=== PATIENT | male | born 1940 | race Caucasian/White ===

== ENCOUNTER → 2020-01-18 13:30 | Outpatient (BNVA) | payer MEDICARE, SELFPAY | PROVIDERS: Family Provider Family Medicine; PCP Family Medicine; Visit Provider Nurse Practitioner Family | DX: R39.9 Unspecified symptoms and signs involving the genitourinary system (principal); N40.1 Benign prostatic hyperplasia with lower urinary tract symptoms; N13.8 Other obstructive and reflux uropathy; N35.919 Unspecified urethral stricture, male, unspecified site | CPT/HCPCS: 81001 ==

== ENCOUNTER → 2020-02-22 09:33 | Outpatient (BNVA) | payer MEDICARE, SELFPAY | PROVIDERS: Family Provider Family Medicine; PCP Family Medicine; Visit Provider Urology | DX: N35.919 Unspecified urethral stricture, male, unspecified site (principal) | CPT/HCPCS: 81001 ==

== ENCOUNTER → 2020-06-12 09:46 | Outpatient (BNVA) | payer MEDICARE, SELFPAY | PROVIDERS: Family Provider Family Medicine; PCP Family Medicine; Visit Provider Urology | DX: R39.9 Unspecified symptoms and signs involving the genitourinary system (principal); N35.919 Unspecified urethral stricture, male, unspecified site | CPT/HCPCS: 81001 ==

== ENCOUNTER → 2020-12-12 09:13 | Outpatient (BNVA) | payer MEDICARE, SELFPAY | PROVIDERS: PCP Family Medicine; Visit Provider Urology | DX: R39.9 Unspecified symptoms and signs involving the genitourinary system (principal); N99.112 Postprocedural membranous urethral stricture, male | CPT/HCPCS: 81003 ==

== ENCOUNTER 2020-12-19 16:23 | Outpatient (CLI) | payer MEDICARE, SELFPAY ==
--- NOTE | 2020-12-19 | MR_ITS ---
WS: [id number] MRI LEFT KNEE NONCONTRAST TECHNIQUE: Axial PD, coronal PD fat sat, coronal PD, sagittal PD, and sagittal PD fat-sat images obta ined. CLINICAL INFORMATION: MEDIAL TEAR LEFT COMPARISON: None. FINDINGS: Distal quadriceps and patella tendons are intact. Small suprapatellar effusion. Chronic thinning of t he ACL. No acute appearing ACL tears. Normal PCL. Normal lateral meniscus. Blunting of the posterior horn medial meniscus with chronic meniscal tear. Edema with acute appearing radial tear involving the posterior horn medial meniscus. Moderate to advanced chondromalacia involving the medial and lateral joint compartments with joint sp anisha narrowing. Normal lateral collateral ligament. Soft tissue edema and fluid deep to the MCL consis tent with ligamentous injury. MCL is intact. 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 Subchondral edema. MR/MR knee LT wo con* [id number] IMPRESSION: 1. Small suprapatellar effusion. 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 2. Chronic appearing thinning of the ACL which appears intact. Normal PCL. 3. Chronic thinning of the medial meniscus with acute and chronic tears involv ing the posterior horn medial meniscus extending to the articular surface. Acut e appearing radial tear. 4. Edema along the MCL consistent with ligamentous injury which appears intact . Normal LCL. 5. Advanced chondromalacia patella with multiple prominent chondral defects wo rse involving the medial patella facet. Small amount of subchondral edema.
== END 2020-12-19 16:24 | disposition home or self-care (01) ==
PROVIDERS: PCP Family Medicine; Visit Provider Orthopaedic Surgery
DX: S83.242A Other tear of medial meniscus, current injury, left knee, initial encounter (principal); M25.462 Effusion, left knee; M22.42 Chondromalacia patellae, left knee; R60.0 Localized edema; X58.XXXA Exposure to other specified factors, initial encounter
CPT/HCPCS: 73721

== ENCOUNTER → 2021-07-30 07:57 | Outpatient (BNVA) | payer MEDICARE, SELFPAY | PROVIDERS: PCP Family Medicine; Visit Provider Nurse Practitioner Family | DX: N99.112 Postprocedural membranous urethral stricture, male (principal); R39.9 Unspecified symptoms and signs involving the genitourinary system; B37.49 Other urogenital candidiasis | CPT/HCPCS: 81003 ==

== ENCOUNTER 2021-08-03 13:42 | Emergency (ER) | payer MEDICARE, SELFPAY ==
[2021-08-03 13:49] VITALS: BP 181/83; PULSE 90; RESP 16; TEMP 36.7; O2SAT 97
--- NOTE | 2021-08-03 14:25 | ED_ITS ---
HPI - Male Genitourinary General: Chief complaint: Urogenital-Male Stated complaint: UTI, Private area swelling Time Seen by Provider: 08/03/21 14:06 PFSH ED PFSH: Medical History Lower urinary tract symptoms (LUTS) Urethral stricture Surgical History H/O arthroscopy of knee left H/O rotator cuff surgery left History of carpal tunnel release left Hx of tonsillectomy Family History Father , at age 63 Cancer tongue Mother , at age 64 Lung disease Social History Alcohol intake: current Alcohol intake frequency: 0-2 Drinks per Day Marital status: Current occupational status: retired History of recent travel: No Course Vital Signs: Vital signs: Vital Signs Temperature 98.1 F 08/03/21 13:49 Pulse Rate 90 08/03/21 13:49 Respiratory Rate 16 08/03/21 13:49 Blood Pressure 181/83 08/03/21 13:49 Pulse Oximetry 97 08/03/21 13:49 MDM - Male Imaging Data: Other Imaging: Radiologist's impression: [address] [id number] ReportSigned Patient: Tanvir Avilez #: [id number]: 2Acct#:[id number]/Sex: 81 / MADM Date: 08/03/21Loc: ERRoom/Bed:Attending Dr: Ordering Provider/Ordering MD: Negro Boswell MD Date of Service: 08/03/21 Procedure(s): US scrotum [id number] Accession Number(s): [id number] Report Number: [id number] PROCEDURE INFORMATION: Exam: US Scrotum Exam date and time: 08/03/2021 2:25 PM Age: 81 years old Clinical indication: Swelling, testicles or scrotum; Additional info: Eval for L testicular pathology TECHNIQUE: Imaging protocol: Real-time ultrasound of the scrotum and contents with color Doppler and image documentation. [place] [facility] [place] [place]/06/[place] 10:01 AM FINDINGS: Right testicle: Right testis measures 4.1 x 2.6 x 3.3 cm. 4 mm right testicular cyst. Intratesticular blood flow demonstrated. Left testicle: Left testis measures 4.5 x 3.0 x 3.2 cm. No intratesticular mass. Asymmetric left intratesticular hyperemia on color flow imaging, raising the possibility of orchitis. Clinical correlation is recommended. Epididymides: Bilateral epididymal cysts. Scrotum: Asymmetric hydroceles, left greater than right, with internal echoes in the left hydrocele. US/US scrotum [id number] IMPRESSION: 1. Asymmetric left intratesticular hyperemia on color flow imaging, raising the possibility of orchitis. Clinical correlation is recommended. 2. Asymmetric hydroceles, left greater than right, with internal echoes in the left hydrocele. 3. Subcentimeter right testicular and bilateral epididymal cysts. Radiation Dose CTDIVOL = (mGy): DLP = (mGy-cm) Dictated By:Kralo Butt MDSigned By:Karlo Butt MDSigned Date/Time:08/03/21 1538DD/ 1425 Discharge Plan Discharge Patient Disposition: Home Clinical Impression: Swelling of testicle, Erythema of skin Condition: Stable Prescriptions: New Antifungal (clotrimazole) 1 % cream 1 applic topical Q12H 14 Days RF: 0 Zyrtec 10 mg tablet 5 mg PO DAILY PRN (Reason: pruritis) 10 Days Qty: 10 RF: 0 No Action phenytoin sodium extended [Dilantin Extended] 100 mg capsule 100 mg PO BID RF: 0 vitamin B complex [B Complex-Vitamin B12] Tablet 1 tab PO DAILY RF: 0 ascorbate calcium (vitamin C) 500 mg tablet 500 mg PO DAILY RF: 0 flaxseed oil 1,000 mg capsule 1,000 mg PO DAILY RF: 0 omega-3 fatty acids [Fish Oil Concentrate] 1,000 mg capsule 1,000 mg PO DAILY RF: 0 melatonin 10 mg capsule 10 mg PO DAILY RF: 0 selenium 100 mcg tablet 100 mcg PO DAILY RF: 0 cholecalciferol (vitamin D3) 10 mcg (400 unit) capsule 10 mcg PO DAILY RF: 0 Referrals: Darell Jackson MD [Primary Care Provider] - Discharge Diet: Advance as tolerated Discharge Activity: Resume usual activity Patient Instructions: Testicular Self-Exam Activity Restrictions/Additional Instructions: Follow-up with Dr. Witt in the next few days for further evaluation of your symptoms., To the emergency room you have any pain, fever/chills, worsening redness, worsening testicular swelling, or new concerning complaints. 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
--- NOTE | 2021-08-03 15:57 | ED_ITS ---
HPI - General Adult General: Chief complaint: Urogenital-Male Stated complaint: UTI, Private area swelling Time Seen by Provider: 08/03/21 14:06 History of Present Illness: HPI narrative: Patient is a 81-year-old male with a history of self cath followed by Dr. Witt presenting to emergency room for evaluation of left testicular swelling erythema and pruritus. Patient was seen by nurse practitioner earlier this week and was told that he may have a fungal infection. Since then, patient has noticed increased swelling and mild pain. Patient denies any urinary discharge. Is not currently sexually active. Patient denies any fever/chills, dysuria/hematuria/polyuria. Patient denies any trauma to the groin. Patient was evaluated on 07/30/2021 and was diagnosed with candidasis infection Onset: 1 week ago Duration:1 week Location:home Severity:moderate Review of Systems Narrative: Constitutional: No fever, no chills. HEENT: No vision changes CV: No chest pain, no palpitations PULM: no cough, no dyspnea. GI: No abdominal pain, no N/V/D. : No dysuria MSKEL: No muscle pain SKIN: +L testicular erythema and swelling, +L testicular pruritis NEURO: No headache, no focal weakness. HEME: No visible bruises PSYCH: Normal mood PFSH ED PFSH: Medical History Lower urinary tract symptoms (LUTS) Urethral stricture Surgical History H/O arthroscopy of knee left H/O rotator cuff surgery left History of carpal tunnel release left Hx of tonsillectomy Family History Father , at age 63 Cancer tongue Mother , at age 64 Lung disease Social History Alcohol intake: current Alcohol intake frequency: 0-2 Drinks per Day Marital status: Current occupational status: retired History of recent travel: No Physical Exam Narrative: EXAM NARRATIVE: Head: Atraumatic Eyes: PERRL, conjunctiva without injection ENT: Mucous membrane moist NECK: Supple, ROM intact LUNGS: LCTAB, no crackles/rhonchi CV: RRR ABDOMEN: Soft, nontender in all quadrants EXTREMITY: Normal ROM SKIN: No rash or erythema NEURO: Awake and alert, no focal motor deficits PSYCH: Normal mood and affect : +mild L testicular swelling and erythema, no tenderness to palpation, normal testicular lie, cremesteric reflex intact L side Course Vital Signs: Vital signs: Vital Signs Temperature 98.1 F 08/03/21 13:49 Pulse Rate 82 08/03/21 16:01 Respiratory Rate 15 08/03/21 16:01 Blood Pressure 181/83 08/03/21 13:49 Pulse Oximetry 97 08/03/21 16:01 MDM - General Adult MDM Narrative: Medical decision making narrative: 81-year-old male presenting to the emergency room for evaluation of left testicular swelling, erythema, and pruritus with occasional pain. On exam, patient has mild swelling and erythema of the left testicle. No suspicion for ovarian torsion given findings on physical exam. He is not currently sexually active. Ultrasound showed possible orchitis given hyperemia of the testes. In the setting of self cath, likely this can be an infection. Will treat with levofloxacin 500 mg daily x10 days. I discussed with patient the risk of using levofloxacin including aortic dissection and tendinopathy. Patient is aware of these risk factors and elects to take the medicine. In addition, I will give patient clotrimazole for possible fungal infection of the skin and Zyrtec for pruritis. Disposition: Discharge. Patient counseled regarding diagnostic impression, treatment plan. Patient given ED strict return precautions to return for continuation, worsening, or development of new symptoms. Instructed to f/u w/ Urology regarding symptoms today. Patient verbalized understanding. Imaging Data^: Other Imaging: Radiologist's impression: [id number] [place], [place] [address]Czfwncgbky ReportSigned Patient: Tanvir Avilez #: [id number]: 2Acct#:[id number]/Sex: 81 / MADM Date: 08/03/21Loc: ERRoom/Bed:Attending Dr: Ordering Provider/Ordering MD: Negro Boswell MD Date of Service: 08/03/21 Procedure(s): US scrotum [id number] Accession Number(s): [id number] Report Number: [id number] PROCEDURE INFORMATION: Exam: US Scrotum Exam date and time: 08/03/2021 2:25 PM Age: 81 years old Clinical indication: Swelling, testicles or scrotum; Additional info: Eval for L testicular pathology TECHNIQUE: Imaging protocol: Real-time ultrasound of the scrotum and contents with color Doppler and image documentation. [place]: [facility] [place] Testicular 07/06/2015 10:01 AM FINDINGS: Right testicle: Right testis measures 4.1 x 2.6 x 3.3 cm. 4 mm right testicular cyst. Intratesticular blood flow demonstrated. Left testicle: Left testis measures 4.5 x 3.0 x 3.2 cm. No intratesticular mass. Asymmetric left intratesticular hyperemia on color flow imaging, raising the possibility of orchitis. Clinical correlation is recommended. Epididymides: Bilateral epididymal cysts. Scrotum: Asymmetric hydroceles, left greater than right, with internal echoes in the left hydrocele. US/US scrotum [id number] IMPRESSION: 1. Asymmetric left intratesticular hyperemia on color flow imaging, raising the possibility of orchitis. Clinical correlation is recommended. 2. Asymmetric hydroceles, left greater than right, with internal echoes in the left hydrocele. 3. Subcentimeter right testicular and bilateral epididymal cysts. Radiation Dose CTDIVOL = (mGy): DLP = (mGy-cm) Dictated By:Karlo Butt MDSigned By:Karlo Butt MDSigned Date/Time:08/03/21 1538DD/ 1425 Discharge Plan Discharge Patient Disposition: Home Clinical Impression: Swelling of testicle, Erythema of skin, Orchitis Condition: Stable Prescriptions: New Antifungal (clotrimazole) 1 % cream 1 applic topical Q12H 14 Days RF: 0 Zyrtec 10 mg tablet 5 mg PO DAILY PRN (Reason: pruritis) 10 Days Qty: 10 RF: 0 levofloxacin 500 mg tablet 500 mg PO DAILY 10 Days RF: 0 No Action phenytoin sodium extended [Dilantin Extended] 100 mg capsule 100 mg PO BID RF: 0 vitamin B complex [B Complex-Vitamin B12] Tablet 1 tab PO DAILY RF: 0 ascorbate calcium (vitamin C) 500 mg tablet 500 mg PO DAILY RF: 0 flaxseed oil 1,000 mg capsule 1,000 mg PO DAILY RF: 0 omega-3 fatty acids [Fish Oil Concentrate] 1,000 mg capsule 1,000 mg PO DAILY RF: 0 melatonin 10 mg capsule 10 mg PO DAILY RF: 0 selenium 100 mcg tablet 100 mcg PO DAILY RF: 0 cholecalciferol (vitamin D3) 10 mcg (400 unit) capsule 10 mcg PO DAILY RF: 0 Discharge Orders: Discharge ED (Routine); Ordered 08/03/21 Ordered By: Negro Boswell Referrals: Darell Jackson MD [Primary Care Provider] - Discharge Diet: Advance as tolerated Discharge Activity: Resume usual activity Patient Instructions: Testicular Self-Exam Activity Restrictions/Additional Instructions: Follow-up with Dr. Witt in the next few days for further evaluation of your symptoms., To the emergency room you have any pain, fever/chills, worsening redness, worsening testicular swelling, or new concerning complaints. Please take your antibiotics as instructed. Come back if you have any issues. 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
[2021-08-03 16:01] VITALS: PULSE 82; RESP 15; O2SAT 97
== END 2021-08-03 16:02 | disposition home or self-care (01) ==
PROVIDERS: Emergency Provider Emergency Medicine; PCP Family Medicine
DX: N50.89 Other specified disorders of the male genital organs (principal); L53.8 Other specified erythematous conditions; N45.2 Orchitis
CPT/HCPCS: 76870; 99283

== ENCOUNTER → 2021-09-11 12:55 | Outpatient (BNVA) | payer MEDICARE, SELFPAY | PROVIDERS: PCP Family Medicine; Visit Provider Urology | DX: R39.9 Unspecified symptoms and signs involving the genitourinary system (principal); N99.112 Postprocedural membranous urethral stricture, male; N31.2 Flaccid neuropathic bladder, not elsewhere classified; L53.9 Erythematous condition, unspecified | CPT/HCPCS: 81003 ==

== ENCOUNTER 2021-11-16 12:16 | Emergency (ER) | payer MEDICARE, SELFPAY ==
[2021-11-16 12:21] VITALS: BP 164/89; PULSE 82; RESP 18; TEMP 36.8; O2SAT 97; BMI 25.0
--- NOTE | 2021-11-16 12:44 | CTR_ITS ---
PROCEDURE INFORMATION: Exam: CT Abdomen And Pelvis With Contrast Exam date and time: 11/16/2021 3:06 PM Age: 81 years old Clinical indication: Constipation; Additional info: Change in bowel and constipation TECHNIQUE: Imaging protocol: Computed tomography of the abdomen and pelvis with contrast. Radiation optimization: All CT scans at this facility use at least one of these dose optimization techniques: automated exposure control; mA and/or kV adjustment per patient size (includes targeted exams where dose is matched to clinical indication); or iterative reconstruction. Contrast material: OMNIPAQUE 300; Contrast volume: 95 ml; Contrast route: INTRAVENOUS (IV); COMPARISON: CT abdomen pelvis w con* [id number] 10/02/2016 9:52 AM RADIATION DOSE METRICS: Total DLP (mGy-cm): 1354.86 FINDINGS: Liver: Normal. No mass. Gallbladder and bile ducts: Normal. No calcified stones. No ductal dilation. Pancreas: Normal. No ductal dilation. Spleen: Normal. No splenomegaly. Adrenal glands: 1.4 cm left adrenal gland nodule, incompletely characterized on single contrast phase study, but statistically likely to represent an adenoma Kidneys and ureters: Normal. No hydronephrosis. Stomach and bowel: Colonic diverticulosis without findings of acute diverticulitis. No obstruction. No mucosal thickening. Appendix: No evidence of appendicitis. Intraperitoneal space: No free air. No significant fluid collection. Vasculature: No abdominal aortic aneurysm. Lymph nodes: No enlarged lymph nodes. Urinary bladder: Unremarkable as visualized. Reproductive: Unremarkable as visualized. Bones/joints: No acute fracture. Right hip arthroplasty noted. Soft tissues: Unremarkable. CT/CT abdomen pelvis w con* [id number] IMPRESSION: No acute findings.
--- NOTE | 2021-11-16 12:45 | W.ED.ABDPA2 ---
HPI - Abdominal Pain General: Chief Complaint: Abdominal Pain Stated Complaint: PT states theyre bowels are blocked Time Seen by Provider: 11/16/21 12:33 Source: patient Mode of arrival: ambulatory Limitations: no limitations History of Present Illness: This patient comes to the emergency department by private vehicle. He states over the past approximately 5 to 6 weeks he has had a change in his bowel habits. He states he normally would have bowel movements approximately 3 times daily and over the period of time of concern his bowel habits have diminished to perhaps 1 bowel movement daily and some days no bowel movement and over the last 48 hours he has felt as if he could not have a bowel movement without taking a laxative which he did yesterday. No bowel movement today. He denies any known blood in his bowel movements he states that they seem darker than a bit have been previously. He has had no abdominal surgeries. He has no history of having a colonoscopy but he states he was told he had irritable bowel syndrome in the past seem to have changing bowel habits related to stress but he is subsequently is retired and denies any emotional stress or feeling that his irritable bowel has flared up. He denies any coronary artery disease or diabetes or pulmonary disease. He has not had a change in his usual medications, diet etc. No travel or antibiotic use. He does not use tobacco but drinks occasional beer perhaps 1 beer a day. He denies any fevers or chills nausea vomiting or diarrhea. He does have some dysuria due to a urethral stricture that developed post hospitalization and catheterization. And states that he developed a urethral stricture and does self-catheterization on a daily basis. He normally can void but has been told by urologist to self cath to prevent stricture from reforming. Pertinent past history: constipation Associated Symptoms: Reports change in bowel habits and constipation; Denies chills, diarrhea, dysuria, fever(s), hematochezia, poor appetite and syncope Review of Systems Const: Denies: fever(s), chills, body aches or change in appetite Eyes: Denies: change in vision ENMT: Denies: throat pain, odynophagia, tinnitus or nasal congestion Card: Denies: chest pain, palpitations, irregular heart rhythm, edema or syncope Resp: Denies: dyspnea, productive cough or non-productive cough GI: Reports: constipation and change in bowel habits; Denies: diarrhea or hematochezia : Denies: flank pain, difficulty urinating, dysuria, urinary frequency, urinary urgency or urinary hesitancy Musc: Denies: neck pain, back pain, extremity pain or extremity swelling Skin/Breast: Denies: rash or sores Neuro: Denies: headache(s), numbness in extremities, weakness in extremities or vertigo Psych: Denies: anxiety, depression or mood swings Endo: Denies: polyuria Zeeshan/Lymph: Denies: easy bruising or easy bleeding All/Imm: Denies: urticaria PFSH ED PFSH: Medical History Lower urinary tract symptoms (LUTS) Urethral stricture Surgical History H/O arthroscopy of knee left H/O rotator cuff surgery left History of carpal tunnel release left Hx of tonsillectomy Family History Father , at age 63 Cancer tongue Mother , at age 64 Lung disease Social History Alcohol intake: current Alcohol intake frequency: 0-2 Drinks per Day Marital status: Current occupational status: retired History of recent travel: No Physical Exam Narrative: EXAM NARRATIVE: Patient is alert makes good eye contact. Speech is goal-directed. Const: COMMON NORMALS: no acute distress, average body habitus, patient oriented x3 and healthy appearing HENMT: COMMON NORMALS: normocephalic, atraumatic, external ears normal, Normal external nose present, moist oral mucous membranes and oropharynx normal HEAD & SCALP: normocephalic and atraumatic NOSE: Normal external nose present EXTERNAL EAR: Yes external ears normal Eye: COMMON NORMALS: Equal, round and reactive pupils present, EOMs intact bilaterally, conjunctivae normal and no scleral icterus CONJUNCTIVA: Yes conjunctivae normal PUPIL: Yes Equal, round and reactive pupils present Neck/C-Spine: COMMON NORMALS: full ROM, no lymphadenopathy, no JVD and Thyroid normal THYROID: Thyroid normal Lymph: LYMPHATIC: no lymphadenopathy noted Chest: COMMONS NORMALS: normal inspection of the chest Resp: COMMON NORMALS: normal respiratory effort, No retractions and clear to auscultation bilaterally AUSCULTATION: clear to auscultation bilaterally Cardio: COMMON NORMALS: no JVD, regular rate, regular rhythm and No murmurs present (Cardio) RATE: regular rate RHYTHM: regular rhythm GI: COMMON NORMALS: Normal to inspection, nondistended, normoactive bowel sounds present, Soft to palpation, non-tender, No hepatosplenomegaly present and no masses PALPATION: Yes Soft to palpation and Yes No hepatosplenomegaly present RECTAL EXAM: Yes visual inspection normal, Yes normal sphincter tone (No masses or stool within the length of the examining finger.), Yes prostate normal, No hemorrhoids, No Lesions present (GI), No Fistula present (GI) and No tenderness : COMMON NORMALS: Yes no CVA tenderness BLADDER/KIDNEY EXAM: Yes no CVA tenderness Back/Pelvis: COMMON NORMALS: no CVA tenderness, thoracic and lumbar spine normal to inspection, no thoracic nor lumbar tenderness, thoraco-lumbar ROM normal and straight leg raise negative bilaterally Extremity: COMMON NORMALS: normal to inspection, capillary refill normal, no joint enlargement, no calf tenderness and no pedal edema Neuro: COMMON NORMALS: patient oriented x3, no focal motor deficits and no sensory deficits noted CRANIAL NERVES: Yes CN normal except as noted Psych: COMMON NORMALS: mental status grossly normal and Normal thought process present THOUGHT PROCESS: Normal thought process present Skin: COMMON NORMALS: no rashes or lesions noted and no wounds GENERAL SKIN EXAM: no rashes or lesions noted Course Reevaluation(s): Reevaluation #1: Patient remained stable. No new findings on reexamination. Time: 15:54 Vital Signs: Vital signs: Vital Signs Temperature 98.2 F 11/16/21 12:21 Pulse Rate 82 11/16/21 12:21 Respiratory Rate 18 11/16/21 12:21 Blood Pressure 164/89 11/16/21 12:21 Pulse Oximetry 97 11/16/21 12:21 MDM - Abdominal Pain Medical Decision Making Patient's history of changing in's stool pattern over the last several weeks without any other worrisome findings on clinical exam. His laboratories as well as a CT scan are reassuring at this time without any evidence of a surgical abdomen, or other obvious pathology on CT scan. His urinalysis does have a bit of pyuria but is not having any symptoms he is afebrile not tachycardic etc. so we will going to culture his urine. He does do intermittent self cathing and this may be a contributing factor for this finding. I discussed all findings with the patient and their implications. I think he has somewhat high stress obsessed just individual as evidenced by his admitted history of irritable bowel syndrome. I advised him to: 1 start on a Metamucil bowel regimen, to contact his primary critical care nurse specialist to arrange referral for colonoscopy as he has never had 1. He voiced understanding of our discussion. Currently clinically stable without any evidence of ongoing emergency medical condition. We discussed return precautions. Differential Diagnosis Unlikely small bowel obstruction Medical Records I reviewed the patient's medical records. Lab Data I reviewed the patient's lab results. : 11/16/21 14:02 11/16/21 14:02 Labs/Radiology: Radiology Impressions Abdomen/Pelvis CT 11/16/21 12:44 IMPRESSION: No acute findings. Laboratory Results WBC 7.0 10^3/uL (4.0-10.0) 11/16/21 14:02 Corrected WBC Cancelled 11/16/21 13:06 RBC 4.42 10^6/uL (4.1-5.3) 11/16/21 14:02 Hgb 14.7 g/dL (11.7-16.6) 11/16/21 14:02 Hct 44.4 % (42.0-52.0) 11/16/21 14:02 MCV 100.5 fl (80-94) H 11/16/21 14:02 MCH 33.3 pg (28.0-34.0) 11/16/21 14:02 MCHC 33.1 g/dL (30.0-36.0) 11/16/21 14:02 RDW 12.4 % (12.1-15.1) 11/16/21 14:02 Plt Count 195 10^3/cmm (130-400) 11/16/21 14:02 MPV 8.7 fL (7.4-10.4) 11/16/21 14:02 Gran % Cancelled 11/16/21 13:06 Neut % (Auto) 55.1 % 11/16/21 14:02 Lymph % (Auto) 33.8 % 11/16/21 14:02 Glenn % (Auto) 9.7 % 11/16/21 14:02 Eos % (Auto) 0.4 % 11/16/21 14:02 Baso % (Auto) 0.9 % 11/16/21 14:02 Neut # (Auto) 3.84 10^3/uL (1.8-7.7) 11/16/21 14:02 Lymph # (Auto) 2.4 10^3/uL (0.8-4.8) 11/16/21 14:02 Glenn # (Auto) 0.7 10^3/uL (0.2-0.9) 11/16/21 14:02 Eos # (Auto) 0.0 10^3/uL (0.0-0.8) 11/16/21 14:02 Baso # (Auto) 0.1 10^3/uL (0.0-0.1) 11/16/21 14:02 Absolute Gran (auto) Cancelled 11/16/21 13:06 Nucleated RBC % (auto) 0 % 11/16/21 14:02 Nucleated RBCs # 0.0 /100WBC 11/16/21 14:02 Sodium 134 mmol/L (136-145) L 11/16/21 14:02 Potassium 4.3 mmol/L (3.5-5.1) 11/16/21 14:02 Chloride 101 mmol/L (98-107) 11/16/21 14:02 Carbon Dioxide 24 mmol/L (22-29) 11/16/21 14:02 Anion Gap 13.3 (5-19) 11/16/21 14:02 BUN 18 mg/dL (8-23) 11/16/21 14:02 Creatinine 0.7 mg/dL (0.7-1.2) 11/16/21 14:02 GFR Calculation Not Reportable 11/16/21 14:02 Glucose 97 mg/dL (65-115) 11/16/21 14:02 Calculated Osmolality 280 mOsm/kg (285-295) L 11/16/21 14:02 Calcium 9.5 mg/dL (8.5-10.5) 11/16/21 14:02 Total Bilirubin 0.3 mg/dL (0.15-1.2) 11/16/21 14:02 AST 22 U/L (0-40) 11/16/21 14:02 ALT 15 U/L (0-41) 11/16/21 14:02 Alkaline Phosphatase 117 IU/L (40-130) 11/16/21 14:02 Total Protein 6.8 g/dL (6.6-8.7) 11/16/21 14:02 Albumin 4.2 g/dL (3.5-5.2) 11/16/21 14:02 Globulin 2.6 g/dL (1.3-4.6) 11/16/21 14:02 Lipase 36 U/L (13-60) 11/16/21 14:02 Urine Color Yellow (Yellow) 11/16/21 Unknown Urine Appearance Sl hazy (CLEAR) 11/16/21 Unknown Urine pH 6.5 (5-7) 11/16/21 Unknown Ur Specific Eden 1.015 (1.005-1.030) 11/16/21 Unknown Urine Protein Neg (Negative) 11/16/21 Unknown Urine Glucose (UA) Norm (Normal) 11/16/21 Unknown Urine Ketones Negative (Negative) 11/16/21 Unknown Urine Blood Neg (Negative) 11/16/21 Unknown Urine Nitrate Negative (Negative) 11/16/21 Unknown Urine Bilirubin Neg (Negative) 11/16/21 Unknown Urine Urobilinogen Norm mg/dL (Negative) 11/16/21 Unknown Ur Leukocyte Esterase 1+ (Negative) H 11/16/21 Unknown Urine RBC None /hpf (0-2) 11/16/21 Unknown Urine WBC 15-25 /hpf (0-5) H 11/16/21 Unknown Ur Squamous Epith Cells None /hpf (0-5) 11/16/21 Unknown Amorphous Sediment Not Reportable 11/16/21 Unknown Urine Bacteria 2+ /hpf (NONE) H 11/16/21 Unknown Other Data Reviewed radiology report no evidence of acute pathology. Discharge Plan Discharge Patient Disposition: Home Clinical Impression: History of change in bowel patterns Condition: Stable Prescriptions: No Action phenytoin sodium extended [Dilantin Extended] 100 mg capsule 100 mg PO BID 0RF vitamin B complex [B Complex-Vitamin B12] Tablet 1 tab PO DAILY 0RF ascorbate calcium (vitamin C) 500 mg tablet 500 mg PO DAILY 0RF flaxseed oil 1,000 mg capsule 1,000 mg PO DAILY 0RF Rx Instructions: administer with a meal omega-3 fatty acids [Fish Oil Concentrate] 1,000 mg capsule 1,000 mg PO DAILY 0RF melatonin 10 mg capsule 10 mg PO DAILY 0RF selenium 100 mcg tablet 100 mcg PO DAILY 0RF cholecalciferol (vitamin D3) 10 mcg (400 unit) capsule 10 mcg PO DAILY 0RF Discharge Orders: Discharge ED (Routine); Ordered 11/16/21 Ordered By: Santos Ruiz Referrals: Darell Jackson MD [Primary Care Provider] - (schedule for colonoscopy) Discharge Diet: Usual diet Discharge Activity: Resume usual activity Patient Instructions: Opioid Safety Activity Restrictions/Additional Instructions: Purchase [id number] MiraLAX and begin a regimen of 1 tablespoon in water daily. Continue usual activity and diet and medications. Contact your primary critical care nurse specialist to discuss referral for a colonoscopy. Should you develop any new, persistent, worsening symptoms such as abdominal pain, blood in your stools, high fevers return to this or the nearest emergency department. We have cultured your urine to ensure that there is no significant infection and you will be contacted by the staff should this culture require further intervention. Coding Level of Care Code ED Crimping Machine Operator for [place] Fwd Exam Comprehensive
[2021-11-16 14:13] LABS: Basophils # 0.1 10^3/uL (0.0-0.1); Basophils % 0.9 %; Eosinophils % 0.4 %; Hematocrit 44.4 % (42.0-52.0); Hemoglobin 14.7 g/dL (11.7-16.6); Lymphocytes # 2.4 10^3/uL (0.8-4.8); Lymphocytes % 33.8 %; Mean Corpuscular HGB Conc 33.1 g/dL (30.0-36.0); Mean Corpuscular Hemoglobin 33.3 pg (28.0-34.0); Mean Corpuscular Volume 100.5 fl (80-94); Mean Platelet Volume 8.7 fL (7.4-10.4); Monocytes # 0.7 10^3/uL (0.2-0.9); Monocytes % 9.7 %; Neutrophils # 3.84 10^3/uL (1.8-7.7); Neutrophils % 55.1 %; Nucleated Red Blood Cells % 0 %; Platelet Count 195 10^3/cmm (130-400); Red Blood Count 4.42 10^6/uL (4.1-5.3); Red Cell Distribution Width 12.4 % (12.1-15.1)
[2021-11-16 14:54] LABS: Alanine Aminotransferase 15 U/L (0-41); Albumin Level 4.2 g/dL (3.5-5.2); Alkaline Phosphatase 117 IU/L (40-130); Anion Gap 13.3 (5-19); Aspartate Amino Transferase 22 U/L (0-40); Blood Urea Nitrogen 18 mg/dL (8-23); Calcium 9.5 mg/dL (8.5-10.5); Carbon Dioxide 24 mmol/L (22-29); Chloride 101 mmol/L (98-107); Globulin 2.6 g/dL (1.3-4.6); Glucose 97 mg/dL (65-115); Lipase 36 U/L (13-60); Osmolality Calculated 280 mOsm/kg (285-295); Potassium 4.3 mmol/L (3.5-5.1); Sodium 134 mmol/L (136-145); Total Bilirubin 0.3 mg/dL (0.15-1.2); Total Protein 6.8 g/dL (6.6-8.7)
[2021-11-16] MEDS: iohexol 300 mg/mL 100 mL Btl IV (15:03)
[2021-11-16 15:12] LABS: Protein Urine Neg (Negative); Specific Gravity, Urine 1.015 (1.005-1.030); Urine Appearance SL Hazy (CLEAR); Urine Color Yellow (Yellow); pH Urine 6.5 (5-7)
[2021-11-16 15:13] LABS: Add Urine Culture? Yes; Add Urine Microscopic? YES; Bacteria Urine 2+ /hpf; Bilirubin Urine Neg (Negative); Blood Urine Neg (Negative); Glucose Urine UA Norm (Normal); Ketones Urine Negative (Negative); Leukocyte Esterase Urine 1+ (Negative); Nitrate Urine Negative (Negative); Urobilinogen Urine Norm (Negative); WBC Urine 15-25 /hpf (0-5)
[2021-11-16 16:41] VITALS: BP 167/97; PULSE 78; RESP 17; O2SAT 95
== END 2021-11-16 16:43 | disposition home or self-care (01) ==
PROVIDERS: Emergency Provider Emergency Medicine; PCP Family Medicine
DX: K59.00 Constipation, unspecified (principal)
CPT/HCPCS: 74177; 80053; 81001; 83690; 85025; 87077; 87086; 87186; 99283; Q9967

== ENCOUNTER → 2021-12-05 13:15 | Outpatient (BNVA) | payer MEDICARE, SELFPAY | PROVIDERS: PCP Family Medicine; Visit Provider Urology | DX: N31.2 Flaccid neuropathic bladder, not elsewhere classified (principal); Z79.899 Other long term (current) drug therapy | CPT/HCPCS: 81003; 87077; 87086; 87184 ==

== ENCOUNTER → 2022-02-24 11:04 | Outpatient (BNVA) | payer MEDICARE, SELFPAY | PROVIDERS: PCP Family Medicine; Visit Provider Nurse Practitioner Family | DX: N99.112 Postprocedural membranous urethral stricture, male (principal); R39.9 Unspecified symptoms and signs involving the genitourinary system | CPT/HCPCS: 81003; 87086; 99213 ==

== ENCOUNTER → 2022-04-21 15:39 | Outpatient (BNVA) | payer MEDICARE, SELFPAY | PROVIDERS: PCP Family Medicine; Visit Provider Urology | DX: N99.112 Postprocedural membranous urethral stricture, male (principal); F41.9 Anxiety disorder, unspecified; N50.89 Other specified disorders of the male genital organs; R39.9 Unspecified symptoms and signs involving the genitourinary system | CPT/HCPCS: 51741; 51798; 81003; 99213 ==

== ENCOUNTER 2023-06-02 12:26 | Inpatient (IN) | payer MEDICARE, SELFPAY ==
[2023-06-02] VITALS (57 sets, daily range): BP systolic 117–159; BP diastolic 64–99; PULSE 69–154; RESP 7–24; TEMP 36.7–36.8; O2SAT 93–99; BMI 24.3
--- NOTE | 2023-06-02 12:32 | ECG_ITS ---
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 Measurements Intervals [place] Rate: 154 P: 0 CT: 0 QRS: -19 QRSD: 83 T: 97 QT: 242 QTc: 388 Interpretive Statements ATRIAL FLUTTER WITH RAPID VENTRICULAR RESPONSE NONSPECIFIC ST & T-WAVE ABNORMALITY CRITICAL TEST RESULT No previous ECG available for comparison Electronically Signed On 06-02-2023 16:46:26 CDT by Madina Phelps M.D. [id number]
--- NOTE | 2023-06-02 12:35 | ECG_ITS ---
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 Measurements Intervals [place] Rate: 74 P: 65 ID: [id number] QRS: -15 QRSD: 90 T: 51 QT: 351 QTc: 391 Interpretive Statements SINUS RHYTHM LOW QRS VOLTAGE IN PRECORDIAL LEADS [QRS DEFLECTION < 1.0 mV IN CHEST LEADS] MODERATE VOLTAGE CRITERIA FOR LVH, CONSIDER NORMAL VARIANT [MEETS CRITERIA IN ONE OF: R(aVL), S(V1), R(V5), R(V5/V6)+S(V1)] No previous ECG available for comparison Electronically Signed On 06-02-2023 16:45:45 CDT by Madina Phelps M.D. [id number]
--- NOTE | 2023-06-02 12:35 | XR_ITS ---
WS: [id number] EXAMINATION: XR chest 1V portable [id number] REASON FOR EXAM: dyspnea/cough COMPARISON: Previous study ORDER DATE: 06/02/2023 12:37 PM FINDINGS: There are scattered parenchymal and perihilar granulomatous calcifications. The cardiac and mediastin al outlines are unremarkable. There are no pleural effusions. There is calcific aortic change. Degene rative spine changes are present. IMPRESSION: NO ACUTE PULMONARY CHANGE.
[2023-06-02] MEDS: dilTIAZem 5 mg/mL SDV 5 mL 20 MG IVP (12:43)
[2023-06-02] MEDS: dilTIAZem 100 MG in sodium chloride 0.9% (add-van) 100 ML IV (12:44)
[2023-06-02] MEDS: dilTIAZem 30 mg Tablet PO ×2 (12:52→17:56)
[2023-06-02 12:57] LABS: Basophils # 0.1 10^3/uL (0.0-0.1); Basophils % 0.7 %; Eosinophils # 0.1 10^3/uL (0.0-0.8); Eosinophils % 0.8 %; Hematocrit 48.3 % (37-53); Lymphocytes # 2.7 10^3/uL (0.8-4.8); Lymphocytes % 37.4 %; Mean Corpuscular HGB Conc 33.7 g/dL (30-55); Mean Corpuscular Hemoglobin 33.2 pg (27-33); Mean Corpuscular Volume 98.4 fl (82-101); Mean Platelet Volume 8.5 fL (7.4-10.4); Monocytes # 0.8 10^3/uL (0.2-0.9); Monocytes % 10.7 %; Neutrophils % 50.1 %; Nucleated Red Blood Cells % 0 %; Platelet Count 223 10^3/cmm (157-399); Red Blood Count 4.91 10^6/uL (3.85-5.65); Red Cell Distribution Width 12.7 % (12.1-15.1); White Blood Count 7.19 10^3/uL (3.29-11.43)
--- NOTE | 2023-06-02 13:04 | W.ED.ARRPALP ---
HPI - Arrhythmia/Palpitations General: Chief Complaint: Nausea/Vomiting/Diarrhea Stated Complaint: elevated hr, sent by Jackson Time Seen by Provider: 06/02/23 12:34 Source: patient Mode of arrival: ambulatory History of Present Illness: 83-year-old male presents emergency room directed here by his primary care from the office. He showed up there was some nausea he was found to be in A-fib with RVR. He has likely had this for several days. He has not had previously had any known history of A-fib he is not having any chest pain no orthopnea no shortness of breath no leg swelling some nausea and mild stomach upset no vomiting or diarrhea. He states this has been intermittently happening for a couple of weeks. No known history of atrial fibrillation he is not on any anticoagulation and no rate control medications. MD complaint: rapid heart beat Onset (ago): week(s) Duration: intermittent Severity: mild Associated symptoms: Reports nausea; Deny anxiety, cough, diaphoresis, muscle cramps, paresthesias, pre-syncope, sense of impending doom, short of breath, syncope or vomiting Review of Systems Const: Reports: fatigue and malaise; Denies: fever(s), chills or diaphoresis ENMT: Denies: throat pain, ear or mastoid pain, nasal discharge or nasal congestion Card: Reports: palpitations and irregular heart rhythm; Denies: chest pain, edema, swelling of feet/ankles, syncope or pre-syncope Resp: Denies: dyspnea, productive cough or non-productive cough GI: Reports: nausea; Denies: abdominal pain or vomiting : Denies: flank pain, dysuria, urinary frequency or urinary urgency Musc: Denies: muscle cramps Skin/Breast: Denies: rash or pruritus Psych: Denies: anxiety PFSH ED PFSH: Medical History Lower urinary tract symptoms (LUTS) Urethral stricture Surgical History H/O arthroscopy of knee left H/O rotator cuff surgery left History of carpal tunnel release left Hx of tonsillectomy Family History Father , at age 63 Cancer tongue Mother , at age 64 Lung disease Social History Smoking and tobacco status: never smoked Alcohol intake: current Alcohol intake frequency: 0-2 Drinks per Day Marital status: Current occupational status: retired Physical Exam Const: GENERAL APPEARANCE: cooperative and comfortable ORIENTATION/CONSCIOUSNESS: Yes awake, Yes oriented to person, Yes oriented to place and Yes oriented to time HENMT: COMMON NORMALS: normocephalic, atraumatic and hearing grossly normal bilaterally HEAD & SCALP: normocephalic and atraumatic Resp: COMMON NORMALS: normal respiratory effort, No retractions, No use of accessory muscles and clear to auscultation bilaterally AUSCULTATION: clear to auscultation bilaterally Cardio: COMMON NORMALS: No murmurs present (Cardio) RATE: tachycardic RHYTHM: abnormal rhythm irregularly irregular GI: COMMON NORMALS: Soft to palpation and No hepatosplenomegaly present AUSCULTATION: Yes normoactive bowel sounds PALPATION: Yes Soft to palpation, No Tenderness to palpation present (GI), No Guarding due to palpation present (GI) and Yes No hepatosplenomegaly present Extremity: COMMON NORMALS: normal to inspection, capillary refill normal, no clubbing, cyanosis or edema, no calf tenderness and no pedal edema Neuro: SENSORIUM/ORIENTATION: Yes oriented to person, Yes oriented to place and Yes oriented to time Skin: COMMON NORMALS: no rashes or lesions noted GENERAL SKIN EXAM: no rashes or lesions noted Course Vital Signs: Vital signs: Vital Signs Temperature 98.1 F 06/02/23 12:36 Pulse Rate 75 06/02/23 13:36 Respiratory Rate 16 06/02/23 13:36 Blood Pressure 120/66 06/02/23 13:36 Pulse Oximetry 97 06/02/23 13:36 Oxygen Delivery Me thod Room Air 06/02/23 12:55 MDM - Arrhythmia/Palpitations Medical Decision Making A-fib with RVR. Patient initially given Cardizem bolus which controlled his rate to the 70s rebounded to 100 very quickly. He was started on a drip and given oral Cardizem. At the time of this dictation he appears to have converted to a normal sinus rhythm we are repeating his EKG. Discussed with the hospitalist will admit for further work-up medication adjustments and consideration of anticoagulation. Medical Records I reviewed the patient's medical records. Lab Data I reviewed the patient's lab results. 06/02/23 12:42 06/02/23 12:42 Laboratory Results WBC 7.19 10^3/uL (3.29-11.43) 06/02/23 12:42 RBC 4.91 10^6/uL (3.85-5.65) 06/02/23 12:42 Hgb 16.30 g/dL (11.27-16.99) 06/02/23 12:42 Hct 48.3 % (37-53) 06/02/23 12:42 MCV 98.4 fl (82-101) 06/02/23 12:42 MCH 33.2 pg (27-33) H 06/02/23 12:42 MCHC 33.7 g/dL (30-55) 06/02/23 12:42 RDW 12.7 % (12.1-15.1) 06/02/23 12:42 Plt Count 223 10^3/cmm (157-399) 06/02/23 12:42 MPV 8.5 fL (7.4-10.4) 06/02/23 12:42 Neut % (Auto) 50.1 % 06/02/23 12:42 Lymph % (Auto) 37.4 % 06/02/23 12:42 [place] % (Auto) 10.7 % 06/02/23 12:42 Eos % (Auto) 0.8 % 06/02/23 12:42 Baso % (Auto) 0.7 % 06/02/23 12:42 Neut # (Auto) 3.60 10^3/uL (1.8-7.7) 06/02/23 12:42 Lymph # (Auto) 2.7 10^3/uL (0.8-4.8) 06/02/23 12:42 [place] # (Auto) 0.8 10^3/uL (0.2-0.9) 06/02/23 12:42 Eos # (Auto) 0.1 10^3/uL (0.0-0.8) 06/02/23 12:42 Baso # (Auto) 0.1 10^3/uL (0.0-0.1) 06/02/23 12:42 Nucleated RBC % (auto) 0 % 06/02/23 12:42 Nucleated RBCs # 0.0 /100WBC 06/02/23 12:42 Sodium 136 mmol/L (136-145) 06/02/23 12:42 Potassium 4.4 mmol/L (3.5-5.1) 06/02/23 12:42 Chloride 98 mmol/L (98-107) 06/02/23 12:42 Carbon Dioxide 28 mmol/L (22-29) 06/02/23 12:42 Anion Gap 14.4 (5-19) 06/02/23 12:42 BUN 20 mg/dL (8-23) 06/02/23 12:42 Creatinine 0.8 mg/dL (0.7-1.2) 06/02/23 12:42 GFR Calculation Not Reportable 06/02/23 12:42 Glucose 100 mg/dL (65-115) 06/02/23 12:42 Calculated Osmolality 285 mOsm/kg (285-295) 06/02/23 12:42 Calcium 9.4 mg/dL (8.5-10.5) 06/02/23 12:42 Total Bilirubin 0.2 mg/dL (0.15-1.2) 06/02/23 12:42 AST 24 U/L (0-40) 06/02/23 12:42 ALT 19 U/L (0-41) 06/02/23 12:42 Alkaline Phosphatase 132 U/L (40-130) H 06/02/23 12:42 NT-Pro-B Natriuret Pep 740 pg/mL (0-450) H 06/02/23 12:42 Total Protein 7.2 g/dL (6.6-8.7) 06/02/23 12:42 Albumin 4.6 g/dL (3.5-5.2) 06/02/23 12:42 Globulin 2.6 g/dL (1.3-4.6) 06/02/23 12:42 TSH 1.62 uIU/mL (0.27-4.20) 06/02/23 12:42 All radiology interpretation(s) finalized by discharge Discharge Plan Discharge Patient Disposition: Admitted As Inpatient Admit Provider: Nataliia Miles Clinical Impression: Atrial fibrillation, new onset, Atrial fibrillation with rapid ventricular response Condition: Stable Coding Level of Care Code ED Erecting Engineer for More Mallory
[2023-06-02 13:28] LABS: Alanine Aminotransferase 19 U/L (0-41); Albumin Level 4.6 g/dL (3.5-5.2); Alkaline Phosphatase 132 U/L (40-130); Anion Gap 14.4 (5-19); Aspartate Amino Transferase 24 U/L (0-40); Blood Urea Nitrogen 20 mg/dL (8-23); Calcium 9.4 mg/dL (8.5-10.5); Carbon Dioxide 28 mmol/L (22-29); Chloride 98 mmol/L (98-107); Creatinine Clr Calc Pharmacy 71.7731; Globulin 2.6 g/dL (1.3-4.6); Glucose 100 mg/dL (65-115); NT Pro B Type Natriuretic Pept 740 pg/mL (0-450); Osmolality Calculated 285 mOsm/kg (285-295); Potassium 4.4 mmol/L (3.5-5.1); Sodium 136 mmol/L (136-145); Total Bilirubin 0.2 mg/dL (0.15-1.2); Total Protein 7.2 g/dL (6.6-8.7)
[2023-06-02 13:40] LABS: Thyroid Stimulating Hormone 1.62 uIU/mL (0.27-4.20)
--- NOTE | 2023-06-02 14:19 | PM.HP ---
Providers/Chief Complaint Admitting Physician: Nataliia Miles MD Primary Care Provider: Darell Jackson MD Chief Complaint: elevated hr, sent by Manuel History of Present Illness Jesus Avilez is a 83 year old male without significant past medical history presented to the hospital with chief complaint of palpitations, A-fib RVR. He was at PCP clinic where his heart rate was high he denies to me any chest pain shortness of breath confusion patient has not noticed that his heart rate was high in the past. No history of hypertension diabetes CHF. His heart rate was in 80s at the time of my evaluation his rhythm was sinus, Requested echo, TSH, troponin and serial EKGs Review of Systems Const: Denies: fever(s) Eyes: Denies: change in vision ENMT: Denies: throat pain Card: Reports: palpitations; Denies: chest pain Resp: Denies: dyspnea GI: Denies: abdominal pain : Denies: flank pain Medications/Allergies Home Medications Medication Instructions Recorded Confirmed Last Taken Type phenytoin sodium extended 100 mg 100 mg PO BID 01/18/20 06/02/23 06/02/23 History capsule (Dilantin Extended) ascorbate calcium (vitamin C) 500 500 mg PO QAM 12/12/20 06/02/23 06/02/23 History mg tablet cholecalciferol (vitamin D3) 10 10 mcg PO QAM 12/12/20 06/02/23 06/02/23 History mcg (400 unit) capsule flaxseed oil 1,000 mg capsule 1,000 mg PO QAM 12/12/20 06/02/23 06/02/23 History selenium 100 mcg tablet 100 mcg PO QAM 12/12/20 06/02/23 06/02/23 History vitamin B complex (B 1 tab PO DAILY 12/12/20 06/02/23 06/02/23 History Complex-Vitamin B12 tablet) melatonin 5 mg tablet 5 mg PO QPM 06/02/23 06/02/23 06/01/23 History omega-3 fatty acids 1,000 mg 1,000 mg PO QAM 06/02/23 06/02/23 06/02/23 History capsule Allergies Allergy/AdvReac Type Severity Reaction Status Date / Time No Known Allergies Allergy Verified 04/21/22 15:54 PFSH Acute PFSH: Medical History Lower urinary tract symptoms (LUTS) Urethral stricture Surgical History H/O arthroscopy of knee left H/O rotator cuff surgery left History of carpal tunnel release left Hx of tonsillectomy Family History Father , at age 63 Cancer tongue Mother , at age 64 Lung disease Social History Smoking and tobacco status: never smoked Alcohol intake: current Alcohol intake frequency: 0-2 Drinks per Day Marital status: Current occupational status: retired Vitals/I&O/Wt Last Vital Signs Temp 98.1 F 06/02/23 12:36 Pulse 75 06/02/23 13:36 Resp 16 06/02/23 13:36 BP 120/66 06/02/23 13:36 Pulse Ox 97 06/02/23 13:36 O2 Del Method Room Air 06/02/23 12:55 Weight last 48 hrs Weight 72.575 kg Physical Exam Narrative: Pleasant and cooperative Sinus rhythm Heart rate in 80s Hemodynamic stable GCS 15 Facial ulcer Awake and alert In good spirits Sinus rhythm Data 06/03/23 04:46 06/03/23 04:46 A&P Assessment and plan (1) Atrial fibrillation, new onset: (2) Atrial fibrillation with rapid ventricular response: Plan New onset A-fib Heart rate well controlled Currently in sinus rhythm at the time of evaluation IV Cardizem turned off switch to p.o. Cardizem [id number] score2 for age, low moderate risk of CVA, will put him on aspirin high-dose once daily Check echo Check magnesium level Check D-dimer Cardiac diet Attestations Medical Necessity Statement*: Plan is to discharge him within 48 hours Diagnoses Atrial fibrillation, new onset I48.91 Atrial fibrillation with rapid ventricular response I48.91
--- NOTE | 2023-06-02 14:46 | USCV_ITS ---
Jesus Avilez Age: 83 Gender: M : 1940 Exam Date: 06/02/2023 16:18 Ordering Phys: Nataliia Miles MD Technologist: CT Exam [place] [facility] [place] Indication: afib BP: 141 / 74 HR: 86 Rhythm: Sinus Technical Quality: Adequate MEASUREMENTS (Male / Female) Normal Values 2D ECHO LV Chamber Size 3.5 cm RV Chamber Size 3.7 cm LVOT Diameter 2.2 cm LV Ejection Fraction MOD 2C 56.1 % LV Ejection Fraction 2C AL 59.0 % LA Diameter 3.6 cm LA Width 3.3 cm LA Height 4.3 cm RA Width 3.8 cm RA Height 4.3 cm Aorta at Sinotubular Diameter 2.7 cm M-MODE Aortic Annulus Diameter 3.1 cm LA Ao Ratio MM 1.3 MV E Point Septal Separation 0.8 cm DOPPLER AV Peak Velocity 123.0 cm/s LVOT Peak Velocity 115.0 cm/s AV Area Cont Eq vti 4.4 cm squared AV Area Cont Eq pk 3.5 cm squared MV Area PHT 3.5 cm squared Mitral E to A Ratio 0.7 MV E' Velocity 36.5 cm/s Mitral E to MV E' Ratio 7.0 Mitral E to LV E' Lateral Ratio 6.0 Mitral E to LV E' Septal Ratio 8.6 TR Peak Velocity 63.0 cm/s TR Peak Gradient 1.6 mmHg TV Peak E Velocity 62.0 cm/s Right Atrial Pressure 3.0 mmHg Pulmonary Artery Systolic Pressu 4.6 mmHg PV Peak Velocity 110.0 cm/s FINDINGS Left Ventricle Left ventricle is normal in size. LV systolic function is normal with EF of 55 to 60%. No regional wall motion abnormalities are seen. Grade 1 diastolic dysfunction Right Ventricle Normal in size and function Right Atrium Normal in size Left Atrium Normal in size Mitral Valve Structurally normal mitral valve. Trace mitral regurgitation Aortic Valve Structurally noraml aortic valve. No significant stenosis or regurgitation. Tricuspid Valve Trace tricuspid regurgitation. Insufficient TR jet to calculate RVSP Pulmonic Valve Not well visualized Pericardium Normal Aorta Normal in size IVC Appears to be normal CONCLUSIONS LV systolic function is normal with EF of 55-60% Grade 1 diastolic dysfunction Trace mitral regurgitation Trace tricuspid regurgitation Compared to prior echocardiogram from 09/13/2014, no significant changes are noted. Naga Celis MD (Electronically Signed) Final Date: 03 June 2023 11:01 S
--- NOTE | 2023-06-02 14:46 | PC.NURSE ---
Patient came from ED to CSU at 1445.
[2023-06-02 15:23] LABS: Estmated Average Glucose 105; Hemoglobin A1C 5.3 % (4.0-6.0)
[2023-06-02 15:25] LABS: D Dimer 0.53 ug/mLFEU (0-0.59)
[2023-06-02] MEDS: enoxaparin 80 mg/0.8 mL Syringe 70 MG SUBCUT (15:33)
[2023-06-02 15:37] LABS: Vitamin B12 776 pg/mL (232-1245)
--- NOTE | 2023-06-02 18:30 | PC.NURSE ---
Cardizem drip is stopped per Dr. Miles.
[2023-06-03] VITALS (54 sets, daily range): BP systolic 119–127; BP diastolic 68–70; PULSE 67–90; RESP 5–21; TEMP 36.7; O2SAT 91–98
[2023-06-03] MEDS: dilTIAZem 30 mg Tablet PO ×2 (01:09→06:01)
[2023-06-03] MEDS: enoxaparin 80 mg/0.8 mL Syringe 70 MG SUBCUT (04:09)
[2023-06-03 05:14] LABS: Basophils # 0.1 10^3/uL (0.0-0.1); Basophils % 0.9 %; Eosinophils # 0.2 10^3/uL (0.0-0.8); Eosinophils % 2.4 %; Hematocrit 43.8 % (37-53); Lymphocytes # 2.6 10^3/uL (0.8-4.8); Lymphocytes % 39.7 %; Mean Corpuscular HGB Conc 33.8 g/dL (30-55); Mean Corpuscular Hemoglobin 33.2 pg (27-33); Mean Corpuscular Volume 98.2 fl (82-101); Mean Platelet Volume 8.3 fL (7.4-10.4); Monocytes # 0.8 10^3/uL (0.2-0.9); Monocytes % 11.3 %; Neutrophils # 3.02 10^3/uL (1.8-7.7); Neutrophils % 45.5 %; Nucleated Red Blood Cells % 0 %; Platelet Count 198 10^3/cmm (157-399); Red Blood Count 4.46 10^6/uL (3.85-5.65); Red Cell Distribution Width 12.8 % (12.1-15.1); White Blood Count 6.63 10^3/uL (3.29-11.43)
[2023-06-03 05:33] LABS: Blood Urea Nitrogen 14 mg/dL (8-23); Calcium 8.7 mg/dL (8.5-10.5); Carbon Dioxide 25 mmol/L (22-29); Chloride 103 mmol/L (98-107); Creatinine Clr Calc Pharmacy 71.7731; Glucose 93 mg/dL (65-115); Magnesium 2.3 mg/dL (1.7-2.3); Osmolality Calculated 282 mOsm/kg (285-295); Phosphorus 2.9 mg/dL (2.5-4.5); Sodium 136 mmol/L (136-145)
--- NOTE | 2023-06-03 08:36 | PM.DCS ---
Discharge Providers Date of Admission: 06/02/23 13:22 Date of Discharge: June 03, 2023 Attending Provider at Admission: Nataliia Miles MD Attending Provider at Discharge: Nataliia Miles MD Primary Care Provider: Darell Jackson MD Diagnoses at Discharge Discharge Diagnosis (1) Atrial fibrillation, new onset: Status: Acute (2) Atrial fibrillation with rapid ventricular response: Status: Acute Reason for Visit Reason for Visit: elevated hr, sent by [facility] Course Hospital Course 83-year-old male without significant past medical history was admitted for management of A-fib RVR his heart rate responded very well to IV Cardizem he was switched to p.o. Cardizem within few hours, his [id number] is 2 he was put on high-dose aspirin, he does not have any history of hypertension diabetes CVA, he is active for his age, normal electrolytes, D-dimer unremarkable, hemoglobin A1c 5.3, magnesium 2.3, potassium 4.0 TSH 1.6 Patient is in sinus rhythm heart rate is in 80s At the time of discharge she will receive metoprolol 12.5 mg twice daily for rate control and high-dose aspirin Physical Exam Narrative: Sinus rhythm S1, S2 Awake and alert GCS 15 Pleasant and cooperative Doing well on room air Discharge Data Studies Completed and Pending Completed Studies During Hospitalization Category Date Time Status XR chest 1V portable [id number] Stat Exams 06/02/23 12:35 Completed Pending at discharge Category Date Time Status CV. echo complete* [id number] Routine Ultrasound 06/02/23 14:46 Taken Laboratory Results WBC 6.63 10^3/uL (3.29-11.43) 06/03/23 04:46 RBC 4.46 10^6/uL (3.85-5.65) 06/03/23 04:46 Hgb 14.80 g/dL (11.27-16.99) 06/03/23 04:46 Hct 43.8 % (37-53) 06/03/23 04:46 MCV 98.2 fl (82-101) 06/03/23 04:46 MCH 33.2 pg (27-33) H 06/03/23 04:46 MCHC 33.8 g/dL (30-55) 06/03/23 04:46 RDW 12.8 % (12.1-15.1) 06/03/23 04:46 Plt Count 198 10^3/cmm (157-399) 06/03/23 04:46 MPV 8.3 fL (7.4-10.4) 06/03/23 04:46 Neut % (Auto) 45.5 % 06/03/23 04:46 Lymph % (Auto) 39.7 % 06/03/23 04:46 [place] % (Auto) 11.3 % 06/03/23 04:46 Eos % (Auto) 2.4 % 06/03/23 04:46 Baso % (Auto) 0.9 % 06/03/23 04:46 Neut # (Auto) 3.02 10^3/uL (1.8-7.7) 06/03/23 04:46 Lymph # (Auto) 2.6 10^3/uL (0.8-4.8) 06/03/23 04:46 [place] # (Auto) 0.8 10^3/uL (0.2-0.9) 06/03/23 04:46 Eos # (Auto) 0.2 10^3/uL (0.0-0.8) 06/03/23 04:46 Baso # (Auto) 0.1 10^3/uL (0.0-0.1) 06/03/23 04:46 Nucleated RBC % (auto) 0 % 06/03/23 04:46 Nucleated RBCs # 0.0 /100WBC 06/03/23 04:46 D-Dimer 0.53 ug/mLFEU (0-0.59) 06/02/23 12:42 Sodium 136 mmol/L (136-145) 06/03/23 04:46 Potassium 4.0 mmol/L (3.5-5.1) 06/03/23 04:46 Chloride 103 mmol/L (98-107) 06/03/23 04:46 Carbon Dioxide 25 mmol/L (22-29) 06/03/23 04:46 Anion Gap 12.0 (5-19) 06/03/23 04:46 BUN 14 mg/dL (8-23) 06/03/23 04:46 Creatinine 0.7 mg/dL (0.7-1.2) 06/03/23 04:46 GFR Calculation Not Reportable 06/03/23 04:46 Glucose 93 mg/dL (65-115) 06/03/23 04:46 Estimat Average Glucose 105 06/02/23 12:42 Hemoglobin A1c 5.3 % (4.0-6.0) 06/02/23 12:42 Calculated Osmolality 282 mOsm/kg (285-295) L 06/03/23 04:46 Calcium 8.7 mg/dL (8.5-10.5) 06/03/23 04:46 Phosphorus 2.9 mg/dL (2.5-4.5) 06/03/23 04:46 Magnesium 2.3 mg/dL (1.7-2.3) 06/03/23 04:46 Total Bilirubin 0.2 mg/dL (0.15-1.2) 06/02/23 12:42 AST 24 U/L (0-40) 06/02/23 12:42 ALT 19 U/L (0-41) 06/02/23 12:42 Alkaline Phosphatase 132 U/L (40-130) H 06/02/23 12:42 C-Reactive Protein 3.0 mg/L (0.0-4.9) 06/03/23 04:46 NT-Pro-B Natriuret Pep 740 pg/mL (0-450) H 06/02/23 12:42 Total Protein 7.2 g/dL (6.6-8.7) 06/02/23 12:42 Albumin 4.6 g/dL (3.5-5.2) 06/02/23 12:42 Globulin 2.6 g/dL (1.3-4.6) 06/02/23 12:42 Vitamin B12 776 pg/mL (232-1245) 06/02/23 12:42 TSH 1.62 uIU/mL (0.27-4.20) 06/02/23 12:42 Vitals Last Vital Signs Temp 98.0 F 06/03/23 07:43 Pulse 86 06/03/23 07:43 Resp 21 H 06/03/23 07:43 BP 119/68 06/03/23 07:43 Pulse Ox 97 06/03/23 07:43 O2 Del Method Nasal Cannula 06/03/23 07:43 Discharge Plan Discharge Patient Disposition: Home Condition: Stable Prescriptions: New aspirin 325 mg tablet 325 mg PO DAILY Qty: 90 2RF metoprolol tartrate 25 mg tablet 12.5 mg PO BID Qty: 60 3RF Continued phenytoin sodium extended [Dilantin Extended] 100 mg capsule 100 mg PO BID vitamin B complex [B Complex-Vitamin B12] Tablet 1 tab PO DAILY ascorbate calcium (vitamin C) 500 mg tablet 500 mg PO QAM flaxseed oil 1,000 mg capsule 1,000 mg PO QAM Rx Instructions: administer with a meal selenium 100 mcg tablet 100 mcg PO QAM cholecalciferol (vitamin D3) 10 mcg (400 unit) capsule 10 mcg PO QAM melatonin 5 mg Tablet 5 mg PO QPM omega-3 fatty acids 1,000 mg Capsule 1,000 mg PO QAM Discharge Orders: Discharge Order (Routine); Ordered 06/03/23 Ordered By: Nataliia Miles Referrals: Darell Jackson MD [Primary Care Provider] - 06/10/23 8:30 am Discharge Diet: Cardiac Discharge Activity: Increase activity as tolerated Patient Instructions: Metoprolol (By mouth) (Lopressor, Toprol XL), A-fib (Atrial Fibrillation) (DC), Opioid Safety Discharge Attestations Time Spent in Discharge Care*: greater than 30 min Quality Metrics Clinical Quality Measures [ No reported AMI, CVA or VTE this stay] Coding Level of Care Code Acute Code for Chg Fwd Diagnoses Atrial fibrillation, new onset I48.91 Atrial fibrillation with rapid ventricular response I48.91
[2023-06-03] MEDS: sennosides-docusate Tablet 1 TAB PO (08:38)
--- NOTE | 2023-06-03 09:45 | PC.CHAP ---
Pastoral Care Encounter/Spiritual Assessment Type of Contact [] Declined set illustrator visit [] Patient/Family/Request visit [] Outpatient visit [] Follow-up visit [] Physician referral [] Code/Alert [x] Routine visit [] Staff referral [] Actively dying [] Patient sleeping [] Family support [] [] Out of room [] Palliative care [] [] Receiving care in room [] Pre-surgical visit [] Trauma [] Long length of stay [] ICU visit [] Other: Relational/Emotional Strength [] Patient feels connected with others/family/visitors/staff [] Distress [] Loneliness/isolation [] Abandonment Spirituality of Patient [] Person of Marycarmen [] Attends Mormonism of their Marycarmen [] Believes in Prayer [] Reads Bible or Episcopal materials [x] There are Spiritual issues to be addressed Business Support Specialist Interventions [] Prayer [] Active listening [] Non-anxious presence [] Spiritual/emotional support [] Crisis/trauma care [] Spiritual counseling [] Bereavement support [] Provided bereavement packet [] Provided Bible/devotional materials [] Provided toy/stuffed animal, coloring book to patient or family member [] Provided Communion [] Anointing/Enola [] Salvation [] Completed spiritual assessment [] Other: Impact on Illness or Injury [] Angry [] Fearful [] Anxious [] Often cries [] Exhaustion [] Unable to work [] Unable to attend religion [] Unable to walk/stand [] Unable to read [] Unable to drive [] Unable to eat/drink [] Unable to sleep [] Unable to be with family [] Patient intubated [] Other: Summary patient refused prayer, told him would pray for him. Time spent with patient 10 min
== END 2023-06-03 09:48 | disposition home or self-care (01) | DRG 310 ==
LOC: ER 13:07 → CSU 13:22
PROVIDERS: Admitting Provider Internal Medicine; Emergency Provider Family Medicine; PCP Family Medicine; Visit Provider Internal Medicine
DX: I48.91 Unspecified atrial fibrillation (principal)
CPT/HCPCS: 36415; 71045; 80048; 80053; 82607; 83036; 83735; 83880; 84100; 84443; 85025; 85378; 86140; 93005; 93306; 96372; 96374; 99285; J1650; J3490

== ENCOUNTER 2023-07-02 00:45 | Emergency (ER) | payer MEDICARE, SELFPAY ==
--- NOTE | 2023-07-02 00:49 | XRR_ITS ---
PROCEDURE INFORMATION: Exam: XR Chest Exam date and time: 07/02/2023 1:31 AM Age: 83 years old Clinical indication: Tachypnea; Additional info: Afib TECHNIQUE: Imaging protocol: Radiologic exam of the chest. Views: 1 view. COMPARISON: CR XR chest 1V portable [id number] 06/02/2023 12:38 PM FINDINGS: Lungs: Unremarkable. No consolidation. Pleural spaces: Unremarkable. No pleural effusion. No pneumothorax. Heart/Mediastinum: Unremarkable. No cardiomegaly. Bones/joints: Unremarkable. XR/XR chest 1V portable [id number] IMPRESSION: No acute findings.
--- NOTE | 2023-07-02 00:50 | ECG_ITS ---
[facility] Test Date: 2023-07-02 Pat Name: Jesus Avilez Department: Room: Gender: Male Running Instructor: : 1940 Requested By: Jorge Cao Order Number: [id number] Crawford MD: Naga Celis M.D. Measurements Intervals [place] Rate: 100 P: 0 [place]: 0 QRS: 16 QRSD: 88 T: 83 QT: 304 QTc: 392 Interpretive Statements ATRIAL FIBRILLATION WITH RAPID VENTRICULAR RESPONSE LOW QRS VOLTAGE IN PRECORDIAL LEADS [QRS DEFLECTION < 1.0 mV IN CHEST LEADS] NONSPECIFIC T-WAVE ABNORMALITY Compared to ECG 06/02/2023 13:31:26 T-wave abnormality now present Sinus rhythm no longer present Electronically Signed On 07-02-2023 6:23:12 CDT by Naga Celis M.D. [id number]
[2023-07-02 00:52] VITALS: BP 157/90; PULSE 122; RESP 16; TEMP 36.6; O2SAT 97; BMI 24.7
[2023-07-02] MEDS: dilTIAZem 5 mg/mL SDV 5 mL 10 MG IVP (01:09)
--- NOTE | 2023-07-02 01:09 | ED_ITS ---
HPI - Arrhythmia/Palpitations General: Chief Complaint: Arrhythmia/Palpitations Stated Complaint: Heart Beat Fast Time Seen by Provider: 07/02/23 01:02 Source: patient Mode of arrival: ambulatory Limitations: no limitations History of Present Illness: 83-year-old male states that he was recently diagnosed with A-fib couple weeks ago. He states he is on metoprolol 12.5 twice daily states over the last 2 nights he had some palpitations at night states that he fell like his heart was racing his heart rate here is 105. He denies any chest pain denies any shortness of breath denies any worsening improving factors. Associated symptoms: Deny nausea or vomiting Review of Systems Const: Denies: fever(s), chills, body aches or change in appetite Eyes: Denies: blurry vision or eye discomfort ENMT: Denies: throat pain or dental pain Card: Reports: palpitations and irregular heart rhythm; Denies: chest pain Resp: Denies: dyspnea GI: Denies: abdominal pain, nausea, vomiting or diarrhea : Denies: dysuria Musc: Denies: neck pain or back pain Skin/Breast: Denies: rash Neuro: Denies: headache(s) PFSH ED PFSH: Medical History Atrial fibrillation with rapid ventricular response Atrial fibrillation, new onset Lower urinary tract symptoms (LUTS) Urethral stricture Surgical History H/O arthroscopy of knee left H/O rotator cuff surgery left History of carpal tunnel release left Hx of tonsillectomy Family History Father , at age 63 Cancer tongue Mother , at age 64 Lung disease Social History Smoking and tobacco/nicotine status: never used tobacco/nicotine Alcohol intake: current Alcohol intake frequency: 0-2 Drinks per Day Marital status: Current occupational status: retired Physical Exam Const: COMMON NORMALS: no acute distress, patient oriented x3 and healthy appearing HENMT: COMMON NORMALS: normocephalic and atraumatic HEAD & SCALP: normocephalic and atraumatic Neck/C-Spine: COMMON NORMALS: full ROM and supple Chest: COMMONS NORMALS: normal inspection of the chest and normal palpation of entire chest wall Resp: COMMON NORMALS: normal respiratory effort, No retractions, No use of accessory muscles and clear to auscultation bilaterally AUSCULTATION: clear to auscultation bilaterally Cardio: COMMON NORMALS: No murmurs present (Cardio) RATE: tachycardic RHYTHM: abnormal rhythm irregularly irregular GI: INSPECTION: Yes normal to inspection Extremity: COMMON NORMALS: normal to inspection and full ROM Neuro: COMMON NORMALS: patient oriented x3, moves all extremities and no focal motor deficits Psych: COMMON NORMALS: mental status grossly normal, Normal thought process present and cooperative THOUGHT PROCESS: Normal thought process present Skin: COMMON NORMALS: no rashes or lesions noted and no wounds GENERAL SKIN EXAM: no rashes or lesions noted Course Vital Signs: Vital signs: Vital Signs Temperature 97.9 F 07/02/23 00:52 Pulse Rate 122 H 07/02/23 00:52 Respiratory Rate 16 07/02/23 00:52 Blood Pressure 157/90 07/02/23 00:52 Pulse Oximetry 97 07/02/23 00:52 Oxygen Delivery Me thod Room Air 07/02/23 00:52 MDM - Arrhythmia/Palpitations Medical Decision Making Patient presents with A-fib with RVR his heart rates improved with Cardizem he feels much improved blood work here is normal we will increase his metoprolol dose to 25 twice daily he is to follow-up with his PCP and clerical support return if worsening he understands agrees to plan Medical Records I reviewed the patient's medical records. Lab Data I reviewed the patient's lab results. 07/02/23 01:05 07/02/23 01:05 Laboratory Results WBC 10.08 10^3/uL (3.29-11.43) 07/02/23 01:05 RBC 4.73 10^6/uL (3.85-5.65) 07/02/23 01:05 Hgb 15.60 g/dL (11.27-16.99) 07/02/23 01:05 Hct 45.9 % (37-53) 07/02/23 01:05 MCV 97.0 fl (82-101) 07/02/23 01:05 MCH 33.0 pg (27-33) 07/02/23 01:05 MCHC 34.0 g/dL (30-55) 07/02/23 01:05 RDW 12.6 % (12.1-15.1) 07/02/23 01:05 Plt Count 223 10^3/cmm (157-399) 07/02/23 01:05 MPV 8.6 fL (7.4-10.4) 07/02/23 01:05 Neut % (Auto) 50.3 % 07/02/23 01:05 Lymph % (Auto) 36.5 % 07/02/23 01:05 [place] % (Auto) 9.4 % 07/02/23 01:05 Eos % (Auto) 2.6 % 07/02/23 01:05 Baso % (Auto) 0.9 % 07/02/23 01:05 Neut # (Auto) 5.07 10^3/uL (1.8-7.7) 07/02/23 01:05 Lymph # (Auto) 3.7 10^3/uL (0.8-4.8) 07/02/23 01:05 [place] # (Auto) 1.0 10^3/uL (0.2-0.9) H 07/02/23 01:05 Eos # (Auto) 0.3 10^3/uL (0.0-0.8) 07/02/23 01:05 Baso # (Auto) 0.1 10^3/uL (0.0-0.1) 07/02/23 01:05 Nucleated RBC % (auto) 0 % 07/02/23 01:05 Nucleated RBCs # 0.0 /100WBC 07/02/23 01:05 PT 13.30 SECONDS (12.1-14.9) 07/02/23 01:05 INR 0.98 (0.8-1.2) 07/02/23 01:05 Sodium 137 mmol/L (136-145) 07/02/23 01:05 Potassium 3.9 mmol/L (3.5-5.1) 07/02/23 01:05 Chloride 101 mmol/L (98-107) 07/02/23 01:05 Carbon Dioxide 26 mmol/L (22-29) 07/02/23 01:05 Anion Gap 13.9 (5-19) 07/02/23 01:05 BUN 22 mg/dL (8-23) 07/02/23 01:05 Creatinine 0.8 mg/dL (0.7-1.2) 07/02/23 01:05 GFR Calculation Not Reportable 07/02/23 01:05 Glucose 105 mg/dL (65-115) 07/02/23 01:05 Calculated Osmolality 288 mOsm/kg (285-295) 07/02/23 01:05 Calcium 9.7 mg/dL (8.5-10.5) 07/02/23 01:05 Total Bilirubin 0.2 mg/dL (0.15-1.2) 07/02/23 01:05 AST 26 U/L (0-40) 07/02/23 01:05 ALT 24 U/L (0-41) 07/02/23 01:05 Alkaline Phosphatase 132 U/L (40-130) H 07/02/23 01:05 Total Protein 7.3 g/dL (6.6-8.7) 07/02/23 01:05 Albumin 4.5 g/dL (3.5-5.2) 07/02/23 01:05 Globulin 2.8 g/dL (1.3-4.6) 07/02/23 01:05 XR interpretation done by ED provider, pending radiology final review ED provider radiology interpretation(s): cxr: no acute abnormality EKG Data EKG 1: I personally reviewed and interpreted this EKG as follows: EKG interpretation date: 07/02/23 EKG interpretation time: 00:49 Interpretation: afib with rvr hr [address] or t wave abnormalities qrs 88 qtc 361 Discharge Plan Discharge Patient Disposition: Home Clinical Impression: Atrial fibrillation Condition: Stable Prescriptions: Changed metoprolol tartrate 25 mg tablet 25 mg PO BID Qty: 60 3RF No Action phenytoin sodium extended [Dilantin Extended] 100 mg capsule 100 mg PO BID vitamin B complex [B Complex-Vitamin B12] Tablet 1 tab PO DAILY ascorbate calcium (vitamin C) 500 mg tablet 500 mg PO QAM flaxseed oil 1,000 mg capsule 1,000 mg PO QAM Rx Instructions: administer with a meal selenium 100 mcg tablet 100 mcg PO QAM cholecalciferol (vitamin D3) 10 mcg (400 unit) capsule 10 mcg PO QAM melatonin 5 mg Tablet 5 mg PO QPM omega-3 fatty acids 1,000 mg Capsule 1,000 mg PO QAM aspirin 325 mg tablet 325 mg PO DAILY Qty: 90 2RF Discharge Orders: Discharge ED (Routine); Ordered 07/02/23 Ordered By: Jorge Cao Referrals: Darell Jackson MD [Primary Care Provider] - 1-3 days Discharge Diet: Advance as tolerated Discharge Activity: Resume usual activity Patient Instructions: A-fib (Atrial Fibrillation) (ED) Coding Level of Care Code ED Press Hand for More Mallory
[2023-07-02 01:12] LABS: Basophils # 0.1 10^3/uL (0.0-0.1); Basophils % 0.9 %; Eosinophils # 0.3 10^3/uL (0.0-0.8); Eosinophils % 2.6 %; Hematocrit 45.9 % (37-53); Lymphocytes # 3.7 10^3/uL (0.8-4.8); Lymphocytes % 36.5 %; Mean Platelet Volume 8.6 fL (7.4-10.4); Monocytes % 9.4 %; Neutrophils # 5.07 10^3/uL (1.8-7.7); Neutrophils % 50.3 %; Nucleated Red Blood Cells % 0 %; Platelet Count 223 10^3/cmm (157-399); Red Blood Count 4.73 10^6/uL (3.85-5.65); Red Cell Distribution Width 12.6 % (12.1-15.1); White Blood Count 10.08 10^3/uL (3.29-11.43)
[2023-07-02 01:25] LABS: INR 0.98 (0.8-1.2)
[2023-07-02 01:31] LABS: Alanine Aminotransferase 24 U/L (0-41); Albumin Level 4.5 g/dL (3.5-5.2); Alkaline Phosphatase 132 U/L (40-130); Anion Gap 13.9 (5-19); Aspartate Amino Transferase 26 U/L (0-40); Blood Urea Nitrogen 22 mg/dL (8-23); Calcium 9.7 mg/dL (8.5-10.5); Carbon Dioxide 26 mmol/L (22-29); Chloride 101 mmol/L (98-107); Globulin 2.8 g/dL (1.3-4.6); Glucose 105 mg/dL (65-115); Osmolality Calculated 288 mOsm/kg (285-295); Potassium 3.9 mmol/L (3.5-5.1); Sodium 137 mmol/L (136-145); Total Bilirubin 0.2 mg/dL (0.15-1.2); Total Protein 7.3 g/dL (6.6-8.7)
[2023-07-02 01:38] VITALS: BP 106/67; PULSE 79; RESP 16; O2SAT 94
[2023-07-02 01:48] VITALS: BP 106/67; PULSE 79; RESP 16; TEMP 36.6; O2SAT 94
== END 2023-07-02 01:49 | disposition home or self-care (01) ==
PROVIDERS: Emergency Provider Emergency Medicine; PCP Family Medicine
DX: I48.91 Unspecified atrial fibrillation (principal); Z79.82 Long term (current) use of aspirin
CPT/HCPCS: 71045; 80053; 85025; 85610; 93005; 96374; 99285; J3490

== ENCOUNTER 2023-08-01 07:58 | Emergency (ER) | payer MEDICARE, SELFPAY ==
--- NOTE | 2023-08-01 08:07 | ECG_ITS ---
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 Measurements Intervals [place] Rate: 121 P: 0 NE: 0 QRS: -5 QRSD: 96 T: 76 QT: 285 QTc: 405 Interpretive Statements ATRIAL FIBRILLATION WITH RAPID VENTRICULAR RESPONSE LOW QRS VOLTAGE IN PRECORDIAL LEADS [QRS DEFLECTION < 1.0 mV IN CHEST LEADS] NONSPECIFIC T-WAVE ABNORMALITY ABNORMAL RHYTHM ECG Compared to ECG 07/02/2023 00:49:39 No significant changes Electronically Signed On 08-02-2023 21:31:22 NEEDLE LOOM SETTER by Madina Phelps M.D. [id number]
[2023-08-01 08:09] VITALS: BP 121/73; PULSE 94; RESP 18; TEMP 36.8; O2SAT 95; BMI 24.3
[2023-08-01 08:14] VITALS: BP 121/73; PULSE 86; RESP 18; O2SAT 95
[2023-08-01 08:28] LABS: Basophils # 0.1 10^3/uL (0.0-0.1); Basophils % 0.9 %; Eosinophils # 0.2 10^3/uL (0.0-0.8); Eosinophils % 2.1 %; Hematocrit 43.8 % (37-53); Lymphocytes # 2.1 10^3/uL (0.8-4.8); Lymphocytes % 26.5 %; Mean Corpuscular HGB Conc 33.8 g/dL (30-55); Mean Corpuscular Hemoglobin 33.1 pg (27-33); Mean Platelet Volume 8.8 fL (7.4-10.4); Monocytes # 0.7 10^3/uL (0.2-0.9); Monocytes % 9.5 %; Neutrophils # 4.74 10^3/uL (1.8-7.7); Neutrophils % 60.9 %; Nucleated Red Blood Cells % 0 %; Platelet Count 207 10^3/cmm (157-399); Red Blood Count 4.47 10^6/uL (3.85-5.65); Red Cell Distribution Width 12.5 % (12.1-15.1); White Blood Count 7.78 10^3/uL (3.29-11.43)
[2023-08-01 08:40] LABS: Alanine Aminotransferase 14 U/L (0-41); Alkaline Phosphatase 118 U/L (40-130); Anion Gap 15.4 (5-19); Aspartate Amino Transferase 20 U/L (0-40); Blood Urea Nitrogen 20 mg/dL (8-23); Carbon Dioxide 24 mmol/L (22-29); Chloride 104 mmol/L (98-107); Creatinine Clr Calc Pharmacy 71.7731; Globulin 2.4 g/dL (1.3-4.6); Glucose 129 mg/dL (65-115); Osmolality Calculated 292 mOsm/kg (285-295); Potassium 4.4 mmol/L (3.5-5.1); Sodium 139 mmol/L (136-145); Total Bilirubin 0.2 mg/dL (0.15-1.2); Total Protein 6.4 g/dL (6.6-8.7)
[2023-08-01 09:45] VITALS: BP 91/61; PULSE 84; RESP 18; O2SAT 100
--- NOTE | 2023-08-01 09:45 | ED_ITS ---
HPI - Arrhythmia/Palpitations 2 General: Chief Complaint: Arrhythmia/Palpitations Stated Complaint: A-fib Time Seen by Provider: 08/01/23 08:06 Source: patient Mode of arrival: ambulatory History of Present Illness: 83-year-old male presents emergency room complaining of rapid heart rate. He has a known history of atrial fibrillation he says this morning is that his heart rate up in the 150s and 60s at times. On arrival here he is little over 100 he is asymptomatic at this time he has no chest pain. He normally takes metoprolol 25 twice daily he did take his morning dose of metoprolol today. MD complaint: rapid heart beat and heart racing Onset (ago): minute(s) Severity: mild Arrhythmia history: atrial fibrillation Associated symptoms: Deny anxiety, cough, diaphoresis, muscle cramps, nausea, paresthesias, pre-syncope, sense of impending doom, short of breath, syncope or vomiting Review of Systems 2 Const: Denies: diaphoresis Card: Reports: palpitations and irregular heart rhythm; Denies: chest pain, edema, syncope or pre-syncope Resp: Denies: dyspnea GI: Denies: nausea or vomiting : Denies: dysuria, urinary frequency or urinary urgency Musc: Denies: muscle cramps Skin/Breast: Denies: rash Psych: Denies: anxiety PFSH ED 2 PFSH: Medical History Atrial fibrillation with rapid ventricular response Atrial fibrillation, new onset Urethral stricture Lower urinary tract symptoms (LUTS) Surgical History Hx of tonsillectomy H/O arthroscopy of knee left History of carpal tunnel release left H/O rotator cuff surgery left Family History Father , at age 63 Cancer tongue Mother , at age 64 Lung disease Social History Smoking and tobacco/nicotine status: never used tobacco/nicotine Alcohol intake: current Alcohol intake frequency: 0-2 Drinks per Day Marital status: Current occupational status: retired Physical Exam 2 Const: COMMON NORMALS: no acute distress GENERAL APPEARANCE: cooperative and comfortable ORIENTATION/CONSCIOUSNESS: Yes awake, Yes oriented to person, Yes oriented to place and Yes oriented to time HENMT: COMMON NORMALS: normocephalic, atraumatic and hearing grossly normal bilaterally HEAD & SCALP: normocephalic and atraumatic Resp: COMMON NORMALS: normal respiratory effort, No retractions, No use of accessory muscles and clear to auscultation bilaterally AUSCULTATION: clear to auscultation bilaterally Cardio: COMMON NORMALS: regular rate, regular rhythm and No murmurs present (Cardio) RATE: regular rate RHYTHM: regular rhythm GI: COMMON NORMALS: Soft to palpation and No hepatosplenomegaly present A USCULTATION: Yes normoactive bowel sounds PALPATION: Yes Soft to palpation, No Tenderness to palpation present (GI), No Guarding due to palpation present (GI) and Yes No hepatosplenomegaly present Extremity: COMMON NORMALS: normal to inspection, capillary refill normal, no clubbing, cyanosis or edema, no calf tenderness and no pedal edema Neuro: SENSORIUM/ORIENTATION: Yes oriented to person, Yes oriented to place and Yes oriented to time Skin: COMMON NORMALS: no rashes or lesions noted GENERAL SKIN EXAM: no rashes or lesions noted Course 2 Vital Signs: Vital signs: Vital Signs Temperature 98.2 F 08/01/23 08:09 Pulse Rate 77 08/01/23 12:18 Respiratory Rate 16 08/01/23 12:18 Blood Pressure 117/68 08/01/23 12:18 Pulse Oximetry 95 08/01/23 12:18 Oxygen Delivery Me thod Room Air 08/01/23 08:14 MDM - Arrhythmia/Palpitations Medical Decision Making Patient monitored for period of time has not had any further tachyarrhythmias. We will increase his metoprolol to 50 twice daily and recheck his heart rate with his primary care next week return if has further problems Medical Records I reviewed the patient's medical records. Lab Data I reviewed the patient's lab results. 08/01/23 08:13 08/01/23 08:13 Laboratory Results WBC 7.78 10^3/uL (3.29-11.43) 08/01/23 08:13 RBC 4.47 10^6/uL (3.85-5.65) 08/01/23 08:13 Hgb 14.80 g/dL (11.27-16.99) 08/01/23 08:13 Hct 43.8 % (37-53) 08/01/23 08:13 MCV 98.0 fl (82-101) 08/01/23 08:13 MCH 33.1 pg (27-33) H 08/01/23 08:13 MCHC 33.8 g/dL (30-55) 08/01/23 08:13 RDW 12.5 % (12.1-15.1) 08/01/23 08:13 Plt Count 207 10^3/cmm (157-399) 08/01/23 08:13 MPV 8.8 fL (7.4-10.4) 08/01/23 08:13 Neut % (Auto) 60.9 % 08/01/23 08:13 Lymph % (Auto) 26.5 % 08/01/23 08:13 [place] % (Auto) 9.5 % 08/01/23 08:13 Eos % (Auto) 2.1 % 08/01/23 08:13 Baso % (Auto) 0.9 % 08/01/23 08:13 Neut # (Auto) 4.74 10^3/uL (1.8-7.7) 08/01/23 08:13 Lymph # (Auto) 2.1 10^3/uL (0.8-4.8) 08/01/23 08:13 [place] # (Auto) 0.7 10^3/uL (0.2-0.9) 08/01/23 08:13 Eos # (Auto) 0.2 10^3/uL (0.0-0.8) 08/01/23 08:13 Baso # (Auto) 0.1 10^3/uL (0.0-0.1) 08/01/23 08:13 Nucleated RBC % (auto) 0 % 08/01/23 08:13 Nucleated RBCs # 0.0 /100WBC 08/01/23 08:13 Sodium 139 mmol/L (136-145) 08/01/23 08:13 Potassium 4.4 mmol/L (3.5-5.1) 08/01/23 08:13 Chloride 104 mmol/L (98-107) 08/01/23 08:13 Carbon Dioxide 24 mmol/L (22-29) 08/01/23 08:13 Anion Gap 15.4 (5-19) 08/01/23 08:13 BUN 20 mg/dL (8-23) 08/01/23 08:13 Creatinine 0.8 mg/dL (0.7-1.2) 08/01/23 08:13 GFR Calculation Not Reportable 08/01/23 08:13 Glucose 129 mg/dL (65-115) H 08/01/23 08:13 Calculated Osmolality 292 mOsm/kg (285-295) 08/01/23 08:13 Calcium 9.0 mg/dL (8.5-10.5) 08/01/23 08:13 Total Bilirubin 0.2 mg/dL (0.15-1.2) 08/01/23 08:13 AST 20 U/L (0-40) 08/01/23 08:13 ALT 14 U/L (0-41) 08/01/23 08:13 Alkaline Phosphatase 118 U/L (40-130) 08/01/23 08:13 Total Protein 6.4 g/dL (6.6-8.7) L 08/01/23 08:13 Albumin 4.0 g/dL (3.5-5.2) 08/01/23 08:13 Globulin 2.4 g/dL (1.3-4.6) 08/01/23 08:13 No radiology studies performed this visit Discharge Plan Discharge Patient Disposition: Home Clinical Impression: Atrial fibrillation Condition: Stable Prescriptions: Changed metoprolol tartrate 25 mg tablet 50 mg PO BID Qty: 120 3RF No Action phenytoin sodium extended [Dilantin Extended] 100 mg capsule 100 mg PO BID vitamin B complex [B Complex-Vitamin B12] Tablet 1 tab PO DAILY ascorbate calcium (vitamin C) 500 mg tablet 500 mg PO QAM flaxseed oil 1,000 mg capsule 1,000 mg PO QAM Rx Instructions: administer with a meal selenium 100 mcg tablet 100 mcg PO QAM cholecalciferol (vitamin D3) 10 mcg (400 unit) capsule 10 mcg PO QAM melatonin 5 mg Tablet 5 mg PO QPM omega-3 fatty acids 1,000 mg Capsule 1,000 mg PO QAM aspirin 325 mg tablet 325 mg PO DAILY Qty: 90 2RF Discharge Orders: Discharge ED (Routine); Ordered 08/01/23 Ordered By: Brett Engel Referrals: Darell Jackson MD [Primary Care Provider] - Discharge Diet: As Directed Discharge Activity: Limit activity as instructed Patient Instructions: Opioid Safety, Pain Management Activity Restrictions/Additional Instructions: Thank you for choosing [facility] for your healthcare needs today. Please realize this is an emergency room and that we are providing you with a medical screening exam and this may not be complete and all inclusive of all the testing and or work up that you may need to determine your ailment or severity of your illness. It is very important that you follow up as instructed or that you return to the Emergency Department should you have concerns or if your condition changes or worsens in any way. You are seen today for intermittent rapid heart rate your rate was well controlled while you are here recommend you increase your metoprolol to 50 mg twice daily and follow-up with Dr. Jackson next week return if you have further problems. 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
[2023-08-01 12:18] VITALS: BP 117/68; PULSE 77; RESP 16; O2SAT 95
== END 2023-08-01 12:19 | disposition home or self-care (01) ==
PROVIDERS: Emergency Provider Family Medicine; PCP Family Medicine
DX: I48.91 Unspecified atrial fibrillation (principal); Z79.82 Long term (current) use of aspirin
CPT/HCPCS: 36415; 80053; 85025; 93005; 99284

== ENCOUNTER 2023-08-22 22:09 | Emergency (ER) | payer MEDICARE, SELFPAY ==
[2023-08-22 22:12] VITALS: BP 117/82; PULSE 133; RESP 18; TEMP 36.3; O2SAT 95
--- NOTE | 2023-08-22 22:14 | ECG_ITS ---
[facility] Test Date: 2023-08-22 Pat Name: Jesus Avilez Department: Room: Gender: Male Vp Production: : 1940 Requested By: Santos Ruiz Order Number: [id number] Crawford MD: Naga Celis M.D. Measurements Intervals [place] Rate: 124 P: 0 [place]: 0 QRS: -2 QRSD: 87 T: 79 QT: 273 QTc: 392 Interpretive Statements ATRIAL FIBRILLATION WITH RAPID VENTRICULAR RESPONSE LOW QRS VOLTAGE IN PRECORDIAL LEADS [QRS DEFLECTION < 1.0 mV IN CHEST LEADS] NONSPECIFIC ST & T-WAVE ABNORMALITY ABNORMAL RHYTHM ECG Compared to ECG 08/01/2023 08:06:01 No significant changes Electronically Signed On 08-23-2023 10:00:57 RADIO BOARD OPERATOR ANNOUNCER by Naga Celis M.D. [email or web address]
--- NOTE | 2023-08-22 22:43 | XRR_ITS ---
PROCEDURE INFORMATION: Exam: XR Chest Exam date and time: 08/22/2023 11:17 PM Age: 83 years old Clinical indication: Patient HX: C/O palpitations TECHNIQUE: Imaging protocol: Radiologic exam of the chest. Views: 1 view. COMPARISON: CR XR chest 1V portable [id number] 07/02/2023 1:31 AM FINDINGS: Lungs: No consolidation. Pleural spaces: No large pleural effusion. No pneumothorax. Heart/Mediastinum: Unremarkable cardiomediastinal silhouette. Bones/joints: No acute abnormality. XR/XR chest 1V portable [id number] IMPRESSION: No acute findings.
[2023-08-22] MEDS: dilTIAZem 5 mg/mL SDV 5 mL 15 MG IVP (22:53)
[2023-08-22 22:54] LABS: Basophils % 0.4 %; Eosinophils % 0.1 %; Hematocrit 42.6 % (37-53); Lymphocytes # 1.6 10^3/uL (0.8-4.8); Lymphocytes % 20.9 %; Mean Corpuscular Hemoglobin 33.4 pg (27-33); Mean Corpuscular Volume 95.5 fl (82-101); Mean Platelet Volume 8.8 fL (7.4-10.4); Monocytes # 0.8 10^3/uL (0.2-0.9); Neutrophils # 5.14 10^3/uL (1.8-7.7); Neutrophils % 68.5 %; Nucleated Red Blood Cells % 0 %; Platelet Count 165 10^3/cmm (157-399); Red Blood Count 4.46 10^6/uL (3.85-5.65); Red Cell Distribution Width 12.5 % (12.1-15.1); White Blood Count 7.51 10^3/uL (3.29-11.43)
[2023-08-22] MEDS: sodium chloride 0.9% 1,000 ML 999 ML IV (22:54)
--- NOTE | 2023-08-22 22:58 | ED_ITS ---
HPI - Arrhythmia/Palpitations 2 General: Chief Complaint: Arrhythmia/Palpitations Stated Complaint: Iregular Heart Beat Time Seen by Provider: 08/22/23 22:20 History of Present Illness: 83-year-old male with a history of atria l fibrillation. He presents with an increased heart rate, and some palpitations. He checks his heart rate daily, sometimes multiple times a day. He noticed his heart rate in the 150s. This is despite his normal use of metoprolol. He came in with an increased rate. He has no chest pain. No significant shortness of breath. He was placed on steroids for an upper respiratory illness, and had his first dose today which she believes is the culprit. Associated symptoms: Deny nausea or vomiting Review of Systems 2 Const: Denies: fever(s), chills or body aches Eyes: Denies: change in vision Card: Reports: palpitations; Denies: chest pain Resp: Denies: dyspnea, productive cough, non-productive cough or wheezing GI: Denies: abdominal pain, nausea, vomiting, diarrhea or hematochezia Skin/Breast: Denies: rash Neuro: Denies: headache(s), weakness in extremities, dizziness or confusion PFSH ED 2 PFSH: Medical History Atrial fibrillation with rapid ventricular response Atrial fibrillation, new onset Urethral stricture Lower urinary tract symptoms (LUTS) Surgical History Hx of tonsillectomy H/O arthroscopy of knee left History of carpal tunnel release left H/O rotator cuff surgery left Family History Father , at age 63 Cancer tongue Mother , at age 64 Lung disease Social History Smoking and tobacco/nicotine status: never used tobacco/nicotine Alcohol intake: current Alcohol intake frequency: 0-2 Drinks per Day Marital status: Current occupational status: retired Physical Exam 2 Const: COMMON NORMALS: no acute distress GENERAL APPEARANCE: cooperative; not ill appearing and not frail appearing HENMT: COMMON NORMALS: normocephalic, atraumatic and Normal external nose present HEAD & SCALP: normocephalic and atraumatic FACE & SINUS: normal facial exam and face symmetric NOSE: Normal external nose present Eye: COMMON NORMALS: Equal, round and reactive pupils present and EOMs intact bilaterally PUPIL: Yes Equal, round and reactive pupils present Neck/C-Spine: GENERAL: Yes trachea midline Chest: CHEST: Yes Symmetrical chest wall rise Resp: COMMON NORMALS: normal respiratory effort, No retractions, No use of accessory muscles and clear to auscultation bilaterally AUSCULTATION: clear to auscultation bilaterally Cardio: RATE: tachycardic RHYTHM: abnormal rhythm irregularly irregular GI: COMMON NORMALS: Normal to inspection, nondistended, normoactive bowel sounds present Extremity: COMMON NORMALS: no pedal edema Neuro: [place] COMA SCALE: document GCS findings [place] coma scale eye opening: Spontaneous [place] coma scale verbal response: Orientated [place] coma scale motor response: [place] commands [place] coma scale total score: 15 S ENSORY EXAM: Yes extremities (intact) Psych: COMMON NORMALS: speech normal SPEECH: Yes normal speech Skin: COMMON NORMALS: no rashes or lesions noted GENERAL SKIN EXAM: no rashes or lesions noted Course 2 Vital Signs: Vital signs: Vital Signs Temperature 97.4 F L 08/22/23 22:12 Pulse Rate 82 08/22/23 23:47 Respiratory Rate 14 08/22/23 23:47 Blood Pressure 121/72 08/22/23 23:47 Pulse Oximetry 95 08/22/23 23:47 Oxygen Delivery Me thod Room Air 08/22/23 22:12 MDM - Arrhythmia/Palpitations Medical Decision Making 83-year-old gentleman with atrial fibrillation. He presents in mild rapid ventricular response. Heart rate on EKG is in the 120s. Normal axis. No ST wave changes. He is given a fluid bolus, as well as 15 mg of diltiazem bolus. Rate decreased to 70. Saturations 94% on room air. Blood pressure 100/50 respirations 18. CBC is normal. Sodium is 132. Sugar is 142. Troponin and BNP are normal. Chest x-ray is nonacute. Rate is remained stable. He will be allowed discharge. To return for return of or worsening symptoms. Lab Data 08/22/23 22:26 08/22/23 22:26 Laboratory Results WBC 7.51 10^3/uL (3.29-11.43) 08/22/23 22: RBC 4.46 10^6/uL (3.85-5.65) 08/22/23 22: Hgb 14.90 g/dL (11.27-16.99) 08/22/23 22: Hct 42.6 % (37-53) 08/22/23 22: MCV 95.5 fl (82-101) 08/22/23 22: MCH 33.4 pg (27-33) H 08/22/23 22: MCHC 35.0 g/dL (30-55) 08/22/23: RDW 12.5 % (12.1-15.1) 08/22/23: Plt Count 165 10^3/cmm (157-399) 08/22/23: MPV 8.8 fL (7.4-10.4) 08/22/23 22: Neut % (Auto) 68.5 % 08/22/23 22: Lymph % (Auto) 20.9 % 08/22/23 22: [place] % (Auto) 10.0 % 08/22/23 22: Eos % (Auto) 0.1 % 08/22/23 22: Baso % (Auto) 0.4 % 08/22/23: Neut # (Auto) 5.14 10^3/uL (1.8-7.7) 08/22/23: Lymph # (Auto) 1.6 10^3/uL (0.8-4.8) 08/22/23: [place] # (Auto) 0.8 10^3/uL (0.2-0.9) 08/22/23 22: Eos # (Auto) 0.0 10^3/uL (0.0-0.8) 08/22/23: Baso # (Auto) 0.0 10^3/uL (0.0-0.1) 08/22/23: Nucleated RBC % (auto) 0 % 08/22/23: Nucleated RBCs # 0.0 /100WBC 08/22/23 22: Sodium 132 mmol/L (136-145) L 08/22/23 22:26 Potassium 3.8 mmol/L (3.5-5.1) 08/22/23 22:26 Chloride 97 mmol/L (98-107) L 08/22/23 22:26 Carbon Dioxide 23 mmol/L (22-29) 08/22/23 22:26 Anion Gap 15.8 (5-19) 08/22/23 22:26 BUN 17 mg/dL (8-23) 08/22/23 22:26 Creatinine 0.7 mg/dL (0.7-1.2) 08/22/23 22:26 GFR Calculation Not Reportable 08/22/23 22:26 Glucose 142 mg/dL (65-115) H 08/22/23 22:26 Calculated Osmolality 278 mOsm/kg (285-295) L 08/22/23 22:26 Calcium 9.0 mg/dL (8.5-10.5) 08/22/23 22: Magnesium 2.1 mg/dL (1.7-2.3) 08/22/23 22:26 Total Bilirubin 0.2 mg/dL (0.15-1.2) 08/22/23 22:26 AST 27 U/L (0-40) 08/22/23 22:26 ALT 21 U/L (0-41) 08/22/23 22:26 Alkaline Phosphatase 120 U/L (40-130) 08/22/23 22:26 Troponin T Baseline 11 ng/L (0-15) 08/22/23 22:26 NT-Pro-B Natriuret Pep 113 pg/mL (0-450) 08/22/23 22:26 Total Protein 6.6 g/dL (6.6-8.7) 08/22/23 22: Albumin 4.2 g/dL (3.5-5.2) 08/22/23 22: Globulin 2.4 g/dL (1.3-4.6) 08/22/23 22: TSH 1.28 uIU/mL (0.27-4.20) 08/22/23 22:26 Urine Color Yellow (Yellow) 08/22/23 23:44 Urine Appearance Clear (CLEAR) 08/22/23 23:44 Urine pH 7 (5-7) 08/22/23 23:44 Ur Specific [place] 1.005 (1.005-1.030) 08/22/23 23:44 Urine Protein Neg (Negative) 08/22/23 23:44 Urine Glucose (UA) Norm (Normal) 08/22/23 23:44 Urine Ketones Negative (Negative) 08/22/23 23:44 Urine Blood Neg (Negative) 08/22/23 23:44 Urine Nitrate Negative (Negative) 08/22/23 23:44 Urine Bilirubin Neg (Negative) 08/22/23 23:44 Urine Urobilinogen Norm mg/dL (Negative) 08/22/23 23:44 Ur Leukocyte Esterase Negative (Negative) 08/22/23 23:44 XR interpretation done by ED provider, pending radiology final review Discharge Plan Discharge Patient Disposition: Home Clinical Impression: Palpitations, Atrial fibrillation Condition: Stable Prescriptions: No Action phenytoin sodium extended [Dilantin Extended] 100 mg capsule 100 mg PO BID vitamin B complex [B Complex-Vitamin B12] Tablet 1 tab PO DAILY ascorbate calcium (vitamin C) 500 mg tablet 500 mg PO QAM flaxseed oil 1,000 mg capsule 1,000 mg PO QAM Rx Instructions: administer with a meal selenium 100 mcg tablet 100 mcg PO QAM cholecalciferol (vitamin D3) 10 mcg (400 unit) capsule 10 mcg PO QAM melatonin 5 mg Tablet 5 mg PO QPM omega-3 fatty acids 1,000 mg Capsule 1,000 mg PO QAM aspirin 325 mg tablet 325 mg PO DAILY Qty: 90 2RF metoprolol tartrate 25 mg tablet 50 mg PO BID Qty: 120 3RF Discharge Orders: Discharge ED (Routine); Ordered 08/23/23 Ordered By: Robbie Somers Referrals: Darell Jackson MD [Primary Care Provider] - 4-7 days Patient Instructions: A-fib (Atrial Fibrillation) (ED) Activity Restrictions/Additional Instructions: Return for any return of worrisome symptoms. Especially shortness of breath, chest discomfort, etc. Call your doctor next week. Let them know you were seen here, and may need a follow-up appointment. 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
[2023-08-22 23:27] LABS: Troponin(5th) Baseline 11 ng/L (0-15)
[2023-08-22 23:37] LABS: Alanine Aminotransferase 21 U/L (0-41); Albumin Level 4.2 g/dL (3.5-5.2); Alkaline Phosphatase 120 U/L (40-130); Anion Gap 15.8 (5-19); Aspartate Amino Transferase 27 U/L (0-40); Blood Urea Nitrogen 17 mg/dL (8-23); Carbon Dioxide 23 mmol/L (22-29); Chloride 97 mmol/L (98-107); Creatinine Clr Calc Pharmacy 71.7731; Globulin 2.4 g/dL (1.3-4.6); Glucose 142 mg/dL (65-115); Magnesium 2.1 mg/dL (1.7-2.3); NT Pro B Type Natriuretic Pept 113 pg/mL (0-450); Osmolality Calculated 278 mOsm/kg (285-295); Potassium 3.8 mmol/L (3.5-5.1); Sodium 132 mmol/L (136-145); Thyroid Stimulating Hormone 1.28 uIU/mL (0.27-4.20); Total Bilirubin 0.2 mg/dL (0.15-1.2); Total Protein 6.6 g/dL (6.6-8.7)
[2023-08-22 23:47] VITALS: BP 121/72; PULSE 82; RESP 14; O2SAT 95
[2023-08-22 23:47] LABS: Add Urine Microscopic? NO; Charge for UA Resulting for Rev
[2023-08-22 23:53] LABS: Bilirubin Urine Neg (Negative); Blood Urine Neg (Negative); Glucose Urine UA Norm (Normal); Ketones Urine Negative (Negative); Leukocyte Esterase Urine Negative (Negative); Nitrate Urine Negative (Negative); Protein Urine Neg (Negative); Specific Gravity, Urine 1.005 (1.005-1.030); Urine Appearance Clear (CLEAR); Urine Color Yellow (Yellow); Urobilinogen Urine Norm (Negative); pH Urine 7 (5-7)
[2023-08-23 00:31] VITALS: BP 121/66; PULSE 81; RESP 19; O2SAT 96
== END 2023-08-23 00:35 | disposition home or self-care (01) ==
PROVIDERS: Emergency Provider Emergency Medicine; PCP Family Medicine
DX: R00.2 Palpitations (principal); I48.91 Unspecified atrial fibrillation; Z79.82 Long term (current) use of aspirin
CPT/HCPCS: 71045; 80053; 81003; 83735; 83880; 84443; 84484; 85025; 93005; 96361; 96374; 99285; J3490; J7030

== ENCOUNTER 2023-09-06 06:56 | Emergency (ER) | payer MEDICARE, SELFPAY ==
--- NOTE | 2023-09-06 06:57 | ED_ITS ---
HPI - Arrhythmia/Palpitations 2 General: Chief Complaint: Arrhythmia/Palpitations Stated Complaint: heart fluttering Time Seen by Provider: 09/06/23 06:57 History of Present Illness: 83-year-old male presents emerged depart ment with complaints of feeling like his heart is fluttering. He states he has a history of atrial fibrillation and was seen in the emergency department on 08/22/2023. Patient states that he accidentally took a higher dose of his medication as he is a recent medication change and states that he felt like his heart rate may have been having extra beats. He denies pressure, nausea, vomiting dizziness or lightheaded feeling. Review of Systems 2 General: Reports: 10 or more systems reviewed and unremarkable except in HPI and below Card: Reports: palpitations and irregular heart rhythm PFSH ED 2 PFSH: Medical History Atrial fibrillation with rapid ventricular response Atrial fibrillation, new onset Urethral stricture Lower urinary tract symptoms (LUTS) Surgical History Hx of tonsillectomy H/O arthroscopy of knee left History of carpal tunnel release left H/O rotator cuff surgery left Family History Father , at age 63 Cancer tongue Mother , at age 64 Lung disease Social History Smoking and tobacco/nicotine status: never used tobacco/nicotine Alcohol intake: current Alcohol intake frequency: 0-2 Drinks per Day Marital status: Current occupational status: retired Physical Exam 2 Narrative: EXAM NARRATIVE: Constitutional: the patient appears well nourished and with normal development. Vital signs reviewed as documented. HENMT: Normocephalic, atraumatic. Extermal ears with normal appearance without drainage. Nose without drainage, normal appearance. Mucus membranes moist. Neck is supple, No jugular venous distension, trachea is midline, no appreciable carotid bruits. No lymphadenopathy. No meningeal signs. Flexion, extension and lateral rotation is without pain. Eyes: Pupils are equal, round, reactive to light and accommodation. No scleral icterus. Extra-ocular movement are intact. Thorax is symmetrical and with equal rise and fall with respirations. Resp: Lungs are clear to auscultation. No wheezes, rales, crackles or ronchi at present. Cardio: Irregularly irregular consistent with atrial fibrillation. Positive S1, S2. No appreciable murmurs, rubs or gallops. GI: Abdominal exam reveals normal bowel sounds to all quadrants. No organomegaly. No obvious palpable masses noted. No hepatomegally appreciated. Soft, nontender to palpation. Extremity: Extremities are non-edematous and both femoral and pedal pulses are 2+ and equal bilaterally. Moves all extremities well, sensation in all extremities. Neuro: Alert and oriented x4, person, place, time and situation. Cranial nerves II through XII are grossly intact, there is no focal neurological deficits that I can appreciate at present. Motor strength in the upper and lower extremities are equal and bilateral 5/5. Psych: Cooperative, calm, normal thought process, appropriate judgment. Skin: No lesions, rashes. No gross abnormalities noted. Back: Symmetrical, no obvious deformity, No CVA tenderness Course 2 Reevaluation(s): Reevaluation #1: Discussed laboratory findings well as EKG findings and chest x-ray findings with the patient educated patient regarding the importance of ensuring correct medication and dosages. No additional difficulties according to the patient will discharge home with follow-up with the PCP as needed. Time: 08:49 Vital Signs: Vital signs: Vital Signs Temperature 98.3 F 09/06/23 07:05 Pulse Rate 69 09/06/23 08:07 Respiratory Rate 16 09/06/23 08:07 Blood Pressure 109/72 09/06/23 08:07 Pulse Oximetry 96 09/06/23 08:07 Oxygen Delivery Me thod Room Air 09/06/23 08:07 MDM - Arrhythmia/Palpitations Medical Decision Making Physical exam completed and documented, I will obtain serial cardiac enzymes, serial twelve-lead EKGs, chest x-ray, CBC, CMP, urinalysis, B-type natriuretic peptide, PT/PTT/INR, and a chest x-ray. I will review any pervious and pertinent medical records for assist in obtaining beneficial medical information to improved the care and treatment of the patient. Will monitor for adverse medication reaction Medical Records I reviewed the patient's medical records. Lab Data I reviewed the patient's lab results. 09/06/23 07:12 09/06/23 07:12 Radiology Impressions Chest X-Ray 09/06/23 06:58 IMPRESSION: No acute findings. Laboratory Results WBC 7.14 10^3/uL (3.29-11.43) 09/06/23 07:12 RBC 4.39 10^6/uL (3.85-5.65) 09/06/23 07:12 Hgb 14.50 g/dL (11.27-16.99) 09/06/23 07:12 Hct 43.2 % (37-53) 09/06/23 07:12 MCV 98.4 fl (82-101) 09/06/23 07:12 MCH 33.0 pg (27-33) 09/06/23 07:12 MCHC 33.6 g/dL (30-55) 09/06/23 07:12 RDW 12.3 % (12.1-15.1) 09/06/23 07:12 Plt Count 262 10^3/cmm (157-399) 09/06/23 07:12 MPV 8.8 fL (7.4-10.4) 09/06/23 07:12 Neut % (Auto) 50.0 % 09/06/23 07:12 Lymph % (Auto) 37.3 % 09/06/23 07:12 [place] % (Auto) 9.1 % 09/06/23 07:12 Eos % (Auto) 2.8 % 09/06/23 07:12 Baso % (Auto) 0.7 % 09/06/23 07:12 Neut # (Auto) 3.57 10^3/uL (1.8-7.7) 09/06/23 07:12 Lymph # (Auto) 2.7 10^3/uL (0.8-4.8) 09/06/23 07:12 [place] # (Auto) 0.7 10^3/uL (0.2-0.9) 09/06/23 07:12 Eos # (Auto) 0.2 10^3/uL (0.0-0.8) 09/06/23 07:12 Baso # (Auto) 0.1 10^3/uL (0.0-0.1) 09/06/23 07:12 Nucleated RBC % (auto) 0 % 09/06/23 07:12 Nucleated RBCs # 0.0 /100WBC 09/06/23 07:12 PT 13.70 SECONDS (12.1-14.9) 09/06/23 07:12 INR 1.02 (0.8-1.2) 09/06/23 07:12 APTT 26.6 SECONDS (23.9-36.7) 09/06/23 07:12 Sodium 135 mmol/L (136-145) L 09/06/23 07:12 Potassium 4.2 mmol/L (3.5-5.1) 09/06/23 07:12 Chloride 102 mmol/L (98-107) 09/06/23 07:12 Carbon Dioxide 23 mmol/L (22-29) 09/06/23 07:12 Anion Gap 14.2 (5-19) 09/06/23 07:12 BUN 22 mg/dL (8-23) 09/06/23 07:12 Creatinine 0.8 mg/dL (0.7-1.2) 09/06/23 07:12 GFR Calculation Not Reportable 09/06/23 07:12 Glucose 101 mg/dL (65-115) 09/06/23 07:12 Calculated Osmolality 283 mOsm/kg (285-295) L 09/06/23 07:12 Calcium 9.0 mg/dL (8.5-10.5) 09/06/23 07:12 Total Bilirubin 0.3 mg/dL (0.15-1.2) 09/06/23 07:12 AST 19 U/L (0-40) 09/06/23 07:12 ALT 16 U/L (0-41) 09/06/23 07:12 Alkaline Phosphatase 130 U/L (40-130) 09/06/23 07:12 Troponin T Baseline 12 ng/L (0-15) 09/06/23 07:12 NT-Pro-B Natriuret Pep 336 pg/mL (0-450) 09/06/23 07:12 Total Protein 6.3 g/dL (6.6-8.7) L 09/06/23 07:12 Albumin 4.0 g/dL (3.5-5.2) 09/06/23 07:12 Globulin 2.3 g/dL (1.3-4.6) 09/06/23 07:12 All radiology interpretation(s) finalized by discharge EKG Data EKG 1: Interpretation: Twelve-lead EKG obtained at 704 and reviewed at 706 demonstrates atrial fibrillation with a ventricular rate of 86 bpm QRS duration 84 QT 331 QTc [address] elevation or depression to demonstrate acute ischemia at present. Other EKG comments: Chest X-Ray 09/06/23 06:58 IMPRESSION: No acute findings. EKG 2: Computer generated interpretation: Twelve-lead EKG obtained at 834 reviewed at 835 demonstrates rate controlled atrial fibrillation with a ventricular rate of 65 bpm QRS duration 86 QT [address] elevation or depression to demonstrate acute ischemia or infarction at present. Other EKG comments: Chest X-Ray 09/06/23 06:58 IMPRESSION: No acute findings. Discharge Plan Discharge Patient Disposition: Home Clinical Impression: Palpitations, Atrial fibrillation, Accidental medication error Condition: Stable Prescriptions: No Action vitamin B complex [B Complex-Vitamin B12] Tablet 1 tab PO QAM ascorbate calcium (vitamin C) 500 mg tablet 500 mg PO QAM flaxseed oil 1,000 mg capsule 1,000 mg PO QAM Rx Instructions: administer with a meal selenium 100 mcg tablet 100 mcg PO QAM melatonin 5 mg Tablet 5 mg PO BEDTIME omega-3 fatty acids 1,000 mg Capsule 1,000 mg PO QAM phenytoin sodium extended [Dilantin Extended] 100 mg capsule 100 mg PO BID metoprolol tartrate 50 mg tablet 50 mg PO BID levetiracetam 750 mg tablet extended release 24 hr 750 mg PO DAILY Rx Instructions: NOT STARTED TAKING OF 09/06/23 Mike Mag Zinc Plus D3 333 mg-133 unit -133 mg-5 mg Tablet 1 tab PO BID PreserVision AREDS-2 250-90-40-1 mg Capsule 1 tab PO BID aspirin 325 mg tablet 325 mg PO QAM Discharge Orders: Discharge ED (Routine); Ordered 09/06/23 Ordered By: Franck Orozco Referrals: Darell Jackson MD [Primary Care Provider] - Discharge Diet: Advance as tolerated Discharge Activity: Resume usual activity Patient Instructions: Opioid Safety, Pain Management Activity Restrictions/Additional Instructions: Activity Restrictions/Additional Instructions: Thank you for choosing [facility] for your healthcare needs today. Please realize that you were seen in the Emergency Department and that we are providing you with an emergency medical screening exam and this may not be a complete and all inclusive of all the testing and or medical work-up that you may need to determine your ailment or severity of your illness. It is very important that you follow-up as instructed with your Primary care provider or Specialist for additional evaluation and to discuss your medical treatment plan. You may return to the Emergency Department should you have concerns or if your condition changes or worsens in any way. Coding Level of Care Code ED Social Media Sr Strategy Manager for [employer]
--- NOTE | 2023-09-06 06:58 | XRR_ITS ---
PROCEDURE INFORMATION: Exam: XR Chest Exam date and time: 09/06/2023 7:06 AM Age: 83 years old Clinical indication: Other: Palpitations TECHNIQUE: Imaging protocol: Radiologic exam of the chest. Views: 1 view. COMPARISON: CR (CHEST, ) 08/22/2023 11:17 PM FINDINGS: Lungs: Unremarkable. No consolidation. Pleural spaces: Unremarkable. No pleural effusion. No pneumothorax. Heart/Mediastinum: Unremarkable. No cardiomegaly. Bones/joints: Unremarkable. XR/XR chest 1V portable [id number] IMPRESSION: No acute findings.
--- NOTE | 2023-09-06 07:04 | ECG_ITS ---
[facility] Test Date: 2023-09-06 Pat Name: Jesus Avilez Department: Room: Gender: Male Incinerator Attendant: : 1940 Requested By: Franck Orozco Order Number: [id number] Crawford MD: Naga Celis M.D. Measurements Intervals [place] Rate: 86 P: 0 MO: 0 QRS: 3 QRSD: 84 T: 60 QT: 331 QTc: 397 Interpretive Statements ATRIAL FIBRILLATION LOW QRS VOLTAGE IN PRECORDIAL LEADS [QRS DEFLECTION < 1.0 mV IN CHEST LEADS] Compared to ECG 08/22/2023 22:15:08 T-wave abnormality no longer present Electronically Signed On 09-06-2023 16:23:14 ADVERTISING COLUMNIST by Naga Celis M.D. [id number] f
[2023-09-06 07:05] VITALS: BP 135/90; PULSE 60; RESP 18; TEMP 36.8; O2SAT 96; BMI 27.3
[2023-09-06 07:27] LABS: Basophils # 0.1 10^3/uL (0.0-0.1); Basophils % 0.7 %; Eosinophils # 0.2 10^3/uL (0.0-0.8); Eosinophils % 2.8 %; Hematocrit 43.2 % (37-53); Lymphocytes # 2.7 10^3/uL (0.8-4.8); Lymphocytes % 37.3 %; Mean Corpuscular HGB Conc 33.6 g/dL (30-55); Mean Corpuscular Volume 98.4 fl (82-101); Mean Platelet Volume 8.8 fL (7.4-10.4); Monocytes # 0.7 10^3/uL (0.2-0.9); Monocytes % 9.1 %; Neutrophils # 3.57 10^3/uL (1.8-7.7); Nucleated Red Blood Cells % 0 %; Platelet Count 262 10^3/cmm (157-399); Red Blood Count 4.39 10^6/uL (3.85-5.65); Red Cell Distribution Width 12.3 % (12.1-15.1); White Blood Count 7.14 10^3/uL (3.29-11.43)
[2023-09-06 07:38] LABS: INR 1.02 (0.8-1.2)
[2023-09-06 07:40] LABS: Partial Thromboplastin Time 26.6 SECONDS (23.9-36.7)
[2023-09-06 07:50] LABS: Troponin(5th) Baseline 12 ng/L (0-15)
[2023-09-06 08:00] LABS: Alanine Aminotransferase 16 U/L (0-41); Alkaline Phosphatase 130 U/L (40-130); Anion Gap 14.2 (5-19); Aspartate Amino Transferase 19 U/L (0-40); Blood Urea Nitrogen 22 mg/dL (8-23); Carbon Dioxide 23 mmol/L (22-29); Chloride 102 mmol/L (98-107); Globulin 2.3 g/dL (1.3-4.6); Glucose 101 mg/dL (65-115); NT Pro B Type Natriuretic Pept 336 pg/mL (0-450); Osmolality Calculated 283 mOsm/kg (285-295); Potassium 4.2 mmol/L (3.5-5.1); Sodium 135 mmol/L (136-145); Total Bilirubin 0.3 mg/dL (0.15-1.2); Total Protein 6.3 g/dL (6.6-8.7)
[2023-09-06 08:07] VITALS: BP 109/72; PULSE 69; RESP 16; O2SAT 96
--- NOTE | 2023-09-06 08:21 | PC.PHAR ---
PT STATES HE TAKES CARE OF HIS OWN MEDICATIONS-PT STATES HE WAS TAKING METOPROLOL TARTRATE 25MG TAKING 37.5MG BID STATES HE PICKED UP NEW RX YESTERDAY 09/05/23 STATES HE DIDNT KNOW IT WAS CHANGED TO A 50MG TAB AND TOOK 75MG BUT STATES TOOK 100MG TODAY 09/06/23-NOTES ARE MADE IN THE PHARMACY COMMENTS-PT STATES HE HASNT STARTED TAKING LEVETIRACETAM ER 750MG DAILY OF 09/06/23 RX FILLED 08/13/23 90D/S-
--- NOTE | 2023-09-06 08:34 | ECG_ITS ---
[facility] Test Date: 2023-09-06 Pat Name: Jesus Avilez Department: Room: Gender: Male Chemistry Intern: : 1940 Requested By: Franck Orozco Order Number: [id number] Yvette MD: Naga Celis M.D. Measurements Intervals [place] Rate: 65 P: 0 [place]: 0 QRS: -5 QRSD: 86 T: 66 QT: 371 QTc: 386 Interpretive Statements ATRIAL FIBRILLATION LOW QRS VOLTAGE IN PRECORDIAL LEADS [QRS DEFLECTION < 1.0 mV IN CHEST LEADS] MINIMAL VOLTAGE CRITERIA FOR LVH, CONSIDER NORMAL VARIANT [MEETS CRITERIA IN ONE OF: R(aVL), S(V1), R(V5), R(V5/V6)+S(V1)] ABNORMAL RHYTHM ECG Compared to ECG 08/22/2023 22:15:08 T-wave abnormality no longer present Electronically Signed On 09-07-2023 10:53:52 GEOCHEMISTRY TEACHER by Naga Celis M.D. [id number]
== END 2023-09-06 09:34 | disposition home or self-care (01) ==
PROVIDERS: Emergency Provider Internal Medicine; PCP Family Medicine
DX: I48.91 Unspecified atrial fibrillation (principal); R00.2 Palpitations; T50.901A Poisoning by unspecified drugs, medicaments and biological substances, accidental (unintentional), initial encounter; Z79.82 Long term (current) use of aspirin
CPT/HCPCS: 36415; 71045; 80053; 83880; 84484; 85025; 85610; 85730; 93005; 99285

== ENCOUNTER 2023-10-23 08:43 | Emergency (ER) | payer MEDICARE, SELFPAY ==
[2023-10-23 08:45] VITALS: BP 152/83; PULSE 153; RESP 16; TEMP 36.3; O2SAT 94; BMI 25.0
--- NOTE | 2023-10-23 08:45 | XR_ITS ---
WS: [id number] Examination: XR chest 1V portable [id number] Reason for Exam: cp Date: October 23, 2023 Comparison: September 06, 2023 Findings: The cardiomediastinal silhouette is within normal limits. There is no pulmonary edema or pleural effusion. No dense consolidation is identified. Chronic changes at the shoulders are noted bilaterally. Postsurgical changes are noted involving the distal left clavicle. Impression: No acute lung process is seen.
--- NOTE | 2023-10-23 08:45 | ECG_ITS ---
[facility] Test Date: 2023-10-23 Pat Name: Jesus Avilez Department: Room: Gender: Male Range Rider: : 1940 Requested By: Jorge Cao Order Number: [id number] Yvette MD: Naga Celis M.D. Measurements Intervals [place] Rate: 120 P: 0 NV: 0 QRS: -7 QRSD: 88 T: 73 QT: 284 QTc: 401 Interpretive Statements ATRIAL FIBRILLATION WITH RAPID VENTRICULAR RESPONSE LOW QRS VOLTAGE IN PRECORDIAL LEADS [QRS DEFLECTION < 1.0 mV IN CHEST LEADS] NONSPECIFIC T-WAVE ABNORMALITY Compared to ECG 09/06/2023 08:34:06 T-wave abnormality now present Electronically Signed On 10-23-2023 10:47:01 SCIENTIFIC TECHNICAL WRITER by Naga Celis M.D. [id number] f
--- NOTE | 2023-10-23 08:50 | ED_ITS ---
HPI - Arrhythmia/Palpitations 2 General: Chief Complaint: Chest Pain Stated Complaint: chest pain Time Seen by Provider: 10/23/23 08:45 Source: patient Mode of arrival: ambulatory Limitations: no limitations History of Present Illness: 83-year-old male with a history of A-fib he states he takes metoprolol for his A-fib. States this morning he started having some palpitations he took his metoprolol as he continued to have tachycardia in the 120s at home. He denies any pain to states he feels like his heart is fluttering. He is in A-fib with RVR here. He denies any cough fever or shortness of breath. Associated symptoms: Deny nausea or vomiting Review of Systems 2 Const: Denies: fever(s), chills, body aches or change in appetite ENMT: Denies: throat pain or dental pain Card: Reports: palpitations; Denies: chest pain Resp: Denies: dyspnea GI: Denies: abdominal pain, nausea, vomiting or diarrhea Musc: Denies: neck pain or back pain Skin/Breast: Denies: rash Neuro: Denies: headache(s) PFSH ED 2 PFSH: Medical History Atrial fibrillation with rapid ventricular response Atrial fibrillation, new onset Urethral stricture Lower urinary tract symptoms (LUTS) Surgical History Hx of tonsillectomy H/O arthroscopy of knee left History of carpal tunnel release left H/O rotator cuff surgery left Family History Father , at age 63 Cancer tongue Mother , at age 64 Lung disease Social History Smoking and tobacco/nicotine status: never used tobacco/nicotine Alcohol intake: current Alcohol intake frequency: 0-2 Drinks per Day Marital status: Current occupational status: retired Physical Exam 2 Const: COMMON NORMALS: patient oriented x3 HENMT: COMMON NORMALS: normocephalic and atraumatic HEAD & SCALP: n ormocephalic and atraumatic Eye: COMMON NORMALS: conjunctivae normal CONJUNCTIVA: Yes conjunctivae normal Neck/C-Spine: COMMON NORMALS: full ROM and supple Chest: COMMONS NORMALS: normal inspection of the chest and normal palpation of entire chest wall Resp: COMMON NORMALS: normal respiratory effort, No retractions, No use of accessory muscles and clear to auscultation bilaterally AUSCULTATION: clear to auscultation bilaterally Cardio: RATE: tachycardic RHYTHM: abnormal rhythm irregularly irregular Extremity: COMMON NORMALS: normal to inspection and full ROM Neuro: COMMON NORMALS: patient oriented x3, moves all extremities and no focal motor deficits Psych: COMMON NORMALS: mental status grossly normal, Normal thought process present and cooperative THOUGHT PROCESS: Normal thought process present Skin: COMMON NORMALS: no rashes or lesions noted and no wounds GENERAL SKIN EXAM: no rashes or lesions noted Course 2 Vital Signs: Vital signs: Vital Signs Temperature 97.3 F L 10/23/23 08:45 Pulse Rate 72 10/23/23 10:29 Respiratory Rate 16 10/23/23 10:29 Blood Pressure 109/67 10/23/23 10:29 Pulse Oximetry 96 10/23/23 10:29 Oxygen Delivery Me thod Room Air 10/23/23 10:08 MDM - Arrhythmia/Palpitations Medical Decision Making Patient presents here with palpitations he does have a history of A-fib he is in A-fib with RVR after 1 dose of Cardizem he has been in the 70s and his symptoms are resolved his blood work here is all normal he is stable for discharge follow-up with painting machine operator in 4 to 7 days and return if worsening. Medical Records I reviewed the patient's medical records. Lab Data I reviewed the patient's lab results. 10/23/23 08:54 10/23/23 09:15 Laboratory Results WBC 7.61 10^3/uL (3.29-11.43) 10/23/23 08:54 RBC 4.85 10^6/uL (3.85-5.65) 10/23/23 08:54 Hgb 15.90 g/dL (11.27-16.99) 10/23/23 08:54 Hct 46.3 % (37-53) 10/23/23 08:54 MCV 95.5 fl (82-101) 10/23/23 08:54 MCH 32.8 pg (27-33) 10/23/23 08:54 MCHC 34.3 g/dL (30-55) 10/23/23 08:54 RDW 13.3 % (12.1-15.1) 10/23/23 08:54 Plt Count 208 10^3/cmm (157-399) 10/23/23 08:54 MPV 8.6 fL (7.4-10.4) 10/23/23 08:54 Neut % (Auto) 50.5 % 10/23/23 08:54 Lymph % (Auto) 36.0 % 10/23/23 08:54 [place] % (Auto) 10.6 % 10/23/23 08:54 Eos % (Auto) 2.0 % 10/23/23 08:54 Baso % (Auto) 0.8 % 10/23/23 08:54 Neut # (Auto) 3.84 10^3/uL (1.8-7.7) 10/23/23 08:54 Lymph # (Auto) 2.7 10^3/uL (0.8-4.8) 10/23/23 08:54 [place] # (Auto) 0.8 10^3/uL (0.2-0.9) 10/23/23 08:54 Eos # (Auto) 0.2 10^3/uL (0.0-0.8) 10/23/23 08:54 Baso # (Auto) 0.1 10^3/uL (0.0-0.1) 10/23/23 08:54 Nucleated RBC % (auto) 0 % 10/23/23 08:54 Nucleated RBCs # 0.0 /100WBC 10/23/23 08:54 PT 13.70 SECONDS (12.1-14.9) 10/23/23 09:15 INR 1.01 (0.8-1.2) 10/23/23 09:15 Sodium 134 mmol/L (136-145) L 10/23/23 09:15 Potassium 4.4 mmol/L (3.5-5.1) 10/23/23 09:15 Chloride 100 mmol/L (98-107) 10/23/23 09:15 Carbon Dioxide 22 mmol/L (22-29) 10/23/23 09:15 Anion Gap 16.4 (5-19) 10/23/23 09:15 BUN 17 mg/dL (8-23) 10/23/23 09:15 Creatinine 0.7 mg/dL (0.7-1.2) 10/23/23 09:15 GFR Calculation Not Reportable 10/23/23 09:15 Glucose 141 mg/dL (65-115) H 10/23/23 09:15 Calculated Osmolality 282 mOsm/kg (285-295) L 10/23/23 09:15 Calcium 8.6 mg/dL (8.5-10.5) 10/23/23 09:15 Total Bilirubin 0.2 mg/dL (0.15-1.2) 10/23/23 09:15 AST 23 U/L (0-40) 10/23/23 09:15 ALT 17 U/L (0-41) 10/23/23 09:15 Alkaline Phosphatase 125 U/L (40-130) 10/23/23 09:15 Troponin T Baseline 10 ng/L (0-15) 10/23/23 09:15 Total Protein 6.4 g/dL (6.6-8.7) L 10/23/23 09:15 Albumin 3.9 g/dL (3.5-5.2) 10/23/23 09:15 Globulin 2.5 g/dL (1.3-4.6) 10/23/23 09:15 Lipase 50 U/L (13-60) 10/23/23 09:15 All radiology interpretation(s) finalized by discharge EKG Data EKG 1: I personally reviewed and interpreted this EKG as follows: EKG interpretation date: 10/23/23 EKG interpretation time: 08:49 Interpretation: afib with rvr hr [address] or t wave abnormalities qrs 88 qtc 355 Discharge Plan Discharge Patient Disposition: Home Clinical Impression: Atrial fibrillation Condition: Stable Prescriptions: No Action vitamin B complex [B Complex-Vitamin B12] Tablet 1 tab PO QAM ascorbate calcium (vitamin C) 500 mg tablet 500 mg PO QAM flaxseed oil 1,000 mg capsule 1,000 mg PO QAM Rx Instructions: administer with a meal selenium 100 mcg tablet 100 mcg PO QAM melatonin 5 mg Tablet 5 mg PO BEDTIME omega-3 fatty acids 1,000 mg Capsule 1,000 mg PO QAM phenytoin sodium extended [Dilantin Extended] 100 mg capsule 100 mg PO BID metoprolol tartrate 50 mg tablet 50 mg PO BID Mike Mag Zinc Plus D3 333 mg-133 unit -133 mg-5 mg Tablet 1 tab PO BID PreserVision AREDS-2 250-90-40-1 mg Capsule 1 tab PO BID aspirin 325 mg tablet 325 mg PO QAM Discharge Orders: Discharge ED (Routine); Ordered 10/23/23 Ordered By: Jorge Cao Referrals: Darell Jackson MD [Primary Care Provider] - Discharge Diet: Advance as tolerated Discharge Activity: Resume usual activity Patient Instructions: A-fib (Atrial Fibrillation) (ED) Coding Level of Care Code ED Customer Service Attendant for [employer]
[2023-10-23 08:52] VITALS: BP 152/83; PULSE 103; RESP 19; O2SAT 95
[2023-10-23] MEDS: dilTIAZem 5 mg/mL SDV 5 mL 10 MG IVP (08:57)
[2023-10-23 09:00] VITALS: BP 101/77
[2023-10-23 09:01] LABS: Basophils # 0.1 10^3/uL (0.0-0.1); Basophils % 0.8 %; Eosinophils # 0.2 10^3/uL (0.0-0.8); Hematocrit 46.3 % (37-53); Lymphocytes # 2.7 10^3/uL (0.8-4.8); Mean Corpuscular HGB Conc 34.3 g/dL (30-55); Mean Corpuscular Hemoglobin 32.8 pg (27-33); Mean Corpuscular Volume 95.5 fl (82-101); Mean Platelet Volume 8.6 fL (7.4-10.4); Monocytes # 0.8 10^3/uL (0.2-0.9); Monocytes % 10.6 %; Neutrophils # 3.84 10^3/uL (1.8-7.7); Neutrophils % 50.5 %; Nucleated Red Blood Cells % 0 %; Platelet Count 208 10^3/cmm (157-399); Red Blood Count 4.85 10^6/uL (3.85-5.65); Red Cell Distribution Width 13.3 % (12.1-15.1); White Blood Count 7.61 10^3/uL (3.29-11.43)
[2023-10-23] MEDS: sodium chloride 0.9% 1,000 ML 999 ML IV (09:13)
--- NOTE | 2023-10-23 09:15 | PC.PHAR ---
pt states he takes care of his own medications-pt states he took levetiracetam er 750mg daily for 2 weeks rx filled 08/13/23 90d/s pt states dr alejandra a week and a half ago and is now only taking dilantin er 100mg bid -notes are made in the pharmacy comments
[2023-10-23 09:54] LABS: INR 1.01 (0.8-1.2)
[2023-10-23 09:58] LABS: Alanine Aminotransferase 17 U/L (0-41); Albumin Level 3.9 g/dL (3.5-5.2); Alkaline Phosphatase 125 U/L (40-130); Anion Gap 16.4 (5-19); Aspartate Amino Transferase 23 U/L (0-40); Blood Urea Nitrogen 17 mg/dL (8-23); Calcium 8.6 mg/dL (8.5-10.5); Carbon Dioxide 22 mmol/L (22-29); Chloride 100 mmol/L (98-107); Creatinine Clr Calc Pharmacy 70.3595; Globulin 2.5 g/dL (1.3-4.6); Glucose 141 mg/dL (65-115); Lipase 50 U/L (13-60); Osmolality Calculated 282 mOsm/kg (285-295); Potassium 4.4 mmol/L (3.5-5.1); Sodium 134 mmol/L (136-145); Total Bilirubin 0.2 mg/dL (0.15-1.2); Total Protein 6.4 g/dL (6.6-8.7)
[2023-10-23 09:59] LABS: Troponin(5th) Baseline 10 ng/L (0-15)
[2023-10-23 10:08] VITALS: BP 115/66; PULSE 73; RESP 16; O2SAT 96
[2023-10-23 10:29] VITALS: BP 109/67; PULSE 72; RESP 16; O2SAT 96
== END 2023-10-23 10:37 | disposition home or self-care (01) ==
PROVIDERS: Emergency Provider Emergency Medicine; PCP Family Medicine
DX: I48.91 Unspecified atrial fibrillation (principal); Z79.82 Long term (current) use of aspirin
CPT/HCPCS: 36415; 71045; 80053; 83690; 84484; 85025; 85610; 93005; 96361; 96374; 99285; J3490; J7030

== ENCOUNTER 2023-10-23 13:53 | Observation (INO) | payer MEDICARE, SELFPAY ==
[2023-10-23] VITALS (8 sets, daily range): BP systolic 103–157; BP diastolic 63–92; PULSE 59–145; RESP 13–17; TEMP 36.6–36.8; O2SAT 94–98; BMI 24.3
--- NOTE | 2023-10-23 13:59 | ECG_ITS ---
[facility] Test Date: 2023-10-23 Pat Name: Jesus Avilez Department: Room: Gender: Male Verification Rep: : 1940 Requested By: Jorge Cao Order Number: [id number] Yvette MD: Naga Celis M.D. Measurements Intervals [place] Rate: 99 P: 0 [place]: 0 QRS: 7 QRSD: 88 T: 78 QT: 307 QTc: 396 Interpretive Statements ATRIAL FIBRILLATION NONSPECIFIC T-WAVE ABNORMALITY Compared to ECG 10/23/2023 08:49:38 No significant changes Electronically Signed On 10-23-2023 18:58:34 ANALYST BUSINESS ANALYSIS by Naga Celis M.D. [id number]
--- NOTE | 2023-10-23 14:09 | ED_ITS ---
HPI - Arrhythmia/Palpitations General: Chief Complaint: Arrhythmia/Palpitations Stated Complaint: heart issues Time Seen by Provider: 10/23/23 13:56 Source: patient Mode of arrival: ambulatory Limitations: no limitations History of Present Illness: 83-year-old male seen here earlier today with A-fib with RVR. Patient given 1 dose of Cardizem his heart rate was in the 70s and felt improved he states that he felt good and after lunch she started to become tachycardic in the 120s and 130s he denies any fevers. He is on metoprolol at home for rate control. Associated symptoms: Deny nausea or vomiting Review of Systems Const: Denies: fever(s), chills, body aches or change in appetite ENMT: Denies: throat pain or dental pain Card: Reports: palpitations; Denies: chest pain Resp: Denies: dyspnea GI: Denies: abdominal pain, nausea, vomiting or diarrhea Musc: Denies: neck pain or back pain Skin/Breast: Denies: rash Neuro: Denies: headache(s) PFSH ED PFSH: Medical History Atrial fibrillation with rapid ventricular response Atrial fibrillation, new onset Urethral stricture Lower urinary tract symptoms (LUTS) Surgical History Hx of tonsillectomy H/O arthroscopy of knee left History of carpal tunnel release left H/O rotator cuff surgery left Family History Father , at age 63 Cancer tongue Mother , at age 64 Lung disease Social History Smoking and tobacco/nicotine status: never used tobacco/nicotine Alcohol intake: current Alcohol intake frequency: 0-2 Drinks per Day Marital status: Current occupational status: retired Physical Exam Const: COMMON NORMALS: patient oriented x3 HENMT: COMMON NORMALS: normocephalic and atraumatic HEAD & SCALP: normocephalic and atraumatic Neck/C-Spine: COMMON NORMALS: full ROM and supple Chest: COMMONS NORMALS: normal inspection of the chest Resp: COMMON NORMALS: normal respiratory effort, No retractions, No use of acc essory muscles and clear to auscultation bilaterally AUSCULTATION: clear to auscultation bilaterally Cardio: COMMON NORMALS: No murmurs present (Cardio) RATE: tachycardic RHYTHM: abnormal rhythm irregularly irregular Extremity: COMMON NORMALS: normal to inspection and full ROM Neuro: COMMON NORMALS: patient oriented x3, moves all extremities and no focal motor deficits Psych: COMMON NORMALS: mental status grossly normal, Normal thought process present and cooperative THOUGHT PROCESS: Normal thought process present Skin: COMMON NORMALS: no rashes or lesions noted and no wounds GENERAL SKIN EXAM: no rashes or lesions noted Course Vital Signs: Vital signs: Vital Signs Temperature 98.3 F 10/23/23 13:57 Pulse Rate 93 10/23/23 13:57 Respiratory Rate 17 10/23/23 13:57 Blood Pressure 157/92 10/23/23 13:57 Pulse Oximetry 98 10/23/23 13:57 Oxygen Delivery Me thod Room Air 10/23/23 13:57 MDM - Arrhythmia/Palpitations Medical Decision Making Patient presents with a with RVR when he went up and went to the bathroom his heart rate jumped to the 140s currently is 120 I spoke to him and informed him since he keeps getting tachycardic we will have to start him on a drip at this time and admit I did speak to the hospitalist will admit at this time. Medical Records I reviewed the patient's medical records. Lab Data I reviewed the patient's lab results. Laboratory Results Troponin T Baseline 11 ng/L (0-15) 10/23/23 14:08 All radiology interpretation(s) finalized by discharge EKG Data EKG 1: I personally reviewed and interpreted this EKG as follows: EKG interpretation date: 10/23/23 EKG interpretation time: 13:59 Interpretation: afib hr [address] or t wave abnormalities qrs 88 qtc 364 Discharge Plan Discharge Patient Disposition: Admitted As Inpatient Clinical Impression: Atrial fibrillation with RVR Condition: Stable Prescriptions: No Action vitamin B complex [B Complex-Vitamin B12] Tablet 1 tab PO QAM ascorbate calcium (vitamin C) 500 mg tablet 500 mg PO QAM flaxseed oil 1,000 mg capsule 1,000 mg PO QAM Rx Instructions: administer with a meal selenium 100 mcg tablet 100 mcg PO QAM melatonin 5 mg Tablet 5 mg PO BEDTIME omega-3 fatty acids 1,000 mg Capsule 1,000 mg PO QAM phenytoin sodium extended [Dilantin Extended] 100 mg capsule 100 mg PO BID metoprolol tartrate 50 mg tablet 50 mg PO BID Mike Mag Zinc Plus D3 333 mg-133 unit -133 mg-5 mg Tablet 1 tab PO BID PreserVision AREDS-2 250-90-40-1 mg Capsule 1 tab PO BID aspirin 325 mg tablet 325 mg PO QAM Referrals: Darell Jackson MD [Primary Care Provider] - Coding Level of Care Code ED Threshing Machine Operator for Chg Mohamud
--- NOTE | 2023-10-23 14:10 | PC.NURSE ---
Medication Delay: Diltiazem delayed d/t not being verified by pharmacy
[2023-10-23] MEDS: sodium chloride 0.9% 1,000 ML 999 ML IV (14:21)
[2023-10-23] MEDS: dilTIAZem 60 mg Tablet PO (14:27)
[2023-10-23 14:53] LABS: Troponin(5th) Baseline 11 ng/L (0-15)
[2023-10-23] MEDS: dilTIAZem 100 MG in sodium chloride 0.9% (add-van) 100 ML IV (15:38)
--- NOTE | 2023-10-23 15:39 | PC.NURSE ---
@1535: pt HR currently 81, Dr. Cao aware and verbally okayed starting Diltiazem drip @5mg/hr
--- NOTE | 2023-10-23 16:01 | ECG_ITS ---
[facility] Test Date: 2023-10-23 Pat Name: Jesus Avilez Department: Room: 101 Gender: Male Claims Agent Right Of Way: : 1940 Requested By: Jorge Cao Order Number: [id number] Yvette MD: Naga Celis M.D. Measurements Intervals Metter Rate: 80 P: 74 IN: 208 QRS: -2 QRSD: 87 T: 57 QT: 348 QTc: 401 Interpretive Statements SINUS RHYTHM LOW QRS VOLTAGE IN PRECORDIAL LEADS [QRS DEFLECTION < 1.0 mV IN CHEST LEADS] Compared to ECG 10/23/2023 13:59:55 Low QRS voltage now present Atrial fibrillation no longer present T-wave abnormality no longer present Electronically Signed On 10-23-2023 18:58:51 WAFFLE MACHINE OPERATOR by Naga Celis M.D. [id number]
--- NOTE | 2023-10-23 16:54 | PM.HP ---
Providers/Chief Complaint Admitting Physician: Nataliia Miles MD Primary Care Provider: Darell Jacksno MD Chief Complaint: heart issues History of Present Illness Jesus Avilez is a 83 year old male with history of paroxysmal A-fib, does not want to take Eliquis because of drug interaction with Dilantin, has history of epilepsy, last seizure was 20 years ago presented with palpitations. Patient was seen in the morning in the ER he was discharged home when his heart rate was controlled, he came back because of similar complaints. He was diagnosed with A-fib RVR this time he was put on Cardizem drip at the time of my evaluation he has converted to sinus rhythm already and heart rate is around 70s no active chest pain shortness of breath or confusion. Patient stating that he does not want to take any blood thinners other than aspirin he is scheduled to get Watchman device placed on November 16 in [place]. At the time of evaluation I will request magnesium and TSH, D-dimer, I will put him on therapeutic Lovenox I will increase the dose of metoprolol and titrate off Cardizem because he is already converted to sinus rhythm Review of Systems Const: Denies: malaise Eyes: Denies: change in vision ENMT: Denies: throat pain Card: Denies: chest pain Resp: Denies: dyspnea GI: Denies: abdominal pain : Denies: flank pain Medications/Allergies Home Medications Medication Instructions Recorded Confirmed Last Taken Type ascorbate calcium (vitamin C) 500 500 mg PO QAM 12/12/20 10/23/23 10/23/23 History mg tablet flaxseed oil 1,000 mg capsule 1,000 mg PO QAM 12/12/20 10/23/23 10/23/23 History selenium 100 mcg tablet 100 mcg PO QAM 12/12/20 10/23/23 10/23/23 History vitamin B complex (B 1 tab PO QAM 12/12/20 10/23/23 10/23/23 History Complex-Vitamin B12 tablet) melatonin 5 mg tablet 5 mg PO BEDTIME 06/02/23 10/23/23 10/22/23 History omega-3 fatty acids 1,000 mg 1,000 mg PO QAM 06/02/23 10/23/23 10/23/23 History capsule aspirin 325 mg tablet 325 mg PO QAM 09/06/23 10/23/23 10/23/23 History calcium carb 333 mg-vit D3 133 1 tab PO BID 09/06/23 10/23/23 10/23/23 History unit-mag ox 133 mg-zinc oxide 5 mg tab (Mike Mag Zinc Plus D3) metoprolol tartrate 50 mg tablet 50 mg PO BID 09/06/23 10/23/23 10/23/23 07:25 History phenytoin sodium extended 100 mg 100 mg PO BID 09/06/23 10/23/23 10/23/23 History capsule (Dilantin Extended) vit C 250 mg-vit E 90 mg-zinc 40 1 tab PO BID 09/06/23 10/23/23 10/23/23 History mg-copper 1 [id number] capsule (PreserVision AREDS-2) Allergies Allergy/AdvReac Type Severity Reaction Status Date / Time levetiracetam [From [facility]] Allergy ADR-Halluci Verified 10/23/23 09:12 nating PFSH Acute PFSH: Medical History Atrial fibrillation with rapid ventricular response Atrial fibrillation, new onset Urethral stricture Lower urinary tract symptoms (LUTS) Surgical History Hx of tonsillectomy H/O arthroscopy of knee left History of carpal tunnel release left H/O rotator cuff surgery left Family History Father , at age 63 Cancer tongue Mother , at age 64 Lung disease Social History Smoking and tobacco/nicotine status: never used tobacco/nicotine Alcohol intake: current Alcohol intake frequency: 0-2 Drinks per Day Marital status: Current occupational status: retired Vitals/I&O/Wt Last Vital Signs Temp 98.3 F 10/23/23 13:57 Pulse 83 10/23/23 15:42 Resp 16 10/23/23 15:42 BP 133/77 10/23/23 15:42 Pulse Ox 94 10/23/23 15:42 O2 Del Method Room Air 10/23/23 15:55 10/23/23 10/23/23 10/23/23 06:59 14:59 22:59 Intake Total 1000 / 1000 Balance 1000 / 1000 Weight last 48 hrs Weight 72.575 kg Weight 72.575 kg Physical Exam Narrative: Patient is awake and alert Incident rhythm heart rate in 70s Pleasant cooperative nonfocal neuroexam Currently on room air Pleasant cooperative GCS 15 Abdomen soft A&P Assessment and plan (1) Atrial fibrillation with RVR: (2) Anxiety: Plan Paroxysmal A-fib Currently sinus rhythm on Cardizem If he goes back into paroxysmal A-fib rhythm he might need cardiology for antiarrhythmic medication patient is scheduled for Watchman device on November 16 in [place] Does not want to use Eliquis I will keep him on therapeutic Lovenox for now He is concerned about drug interaction with Dilantin History of epilepsy last seizure was 20 years ago No active chest pain shortness of breath or confusion Asymptomatic I would increase the dose of metoprolol to 100 mg twice daily and discontinue Cardizem drip in next few hours Check magnesium and D-dimer Continue cardiac diet Plan to discharge by tomorrow EKG showing A-fib Chest x-ray unremarkable Review of records from the ER revealed patient was seen in the ER in the morning for similar complaints CHADVASC 4 Attestations Medical Necessity Statement*: Anticipating discharge within 48 hours Diagnoses Atrial fibrillation with RVR I48.91 Anxiety F41.9
[2023-10-23 16:57] LABS: Troponin 5 2HR 10.13 ng/L (0-15)
[2023-10-23 17:02] LABS: Troponin 5 2HR Delta -0.87 ABS# (0-10)
[2023-10-23 17:22] LABS: D Dimer 0.49 ug/mLFEU (0-0.59)
[2023-10-23 17:23] LABS: Estmated Average Glucose 108; Hemoglobin A1C 5.4 % (4.0-6.0)
[2023-10-23 17:35] LABS: Thyroid Stimulating Hormone 1.27 uIU/mL (0.27-4.20)
[2023-10-23] MEDS: metoprolol tartrate 50 mg Tablet 100 MG PO (18:05)
[2023-10-23] MEDS: enoxaparin 80 mg/0.8 mL Syringe 70 MG SUBCUT (18:05)
[2023-10-23] MEDS: phenytoin ER 100 mg Capsule PO (18:05)
[2023-10-23 20:22] LABS: Troponin 5 6HR 11.25 ng/L (0-15); Troponin 5 6HR Delta 0.25 ng/L (0-12)
[2023-10-24] VITALS: BP 107/61; PULSE 62; RESP 18; TEMP 36.6; O2SAT 92
[2023-10-24 04:00] VITALS: BP 113/62; PULSE 67; RESP 14; TEMP 36.5; O2SAT 96
[2023-10-24 04:14] LABS: Basophils # 0.1 10^3/uL (0.0-0.1); Basophils % 0.9 %; Eosinophils # 0.2 10^3/uL (0.0-0.8); Eosinophils % 2.6 %; Hematocrit 39.3 % (37-53); Lymphocytes % 38.7 %; Mean Corpuscular HGB Conc 33.1 g/dL (30-55); Mean Corpuscular Hemoglobin 32.6 pg (27-33); Mean Corpuscular Volume 98.5 fl (82-101); Mean Platelet Volume 9.1 fL (7.4-10.4); Monocytes # 0.8 10^3/uL (0.2-0.9); Monocytes % 10.7 %; Neutrophils # 3.66 10^3/uL (1.8-7.7); Nucleated Red Blood Cells % 0 %; Platelet Count 175 10^3/cmm (157-399); Red Blood Count 3.99 10^6/uL (3.85-5.65); Red Cell Distribution Width 13.2 % (12.1-15.1); White Blood Count 7.78 10^3/uL (3.29-11.43)
[2023-10-24 04:41] LABS: Anion Gap 11.5 (5-19); Blood Urea Nitrogen 16 mg/dL (8-23); Calcium 8.3 mg/dL (8.5-10.5); Carbon Dioxide 24 mmol/L (22-29); Chloride 108 mmol/L (98-107); Creatinine Clr Calc Pharmacy 71.7731; Glucose 93 mg/dL (65-115); Magnesium 2.2 mg/dL (1.7-2.3); Osmolality Calculated 289 mOsm/kg (285-295); Phosphorus 3.1 mg/dL (2.5-4.5); Potassium 4.5 mmol/L (3.5-5.1); Sodium 139 mmol/L (136-145)
[2023-10-24] MEDS: enoxaparin 80 mg/0.8 mL Syringe 70 MG SUBCUT (04:54)
[2023-10-24 05:48] VITALS: PULSE 71
--- NOTE | 2023-10-24 06:00 | USCV_ITS ---
Jesus Avilez Age: 83 Gender: M : 1940 Exam Date: 10/24/2023 08:17 Ordering Phys: Nataliia Miles MD Technologist: Heriberto Toth Exam Location: [facility] [place] Indication: afib BP: 123 / 70 HR: Rhythm: Sinus Technical Quality: Adequate MEASUREMENTS (Male / Female) Normal Values 2D ECHO LVOT Diameter 2.6 cm LV Ejection Fraction MOD 2C 63.3 % LV Ejection Fraction 2C AL 0.0 % Aorta at Sinotubular Diameter 2.9 cm IVC Diameter 1.3 cm M-MODE LA Ao Ratio MM 1.0 AV Cusp Separation MM 2.0 cm DOPPLER AV Peak Velocity 118.0 cm/s LVOT Peak Velocity 102.0 cm/s AV Area Cont Eq vti 4.7 cm squared AV Area Cont Eq pk 4.6 cm squared MV Peak Velocity 124.0 cm/s MV Area PHT 3.8 cm squared Mitral E to A Ratio 0.8 TR Peak Velocity 116.0 cm/s TR Peak Gradient 5.4 mmHg TR Mean Velocity 86.0 cm/s TR Mean Gradient 3.3 mmHg TR Velocity Time Integral 25.9 cm RV Ejection Time 0.3 s FINDINGS Left Ventricle Normal left ventricular size and systolic function, EF 63% .no regional wall motion abnormalities. Right Ventricle Normal right ventricular size and systolic function,. Right Atrium The right atrium is normal in size. Left Atrium The left atrium is normal in size. Mitral Valve Trace mitral valve regurgitation. Aortic Valve No gross abnormalities no Tricuspid Valve No gross abnormalities noted Pulmonic Valve No gross abnormalities noted Pericardium Normal pericardium without effusion. Aorta Normal ascending aorta dimension. IVC Normal inferior vena cava. CONCLUSIONS Normal left ventricular size and systolic function, EF 63%. No regional wall motion abnormalities. Trace mitral valve regurgitation. Normal cardiac chamber sizes. There is no pericardial effusion. There are no intracardiac masses. Compared to the study from 05/23/2023, there may not be a significant change Dr Jens Turner MD FAC (Electronically Signed) Final Date: 24 October 2023 11:12 S
[2023-10-24 07:04] VITALS: BP 123/70; PULSE 70; RESP 19; TEMP 36.6; O2SAT 96
[2023-10-24] MEDS: sennosides-docusate Tablet 1 TAB PO (08:36)
[2023-10-24] MEDS: phenytoin ER 100 mg Capsule PO (08:36)
[2023-10-24] MEDS: metoprolol tartrate 50 mg Tablet 100 MG PO (08:36)
[2023-10-24 11:06] VITALS: BP 108/68; PULSE 63; RESP 17; TEMP 36.9; O2SAT 97
--- NOTE | 2023-10-24 12:41 | P.DS_ITS ---
Discharge Providers Date of Admission: 10/23/23 17:08 Date of Discharge: October 24, 2023 Attending Provider at Admission: Nataliia Miles MD Attending Provider at Discharge: Jesus Francisco MD Primary Care Provider: Darell Jackson MD Diagnoses at Discharge Discharge Diagnosis (1) Atrial fibrillation with RVR: Status: Acute (2) Anxiety: Status: Acute Reason for Visit Reason for Visit: heart issues Hospital Course Hospital Course Jesus Avilez is a 83-year-old male with past medical history significant for paroxysmal atrial fibrillation, seizure disorder, and urethral stricture who p resented with palpitations, found to have paroxysmal atrial fibrillation with rapid ventricular rate. He was treated with Cardizem and initially rotated to increased dose of beta-joanna. He converted to normal sinus rhythm. Patient discharged on metoprolol tartrate 100 mg twice daily (prior dose 50 mg twice daily). Anticoagulation was discussed with patient declined. He has follow-up for evaluation for Watchman procedure next month as refilled. Patient TO follow-up with his primary care provider within 1 week for further care. Physical Exam Narrative: General: Patient is awake and alert. Head: Normocephalic. Atraumatic. EOM intact. Neck: No JVD. Cardiovascular: RRR. No gallops. No murmurs. No peripheral edema. Lungs: Clear to auscultation, no use of accessory muscles, no crackles or wheezes. Skin: No jaundice. No rashes. Abdomen: Normal bowel sounds, abdomen soft and nontender. Genito Urinary: Genital exam not performed since complaints not related. Rectal: Rectal exam not performed since no symptoms indicated blood loss. Extremities: No cyanosis or clubbing. Musculoskeletal: 5/5 strength, normal range of motion, no swollen or erythematous joints. Neurological: Moves all 4 extremities. No myoclonus. Discharge Data Studies Completed and Pending Completed Studies During Hospitalization Category Date Time Status CV. echo complete* [id number] Routine Ultrasound 10/24/23 06:00 Completed Laboratory Results WBC 7.78 10^3/uL (3.29-11.43) 10/24/23 03:25 RBC 3.99 10^6/uL (3.85-5.65) 10/24/23 03:25 Hgb 13.00 g/dL (11.27-16.99) 10/24/23 03:25 Hct 39.3 % (37-53) 10/24/23 03:25 MCV 98.5 fl (82-101) 10/24/23 03:25 MCH 32.6 pg (27-33) 10/24/23 03:25 MCHC 33.1 g/dL (30-55) 10/24/23 03:25 RDW 13.2 % (12.1-15.1) 10/24/23 03:25 Plt Count 175 10^3/cmm (157-399) 10/24/23 03:25 MPV 9.1 fL (7.4-10.4) 10/24/23 03:25 Neut % (Auto) 47.0 % 10/24/23 03:25 Lymph % (Auto) 38.7 % 10/24/23 03:25 Nolan % (Auto) 10.7 % 10/24/23 03:25 Eos % (Auto) 2.6 % 10/24/23 03:25 Baso % (Auto) 0.9 % 10/24/23 03:25 Neut # (Auto) 3.66 10^3/uL (1.8-7.7) 10/24/23 03:25 Lymph # (Auto) 3.0 10^3/uL (0.8-4.8) 10/24/23 03:25 Nolan # (Auto) 0.8 10^3/uL (0.2-0.9) 10/24/23 03:25 Eos # (Auto) 0.2 10^3/uL (0.0-0.8) 10/24/23 03:25 Baso # (Auto) 0.1 10^3/uL (0.0-0.1) 10/24/23 03:25 Nucleated RBC % (auto) 0 % 10/24/23 03:25 Nucleated RBCs # 0.0 /100WBC 10/24/23 03:25 D-Dimer 0.49 ug/mLFEU (0-0.59) 10/23/23 14:10 Sodium 139 mmol/L (136-145) 10/24/23 03:25 Potassium 4.5 mmol/L (3.5-5.1) 10/24/23 03:25 Chloride 108 mmol/L (98-107) H 02/24/24 03:25 Carbon Dioxide 24 mmol/L (22-29) 10/24/23 03:25 Anion Gap 11.5 (5-19) 10/24/23 03:25 BUN 16 mg/dL (8-23) 10/24/23 03:25 Creatinine 0.7 mg/dL (0.7-1.2) 10/24/23 03:25 GFR Calculation Not Reportable 10/24/23 03:25 Glucose 93 mg/dL (65-115) 10/24/23 03:25 Estimat Average Glucose 108 10/23/23 08:54 Hemoglobin A1c 5.4 % (4.0-6.0) 10/23/23 08:54 Calculated Osmolality 289 mOsm/kg (285-295) 10/24/23 03:25 Calcium 8.3 mg/dL (8.5-10.5) L 10/24/23 03:25 Phosphorus 3.1 mg/dL (2.5-4.5) 10/24/23 03:25 Magnesium 2.2 mg/dL (1.7-2.3) 10/24/23 03:25 Troponin T Baseline 11 ng/L (0-15) 10/23/23 14:08 Troponin T 120 Minute 10.13 ng/L (0-15) 10/23/23 16:31 Delta Troponin T -0.87 ABS# (0-10) L 10/23/23 16:31 Troponin T Hi Sens 6Hr 11.25 ng/L (0-15) 10/23/23 19:54 Troponin T Hi Sens 6Hr Delta 0.25 ng/L (0-12) 10/23/23 19:54 C-Reactive Protein 3.0 mg/L (0.0-4.9) 10/24/23 03:25 TSH 1.27 uIU/mL (0.27-4.20) 10/23/23 16:31 Vitals Last Vital Signs Temp 98.4 F 10/24/23 11:06 Pulse 63 10/24/23 11:06 Resp 17 10/24/23 11:06 BP 108/68 10/24/23 11:06 Pulse Ox 97 10/24/23 11:06 O2 Del Method Room Air 10/24/23 11:06 Discharge Plan Discharge Patient Disposition: Home Condition: Stable Prescriptions: New metoprolol tartrate 100 mg tablet 100 mg PO BID Qty: 60 1RF Continued vitamin B complex [B Complex-Vitamin B12] Tablet 1 tab PO QAM ascorbate calcium (vitamin C) 500 mg tablet 500 mg PO QAM flaxseed oil 1,000 mg capsule 1,000 mg PO QAM Rx Instructions: administer with a meal selenium 100 mcg tablet 100 mcg PO QAM melatonin 5 mg Tablet 5 mg PO BEDTIME omega-3 fatty acids 1,000 mg Capsule 1,000 mg PO QAM phenytoin sodium extended [Dilantin Extended] 100 mg capsule 100 mg PO BID Mike Mag Zinc Plus D3 333 mg-133 unit -133 mg-5 mg Tablet 1 tab PO BID PreserVision AREDS-2 250-90-40-1 mg Capsule 1 tab PO BID aspirin 325 mg tablet 325 mg PO QAM Discontinued metoprolol tartrate 50 mg tablet 50 mg PO BID Discharge Orders: Discharge Order (Routine); Ordered 10/24/23 Ordered By: Jesus Francisco Referrals: Darell Jackson MD [Primary Care Provider] - 4-7 days Discharge Diet: Advance as tolerated and Usual diet Discharge Activity: Resume usual activity and Increase activity as tolerated Patient Instructions: A-fib (Atrial Fibrillation) (DC), Opioid Safety Activity Restrictions/Additional Instructions: 1. Take medications as prescribed. 2. Follow-up with PCP within 1 week. 3. Keep cardiology appointment in [place] next month for watchman procedure evaluation. Discharge Attestations Time Spent in Discharge Care*: greater than 30 min Quality Metrics Clinical Quality Measures [ No reported AMI, CVA or VTE this stay] Coding Level of Care Code Acute Code for [facility] Diagnoses Atrial fibrillation with RVR I48.91 Anxiety F41.9
--- NOTE | 2023-10-24 14:13 | PC.NURSE ---
Discharge Note Patient discharged to home via POV accompanied by spouse. Discharge instructions reviewed with patient and/or equal opportunity representative. Mobile pharmacy medications and/or prescriptions provided. Belongings/home medications returned.
[2023-10-24 14:14] VITALS: BP 108/68; PULSE 63; RESP 17; TEMP 36.9; O2SAT 97
== END 2023-10-24 12:00 | disposition home or self-care (01) ==
LOC: ER 15:22 → CSU 15:42
PROVIDERS: Admitting Provider Internal Medicine; Emergency Provider Emergency Medicine; PCP Family Medicine; Visit Provider Internal Medicine
DX: I48.0 Paroxysmal atrial fibrillation (principal); F41.9 Anxiety disorder, unspecified; Z79.82 Long term (current) use of aspirin
CPT/HCPCS: 36415; 71045; 80048; 80053; 83036; 83690; 83735; 84100; 84443; 84484; 85025; 85378; 85610; 86140; 93005; 93306; 96361; 96365; 96366; 96372; 96374; 99285; G0378; J1650; J3490; J7030

== ENCOUNTER → 2023-12-03 10:00 | Outpatient (BNVA) | payer MEDICARE, SELFPAY | PROVIDERS: PCP Family Medicine; Visit Provider Psychiatry & Neurology Neurology | DX: R56.9 Unspecified convulsions (principal) | CPT/HCPCS: 99203 ==

== ENCOUNTER 2024-01-01 07:37 | Emergency (ER) | payer MEDICARE, SELFPAY ==
[2024-01-01 07:43] VITALS: BP 117/61; PULSE 64; RESP 14; TEMP 36.8; O2SAT 95
--- NOTE | 2024-01-01 07:45 | XR_ITS ---
WS: [id number] XR foot RT min 3V* [id number] REASON FOR EXAM: foor pain FINDINGS: No fracture or focal bone lesion. Joint spaces of the right forefoot, midfoot, and hindfoot are intact and relatively well preserved. No soft tissue abnormality. XR/XR foot RT min 3V* [id number] IMPRESSION: No acute abnormality.
[2024-01-01 07:55] VITALS: BP 117/61; PULSE 63; O2SAT 96
--- NOTE | 2024-01-01 08:05 | XR_ITS ---
WS: [id number] XR ankle LT min 3V* [id number] REASON FOR EXAM: pain FINDINGS: No fracture or focal bone lesion. Joint spaces of the left ankle are intact and well preserved. There may be some mild soft tissue swelling around the ankle joint. No focal soft tissue abnormality. XR/XR ankle LT min 3V* [id number] IMPRESSION: Mild soft tissue swelling about the ankle joint without underlying bone or join t abnormality.
--- NOTE | 2024-01-01 08:07 | ED_ITS ---
HPI - Extremity Problem General: Chief complaint: Extremity Problem,Nontraumatic Stated complaint: Right foot pain Time Seen by Provider: 01/01/24 07:43 Source: patient Mode of arrival: ambulatory History of Present Illness: 83-year-old male presents emergency room states he did some yard work yesterday and now has some pain in the lateral aspect of his right foot and ankle no injury. No direct blow or crushing below. He did not twisted. He is on Plavix. No history of gout no significant swelling. He has been able to ambulate on it. MD Complaint: extremity pain Onset (ago): hour(s) Pain Consistency: constant Location: right (Foot and ankle) Radiation: distal Relieving factors: nothing Exacerbating factors: nothing Associated symptoms: Deny arthralgias, chest pain, fever(s), myalgias, rash or short of breath Review of Systems Const: Denies: fever(s) or chills Card: Denies: chest pain Musc: Reports: extremity pain and joint pain Skin/Breast: Denies: rash PFSH ED PFSH: Medical History Atrial fibrillation with RVR Anxiety Atrial fibrillation with rapid ventricular response Atrial fibrillation, new onset Urethral stricture Lower urinary tract symptoms (LUTS) Surgical History Hx of tonsillectomy H/O arthroscopy of knee left History of carpal tunnel release left H/O rotator cuff surgery left Family History Father , at age 63 Cancer tongue Mother , at age 64 Lung disease Social History Smoking and tobacco/nicotine status: never used tobacco/nicotine Alcohol intake: current Alcohol intake frequency: 0-2 Drinks per Day Marital status: Current occupational status: retired Physical Exam Narrative: EXAM NARRATIVE: Examination of right ankle dorsalis pedis pulse and posterior tibialis pulse strong and bounding. Sensation normal good capillary refill no signs of cyanosis no significant swelling manipulation of the toes metatarsals and the metatarsal tarsal joints did not elicit any pain. He has some mild discomfort with dorsiflexion and he refers to the proximal portions of the fourth and fifth metatarsals but cannot reproduce with palpation or passive range of motion in that area. Course Vital Signs: Vital signs: Vital Signs Temperature 98.3 F 01/01/24 07:43 Pulse Rate 63 01/01/24 07:55 Respiratory Rate 14 01/01/24 07:43 Blood Pressure 117/61 01/01/24 07:55 Pulse Oximetry 96 01/01/24 07:55 Oxygen Delivery Me thod Room Air 01/01/24 07:55 MDM - Extremity (Nontraumatic) Medical Decision Making X-ray of the foot and ankle unremarkable no acute fractures. Discharge home likely tendon soft tissue will start on anti-inflammatories follow-up with primary care or podiatry if not improving Medical Records I reviewed the patient's medical records. Lab Data I reviewed the patient's lab results. Radiology Impressions Foot X-Ray 01/01/24 07:45 IMPRESSION: No acute abnormality. XR interpretation done by ED provider, pending radiology final review Discharge Plan Discharge Patient Disposition: Home Clinical Impression: Foot pain, right Condition: Stable Prescriptions: New diclofenac sodium 75 mg tablet,delayed release (DR/EC) 75 mg PO Q12H PRN (Reason: pain) Qty: 20 0RF No Action vitamin B complex [B Complex-Vitamin B12] Tablet 1 tab PO QAM ascorbate calcium (vitamin C) 500 mg tablet 500 mg PO QAM flaxseed oil 1,000 mg capsule 1,000 mg PO QAM Rx Instructions: administer with a meal selenium 100 mcg tablet 100 mcg PO QAM clopidogrel 75 mg tablet PO doxycycline hyclate 100 mg tablet PO melatonin 5 mg Tablet 5 mg PO BEDTIME omega-3 fatty acids 1,000 mg Capsule 1,000 mg PO QAM phenytoin sodium extended [Dilantin Extended] 100 mg capsule 100 mg PO BID Mike Mag Zinc Plus D3 333 mg-133 unit -133 mg-5 mg Tablet 1 tab PO BID PreserVision AREDS-2 250-90-40-1 mg Capsule 1 tab PO BID aspirin 325 mg tablet 325 mg PO QAM metoprolol tartrate 100 mg tablet 100 mg PO BID Qty: 60 1RF Discharge Orders: Discharge ED (Routine); Ordered 01/01/24 Ordered By: Brett Engel Referrals: Darell Jackson MD [Primary Care Provider] - Discharge Diet: Usual diet Discharge Activity: Increase activity as tolerated Patient Instructions: Opioid Safety, Pain Management Activity Restrictions/Additional Instructions: Thank you for choosing [facility] for your healthcare needs today. Please realize this is an emergency room and that we are providing you with a medical screening exam and this may not be complete and all inclusive of all the testing and or work up that you may need to determine your ailment or severity of your illness. It is very important that you follow up as instructed or that you return to the Emergency Department should you have concerns or if your condition changes or worsens in any way. You were seen today for right foot pain. 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
[2024-01-01 08:29] VITALS: BP 117/61; PULSE 63; RESP 14; TEMP 36.8; O2SAT 96
== END 2024-01-01 08:29 | disposition home or self-care (01) ==
PROVIDERS: Emergency Provider Family Medicine; PCP Family Medicine
DX: M79.671 Pain in right foot (principal); Z79.02 Long term (current) use of antithrombotics/antiplatelets; Z79.82 Long term (current) use of aspirin
CPT/HCPCS: 73610; 73630; 99283

== ENCOUNTER 2024-02-02 00:26 | Emergency (ER) | payer MEDICARE, SELFPAY ==
[2024-02-02 00:27] VITALS: BP 132/76; PULSE 92; RESP 16; TEMP 36.5; O2SAT 97
--- NOTE | 2024-02-02 00:32 | ECG_ITS ---
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 Measurements Intervals [place] Rate: 90 P: 0 [place]: 0 QRS: 8 QRSD: 91 T: 44 QT: 363 QTc: 445 Interpretive Statements ATRIAL FIBRILLATION NONSPECIFIC T-WAVE ABNORMALITY ABNORMAL RHYTHM ECG Compared to ECG 10/23/2023 15:56:35 T-wave abnormality now present Sinus rhythm no longer present Electronically Signed On 02-02-2024 7:28:05 CDT by Naga Celis M.D. [id number]
[2024-02-02 01:42] VITALS: BP 117/61; PULSE 75; RESP 15; O2SAT 96
[2024-02-02 01:59] LABS: Basophils # 0.1 10^3/uL (0.0-0.1); Eosinophils # 0.2 10^3/uL (0.0-0.8); Eosinophils % 3.2 %; Hematocrit 41.1 % (37-53); Lymphocytes # 2.1 10^3/uL (0.8-4.8); Lymphocytes % 30.8 %; Mean Corpuscular HGB Conc 33.6 g/dL (30-55); Mean Corpuscular Hemoglobin 32.7 pg (27-33); Mean Corpuscular Volume 97.4 fl (82-101); Mean Platelet Volume 8.8 fL (7.4-10.4); Monocytes # 0.8 10^3/uL (0.2-0.9); Monocytes % 11.2 %; Neutrophils # 3.73 10^3/uL (1.8-7.7); Neutrophils % 53.7 %; Nucleated Red Blood Cells % 0 %; Platelet Count 198 10^3/cmm (157-399); Red Blood Count 4.22 10^6/uL (3.85-5.65); Red Cell Distribution Width 12.9 % (12.1-15.1); White Blood Count 6.95 10^3/uL (3.29-11.43)
--- NOTE | 2024-02-02 02:13 | ED_ITS ---
HPI - Arrhythmia/Palpitations 2 General: Chief Complaint: Arrhythmia/Palpitations Stated Complaint: Possible A Fib Time Seen by Provider: 02/02/24 01:30 History of Present Illness: 83-year-old man with a history of atrial fibrillation who is currently on Plavix and had a watchman placed as he could not tolerate Eliquis. Interacted with his Dilantin. He presents to the emergency room tonight with palpitations. Said he was feeling little anxious and was feeling his heartbeat and his heart rate got up to 101 when it normally runs around 70. No other symptoms. No chest pain. No cough. No abdominal pain. No nausea or vomiting. No altered mental status. No focal motor deficits. No lower extremity swelling. No fever. Review of Systems 2 Narrative: Constitutional symptoms: Negative except as documented in HPI. Skin symptoms: Negative except as documented in HPI. Eye symptoms: Negative except as documented in HPI. ENMT symptoms: Negative except as documented in HPI. Respiratory symptoms: Negative except as documented in HPI. Cardiovascular symptoms: Negative except as documented in HPI. Gastrointestinal symptoms: Negative except as documented in HPI. Genitourinary symptoms: Negative except as documented in HPI. Musculoskeletal symptoms: Negative except as documented in HPI. Neurologic symptoms: Negative except as documented in HPI. Psychiatric symptoms: Negative except as documented in HPI. Endocrine symptoms: Negative except as documented in HPI. PFSH ED 2 PFSH: Medical History Atrial fibrillation with RVR Anxiety Atrial fibrillation with rapid ventricular response Atrial fibrillation, new onset Urethral stricture Lower urinary tract symptoms (LUTS) Surgical History Hx of tonsillectomy H/O arthroscopy of knee left History of carpal tunnel release left H/O rotator cuff surgery left Family History Father , at age 63 Cancer tongue Mother , at age 64 Lung disease Social History Smoking and tobacco/nicotine status: never used tobacco/nicotine Alcohol intake: current Alcohol intake frequency: 0-2 Drinks per Day Marital status: Current occupational status: retired Physical Exam 2 Narrative: EXAM NARRATIVE: General: Alert, no acute distress. Skin: Warm, dry. Head: Normocephalic, atraumatic. Neck: Supple, trachea midline. Eye: Extraocular movements are intact. Ears, nose, mouth and throat: mucosa moist. Cardiovascular: Irregularly irregular, Normal peripheral perfusion. Respiratory: Lungs are clear to auscultation, respirations are non-labored, breath sounds are equal, Symmetrical chest wall expansion. Gastrointestinal: Soft, Nontender, Non distended, Normal bowel sounds. Musculoskeletal: Normal ROM, no deformity. Neurological: Alert and oriented, No focal neurological deficit observed. Psychiatric: Cooperative, appropriate mood & affect. Course 2 Vital Signs: Vital signs: Vital Signs Temperature 97.7 F 02/02/24 00:27 Pulse Rate 75 02/02/24 01:42 Respiratory Rate 15 02/02/24 01:42 Blood Pressure 117/61 02/02/24 01:42 Pulse Oximetry 96 02/02/24 01:42 Oxygen Delivery Me thod Room Air 02/02/24 01:42 MDM - Arrhythmia/Palpitations Medical Decision Making Medical decision making: Differential diagnosis including but not limited to and based on the above HPI, review of systems and physical exam: for patient with palpitations: atrial fibrillation with rapid ventricular response. ventricular tachycardia. sinus tachycardia. PVCs. also concern for underlying issues causing tachycardia. Infection, electrolyte abnormalities and thyroid issues Orders placed to evaluate differential diagnosis based on the above differential, HPI and physical exam EKG: Time 0032 rate 90. Atrial fibrillation with controlled rate, No ST-T changes, no ectopy, This was reviewed and interpreted by myself the ER physician at 0037 Lab Review: Laboratory results were reviewed and interpreted by myself the emergency room physician. Lab work is unremarkable. No electrolyte abnormalities. No leukocytosis. I reviewed the patient's medical record. Reexamination: Rate has remained controlled here. Recommend he follow-up with his primary care provider and return to the emergency room if his heart rate becomes uncontrolled. Assessment and plan: Atrial fibrillation -Patient has known atrial fibrillation his rate has been controlled here. - Discharged home - Discussed plan with patient. Answered any questions. - Evaluation and treatment of this problem were appropriate in the emergency setting. Lab Data 02/02/24 01:53 02/02/24 01:53 Laboratory Results WBC 6.95 10^3/uL (3.29-11.43) 02/02/24 01:53 RBC 4.22 10^6/uL (3.85-5.65) 02/02/24 01:53 Hgb 13.80 g/dL (11.27-16.99) 02/02/24 01:53 Hct 41.1 % (37-53) 02/02/24 01:53 MCV 97.4 fl (82-101) 02/02/24 01:53 MCH 32.7 pg (27-33) 02/02/24 01:53 MCHC 33.6 g/dL (30-55) 02/02/24 01:53 RDW 12.9 % (12.1-15.1) 02/02/24 01:53 Plt Count 198 10^3/cmm (157-399) 02/02/24 01:53 MPV 8.8 fL (7.4-10.4) 02/02/24 01:53 Neut % (Auto) 53.7 % 02/02/24 01:53 Lymph % (Auto) 30.8 % 02/02/24 01:53 [place] % (Auto) 11.2 % 02/02/24 01:53 Eos % (Auto) 3.2 % 02/02/24 01:53 Baso % (Auto) 1.0 % 02/02/24 01:53 Neut # (Auto) 3.73 10^3/uL (1.8-7.7) 02/02/24 01:53 Lymph # (Auto) 2.1 10^3/uL (0.8-4.8) 02/02/24 01:53 [place] # (Auto) 0.8 10^3/uL (0.2-0.9) 02/02/24 01:53 Eos # (Auto) 0.2 10^3/uL (0.0-0.8) 02/02/24 01:53 Baso # (Auto) 0.1 10^3/uL (0.0-0.1) 02/02/24 01:53 Nucleated RBC % (auto) 0 % 02/02/24 01:53 Nucleated RBCs # 0.0 /100WBC 02/02/24 01:53 Sodium 137 mmol/L (136-145) 02/02/24 01:53 Potassium 4.3 mmol/L (3.5-5.1) 02/02/24 01:53 Chloride 104 mmol/L (98-107) 02/02/24 01:53 Carbon Dioxide 23 mmol/L (22-29) 02/02/24 01:53 Anion Gap 14.3 (5-19) 02/02/24 01:53 BUN 20 mg/dL (8-23) 02/02/24 01:53 Creatinine 0.7 mg/dL (0.7-1.2) 02/02/24 01:53 GFR Calculation Not Reportable 02/02/24 01:53 Glucose 114 mg/dL (65-115) 02/02/24 01:53 Calculated Osmolality 287 mOsm/kg (285-295) 02/02/24 01:53 Calcium 8.8 mg/dL (8.5-10.5) 02/02/24 01:53 Total Bilirubin 0.2 mg/dL (0.15-1.2) 02/02/24 01:53 AST 24 U/L (0-40) 02/02/24 01:53 ALT 17 U/L (0-41) 02/02/24 01:53 Alkaline Phosphatase 128 U/L (40-130) 02/02/24 01:53 Troponin T Baseline 13 ng/L (0-15) 02/02/24 01:53 Total Protein 6.4 g/dL (6.6-8.7) L 02/02/24 01:53 Albumin 4.1 g/dL (3.5-5.2) 02/02/24 01:53 Globulin 2.3 g/dL (1.3-4.6) 02/02/24 01:53 No radiology studies performed this visit Discharge Plan Discharge Patient Disposition: Home Clinical Impression: Atrial fibrillation, Dehydration, mild Condition: Stable Prescriptions: No Action ascorbate calcium (vitamin C) 500 mg tablet 500 mg PO QAM flaxseed oil 1,000 mg capsule 1,000 mg PO QAM Rx Instructions: administer with a meal selenium 100 mcg tablet 100 mcg PO QAM clopidogrel 75 mg tablet 75 mg PO DAILY doxycycline hyclate 100 mg tablet 100 mg PO DAILY PRN (Reason: eye infection) melatonin 5 mg Tablet 5 mg PO BEDTIME omega-3 fatty acids 1,000 mg Capsule 1,000 mg PO QAM phenytoin sodium extended [Dilantin Extended] 100 mg capsule 100 mg PO BID Mike Mag Zinc Plus D3 333 mg-133 unit -133 mg-5 mg Tablet 1 tab PO BID PreserVision AREDS-2 250-90-40-1 mg Capsule 1 tab PO BID metoprolol tartrate 100 mg tablet 100 mg PO BID Qty: 60 1RF diclofenac sodium 75 mg tablet,delayed release (DR/EC) 75 mg PO Q12H PRN (Reason: pain) Qty: 20 0RF Aspir-81 81 mg Tablet,Delayed Release (Dr/Ec) 81 mg PO DAILY vitamin B complex Tablet 1 tab PO DAILY Discharge Orders: Discharge ED (Routine); Ordered 02/02/24 Ordered By: Kaela Denny Referrals: Darell Jackson MD [Primary Care Provider] - 1-3 days Discharge Diet: Usual diet Discharge Activity: Resume usual activity Patient Instructions: A-fib (Atrial Fibrillation) (ED) Activity Restrictions/Additional Instructions: Thank you for choosing [facility] for your healthcare needs today. Please realize this is an emergency room and that we are providing you with a medical screening exam and this may not be complete and all inclusive of all the testing and or work up that you may need to determine your ailment or severity of your illness. You have been screened and evaluated and felt safe for discharge. Health conditions do change or evolve sometimes and as such it is important that you follow up with your Primary Doctor to be re checked, 3-5 days is a general good time frame for follow up. 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
[2024-02-02 02:17] LABS: Troponin(5th) Baseline 13 ng/L (0-15)
[2024-02-02 02:18] LABS: Alanine Aminotransferase 17 U/L (0-41); Albumin Level 4.1 g/dL (3.5-5.2); Alkaline Phosphatase 128 U/L (40-130); Aspartate Amino Transferase 24 U/L (0-40); Blood Urea Nitrogen 20 mg/dL (8-23); Calcium 8.8 mg/dL (8.5-10.5); Carbon Dioxide 23 mmol/L (22-29); Chloride 104 mmol/L (98-107); Creatinine Clr Calc Pharmacy 71.7731; Globulin 2.3 g/dL (1.3-4.6); Glucose 114 mg/dL (65-115); Osmolality Calculated 287 mOsm/kg (285-295); Sodium 137 mmol/L (136-145); Total Bilirubin 0.2 mg/dL (0.15-1.2); Total Protein 6.4 g/dL (6.6-8.7)
[2024-02-02 02:20] LABS: Anion Gap 14.3 (5-19); Potassium 4.3 mmol/L (3.5-5.1)
[2024-02-02 02:51] VITALS: BP 96/59; PULSE 72; RESP 18; O2SAT 98
[2024-02-02] MEDS: sodium chloride 0.9% 500 ML 999 ML IV (02:52)
[2024-02-02 03:00] VITALS: BP 97/68; PULSE 75; RESP 25; O2SAT 97
[2024-02-02 03:50] VITALS: BP 125/69; PULSE 73; RESP 20; O2SAT 96
== END 2024-02-02 03:51 | disposition home or self-care (01) ==
PROVIDERS: Emergency Provider Emergency Medicine; PCP Family Medicine
DX: I48.91 Unspecified atrial fibrillation (principal); E86.0 Dehydration; Z79.02 Long term (current) use of antithrombotics/antiplatelets; Z79.82 Long term (current) use of aspirin
CPT/HCPCS: 80053; 84484; 85025; 93005; 99284; J7040

== ENCOUNTER 2024-03-26 03:04 | Emergency (ER) | payer MEDICARE, SELFPAY ==
[2024-03-26 03:10] VITALS: BP 130/84; PULSE 87; RESP 20; TEMP 36.6; O2SAT 99; BMI 24.3
[2024-03-26 03:13] VITALS: BP 110/61; PULSE 83; RESP 15; TEMP 36.6; O2SAT 97
--- NOTE | 2024-03-26 03:13 | ECG_ITS ---
[facility] Test Date: 2024-03-26 Pat Name: Jesus Avilez Department: Room: Gender: Male Scientific Associate: : 1940 Requested By: Robbie Lee Order Number: [id number] Yvette MD: Norberto Lozoya M.D. Measurements Intervals [place] Rate: 88 P: 0 [place]: 0 QRS: 0 QRSD: 89 T: 70 QT: 334 QTc: 406 Interpretive Statements Atrial fibrillation with controlled ventricular rate NONSPECIFIC T-WAVE ABNORMALITY ABNORMAL RHYTHM ECG Compared to ECG 02/02/2024 00:32:27 No significant change Electronically Signed On 03-26-2024 16:46:35 CDT by Norberto Lozoya M.D. [id number]
--- NOTE | 2024-03-26 03:16 | XRR_ITS ---
PROCEDURE INFORMATION: Exam: XR Chest Exam date and time: 03/26/2024 3:24 AM Age: 83 years old Clinical indication: Prior surgery; Surgery date: 6+ months; Surgery type: Watchman; Patient HX: C/O palpitations. History of afib. TECHNIQUE: Imaging protocol: Radiologic exam of the chest. Views: 1 view. COMPARISON: CR XR chest 1V portable [id number] 10/23/2023 9:03 AM FINDINGS: Tubes, catheters and devices: Postprocedural change of the cardiomediastinal silhouette (Watchman device). Lungs: Unremarkable. No consolidation. Pleural spaces: Unremarkable. No pleural effusion. No pneumothorax. Heart/Mediastinum: Unremarkable. No cardiomegaly. Vasculature: Atherosclerotic disease of the aortic arch. Bones/joints: Diffuse degenerative change of the visualized osseous structures. XR/XR chest 1V portable [id number] IMPRESSION: No acute cardiopulmonary findings.
[2024-03-26 03:28] LABS: Basophils # 0.1 10^3/uL (0.0-0.1); Basophils % 0.8 %; Eosinophils # 0.2 10^3/uL (0.0-0.8); Eosinophils % 2.5 %; Hematocrit 42.1 % (37-53); Lymphocytes # 2.3 10^3/uL (0.8-4.8); Lymphocytes % 30.6 %; Mean Corpuscular HGB Conc 33.7 g/dL (30-55); Mean Corpuscular Hemoglobin 32.9 pg (27-33); Mean Corpuscular Volume 97.5 fl (82-101); Mean Platelet Volume 8.6 fL (7.4-10.4); Monocytes # 0.9 10^3/uL (0.2-0.9); Monocytes % 11.2 %; Neutrophils # 4.14 10^3/uL (1.8-7.7); Neutrophils % 54.6 %; Nucleated Red Blood Cells % 0 %; Platelet Count 207 10^3/cmm (157-399); Red Blood Count 4.32 10^6/uL (3.85-5.65); Red Cell Distribution Width 13.1 % (12.1-15.1); White Blood Count 7.58 10^3/uL (3.29-11.43)
[2024-03-26 03:30] VITALS: BP 125/69
--- NOTE | 2024-03-26 03:41 | W.ED.ARRPALP ---
HPI - Arrhythmia/Palpitations General: Chief Complaint: Arrhythmia/Palpitations Stated Complaint: Afib acting up Time Seen by Provider: 03/26/24 03:11 History of Present Illness: 83-year-old gentleman with a history of atrial fibrillation. He presents with palpitations this morning. He notes that his heart rate was up and down. He is not having chest pain. He is not overly short of breath. He was concerned about his heart rate. He notes that his heart rate usually below 70. His heart rate was up to 100 at rest at home. He denies recent illness. Denies fever. No vomiting or diarrhea. No cough or leg swelling. PFSH ED PFSH: Medical History Atrial fibrillation with RVR Anxiety Atrial fibrillation with rapid ventricular response Atrial fibrillation, new onset Urethral stricture Lower urinary tract symptoms (LUTS) Surgical History Hx of tonsillectomy H/O arthroscopy of knee left History of carpal tunnel release left H/O rotator cuff surgery left Family History Father , at age 63 Cancer tongue Mother , at age 64 Lung disease Social History Smoking and tobacco/nicotine status: never used tobacco/nicotine Alcohol intake: current Alcohol intake frequency: 0-2 Drinks per Day Marital status: Current occupational status: retired Physical Exam Const: COMMON NORMALS: no acute distress GENERAL APPEARANCE: cooperative; not ill appearing and not frail appearing HENMT: COMMON NORMALS: normocephalic, atraumatic and Normal external nose present HEAD & SCALP: normocephalic and atraumatic FACE & SINUS: normal facial exam and face symmetric NOSE: Normal external nose present Eye: COMMON NORMALS: Equal, round and reactive pupils present and EOMs intact bilaterally PUPIL: Yes Equal, round and reactive pupils present Neck/C-Spine: GENERAL: Yes trachea midline Chest: CHEST: Yes Symmetrical chest wall rise Resp: COMMON NORMALS: normal respiratory effort, No retractions, No use of accessory muscles and clear to auscultation bilaterally AUSCULTATION: clear to auscultation bilaterally Cardio: COMMON NORMALS: regular rate RATE: regular rate RHYTHM: abnormal rhythm irregularly irregular GI: COMMON NORMALS: Normal to inspection, nondistended, normoactive bowel sounds present Extremity: COMMON NORMALS: no pedal edema Neuro: BEVERLEY COMA SCALE: document GCS findings Beverley coma scale eye opening: Spontaneous [place] coma scale verbal response: Orientated [place] coma scale motor response: Obey commands Beverley coma scale total score: 15 SENSORY EXAM: Yes extremities (intact) Psych: COMMON NORMALS: speech normal SPEECH: Yes normal speech Skin: COMMON NORMALS: no rashes or lesions noted GENERAL SKIN EXAM: no rashes or lesions noted Course Vital Signs: Vital signs: Vital Signs Temperature 97.8 F 03/26/24 04:54 Pulse Rate 71 03/26/24 04:54 Respiratory Rate 16 03/26/24 04:54 Blood Pressure 105/66 03/26/24 04:54 Pulse Oximetry 97 03/26/24 04:54 Oxygen Delivery Me thod Room Air 03/26/24 03:13 MDM - Arrhythmia/Palpitations Medical Decision Making Patient presents with a relatively well-controlled heart rate from 70-100. He is given 5 mg of IV diltiazem, with improvement in his rate, although he still irregular. EKG shows atrial flutter. No acute ST wave changes. Rate is 90. His heart rate is significantly improved after administrations of 5 milligrams of intravenous diltiazem. he is asymptomatic at this point. His laboratory including CBC BMP liver enzymes, TSH, troponin, and BNP are not remarkable. As chest X-ray is non acute. With control of his rate, asymptomatic status at this point, he'll be allowed discharge period to return for any return of symptoms. Lab Data 03/26/24 03:22 03/26/24 03:22 Radiology Impressions Chest X-Ray 03/26/24 03:16 IMPRESSION: No acute cardiopulmonary findings. Laboratory Results WBC 7.58 10^3/uL (3.29-11.43) 03/26/24 03:22 RBC 4.32 10^6/uL (3.85-5.65) 03/26/24 03:22 Hgb 14.20 g/dL (11.27-16.99) 03/26/24 03:22 Hct 42.1 % (37-53) 03/26/24 03:22 MCV 97.5 fl (82-101) 03/26/24 03:22 MCH 32.9 pg (27-33) 03/26/24 03:22 MCHC 33.7 g/dL (30-55) 03/26/24 03:22 RDW 13.1 % (12.1-15.1) 03/26/24 03:22 Plt Count 207 10^3/cmm (157-399) 03/26/24 03:22 MPV 8.6 fL (7.4-10.4) 03/26/24 03:22 Neut % (Auto) 54.6 % 03/26/24 03:22 Lymph % (Auto) 30.6 % 03/26/24 03:22 [place] % (Auto) 11.2 % 03/26/24 03:22 Eos % (Auto) 2.5 % 03/26/24 03:22 Baso % (Auto) 0.8 % 03/26/24 03:22 Neut # (Auto) 4.14 10^3/uL (1.8-7.7) 03/26/24 03:22 Lymph # (Auto) 2.3 10^3/uL (0.8-4.8) 03/26/24 03:22 [place] # (Auto) 0.9 10^3/uL (0.2-0.9) 03/26/24 03:22 Eos # (Auto) 0.2 10^3/uL (0.0-0.8) 03/26/24 03:22 Baso # (Auto) 0.1 10^3/uL (0.0-0.1) 03/26/24 03:22 Nucleated RBC % (auto) 0 % 03/26/24 03:22 Nucleated RBCs # 0.0 /100WBC 03/26/24 03:22 Sodium 139 mmol/L (136-145) 03/26/24 03:22 Potassium 4.2 mmol/L (3.5-5.1) 03/26/24 03:22 Chloride 105 mmol/L (98-107) 03/26/24 03:22 Carbon Dioxide 25 mmol/L (22-29) 03/26/24 03:22 Anion Gap 13.2 (5-19) 03/26/24 03:22 BUN 18 mg/dL (8-23) 03/26/24 03:22 Creatinine 0.7 mg/dL (0.7-1.2) 03/26/24 03:22 GFR Calculation Not Reportable 03/26/24 03:22 Glucose 106 mg/dL (65-115) 03/26/24 03:22 Calculated Osmolality 290 mOsm/kg (285-295) 03/26/24 03:22 Calcium 8.9 mg/dL (8.5-10.5) 03/26/24 03:22 Magnesium 2.3 mg/dL (1.7-2.3) 03/26/24 03:22 Troponin T Baseline 14 ng/L (0-15) 03/26/24 03:22 NT-Pro-B Natriuret Pep 497 pg/mL (0-450) H 03/26/24 03:22 TSH 2.00 uIU/mL (0.27-4.20) 03/26/24 03:22 All radiology interpretation(s) finalized by discharge Discharge Plan Discharge Patient Disposition: Home Clinical Impression: Atrial fibrillation Condition: Stable Prescriptions: No Action ascorbate calcium (vitamin C) 500 mg tablet 500 mg PO QAM flaxseed oil 1,000 mg capsule 1,000 mg PO QAM Rx Instructions: administer with a meal selenium 100 mcg tablet 100 mcg PO QAM clopidogrel 75 mg tablet 75 mg PO DAILY doxycycline hyclate 100 mg tablet 100 mg PO DAILY PRN (Reason: eye infection) melatonin 5 mg Tablet 5 mg PO BEDTIME omega-3 fatty acids 1,000 mg Capsule 1,000 mg PO QAM phenytoin sodium extended [Dilantin Extended] 100 mg capsule 100 mg PO BID Mike Mag Zinc Plus D3 333 mg-133 unit -133 mg-5 mg Tablet 1 tab PO BID PreserVision AREDS-2 250-90-40-1 mg Capsule 1 tab PO BID metoprolol tartrate 100 mg tablet 100 mg PO BID Qty: 60 1RF diclofenac sodium 75 mg tablet,delayed release (DR/EC) 75 mg PO Q12H PRN (Reason: pain) Qty: 20 0RF Aspir-81 81 mg Tablet,Delayed Release (Dr/Ec) 81 mg PO DAILY vitamin B complex Tablet 1 tab PO DAILY cefdinir 300 mg capsule 300 mg PO BID Qty: 14 0RF Discharge Orders: Discharge ED (Routine); Ordered 03/26/24 Ordered By: Robbie Somers Referrals: Darell Jackson MD [Primary Care Provider] - 1-3 days Patient Instructions: A-fib (Atrial Fibrillation) (ED), Opioid Safety, Pain Management Activity Restrictions/Additional Instructions: Take your metoprolol when you get home, a bit early. Return for worsening palpitations, development of chest discomfort, shortness of breath, other concerning symptoms. See your doctor next week. Drink plenty of liquids for the next 24 hours. Coding Level of Care Code ED Virtual Assistant For [employer]vertis[employer] for [employer]
[2024-03-26 03:52] LABS: Troponin(5th) Baseline 14 ng/L (0-15)
[2024-03-26] MEDS: dilTIAZem 5 mg/mL SDV 5 mL IVP (03:59)
[2024-03-26 04:01] VITALS: BP 100/49; PULSE 88; RESP 16; O2SAT 98
[2024-03-26 04:03] LABS: Anion Gap 13.2 (5-19); Blood Urea Nitrogen 18 mg/dL (8-23); Calcium 8.9 mg/dL (8.5-10.5); Carbon Dioxide 25 mmol/L (22-29); Chloride 105 mmol/L (98-107); Creatinine Clr Calc Pharmacy 71.7731; Glucose 106 mg/dL (65-115); Magnesium 2.3 mg/dL (1.7-2.3); NT Pro B Type Natriuretic Pept 497 pg/mL (0-450); Osmolality Calculated 290 mOsm/kg (285-295); Potassium 4.2 mmol/L (3.5-5.1); Sodium 139 mmol/L (136-145)
[2024-03-26 04:53] VITALS: BP 105/66; PULSE 71; RESP 16; O2SAT 97
[2024-03-26 04:54] VITALS: BP 105/66; PULSE 71; RESP 16; TEMP 36.6; O2SAT 97
== END 2024-03-26 04:55 | disposition home or self-care (01) ==
PROVIDERS: Emergency Provider Emergency Medicine; PCP Family Medicine
DX: I48.91 Unspecified atrial fibrillation (principal); Z79.02 Long term (current) use of antithrombotics/antiplatelets; Z79.82 Long term (current) use of aspirin
CPT/HCPCS: 71045; 80048; 83735; 83880; 84443; 84484; 85025; 93005; 96374; 99285; J3490

== ENCOUNTER 2024-03-26 09:35 | Emergency (ER) | payer MEDICARE, SELFPAY ==
[2024-03-26 09:42] VITALS: BP 110/65; PULSE 80; RESP 19; TEMP 36.4; O2SAT 97; BMI 24.3
--- NOTE | 2024-03-26 09:52 | ECG_ITS ---
[facility] Test Date: 2024-03-26 Pat Name: Jesus Avilez Department: Room: Gender: Male Route Sales Representative: : 1940 Requested By: Brett Arita Order Number: [id number] Yvette MD: Norberto Lozoya M.D. Measurements Intervals [place] Rate: 93 P: 0 [place]: 0 QRS: 13 QRSD: 83 T: 65 QT: 323 QTc: 402 Interpretive Statements ATRIAL FIBRILLATION NONSPECIFIC T-WAVE ABNORMALITY ABNORMAL RHYTHM ECG Compared to ECG 03/26/2024 03:13:27 No significant change Electronically Signed On 03-26-2024 16:22:18 CDT by Norberto Lozoya M.D. [id number]
--- NOTE | 2024-03-26 09:52 | XRR_ITS ---
PROCEDURE INFORMATION: Exam: XR Chest Exam date and time: 03/26/2024 9:55 AM Age: 83 years old Clinical indication: Cough and dyspnea; Additional info: Dyspnea/cough TECHNIQUE: Imaging protocol: Radiologic exam of the chest. Views: 1 view. COMPARISON: CR (CHEST, ) 03/26/2024 3:24 AM FINDINGS: Lungs: Unremarkable. No consolidation. Pleural spaces: Unremarkable. No pleural effusion. No pneumothorax. Heart/Mediastinum: The heart size is within normal limits. 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 Bones/joints: Unremarkable. XR/XR chest 1V portable [id number] IMPRESSION: Stable appearance of the chest without acute abnormality
[2024-03-26 10:21] LABS: Basophils # 0.1 10^3/uL (0.0-0.1); Basophils % 0.9 %; Eosinophils # 0.1 10^3/uL (0.0-0.8); Eosinophils % 1.5 %; Lymphocytes # 1.6 10^3/uL (0.8-4.8); Lymphocytes % 27.7 %; Mean Corpuscular HGB Conc 33.9 g/dL (30-55); Mean Corpuscular Hemoglobin 33.2 pg (27-33); Mean Corpuscular Volume 97.9 fl (82-101); Mean Platelet Volume 8.5 fL (7.4-10.4); Monocytes # 0.6 10^3/uL (0.2-0.9); Monocytes % 9.4 %; Neutrophils # 3.52 10^3/uL (1.8-7.7); Neutrophils % 60.3 %; Nucleated Red Blood Cells % 0 %; Platelet Count 199 10^3/cmm (157-399); Red Blood Count 4.19 10^6/uL (3.85-5.65); Red Cell Distribution Width 13.1 % (12.1-15.1); White Blood Count 5.84 10^3/uL (3.29-11.43)
--- NOTE | 2024-03-26 10:30 | ED_ITS ---
HPI - Arrhythmia/Palpitations 2 General: Chief Complaint: Arrhythmia/Palpitations Stated Complaint: afib, irregular heatrate, slight chest pain Time Seen by Provider: 03/26/24 09:44 History of Present Illness: 83-year-old male presents to the emergen cy room complaining of irregular heart rate. Patient has a history of atrial fibrillation and he was in the last note his A-fib improved and he was discharged home he is on metoprolol to tartrate 100 mg twice daily he took his morning dose. He is also on clopidogrel he has a watchman placed because he was not able to take anticoagulation because of his Dilantin for seizures. This morning he had an episode his heart rate went up to 113 he presented back to the emergency room because of this by the time he arrived here his heart rate is back down well-controlled he is having no symptoms. Heart rate time I seen him was in the mid and upper 60s. Patient was here overnight he was given 5 mg of IV diltiazem which controlled his rate till he went home and took his metoprolol. Review of Systems 2 Const: Denies: fever(s) or chills Card: Denies: chest pain Resp: Denies: dyspnea GI: Denies: abdominal pain : Denies: dysuria, urinary frequency or urinary urgency Musc: Denies: neck pain or back pain Skin/Breast: Denies: rash PFSH ED 2 PFSH: Medical History Atrial fibrillation with RVR Anxiety Atrial fibrillation with rapid ventricular response Atrial fibrillation, new onset Urethral stricture Lower urinary tract symptoms (LUTS) Surgical History Hx of tonsillectomy H/O arthroscopy of knee left History of carpal tunnel release left H/O rotator cuff surgery left Family History Father , at age 63 Cancer tongue Mother , at age 64 Lung disease Social History Smoking and tobacco/nicotine status: never used tobacco/nicotine Alcohol intake: current Alcohol intake frequency: 0-2 Drinks per Day Marital status: Current occupational status: retired Physical Exam 2 Const: COMMON NORMALS: no acute distress GENERAL APPEARANCE: cooperative and comfortable ORIENTATION/CONSCIOUSNESS: Yes awake, Yes oriented to person, Yes oriented to place and Yes oriented to time HENMT: COMMON NORMALS: normocephalic, atraumatic and hearing grossly normal bilaterally HEAD & SCALP: normocephalic and atraumatic Resp: COMMON NORMALS: normal respiratory effort, No retractions, No use of accessory muscles and clear to auscultation bilaterally AUSCULTATION: clear to auscultation bilaterally Cardio: COMMON NORMALS: No murmurs present (Cardio) RATE: bradycardic R HYTHM: abnormal rhythm irregularly irregular GI: COMMON NORMALS: Soft to palpation and No hepatosplenomegaly present A USCULTATION: Yes normoactive bowel sounds PALPATION: Yes Soft to palpation, No Tenderness to palpation present (GI), No Guarding due to palpation present (GI) and Yes No hepatosplenomegaly present Extremity: COMMON NORMALS: normal to inspection, capillary refill normal, no clubbing, cyanosis or edema, no calf tenderness and no pedal edema Neuro: SENSORIUM/ORIENTATION: Yes oriented to person, Yes oriented to place and Yes oriented to time Skin: COMMON NORMALS: no rashes or lesions noted GENERAL SKIN EXAM: no rashes or lesions noted Course 2 Vital Signs: Vital signs: Vital Signs Temperature 97.6 F 03/26/24 09:42 Pulse Rate 58 L 03/26/24 12:34 Respiratory Rate 19 H 03/26/24 09:42 Blood Pressure 111/59 03/26/24 12:34 Pulse Oximetry 100 03/26/24 12:34 Oxygen Delivery Me thod Room Air 03/26/24 12:34 MDM - Arrhythmia/Palpitations Medical Decision Making Serial enzymes normal EKG shows A-fib with a controlled rate. Cardiac enzymes negative. Incidental finding of cystitis patient does self cath is probably the cause of it. Will start him on cefdinir until culture returns. 72-hour Holter monitor to monitor for breakthrough A-fib with RVR and follow-up with his primary care doctor Medical Records I reviewed the patient's medical records. Lab Data I reviewed the patient's lab results. 03/26/24 10:14 03/26/24 10:14 Radiology Impressions Chest X-Ray 03/26/24 09:52 IMPRESSION: Stable appearance of the chest without acute abnormality Laboratory Results WBC 5.84 10^3/uL (3.29-11.43) 03/26/24 10:14 RBC 4.19 10^6/uL (3.85-5.65) 03/26/24 10:14 Hgb 13.90 g/dL (11.27-16.99) 03/26/24 10:14 Hct 41.0 % (37-53) 03/26/24 10:14 MCV 97.9 fl (82-101) 03/26/24 10:14 MCH 33.2 pg (27-33) H 03/26/24 10:14 MCHC 33.9 g/dL (30-55) 03/26/24 10:14 RDW 13.1 % (12.1-15.1) 03/26/24 10:14 Plt Count 199 10^3/cmm (157-399) 03/26/24 10:14 MPV 8.5 fL (7.4-10.4) 03/26/24 10:14 Neut % (Auto) 60.3 % 03/26/24 10:14 Lymph % (Auto) 27.7 % 03/26/24 10:14 [place] % (Auto) 9.4 % 03/26/24 10:14 Eos % (Auto) 1.5 % 03/26/24 10:14 Baso % (Auto) 0.9 % 03/26/24 10:14 Neut # (Auto) 3.52 10^3/uL (1.8-7.7) 03/26/24 10:14 Lymph # (Auto) 1.6 10^3/uL (0.8-4.8) 03/26/24 10:14 [place] # (Auto) 0.6 10^3/uL (0.2-0.9) 03/26/24 10:14 Eos # (Auto) 0.1 10^3/uL (0.0-0.8) 03/26/24 10:14 Baso # (Auto) 0.1 10^3/uL (0.0-0.1) 03/26/24 10:14 Nucleated RBC % (auto) 0 % 03/26/24 10:14 Nucleated RBCs # 0.0 /100WBC 03/26/24 10:14 Sodium 138 mmol/L (136-145) 03/26/24 10:14 Potassium 4.5 mmol/L (3.5-5.1) 03/26/24 10:14 Chloride 106 mmol/L (98-107) 03/26/24 10:14 Carbon Dioxide 22 mmol/L (22-29) 03/26/24 10:14 Anion Gap 14.5 (5-19) 03/26/24 10:14 BUN 16 mg/dL (8-23) 03/26/24 10:14 Creatinine 0.7 mg/dL (0.7-1.2) 03/26/24 10:14 GFR Calculation Not Reportable 03/26/24 10:14 Glucose 151 mg/dL (65-115) H 03/26/24 10:14 Calculated Osmolality 290 mOsm/kg (285-295) 03/26/24 10:14 Calcium 8.5 mg/dL (8.5-10.5) 03/26/24 10:14 Total Bilirubin 0.3 mg/dL (0.15-1.2) 03/26/24 10:14 AST 19 U/L (0-40) 03/26/24 10:14 ALT 17 U/L (0-41) 03/26/24 10:14 Alkaline Phosphatase 121 U/L (40-130) 03/26/24 10:14 Troponin T Baseline 13 ng/L (0-15) 03/26/24 10:14 Troponin T 120 Minute 11.31 ng/L (0-15) 03/26/24 12:21 Delta Troponin T -1.69 ABS# (0-10) L 03/26/24 12:21 Total Protein 6.1 g/dL (6.6-8.7) L 03/26/24 10:14 Albumin 3.8 g/dL (3.5-5.2) 03/26/24 10:14 Globulin 2.3 g/dL (1.3-4.6) 03/26/24 10:14 Urine Color Yellow (Yellow) 03/26/24 11:29 Urine Appearance Slightly cloudy (CLEAR) 03/26/24 11:29 Urine pH 7 (5-7) 03/26/24 11:29 Ur Specific [place] 1.010 (1.005-1.030) 03/26/24 11:29 Urine Protein Neg (Negative) 03/26/24 11:29 Urine Glucose (UA) Norm (Normal) 03/26/24 11:29 Urine Ketones Negative (Negative) 03/26/24 11:29 Urine Blood Neg (Negative) 03/26/24 11:29 Urine Nitrate Negative (Negative) 03/26/24 11:29 Urine Bilirubin Neg (Negative) 03/26/24 11:29 Urine Urobilinogen Norm mg/dL (Negative) 03/26/24 11:29 Ur Leukocyte Esterase 2+ (Negative) H 03/26/24 11:29 Urine RBC None /hpf (0-2) 03/26/24 11:29 Urine WBC 40-55 /hpf (0-5) H 03/26/24 11:29 Ur Squamous Epith Cells None /hpf (0-5) 03/26/24 11:29 Amorphous Sediment Not Reportable 03/26/24 11:29 Urine Bacteria 1+ /hpf (NONE) H 03/26/24 11:29 Urine Mucus 1+ /hpf 03/26/24 11:29 All radiology interpretation(s) finalized by discharge Discharge Plan Discharge Patient Disposition: Home Clinical Impression: Atrial fibrillation, Neurogenic bladder, flaccid, Cystitis Condition: Stable Prescriptions: New cefdinir 300 mg capsule 300 mg PO BID Qty: 14 0RF No Action ascorbate calcium (vitamin C) 500 mg tablet 500 mg PO QAM flaxseed oil 1,000 mg capsule 1,000 mg PO QAM Rx Instructions: administer with a meal selenium 100 mcg tablet 100 mcg PO QAM clopidogrel 75 mg tablet 75 mg PO DAILY doxycycline hyclate 100 mg tablet 100 mg PO DAILY PRN (Reason: eye infection) melatonin 5 mg Tablet 5 mg PO BEDTIME omega-3 fatty acids 1,000 mg Capsule 1,000 mg PO QAM phenytoin sodium extended [Dilantin Extended] 100 mg capsule 100 mg PO BID Mike Mag Zinc Plus D3 333 mg-133 unit -133 mg-5 mg Tablet 1 tab PO BID PreserVision AREDS-2 250-90-40-1 mg Capsule 1 tab PO BID metoprolol tartrate 100 mg tablet 100 mg PO BID Qty: 60 1RF diclofenac sodium 75 mg tablet,delayed release (DR/EC) 75 mg PO Q12H PRN (Reason: pain) Qty: 20 0RF Aspir-81 81 mg Tablet,Delayed Release (Dr/Ec) 81 mg PO DAILY vitamin B complex Tablet 1 tab PO DAILY Discharge Orders: Discharge ED (Routine); Ordered 03/26/24 Ordered By: Brett Engel Referrals: Darell Jackson MD [Primary Care Provider] - Discharge Diet: Usual diet Discharge Activity: Increase activity as tolerated Patient Instructions: Opioid Safety, Pain Management Activity Restrictions/Additional Instructions: Thank you for choosing [facility] for your healthcare needs today. It is very important that you follow up as instructed or that you return to the Emergency Department should you have concerns or if your condition changes or worsens in any way. You are seen today for complaints of rapid heart rate. While on the monitor here your heart rate alin well-controlled. Will set you up for 72-hour Holter monitor to evaluate for episodes of breakthrough atrial fibrillation with rapid response. We also noticed an incidental finding of a bladder infection. You are given dose of antibiotics here in the emergency room and recommend starting oral antibiotic tomorrow 1 pill twice a day for 7 days. 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
[2024-03-26 10:38] LABS: Alanine Aminotransferase 17 U/L (0-41); Albumin Level 3.8 g/dL (3.5-5.2); Alkaline Phosphatase 121 U/L (40-130); Anion Gap 14.5 (5-19); Aspartate Amino Transferase 19 U/L (0-40); Blood Urea Nitrogen 16 mg/dL (8-23); Calcium 8.5 mg/dL (8.5-10.5); Carbon Dioxide 22 mmol/L (22-29); Chloride 106 mmol/L (98-107); Creatinine Clr Calc Pharmacy 71.7731; Globulin 2.3 g/dL (1.3-4.6); Glucose 151 mg/dL (65-115); Osmolality Calculated 290 mOsm/kg (285-295); Potassium 4.5 mmol/L (3.5-5.1); Sodium 138 mmol/L (136-145); Total Bilirubin 0.3 mg/dL (0.15-1.2); Total Protein 6.1 g/dL (6.6-8.7)
[2024-03-26 10:40] LABS: Troponin(5th) Baseline 13 ng/L (0-15)
[2024-03-26 11:52] LABS: Bilirubin Urine Neg (Negative); Blood Urine Neg (Negative); Glucose Urine UA Norm (Normal); Ketones Urine Negative (Negative); Leukocyte Esterase Urine 2+ (Negative); Nitrate Urine Negative (Negative); Protein Urine Neg (Negative); Urine Appearance Slightly Cloudy (CLEAR); Urine Color Yellow (Yellow); Urobilinogen Urine Norm (Negative); pH Urine 7 (5-7)
--- NOTE | 2024-03-26 11:52 | ECG_ITS ---
[facility] Test Date: 2024-03-26 Pat Name: Jesus Avilez Department: Room: Gender: Male Milieu Technician: : 1940 Requested By: Brett Arita Order Number: [id number] Yvette MD: Norberto Lozoya M.D. Measurements Intervals [place] Rate: 57 P: 69 PA: 218 QRS: 6 QRSD: 81 T: 57 QT: 389 QTc: 381 Interpretive Statements SINUS BRADYCARDIA WITH FIRST DEGREE AV BLOCK LOW QRS VOLTAGE IN PRECORDIAL LEADS [QRS DEFLECTION < 1.0 mV IN CHEST LEADS] Compared to ECG 03/26/2024 09:44:54 First degree AV block now present Low QRS voltage now present Atrial fibrillation no longer present T-wave abnormality no longer present Electronically Signed On 03-26-2024 17:03:34 CDT by Norberto Lozoya M.D. [id number]
[2024-03-26 11:53] LABS: Add Urine Culture? Yes; Add Urine Microscopic? YES; Bacteria Urine 1+ /hpf; Mucus Urine 1+ /hpf; WBC Urine 40-55 /hpf (0-5)
[2024-03-26] MEDS: cefTRIAXone 1,000 mg SDV 1000 MG IVP (12:27)
[2024-03-26 12:34] VITALS: BP 111/59; PULSE 58; O2SAT 100
[2024-03-26 12:47] LABS: Troponin 5 2HR 11.31 ng/L (0-15)
[2024-03-26 13:18] LABS: Troponin 5 2HR Delta -1.69 ABS# (0-10)
--- NOTE | 2024-03-28 07:40 | DCPLANNER ---
messaged heart/lung for er f/u
== END 2024-03-26 14:07 | disposition home or self-care (01) ==
PROVIDERS: Emergency Provider Family Medicine; PCP Family Medicine
DX: I48.91 Unspecified atrial fibrillation (principal); N30.90 Cystitis, unspecified without hematuria; N31.2 Flaccid neuropathic bladder, not elsewhere classified; Z79.02 Long term (current) use of antithrombotics/antiplatelets; Z79.82 Long term (current) use of aspirin
CPT/HCPCS: 36415; 71045; 80053; 81001; 84484; 85025; 87086; 93005; 96374; 99285; J0696

== ENCOUNTER → 2024-03-31 08:30 | Outpatient (BNVA) | payer MEDICARE, SELFPAY | PROVIDERS: PCP Family Medicine; Visit Provider Internal Medicine | DX: I48.91 Unspecified atrial fibrillation (principal); I49.1 Atrial premature depolarization; I49.3 Ventricular premature depolarization; I47.10 Supraventricular tachycardia, unspecified | CPT/HCPCS: 93242 ==

== ENCOUNTER → 2024-04-05 09:44 | Outpatient (BNVA) | payer MEDICARE, SELFPAY | PROVIDERS: PCP Family Medicine; Visit Provider Podiatrist Foot & Ankle Surgery | DX: M25.571 Pain in right ankle and joints of right foot (principal) | CPT/HCPCS: 73610; 99203 ==

== ENCOUNTER 2024-04-07 06:44 | Emergency (ER) | payer MEDICARE, SELFPAY ==
[2024-04-07 07:01] VITALS: BP 115/68; PULSE 94; RESP 19; TEMP 36.8; O2SAT 95; BMI 25.0
--- NOTE | 2024-04-07 07:11 | ECG_ITS ---
[facility] Test Date: 2024-04-07 Pat Name: Jesus Avilez Department: Room: Gender: Male Working Second Hand: : 1940 Requested By: Brett Arita Order Number: [id number] Yvette MD: Naga Celis M.D. Measurements Intervals [place] Rate: 87 P: 0 CO: 0 QRS: 9 QRSD: 85 T: 63 QT: 334 QTc: 402 Interpretive Statements ATRIAL FIBRILLATION Compared to ECG 03/26/2024 12:30:02 Sinus bradycardia no longer present First degree AV block no longer present Electronically Signed On 04-07-2024 9:57:03 CDT by Naga Celis M.D. [id number]
[2024-04-07 07:20] LABS: Basophils # 0.1 10^3/uL (0.0-0.1); Basophils % 0.7 %; Eosinophils # 0.2 10^3/uL (0.0-0.8); Eosinophils % 2.1 %; Hematocrit 42.3 % (37-53); Lymphocytes # 2.2 10^3/uL (0.8-4.8); Lymphocytes % 30.4 %; Mean Corpuscular HGB Conc 33.8 g/dL (30-55); Mean Corpuscular Hemoglobin 32.8 pg (27-33); Mean Platelet Volume 8.3 fL (7.4-10.4); Monocytes # 0.7 10^3/uL (0.2-0.9); Monocytes % 10.3 %; Neutrophils # 4.05 10^3/uL (1.8-7.7); Neutrophils % 56.4 %; Nucleated Red Blood Cells % 0 %; Platelet Count 231 10^3/cmm (157-399); Red Blood Count 4.36 10^6/uL (3.85-5.65); Red Cell Distribution Width 12.8 % (12.1-15.1); White Blood Count 7.18 10^3/uL (3.29-11.43)
--- NOTE | 2024-04-07 07:23 | ED_ITS ---
HPI - Arrhythmia/Palpitations 2 General: Chief Complaint: Arrhythmia/Palpitations Stated Complaint: heart racing, chest pain Time Seen by Provider: 04/07/24 06:53 History of Present Illness: 83-year-old male presents emergency room with rapid heart rate and chest discomfort. Patient is a known history of A-fib with RVR he was seen about 2 weeks ago with a similar episode of rapid heart rate overnight. He has a Holter monitor pending. He states he has not missed any doses of medication and took all of his medication regularly. He took 25 mg of metoprolol last night initially around 1:00 and then another 100 mg at around 2 AM. He reports he had a heart rate of 130 on his fingertip oximeter. His heart rate is in the 60s at this time. When he is seen on the was a question of UTI he was treated with antibiotics culture grew out contamination. He did have 40-50 white blood cells per high-power field he still has some mild dysuria frequency also reports nocturia. His known history of BPH. Review of Systems 2 Const: Denies: fever(s) or chills Card: Reports: chest pain and palpitations Resp: Denies: dyspnea GI: Denies: abdominal pain : Denies: dysuria, urinary frequency or urinary urgency Musc: Denies: neck pain or back pain Skin/Breast: Denies: rash PFSH ED 2 PFSH: Medical History Atrial fibrillation with RVR Anxiety Atrial fibrillation with rapid ventricular response Atrial fibrillation, new onset Urethral stricture Lower urinary tract symptoms (LUTS) Surgical History Hx of tonsillectomy H/O arthroscopy of knee left History of carpal tunnel release left H/O rotator cuff surgery left Family History Father , at age 63 Cancer tongue Mother , at age 64 Lung disease Social History Smoking and tobacco/nicotine status: never used tobacco/nicotine Alcohol intake: current Alcohol intake frequency: 0-2 Drinks per Day Marital status: Current occupational status: retired Physical Exam 2 Const: COMMON NORMALS: no acute distress GENERAL APPEARANCE: cooperative and comfortable ORIENTATION/CONSCIOUSNESS: Yes awake, Yes oriented to person, Yes oriented to place and Yes oriented to time HENMT: COMMON NORMALS: normocephalic, atraumatic and hearing grossly normal bilaterally HEAD & SCALP: normocephalic and atraumatic Resp: COMMON NORMALS: normal respiratory effort, No retractions, No use of accessory muscles and clear to auscultation bilaterally AUSCULTATION: clear to auscultation bilaterally Cardio: COMMON NORMALS: No murmurs present (Cardio) RATE: bradycardic R HYTHM: abnormal rhythm irregularly irregular GI: COMMON NORMALS: Soft to palpation and No hepatosplenomegaly present A USCULTATION: Yes normoactive bowel sounds PALPATION: Yes Soft to palpation, No Tenderness to palpation present (GI), No Guarding due to palpation present (GI) and Yes No hepatosplenomegaly present Extremity: COMMON NORMALS: normal to inspection, capillary refill normal, no clubbing, cyanosis or edema, no calf tenderness and no pedal edema Neuro: SENSORIUM/ORIENTATION: Yes oriented to person, Yes oriented to place and Yes oriented to time Skin: COMMON NORMALS: no rashes or lesions noted GENERAL SKIN EXAM: no rashes or lesions noted Course 2 Vital Signs: Vital signs: Vital Signs Temperature 98.2 F 04/07/24 07:01 Pulse Rate 65 04/07/24 10:37 Respiratory Rate 15 04/07/24 10:37 Blood Pressure 127/69 04/07/24 10:37 Pulse Oximetry 98 04/07/24 10:37 Oxygen Delivery Me thod Room Air 04/07/24 07:01 MDM - Arrhythmia/Palpitations Medical Decision Making Patient's rhythm well-controlled bradycardic most of the time he is actually here labs and imaging reviewed. He recently had 72-hour Holter monitor after he had presented here with a similar type complaint at this point I do not think we can increase his medications. He did do a Dilantin level which is low but has not had any recent seizure-like activity. Encouraged him to follow-up with cardiology for review of the Holter monitor and medication adjustments as indicated if has further symptoms return to the emergency room Medical Records I reviewed the patient's medical records. Lab Data I reviewed the patient's lab results. 04/07/24 07:04 04/07/24 07:04 Laboratory Results WBC 7.18 10^3/uL (3.29-11.43) 04/07/24 07:04 RBC 4.36 10^6/uL (3.85-5.65) 04/07/24 07:04 Hgb 14.30 g/dL (11.27-16.99) 04/07/24 07:04 Hct 42.3 % (37-53) 04/07/24 07:04 MCV 97.0 fl (82-101) 04/07/24 07:04 MCH 32.8 pg (27-33) 04/07/24 07:04 MCHC 33.8 g/dL (30-55) 04/07/24 07:04 RDW 12.8 % (12.1-15.1) 04/07/24 07:04 Plt Count 231 10^3/cmm (157-399) 04/07/24 07:04 MPV 8.3 fL (7.4-10.4) 04/07/24 07:04 Neut % (Auto) 56.4 % 04/07/24 07:04 Lymph % (Auto) 30.4 % 04/07/24 07:04 [place] % (Auto) 10.3 % 04/07/24 07:04 Eos % (Auto) 2.1 % 04/07/24 07:04 Baso % (Auto) 0.7 % 04/07/24 07:04 Neut # (Auto) 4.05 10^3/uL (1.8-7.7) 04/07/24 07:04 Lymph # (Auto) 2.2 10^3/uL (0.8-4.8) 04/07/24 07:04 [place] # (Auto) 0.7 10^3/uL (0.2-0.9) 04/07/24 07:04 Eos # (Auto) 0.2 10^3/uL (0.0-0.8) 04/07/24 07:04 Baso # (Auto) 0.1 10^3/uL (0.0-0.1) 04/07/24 07:04 Nucleated RBC % (auto) 0 % 04/07/24 07:04 Nucleated RBCs # 0.0 /100WBC 04/07/24 07:04 Sodium 134 mmol/L (136-145) L 04/07/24 07:04 Potassium 4.5 mmol/L (3.5-5.1) 04/07/24 07:04 Chloride 104 mmol/L (98-107) 04/07/24 07:04 Carbon Dioxide 22 mmol/L (22-29) 04/07/24 07:04 Anion Gap 12.5 (5-19) 04/07/24 07:04 BUN 18 mg/dL (8-23) 04/07/24 07:04 Creatinine 0.7 mg/dL (0.7-1.2) 04/07/24 07:04 GFR Calculation Not Reportable 04/07/24 07:04 Glucose 111 mg/dL (65-115) 04/07/24 07:04 Calculated Osmolality 281 mOsm/kg (285-295) L 04/07/24 07:04 Calcium 8.9 mg/dL (8.5-10.5) 04/07/24 07:04 Total Bilirubin 0.2 mg/dL (0.15-1.2) 04/07/24 07:04 AST 21 U/L (0-40) 04/07/24 07:04 ALT 16 U/L (0-41) 04/07/24 07:04 Alkaline Phosphatase 122 U/L (40-130) 04/07/24 07:04 Troponin T Baseline 12 ng/L (0-15) 04/07/24 07:04 Troponin T 120 Minute 11.86 ng/L (0-15) 04/07/24 08:58 Delta Troponin T -0.14 ABS# (0-10) L 04/07/24 08:58 Total Protein 6.5 g/dL (6.6-8.7) L 04/07/24 07:04 Albumin 4.1 g/dL (3.5-5.2) 04/07/24 07:04 Globulin 2.4 g/dL (1.3-4.6) 04/07/24 07:04 Urine Color Yellow (Yellow) 04/07/24 07:51 Urine Appearance Clear (CLEAR) 04/07/24 07:51 Urine pH 7.5 (5-7) 04/07/24 07:51 Ur Specific [place] 1.008 (1.005-1.030) 04/07/24 07:51 Urine Protein Negative (Negative) 04/07/24 07:51 Urine Glucose (UA) Negative (Normal) 04/07/24 07:51 Urine Ketones Negative (Negative) 04/07/24 07:51 Urine Blood Negative (Negative) 04/07/24 07:51 Urine Nitrate Negative (Negative) 04/07/24 07:51 Urine Bilirubin Negative (Negative) 04/07/24 07:51 Urine Urobilinogen 0.2 mg/dL (Negative) 04/07/24 07:51 Ur Leukocyte Esterase Negative (Negative) 04/07/24 07:51 Urine RBC 0-2 /hpf (0-2) 04/07/24 07:51 Urine WBC 0-5 /hpf (0-5) 04/07/24 07:51 Ur Squamous Epith Cells 0-5 /hpf (0-5) 04/07/24 07:51 Amorphous Sediment Not Reportable 04/07/24 07:51 Urine Bacteria None seen /hpf (NONE) 04/07/24 07:51 Hyaline Casts 0-4 /lpf H 04/07/24 07:51 Phenytoin 7.7 ug/mL (10-20) L 04/07/24 07:04 All radiology interpretation(s) finalized by discharge Discharge Plan Discharge Patient Disposition: Home Clinical Impression: Atrial fibrillation, Neurogenic bladder, flaccid Condition: Stable Prescriptions: No Action ascorbate calcium (vitamin C) 500 mg tablet 500 mg PO QAM flaxseed oil 1,000 mg capsule 1,000 mg PO QAM Rx Instructions: administer with a meal selenium 100 mcg tablet 100 mcg PO QAM clopidogrel 75 mg tablet 75 mg PO DAILY doxycycline hyclate 100 mg tablet 100 mg PO DAILY PRN (Reason: eye infection) melatonin 5 mg Tablet 5 mg PO BEDTIME omega-3 fatty acids 1,000 mg Capsule 1,000 mg PO QAM phenytoin sodium extended [Dilantin Extended] 100 mg capsule 100 mg PO BID Mike Mag Zinc Plus D3 333 mg-133 unit -133 mg-5 mg Tablet 1 tab PO BID PreserVision AREDS-2 250-90-40-1 mg Capsule 1 tab PO BID metoprolol tartrate 100 mg tablet 100 mg PO BID Qty: 60 1RF diclofenac sodium 75 mg tablet,delayed release (DR/EC) 75 mg PO Q12H PRN (Reason: pain) Qty: 20 0RF Aspir-81 81 mg Tablet,Delayed Release (Dr/Ec) 81 mg PO DAILY vitamin B complex Tablet 1 tab PO DAILY cefdinir 300 mg capsule 300 mg PO BID Qty: 14 0RF Discharge Orders: Discharge ED (Routine); Ordered 04/07/24 Ordered By: Brett Engel Referrals: Darell Jackson MD [Primary Care Provider] - Discharge Diet: Usual diet Discharge Activity: Resume usual activity Patient Instructions: Opioid Safety, Pain Management Activity Restrictions/Additional Instructions: Thank you for choosing [facility] for your healthcare needs today. It is very important that you follow up as instructed or that you return to the Emergency Department should you have concerns or if your condition changes or worsens in any way. You were seen in the emergency room today with complaint of an episode of rapid heart rate. Your rate in the emergency room has been normal. 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 Urine was rechecked based on your description of persistent urinary tract symptoms the urine did not show any signs of infection at your previous visit a culture was done this showed contamination. 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
[2024-04-07 07:35] LABS: Alanine Aminotransferase 16 U/L (0-41); Albumin Level 4.1 g/dL (3.5-5.2); Alkaline Phosphatase 122 U/L (40-130); Anion Gap 12.5 (5-19); Aspartate Amino Transferase 21 U/L (0-40); Blood Urea Nitrogen 18 mg/dL (8-23); Calcium 8.9 mg/dL (8.5-10.5); Carbon Dioxide 22 mmol/L (22-29); Chloride 104 mmol/L (98-107); Creatinine Clr Calc Pharmacy 70.3595; Globulin 2.4 g/dL (1.3-4.6); Glucose 111 mg/dL (65-115); Osmolality Calculated 281 mOsm/kg (285-295); Potassium 4.5 mmol/L (3.5-5.1); Sodium 134 mmol/L (136-145); Total Bilirubin 0.2 mg/dL (0.15-1.2); Total Protein 6.5 g/dL (6.6-8.7)
[2024-04-07 07:50] LABS: Troponin(5th) Baseline 12 ng/L (0-15)
[2024-04-07 07:52] LABS: Phenytoin Dilantin 7.7 ug/mL (10-20)
[2024-04-07 08:06] LABS: Charge for UA Resulting for Rev
[2024-04-07 08:08] LABS: Bilirubin Urine Negative (Negative); Blood Urine Negative (Negative); Glucose Urine UA Negative (Normal); Ketones Urine Negative (Negative); Leukocyte Esterase Urine Negative (Negative); Nitrate Urine Negative (Negative); Protein Urine Negative (Negative); Specific Gravity, Urine 1.008 (1.005-1.030); Urine Appearance Clear (CLEAR); Urine Color Yellow (Yellow); Urobilinogen Urine 0.2 mg/dL (Negative); pH Urine 7.5 (5-7)
[2024-04-07 08:14] LABS: Bacteria Urine None Seen /hpf; Hyaline Casts Urine 0-4 /lpf; RBC Urine 0-2 /hpf (0-2); Squamous Epithelial Cell Urine 0-5 /hpf (0-5); WBC Urine 0-5 /hpf (0-5)
[2024-04-07 09:18] VITALS: BP 131/66; PULSE 63
[2024-04-07 09:22] LABS: Troponin 5 2HR 11.86 ng/L (0-15)
--- NOTE | 2024-04-07 09:23 | ECG_ITS ---
[facility] Test Date: 2024-04-07 Pat Name: Jesus Avilez Department: Room: Gender: Male Specialty Trimmer: : 1940 Requested By: Brett Arita Order Number: [id number] Yvette MD: Naga Celis M.D. Measurements Intervals [place] Rate: 62 P: 77 [place]: 226 QRS: 20 QRSD: 89 T: 72 QT: 389 QTc: 397 Interpretive Statements SINUS RHYTHM WITH FIRST DEGREE AV BLOCK Compared to ECG 04/07/2024 06:47:07 First degree AV block now present Atrial fibrillation no longer present Electronically Signed On 04-07-2024 9:57:34 CDT by Naga Celis M.D. [id number]
[2024-04-07 09:32] LABS: Troponin 5 2HR Delta -0.14 ABS# (0-10)
[2024-04-07 10:00] VITALS: BP 129/68; PULSE 63; RESP 15; O2SAT 98
[2024-04-07 10:37] VITALS: BP 127/69; PULSE 65; RESP 15; O2SAT 98
== END 2024-04-07 10:38 | disposition home or self-care (01) ==
PROVIDERS: Emergency Provider Family Medicine; PCP Family Medicine
DX: I48.91 Unspecified atrial fibrillation (principal); N31.2 Flaccid neuropathic bladder, not elsewhere classified; Z79.02 Long term (current) use of antithrombotics/antiplatelets; Z79.82 Long term (current) use of aspirin
CPT/HCPCS: 36415; 51798; 80053; 80185; 81003; 81015; 84484; 85025; 93005; 99285

== ENCOUNTER 2024-06-07 18:05 | Emergency (ER) | payer MEDICARE, SELFPAY ==
--- NOTE | 2024-06-07 18:07 | ECG_ITS ---
[facility] Test Date: 2024-06-07 Pat Name: Jesus Avilez Department: Room: Gender: Male Camera Mechanic: : 1940 Requested By: Candido Wyman Order Number: [id number] Yvette MD: GLEN PAZ Measurements Intervals [place] Rate: 95 P: 0 DE: 0 QRS: -6 QRSD: 86 T: 67 QT: 317 QTc: 399 Interpretive Statements ATRIAL FIBRILLATION NONSPECIFIC T-WAVE ABNORMALITY ABNORMAL RHYTHM ECG Compared to ECG 04/07/2024 09:35:33 T-wave abnormality now present Sinus rhythm no longer present First degree AV block no longer present Electronically Signed On 06-08-2024 20:12:34 CDT by GLEN PAZ [id number]
[2024-06-07 18:15] VITALS: BP 149/88; PULSE 76; RESP 18; TEMP 36.4; O2SAT 98; BMI 23.8
== END 2024-06-07 19:10 | disposition left against medical advice (07) ==
LOC: ER 18:10
PROVIDERS: Emergency Provider Family Medicine; PCP Family Medicine
DX: Z53.21 Procedure and treatment not carried out due to patient leaving prior to being seen by health care provider (principal)
CPT/HCPCS: 93005

== ENCOUNTER 2024-06-07 20:59 | Emergency (ER) | payer MEDICARE, SELFPAY ==
[2024-06-07] VITALS (11 sets, daily range): BP systolic 102–115; BP diastolic 52–65; PULSE 64–90; RESP 12–28; TEMP 37; O2SAT 95–98; BMI 23.8
--- NOTE | 2024-06-07 20:59 | ECG_ITS ---
[facility] Test Date: 2024-06-07 Pat Name: Jesus Avilez Department: Room: Gender: Male R[employer]her [employer]: : 1940 Requested By: Kaela Arita Order Number: [id number] Yvette MD: GLEN PAZ Measurements Intervals [place] Rate: 83 P: 0 NC: 0 QRS: -6 QRSD: 84 T: 59 QT: 331 QTc: 391 Interpretive Statements ATRIAL FIBRILLATION ABNORMAL RHYTHM ECG Compared to ECG 04/07/2024 09:35:33 Sinus rhythm no longer present First degree AV block no longer present Electronically Signed On 06-08-2024 20:07:19 CDT by GLEN PAZ [id number]
--- NOTE | 2024-06-07 22:57 | ED_ITS ---
HPI - Arrhythmia/Palpitations General: Chief Complaint: Arrhythmia/Palpitations Stated Complaint: irregular heartbeat Time Seen by Provider: 06/07/24 22:39 History of Present Illness: Patient presents to the ER because he said he cannot get his A-fib controlled. Patient did take a dose of his metoprolol 100 mg today when his heart rate was up in 120s. Upon arrival patient's heart rate is been anywhere between 68 and 90 bpm. Patient denies chest pain or shortness of breath patient does take an 81 mg aspirin daily. EKG upon arrival showed A-fib at 95 beats minute. Related Data Home Medications Medication Instructions Recorded Confirmed ascorbate calcium (vitamin C) 500 500 mg PO QAM 12/12/20 04/05/24 mg tablet flaxseed oil 1,000 mg capsule 1,000 mg PO QAM 12/12/20 04/05/24 selenium 100 mcg tablet 100 mcg PO QAM 12/12/20 04/05/24 melatonin 5 mg tablet 5 mg PO BEDTIME 06/02/23 04/05/24 omega-3 fatty acids 1,000 mg 1,000 mg PO QAM 06/02/23 04/05/24 capsule calcium carb 333 mg-vit D3 133 1 tab PO BID 09/06/23 04/05/24 unit-mag ox 133 mg-zinc oxide 5 mg tab (Mike Mag Zinc Plus D3) phenytoin sodium extended 100 mg 100 mg PO BID 09/06/23 04/05/24 capsule (Dilantin Extended) vit C 250 mg-vit E 90 mg-zinc 40 1 tab PO BID 09/06/23 04/05/24 mg-copper 1 xf-[id number]-aecmml capsule (PreserVision AREDS-2) clopidogrel 75 mg tablet 75 mg PO DAILY 12/03/23 04/05/24 doxycycline hyclate 100 mg tablet 100 mg PO DAILY PRN eye infection 12/03/23 04/05/24 aspirin 81 mg tablet,delayed 81 mg PO DAILY 01/01/24 04/05/24 release vitamin B complex 1 tab PO DAILY 01/01/24 04/05/24 Previous Rx's Medication Instructions Recorded metoprolol tartrate 100 mg tablet 100 mg PO BID #60 tabs 10/24/23 diclofenac sodium 75 mg 75 mg PO Q12H PRN pain #20 tabs 01/01/24 tablet,delayed release cefdinir 300 mg capsule 300 mg PO BID #14 caps 03/26/24 Allergies Allergy/AdvReac Type Severity Reaction Status Date / Time [facility] Allergy ADR-Halluci Verified 06/07/24 18:20 venancio Review of Systems General: Reports: 10 or more systems reviewed and unremarkable except in HPI and below PFSH ED PFSH: Medical History Atrial fibrillation with RVR Anxiety Atrial fibrillation with rapid ventricular response Atrial fibrillation, new onset Urethral stricture Lower urinary tract symptoms (LUTS) Surgical History Hx of tonsillectomy H/O arthroscopy of knee left History of carpal tunnel release left H/O rotator cuff surgery left Family History Father , at age 63 Cancer tongue Mother , at age 64 Lung disease Social History Smoking and tobacco/nicotine status: never used tobacco/nicotine Alcohol intake: current Alcohol intake frequency: 0-2 Drinks per Day Marital status: Current occupational status: retired Physical Exam Const: COMMON NORMALS: no acute distress, average body habitus, patient oriented x3, no limitations, healthy appearing, alert and well nourished HENMT: COMMON NORMALS: normocephalic, atraumatic, hearing grossly normal bilaterally, external ears normal, Normal external nose present and moist oral mucous membranes HEAD & SCALP: normocephalic and atraumatic NOSE: Normal external nose present EXTERNAL EAR: Yes external ears normal Neck/C-Spine: COMMON NORMALS: no JVD Chest: COMMONS NORMALS: normal inspection of the chest and normal palpation of entire chest wall Resp: COMMON NORMALS: normal respiratory effort, No retractions, No use of accessory muscles and clear to auscultation bilaterally AUSCULTATION: clear to auscultation bilaterally Cardio: COMMON NORMALS: no JVD, regular rhythm, S1 normal heart sound present, S2 normal heart sound present, No gallops present (Cardio), No clicks present (Cardio), No murmurs present (Cardio) and No rub (Cardio); negative for regular rate (Irregularly irregular rhythm) RATE: abnormal rate (Irregularly irregular rhythm) RHYTHM: regular rhythm HEART SOUNDS: S1 normal heart sound present and S2 normal heart sound present GI: COMMON NORMALS: Normal to inspection, nondistended, normoactive bowel sounds present, Soft to palpation, non-tender, No hepatosplenomegaly present and no masses PALPATION: Yes Soft to palpation and Yes No hepatosplenomegaly present Neuro: COMMON NORMALS: patient oriented x3 SENSORIUM/ORIENTATION: Yes alert Course Vital Signs: Vital signs: Vital Signs Temperature 98.6 F 06/07/24 21:01 Pulse Rate 75 06/07/24 23:21 Respiratory Rate 18 06/07/24 23:21 Blood Pressure 102/65 06/07/24 23:21 Pulse Oximetry 96 06/07/24 23:21 Oxygen Delivery Me thod Room Air 06/07/24 22:42 MDM - Arrhythmia/Palpitations Medical Decision Making Patient presented in A-fib after already taking additional dose of his home metoprolol which had his rate controlled between 75 and 90 beats a minute the entire stay in the ER. Patient's EKG was benign A-fib with no ST changes, patient denied any chest pain shortness of breath diaphoresis nausea vomiting. Patient will be discharged home. Differential Diagnosis Likely artial fibrillation Medical Records I reviewed the patient's medical records. Lab Data I reviewed the patient's lab results. No radiology studies performed this visit Discharge Plan Discharge Patient Disposition: Home Clinical Impression: Atrial fibrillation Qualifiers: Atrial fibrillation type: unspecified Qualified Code(s): I48.91 - Unspecified atrial fibrillation Condition: Stable Prescriptions: No Action ascorbate calcium (vitamin C) 500 mg tablet 500 mg PO QAM flaxseed oil 1,000 mg capsule 1,000 mg PO QAM Rx Instructions: administer with a meal selenium 100 mcg tablet 100 mcg PO QAM clopidogrel 75 mg tablet 75 mg PO DAILY doxycycline hyclate 100 mg tablet 100 mg PO DAILY PRN (Reason: eye infection) melatonin 5 mg Tablet 5 mg PO BEDTIME omega-3 fatty acids 1,000 mg Capsule 1,000 mg PO QAM phenytoin sodium extended [Dilantin Extended] 100 mg capsule 100 mg PO BID Mike Mag Zinc Plus D3 333 mg-133 unit -133 mg-5 mg Tablet 1 tab PO BID PreserVision AREDS-2 250-90-40-1 mg Capsule 1 tab PO BID metoprolol tartrate 100 mg tablet 100 mg PO BID Qty: 60 1RF diclofenac sodium 75 mg tablet,delayed release (DR/EC) 75 mg PO Q12H PRN (Reason: pain) Qty: 20 0RF Aspir-81 81 mg Tablet,Delayed Release (Dr/Ec) 81 mg PO DAILY vitamin B complex Tablet 1 tab PO DAILY cefdinir 300 mg capsule 300 mg PO BID Qty: 14 0RF Discharge Orders: Discharge ED (Routine); Ordered 06/07/24 Ordered By: Candido Wyman Referrals: Darell Jackson MD [Primary Care Provider] - 1 week Patient Instructions: A-fib (Atrial Fibrillation) (ED) Activity Restrictions/Additional Instructions: Your evaluation in ER showed you have a rate controlled atrial fibrillation, your rate was between 75 and 90 bpm during her stay in the ER. This may be due to your additional dose of metoprolol you have taken at home. 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 Coding Level of Care Code ED Team Physician for More Mallory
== END 2024-06-07 23:48 | disposition home or self-care (01) ==
PROVIDERS: Emergency Provider Emergency Medicine; PCP Family Medicine
DX: I48.91 Unspecified atrial fibrillation (principal); Z79.02 Long term (current) use of antithrombotics/antiplatelets; Z79.82 Long term (current) use of aspirin
CPT/HCPCS: 93005; 99283

== ENCOUNTER 2024-06-25 23:34 | Emergency (ER) | payer MEDICARE, SELFPAY ==
[2024-06-25 23:41] VITALS: BP 127/90; PULSE 109; RESP 15; O2SAT 96; BMI 24.3
--- NOTE | 2024-06-26 00:29 | XRR_ITS ---
PROCEDURE INFORMATION: Exam: XR Chest Exam date and time: 06/26/2024 12:47 AM Age: 84 years old Clinical indication: Chest pressure; Prior surgery; Surgery date: 6+ months; Surgery type: Watchman; Patient HX: C/O chest pain; Additional info: Palpitations TECHNIQUE: Imaging protocol: Radiologic exam of the chest. Views: 1 view. COMPARISON: CR XR chest 1V portable [id number] 03/26/2024 9:55 AM FINDINGS: Lungs: Emphysematous changes. Pleural spaces: Unremarkable. No pleural effusion. No pneumothorax. Heart/Mediastinum: Aortic atherosclerotic calcifications. Bones/joints: Unremarkable. XR/XR chest 1V portable [id number] IMPRESSION: 1. Negative for infiltrate. 2. Emphysematous changes. 3. Aortic atherosclerotic calcifications.
[2024-06-26 01:05] LABS: Basophils # 0.1 10^3/uL (0.0-0.1); Basophils % 0.7 %; Eosinophils # 0.2 10^3/uL (0.0-0.8); Hematocrit 42.2 % (37-53); Lymphocytes # 2.5 10^3/uL (0.8-4.8); Lymphocytes % 33.4 %; Mean Corpuscular HGB Conc 32.7 g/dL (30-55); Mean Corpuscular Hemoglobin 32.2 pg (27-33); Mean Corpuscular Volume 98.6 fl (82-101); Mean Platelet Volume 8.5 fL (7.4-10.4); Monocytes # 0.7 10^3/uL (0.2-0.9); Monocytes % 10.1 %; Neutrophils # 3.86 10^3/uL (1.8-7.7); Neutrophils % 52.5 %; Nucleated Red Blood Cells % 0 %; Platelet Count 187 10^3/cmm (157-399); Red Blood Count 4.28 10^6/uL (3.85-5.65); Red Cell Distribution Width 12.8 % (12.1-15.1); White Blood Count 7.34 10^3/uL (3.29-11.43)
[2024-06-26 01:29] LABS: Troponin(5th) Baseline 15 ng/L (0-15)
[2024-06-26 01:38] LABS: Alanine Aminotransferase 20 U/L (0-41); Albumin Level 4.2 g/dL (3.5-5.2); Anion Gap 10.8 (5-19); Aspartate Amino Transferase 24 U/L (0-40); Blood Urea Nitrogen 15 mg/dL (8-23); Calcium 8.4 mg/dL (8.5-10.5); Carbon Dioxide 26 mmol/L (22-29); Chloride 100 mmol/L (98-107); Creatine Phosphokinase 102 U/L (39-308); Creatinine Clr Calc Pharmacy 68.2535; Glucose 137 mg/dL (65-115); NT Pro B Type Natriuretic Pept 483 pg/mL (0-450); Osmolality Calculated 279 mOsm/kg (285-295); Potassium 3.8 mmol/L (3.5-5.1); Sodium 133 mmol/L (136-145); Total Bilirubin 0.2 mg/dL (0.15-1.2); Total Protein 6.3 g/dL (6.6-8.7)
[2024-06-26 01:39] LABS: Alkaline Phosphatase 121 U/L (40-130); Globulin 2.1 g/dL (1.3-4.6)
[2024-06-26 01:48] LABS: INR 0.99 (0.8-1.2); Partial Thromboplastin Time 27.1 SECONDS (23.9-36.7)
[2024-06-26 02:00] VITALS: BP 105/71; PULSE 83; RESP 12; O2SAT 96
[2024-06-26 02:15] VITALS: BP 137/86; PULSE 82; RESP 16; O2SAT 98
--- NOTE | 2024-06-26 02:29 | ECG_ITS ---
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 Measurements Intervals [place] Rate: 109 P: 0 GA: 0 QRS: -4 QRSD: 84 T: 73 QT: 302 QTc: 408 Interpretive Statements ATRIAL FIBRILLATION WITH RAPID VENTRICULAR RESPONSE LOW QRS VOLTAGE IN PRECORDIAL LEADS [QRS DEFLECTION < 1.0 mV IN CHEST LEADS] NONSPECIFIC ST & T-WAVE ABNORMALITY ABNORMAL RHYTHM ECG Compared to ECG 06/07/2024 20:59:20 Low QRS voltage now present T-wave abnormality now present Electronically Signed On 06-28-2024 01:01:58 CDT by Jens Turner M.D. [id number]
[2024-06-26 03:00] VITALS: BP 140/85; PULSE 67; RESP 22; O2SAT 100
[2024-06-26 03:15] LABS: Troponin 5 2HR 20.35 ng/L (0-15); Troponin 5 2HR Delta 5.35 ABS# (0-10)
[2024-06-26 03:33] VITALS: BP 120/77; PULSE 65; RESP 18; O2SAT 96
--- NOTE | 2024-06-26 03:41 | W.ED.ARRPALP ---
HPI - Arrhythmia/Palpitations General: Chief Complaint: Arrhythmia/Palpitations Stated Complaint: CP Time Seen by Provider: 06/26/24 02:44 History of Present Illness: 84-year-old male patient with a history of atrial fibrillation. He has been seen a few times recently regarding rapid A-fib, which is symptomatic to the patient in terms of palpitations. He notes that earlier in the evening, he was getting undressed to go to bed, when he began to shake uncontrollably, his teeth were chattering, and his heart rate began to increase. He notes that it was in the high 130s at the highest according to his monitor at home. He denies fever. He denies significant shortness of breath. He denies significant chest pain although he had some mild pressure and discomfort when his heart rate was high. Related Data Home Medications Medication Instructions Recorded Confirmed ascorbate calcium (vitamin C) 500 500 mg PO QAM 12/12/20 04/05/24 mg tablet flaxseed oil 1,000 mg capsule 1,000 mg PO QAM 12/12/20 04/05/24 selenium 100 mcg tablet 100 mcg PO QAM 12/12/20 04/05/24 melatonin 5 mg tablet 5 mg PO BEDTIME 06/02/23 04/05/24 omega-3 fatty acids 1,000 mg 1,000 mg PO QAM 06/02/23 04/05/24 capsule calcium 333 mg-vit D3 133 1 tab PO BID 09/06/23 04/05/24 unit-magnesium 133 mg-zinc 5 mg tablet (Mike Mag Zinc Plus D3) phenytoin sodium extended 100 mg 100 mg PO BID 09/06/23 04/05/24 capsule (Dilantin Extended) vit C 250 mg-vit E 90 mg-zinc 40 1 tab PO BID 09/06/23 04/05/24 mg-copper 1 sk-dbrvus-mjighl capsule (PreserVision AREDS-2) clopidogrel 75 mg tablet 75 mg PO DAILY 12/03/23 04/05/24 doxycycline hyclate 100 mg tablet 100 mg PO DAILY PRN eye infection 12/03/23 04/05/24 aspirin 81 mg tablet,delayed 81 mg PO DAILY 01/01/24 04/05/24 release vitamin B complex 1 tab PO DAILY 01/01/24 04/05/24 Previous Rx's Medication Instructions Recorded metoprolol tartrate 100 mg tablet 100 mg PO BID #60 tabs 10/24/23 diclofenac sodium 75 mg 75 mg PO Q12H PRN pain #20 tabs 01/01/24 tablet,delayed release cefdinir 300 mg capsule 300 mg PO BID #14 caps 03/26/24 diltiazem HCl 30 mg tablet 30 mg PO Q6H PRN fast heart rate 06/26/24 #60 tabs Allergies Allergy/AdvReac Type Severity Reaction Status Date / Time levetiracetam [From [facility]] Allergy ADR-Halluci Verified 06/07/24 18:20 nating [facility] ED PFS: Medical History Atrial fibrillation with RVR Anxiety Atrial fibrillation with rapid ventricular response Atrial fibrillation, new onset Urethral stricture Lower urinary tract symptoms (LUTS) Surgical History Hx of tonsillectomy H/O arthroscopy of knee left History of carpal tunnel release left H/O rotator cuff surgery left Family History Father , at age 63 Cancer tongue Mother , at age 64 Lung disease Social History Smoking and tobacco/nicotine status: never used tobacco/nicotine Alcohol intake: current Alcohol intake frequency: 0-2 Drinks per Day Marital status: Current occupational status: retired Physical Exam Const: COMMON NORMALS: no acute distress GENERAL APPEARANCE: cooperative; not ill appearing and not frail appearing HENMT: COMMON NORMALS: normocephalic, atraumatic and Normal external nose present HEAD & SCALP: normocephalic and atraumatic FACE & SINUS: normal facial exam and face symmetric NOSE: Normal external nose present Eye: COMMON NORMALS: Equal, round and reactive pupils present and EOMs intact bilaterally PUPIL: Yes Equal, round and reactive pupils present Neck/C-Spine: GENERAL: Yes trachea midline Chest: CHEST: Yes Symmetrical chest wall rise Resp: COMMON NORMALS: normal respiratory effort, No retractions, No use of accessory muscles and clear to auscultation bilaterally AUSCULTATION: clear to auscultation bilaterally Cardio: COMMON NORMALS: regular rate and regular rhythm RATE: regular rate RHYTHM: regular rhythm GI: COMMON NORMALS: Normal to inspection, nondistended, normoactive bowel sounds present Extremity: COMMON NORMALS: no pedal edema Neuro: BEVERLEY COMA SCALE: document GCS findings Beverley coma scale eye opening: Spontaneous Beverley coma scale verbal response: Orientated Beverley coma scale motor response: Obey commands Beverley coma scale total score: 15 SENSORY EXAM: Yes extremities (intact) Psych: COMMON NORMALS: speech normal SPEECH: Yes normal speech Skin: COMMON NORMALS: no rashes or lesions noted GENERAL SKIN EXAM: no rashes or lesions noted Course Vital Signs: Vital signs: Vital Signs Pulse Rate 65 06/26/24 03:33 Respiratory Rate 18 06/26/24 03:33 Blood Pressure 120/77 06/26/24 03:33 Pulse Oximetry 96 06/26/24 03:33 Oxygen Delivery Me thod Room Air 06/26/24 03:00 MDM - Arrhythmia/Palpitations Medical Decision Making On examination, the patient is now in sinus rhythm, with a controlled rate in the 70s. He is asymptomatic at this point. He has no chest pain. Chest x-ray is nonacute. Other laboratory is not significant. His baseline troponin was 15 with a delta of 5, likely rate demand. With conversion, asymptomatic status, he will be discharged home with outpatient follow-up. He is given a prescription for diltiazem 30 mg immediate release, as he may take 1 dose at home with future episodes of this to see if he can decrease his heart rate and symptoms, as he has been to the ER several times for similar problems and complaints. He knows that if he takes the medication, and it does not help he should come to the emergency department, or that he may choose to simply come to the emergency department for evaluation anyway. Outpatient follow-up. Return for new or concerning symptoms Lab Data 06/26/24 00:55 06/26/24 00:55 Radiology Impressions Chest X-Ray 06/26/24 00:29 IMPRESSION: 1. Negative for infiltrate. 2. Emphysematous changes. 3. Aortic atherosclerotic calcifications. Laboratory Results WBC 7.34 10^3/uL (3.29-11.43) 06/26/24 00:55 RBC 4.28 10^6/uL (3.85-5.65) 06/26/24 00:55 Hgb 13.80 g/dL (11.27-16.99) 06/26/24 00:55 Hct 42.2 % (37-53) 06/26/24 00:55 MCV 98.6 fl (82-101) 06/26/24 00:55 MCH 32.2 pg (27-33) 06/26/24 00:55 MCHC 32.7 g/dL (30-55) 06/26/24 00:55 RDW 12.8 % (12.1-15.1) 06/26/24 00:55 Plt Count 187 10^3/cmm (157-399) 06/26/24 00:55 MPV 8.5 fL (7.4-10.4) 06/26/24 00:55 Neut % (Auto) 52.5 % 06/26/24 00:55 Lymph % (Auto) 33.4 % 06/26/24 00:55 [place] % (Auto) 10.1 % 06/26/24 00:55 Eos % (Auto) 3.0 % 06/26/24 00:55 Baso % (Auto) 0.7 % 06/26/24 00:55 Neut # (Auto) 3.86 10^3/uL (1.8-7.7) 06/26/24 00:55 Lymph # (Auto) 2.5 10^3/uL (0.8-4.8) 06/26/24 00:55 [place] # (Auto) 0.7 10^3/uL (0.2-0.9) 06/26/24 00:55 Eos # (Auto) 0.2 10^3/uL (0.0-0.8) 06/26/24 00:55 Baso # (Auto) 0.1 10^3/uL (0.0-0.1) 06/26/24 00:55 Nucleated RBC % (auto) 0 % 06/26/24 00:55 Nucleated RBCs # 0.0 /100WBC 06/26/24 00:55 PT 13.40 SECONDS (12.1-14.9) 06/26/24 00:55 INR 0.99 (0.8-1.2) 06/26/24 00:55 APTT 27.1 SECONDS (23.9-36.7) 06/26/24 00:55 Sodium 133 mmol/L (136-145) L 06/26/24 00:55 Potassium 3.8 mmol/L (3.5-5.1) 06/26/24 00:55 Chloride 100 mmol/L (98-107) 06/26/24 00:55 Carbon Dioxide 26 mmol/L (22-29) 06/26/24 00:55 Anion Gap 10.8 (5-19) 06/26/24 00:55 BUN 15 mg/dL (8-23) 06/26/24 00:55 Creatinine 0.8 mg/dL (0.7-1.2) 06/26/24 00:55 GFR Calculation Not Reportable 06/26/24 00:55 Glucose 137 mg/dL (65-115) H 06/26/24 00:55 Calculated Osmolality 279 mOsm/kg (285-295) L 06/26/24 00:55 Calcium 8.4 mg/dL (8.5-10.5) L 06/26/24 00:55 Total Bilirubin 0.2 mg/dL (0.15-1.2) 06/26/24 00:55 AST 24 U/L (0-40) 06/26/24 00:55 ALT 20 U/L (0-41) 06/26/24 00:55 Alkaline Phosphatase 121 U/L (40-130) 06/26/24 00:55 Creatine Kinase 102 U/L (39-308) 06/26/24 00:55 Troponin T Baseline 15 ng/L (0-15) 06/26/24 00:55 Troponin T 120 Minute 20.35 ng/L (0-15) H 06/26/24 02:39 Delta Troponin T 5.35 ABS# (0-10) 06/26/24 02:39 NT-Pro-B Natriuret Pep 483 pg/mL (0-450) H 06/26/24 00:55 Total Protein 6.3 g/dL (6.6-8.7) L 06/26/24 00:55 Albumin 4.2 g/dL (3.5-5.2) 06/26/24 00:55 Globulin 2.1 g/dL (1.3-4.6) 06/26/24 00:55 All radiology interpretation(s) finalized by discharge Discharge Plan Discharge Patient Disposition: Home Clinical Impression: Atrial fibrillation Qualifiers: Atrial fibrillation type: unspecified Qualified Code(s): I48.91 - Unspecified atrial fibrillation Condition: Stable Prescriptions: New diltiazem HCl 30 mg tablet 30 mg PO Q6H PRN (Reason: fast heart rate) Qty: 60 0RF No Action ascorbate calcium (vitamin C) 500 mg tablet 500 mg PO QAM flaxseed oil 1,000 mg capsule 1,000 mg PO QAM Rx Instructions: administer with a meal selenium 100 mcg tablet 100 mcg PO QAM clopidogrel 75 mg tablet 75 mg PO DAILY doxycycline hyclate 100 mg tablet 100 mg PO DAILY PRN (Reason: eye infection) melatonin 5 mg Tablet 5 mg PO BEDTIME omega-3 fatty acids 1,000 mg Capsule 1,000 mg PO QAM phenytoin sodium extended [Dilantin Extended] 100 mg capsule 100 mg PO BID Mike Mag Zinc Plus D3 333 mg-133 unit -133 mg-5 mg Tablet 1 tab PO BID PreserVision AREDS-2 250-90-40-1 mg Capsule 1 tab PO BID metoprolol tartrate 100 mg tablet 100 mg PO BID Qty: 60 1RF diclofenac sodium 75 mg tablet,delayed release (DR/EC) 75 mg PO Q12H PRN (Reason: pain) Qty: 20 0RF Aspir-81 81 mg Tablet,Delayed Release (Dr/Ec) 81 mg PO DAILY vitamin B complex Tablet 1 tab PO DAILY cefdinir 300 mg capsule 300 mg PO BID Qty: 14 0RF Discharge Orders: Discharge ED (Routine); Ordered 06/26/24 Ordered By: Robbie Somers Referrals: Darell Jackson MD [Primary Care Provider] - 1-3 days Patient Instructions: A-fib (Atrial Fibrillation) (ED), Opioid Safety, Pain Management Activity Restrictions/Additional Instructions: Monitor your heart rate. If you are symptomatic, having palpitations, and your heart rate is above 100, you may try the medication prescribed to you this morning. If there is no significant chest pain, or shortness of breath, you may give the medication 1 to 1-1/2 hours to begin to work before coming to the emergency department. Return for any concerning symptoms otherwise see your doctor this week. 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
== END 2024-06-26 03:40 | disposition home or self-care (01) ==
PROVIDERS: Emergency Provider Emergency Medicine; PCP Family Medicine
DX: I48.91 Unspecified atrial fibrillation (principal); Z79.82 Long term (current) use of aspirin
CPT/HCPCS: 36415; 71045; 80053; 82550; 83880; 84484; 85025; 85610; 85730; 93005; 99285

== ENCOUNTER 2024-06-28 01:11 | Emergency (ER) | payer MEDICARE, SELFPAY ==
[2024-06-28] VITALS (7 sets, daily range): BP systolic 102–118; BP diastolic 62–67; PULSE 66–99; RESP 13–18; TEMP 36.4; O2SAT 92–99; BMI 24.3
--- NOTE | 2024-06-28 01:22 | CTR_ITS ---
PROCEDURE INFORMATION: Exam: CT Head Without Contrast Exam date and time: 06/28/2024 1:30 AM Age: 84 years old Clinical indication: Other: Afib; Additional info: Possible stroke TECHNIQUE: Imaging protocol: Computed tomography of the head without contrast. Radiation optimization: All CT scans at this facility use at least one of these dose optimization techniques: automated exposure control; mA and/or kV adjustment per patient size (includes targeted exams where dose is matched to clinical indication); or iterative reconstruction. COMPARISON: No relevant prior studies available. RADIATION DOSE METRICS: Total DLP (mGy-cm): 1205.38 FINDINGS: Brain: No acute intracranial hemorrhage, mass effect or midline shift. White matter hypodensities most likely from chronic microangiopathy. Cerebral ventricles: Ex vacuo expansion of the ventricles due to volume loss. Paranasal sinuses: Visualized sinuses are unremarkable. No fluid levels. Mastoid air cells: Diffuse bilateral mastoid effusion. Bones: No acute bony findings. Soft tissues: Unremarkable. CT/CT head wo con* [id number] IMPRESSION: 1. No acute intracranial findings. 2. 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 3. Diffuse bilateral mastoid effusion. Correlate for mastoiditis.
--- NOTE | 2024-06-28 01:23 | ECG_ITS ---
ERROR Please disregard all previous reports and links for this order result. ERROR [email or web address]
[2024-06-28 01:39] LABS: Basophils # 0.1 10^3/uL (0.0-0.1); Basophils % 0.8 %; Eosinophils # 0.2 10^3/uL (0.0-0.8); Eosinophils % 2.2 %; Hematocrit 41.6 % (37-53); Lymphocytes # 2.8 10^3/uL (0.8-4.8); Lymphocytes % 33.7 %; Mean Corpuscular HGB Conc 33.9 g/dL (30-55); Mean Corpuscular Hemoglobin 32.7 pg (27-33); Mean Corpuscular Volume 96.5 fl (82-101); Mean Platelet Volume 8.4 fL (7.4-10.4); Monocytes # 0.9 10^3/uL (0.2-0.9); Monocytes % 10.3 %; Neutrophils # 4.37 10^3/uL (1.8-7.7); Neutrophils % 52.8 %; Nucleated Red Blood Cells % 0 %; Platelet Count 210 10^3/cmm (157-399); Red Blood Count 4.31 10^6/uL (3.85-5.65); Red Cell Distribution Width 12.4 % (12.1-15.1); White Blood Count 8.28 10^3/uL (3.29-11.43)
--- NOTE | 2024-06-28 01:48 | XRR_ITS ---
PROCEDURE INFORMATION: Exam: XR Chest Exam date and time: 06/28/2024 1:58 AM Age: 84 years old Clinical indication: Other: Palpitations TECHNIQUE: Imaging protocol: Radiologic exam of the chest. Views: 1 view. COMPARISON: CR (CHEST, ) 06/26/2024 12:47 AM FINDINGS: Lungs: No consolidation. Pleural spaces: No pleural effusion. No pneumothorax. Heart/Mediastinum: No cardiomegaly. Bones/joints: No acute findings. XR/XR chest 1V portable [id number] IMPRESSION: No acute chest findings.
[2024-06-28 01:53] LABS: Troponin(5th) Baseline 16 ng/L (0-15)
[2024-06-28 01:56] LABS: Alanine Aminotransferase 18 U/L (0-41); Albumin Level 4.2 g/dL (3.5-5.2); Alkaline Phosphatase 118 U/L (40-130); Anion Gap 15.3 (5-19); Aspartate Amino Transferase 23 U/L (0-40); Blood Urea Nitrogen 14 mg/dL (8-23); Calcium 8.5 mg/dL (8.5-10.5); Carbon Dioxide 24 mmol/L (22-29); Chloride 102 mmol/L (98-107); Creatinine Clr Calc Pharmacy 68.2535; Glucose 129 mg/dL (65-115); Osmolality Calculated 286 mOsm/kg (285-295); Potassium 4.3 mmol/L (3.5-5.1); Sodium 137 mmol/L (136-145); Total Bilirubin 0.2 mg/dL (0.15-1.2); Total Protein 6.2 g/dL (6.6-8.7)
[2024-06-28 02:04] LABS: Bilirubin Urine Negative (Negative); Blood Urine Negative (Negative); Glucose Urine UA Negative (Normal); Ketones Urine Negative (Negative); Leukocyte Esterase Urine Negative (Negative); Nitrate Urine Negative (Negative); Protein Urine Negative (Negative); Specific Gravity, Urine 1.005 (1.005-1.030); Urine Appearance Clear (CLEAR); Urine Color Yellow (Yellow); Urobilinogen Urine 0.2 mg/dL (Negative)
--- NOTE | 2024-06-28 02:10 | W.ED.GENADLT ---
HPI - General Adult General: Chief complaint: General Medical Stated complaint: A Fib Time Seen by Provider: 06/28/24 01:20 History of Present Illness: 84-year-old man who presents emergency room with atrial fibrillation. He says his rate has been going up and down. He is seen in the emergency room the other day for it and he took a diltiazem and whenever I examined him he converted back to sinus. He took his prescribed as needed diltiazem at home. He has known A-fib. He is not on any blood thinner. No chest pain. No shortness of breath. No lower extremity swelling. Related Data Home Medications Medication Instructions Recorded Confirmed ascorbate calcium (vitamin C) 500 500 mg PO QAM 12/12/20 04/05/24 mg tablet flaxseed oil 1,000 mg capsule 1,000 mg PO QAM 12/12/20 04/05/24 selenium 100 mcg tablet 100 mcg PO QAM 12/12/20 04/05/24 melatonin 5 mg tablet 5 mg PO BEDTIME 06/02/23 04/05/24 omega-3 fatty acids 1,000 mg 1,000 mg PO QAM 06/02/23 04/05/24 capsule calcium 333 mg-vit D3 133 1 tab PO BID 09/06/23 04/05/24 unit-magnesium 133 mg-zinc 5 mg tablet (Mike Mag Zinc Plus D3) phenytoin sodium extended 100 mg 100 mg PO BID 09/06/23 04/05/24 capsule (Dilantin Extended) vit C 250 mg-vit E 90 mg-zinc 40 1 tab PO BID 09/06/23 04/05/24 mg-copper 1 [id number] capsule (PreserVision AREDS-2) clopidogrel 75 mg tablet 75 mg PO DAILY 12/03/23 04/05/24 doxycycline hyclate 100 mg tablet 100 mg PO DAILY PRN eye infection 12/03/23 04/05/24 aspirin 81 mg tablet,delayed 81 mg PO DAILY 01/01/24 04/05/24 release vitamin B complex 1 tab PO DAILY 01/01/24 04/05/24 Previous Rx's Medication Instructions Recorded metoprolol tartrate 100 mg tablet 100 mg PO BID #60 tabs 10/24/23 diclofenac sodium 75 mg 75 mg PO Q12H PRN pain #20 tabs 05/03/24 tablet,delayed release cefdinir 300 mg capsule 300 mg PO BID #14 caps 03/26/24 diltiazem HCl 30 mg tablet 30 mg PO Q6H PRN fast heart rate 06/26/24 #60 tabs Allergies Allergy/AdvReac Type Severity Reaction Status Date / Time levetiracetam [From [facility]] Allergy ADR-Halluci Verified 06/28/24 01:22 nating Review of Systems Narrative: Constitutional symptoms: Negative except as documented in HPI. Skin symptoms: Negative except as documented in HPI. Eye symptoms: Negative except as documented in HPI. ENMT symptoms: Negative except as documented in HPI. Respiratory symptoms: Negative except as documented in HPI. Cardiovascular symptoms: Negative except as documented in HPI. Gastrointestinal symptoms: Negative except as documented in HPI. Genitourinary symptoms: Negative except as documented in HPI. Musculoskeletal symptoms: Negative except as documented in HPI. Neurologic symptoms: Negative except as documented in HPI. Psychiatric symptoms: Negative except as documented in HPI. Endocrine symptoms: Negative except as documented in HPI. PFSH ED PFSH: Medical History Atrial fibrillation with RVR Anxiety Atrial fibrillation with rapid ventricular response Atrial fibrillation, new onset Urethral stricture Lower urinary tract symptoms (LUTS) Surgical History Hx of tonsillectomy H/O arthroscopy of knee left History of carpal tunnel release left H/O rotator cuff surgery left Family History Father , at age 63 Cancer tongue Mother , at age 64 Lung disease Social History Smoking and tobacco/nicotine status: never used tobacco/nicotine Alcohol intake: current Alcohol intake frequency: 0-2 Drinks per Day Marital status: Current occupational status: retired Physical Exam Narrative: EXAM NARRATIVE: General: Alert, no acute distress. Skin: Warm, dry. Head: Normocephalic, atraumatic. Neck: Supple, trachea midline. Eye: Extraocular movements are intact. Ears, nose, mouth and throat: mucosa moist. Cardiovascular: Irregularly irregular, tachycardic, Normal peripheral perfusion. Respiratory: Lungs are clear to auscultation, respirations are non-labored, breath sounds are equal, Symmetrical chest wall expansion. Gastrointestinal: Soft, Nontender, Non distended Musculoskeletal: Normal ROM, no deformity. Neurological: Alert and oriented, No focal neurological deficit observed. Psychiatric: Cooperative, appropriate mood & affect. Course Vital Signs: Vital signs: Vital Signs Temperature 97.5 F L 06/28/24 01:18 Pulse Rate 99 06/28/24 02:00 Respiratory Rate 15 06/28/24 02:00 Blood Pressure 118/67 06/28/24 02:00 Pulse Oximetry 99 06/28/24 02:00 Oxygen Delivery Me thod Room Air 06/28/24 02:00 MDM - General Adult Medical Decision Making Medical decision making: Differential diagnosis including but not limited to and based on the above HPI, review of systems and physical exam: for patient with palpitations: atrial fibrillation with rapid ventricular response. ventricular tachycardia. sinus tachycardia. PVCs. also concern for underlying issues causing tachycardia. Infection, electrolyte abnormalities and thyroid issues Orders placed to evaluate differential diagnosis based on the above differential, HPI and physical exam EKG: Time 1:15 AM. Rate 104. Atrial fibrillation with rapid ventricular response, No ST-T changes, no ectopy, This was reviewed and interpreted by myself the ER physician at 1:20 AM. EKG: Time 2:32 AM. Rate 99. First half of EKG he is in A-fib with RVR. Second half he converts to sinus rhythm. Normal sinus rhythm, No ST-T changes, no ectopy, normal MS & QRS intervals, This was reviewed and interpreted by myself the ER physician at 2:35 AM. Different from EKG done previously today and that he has converted during this EKG to sinus rhythm. Chest x-ray: No acute process. No infiltrate. No pneumothorax. This was reviewed and interpreted by myself the ER physician. Lab Review: Laboratory results were reviewed and interpreted by myself the emergency room physician. Lab work is unremarkable. White count is 8. Hemoglobin is 14. BUN and creatinine are normal at 14 and 0.8. Initial troponin is 16. Urinalysis is negative for infection I reviewed the patient's medical record. Reexamination: Patient has now remained in sinus rhythm. He had no chest pain. Basically symptom-free. No shortness of breath. No leg swelling. Discussed findings and that he needs to follow with his community service aide and he understands. Assessment and plan Atrial fibrillation with rapid ventricular response - Discharged home - Discussed plan with patient. Answered any questions. - Evaluation and treatment of this problem were appropriate in the emergency setting. Lab Data 06/28/24 01:28 06/28/24 01:[address] 06/28/24 01:22 IMPRESSION: 1. No acute intracranial findings. 2. 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 3. Diffuse bilateral mastoid effusion. Correlate for mastoiditis. Chest X-Ray 06/28/24 01:48 IMPRESSION: No acute chest findings. Laboratory Results WBC 8.28 10^3/uL (3.29-11.43) 06/28/24 01:28 RBC 4.31 10^6/uL (3.85-5.65) 06/28/24 01:28 Hgb 14.10 g/dL (11.27-16.99) 06/28/24 01: Hct 41.6 % (37-53) 06/28/24 01: MCV 96.5 fl (82-101) 06/28/24 01:28 MCH 32.7 pg (27-33) 06/28/24 01: MCHC 33.9 g/dL (30-55) 06/28/24: RDW 12.4 % (12.1-15.1) 06/28/24 01:28 Plt Count 210 10^3/cmm (157-399) 06/28/24 01:28 MPV 8.4 fL (7.4-10.4) 06/28/24 01: Neut % (Auto) 52.8 % 06/28/24 01: Lymph % (Auto) 33.7 % 06/28/24 01: [place] % (Auto) 10.3 % 06/28/24: Eos % (Auto) 2.2 % 06/28/24: Baso % (Auto) 0.8 % 06/28/24 01:28 Neut # (Auto) 4.37 10^3/uL (1.8-7.7) 06/28/24 01: Lymph # (Auto) 2.8 10^3/uL (0.8-4.8) 06/28/24 01:28 [place] # (Auto) 0.9 10^3/uL (0.2-0.9) 06/28/24 01:28 Eos # (Auto) 0.2 10^3/uL (0.0-0.8) 06/28/24 01:28 Baso # (Auto) 0.1 10^3/uL (0.0-0.1) 06/28/24 01:28 Nucleated RBC % (auto) 0 % 06/28/24 01:28 Nucleated RBCs # 0.0 /100WBC 06/28/24 01:28 Sodium 137 mmol/L (136-145) 06/28/24 01:28 Potassium 4.3 mmol/L (3.5-5.1) 06/28/24 01:28 Chloride 102 mmol/L (98-107) 06/28/24 01:28 Carbon Dioxide 24 mmol/L (22-29) 06/28/24 01:28 Anion Gap 15.3 (5-19) 06/28/24 01:28 BUN 14 mg/dL (8-23) 06/28/24 01:28 Creatinine 0.8 mg/dL (0.7-1.2) 06/28/24 01:28 GFR Calculation Not Reportable 06/28/24 01:28 Glucose 129 mg/dL (65-115) H 06/28/24 01:28 Calculated Osmolality 286 mOsm/kg (285-295) 06/28/24 01:28 Calcium 8.5 mg/dL (8.5-10.5) 06/28/24 01:28 Total Bilirubin 0.2 mg/dL (0.15-1.2) 06/28/24 01:28 AST 23 U/L (0-40) 06/28/24 01:28 ALT 18 U/L (0-41) 06/28/24 01:28 Alkaline Phosphatase 118 U/L (40-130) 06/28/24 01:28 Troponin T Baseline 16 ng/L (0-15) H 06/28/24 01:28 Troponin T 120 Minute 18.37 ng/L (0-15) H 06/28/24 03:22 Delta Troponin T 2.37 ABS# (0-10) 06/28/24 03:22 Total Protein 6.2 g/dL (6.6-8.7) L 06/28/24 01:28 Albumin 4.2 g/dL (3.5-5.2) 06/28/24 01:28 Globulin 2.0 g/dL (1.3-4.6) 06/28/24 01:28 Urine Color Yellow (Yellow) 06/28/24 01:43 Urine Appearance Clear (CLEAR) 06/28/24 01:43 Urine pH 7.0 (5-7) 06/28/24 01:43 Ur Specific [place] 1.005 (1.005-1.030) 06/28/24 01:43 Urine Protein Negative (Negative) 06/28/24 01:43 Urine Glucose (UA) Negative (Normal) 06/28/24 01:43 Urine Ketones Negative (Negative) 06/28/24 01:43 Urine Blood Negative (Negative) 06/28/24 01:43 Urine Nitrate Negative (Negative) 06/28/24 01:43 Urine Bilirubin Negative (Negative) 06/28/24 01:43 Urine Urobilinogen 0.2 mg/dL (Negative) 06/28/24 01:43 Ur Leukocyte Esterase Negative (Negative) 06/28/24 01:43 Urine RBC None /hpf (0-2) 06/28/24 01:43 Urine WBC 0-4 /hpf (0-5) H 06/28/24 01:43 Ur Squamous Epith Cells None /hpf (0-5) 06/28/24 01:43 Amorphous Sediment Not Reportable 06/28/24 01:43 Urine Bacteria None /hpf (NONE) 06/28/24 01:43 All radiology interpretation(s) finalized by discharge Discharge Plan Discharge Patient Disposition: Home Clinical Impression: Atrial fibrillation with rapid ventricular response Condition: Stable Prescriptions: No Action ascorbate calcium (vitamin C) 500 mg tablet 500 mg PO QAM flaxseed oil 1,000 mg capsule 1,000 mg PO QAM Rx Instructions: administer with a meal selenium 100 mcg tablet 100 mcg PO QAM clopidogrel 75 mg tablet 75 mg PO DAILY doxycycline hyclate 100 mg tablet 100 mg PO DAILY PRN (Reason: eye infection) melatonin 5 mg Tablet 5 mg PO BEDTIME omega-3 fatty acids 1,000 mg Capsule 1,000 mg PO QAM phenytoin sodium extended [Dilantin Extended] 100 mg capsule 100 mg PO BID Mike Mag Zinc Plus D3 333 mg-133 unit -133 mg-5 mg Tablet 1 tab PO BID PreserVision AREDS-2 250-90-40-1 mg Capsule 1 tab PO BID metoprolol tartrate 100 mg tablet 100 mg PO BID Qty: 60 1RF diclofenac sodium 75 mg tablet,delayed release (DR/EC) 75 mg PO Q12H PRN (Reason: pain) Qty: 20 0RF Aspir-81 81 mg Tablet,Delayed Release (Dr/Ec) 81 mg PO DAILY vitamin B complex Tablet 1 tab PO DAILY cefdinir 300 mg capsule 300 mg PO BID Qty: 14 0RF diltiazem HCl 30 mg tablet 30 mg PO Q6H PRN (Reason: fast heart rate) Qty: 60 0RF Discharge Orders: Discharge ED (Routine); Ordered 06/28/24 Ordered By: Kaela Denny Referrals: Darell Jackson MD [Primary Care Provider] - Discharge Diet: Usual diet Discharge Activity: Increase activity as tolerated Patient Instructions: A-fib (Atrial Fibrillation) (ED) Activity Restrictions/Additional Instructions: You need to have follow-up with your primary care provider and/or your community service aide to discuss better control of your rate and also to consider anticoagulation. Thank you for choosing [facility] for your healthcare needs today. Please realize this is an emergency room and that we are providing you with a medical screening exam and this may not be complete and all inclusive of all the testing and or work up that you may need to determine your ailment or severity of your illness. You have been screened and evaluated and felt safe for discharge. Health conditions do change or evolve sometimes and as such it is important that you follow up with your Primary Doctor to be re checked, 3-5 days is a general good time frame for follow up. You are always welcome to return to the ED for re assessment if your symptoms are worsening or you have new concerns Coding Level of Care Code ED [employer]
[2024-06-28 02:15] LABS: WBC Urine 0-4 /hpf (0-5)
--- NOTE | 2024-06-28 02:25 | PC.NURSE ---
Monitor noted to be afib with RVR. Pt denies symptoms. Pt is in NAD. EKG obtained and while EKG being obtained, pt converted to sinus rhythm. aware.
--- NOTE | 2024-06-28 03:23 | ECG_ITS ---
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 Measurements Intervals [place] Rate: 104 P: 0 WA: 0 QRS: 20 QRSD: 85 T: 73 QT: 318 QTc: 419 Interpretive Statements ATRIAL FIBRILLATION WITH RAPID VENTRICULAR RESPONSE Compared to ECG 06/25/2024 23:34:07, NO SIGNIFICANT CHANGE Electronically Signed On 06-28-2024 11:13:40 CDT by Norberto Lozoya M.D. [email or web address]
[2024-06-28 03:44] LABS: Troponin 5 2HR 18.37 ng/L (0-15); Troponin 5 2HR Delta 2.37 ABS# (0-10)
--- NOTE | 2024-06-28 07:23 | ECG_ITS ---
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 Measurements Intervals [place] Rate: 140 P: 0 IA: 0 QRS: 9 QRSD: 89 T: 82 QT: 263 QTc: 402 Interpretive Statements ATRIAL FIBRILLATION WITH RAPID VENTRICULAR RESPONSE NONSPECIFIC ST & T-WAVE ABNORMALITY ABNORMAL RHYTHM ECG Compared to ECG 06/25/2024 23:34:07 A Fib rate is increased Electronically Signed On 06-28-2024 11:11:58 CDT by Norberto Lozoya M.D. [email or web address]
== END 2024-06-28 04:23 | disposition home or self-care (01) ==
PROVIDERS: Emergency Provider Emergency Medicine; PCP Family Medicine
DX: I48.20 Chronic atrial fibrillation, unspecified (principal); Z79.02 Long term (current) use of antithrombotics/antiplatelets
CPT/HCPCS: 70450; 71045; 80053; 81001; 84484; 85025; 93005; 99285

== ENCOUNTER 2024-07-01 16:18 | Emergency (ER) | payer MEDICARE, SELFPAY ==
--- NOTE | 2024-07-01 16:21 | XRR_ITS ---
PROCEDURE INFORMATION: Exam: XR Chest Exam date and time: 07/01/2024 4:36 PM Age: 84 years old Clinical indication: Pain; Chest pressure; Additional info: Chest pain TECHNIQUE: Imaging protocol: Radiologic exam of the chest. Views: 1 view. COMPARISON: CR (CHEST, ) 06/28/2024 1:58 AM FINDINGS: Tubes, catheters and devices: Watchman device at the level of the left atrial appendage, as noted with prior exam. Lungs: No infiltrate or consolidation. Pulmonary vascularity is within normal limits. Small benign calcified granuloma left lung apex. Pleural spaces: No pleural effusion or pneumothorax. Heart/Mediastinum: Unremarkable. No cardiomegaly. Vasculature: Mild arteriosclerosis of the thoracic aorta. Bones/joints: Visualized osseous structures show no acute abnormality. Previous resection distal left clavicle. Chronic calcifications right shoulder with prior exam. 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 XR/XR chest 1V portable [id number] IMPRESSION: No acute cardiopulmonary abnormality.
[2024-07-01 16:25] VITALS: BP 115/64; PULSE 63; RESP 18; TEMP 36.7; O2SAT 97
--- NOTE | 2024-07-01 16:27 | ECG_ITS ---
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 Measurements Intervals [place] Rate: 61 P: 68 IA: 210 QRS: 1 QRSD: 83 T: 38 QT: 370 QTc: 374 Interpretive Statements SINUS RHYTHM WITH FIRST DEGREE AV BLOCK LOW QRS VOLTAGE IN PRECORDIAL LEADS Compared to ECG 06/28/2024 02:32:12 First degree AV block now present Low QRS voltage now present Atrial fibrillation no longer present Electronically Signed On 07-02-2024 13:43:01 CDT by Norberto Lozoya M.D. [email or web address]
[2024-07-01 16:58] VITALS: BP 106/52; PULSE 63; RESP 18; O2SAT 96
--- NOTE | 2024-07-01 16:58 | W.ED.CHESTPA ---
Documented by User: Brett Engel DO 07/02/24 07:04 HPI - Chest Pain General: Chief Complaint: Chest Pain Stated Complaint: CP, feels tired, hx chest pain Time Seen by Provider: 07/01/24 16:54 History of Present Illness: 84-year-old male patient presents with chest pain and a long history of AFib. The pain occurs primarily when sitting and sometimes when walking. It started yesterday, possibly a little the day before, and is associated with fatigue. The patient denies any previous heart attacks, stents, or recent changes in medication. The patient takes 100 mg of metoprolol twice a day and has not missed any doses recently. The patient reports lightheadedness during episodes, with the worst episode occurring a week and a half ago, characterized by shaking and teeth chattering. The patient denies shortness of breath or sweating during episodes but notes a slight shortness of breath when lying down, which started a couple of nights ago. The patient has not had any stress tests or angiograms. Associated symptoms: Deny abdominal pain, dyspnea or fever(s) Related Data Home Medications Medication Instructions Recorded Confirmed ascorbate calcium (vitamin C) 500 500 mg PO QAM 12/12/20 04/05/24 mg tablet flaxseed oil 1,000 mg capsule 1,000 mg PO QAM 12/12/20 04/05/24 selenium 100 mcg tablet 100 mcg PO QAM 12/12/20 04/05/24 melatonin 5 mg tablet 5 mg PO BEDTIME 06/02/23 04/05/24 omega-3 fatty acids 1,000 mg 1,000 mg PO QAM 06/02/23 04/05/24 capsule calcium 333 mg-vit D3 133 1 tab PO BID 09/06/23 04/05/24 unit-magnesium 133 mg-zinc 5 mg tablet (Mike Mag Zinc Plus D3) phenytoin sodium extended 100 mg 100 mg PO BID 09/06/23 04/05/24 capsule (Dilantin Extended) vit C 250 mg-vit E 90 mg-zinc 40 1 tab PO BID 09/06/23 04/05/24 mg-copper 1 pt-[id number]-[id number] capsule (PreserVision AREDS-2) clopidogrel 75 mg tablet 75 mg PO DAILY 12/03/23 04/05/24 doxycycline hyclate 100 mg tablet 100 mg PO DAILY PRN eye infection 12/03/23 04/05/24 aspirin 81 mg tablet,delayed 81 mg PO DAILY 01/01/24 04/05/24 release vitamin B complex 1 tab PO DAILY 01/01/24 04/05/24 Previous Rx's Medication Instructions Recorded metoprolol tartrate 100 mg tablet 100 mg PO BID #60 tabs 10/24/23 diclofenac sodium 75 mg 75 mg PO Q12H PRN pain #20 tabs 01/01/24 tablet,delayed release cefdinir 300 mg capsule 300 mg PO BID #14 caps 03/26/24 diltiazem HCl 30 mg tablet 30 mg PO Q6H PRN fast heart rate 06/26/24 #60 tabs Allergies Allergy/AdvReac Type Severity Reaction Status Date / Time levetiracetam [From [facility]] Allergy ADR-Halluci Verified 06/28/24 01:22 nating Review of Systems Const: Denies: fever(s) or chills Card: Reports: chest pain Resp: Denies: dyspnea GI: Denies: abdominal pain : Denies: dysuria, urinary frequency or urinary urgency Musc: Denies: neck pain or back pain Skin/Breast: Denies: rash PFSH ED PFSH: Medical History Atrial fibrillation with RVR Anxiety Atrial fibrillation with rapid ventricular response Atrial fibrillation, new onset Urethral stricture Lower urinary tract symptoms (LUTS) Surgical History Hx of tonsillectomy H/O arthroscopy of knee left History of carpal tunnel release left H/O rotator cuff surgery left Family History Father , at age 63 Cancer tongue Mother , at age 64 Lung disease Social History Smoking and tobacco/nicotine status: never used tobacco/nicotine Alcohol intake: current Alcohol intake frequency: 0-2 Drinks per Day Marital status: Current occupational status: retired Physical Exam Const: GENERAL APPEARANCE: cooperative ORIENTATION/CONSCIOUSNESS: Yes awake, Yes oriented to person, Yes oriented to place and Yes oriented to time HENMT: COMMON NORMALS: normocephalic, atraumatic and hearing grossly normal bilaterally HEAD & SCALP: normocephalic and atraumatic Resp: COMMON NORMALS: normal respiratory effort, No retractions, No use of accessory muscles and clear to auscultation bilaterally AUSCULTATION: clear to auscultation bilaterally Cardio: COMMON NORMALS: regular rate, regular rhythm and No murmurs present (Cardio) RATE: regular rate RHYTHM: regular rhythm GI: COMMON NORMALS: Soft to palpation and No hepatosplenomegaly present AUSCULTATION: Yes normoactive bowel sounds PALPATION: Yes Soft to palpation, No Tenderness to palpation present (GI), No Guarding due to palpation present (GI) and Yes No hepatosplenomegaly present Extremity: COMMON NORMALS: normal to inspection, capillary refill normal, no clubbing, cyanosis or edema, no calf tenderness and no pedal edema Neuro: SENSORIUM/ORIENTATION: Yes oriented to person, Yes oriented to place and Yes oriented to time Skin: COMMON NORMALS: no rashes or lesions noted GENERAL SKIN EXAM: no rashes or lesions noted Course Vital Signs: Vital signs: Vital Signs Temperature 98.1 F 07/01/24 16:25 Pulse Rate 64 07/01/24 20:20 Respiratory Rate 14 07/01/24 20:20 Blood Pressure 134/78 07/01/24 20:20 Pulse Oximetry 96 07/01/24 20:20 Oxygen Delivery Me thod Room Air 07/01/24 19:32 MDM - Chest Pain Medical Decision Making Care signed out to Dr. Somers at change of shift. See final notes for diagnosis and disposition. Lab Data 07/01/24 17:07 07/01/24 17:07 Radiology Impressions Chest X-Ray 07/01/24 16:21 IMPRESSION: No acute cardiopulmonary abnormality. Laboratory Results WBC 6.35 10^3/uL (3.29-11.43) 07/01/24 17:07 RBC 4.16 10^6/uL (3.85-5.65) 07/01/24 17:07 Hgb 13.60 g/dL (11.27-16.99) 07/01/24 17:07 Hct 40.2 % (37-53) 07/01/24 17:07 MCV 96.6 fl (82-101) 07/01/24 17:07 MCH 32.7 pg (27-33) 07/01/24 17:07 MCHC 33.8 g/dL (30-55) 07/01/24 17:07 RDW 12.5 % (12.1-15.1) 07/01/24 17:07 Plt Count 187 10^3/cmm (157-399) 07/01/24 17:07 MPV 8.5 fL (7.4-10.4) 07/01/24 17:07 Neut % (Auto) 50.2 % 07/01/24 17:07 Lymph % (Auto) 35.4 % 07/01/24 17:07 [place] % (Auto) 11.3 % 07/01/24 17:07 Eos % (Auto) 2.0 % 07/01/24 17:07 Baso % (Auto) 0.9 % 07/01/24 17:07 Neut # (Auto) 3.18 10^3/uL (1.8-7.7) 07/01/24 17:07 Lymph # (Auto) 2.3 10^3/uL (0.8-4.8) 07/01/24 17:07 [place] # (Auto) 0.7 10^3/uL (0.2-0.9) 07/01/24 17:07 Eos # (Auto) 0.1 10^3/uL (0.0-0.8) 07/01/24 17:07 Baso # (Auto) 0.1 10^3/uL (0.0-0.1) 07/01/24 17:07 Nucleated RBC % (auto) 0 % 07/01/24 17:07 Nucleated RBCs # 0.0 /100WBC 07/01/24 17:07 Sodium 136 mmol/L (136-145) 07/01/24 17:07 Potassium 4.7 mmol/L (3.5-5.1) 07/01/24 17:07 Chloride 104 mmol/L (98-107) 07/01/24 17:07 Carbon Dioxide 24 mmol/L (22-29) 07/01/24 17:07 Anion Gap 12.7 (5-19) 07/01/24 17:07 BUN 18 mg/dL (8-23) 07/01/24 17:07 Creatinine 0.7 mg/dL (0.7-1.2) 07/01/24 17:07 GFR Calculation Not Reportable 07/01/24 17:07 Glucose 108 mg/dL (65-115) 07/01/24 17:07 Calculated Osmolality 284 mOsm/kg (285-295) L 07/01/24 17:07 Calcium 8.6 mg/dL (8.5-10.5) 07/01/24 17:07 Total Bilirubin 0.2 mg/dL (0.15-1.2) 07/01/24 17:07 AST 18 U/L (0-40) 07/01/24 17:07 ALT 16 U/L (0-41) 07/01/24 17:07 Alkaline Phosphatase 111 U/L (40-130) 07/01/24 17:07 Troponin T Baseline 12 ng/L (0-15) 07/01/24 17:07 Troponin T 120 Minute 9.37 ng/L (0-15) 07/01/24 18:57 Delta Troponin T -2.63 ABS# (0-10) L 07/01/24 18:57 Total Protein 5.5 g/dL (6.6-8.7) L 07/01/24 17:07 Albumin 4.3 g/dL (3.5-5.2) 07/01/24 17:07 Globulin 1.2 g/dL (1.3-4.6) L 07/01/24 17:07 Discharge Plan Discharge Patient Disposition: Home Clinical Impression: Chest pain Atrial fibrillation Qualifiers: Atrial fibrillation type: unspecified Qualified Code(s): I48.91 - Unspecified atrial fibrillation Condition: Stable Prescriptions: No Action ascorbate calcium (vitamin C) 500 mg tablet 500 mg PO QAM flaxseed oil 1,000 mg capsule 1,000 mg PO QAM Rx Instructions: administer with a meal selenium 100 mcg tablet 100 mcg PO QAM clopidogrel 75 mg tablet 75 mg PO DAILY doxycycline hyclate 100 mg tablet 100 mg PO DAILY PRN (Reason: eye infection) melatonin 5 mg Tablet 5 mg PO BEDTIME omega-3 fatty acids 1,000 mg Capsule 1,000 mg PO QAM phenytoin sodium extended [Dilantin Extended] 100 mg capsule 100 mg PO BID Mike Mag Zinc Plus D3 333 mg-133 unit -133 mg-5 mg Tablet 1 tab PO BID PreserVision AREDS-2 250-90-40-1 mg Capsule 1 tab PO BID metoprolol tartrate 100 mg tablet 100 mg PO BID Qty: 60 1RF diclofenac sodium 75 mg tablet,delayed release (DR/EC) 75 mg PO Q12H PRN (Reason: pain) Qty: 20 0RF Aspir-81 81 mg Tablet,Delayed Release (Dr/Ec) 81 mg PO DAILY vitamin B complex Tablet 1 tab PO DAILY cefdinir 300 mg capsule 300 mg PO BID Qty: 14 0RF diltiazem HCl 30 mg tablet 30 mg PO Q6H PRN (Reason: fast heart rate) Qty: 60 0RF Discharge Orders: Discharge ED (Routine); Ordered 07/01/24 Ordered By: Robbie Somers Referrals: Darell Jackson MD [Primary Care Provider] - Patient Instructions: A-fib (Atrial Fibrillation) (ED), Chest Pain (ED), Opioid Safety, Pain Management Activity Restrictions/Additional Instructions: Be sure to follow-up with your heart doctor next week, at least by phone, regarding repeated episodes of fast irregular heart rates, and any chest discomfort or other symptoms associated with this. If your rate is out of control, you may continue to take diltiazem as needed to improve your rate at home. Return for any problems. Coding Level of Care Code ED Human Anatomy Teacher for Chg Fwd Documented by User: Robbie Somers, 07/01/24 21:38 HPI - Chest Pain General: Chief Complaint: Chest Pain Stated Complaint: CP, feels tired, hx chest pain Time Seen by Provider: 07/01/24 16:54 Related Data Home Medications Medication Instructions Recorded Confirmed ascorbate calcium (vitamin C) 500 500 mg PO QAM 12/12/20 04/05/24 mg tablet flaxseed oil 1,000 mg capsule 1,000 mg PO QAM 12/12/20 04/05/24 selenium 100 mcg tablet 100 mcg PO QAM 12/12/20 04/05/24 melatonin 5 mg tablet 5 mg PO BEDTIME 06/02/23 04/05/24 omega-3 fatty acids 1,000 mg 1,000 mg PO QAM 06/02/23 04/05/24 capsule calcium 333 mg-vit D3 133 1 tab PO BID 09/06/23 04/05/24 unit-magnesium 133 mg-zinc 5 mg tablet (Mike Mag Zinc Plus D3) phenytoin sodium extended 100 mg 100 mg PO BID 09/06/23 04/05/24 capsule (Dilantin Extended) vit C 250 mg-vit E 90 mg-zinc 40 1 tab PO BID 09/06/23 04/05/24 mg-copper 1 [id number] capsule (PreserVision AREDS-2) clopidogrel 75 mg tablet 75 mg PO DAILY 12/03/23 04/05/24 doxycycline hyclate 100 mg tablet 100 mg PO DAILY PRN eye infection 12/03/23 04/05/24 aspirin 81 mg tablet,delayed 81 mg PO DAILY 01/01/24 04/05/24 release vitamin B complex 1 tab PO DAILY 01/01/24 04/05/24 Previous Rx's Medication Instructions Recorded metoprolol tartrate 100 mg tablet 100 mg PO BID #60 tabs 10/24/23 diclofenac sodium 75 mg 75 mg PO Q12H PRN pain #20 tabs 01/01/24 tablet,delayed release cefdinir 300 mg capsule 300 mg PO BID #14 caps 03/26/24 diltiazem HCl 30 mg tablet 30 mg PO Q6H PRN fast heart rate 06/26/24 #60 tabs Allergies Allergy/AdvReac Type Severity Reaction Status Date / Time levetiracetam [From [facility]] Allergy ADR-Halluci Verified 06/28/24 01:22 [facility] ED [facility]: Medical History Atrial fibrillation with RVR Anxiety Atrial fibrillation with rapid ventricular response Atrial fibrillation, new onset Urethral stricture Lower urinary tract symptoms (LUTS) Surgical History Hx of tonsillectomy H/O arthroscopy of knee left History of carpal tunnel release left H/O rotator cuff surgery left Family History Father , at age 63 Cancer tongue Mother , at age 64 Lung disease Social History Smoking and tobacco/nicotine status: never used tobacco/nicotine Alcohol intake: current Alcohol intake frequency: 0-2 Drinks per Day Marital status: Current occupational status: retired Course Vital Signs: Vital signs: Vital Signs Temperature 98.1 F 07/01/24 16:25 Pulse Rate 64 07/01/24 20:20 Respiratory Rate 14 07/01/24 20:20 Blood Pressure 134/78 07/01/24 20:20 Pulse Oximetry 96 07/01/24 20:20 Oxygen Delivery Me thod Room Air 07/01/24 19:32 MDM - Chest Pain Medical Decision Making Care signed out to Dr. Somers at change of shift. See final notes for diagnosis and disposition. 84-year-old male patient checked out at shift change. This gentleman has been in several times with atrial fibrillation with various rates, some of which uncontrolled. Currently he has converted to sinus rhythm. His symptoms are gone, as with previous ER visits when he is in sinus. His chest x-ray is negative. His troponin did not change significantly, in fact felt by 2 points at 2 hours. His other laboratory is normal. He is encouraged to follow-up with his general science teacher. He does have as needed diltiazem he can take as needed for uncontrolled rates at home Lab Data 07/01/24 17:07 07/01/24 17:07 Radiology Impressions Chest X-Ray 07/01/24 16:21 IMPRESSION: No acute cardiopulmonary abnormality. Laboratory Results WBC 6.35 10^3/uL (3.29-11.43) 07/01/24 17:07 RBC 4.16 10^6/uL (3.85-5.65) 07/01/24 17:07 Hgb 13.60 g/dL (11.27-16.99) 07/01/24 17:07 Hct 40.2 % (37-53) 07/01/24 17:07 MCV 96.6 fl (82-101) 07/01/24 17:07 MCH 32.7 pg (27-33) 07/01/24 17:07 MCHC 33.8 g/dL (30-55) 07/01/24 17:07 RDW 12.5 % (12.1-15.1) 07/01/24 17:07 Plt Count 187 10^3/cmm (157-399) 07/01/24 17:07 MPV 8.5 fL (7.4-10.4) 07/01/24 17:07 Neut % (Auto) 50.2 % 07/01/24 17:07 Lymph % (Auto) 35.4 % 07/01/24 17:07 [place] % (Auto) 11.3 % 07/01/24 17:07 Eos % (Auto) 2.0 % 07/01/24 17:07 Baso % (Auto) 0.9 % 07/01/24 17:07 Neut # (Auto) 3.18 10^3/uL (1.8-7.7) 07/01/24 17:07 Lymph # (Auto) 2.3 10^3/uL (0.8-4.8) 07/01/24 17:07 [place] # (Auto) 0.7 10^3/uL (0.2-0.9) 07/01/24 17:07 Eos # (Auto) 0.1 10^3/uL (0.0-0.8) 07/01/24 17:07 Baso # (Auto) 0.1 10^3/uL (0.0-0.1) 07/01/24 17:07 Nucleated RBC % (auto) 0 % 07/01/24 17:07 Nucleated RBCs # 0.0 /100WBC 07/01/24 17:07 Sodium 136 mmol/L (136-145) 07/01/24 17:07 Potassium 4.7 mmol/L (3.5-5.1) 07/01/24 17:07 Chloride 104 mmol/L (98-107) 07/01/24 17:07 Carbon Dioxide 24 mmol/L (22-29) 07/01/24 17:07 Anion Gap 12.7 (5-19) 07/01/24 17:07 BUN 18 mg/dL (8-23) 07/01/24 17:07 Creatinine 0.7 mg/dL (0.7-1.2) 07/01/24 17:07 GFR Calculation Not Reportable 07/01/24 17:07 Glucose 108 mg/dL (65-115) 07/01/24 17:07 Calculated Osmolality 284 mOsm/kg (285-295) L 07/01/24 17:07 Calcium 8.6 mg/dL (8.5-10.5) 07/01/24 17:07 Total Bilirubin 0.2 mg/dL (0.15-1.2) 07/01/24 17:07 AST 18 U/L (0-40) 07/01/24 17:07 ALT 16 U/L (0-41) 07/01/24 17:07 Alkaline Phosphatase 111 U/L (40-130) 07/01/24 17:07 Troponin T Baseline 12 ng/L (0-15) 07/01/24 17:07 Troponin T 120 Minute 9.37 ng/L (0-15) 07/01/24 18:57 Delta Troponin T -2.63 ABS# (0-10) L 07/01/24 18:57 Total Protein 5.5 g/dL (6.6-8.7) L 07/01/24 17:07 Albumin 4.3 g/dL (3.5-5.2) 07/01/24 17:07 Globulin 1.2 g/dL (1.3-4.6) L 07/01/24 17:07 All radiology interpretation(s) finalized by discharge Discharge Plan Discharge Patient Disposition: Home Clinical Impression: Chest pain Atrial fibrillation Qualifiers: Atrial fibrillation type: unspecified Qualified Code(s): I48.91 - Unspecified atrial fibrillation Condition: Stable Prescriptions: No Action ascorbate calcium (vitamin C) 500 mg tablet 500 mg PO QAM flaxseed oil 1,000 mg capsule 1,000 mg PO QAM Rx Instructions: administer with a meal selenium 100 mcg tablet 100 mcg PO QAM clopidogrel 75 mg tablet 75 mg PO DAILY doxycycline hyclate 100 mg tablet 100 mg PO DAILY PRN (Reason: eye infection) melatonin 5 mg Tablet 5 mg PO BEDTIME omega-3 fatty acids 1,000 mg Capsule 1,000 mg PO QAM phenytoin sodium extended [Dilantin Extended] 100 mg capsule 100 mg PO BID Mike Mag Zinc Plus D3 333 mg-133 unit -133 mg-5 mg Tablet 1 tab PO BID PreserVision AREDS-2 250-90-40-1 mg Capsule 1 tab PO BID metoprolol tartrate 100 mg tablet 100 mg PO BID Qty: 60 1RF diclofenac sodium 75 mg tablet,delayed release (DR/EC) 75 mg PO Q12H PRN (Reason: pain) Qty: 20 0RF Aspir-81 81 mg Tablet,Delayed Release (Dr/Ec) 81 mg PO DAILY vitamin B complex Tablet 1 tab PO DAILY cefdinir 300 mg capsule 300 mg PO BID Qty: 14 0RF diltiazem HCl 30 mg tablet 30 mg PO Q6H PRN (Reason: fast heart rate) Qty: 60 0RF Discharge Orders: Discharge ED (Routine); Ordered 07/01/24 Ordered By: Robbie Somers Referrals: Darell Jackson MD [Primary Care Provider] - Patient Instructions: A-fib (Atrial Fibrillation) (ED), Chest Pain (ED), Opioid Safety, Pain Management Activity Restrictions/Additional Instructions: Be sure to follow-up with your heart doctor next week, at least by phone, regarding repeated episodes of fast irregular heart rates, and any chest discomfort or other symptoms associated with this. If your rate is out of control, you may continue to take diltiazem as needed to improve your rate at home. Return for any problems. Coding Level of Care Code ED Human Anatomy Teacher for More [employer]
[2024-07-01 17:15] LABS: Basophils # 0.1 10^3/uL (0.0-0.1); Basophils % 0.9 %; Eosinophils # 0.1 10^3/uL (0.0-0.8); Hematocrit 40.2 % (37-53); Lymphocytes # 2.3 10^3/uL (0.8-4.8); Lymphocytes % 35.4 %; Mean Corpuscular HGB Conc 33.8 g/dL (30-55); Mean Corpuscular Hemoglobin 32.7 pg (27-33); Mean Corpuscular Volume 96.6 fl (82-101); Mean Platelet Volume 8.5 fL (7.4-10.4); Monocytes # 0.7 10^3/uL (0.2-0.9); Monocytes % 11.3 %; Neutrophils # 3.18 10^3/uL (1.8-7.7); Neutrophils % 50.2 %; Nucleated Red Blood Cells % 0 %; Platelet Count 187 10^3/cmm (157-399); Red Blood Count 4.16 10^6/uL (3.85-5.65); Red Cell Distribution Width 12.5 % (12.1-15.1); White Blood Count 6.35 10^3/uL (3.29-11.43)
[2024-07-01 17:34] LABS: Alanine Aminotransferase 16 U/L (0-41); Albumin Level 4.3 g/dL (3.5-5.2); Alkaline Phosphatase 111 U/L (40-130); Anion Gap 12.7 (5-19); Aspartate Amino Transferase 18 U/L (0-40); Blood Urea Nitrogen 18 mg/dL (8-23); Calcium 8.6 mg/dL (8.5-10.5); Carbon Dioxide 24 mmol/L (22-29); Chloride 104 mmol/L (98-107); Globulin 1.2 g/dL (1.3-4.6); Glucose 108 mg/dL (65-115); Osmolality Calculated 284 mOsm/kg (285-295); Potassium 4.7 mmol/L (3.5-5.1); Sodium 136 mmol/L (136-145); Total Bilirubin 0.2 mg/dL (0.15-1.2); Total Protein 5.5 g/dL (6.6-8.7)
[2024-07-01 17:37] LABS: Troponin(5th) Baseline 12 ng/L (0-15)
[2024-07-01 17:58] VITALS: BP 110/52; PULSE 60; RESP 18; O2SAT 97
--- NOTE | 2024-07-01 18:20 | ECG_ITS ---
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 Measurements Intervals [place] Rate: 56 P: 60 DE: 158 QRS: 3 QRSD: 87 T: 47 QT: 380 QTc: 369 Interpretive Statements SINUS BRADYCARDIA LOW QRS VOLTAGE IN PRECORDIAL LEADS Compared to ECG 07/01/2024 16:27:12 Sinus rhythm no longer present First degree AV block no longer present Electronically Signed On 07-02-2024 13:49:19 CDT by Norberto Lozoya M.D. [email or web address]
[2024-07-01 18:30] VITALS: BP 118/62; PULSE 60; RESP 18; O2SAT 97
[2024-07-01 19:25] LABS: Troponin 5 2HR 9.37 ng/L (0-15)
[2024-07-01 19:28] LABS: Troponin 5 2HR Delta -2.63 ABS# (0-10)
[2024-07-01 19:32] VITALS: BP 148/80; PULSE 73; RESP 18; O2SAT 99
[2024-07-01 20:20] VITALS: BP 134/78; PULSE 64; RESP 14; O2SAT 96
== END 2024-07-01 20:02 | disposition home or self-care (01) ==
PROVIDERS: Physician Assistant; Emergency Provider Emergency Medicine; PCP Family Medicine
DX: I48.91 Unspecified atrial fibrillation (principal); R07.9 Chest pain, unspecified; Z79.02 Long term (current) use of antithrombotics/antiplatelets
CPT/HCPCS: 36415; 71045; 80053; 84484; 85025; 93005; 99285

== ENCOUNTER 2024-07-21 15:55 | Emergency (ER) | payer MEDICARE, SELFPAY ==
--- NOTE | 2024-07-21 15:57 | XRR_ITS ---
PROCEDURE INFORMATION: Exam: XR Chest Exam date and time: 07/21/2024 4:11 PM Age: 84 years old Clinical indication: Cardiovascular condition or disease; Atrial fibrillation; Patient HX: Afib and heart racing too fast. Started earlier today. PT has a HX of cardiac events. TECHNIQUE: Imaging protocol: Radiologic exam of the chest. Views: 1 view. COMPARISON: CR (CHEST, ) 07/01/2024 4:36 PM FINDINGS: Lungs: Unremarkable. No consolidation. Pleural spaces: Unremarkable. No pleural effusion. No pneumothorax. Heart/Mediastinum: Left atrial appendage occluder device. No cardiomegaly. 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 XR/XR chest 1V portable [id number] IMPRESSION: No acute findings.
--- NOTE | 2024-07-21 15:58 | ECG_ITS ---
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 Measurements Intervals [place] Rate: 127 P: 0 [place]: 0 QRS: -1 QRSD: 90 T: 93 QT: 289 QTc: 421 Interpretive Statements ATRIAL FIBRILLATION WITH RAPID VENTRICULAR RESPONSE NONSPECIFIC ST & T-WAVE ABNORMALITY Compared to ECG 07/01/2024 18:20:22 T-wave abnormality now present Sinus bradycardia no longer present Electronically Signed On 07-23-2024 10:28:25 OFFAL SEPARATOR by Naga Celis M.D. [email or web address]
[2024-07-21 16:00] VITALS: BP 147/81; PULSE 99; TEMP 36.5; O2SAT 98; BMI 24.1
--- NOTE | 2024-07-21 16:16 | ED_ITS ---
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 Patient states that roughly an hour ago he started feeling palpitations like he was in A-fib with RVR again. He denies any pain denies any shortness of breath denies any fevers vomiting or diarrhea Associated symptoms: Deny nausea or vomiting Related Data Home Medications Medication Instructions Recorded Confirmed ascorbate calcium (vitamin C) 500 500 mg PO QAM 12/12/20 04/05/24 mg tablet flaxseed oil 1,000 mg capsule 1,000 mg PO QAM 12/12/20 04/05/24 selenium 100 mcg tablet 100 mcg PO QAM 12/12/20 04/05/24 melatonin 5 mg tablet 5 mg PO BEDTIME 06/02/23 04/05/24 omega-3 fatty acids 1,000 mg 1,000 mg PO QAM 06/02/23 04/05/24 capsule calcium 333 mg-vit D3 133 1 tab PO BID 09/06/23 04/05/24 unit-magnesium 133 mg-zinc 5 mg tablet (Mike Mag Zinc Plus D3) phenytoin sodium extended 100 mg 100 mg PO BID 09/06/23 04/05/24 capsule (Dilantin Extended) vit C 250 mg-vit E 90 mg-zinc 40 1 tab PO BID 09/06/23 04/05/24 mg-copper 1 [id number] capsule (PreserVision AREDS-2) clopidogrel 75 mg tablet 75 mg PO DAILY 12/03/23 04/05/24 doxycycline hyclate 100 mg tablet 100 mg PO DAILY PRN eye infection 12/03/23 04/05/24 aspirin 81 mg tablet,delayed 81 mg PO DAILY 01/01/24 04/05/24 release vitamin B complex 1 tab PO DAILY 01/01/24 04/05/24 Previous Rx's Medication Instructions Recorded metoprolol tartrate 100 mg tablet 100 mg PO BID #60 tabs 10/24/23 diclofenac sodium 75 mg 75 mg PO Q12H PRN pain #20 tabs 01/01/24 tablet,delayed release cefdinir 300 mg capsule 300 mg PO BID #14 caps 03/26/24 diltiazem HCl 30 mg tablet 30 mg PO Q6H PRN fast heart rate 06/26/24 #60 tabs Allergies Allergy/AdvReac Type Severity Reaction Status Date / Time levetiracetam [From [facility]] Allergy ADR-Halluci Verified 07/21/24 16:09 nating Review of Systems 2 Const: Denies: fever(s), chills, body aches or change in appetite ENMT: Denies: throat pain or dental pain Card: Reports: palpitations; Denies: chest pain Resp: Denies: dyspnea GI: Denies: abdominal pain, nausea, vomiting or diarrhea Musc: Denies: neck pain or back pain Skin/Breast: Denies: rash Neuro: Denies: headache(s) PFSH ED 2 PFSH: Medical History Atrial fibrillation with RVR Anxiety Atrial fibrillation with rapid ventricular response Atrial fibrillation, new onset Urethral stricture Lower urinary tract symptoms (LUTS) Surgical History Hx of tonsillectomy H/O arthroscopy of knee left History of carpal tunnel release left H/O rotator cuff surgery left Family History Father , at age 63 Cancer tongue Mother , at age 64 Lung disease Social History Smoking and tobacco/nicotine status: never used tobacco/nicotine Alcohol intake: current Alcohol intake frequency: 0-2 Drinks per Day Marital status: Current occupational status: retired Physical Exam 2 Const: COMMON NORMALS: patient oriented x3 HENMT: COMMON NORMALS: normocephalic and atraumatic HEAD & SCALP: n ormocephalic and atraumatic Eye: COMMON NORMALS: conjunctivae normal CONJUNCTIVA: Yes conjunctivae normal Neck/C-Spine: COMMON NORMALS: full ROM and supple Chest: COMMONS NORMALS: normal inspection of the chest Resp: COMMON NORMALS: normal respiratory effort, No retractions, No use of accessory muscles and clear to auscultation bilaterally AUSCULTATION: clear to auscultation bilaterally Cardio: COMMON NORMALS: No murmurs present (Cardio) RATE: tachycardic R HYTHM: abnormal rhythm irregularly irregular Extremity: COMMON NORMALS: normal to inspection and full ROM Neuro: COMMON NORMALS: patient oriented x3, moves all extremities and no focal motor deficits Psych: COMMON NORMALS: mental status grossly normal, Normal thought process present and cooperative THOUGHT PROCESS: Normal thought process present Skin: COMMON NORMALS: no rashes or lesions noted and no wounds GENERAL SKIN EXAM: no rashes or lesions noted Course 2 Vital Signs: Vital signs: Vital Signs Temperature 97.7 F 07/21/24 16:00 Pulse Rate 62 07/21/24 17:00 Blood Pressure 97/68 07/21/24 17:00 Pulse Oximetry 94 07/21/24 17:00 Oxygen Delivery Me thod Room Air 07/21/24 17:00 MDM - Arrhythmia/Palpitations Medical Decision Making ptpresents here with afib with rvr heart rates much improved after dose of Cardizem it is in the 70s currently feels much improved he is well-appearing here blood works normal he stable for discharge follow-up with PCP return if worsening Medical Records I reviewed the patient's medical records. Lab Data I reviewed the patient's lab results. 07/21/24 16:13 07/21/24 16:13 Radiology Impressions Chest X-Ray 07/21/24 15:57 IMPRESSION: No acute findings. Laboratory Results WBC 7.87 10^3/uL (3.29-11.43) 07/21/24 16:13 RBC 4.53 10^6/uL (3.85-5.65) 07/21/24 16:13 Hgb 14.90 g/dL (11.27-16.99) 07/21/24 16:13 Hct 44.6 % (37-53) 07/21/24 16:13 MCV 98.5 fl (82-101) 07/21/24 16:13 MCH 32.9 pg (27-33) 07/21/24 16:13 MCHC 33.4 g/dL (30-55) 07/21/24 16:13 RDW 12.6 % (12.1-15.1) 07/21/24 16:13 Plt Count 231 10^3/cmm (157-399) 07/21/24 16:13 MPV 8.3 fL (7.4-10.4) 07/21/24 16:13 Neut % (Auto) 55.4 % 07/21/24 16:13 Lymph % (Auto) 32.8 % 07/21/24 16:13 [place] % (Auto) 9.5 % 07/21/24 16:13 Eos % (Auto) 1.7 % 07/21/24 16:13 Baso % (Auto) 0.5 % 07/21/24 16:13 Neut # (Auto) 4.36 10^3/uL (1.8-7.7) 07/21/24 16:13 Lymph # (Auto) 2.6 10^3/uL (0.8-4.8) 07/21/24 16:13 [place] # (Auto) 0.8 10^3/uL (0.2-0.9) 07/21/24 16:13 Eos # (Auto) 0.1 10^3/uL (0.0-0.8) 07/21/24 16:13 Baso # (Auto) 0.0 10^3/uL (0.0-0.1) 07/21/24 16:13 Nucleated RBC % (auto) 0 % 07/21/24 16:13 Nucleated RBCs # 0.0 /100WBC 07/21/24 16:13 Sodium 137 mmol/L (136-145) 07/21/24 16:13 Potassium 4.4 mmol/L (3.5-5.1) 07/21/24 16:13 Chloride 100 mmol/L (98-107) 07/21/24 16:13 Carbon Dioxide 28 mmol/L (22-29) 07/21/24 16:13 Anion Gap 13.4 (5-19) 07/21/24 16:13 BUN 13 mg/dL (8-23) 07/21/24 16:13 Creatinine 0.9 mg/dL (0.7-1.2) 07/21/24 16:13 GFR Calculation Not Reportable 07/21/24 16:13 Glucose 104 mg/dL (65-115) 07/21/24 16:13 Calculated Osmolality 284 mOsm/kg (285-295) L 07/21/24 16:13 Calcium 9.3 mg/dL (8.5-10.5) 07/21/24 16:13 Total Bilirubin 0.2 mg/dL (0.15-1.2) 07/21/24 16:13 AST 23 U/L (0-40) 07/21/24 16:13 ALT 18 U/L (0-41) 07/21/24 16:13 Alkaline Phosphatase 127 U/L (40-130) 07/21/24 16:13 Total Protein 7.1 g/dL (6.6-8.7) 07/21/24 16:13 Albumin 4.4 g/dL (3.5-5.2) 07/21/24 16:13 Globulin 2.7 g/dL (1.3-4.6) 07/21/24 16:13 All radiology interpretation(s) finalized by discharge EKG Data EKG 1: I personally reviewed and interpreted this EKG as follows: EKG interpretation date: 07/21/24 EKG interpretation time: 16:03 Interpretation: afib with rvr hr [address] elevation qrs 90 qtc 364 Other EKG comments: Chest X-Ray 07/21/24 15:57 IMPRESSION: No acute findings. Discharge Plan Discharge Patient Disposition: Home Clinical Impression: Atrial fibrillation with RVR Condition: Stable Prescriptions: No Action ascorbate calcium (vitamin C) 500 mg tablet 500 mg PO QAM flaxseed oil 1,000 mg capsule 1,000 mg PO QAM Rx Instructions: administer with a meal selenium 100 mcg tablet 100 mcg PO QAM clopidogrel 75 mg tablet 75 mg PO DAILY doxycycline hyclate 100 mg tablet 100 mg PO DAILY PRN (Reason: eye infection) melatonin 5 mg Tablet 5 mg PO BEDTIME omega-3 fatty acids 1,000 mg Capsule 1,000 mg PO QAM phenytoin sodium extended [Dilantin Extended] 100 mg capsule 100 mg PO BID Mike Mag Zinc Plus D3 333 mg-133 unit -133 mg-5 mg Tablet 1 tab PO BID PreserVision AREDS-2 250-90-40-1 mg Capsule 1 tab PO BID metoprolol tartrate 100 mg tablet 100 mg PO BID Qty: 60 1RF diclofenac sodium 75 mg tablet,delayed release (DR/EC) 75 mg PO Q12H PRN (Reason: pain) Qty: 20 0RF Aspir-81 81 mg Tablet,Delayed Release (Dr/Ec) 81 mg PO DAILY vitamin B complex Tablet 1 tab PO DAILY cefdinir 300 mg capsule 300 mg PO BID Qty: 14 0RF diltiazem HCl 30 mg tablet 30 mg PO Q6H PRN (Reason: fast heart rate) Qty: 60 0RF Discharge Orders: Discharge ED (Routine); Ordered 07/21/24 Ordered By: Jorge Cao Referrals: Darell Jackson MD [Primary Care Provider] - 4-7 days Discharge Diet: Advance as tolerated Discharge Activity: Resume usual activity Patient Instructions: A-fib (Atrial Fibrillation) (ED) Coding Level of Care Code ED High Raw Sugar Boiler for More Mallory
[2024-07-21 16:18] VITALS: PULSE 123; O2SAT 98
[2024-07-21 16:19] LABS: Basophils % 0.5 %; Eosinophils # 0.1 10^3/uL (0.0-0.8); Eosinophils % 1.7 %; Hematocrit 44.6 % (37-53); Lymphocytes # 2.6 10^3/uL (0.8-4.8); Lymphocytes % 32.8 %; Mean Corpuscular HGB Conc 33.4 g/dL (30-55); Mean Corpuscular Hemoglobin 32.9 pg (27-33); Mean Corpuscular Volume 98.5 fl (82-101); Mean Platelet Volume 8.3 fL (7.4-10.4); Monocytes # 0.8 10^3/uL (0.2-0.9); Monocytes % 9.5 %; Neutrophils # 4.36 10^3/uL (1.8-7.7); Neutrophils % 55.4 %; Nucleated Red Blood Cells % 0 %; Platelet Count 231 10^3/cmm (157-399); Red Blood Count 4.53 10^6/uL (3.85-5.65); Red Cell Distribution Width 12.6 % (12.1-15.1); White Blood Count 7.87 10^3/uL (3.29-11.43)
[2024-07-21] MEDS: dilTIAZem 5 mg/mL SDV 5 mL 10 MG IVP (16:33)
[2024-07-21] MEDS: sodium chloride 0.9% 1,000 ML 999 ML IV (16:35)
[2024-07-21 16:36] LABS: Alanine Aminotransferase 18 U/L (0-41); Albumin Level 4.4 g/dL (3.5-5.2); Alkaline Phosphatase 127 U/L (40-130); Anion Gap 13.4 (5-19); Aspartate Amino Transferase 23 U/L (0-40); Blood Urea Nitrogen 13 mg/dL (8-23); Calcium 9.3 mg/dL (8.5-10.5); Carbon Dioxide 28 mmol/L (22-29); Chloride 100 mmol/L (98-107); Creatinine Clr Calc Pharmacy 60.5072; Globulin 2.7 g/dL (1.3-4.6); Glucose 104 mg/dL (65-115); Osmolality Calculated 284 mOsm/kg (285-295); Potassium 4.4 mmol/L (3.5-5.1); Sodium 137 mmol/L (136-145); Total Bilirubin 0.2 mg/dL (0.15-1.2); Total Protein 7.1 g/dL (6.6-8.7)
[2024-07-21 16:41] VITALS: BP 88/50
[2024-07-21 17:00] VITALS: BP 97/68; PULSE 62; O2SAT 94
[2024-07-21 17:37] VITALS: BP 100/71; PULSE 73; O2SAT 98
== END 2024-07-21 17:38 | disposition home or self-care (01) ==
PROVIDERS: Emergency Provider Emergency Medicine; PCP Family Medicine
DX: I48.20 Chronic atrial fibrillation, unspecified (principal)
CPT/HCPCS: 71045; 80053; 85025; 93005; 96361; 96374; 99285; J3490; J7030

== ENCOUNTER 2024-09-08 23:16 | Emergency (ER) | payer MEDICARE, SELFPAY ==
--- NOTE | 2024-09-08 23:18 | XRR_ITS ---
PROCEDURE INFORMATION: Exam: XR Chest Exam date and time: 09/08/2024 11:30 PM Age: 84 years old Clinical indication: Pain; Chest pressure; Prior surgery; Surgery date: 6+ months; Surgery type: Had watchman placed in 10/2023; Additional info: Chest pain TECHNIQUE: Imaging protocol: Radiologic exam of the chest. Views: 1 view. COMPARISON: CR XR chest 1V portable [id number] 07/21/2024 4:11 PM FINDINGS: Lungs: Unremarkable. No consolidation. Pleural spaces: Unremarkable. No pleural effusion. No pneumothorax. Heart/Mediastinum: Unremarkable. No cardiomegaly. Bones/joints: Unremarkable. XR/XR chest 1V portable [id number] IMPRESSION: No acute findings.
[2024-09-08 23:23] VITALS: BP 127/77; PULSE 92; RESP 20; TEMP 36.6; O2SAT 96; BMI 21.9
[2024-09-08 23:30] VITALS: PULSE 92; RESP 15; O2SAT 98
[2024-09-08 23:40] LABS: Basophils # 0.1 10^3/uL (0.0-0.1); Basophils % 0.9 %; Eosinophils # 0.3 10^3/uL (0.0-0.8); Eosinophils % 3.1 %; Hematocrit 42.9 % (37-53); Lymphocytes # 3.3 10^3/uL (0.8-4.8); Lymphocytes % 30.8 %; Mean Corpuscular HGB Conc 33.6 g/dL (30-55); Mean Corpuscular Hemoglobin 32.6 pg (27-33); Mean Corpuscular Volume 97.1 fl (82-101); Mean Platelet Volume 8.8 fL (7.4-10.4); Monocytes # 1.1 10^3/uL (0.2-0.9); Monocytes % 10.4 %; Neutrophils # 5.76 10^3/uL (1.8-7.7); Neutrophils % 54.5 %; Nucleated Red Blood Cells % 0 %; Platelet Count 218 10^3/cmm (157-399); Red Blood Count 4.42 10^6/uL (3.85-5.65); Red Cell Distribution Width 12.4 % (12.1-15.1); White Blood Count 10.56 10^3/uL (3.29-11.43)
[2024-09-08 23:59] LABS: Troponin(5th) Baseline 10 ng/L (0-15)
[2024-09-09 00:07] LABS: Alanine Aminotransferase 18 U/L (0-41); Albumin Level 4.3 g/dL (3.5-5.2); Alkaline Phosphatase 136 U/L (40-130); Anion Gap 14.6 (5-19); Aspartate Amino Transferase 27 U/L (0-40); Blood Urea Nitrogen 19 mg/dL (8-23); Calcium 9.1 mg/dL (8.5-10.5); Carbon Dioxide 29 mmol/L (22-29); Chloride 97 mmol/L (98-107); Creatinine Clr Calc Pharmacy 58.2338; Globulin 2.4 g/dL (1.3-4.6); Glucose 119 mg/dL (65-115); Magnesium 2.3 mg/dL (1.7-2.3); Osmolality Calculated 285 mOsm/kg (285-295); Potassium 4.6 mmol/L (3.5-5.1); Sodium 136 mmol/L (136-145); Total Bilirubin 0.2 mg/dL (0.15-1.2); Total Protein 6.7 g/dL (6.6-8.7)
[2024-09-09 00:08] LABS: Thyroid Stimulating Hormone 2.39 uIU/mL (0.27-4.20)
--- NOTE | 2024-09-09 00:10 | W.ED.ARRPALP ---
HPI - Arrhythmia/Palpitations General: Chief Complaint: Arrhythmia/Palpitations Stated Complaint: afib issues Time Seen by Provider: 09/08/24 23:24 History of Present Illness: 84-year-old man with a history of atrial fibrillation who is no longer on anticoagulation and has a Watchman who presents emergency room with atrial fibrillation and some tachycardia at home. He had taken an extra 50 of his metoprolol and his rate seems to have improved on presentation here. He had no chest pain. No abdominal pain. No nausea or vomiting. No altered mental status. He said his rate got up to about 115 Related Data Home Medications Medication Instructions Recorded Confirmed ascorbate calcium (vitamin C) 500 500 mg PO QAM 12/12/20 04/05/24 mg tablet flaxseed oil 1,000 mg capsule 1,000 mg PO QAM 12/12/20 04/05/24 selenium 100 mcg tablet 100 mcg PO QAM 12/12/20 04/05/24 melatonin 5 mg tablet 5 mg PO BEDTIME 06/02/23 04/05/24 omega-3 fatty acids 1,000 mg 1,000 mg PO QAM 06/02/23 04/05/24 capsule calcium 333 mg-vit D3 133 1 tab PO BID 09/06/23 04/05/24 unit-magnesium 133 mg-zinc 5 mg tablet (Mike Mag Zinc Plus D3) phenytoin sodium extended 100 mg 100 mg PO BID 09/06/23 04/05/24 capsule (Dilantin Extended) vit C 250 mg-vit E 90 mg-zinc 40 1 tab PO BID 09/06/23 04/05/24 mg-copper 1 [id number] capsule (PreserVision AREDS-2) clopidogrel 75 mg tablet 75 mg PO DAILY 12/03/23 04/05/24 doxycycline hyclate 100 mg tablet 100 mg PO DAILY PRN eye infection 12/03/23 04/05/24 aspirin 81 mg tablet,delayed 81 mg PO DAILY 01/01/24 04/05/24 release vitamin B complex 1 tab PO DAILY 01/01/24 04/05/24 Previous Rx's Medication Instructions Recorded metoprolol tartrate 100 mg tablet 100 mg PO BID #60 tabs 10/24/23 diclofenac sodium 75 mg 75 mg PO Q12H PRN pain #20 tabs 01/01/24 tablet,delayed release cefdinir 300 mg capsule 300 mg PO BID #14 caps 03/26/24 diltiazem HCl 30 mg tablet 30 mg PO Q6H PRN fast heart rate 06/26/24 #60 tabs Allergies Allergy/AdvReac Type Severity Reaction Status Date / Time levetiracetam [From [facility]] Allergy ADR-Halluci Verified 07/21/24 16:09 venancio Review of Systems Narrative: Constitutional symptoms: Negative except as documented in HPI. Skin symptoms: Negative except as documented in HPI. Eye symptoms: Negative except as documented in HPI. ENMT symptoms: Negative except as documented in HPI. Respiratory symptoms: Negative except as documented in HPI. Cardiovascular symptoms: Negative except as documented in HPI. Gastrointestinal symptoms: Negative except as documented in HPI. Genitourinary symptoms: Negative except as documented in HPI. Musculoskeletal symptoms: Negative except as documented in HPI. Neurologic symptoms: Negative except as documented in HPI. Psychiatric symptoms: Negative except as documented in HPI. Endocrine symptoms: Negative except as documented in HPI. PFS ED PFSH: Medical History Atrial fibrillation with RVR Anxiety Atrial fibrillation with rapid ventricular response Atrial fibrillation, new onset Urethral stricture Lower urinary tract symptoms (LUTS) Surgical History Hx of tonsillectomy H/O arthroscopy of knee left History of carpal tunnel release left H/O rotator cuff surgery left Family History Father , at age 63 Cancer tongue Mother , at age 64 Lung disease Social History Smoking and tobacco/nicotine status: never used tobacco/nicotine Alcohol intake: current Alcohol intake frequency: 0-2 Drinks per Day Marital status: Current occupational status: retired Physical Exam Narrative: EXAM NARRATIVE: General: Alert, no acute distress. Skin: Warm, dry. Head: Normocephalic, atraumatic. Neck: Supple, trachea midline. Eye: Extraocular movements are intact. Ears, nose, mouth and throat: mucosa moist. Cardiovascular: Irregularly irregular, Normal peripheral perfusion. Respiratory: Lungs are clear to auscultation, respirations are non-labored, breath sounds are equal, Symmetrical chest wall expansion. Gastrointestinal: Soft, Nontender, Non distended Musculoskeletal: Normal ROM, no deformity. Neurological: Alert and oriented, No focal neurological deficit observed. Psychiatric: Cooperative, appropriate mood & affect. Course Vital Signs: Vital signs: Vital Signs Temperature 98 F 09/08/24 23:23 Pulse Rate 92 09/08/24 23:23 Respiratory Rate 20 H 09/08/24 23:23 Blood Pressure 127/77 09/08/24 23:23 Pulse Oximetry 96 09/08/24 23:23 MDM - Arrhythmia/Palpitations Medical Decision Making Medical decision making: Differential diagnosis including but not limited to and based on the above HPI, review of systems and physical exam: for patient with palpitations: atrial fibrillation with rapid ventricular response. ventricular tachycardia. sinus tachycardia. PVCs. also concern for underlying issues causing tachycardia. Infection, electrolyte abnormalities and thyroid issues Orders placed to evaluate differential diagnosis based on the above differential, HPI and physical exam EKG: Time 2325. Rate 96. Atrial fibrillation with controlled rate, No ST-T changes, no ectopy, This was reviewed and interpreted by myself the ER physician at 2330 Chest x-ray: No acute process. No infiltrate. No pneumothorax. This was reviewed and interpreted by myself the emergency room physician. I also reviewed the radiology report. Lab Review: Laboratory results were reviewed and interpreted by myself the emergency room physician. No leukocytosis. No anemia. No renal failure. No electrolyte abnormalities. I reviewed the patient's medical record. Reexamination: Patient's rate has remained controlled since has been here. No chest pain. No altered mental status. He took an extra 50 mg of his metoprolol at home and apparently has fixed the problem himself Assessment and plan: Atrial fibrillation with rapid ventricular response ?Improvement with home medications. - Discharged home - Discussed plan with patient. Answered any questions. - Evaluation and treatment of this problem were appropriate in the emergency setting. Lab Data 09/08/24 23:29 09/08/24 23: Laboratory Results WBC 10.56 10^3/uL (3.29-11.43) 09/08/24 23: RBC 4.42 10^6/uL (3.85-5.65) 09/08/24 23: Hgb 14.40 g/dL (11.27-16.99) 09/08/24 23: Hct 42.9 % (37-53) 09/08/24: MCV 97.1 fl (82-101) 09/08/24 23: MCH 32.6 pg (27-33) 09/08/24: MCHC 33.6 g/dL (30-55) 09/08/24: RDW 12.4 % (12.1-15.1) 09/08/24: Plt Count 218 10^3/cmm (157-399) 09/08/24 23: MPV 8.8 fL (7.4-10.4) 09/08/24: Neut % (Auto) 54.5 % 09/08/24: Lymph % (Auto) 30.8 % 09/08/24: Dickens % (Auto) 10.4 % 09/08/24: Eos % (Auto) 3.1 % 09/08/24: Baso % (Auto) 0.9 % 09/08/24: Neut # (Auto) 5.76 10^3/uL (1.8-7.7) 09/08/24: Lymph # (Auto) 3.3 10^3/uL (0.8-4.8) 09/08/24: Dickens # (Auto) 1.1 10^3/uL (0.2-0.9) H 09/08/24: Eos # (Auto) 0.3 10^3/uL (0.0-0.8) 09/08/24 Baso # (Auto) 0.1 10^3/uL (0.0-0.1) 09/08/24: Nucleated RBC % (auto) 0 % 09/08/24 Nucleated RBCs # 0.0 /100WBC 09/08/24: Sodium 136 mmol/L (136-145) 09/08/24: Potassium 4.6 mmol/L (3.5-5.1) 09/08/24: Chloride 97 mmol/L (98-107) L 09/08/24: Carbon Dioxide 29 mmol/L (22-29) 09/08/24 23:29 Anion Gap 14.6 (5-19) 09/08/24 23: BUN 19 mg/dL (8-23) 09/08/24 23: Creatinine 0.9 mg/dL (0.7-1.2) 09/08/24 23:29 GFR Calculation Not Reportable 09/08/24 23: Glucose 119 mg/dL (65-115) H 09/08/24 23: Calculated Osmolality 285 mOsm/kg (285-295) 09/08/24 23: Calcium 9.1 mg/dL (8.5-10.5) 09/08/24: Magnesium 2.3 mg/dL (1.7-2.3) 09/08/24: Total Bilirubin 0.2 mg/dL (0.15-1.2) 09/08/24 23: AST 27 U/L (0-40) 09/08/24: ALT 18 U/L (0-41) 09/08/24: Alkaline Phosphatase 136 U/L (40-130) H 09/08/24 23: Troponin T Baseline 10 ng/L (0-15) 09/08/24 23: Total Protein 6.7 g/dL (6.6-8.7) 09/08/24 23: Albumin 4.3 g/dL (3.5-5.2) 09/08/24 23: Globulin 2.4 g/dL (1.3-4.6) 09/08/24 23: TSH 2.39 uIU/mL (0.27-4.20) 09/08/24 23:29 All radiology interpretation(s) finalized by discharge Discharge Plan Discharge Patient Disposition: Home Clinical Impression: Atrial fibrillation with rapid ventricular response Condition: Stable Prescriptions: No Action ascorbate calcium (vitamin C) 500 mg tablet 500 mg PO QAM flaxseed oil 1,000 mg capsule 1,000 mg PO QAM Rx Instructions: administer with a meal selenium 100 mcg tablet 100 mcg PO QAM clopidogrel 75 mg tablet 75 mg PO DAILY doxycycline hyclate 100 mg tablet 100 mg PO DAILY PRN (Reason: eye infection) melatonin 5 mg Tablet 5 mg PO BEDTIME omega-3 fatty acids 1,000 mg Capsule 1,000 mg PO QAM phenytoin sodium extended [Dilantin Extended] 100 mg capsule 100 mg PO BID Mike Mag Zinc Plus D3 333 mg-133 unit -133 mg-5 mg Tablet 1 tab PO BID PreserVision AREDS-2 250-90-40-1 mg Capsule 1 tab PO BID metoprolol tartrate 100 mg tablet 100 mg PO BID Qty: 60 1RF diclofenac sodium 75 mg tablet,delayed release (DR/EC) 75 mg PO Q12H PRN (Reason: pain) Qty: 20 0RF Aspir-81 81 mg Tablet,Delayed Release (Dr/Ec) 81 mg PO DAILY vitamin B complex Tablet 1 tab PO DAILY cefdinir 300 mg capsule 300 mg PO BID Qty: 14 0RF diltiazem HCl 30 mg tablet 30 mg PO Q6H PRN (Reason: fast heart rate) Qty: 60 0RF Discharge Orders: Discharge ED (Routine); Ordered 09/09/24 Ordered By: Kaela Denny Referrals: Darell Jackson MD [Primary Care Provider] - Discharge Diet: Usual diet Discharge Activity: Increase activity as tolerated Patient Instructions: Opioid Safety, Pain Management Activity Restrictions/Additional Instructions: Thank you for choosing [facility] for your healthcare needs today. Please realize this is an emergency room and that we are providing you with a medical screening exam and this may not be complete and all inclusive of all the testing and or work up that you may need to determine your ailment or severity of your illness. You have been screened and evaluated and felt safe for discharge. Health conditions do change or evolve sometimes and as such it is important that you follow up with your Primary Doctor to be re checked, 3-5 days is a general good time frame for follow up. You are always welcome to return to the ED for re assessment if your symptoms are worsening or you have new concerns Coding Level of Care Code ED Critical Care Clinical Nurse Specialist for More Mallory
[2024-09-09 00:15] VITALS: PULSE 71; O2SAT 93
[2024-09-09 00:39] VITALS: BP 127/77; PULSE 76; O2SAT 94
[2024-09-09 00:43] VITALS: BP 127/77; PULSE 76; O2SAT 94
== END 2024-09-09 00:44 | disposition home or self-care (01) ==
PROVIDERS: Physician Assistant; Emergency Provider Emergency Medicine; PCP Family Medicine
DX: I48.20 Chronic atrial fibrillation, unspecified (principal)
CPT/HCPCS: 71045; 80053; 83735; 84443; 84484; 85025; 99285

== ENCOUNTER 2024-09-15 05:16 | Emergency (ER) | payer MEDICARE, SELFPAY ==
[2024-09-15] VITALS (8 sets, daily range): BP systolic 98–142; BP diastolic 54–89; PULSE 69–113; RESP 14–24; TEMP 37.1; O2SAT 91–98; BMI 23.6
--- NOTE | 2024-09-15 05:26 | ECG_ITS ---
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
--- NOTE | 2024-09-15 05:26 | ED_ITS ---
Documented by User: Candido Wyman DO 09/15/24 18:40 HPI - Arrhythmia/Palpitations 2 General: Chief Complaint: Arrhythmia/Palpitations Stated Complaint: AFib Time Seen by Provider: 09/15/24 05:26 History of Present Illness: Presents to the ER with complaints of A-fib with fast heart rate. Patient states his heart rate was 150 beats a minute prior to arrival. Patient is normally on metoprolol 100 mg twice daily he did take additional dose prior to arrival. He has done this several times in the past and is converted him before he arrived. However this time patient's heart rate still upwards over the 120s. Related Data Home Medications Medication Instructions Recorded Confirmed ascorbate calcium (vitamin C) 500 500 mg PO QAM 12/12/20 09/17/24 mg tablet flaxseed oil 1,000 mg capsule 1,000 mg PO QAM 12/12/20 09/17/24 selenium 100 mcg tablet 100 mcg PO QAM 12/12/20 09/17/24 melatonin 5 mg tablet 5 mg PO BEDTIME 06/02/23 09/17/24 omega-3 fatty acids 1,000 mg 1,000 mg PO QAM 06/02/23 09/17/24 capsule calcium 333 mg-vit D3 133 1 tab PO BID 09/06/23 09/17/24 unit-magnesium 133 mg-zinc 5 mg tablet (Mike Mag Zinc Plus D3) phenytoin sodium extended 100 mg 100 mg PO BID 09/06/23 09/17/24 capsule (Dilantin Extended) vit C 250 mg-vit E 90 mg-zinc 40 1 tab PO BID 09/06/23 09/17/24 mg-copper 1 [id number] capsule (PreserVision AREDS-2) aspirin 81 mg tablet,delayed 81 mg PO DAILY 01/01/24 09/17/24 release vitamin B complex 1 tab PO DAILY 01/01/24 09/17/24 amoxicillin 875 mg-potassium 1 tab PO BID 09/17/24 09/17/24 clavulanate 125 mg tablet Previous Rx's Medication Instructions Recorded metoprolol tartrate 100 mg tablet 100 mg PO BID #60 tabs 10/24/23 azelastine 137 mcg (0.1 %) nasal 2 spray intranasal BID 14 days #30 09/15/24 spray mL metoprolol tartrate 100 mg tablet 100 mg PO BID #60 tabs 09/17/24 Allergies Allergy/AdvReac Type Severity Reaction Status Date / Time levetiracetam [From [facility]] Allergy ADR-Halluci Verified 07/21/24 16:09 venancio Review of Systems 2 General: Reports: 10 or more systems reviewed and unremarkable except in HPI and below PFSH ED 2 PFSH: Medical History Atrial fibrillation with RVR Anxiety Atrial fibrillation with rapid ventricular response Atrial fibrillation, new onset Urethral stricture Lower urinary tract symptoms (LUTS) Surgical History Hx of tonsillectomy H/O arthroscopy of knee left History of carpal tunnel release left H/O rotator cuff surgery left Family History Father , at age 63 Cancer tongue Mother , at age 64 Lung disease Social History Smoking and tobacco/nicotine status: never used tobacco/nicotine Alcohol intake: current Alcohol intake frequency: 0-2 Drinks per Day Marital status: Current occupational status: retired Physical Exam 2 Const: COMMON NORMALS: no acute distress, average body habitus, patient oriented x3, no limitations, healthy appearing, alert and well nourished HENMT: COMMON NORMALS: normocephalic, atraumatic, hearing grossly normal bilaterally, external ears normal, Normal external nose present and moist oral mucous membranes HEAD & SCALP: normocephalic and atraumatic NOSE: Normal external nose present EXTERNAL EAR: Yes external ears normal Neck/C-Spine: COMMON NORMALS: no JVD Chest: COMMONS NORMALS: normal inspection of the chest and normal palpation of entire chest wall Resp: COMMON NORMALS: normal respiratory effort, No retractions, No use of accessory muscles and clear to auscultation bilaterally AUSCULTATION: clear to auscultation bilaterally Cardio: COMMON NORMALS: no JVD, S1 normal heart sound present, S2 normal heart sound present, No gallops present (Cardio), No clicks present (Cardio), No murmurs present (Cardio) and No rub (Cardio); negative for regular rate (Irregularly irregular tachycardic rhythm) and negative for regular rhythm RATE: abnormal rate (Irregularly irregular tachycardic rhythm) RHYTHM: abnormal rhythm HEART SOUNDS: S1 normal heart sound present and S2 normal heart sound present GI: COMMON NORMALS: Normal to inspection, nondistended, normoactive bowel sounds present, Soft to palpation, non-tender, No hepatosplenomegaly present and no masses PALPATION: Yes Soft to palpation and Yes No hepatosplenomegaly present Neuro: COMMON NORMALS: patient oriented x3 SENSORIUM/ORIENTATION: Yes alert Course 2 Vital Signs: Vital signs: Vital Signs Temperature 98.7 F 09/15/24 05:23 Pulse Rate 81 09/15/24 08:59 Respiratory Rate 18 09/15/24 07:26 Blood Pressure 122/72 09/15/24 08:59 Pulse Oximetry 98 09/15/24 08:59 Oxygen Delivery Me thod Room Air 09/15/24 07:26 MDM - Arrhythmia/Palpitations Medical Decision Making Care transferred over shift change, Medical Records I reviewed the patient's medical records. Lab Data I reviewed the patient's lab results. 09/15/24 05:32 09/15/24 05:32 Radiology Impressions Chest X-Ray 09/15/24 06:29 IMPRESSION: No acute findings. Laboratory Results WBC 11.78 10^3/uL (3.29-11.43) H 09/15/24 05:32 RBC 4.47 10^6/uL (3.85-5.65) 09/15/24 05:32 Hgb 14.50 g/dL (11.27-16.99) 09/15/24 05:32 Hct 42.3 % (37-53) 09/15/24 05:32 MCV 94.6 fl (82-101) 09/15/24 05:32 MCH 32.4 pg (27-33) 09/15/24 05:32 MCHC 34.3 g/dL (30-55) 09/15/24 05:32 RDW 12.4 % (12.1-15.1) 09/15/24 05:32 Plt Count 223 10^3/cmm (157-399) 09/15/24 05:32 MPV 8.2 fL (7.4-10.4) 09/15/24 05:32 Neut % (Auto) 66.0 % 09/15/24 05:32 Lymph % (Auto) 18.9 % 09/15/24 05:32 Freestone % (Auto) 13.2 % 09/15/24 05:32 Eos % (Auto) 0.8 % 09/15/24 05:32 Baso % (Auto) 0.7 % 09/15/24 05:32 Neut # (Auto) 7.78 10^3/uL (1.8-7.7) H 09/15/24 05:32 Lymph # (Auto) 2.2 10^3/uL (0.8-4.8) 09/15/24 05:32 [place] # (Auto) 1.6 10^3/uL (0.2-0.9) H 09/15/24 05:32 Eos # (Auto) 0.1 10^3/uL (0.0-0.8) 09/15/24 05:32 Baso # (Auto) 0.1 10^3/uL (0.0-0.1) 09/15/24 05:32 Nucleated RBC % (auto) 0 % 09/15/24 05:32 Nucleated RBCs # 0.0 /100WBC 09/15/24 05:32 Sodium 130 mmol/L (136-145) L 09/15/24 05:32 Potassium 4.1 mmol/L (3.5-5.1) 09/15/24 05:32 Chloride 95 mmol/L (98-107) L 09/15/24 05:32 Carbon Dioxide 21 mmol/L (22-29) L 09/15/24 05:32 Anion Gap 18.1 (5-19) 09/15/24 05:32 BUN 14 mg/dL (8-23) 09/15/24 05:32 Creatinine 0.7 mg/dL (0.7-1.2) 09/15/24 05:32 GFR Calculation Not Reportable 09/15/24 05:32 Glucose 110 mg/dL (65-115) 09/15/24 05:32 Calculated Osmolality 271 mOsm/kg (285-295) L 09/15/24 05:32 Calcium 9.0 mg/dL (8.5-10.5) 09/15/24 05:32 Magnesium 2.1 mg/dL (1.7-2.3) 09/15/24 05:32 Total Bilirubin 0.3 mg/dL (0.15-1.2) 09/15/24 05:32 AST 23 U/L (0-40) 09/15/24 05:32 ALT 18 U/L (0-41) 09/15/24 05:32 Alkaline Phosphatase 149 U/L (40-130) H 09/15/24 05:32 Troponin T Baseline 13 ng/L (0-15) 09/15/24 05:32 Troponin T 120 Minute 12.82 ng/L (0-15) 09/15/24 07:27 Delta Troponin T -0.18 ABS# (0-10) L 09/15/24 07:27 Total Protein 6.9 g/dL (6.6-8.7) 09/15/24 05:32 Albumin 3.9 g/dL (3.5-5.2) 09/15/24 05:32 Globulin 3.0 g/dL (1.3-4.6) 09/15/24 05:32 All radiology interpretation(s) finalized by discharge Discharge Plan Discharge Patient Disposition: Home Clinical Impression: Sinusitis Atrial fibrillation Qualifiers: Atrial fibrillation type: unspecified Qualified Code(s): I48.91 - Unspecified atrial fibrillation Condition: Stable Prescriptions: New azelastine 137 mcg (0.1 %) spray,non-aerosol 2 spray intranasal BID 14 Days Qty: 30 0RF Rx Instructions: administer into each nostril No Action ascorbate calcium (vitamin C) 500 mg tablet 500 mg PO QAM flaxseed oil 1,000 mg capsule 1,000 mg PO QAM Rx Instructions: administer with a meal selenium 100 mcg tablet 100 mcg PO QAM melatonin 5 mg Tablet 5 mg PO BEDTIME omega-3 fatty acids 1,000 mg Capsule 1,000 mg PO QAM phenytoin sodium extended [Dilantin Extended] 100 mg capsule 100 mg PO BID calcium carb-D3-mag ox-zinc ox [Imke Mag Zinc Plus D3] 333 mg-133 unit -133 mg- 5 mg Tablet 1 tab PO BID PreserVision AREDS-2 250-90-40-1 mg Capsule 1 tab PO BID metoprolol tartrate 100 mg tablet 100 mg PO BID Qty: 60 1RF aspirin [Aspir-81] 81 mg Tablet,Delayed Release (Dr/Ec) 81 mg PO DAILY vitamin B complex Tablet 1 tab PO DAILY amoxicillin-pot clavulanate 875-125 mg tablet 1 tab PO BID metoprolol tartrate 100 mg tablet 100 mg PO BID Qty: 60 0RF Discharge Orders: Discharge ED (Routine); Ordered 09/15/24 Ordered By: Brett Engel Referrals: Darell Jackson MD [Primary Care Provider] - Discharge Diet: Usual diet Discharge Activity: Increase activity as tolerated Activity Restrictions/Additional Instructions: Thank you for choosing [facility] for your healthcare needs today. It is very important that you follow up as instructed or that you return to the Emergency Department should you have concerns or if your condition changes or worsens in any way. You were seen in the emergency room with a rapid heart rate and sinus congestion. Your atrial fibrillation rate is now controlled. Continue your current medications. Continue the Augmentin antibiotic you were given yesterday. In addition to this you were given a prescription for Astelin nasal spray this helps with sinus congestion without exacerbating your heart rate. Follow-up with your primary care doctor if you have further problems. Coding Level of Care Code ED Environmental Scientist for [employer] Documented by User: Brett Engel DO 09/19/24 06:15 HPI - Arrhythmia/Palpitations 2 General: Chief Complaint: Arrhythmia/Palpitations Stated Complaint: AFib Time Seen by Provider: 09/15/24 05:26 Related Data Home Medications Medication Instructions Recorded Confirmed ascorbate calcium (vitamin C) 500 500 mg PO QAM 12/12/20 09/17/24 mg tablet flaxseed oil 1,000 mg capsule 1,000 mg PO QAM 12/12/20 09/17/24 selenium 100 mcg tablet 100 mcg PO QAM 12/12/20 09/17/24 melatonin 5 mg tablet 5 mg PO BEDTIME 06/02/23 09/17/24 omega-3 fatty acids 1,000 mg 1,000 mg PO QAM 06/02/23 09/17/24 capsule calcium 333 mg-vit D3 133 1 tab PO BID 09/06/23 09/17/24 unit-magnesium 133 mg-zinc 5 mg tablet (Mike Mag Zinc Plus D3) phenytoin sodium extended 100 mg 100 mg PO BID 09/06/23 09/17/24 capsule (Dilantin Extended) vit C 250 mg-vit E 90 mg-zinc 40 1 tab PO BID 09/06/23 09/17/24 mg-copper 1 [id number] capsule (PreserVision AREDS-2) aspirin 81 mg tablet,delayed 81 mg PO DAILY 01/01/24 09/17/24 release vitamin B complex 1 tab PO DAILY 01/01/24 09/17/24 amoxicillin 875 mg-potassium 1 tab PO BID 09/17/24 09/17/24 clavulanate 125 mg tablet Previous Rx's Medication Instructions Recorded metoprolol tartrate 100 mg tablet 100 mg PO BID #60 tabs 10/24/23 azelastine 137 mcg (0.1 %) nasal 2 spray intranasal BID 14 days #30 09/15/24 spray mL metoprolol tartrate 100 mg tablet 100 mg PO BID #60 tabs 09/17/24 Allergies Allergy/AdvReac Type Severity Reaction Status Date / Time levetiracetam [From [facility]] Allergy ADR-Halluci Verified 07/21/24 16:09 [facility] ED 2 [facility]: Medical History Atrial fibrillation with RVR Anxiety Atrial fibrillation with rapid ventricular response Atrial fibrillation, new onset Urethral stricture Lower urinary tract symptoms (LUTS) Surgical History Hx of tonsillectomy H/O arthroscopy of knee left History of carpal tunnel release left H/O rotator cuff surgery left Family History Father , at age 63 Cancer tongue Mother , at age 64 Lung disease Social History Smoking and tobacco/nicotine status: never used tobacco/nicotine Alcohol intake: current Alcohol intake frequency: 0-2 Drinks per Day Marital status: Current occupational status: retired Course 2 Vital Signs: Vital signs: Vital Signs Temperature 98.7 F 09/15/24 05:23 Pulse Rate 81 09/15/24 08:59 Respiratory Rate 18 09/15/24 07:26 Blood Pressure 122/72 09/15/24 08:59 Pulse Oximetry 98 09/15/24 08:59 Oxygen Delivery Me thod Room Air 09/15/24 07:26 MDM - Arrhythmia/Palpitations Medical Decision Making Care transferred over shift change, Care assumed at change of shift patient monitored his heart rate has been controlled. He does have a lot of sinus congestion. Is currently on Augmentin for sinusitis. Recommend he continue the Augmentin and add Astelin nasal spray to help with congestion. Follow-up with his primary care doctor. Also encouraged him to contact his plumber's helper. May need to reevaluate his rate control since he is having these episodes of breakthrough. Lab Data 09/15/24 05:32 09/15/24 05:32 Radiology Impressions Chest X-Ray 09/15/24 06:29 IMPRESSION: No acute findings. Laboratory Results WBC 11.78 10^3/uL (3.29-11.43) H 09/15/24 05:32 RBC 4.47 10^6/uL (3.85-5.65) 09/15/24 05:32 Hgb 14.50 g/dL (11.27-16.99) 09/15/24 05:32 Hct 42.3 % (37-53) 09/15/24 05:32 MCV 94.6 fl (82-101) 09/15/24 05:32 MCH 32.4 pg (27-33) 09/15/24 05:32 MCHC 34.3 g/dL (30-55) 09/15/24 05:32 RDW 12.4 % (12.1-15.1) 09/15/24 05:32 Plt Count 223 10^3/cmm (157-399) 09/15/24 05:32 MPV 8.2 fL (7.4-10.4) 09/15/24 05:32 Neut % (Auto) 66.0 % 09/15/24 05:32 Lymph % (Auto) 18.9 % 09/15/24 05:32 Freestone % (Auto) 13.2 % 09/15/24 05:32 Eos % (Auto) 0.8 % 09/15/24 05:32 Baso % (Auto) 0.7 % 09/15/24 05:32 Neut # (Auto) 7.78 10^3/uL (1.8-7.7) H 09/15/24 05:32 Lymph # (Auto) 2.2 10^3/uL (0.8-4.8) 09/15/24 05:32 [place] # (Auto) 1.6 10^3/uL (0.2-0.9) H 09/15/24 05:32 Eos # (Auto) 0.1 10^3/uL (0.0-0.8) 09/15/24 05:32 Baso # (Auto) 0.1 10^3/uL (0.0-0.1) 09/15/24 05:32 Nucleated RBC % (auto) 0 % 09/15/24 05:32 Nucleated RBCs # 0.0 /100WBC 09/15/24 05:32 Sodium 130 mmol/L (136-145) L 09/15/24 05:32 Potassium 4.1 mmol/L (3.5-5.1) 09/15/24 05:32 Chloride 95 mmol/L (98-107) L 09/15/24 05:32 Carbon Dioxide 21 mmol/L (22-29) L 09/15/24 05:32 Anion Gap 18.1 (5-19) 09/15/24 05:32 BUN 14 mg/dL (8-23) 09/15/24 05:32 Creatinine 0.7 mg/dL (0.7-1.2) 09/15/24 05:32 GFR Calculation Not Reportable 09/15/24 05:32 Glucose 110 mg/dL (65-115) 09/15/24 05:32 Calculated Osmolality 271 mOsm/kg (285-295) L 09/15/24 05:32 Calcium 9.0 mg/dL (8.5-10.5) 09/15/24 05:32 Magnesium 2.1 mg/dL (1.7-2.3) 09/15/24 05:32 Total Bilirubin 0.3 mg/dL (0.15-1.2) 09/15/24 05:32 AST 23 U/L (0-40) 09/15/24 05:32 ALT 18 U/L (0-41) 09/15/24 05:32 Alkaline Phosphatase 149 U/L (40-130) H 09/15/24 05:32 Troponin T Baseline 13 ng/L (0-15) 09/15/24 05:32 Troponin T 120 Minute 12.82 ng/L (0-15) 09/15/24 07:27 Delta Troponin T -0.18 ABS# (0-10) L 09/15/24 07:27 Total Protein 6.9 g/dL (6.6-8.7) 09/15/24 05:32 Albumin 3.9 g/dL (3.5-5.2) 09/15/24 05:32 Globulin 3.0 g/dL (1.3-4.6) 09/15/24 05:32 Discharge Plan Discharge Patient Disposition: Home Clinical Impression: Sinusitis Atrial fibrillation Qualifiers: Atrial fibrillation type: unspecified Qualified Code(s): I48.91 - Unspecified atrial fibrillation Condition: Stable Prescriptions: New azelastine 137 mcg (0.1 %) spray,non-aerosol 2 spray intranasal BID 14 Days Qty: 30 0RF Rx Instructions: administer into each nostril No Action ascorbate calcium (vitamin C) 500 mg tablet 500 mg PO QAM flaxseed oil 1,000 mg capsule 1,000 mg PO QAM Rx Instructions: administer with a meal selenium 100 mcg tablet 100 mcg PO QAM melatonin 5 mg Tablet 5 mg PO BEDTIME omega-3 fatty acids 1,000 mg Capsule 1,000 mg PO QAM phenytoin sodium extended [Dilantin Extended] 100 mg capsule 100 mg PO BID calcium carb-D3-mag ox-zinc ox [Mike Mag Zinc Plus D3] 333 mg-133 unit -133 mg- 5 mg Tablet 1 tab PO BID PreserVision AREDS-2 250-90-40-1 mg Capsule 1 tab PO BID metoprolol tartrate 100 mg tablet 100 mg PO BID Qty: 60 1RF aspirin [Aspir-81] 81 mg Tablet,Delayed Release (Dr/Ec) 81 mg PO DAILY vitamin B complex Tablet 1 tab PO DAILY amoxicillin-pot clavulanate 875-125 mg tablet 1 tab PO BID metoprolol tartrate 100 mg tablet 100 mg PO BID Qty: 60 0RF Discharge Orders: Discharge ED (Routine); Ordered 09/15/24 Ordered By: Brett Engel Referrals: Darell Jackson MD [Primary Care Provider] - Discharge Diet: Usual diet Discharge Activity: Increase activity as tolerated Activity Restrictions/Additional Instructions: Thank you for choosing [facility] for your healthcare needs today. It is very important that you follow up as instructed or that you return to the Emergency Department should you have concerns or if your condition changes or worsens in any way. You were seen in the emergency room with a rapid heart rate and sinus congestion. Your atrial fibrillation rate is now controlled. Continue your current medications. Continue the Augmentin antibiotic you were given yesterday. In addition to this you were given a prescription for Astelin nasal spray this helps with sinus congestion without exacerbating your heart rate. Follow-up with your primary care doctor if you have further problems. Coding Level of Care Code ED Environmental Scientist for [employer]
[2024-09-15 05:36] LABS: Basophils # 0.1 10^3/uL (0.0-0.1); Basophils % 0.7 %; Eosinophils # 0.1 10^3/uL (0.0-0.8); Eosinophils % 0.8 %; Hematocrit 42.3 % (37-53); Lymphocytes # 2.2 10^3/uL (0.8-4.8); Lymphocytes % 18.9 %; Mean Corpuscular HGB Conc 34.3 g/dL (30-55); Mean Corpuscular Hemoglobin 32.4 pg (27-33); Mean Corpuscular Volume 94.6 fl (82-101); Mean Platelet Volume 8.2 fL (7.4-10.4); Monocytes # 1.6 10^3/uL (0.2-0.9); Monocytes % 13.2 %; Neutrophils # 7.78 10^3/uL (1.8-7.7); Nucleated Red Blood Cells % 0 %; Platelet Count 223 10^3/cmm (157-399); Red Blood Count 4.47 10^6/uL (3.85-5.65); Red Cell Distribution Width 12.4 % (12.1-15.1); White Blood Count 11.78 10^3/uL (3.29-11.43)
[2024-09-15] MEDS: dilTIAZem 5 mg/mL SDV 5 mL 10 MG IVP (05:38)
[2024-09-15 05:56] LABS: Troponin(5th) Baseline 13 ng/L (0-15)
[2024-09-15 05:58] LABS: Alanine Aminotransferase 18 U/L (0-41); Albumin Level 3.9 g/dL (3.5-5.2); Alkaline Phosphatase 149 U/L (40-130); Anion Gap 18.1 (5-19); Aspartate Amino Transferase 23 U/L (0-40); Blood Urea Nitrogen 14 mg/dL (8-23); Carbon Dioxide 21 mmol/L (22-29); Chloride 95 mmol/L (98-107); Creatinine Clr Calc Pharmacy 69.6431; Glucose 110 mg/dL (65-115); Magnesium 2.1 mg/dL (1.7-2.3); Osmolality Calculated 271 mOsm/kg (285-295); Potassium 4.1 mmol/L (3.5-5.1); Sodium 130 mmol/L (136-145); Total Bilirubin 0.3 mg/dL (0.15-1.2); Total Protein 6.9 g/dL (6.6-8.7)
--- NOTE | 2024-09-15 06:29 | XRR_ITS ---
PROCEDURE INFORMATION: Exam: XR Chest Exam date and time: 09/15/2024 6:39 AM Age: 84 years old Clinical indication: Prior surgery; Surgery date: 6+ months; Surgery type: Watchmans device; Patient HX: Palpations, afib, cough; Additional info: Tachycardia TECHNIQUE: Imaging protocol: Radiologic exam of the chest. Views: 1 view. COMPARISON: CR (CHEST, ) 09/08/2024 11:30 PM FINDINGS: Lungs: Unremarkable. No consolidation. Pleural spaces: Unremarkable. No pleural effusion. No pneumothorax. Heart/Mediastinum: Unremarkable. No cardiomegaly. Bones/joints: Unremarkable. XR/XR chest 1V portable [id number] IMPRESSION: No acute findings.
--- NOTE | 2024-09-15 07:26 | PC.NURSE ---
THIS NURSE ASSUMED CARE AT 0650.
[2024-09-15 07:49] LABS: Troponin 5 2HR 12.82 ng/L (0-15)
[2024-09-15 07:54] LABS: Troponin 5 2HR Delta -0.18 ABS# (0-10)
--- NOTE | 2024-09-15 08:14 | ECG_ITS ---
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
== END 2024-09-15 09:01 | disposition home or self-care (01) ==
PROVIDERS: Emergency Medicine; Emergency Provider Family Medicine; PCP Family Medicine
DX: J32.9 Chronic sinusitis, unspecified (principal); I48.91 Unspecified atrial fibrillation; Z79.82 Long term (current) use of aspirin
CPT/HCPCS: 36415; 71045; 80053; 83735; 84484; 85025; 93005; 96374; 99285; J3490

== ENCOUNTER 2024-09-17 08:52 | Emergency (ER) | payer MEDICARE, SELFPAY ==
--- NOTE | 2024-09-17 08:55 | ECG_ITS ---
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
[2024-09-17 09:01] VITALS: PULSE 150; RESP 16; TEMP 36.5; O2SAT 98
[2024-09-17 09:03] VITALS: BP 128/80
--- NOTE | 2024-09-17 09:09 | ECG_ITS ---
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
--- NOTE | 2024-09-17 09:09 | XRR_ITS ---
PROCEDURE INFORMATION: Exam: XR Chest Exam date and time: 09/17/2024 9:24 AM Age: 84 years old Clinical indication: Cough and dyspnea; Additional info: Dyspnea/cough TECHNIQUE: Imaging protocol: Radiologic exam of the chest. Views: 1 view. COMPARISON: CR XR chest 1V portable [id number] 09/15/2024 6:39 AM FINDINGS: Lungs: No large focal consolidation. Pleural spaces: No large pleural effusion. No distinct pneumothorax. Heart/Mediastinum: Cardiomediastinal silhouette is midline and normal in size. Bones/joints: Osseous structures are unchanged. XR/XR chest 1V portable [id number] IMPRESSION: No acute cardiopulmonary findings.
--- NOTE | 2024-09-17 09:12 | W.ED.ARRPALP ---
HPI - Arrhythmia/Palpitations General: Chief Complaint: Arrhythmia/Palpitations Stated Complaint: chest pain Time Seen by Provider: 09/17/24 09:07 History of Present Illness: 84-year-old male presents to the emergency room with complaint of chest discomfort and rapid heart rate. Patient has a known history of A-fib with RVR. He is reporting heart rates into the 150s at home. He has taken all of his medications no recent medicine changes or missed dosages. Interestingly when he first arrived his heart rate was in the 150s for the time he was triaged and placed in the exam room and had spontaneously dropped to the upper 60s. He is resting comfortably now. We did see him recently here in the emergency room with similar complaints he also had an upper respiratory infection with sinusitis we started him on antibiotics he says that he is still very congested but it has been improving Related Data Home Medications Medication Instructions Recorded Confirmed ascorbate calcium (vitamin C) 500 500 mg PO QAM 12/12/20 09/17/24 mg tablet flaxseed oil 1,000 mg capsule 1,000 mg PO QAM 12/12/20 09/17/24 selenium 100 mcg tablet 100 mcg PO QAM 12/12/20 09/17/24 melatonin 5 mg tablet 5 mg PO BEDTIME 06/02/23 09/17/24 omega-3 fatty acids 1,000 mg 1,000 mg PO QAM 06/02/23 09/17/24 capsule calcium 333 mg-vit D3 133 1 tab PO BID 09/06/23 09/17/24 unit-magnesium 133 mg-zinc 5 mg tablet (Mike Mag Zinc Plus D3) phenytoin sodium extended 100 mg 100 mg PO BID 09/06/23 09/17/24 capsule (Dilantin Extended) vit C 250 mg-vit E 90 mg-zinc 40 1 tab PO BID 09/06/23 09/17/24 mg-copper 1 [id number]-aeoake-tfuokd capsule (PreserVision AREDS-2) aspirin 81 mg tablet,delayed 81 mg PO DAILY 01/01/24 09/17/24 release vitamin B complex 1 tab PO DAILY 01/01/24 09/17/24 amoxicillin 875 mg-potassium 1 tab PO BID 09/17/24 09/17/24 clavulanate 125 mg tablet Previous Rx's Medication Instructions Recorded metoprolol tartrate 100 mg tablet 100 mg PO BID #60 tabs 02/24/24 azelastine 137 mcg (0.1 %) nasal 2 spray intranasal BID 14 days #30 09/15/24 spray mL metoprolol tartrate 100 mg tablet 100 mg PO BID #60 tabs 09/17/24 Allergies Allergy/AdvReac Type Severity Reaction Status Date / Time levetiracetam [From [facility]] Allergy ADR-Halluci Verified 07/21/24 16:09 nating Review of Systems Const: Denies: fever(s) or chills Card: Reports: chest pain, palpitations and irregular heart rhythm Resp: Denies: dyspnea GI: Denies: abdominal pain : Denies: dysuria, urinary frequency or urinary urgency Musc: Denies: neck pain or back pain Skin/Breast: Denies: rash PFSH ED PFSH: Medical History Atrial fibrillation with RVR Anxiety Atrial fibrillation with rapid ventricular response Atrial fibrillation, new onset Urethral stricture Lower urinary tract symptoms (LUTS) Surgical History Hx of tonsillectomy H/O arthroscopy of knee left History of carpal tunnel release left H/O rotator cuff surgery left Family History Father , at age 63 Cancer tongue Mother , at age 64 Lung disease Social History Smoking and tobacco/nicotine status: never used tobacco/nicotine Alcohol intake: current Alcohol intake frequency: 0-2 Drinks per Day Marital status: Current occupational status: retired Physical Exam Const: GENERAL APPEARANCE: cooperative ORIENTATION/CONSCIOUSNESS: Yes awake, Yes oriented to person, Yes oriented to place and Yes oriented to time HENMT: COMMON NORMALS: normocephalic, atraumatic and hearing grossly normal bilaterally HEAD & SCALP: normocephalic and atraumatic Resp: COMMON NORMALS: normal respiratory effort, No retractions, No use of accessory muscles and clear to auscultation bilaterally AUSCULTATION: clear to auscultation bilaterally Cardio: COMMON NORMALS: No murmurs present (Cardio) RATE: bradycardic RHYTHM: abnormal rhythm irregularly irregular GI: COMMON NORMALS: Soft to palpation and No hepatosplenomegaly present AUSCULTATION: Yes normoactive bowel sounds PALPATION: Yes Soft to palpation, No Tenderness to palpation present (GI), No Guarding due to palpation present (GI) and Yes No hepatosplenomegaly present Extremity: COMMON NORMALS: normal to inspection, capillary refill normal, no clubbing, cyanosis or edema, no calf tenderness and no pedal edema Neuro: SENSORIUM/ORIENTATION: Yes oriented to person, Yes oriented to place and Yes oriented to time Skin: COMMON NORMALS: no rashes or lesions noted GENERAL SKIN EXAM: no rashes or lesions noted Course Vital Signs: Vital signs: Vital Signs Temperature 97.7 F 09/17/24 09:01 Pulse Rate 65 09/17/24 11:41 Respiratory Rate 17 09/17/24 11:41 Blood Pressure 99/65 09/17/24 11:41 Pulse Oximetry 96 09/17/24 11:41 Oxygen Delivery Me thod Room Air 09/17/24 10:04 MDM - Arrhythmia/Palpitations Medical Decision Making Patient presented in A-fib with RVR he had taken his metoprolol at home but the time he got to the exam room and metoprolol kicked in and his rate was in the upper 60s remainder of the entire time he. He still is little sinus congestion we treated him for sinusitis earlier he is finishing those antibiotics. He said no further symptoms. Will discharge him home on his same medication does seem to be working well have him follow-up with his primary care doctor he had a 72-hour Holter monitor he thinks within the last months we did not order another. 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 He tells me they are trying to make appointment to and evaluate for an ablation. Medical Records I reviewed the patient's medical records. Lab Data I reviewed the patient's lab results. 09/17/24 09:16 09/17/24 09:16 Radiology Impressions Chest X-Ray 09/17/24 09:09 IMPRESSION: No acute cardiopulmonary findings. Laboratory Results WBC 9.91 10^3/uL (3.29-11.43) 09/17/24 09:16 RBC 4.76 10^6/uL (3.85-5.65) 09/17/24 09:16 Hgb 15.40 g/dL (11.27-16.99) 09/17/24 09:16 Hct 46.3 % (37-53) 09/17/24 09:16 MCV 97.3 fl (82-101) 09/17/24 09:16 MCH 32.4 pg (27-33) 09/17/24 09:16 MCHC 33.3 g/dL (30-55) 09/17/24 09:16 RDW 12.3 % (12.1-15.1) 09/17/24 09:16 Plt Count 246 10^3/cmm (157-399) 09/17/24 09:16 MPV 8.3 fL (7.4-10.4) 09/17/24 09:16 Neut % (Auto) 59.0 % 09/17/24 09:16 Lymph % (Auto) 29.1 % 09/17/24 09:16 Wharton % (Auto) 9.4 % 09/17/24 09:16 Eos % (Auto) 1.8 % 09/17/24 09:16 Baso % (Auto) 0.4 % 09/17/24 09:16 Neut # (Auto) 5.85 10^3/uL (1.8-7.7) 09/17/24 09:16 Lymph # (Auto) 2.9 10^3/uL (0.8-4.8) 09/17/24 09:16 Wharton # (Auto) 0.9 10^3/uL (0.2-0.9) 09/17/24 09:16 Eos # (Auto) 0.2 10^3/uL (0.0-0.8) 09/17/24 09:16 Baso # (Auto) 0.0 10^3/uL (0.0-0.1) 09/17/24 09:16 Nucleated RBC % (auto) 0 % 09/17/24 09:16 Nucleated RBCs # 0.0 /100WBC 09/17/24 09:16 Sodium 134 mmol/L (136-145) L 09/17/24 09:16 Potassium 4.5 mmol/L (3.5-5.1) 09/17/24 09:16 Chloride 98 mmol/L (98-107) 09/17/24 09:16 Carbon Dioxide 26 mmol/L (22-29) 09/17/24 09:16 Anion Gap 14.5 (5-19) 09/17/24 09:16 BUN 15 mg/dL (8-23) 09/17/24 09:16 Creatinine 0.8 mg/dL (0.7-1.2) 09/17/24 09:16 GFR Calculation Not Reportable 09/17/24 09:16 Glucose 110 mg/dL (65-115) 09/17/24 09:16 Calculated Osmolality 279 mOsm/kg (285-295) L 09/17/24 09:16 Calcium 9.1 mg/dL (8.5-10.5) 09/17/24 09:16 Total Bilirubin 0.3 mg/dL (0.15-1.2) 09/17/24 09:16 AST 24 U/L (0-40) 09/17/24 09:16 ALT 18 U/L (0-41) 09/17/24 09:16 Alkaline Phosphatase 155 U/L (40-130) H 09/17/24 09:16 Total Protein 7.0 g/dL (6.6-8.7) 09/17/24 09:16 Albumin 4.0 g/dL (3.5-5.2) 09/17/24 09:16 Globulin 3.0 g/dL (1.3-4.6) 09/17/24 09:16 All radiology interpretation(s) finalized by discharge Discharge Plan Discharge Patient Disposition: Home Clinical Impression: Sinusitis Atrial fibrillation Qualifiers: Atrial fibrillation type: unspecified Qualified Code(s): I48.91 - Unspecified atrial fibrillation Condition: Stable Prescriptions: New metoprolol tartrate 100 mg tablet 100 mg PO BID Qty: 60 0RF No Action ascorbate calcium (vitamin C) 500 mg tablet 500 mg PO QAM flaxseed oil 1,000 mg capsule 1,000 mg PO QAM Rx Instructions: administer with a meal selenium 100 mcg tablet 100 mcg PO QAM melatonin 5 mg Tablet 5 mg PO BEDTIME omega-3 fatty acids 1,000 mg Capsule 1,000 mg PO QAM phenytoin sodium extended [Dilantin Extended] 100 mg capsule 100 mg PO BID calcium carb-D3-mag ox-zinc ox [Mike Mag Zinc Plus D3] 333 mg-133 unit -133 mg-5 mg Tablet 1 tab PO BID PreserVision AREDS-2 250-90-40-1 mg Capsule 1 tab PO BID metoprolol tartrate 100 mg tablet 100 mg PO BID Qty: 60 1RF aspirin [Aspir-81] 81 mg Tablet,Delayed Release (Dr/Ec) 81 mg PO DAILY vitamin B complex Tablet 1 tab PO DAILY azelastine 137 mcg (0.1 %) spray,non-aerosol 2 spray intranasal BID 14 Days Qty: 30 0RF Rx Instructions: administer into each nostril amoxicillin-pot clavulanate 875-125 mg tablet 1 tab PO BID Discharge Orders: Discharge ED (Routine); Ordered 09/17/24 Ordered By: Brett Engel Referrals: Darell Jackson MD [Primary Care Provider] - Discharge Diet: Usual diet Discharge Activity: Resume usual activity Patient Instructions: Opioid Safety, Pain Management Activity Restrictions/Additional Instructions: Thank you for choosing [facility] for your healthcare needs today. It is very important that you follow up as instructed or that you return to the Emergency Department should you have concerns or if your condition changes or worsens in any way. You were seen in the emergency room after an episode of atrial fibrillation your symptoms responded well to the metoprolol you took at home prior to arriving in the emergency room. The rest of your evaluation did not show anything clinically significant. Complete the antibiotics you are previously given for the sinus infection continue your current medications as prescribed. Follow-up with your hydraulic strainer operator when you are able to see if they wish to adjust any of your medications to control your heart rate. 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
[2024-09-17 09:24] LABS: Basophils % 0.4 %; Eosinophils # 0.2 10^3/uL (0.0-0.8); Eosinophils % 1.8 %; Hematocrit 46.3 % (37-53); Lymphocytes # 2.9 10^3/uL (0.8-4.8); Lymphocytes % 29.1 %; Mean Corpuscular HGB Conc 33.3 g/dL (30-55); Mean Corpuscular Hemoglobin 32.4 pg (27-33); Mean Corpuscular Volume 97.3 fl (82-101); Mean Platelet Volume 8.3 fL (7.4-10.4); Monocytes # 0.9 10^3/uL (0.2-0.9); Monocytes % 9.4 %; Neutrophils # 5.85 10^3/uL (1.8-7.7); Nucleated Red Blood Cells % 0 %; Platelet Count 246 10^3/cmm (157-399); Red Blood Count 4.76 10^6/uL (3.85-5.65); Red Cell Distribution Width 12.3 % (12.1-15.1); White Blood Count 9.91 10^3/uL (3.29-11.43)
[2024-09-17 09:39] LABS: Alanine Aminotransferase 18 U/L (0-41); Alkaline Phosphatase 155 U/L (40-130); Anion Gap 14.5 (5-19); Aspartate Amino Transferase 24 U/L (0-40); Blood Urea Nitrogen 15 mg/dL (8-23); Calcium 9.1 mg/dL (8.5-10.5); Carbon Dioxide 26 mmol/L (22-29); Chloride 98 mmol/L (98-107); Creatinine Clr Calc Pharmacy 69.6431; Glucose 110 mg/dL (65-115); Osmolality Calculated 279 mOsm/kg (285-295); Potassium 4.5 mmol/L (3.5-5.1); Sodium 134 mmol/L (136-145); Total Bilirubin 0.3 mg/dL (0.15-1.2)
[2024-09-17 10:04] VITALS: BP 93/58; PULSE 61; O2SAT 93
[2024-09-17 11:41] VITALS: BP 99/65; PULSE 65; RESP 17; O2SAT 96
== END 2024-09-17 11:42 | disposition home or self-care (01) ==
PROVIDERS: Emergency Provider Family Medicine; PCP Family Medicine
DX: J32.9 Chronic sinusitis, unspecified (principal); I48.91 Unspecified atrial fibrillation; Z79.82 Long term (current) use of aspirin
CPT/HCPCS: 71045; 80053; 85025; 93005; 99285

== ENCOUNTER 2024-11-13 17:02 | Emergency (ER) | payer MEDICARE, SELFPAY ==
[2024-11-13 17:04] VITALS: PULSE 74; RESP 16; TEMP 36.5; O2SAT 99; BMI 23.6
--- NOTE | 2024-11-13 17:06 | XRR_ITS ---
PROCEDURE INFORMATION: Exam: XR Chest Exam date and time: 11/13/2024 5:28 PM Age: 84 years old Clinical indication: Other: Palpitations TECHNIQUE: Imaging protocol: Radiologic exam of the chest. Views: 1 view. COMPARISON: CR XR chest 2V* [id number] 09/27/2024 10:33 AM FINDINGS: Tubes, catheters and devices: Left atrial appendage occlusion device. Lungs: Calcified left apical granuloma. No focal consolidation. Mild bibasilar atelectasis. Pleural spaces: Unremarkable. No pleural effusion. No pneumothorax. Heart/Mediastinum: Unremarkable. No cardiomegaly. Vasculature: Atherosclerotic aortic calcifications. Bones/joints: Unremarkable. XR/XR chest 1V portable [id number] IMPRESSION: No acute findings.
--- NOTE | 2024-11-13 17:13 | W.ED.ARRPALP ---
HPI - Arrhythmia/Palpitations General: Chief Complaint: Arrhythmia/Palpitations Stated Complaint: heart fluttering Time Seen by Provider: 11/13/24 17:06 History of Present Illness: 84-year-old man with a history of atrial fibrillation/flutter with plans for ablation in the near future but not on any anticoagulation,, anxiety and a history of urethral stricture who presents emergency room with palpitations. On presentation he is having fairly frequent PVCs. No chest pain. No fevers. No abdominal pain. No vomiting. No altered mental status. No focal motor deficits. No lower extremity swelling Related Data Home Medications ?Medication ?Instructions ?Recorded ?Confirmed ascorbate calcium (vitamin C) 500 500 mg PO QAM 12/12/20 09/17/24 mg tablet flaxseed oil 1,000 mg capsule 1,000 mg PO QAM 12/12/20 09/17/24 selenium 100 mcg tablet 100 mcg PO QAM 12/12/20 09/17/24 melatonin 5 mg tablet 5 mg PO BEDTIME 06/02/23 09/17/24 omega-3 fatty acids 1,000 mg 1,000 mg PO QAM 06/02/23 09/17/24 capsule calcium 333 mg-vit D3 133 1 tab PO BID 09/06/23 09/17/24 unit-magnesium 133 mg-zinc 5 mg tablet (Mike Mag Zinc Plus D3) phenytoin sodium extended 100 mg 100 mg PO BID 09/06/23 09/17/24 capsule (Dilantin Extended) vit C 250 mg-vit E 90 mg-zinc 40 1 tab PO BID 09/06/23 09/17/24 mg-copper 1 [id number] capsule (PreserVision AREDS-2) aspirin 81 mg tablet,delayed 81 mg PO DAILY 01/01/24 09/17/24 release vitamin B complex 1 tab PO DAILY 01/01/24 09/17/24 amoxicillin 875 mg-potassium 1 tab PO BID 09/17/24 09/17/24 clavulanate 125 mg tablet Previous Rx's ?Medication ?Instructions ?Recorded metoprolol tartrate 100 mg tablet 100 mg PO BID #60 tabs 10/24/23 metoprolol tartrate 100 mg tablet 100 mg PO BID #60 tabs 09/17/24 Allergies Allergy/AdvReac Type Severity Reaction Status Date / Time levetiracetam (From [facility]) Allergy ADR-Halluci Verified 07/21/24 16:09 nating Review of Systems Narrative: Constitutional symptoms: Negative except as documented in HPI. Skin symptoms: Negative except as documented in HPI. Eye symptoms: Negative except as documented in HPI. ENMT symptoms: Negative except as documented in HPI. Respiratory symptoms: Negative except as documented in HPI. Cardiovascular symptoms: Negative except as documented in HPI. Gastrointestinal symptoms: Negative except as documented in HPI. Genitourinary symptoms: Negative except as documented in HPI. Musculoskeletal symptoms: Negative except as documented in HPI. Neurologic symptoms: Negative except as documented in HPI. Psychiatric symptoms: Negative except as documented in HPI. Endocrine symptoms: Negative except as documented in HPI. PFSH ED PFSH: Medical History Atrial fibrillation with RVR Anxiety Atrial fibrillation with rapid ventricular response Atrial fibrillation, new onset Urethral stricture Lower urinary tract symptoms (LUTS) Surgical History Hx of tonsillectomy H/O arthroscopy of knee left History of carpal tunnel release left H/O rotator cuff surgery left Family History Father , at age 63 Cancer tongue Mother , at age 64 Lung disease Social History Smoking and tobacco/nicotine status: never used tobacco/nicotine Alcohol intake: current Alcohol intake frequency: 0-2 Drinks per Day Marital status: Current occupational status: retired Physical Exam Narrative: EXAM NARRATIVE: General: Alert, no acute distress. Skin: Warm, dry. Head: Normocephalic, atraumatic. Neck: Supple, trachea midline. Eye: Extraocular movements are intact. Ears, nose, mouth and throat: mucosa moist. Cardiovascular: Regular, Normal peripheral perfusion. Occasional PVCs Respiratory: Lungs are clear to auscultation, respirations are non-labored, breath sounds are equal, Symmetrical chest wall expansion. Gastrointestinal: Soft, Nontender, Non distended Musculoskeletal: Normal ROM, no deformity. Neurological: Alert and oriented, No focal neurological deficit observed. Psychiatric: Cooperative, appropriate mood & affect. Course Vital Signs: Vital signs: Vital Signs Temperature 97.7 F 11/13/24 17:04 Pulse Rate 64 11/13/24 18:43 Respiratory Rate 16 11/13/24 17:04 Blood Pressure 122/63 11/13/24 18:43 Pulse Oximetry 97 11/13/24 18:43 Oxygen Delivery Me thod Room Air 11/13/24 18:43 MDM - Arrhythmia/Palpitations Medical Decision Making Medical decision making: Differential diagnosis including but not limited to and based on the above HPI, review of systems and physical exam: for patient with palpitations: atrial fibrillation with rapid ventricular response. ventricular tachycardia. sinus tachycardia. PVCs. also concern for underlying issues causing tachycardia. Infection, electrolyte abnormalities and thyroid issues Orders placed to evaluate differential diagnosis based on the above differential, HPI and physical exam EKG: Normal sinus rhythm, No ST-T changes, no ectopy, normal ND & QRS intervals, This was reviewed and interpreted by myself the ER physician at 1721. Time 1718. Rate 68. Cardiac monitoring: This was ordered, reviewed and interpreted by myself. Patient does have fairly frequent PVCs at times. Chest x-ray: No acute process. No infiltrate. No pneumothorax. This was reviewed and interpreted by myself the emergency room physician. I also reviewed the radiology report. Lab Review: Laboratory results were reviewed and interpreted by myself the emergency room physician. No leukocytosis. No anemia. No renal failure. Potassium is normal. TSH is normal. Troponin negative I reviewed the patient's medical record. 84-year-old man with a history of atrial fibrillation/flutter with plans for ablation in the near future but not on any anticoagulation,, anxiety and a history of urethral stricture Reexamination: Patient remained stable. No increased work of breathing. No altered mental status. No focal motor deficits. Assessment and plan: PVCs Palpitations - Discharged home - Discussed plan with patient. Answered any questions. - Evaluation and treatment of this problem were appropriate in the emergency setting. Lab Data 11/13/24 17:21 11/13/24 17:21 Laboratory Results WBC 5.53 10^3/uL (3.29-11.43) 11/13/24 17:21 RBC 4.25 10^6/uL (3.85-5.65) 11/13/24 17:21 Hgb 13.70 g/dL (11.27-16.99) 11/13/24 17:21 Hct 41.9 % (37-53) 11/13/24 17:21 MCV 98.6 fl (82-101) 11/13/24 17:21 MCH 32.2 pg (27-33) 11/13/24 17:21 MCHC 32.7 g/dL (30-55) 11/13/24 17:21 RDW 13.1 % (12.1-15.1) 11/13/24 17:21 Plt Count 224 10^3/cmm (157-399) 11/13/24 17:21 MPV 8.9 fL (7.4-10.4) 11/13/24 17:21 Neut % (Auto) 47.2 % 11/13/24 17:21 Lymph % (Auto) 36.9 % 11/13/24 17:21 [place] % (Auto) 11.9 % 11/13/24 17:21 Eos % (Auto) 2.9 % 11/13/24 17:21 Baso % (Auto) 0.9 % 11/13/24 17:21 Neut # (Auto) 2.61 10^3/uL (1.8-7.7) 11/13/24 17:21 Lymph # (Auto) 2.0 10^3/uL (0.8-4.8) 11/13/24 17:21 [place] # (Auto) 0.7 10^3/uL (0.2-0.9) 11/13/24 17:21 Eos # (Auto) 0.2 10^3/uL (0.0-0.8) 11/13/24 17:21 Baso # (Auto) 0.1 10^3/uL (0.0-0.1) 11/13/24 17:21 Nucleated RBC % (auto) 0 % 11/13/24 17:21 Nucleated RBCs # 0.0 /100WBC 11/13/24 17:21 Sodium 135 mmol/L (136-145) L 11/13/24 17:21 Potassium 4.4 mmol/L (3.5-5.1) 11/13/24 17:21 Chloride 101 mmol/L (98-107) 11/13/24 17:21 Carbon Dioxide 26 mmol/L (22-29) 11/13/24 17:21 Anion Gap 12.4 (5-19) 11/13/24 17:21 BUN 17 mg/dL (8-23) 11/13/24 17:21 Creatinine 0.7 mg/dL (0.7-1.2) 11/13/24 17:21 GFR Calculation Not Reportable 11/13/24 17:21 Glucose 85 mg/dL (65-115) 11/13/24 17:21 Calculated Osmolality 281 mOsm/kg (285-295) L 11/13/24 17:21 Lactic Acid 1.1 mmol/L (0.5-2.2) 11/13/24 17:21 Calcium 9.1 mg/dL (8.5-10.5) 11/13/24 17:21 Magnesium 2.4 mg/dL (1.7-2.3) H 11/13/24 17:21 Total Bilirubin 0.2 mg/dL (0.15-1.2) 11/13/24 17:21 AST 22 U/L (0-40) 11/13/24 17:21 ALT 15 U/L (0-41) 11/13/24 17:21 Alkaline Phosphatase 144 U/L (40-130) H 11/13/24 17:21 Troponin T Baseline 12 ng/L (0-15) 11/13/24 17:21 Total Protein 6.5 g/dL (6.6-8.7) L 11/13/24 17:21 Albumin 4.3 g/dL (3.5-5.2) 11/13/24 17:21 Globulin 2.2 g/dL (1.3-4.6) 11/13/24 17:21 TSH 1.71 uIU/mL (0.27-4.20) 11/13/24 17:21 Urine Color Yellow (Yellow) 11/13/24 18:19 Urine Appearance Clear (CLEAR) 11/13/24 18:19 Urine pH 7.5 (5-7) 11/13/24 18:19 Ur Specific [place] 1.010 (1.005-1.030) 11/13/24 18:19 Urine Protein Negative (Negative) 11/13/24 18:19 Urine Glucose (UA) Negative (Normal) 11/13/24 18:19 Urine Ketones Negative (Negative) 11/13/24 18:19 Urine Blood Negative (Negative) 11/13/24 18:19 Urine Nitrate Negative (Negative) 11/13/24 18:19 Urine Bilirubin Negative (Negative) 11/13/24 18:19 Urine Urobilinogen 0.2 mg/dL (Negative) 11/13/24 18:19 Ur Leukocyte Esterase Negative (Negative) 11/13/24 18:19 Urine RBC 0-2 /hpf (0-2) 11/13/24 18:19 Urine WBC 0-5 /hpf (0-5) 11/13/24 18:19 Ur Squamous Epith Cells 0-5 /hpf (0-5) 11/13/24 18:19 Amorphous Sediment Not Reportable 11/13/24 18:19 Urine Bacteria None seen /hpf (NONE) 11/13/24 18:19 Hyaline Casts 0-4 /lpf H 11/13/24 18:19 Influenza A (PCR) Negative (Negative) 11/13/24 17:15 Influenza Type B (PCR) Negative (Negative) 11/13/24 17:15 RSV (PCR) Negative (Negative) 11/13/24 17:15 SARS-CoV-2 (PCR) Negative (Negative) 11/13/24 17:15 All radiology interpretation(s) finalized by discharge Discharge Plan Discharge Patient Disposition: Home Clinical Impression: PVC's (premature ventricular contractions), Palpitations Condition: Stable Prescriptions: No Action ascorbate calcium (vitamin C) 500 mg tablet 500 mg PO QAM flaxseed oil 1,000 mg capsule 1,000 mg PO QAM Rx Instructions: administer with a meal selenium 100 mcg tablet 100 mcg PO QAM melatonin 5 mg Tablet 5 mg PO BEDTIME omega-3 fatty acids 1,000 mg Capsule 1,000 mg PO QAM phenytoin sodium extended [Dilantin Extended] 100 mg capsule 100 mg PO BID calcium carb-D3-mag ox-zinc ox [Mike Mag Zinc Plus D3] 333 mg-133 unit -133 mg-5 mg Tablet 1 tab PO BID PreserVision AREDS-2 250-90-40-1 mg Capsule 1 tab PO BID metoprolol tartrate 100 mg tablet 100 mg PO BID Qty: 60 1RF aspirin [Aspir-81] 81 mg Tablet,Delayed Release (Dr/Ec) 81 mg PO DAILY vitamin B complex Tablet 1 tab PO DAILY amoxicillin-pot clavulanate 875-125 mg tablet 1 tab PO BID metoprolol tartrate 100 mg tablet 100 mg PO BID Qty: 60 0RF Discharge Orders: Discharge ED (Routine); Ordered 11/13/24 Ordered By: Kaela Denny Referrals: Darell Jackson MD [Primary Care Provider] - Discharge Diet: Usual diet Discharge Activity: Increase activity as tolerated Patient Instructions: Heart Palpitations (ED), Opioid Safety, Pain Management Activity Restrictions/Additional Instructions: Thank you for choosing [facility] for your healthcare needs today. Please realize this is an emergency room and that we are providing you with a medical screening exam and this may not be complete and all inclusive of all the testing and or work up that you may need to determine your ailment or severity of your illness. You have been screened and evaluated and felt safe for discharge. Health conditions do change or evolve sometimes and as such it is important that you follow up with your Primary Doctor to be re checked, 3-5 days is a general good time frame for follow up. 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
--- NOTE | 2024-11-13 17:18 | ECG_ITS ---
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
[2024-11-13 17:40] LABS: Basophils # 0.1 10^3/uL (0.0-0.1); Basophils % 0.9 %; Eosinophils # 0.2 10^3/uL (0.0-0.8); Eosinophils % 2.9 %; Hematocrit 41.9 % (37-53); Lymphocytes % 36.9 %; Mean Corpuscular HGB Conc 32.7 g/dL (30-55); Mean Corpuscular Hemoglobin 32.2 pg (27-33); Mean Corpuscular Volume 98.6 fl (82-101); Mean Platelet Volume 8.9 fL (7.4-10.4); Monocytes # 0.7 10^3/uL (0.2-0.9); Monocytes % 11.9 %; Neutrophils # 2.61 10^3/uL (1.8-7.7); Neutrophils % 47.2 %; Nucleated Red Blood Cells % 0 %; Platelet Count 224 10^3/cmm (157-399); Red Blood Count 4.25 10^6/uL (3.85-5.65); Red Cell Distribution Width 13.1 % (12.1-15.1); White Blood Count 5.53 10^3/uL (3.29-11.43)
[2024-11-13 18:03] LABS: Troponin(5th) Baseline 12 ng/L (0-15)
[2024-11-13 18:05] LABS: Lactic Sepsis W/Reflex 1.1 mmol/L (0.5-2.2)
[2024-11-13 18:08] LABS: Alanine Aminotransferase 15 U/L (0-41); Albumin Level 4.3 g/dL (3.5-5.2); Alkaline Phosphatase 144 U/L (40-130); Anion Gap 12.4 (5-19); Aspartate Amino Transferase 22 U/L (0-40); Blood Urea Nitrogen 17 mg/dL (8-23); Calcium 9.1 mg/dL (8.5-10.5); Carbon Dioxide 26 mmol/L (22-29); Chloride 101 mmol/L (98-107); Creatinine Clr Calc Pharmacy 69.6431; Globulin 2.2 g/dL (1.3-4.6); Glucose 85 mg/dL (65-115); Magnesium 2.4 mg/dL (1.7-2.3); Osmolality Calculated 281 mOsm/kg (285-295); Potassium 4.4 mmol/L (3.5-5.1); Sodium 135 mmol/L (136-145); Thyroid Stimulating Hormone 1.71 uIU/mL (0.27-4.20); Total Bilirubin 0.2 mg/dL (0.15-1.2); Total Protein 6.5 g/dL (6.6-8.7)
[2024-11-13 18:43] VITALS: BP 122/63; PULSE 64; O2SAT 97
[2024-11-13 18:50] LABS: Bilirubin Urine Negative (Negative); Blood Urine Negative (Negative); Glucose Urine UA Negative (Normal); Ketones Urine Negative (Negative); Leukocyte Esterase Urine Negative (Negative); Nitrate Urine Negative (Negative); Protein Urine Negative (Negative); Urine Appearance Clear (CLEAR); Urine Color Yellow (Yellow); Urobilinogen Urine 0.2 mg/dL (Negative); pH Urine 7.5 (5-7)
[2024-11-13 18:55] LABS: Bacteria Urine None Seen /hpf; Hyaline Casts Urine 0-4 /lpf; RBC Urine 0-2 /hpf (0-2); Squamous Epithelial Cell Urine 0-5 /hpf (0-5); WBC Urine 0-5 /hpf (0-5)
[2024-11-13 18:56] LABS: Influenza A NEGATIVE (Negative); Influenza B NEGATIVE (Negative); Respiratory Syncytial Virus Ce NEGATIVE (Negative); SARS-CoV-2 PCR NEGATIVE (Negative)
[2024-11-13 19:34] VITALS: BP 132/71; PULSE 66; O2SAT 99
[2024-11-13 19:53] LABS: Troponin 5 2HR 10.39 ng/L (0-15); Troponin 5 2HR Delta -1.61 ABS# (0-10)
== END 2024-11-13 19:35 | disposition home or self-care (01) ==
PROVIDERS: Emergency Provider Emergency Medicine; PCP Family Medicine
DX: I49.3 Ventricular premature depolarization (principal); R00.2 Palpitations; Z11.52 Encounter for screening for COVID-19; Z79.82 Long term (current) use of aspirin
CPT/HCPCS: 36415; 71045; 80053; 81001; 83605; 83735; 84443; 84484; 85025; 87637; 93005; 99285

== ENCOUNTER 2024-11-21 17:41 | Emergency (ER) | payer MEDICARE, SELFPAY ==
[2024-11-21 17:44] VITALS: BP 118/67; PULSE 103; TEMP 36.7; O2SAT 98; BMI 24.3
--- NOTE | 2024-11-21 17:49 | ECG_ITS ---
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 Measurements Intervals [place] Rate: 93 P: 0 [place]: 0 QRS: 2 QRSD: 89 T: 67 QT: 308 QTc: 385 Interpretive Statements ATRIAL FLUTTER/TACHYCARDIA NONSPECIFIC T-WAVE ABNORMALITY ABNORMAL RHYTHM ECG Compared to ECG 11/13/2024 17:18:31 T-wave abnormality now present Sinus rhythm no longer present Electronically Signed On 11-21-2024 20:56:22 CDT by Jens Turner M.D. [id number]
[2024-11-21 18:17] LABS: Basophils # 0.1 10^3/uL (0.0-0.1); Eosinophils # 0.2 10^3/uL (0.0-0.8); Eosinophils % 2.3 %; Lymphocytes # 2.5 10^3/uL (0.8-4.8); Lymphocytes % 33.8 %; Mean Corpuscular HGB Conc 33.4 g/dL (30-55); Mean Corpuscular Hemoglobin 32.9 pg (27-33); Mean Corpuscular Volume 98.3 fl (82-101); Mean Platelet Volume 8.4 fL (7.4-10.4); Monocytes # 0.8 10^3/uL (0.2-0.9); Monocytes % 11.1 %; Neutrophils # 3.78 10^3/uL (1.8-7.7); Neutrophils % 51.7 %; Nucleated Red Blood Cells % 0 %; Platelet Count 203 10^3/cmm (157-399); Red Blood Count 4.17 10^6/uL (3.85-5.65); Red Cell Distribution Width 13.2 % (12.1-15.1); White Blood Count 7.31 10^3/uL (3.29-11.43)
[2024-11-21 18:27] LABS: INR 0.97 (0.8-1.2)
[2024-11-21 18:46] LABS: Alanine Aminotransferase 16 U/L (0-41); Albumin Level 4.1 g/dL (3.5-5.2); Alkaline Phosphatase 130 U/L (40-130); Anion Gap 13.5 (5-19); Aspartate Amino Transferase 22 U/L (0-40); Blood Urea Nitrogen 18 mg/dL (8-23); Calcium 8.7 mg/dL (8.5-10.5); Carbon Dioxide 25 mmol/L (22-29); Chloride 104 mmol/L (98-107); Creatinine Clr Calc Pharmacy 68.2535; Globulin 2.5 g/dL (1.3-4.6); Glucose 104 mg/dL (65-115); Osmolality Calculated 288 mOsm/kg (285-295); Potassium 4.5 mmol/L (3.5-5.1); Sodium 138 mmol/L (136-145); Thyroid Stimulating Hormone 1.65 uIU/mL (0.27-4.20); Total Bilirubin 0.2 mg/dL (0.15-1.2); Total Protein 6.6 g/dL (6.6-8.7)
--- NOTE | 2024-11-21 19:54 | W.ED.ARRPALP ---
HPI - Arrhythmia/Palpitations General: Chief Complaint: Arrhythmia/Palpitations Stated Complaint: high hr Time Seen by Provider: 11/21/24 19:27 History of Present Illness: 84-year-old man with a history of atrial fibrillation/flutter with plans for ablation in the near future but not on any anticoagulation,, anxiety and a history of urethral stricture who presents emergency room with palpitations/tachycardia. He is taken extra metoprolol as he usually does them by the time he is back in room his heart rate is back under control. He has been here several times recently for this. He still about 2 and half weeks out from his ablation. No chest pain. No altered mental status. Currently no increased work of breathing. Related Data Home Medications ?Medication ?Instructions ?Recorded ?Confirmed ascorbate calcium (vitamin C) 500 500 mg PO QAM 12/12/20 09/17/24 mg tablet flaxseed oil 1,000 mg capsule 1,000 mg PO QAM 12/12/20 09/17/24 selenium 100 mcg tablet 100 mcg PO QAM 12/12/20 09/17/24 melatonin 5 mg tablet 5 mg PO BEDTIME 06/02/23 09/17/24 omega-3 fatty acids 1,000 mg 1,000 mg PO QAM 06/02/23 09/17/24 capsule calcium 333 mg-vit D3 133 1 tab PO BID 09/06/23 09/17/24 unit-magnesium 133 mg-zinc 5 mg tablet (Mike Mag Zinc Plus D3) phenytoin sodium extended 100 mg 100 mg PO BID 09/06/23 09/17/24 capsule (Dilantin Extended) vit C 250 mg-vit E 90 mg-zinc 40 1 tab PO BID 09/06/23 09/17/24 mg-copper 1 dl-[id number]-vwejhn capsule (PreserVision AREDS-2) aspirin 81 mg tablet,delayed 81 mg PO DAILY 01/01/24 09/17/24 release vitamin B complex 1 tab PO DAILY 01/01/24 09/17/24 amoxicillin 875 mg-potassium 1 tab PO BID 09/17/24 09/17/24 clavulanate 125 mg tablet Previous Rx's ?Medication ?Instructions ?Recorded metoprolol tartrate 100 mg tablet 100 mg PO BID #60 tabs 10/24/23 metoprolol tartrate 100 mg tablet 100 mg PO BID #60 tabs 09/17/24 Allergies Allergy/AdvReac Type Severity Reaction Status Date / Time levetiracetam (From [facility]) Allergy ADR-Halluci Verified 11/21/24 17:55 nating Review of Systems Narrative: Constitutional symptoms: Negative except as documented in HPI. Skin symptoms: Negative except as documented in HPI. Eye symptoms: Negative except as documented in HPI. ENMT symptoms: Negative except as documented in HPI. Respiratory symptoms: Negative except as documented in HPI. Cardiovascular symptoms: Negative except as documented in HPI. Gastrointestinal symptoms: Negative except as documented in HPI. Genitourinary symptoms: Negative except as documented in HPI. Musculoskeletal symptoms: Negative except as documented in HPI. Neurologic symptoms: Negative except as documented in HPI. Psychiatric symptoms: Negative except as documented in HPI. Endocrine symptoms: Negative except as documented in HPI. PFSH ED PFSH: Medical History Atrial fibrillation with RVR Anxiety Atrial fibrillation with rapid ventricular response Atrial fibrillation, new onset Urethral stricture Lower urinary tract symptoms (LUTS) Surgical History Hx of tonsillectomy H/O arthroscopy of knee left History of carpal tunnel release left H/O rotator cuff surgery left Family History Father , at age 63 Cancer tongue Mother , at age 64 Lung disease Social History Smoking and tobacco/nicotine status: never used tobacco/nicotine Alcohol intake: current Alcohol intake frequency: 0-2 Drinks per Day Marital status: Current occupational status: retired Physical Exam Narrative: EXAM NARRATIVE: General: Alert, no acute distress. Skin: Warm, dry. Head: Normocephalic, atraumatic. Neck: Supple, trachea midline. Eye: Extraocular movements are intact. Ears, nose, mouth and throat: mucosa moist. Cardiovascular: Irregularly irregular, Normal peripheral perfusion. Respiratory: Lungs are clear to auscultation, respirations are non-labored, breath sounds are equal, Symmetrical chest wall expansion. Gastrointestinal: Soft, Nontender, Non distended Musculoskeletal: Normal ROM, no deformity. Neurological: Alert and oriented, No focal neurological deficit observed. Psychiatric: Cooperative, appropriate mood & affect. Course Vital Signs: Vital signs: Vital Signs Temperature 98.0 F 11/21/24 17:44 Pulse Rate 62 11/21/24 20:31 Blood Pressure 118/67 11/21/24 17:44 Pulse Oximetry 92 11/21/24 20:31 Oxygen Delivery Me thod Room Air 11/21/24 20:00 MDM - Arrhythmia/Palpitations Medical Decision Making Medical decision making: Differential diagnosis including but not limited to and based on the above HPI, review of systems and physical exam: for patient with palpitations: atrial fibrillation with rapid ventricular response. ventricular tachycardia. sinus tachycardia. PVCs. also concern for underlying issues causing tachycardia. Infection, electrolyte abnormalities and thyroid issues Orders placed to evaluate differential diagnosis based on the above differential, HPI and physical exam EKG: Time 1749. Rate 93. Atrial fibrillation with controlled rate, No ST-T changes, no ectopy, This was reviewed and interpreted by myself the ER physician at 1755 Lab Review: Laboratory results were reviewed and interpreted by myself the emergency room physician. Lab work is unremarkable. I reviewed the patient's medical record. Reexamination: Patient heart rate has decreased into the 60s now. He says he feels he is ready to go home. Assessment and plan: Atrial flutter with rapid ventricular response ?Patient recovered using his own home medications again. - Discharged home - Discussed plan with patient. Answered any questions. - Evaluation and treatment of this problem were appropriate in the emergency setting. Lab Data 11/21/24 18:07 11/21/24 18:07 Laboratory Results WBC 7.31 10^3/uL (3.29-11.43) 11/21/24 18:07 RBC 4.17 10^6/uL (3.85-5.65) 11/21/24 18:07 Hgb 13.70 g/dL (11.27-16.99) 11/21/24 18:07 Hct 41.0 % (37-53) 11/21/24 18:07 MCV 98.3 fl (82-101) 11/21/24 18:07 MCH 32.9 pg (27-33) 11/21/24 18:07 MCHC 33.4 g/dL (30-55) 11/21/24 18:07 RDW 13.2 % (12.1-15.1) 11/21/24 18:07 Plt Count 203 10^3/cmm (157-399) 11/21/24 18:07 MPV 8.4 fL (7.4-10.4) 11/21/24 18:07 Neut % (Auto) 51.7 % 11/21/24 18:07 Lymph % (Auto) 33.8 % 11/21/24 18:07 [place] % (Auto) 11.1 % 11/21/24 18:07 Eos % (Auto) 2.3 % 11/21/24 18:07 Baso % (Auto) 1.0 % 11/21/24 18:07 Neut # (Auto) 3.78 10^3/uL (1.8-7.7) 11/21/24 18:07 Lymph # (Auto) 2.5 10^3/uL (0.8-4.8) 11/21/24 18:07 [place] # (Auto) 0.8 10^3/uL (0.2-0.9) 11/21/24 18:07 Eos # (Auto) 0.2 10^3/uL (0.0-0.8) 11/21/24 18:07 Baso # (Auto) 0.1 10^3/uL (0.0-0.1) 11/21/24 18:07 Nucleated RBC % (auto) 0 % 11/21/24 18:07 Nucleated RBCs # 0.0 /100WBC 11/21/24 18:07 PT 13.50 SECONDS (12.1-14.9) 11/21/24 18:07 INR 0.97 (0.8-1.2) 11/21/24 18:07 Sodium 138 mmol/L (136-145) 11/21/24 18:07 Potassium 4.5 mmol/L (3.5-5.1) 11/21/24 18:07 Chloride 104 mmol/L (98-107) 11/21/24 18:07 Carbon Dioxide 25 mmol/L (22-29) 11/21/24 18:07 Anion Gap 13.5 (5-19) 11/21/24 18:07 BUN 18 mg/dL (8-23) 11/21/24 18:07 Creatinine 0.7 mg/dL (0.7-1.2) 11/21/24 18:07 GFR Calculation Not Reportable 11/21/24 18:07 Glucose 104 mg/dL (65-115) 11/21/24 18:07 Calculated Osmolality 288 mOsm/kg (285-295) 11/21/24 18:07 Calcium 8.7 mg/dL (8.5-10.5) 11/21/24 18:07 Total Bilirubin 0.2 mg/dL (0.15-1.2) 11/21/24 18:07 AST 22 U/L (0-40) 11/21/24 18:07 ALT 16 U/L (0-41) 11/21/24 18:07 Alkaline Phosphatase 130 U/L (40-130) 11/21/24 18:07 Total Protein 6.6 g/dL (6.6-8.7) 11/21/24 18:07 Albumin 4.1 g/dL (3.5-5.2) 11/21/24 18:07 Globulin 2.5 g/dL (1.3-4.6) 11/21/24 18:07 TSH 1.65 uIU/mL (0.27-4.20) 11/21/24 18:07 No radiology studies performed this visit Discharge Plan Discharge Patient Disposition: Home Clinical Impression: Atrial flutter Condition: Stable Prescriptions: No Action ascorbate calcium (vitamin C) 500 mg tablet 500 mg PO QAM flaxseed oil 1,000 mg capsule 1,000 mg PO QAM Rx Instructions: administer with a meal selenium 100 mcg tablet 100 mcg PO QAM melatonin 5 mg Tablet 5 mg PO BEDTIME omega-3 fatty acids 1,000 mg Capsule 1,000 mg PO QAM phenytoin sodium extended [Dilantin Extended] 100 mg capsule 100 mg PO BID calcium carb-D3-mag ox-zinc ox [Mike Mag Zinc Plus D3] 333 mg-133 unit -133 mg-5 mg Tablet 1 tab PO BID PreserVision AREDS-2 250-90-40-1 mg Capsule 1 tab PO BID metoprolol tartrate 100 mg tablet 100 mg PO BID Qty: 60 1RF aspirin [Aspir-81] 81 mg Tablet,Delayed Release (Dr/Ec) 81 mg PO DAILY vitamin B complex Tablet 1 tab PO DAILY amoxicillin-pot clavulanate 875-125 mg tablet 1 tab PO BID metoprolol tartrate 100 mg tablet 100 mg PO BID Qty: 60 0RF Discharge Orders: Discharge ED (Routine); Ordered 11/21/24 Ordered By: Kaela Denny Referrals: Darell Jackson MD [Primary Care Provider] - Discharge Diet: Usual diet Discharge Activity: Increase activity as tolerated Patient Instructions: Opioid Safety, Pain Management Activity Restrictions/Additional Instructions: Thank you for choosing [facility] for your healthcare needs today. Please realize this is an emergency room and that we are providing you with a medical screening exam and this may not be complete and all inclusive of all the testing and or work up that you may need to determine your ailment or severity of your illness. You have been screened and evaluated and felt safe for discharge. Health conditions do change or evolve sometimes and as such it is important that you follow up with your Primary Doctor to be re checked, 3-5 days is a general good time frame for follow up. 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
[2024-11-21 20:00] VITALS: PULSE 65; O2SAT 96
[2024-11-21 20:31] VITALS: PULSE 62; O2SAT 92
== END 2024-11-21 20:31 | disposition home or self-care (01) ==
PROVIDERS: Emergency Medicine; Emergency Provider Emergency Medicine; PCP Family Medicine
DX: I48.92 Unspecified atrial flutter (principal); Z79.82 Long term (current) use of aspirin
CPT/HCPCS: 36415; 80053; 84443; 85025; 85610; 93005; 99284

== ENCOUNTER 2024-12-05 15:56 | Inpatient (IN) | payer MEDICARE, SELFPAY ==
[2024-12-05] VITALS (7 sets, daily range): BP systolic 87–141; BP diastolic 57–86; PULSE 55–148; RESP 16–24; TEMP 37.6; O2SAT 96–98; BMI 24.3
--- NOTE | 2024-12-05 16:00 | XRR_ITS ---
PROCEDURE INFORMATION: Exam: XR Chest Exam date and time: 12/05/2024 4:11 PM Age: 84 years old Clinical indication: Pain; Angina pectoris; Additional info: Cp TECHNIQUE: Imaging protocol: Radiologic exam of the chest. Views: 1 view. COMPARISON: CR (CHEST, ) 11/13/2024 5:28 PM FINDINGS: Lungs: Unremarkable. No consolidation. Pleural spaces: Unremarkable. No pleural effusion. No pneumothorax. Heart/Mediastinum: Unremarkable. No cardiomegaly. Bones/joints: Unremarkable. XR/XR chest 1V portable [id number] IMPRESSION: No acute findings.
--- NOTE | 2024-12-05 16:02 | ECG_ITS ---
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 Measurements Intervals [place] Rate: 144 P: 0 RI: 0 QRS: 0 QRSD: 86 T: 95 QT: 261 QTc: 404 Interpretive Statements ATRIAL FLUTTER WITH RAPID VENTRICULAR RESPONSE NONSPECIFIC ST & T-WAVE ABNORMALITY Compared to ECG 11/21/2024 17:49:44 No significant changes Electronically Signed On 12-05-2024 22:23:53 CDT by Naga Celis M.D. [email or web address] [id number]
--- NOTE | 2024-12-05 16:07 | ED_ITS ---
HPI - Arrhythmia/Palpitations 2 General: Chief Complaint: Arrhythmia/Palpitations Stated Complaint: chest pain, a fib Time Seen by Provider: 12/05/24 16:07 History of Present Illness: 84-year-old male presents emergency room complaining of chest discomfort and rapid heart rate. Patient has a history of A-fib flutter. He usually takes 100 mg of metoprolol twice a day he took 100 mg this morning then took another 50 when his heart rate began to go fast. This persisted at a rapid rate throughout the day. He has a little chest discomfort with that as well he is scheduled to see electrophysiology for consideration of an ablation. At the time I seen the patient is not having any chest pain interestingly he first came in the room to see him his heart rate was normal at 140-150 in A-fib while we are taking his history and doing his exam he briefly converted to a normal sinus rhythm around 90 bpm before we could repeat EKG he had gone back into atrial fibrillation with a rate in the mid 140s. Related Data Home Medications ?Medication ?Instructions ?Recorded ?Confirmed melatonin 5 mg tablet 5 mg PO BEDTIME 06/02/2303/24 omega-3 fatty acids 1,000 mg 1,000 mg PO QAM 06/02/23 12/05/24 capsule phenytoin sodium extended 100 mg 100 mg PO BID 12/05/24 capsule (Dilantin Extended) vit C 250 mg-vit E 90 mg-zinc 40 1 tab PO BID 09/06/23 12/05/24 mg-copper 1 [id number] capsule (PreserVision AREDS-2) aspirin 81 mg tablet,delayed 81 mg PO DAILY 01/01/24 0 12/05/24 release Previous Rx's ?Medication ?Instructions ?Recorded metoprolol tartrate 100 mg tablet 100 mg PO BID #60 ta bs 09/17/24 Allergies Allergy/AdvReac Type Severity Reaction Status Date / Time levetiracetam (From [facility]) Allergy ADR-Halluci Verified 12/05/24 16:06 venancio Review of Systems 2 Const: Denies: fever(s) or chills Card: Reports: chest pain, palpitations and irregular heart rhythm; Denies: edema or swelling of feet/ankles Resp: Denies: dyspnea GI: Denies: abdominal pain : Denies: dysuria, urinary frequency or urinary urgency Musc: Denies: neck pain or back pain Skin/Breast: Denies: rash PFSH ED 2 PFSH: Medical History (Updated 12/05/24 @ 17:32 by Brett Engel DO) Anxiety Atrial fibrillation with rapid ventricular response Atrial fibrillation, new onset Urethral stricture Lower urinary tract symptoms (LUTS) Surgical History Hx of tonsillectomy H/O arthroscopy of knee left History of carpal tunnel release left H/O rotator cuff surgery left Family History Father , at age 63 Cancer tongue Mother , at age 64 Lung disease Social History Smoking and tobacco/nicotine status: never used tobacco/nicotine Alcohol intake: current Alcohol intake frequency: 0-2 Drinks per Day Marital status: Current occupational status: retired Physical Exam 2 Const: GENERAL APPEARANCE: cooperative and comfortable O RIENTATION/CONSCIOUSNESS: Yes awake, Yes oriented to person, Yes oriented to place and Yes oriented to time HENMT: COMMON NORMALS: normocephalic, atraumatic and hearing grossly normal bilaterally HEAD & SCALP: normocephalic and atraumatic Resp: COMMON NORMALS: normal respiratory effort, No retractions, No use of accessory muscles and clear to auscultation bilaterally AUSCULTATION: clear to auscultation bilaterally Cardio: COMMON NORMALS: regular rate, regular rhythm and No murmurs present (Cardio) RATE: regular rate RHYTHM: regular rhythm GI: COMMON NORMALS: Soft to palpation and No hepatosplenomegaly present A USCULTATION: Yes normoactive bowel sounds PALPATION: Yes Soft to palpation, No Tenderness to palpation present (GI), No Guarding due to palpation present (GI) and Yes No hepatosplenomegaly present Extremity: COMMON NORMALS: normal to inspection, capillary refill normal, no clubbing, cyanosis or edema, no calf tenderness and no pedal edema Neuro: SENSORIUM/ORIENTATION: Yes oriented to person, Yes oriented to place and Yes oriented to time Skin: COMMON NORMALS: no rashes or lesions noted GENERAL SKIN EXAM: no rashes or lesions noted Course 2 Vital Signs: Vital signs: Vital Signs Temperature 99.6 F 12/05/24 16:04 Pulse Rate 55 L 12/05/24 16:40 Respiratory Rate 16 12/05/24 16:04 Blood Pressure 87/57 12/05/24 16:40 Pulse Oximetry 96 12/05/24 16:40 Oxygen Delivery Me thod Room Air 12/05/24 16:04 MDM - Arrhythmia/Palpitations Medical Decision Making Patient presented to the emergency room in [facility] with RVR while we are talking to him he converted that he went back [facility]. He we gave him a push dose of Cardizem after which patient had fairly significant sinus pauses and bradycardia over time this began to resolve and his heart rate is improved to a consistent 70s. Shortly after the Cardizem however he had a heart rate in the 30s and 40s at times blood pressure did take a slight decrease he was given a liter of fluids and improved. Will place him on observation consult cardiology. Discussed with hospitalist. Medical Records I reviewed the patient's medical records. Lab Data I reviewed the patient's lab results. 12/05/24 16:19 12/05/24 16:19 Radiology Impressions Chest X-Ray 12/05/24 16:00 IMPRESSION: No acute findings. Laboratory Results WBC 6.79 10^3/uL (3.29-11.43) 12/05/24 16:19 RBC 4.64 10^6/uL (3.85-5.65) 12/05/24 16:19 Hgb 15.30 g/dL (11.27-16.99) 12/05/24 16:19 Hct 45.6 % (37-53) 12/05/24 16:19 MCV 98.3 fl (82-101) 12/05/24 16:19 MCH 33.0 pg (27-33) 12/05/24 16:19 MCHC 33.6 g/dL (30-55) 12/05/24 16:19 RDW 13.2 % (12.1-15.1) 12/05/24 16:19 Plt Count 223 10^3/cmm (157-399) 12/05/24 16:19 MPV 8.9 fL (7.4-10.4) 12/05/24 16:19 Neut % (Auto) 47.1 % 12/05/24 16:19 Lymph % (Auto) 39.9 % 12/05/24 16:19 [place] % (Auto) 9.9 % 12/05/24 16:19 Eos % (Auto) 1.8 % 12/05/24 16:19 Baso % (Auto) 1.0 % 12/05/24 16:19 Neut # (Auto) 3.20 10^3/uL (1.8-7.7) 12/05/24 16:19 Lymph # (Auto) 2.7 10^3/uL (0.8-4.8) 12/05/24 16:19 [place] # (Auto) 0.7 10^3/uL (0.2-0.9) 12/05/24 16:19 Eos # (Auto) 0.1 10^3/uL (0.0-0.8) 12/05/24 16:19 Baso # (Auto) 0.1 10^3/uL (0.0-0.1) 12/05/24 16:19 Nucleated RBC % (auto) 0 % 12/05/24 16:19 Nucleated RBCs # 0.0 /100WBC 12/05/24 16:19 PT 13.60 SECONDS (12.1-14.9) 12/05/24 16:19 INR 0.97 (0.8-1.2) 12/05/24 16:19 Sodium 138 mmol/L (136-145) 12/05/24 16:19 Potassium 4.8 mmol/L (3.5-5.1) 12/05/24 16:19 Chloride 105 mmol/L (98-107) 12/05/24 16:19 Carbon Dioxide 23 mmol/L (22-29) 12/05/24 16:19 Anion Gap 14.8 (5-19) 12/05/24 16:19 BUN 16 mg/dL (8-23) 12/05/24 16:19 Creatinine 0.6 mg/dL (0.7-1.2) L 12/05/24 16:19 GFR Calculation Not Reportable 12/05/24 16:19 Glucose 130 mg/dL (65-115) H 12/05/24 16:19 Calculated Osmolality 289 mOsm/kg (285-295) 12/05/24 16:19 Calcium 9.2 mg/dL (8.5-10.5) 12/05/24 16:19 Total Bilirubin 0.2 mg/dL (0.15-1.2) 12/05/24 16:19 AST 25 U/L (0-40) 12/05/24 16:19 ALT 17 U/L (0-41) 12/05/24 16:19 Alkaline Phosphatase 135 U/L (40-130) H 12/05/24 16:19 Troponin T Baseline 11 ng/L (0-15) 12/05/24 16:19 Total Protein 6.8 g/dL (6.6-8.7) 12/05/24 16:19 Albumin 4.3 g/dL (3.5-5.2) 12/05/24 16:19 Globulin 2.5 g/dL (1.3-4.6) 12/05/24 16:19 Lipase 46 U/L (13-60) 12/05/24 16:19 All radiology interpretation(s) finalized by discharge Discharge Plan Discharge Patient Disposition: Placed in Observation Clinical Impression: Atrial fibrillation with RVR, Medication side effect, Bradycardia Condition: Stable Prescriptions: No Action melatonin 5 mg Tablet 5 mg PO BEDTIME omega-3 fatty acids 1,000 mg Capsule 1,000 mg PO QAM phenytoin sodium extended [Dilantin Extended] 100 mg capsule 100 mg PO BID PreserVision AREDS-2 250-90-40-1 mg Capsule 1 tab PO BID aspirin [Aspir-81] 81 mg Tablet,Delayed Release (Dr/Ec) 81 mg PO DAILY metoprolol tartrate 100 mg tablet 100 mg PO BID Qty: 60 0RF Referrals: Darell Jackson MD [Primary Care Provider] - Print Language: Belarusian Coding Level of Care Code ED Narrow Fabric Calenderer for Chg Fwd
[2024-12-05] MEDS: dilTIAZem 5 mg/mL SDV 5 mL 20 MG IVP (16:23)
--- NOTE | 2024-12-05 16:31 | PC.NURSE ---
PT CONVERTED TO NORMAL SINUS RHYTHM AT 1625
[2024-12-05 16:47] LABS: Basophils # 0.1 10^3/uL (0.0-0.1); Eosinophils # 0.1 10^3/uL (0.0-0.8); Eosinophils % 1.8 %; Hematocrit 45.6 % (37-53); Lymphocytes # 2.7 10^3/uL (0.8-4.8); Lymphocytes % 39.9 %; Mean Corpuscular HGB Conc 33.6 g/dL (30-55); Mean Corpuscular Volume 98.3 fl (82-101); Mean Platelet Volume 8.9 fL (7.4-10.4); Monocytes # 0.7 10^3/uL (0.2-0.9); Monocytes % 9.9 %; Neutrophils % 47.1 %; Nucleated Red Blood Cells % 0 %; Platelet Count 223 10^3/cmm (157-399); Red Blood Count 4.64 10^6/uL (3.85-5.65); Red Cell Distribution Width 13.2 % (12.1-15.1); White Blood Count 6.79 10^3/uL (3.29-11.43)
[2024-12-05 17:08] LABS: Troponin(5th) Baseline 11 ng/L (0-15)
[2024-12-05 17:09] LABS: INR 0.97 (0.8-1.2)
[2024-12-05 17:10] LABS: Alanine Aminotransferase 17 U/L (0-41); Albumin Level 4.3 g/dL (3.5-5.2); Alkaline Phosphatase 135 U/L (40-130); Blood Urea Nitrogen 16 mg/dL (8-23); Calcium 9.2 mg/dL (8.5-10.5); Carbon Dioxide 23 mmol/L (22-29); Chloride 105 mmol/L (98-107); Creatinine Clr Calc Pharmacy 68.2535; Globulin 2.5 g/dL (1.3-4.6); Glucose 130 mg/dL (65-115); Lipase 46 U/L (13-60); Osmolality Calculated 289 mOsm/kg (285-295); Sodium 138 mmol/L (136-145); Total Bilirubin 0.2 mg/dL (0.15-1.2); Total Protein 6.8 g/dL (6.6-8.7)
[2024-12-05 17:12] LABS: Anion Gap 14.8 (5-19); Aspartate Amino Transferase 25 U/L (0-40); Potassium 4.8 mmol/L (3.5-5.1)
--- NOTE | 2024-12-05 17:21 | PM.HP ---
Providers/Chief Complaint Primary Care Provider: Darell Jackson MD Chief Complaint: chest pain, a fib History of Present Illness Jesus Avilez is a 84 year old male with a past medical history of atrial fibrillation, status post Watchman procedure, with plans on ablation at [facility] by EP in the next few weeks, who presents to [facility] due to chest palpitations. Patient reports chest palpitations this morning, he took an extra 50 of his metoprolol, total of 150 mg this morning but continued to have palpitations so he presented to emergency room for evaluation. Currently alert oriented x 3, following all commands, MAP is greater than 65 heart rates in the 60s, normal sinus rhythm, he is alert awake, following all commands, has no pain complaints, no chest pain, shortness of breath, abdominal pain, no fevers, no chills Review of Systems Const: Denies: fever(s), fatigue or malaise Card: Denies: chest pain Resp: Denies: dyspnea Neuro: Denies: headache(s), weakness in extremities, dizziness or confusion Medications/Allergies Home Medications ?Medication ?Instructions ?Recorded ?Confirmed ?Last Taken ?Type melatonin 5 mg tablet 5 mg PO BEDTIME 06/02/23 12/05/24 09/16/24 History omega-3 fatty acids 1,000 mg 1,000 mg PO QAM 06/02/23 12/05/24 09/14/24 History capsule phenytoin sodium extended 100 mg 100 mg PO BID 09/06/23 12/05/24 09/14/24 History capsule (Dilantin Extended) vit C 250 mg-vit E 90 mg-zinc 40 1 tab PO BID 09/06/23 12/05/24 09/17/24 History mg-copper 1 [id number] capsule (PreserVision AREDS-2) aspirin 81 mg tablet,delayed 81 mg PO DAILY 01/01/24 12/05/24 09/17/24 History release metoprolol tartrate 100 mg tablet 100 mg PO BID #60 tabs 09/17/24 12/05/24 Unknown Rx Allergies Allergy/AdvReac Type Severity Reaction Status Date / Time levetiracetam (From [facility]) Allergy ADR-Halluci Verified 12/05/24 16:06 venancio [facility] Acute PFSH: Medical History (Updated 04/07/25 @ 17:24 by Rodrigo Strauss MD) Atrial fibrillation with RVR Anxiety Atrial fibrillation with rapid ventricular response Atrial fibrillation, new onset Urethral stricture Lower urinary tract symptoms (LUTS) Surgical History Hx of tonsillectomy H/O arthroscopy of knee left History of carpal tunnel release left H/O rotator cuff surgery left Family History Father , at age 63 Cancer tongue Mother , at age 64 Lung disease Social History Smoking and tobacco/nicotine status: never used tobacco/nicotine Alcohol intake: current Alcohol intake frequency: 0-2 Drinks per Day Marital status: Current occupational status: retired Vitals/I&O/Wt Last Vital Signs Temp 99.6 F 12/05/24 16:04 Pulse 55 L 12/05/24 16:40 Resp 16 12/05/24 16:04 BP 87/57 12/05/24 16:40 Pulse Ox 96 12/05/24 16:40 O2 Del Method Room Air 12/05/24 16:04 Weight last 48 hrs Weight 70.307 kg Physical Exam Const: COMMON NORMALS: no acute distress and patient oriented x3 HENMT: COMMON NORMALS: normocephalic HEAD & SCALP: normocephalic Eye: COMMON NORMALS: Equal, round and reactive pupils present Neck/C-Spine: COMMON NORMALS: no JVD Resp: COMMON NORMALS: normal respiratory effort, No retractions, No use of accessory muscles and clear to auscultation bilaterally AUSCULTATION: clear to auscultation bilaterally Cardio: COMMON NORMALS: no JVD, regular rate, regular rhythm, S1 normal heart sound present and S2 normal heart sound present RATE: regular rate RHYTHM: regular rhythm HEART SOUNDS: S1 normal heart sound present and S2 normal heart sound present GI: COMMON NORMALS: Normal to inspection, nondistended, normoactive bowel sounds present, Soft to palpation and non-tender Extremity: COMMON NORMALS: no calf tenderness and no pedal edema Neuro: COMMON NORMALS: patient oriented x3 and CN's II-XII intact bilaterally Psych: COMMON NORMALS: mental status grossly normal Data 12/05/24 16:19 12/05/24 16:19 A&P Assessment and plan (1) Atrial fibrillation with RVR: Plan Atrial fibrillation with rapid ventricular response -History of Watchman device -Plans on EP ablation in the next few weeks - Currently in normal sinus rhythm, with MAP at 65 -Telemetry monitoring - Patient developed bradycardia, hypotension with Cardizem - He took a total of 150 mg of metoprolol today - Will give him 50 mg of p.o. metoprolol this evening, resume home dose 100 twice daily tomorrow morning - Cardiology consulted - Full code - Lovenox for DVT prophylaxis PDMP PDMP Reviewed: Not Reviewed Attestations Medical Necessity Statement*: Patient requires hospitalization for atrial fibrillation, as outpatient with observation Diagnoses Atrial fibrillation with RVR I48.91
--- NOTE | 2024-12-05 17:32 | ED_ITS ---
HPI - Arrhythmia/Palpitations 2 General: Chief Complaint: Arrhythmia/Palpitations Stated Complaint: chest pain, a fib Time Seen by Provider: 12/05/24 16:07 Related Data Home Medications ?Medication ?Instructions ?Recorded ?Confirmed melatonin 5 mg tablet 5 mg PO BEDTIME 06/02/2303/24 omega-3 fatty acids 1,000 mg 1,000 mg PO QAM 06/02/23 12/05/24 capsule phenytoin sodium extended 100 mg 100 mg PO BID 4 12/05/24 capsule (Dilantin Extended) vit C 250 mg-vit E 90 mg-zinc 40 1 tab PO BID 09/06/23 12/05/24 mg-copper 1 [id number] capsule (PreserVision AREDS-2) aspirin 81 mg tablet,delayed 81 mg PO DAILY 01/01/24 0 12/05/24 release Previous Rx's ?Medication ?Instructions ?Recorded metoprolol tartrate 100 mg tablet 100 mg PO BID #60 ta bs 09/17/24 Allergies Allergy/AdvReac Type Severity Reaction Status Date / Time levetiracetam (From [facility]) Allergy ADR-Halluci Verified 12/05/24 16:06 [facility] ED 2 [facility]: Medical History (Updated 12/05/24 @ 17:32 by Brett Engel DO) Anxiety Atrial fibrillation with rapid ventricular response Atrial fibrillation, new onset Urethral stricture Lower urinary tract symptoms (LUTS) Surgical History Hx of tonsillectomy H/O arthroscopy of knee left History of carpal tunnel release left H/O rotator cuff surgery left Family History Father , at age 63 Cancer tongue Mother , at age 64 Lung disease Social History Smoking and tobacco/nicotine status: never used tobacco/nicotine Alcohol intake: current Alcohol intake frequency: 0-2 Drinks per Day Marital status: Current occupational status: retired Course 2 Vital Signs: Vital signs: Vital Signs Temperature 99.6 F 12/05/24 16:04 Pulse Rate 55 L 12/05/24 16:40 Respiratory Rate 16 12/05/24 16:04 Blood Pressure 87/57 12/05/24 16:40 Pulse Oximetry 96 12/05/24 16:40 Oxygen Delivery Me thod Room Air 12/05/24 16:04 MDM - Arrhythmia/Palpitations Lab Data 12/05/24 16:19 12/05/24 16:19 Radiology Impressions Chest X-Ray 12/05/24 16:00 IMPRESSION: No acute findings. Laboratory Results WBC 6.79 10^3/uL (3.29-11.43) 12/05/24 16:19 RBC 4.64 10^6/uL (3.85-5.65) 12/05/24 16:19 Hgb 15.30 g/dL (11.27-16.99) 12/05/24 16:19 Hct 45.6 % (37-53) 12/05/24 16:19 MCV 98.3 fl (82-101) 12/05/24 16:19 MCH 33.0 pg (27-33) 12/05/24 16:19 MCHC 33.6 g/dL (30-55) 12/05/24 16:19 RDW 13.2 % (12.1-15.1) 12/05/24 16:19 Plt Count 223 10^3/cmm (157-399) 12/05/24 16:19 MPV 8.9 fL (7.4-10.4) 12/05/24 16:19 Neut % (Auto) 47.1 % 12/05/24 16:19 Lymph % (Auto) 39.9 % 12/05/24 16:19 [place] % (Auto) 9.9 % 12/05/24 16:19 Eos % (Auto) 1.8 % 12/05/24 16:19 Baso % (Auto) 1.0 % 12/05/24 16:19 Neut # (Auto) 3.20 10^3/uL (1.8-7.7) 12/05/24 16:19 Lymph # (Auto) 2.7 10^3/uL (0.8-4.8) 12/05/24 16:19 [place] # (Auto) 0.7 10^3/uL (0.2-0.9) 12/05/24 16:19 Eos # (Auto) 0.1 10^3/uL (0.0-0.8) 12/05/24 16:19 Baso # (Auto) 0.1 10^3/uL (0.0-0.1) 12/05/24 16:19 Nucleated RBC % (auto) 0 % 12/05/24 16:19 Nucleated RBCs # 0.0 /100WBC 12/05/24 16:19 PT 13.60 SECONDS (12.1-14.9) 12/05/24 16:19 INR 0.97 (0.8-1.2) 12/05/24 16:19 Sodium 138 mmol/L (136-145) 12/05/24 16:19 Potassium 4.8 mmol/L (3.5-5.1) 12/05/24 16:19 Chloride 105 mmol/L (98-107) 12/05/24 16:19 Carbon Dioxide 23 mmol/L (22-29) 12/05/24 16:19 Anion Gap 14.8 (5-19) 12/05/24 16:19 BUN 16 mg/dL (8-23) 12/05/24 16:19 Creatinine 0.6 mg/dL (0.7-1.2) L 12/05/24 16:19 GFR Calculation Not Reportable 12/05/24 16:19 Glucose 130 mg/dL (65-115) H 12/05/24 16:19 Calculated Osmolality 289 mOsm/kg (285-295) 12/05/24 16:19 Calcium 9.2 mg/dL (8.5-10.5) 12/05/24 16:19 Total Bilirubin 0.2 mg/dL (0.15-1.2) 12/05/24 16:19 AST 25 U/L (0-40) 12/05/24 16:19 ALT 17 U/L (0-41) 12/05/24 16:19 Alkaline Phosphatase 135 U/L (40-130) H 12/05/24 16:19 Troponin T Baseline 11 ng/L (0-15) 12/05/24 16:19 Total Protein 6.8 g/dL (6.6-8.7) 12/05/24 16:19 Albumin 4.3 g/dL (3.5-5.2) 12/05/24 16:19 Globulin 2.5 g/dL (1.3-4.6) 12/05/24 16:19 Lipase 46 U/L (13-60) 12/05/24 16:19 Discharge Plan Discharge Patient Disposition: Placed in Observation Clinical Impression: Atrial fibrillation with RVR, Medication side effect, Bradycardia Coding Level of Care Code ED Chicken Vaccinator for More Mallory
[2024-12-05 17:51] LABS: Magnesium 2.4 mg/dL (1.7-2.3); Phosphorus 2.7 mg/dL (2.5-4.5)
--- NOTE | 2024-12-05 18:00 | ECG_ITS ---
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 Measurements Intervals [place] Rate: 71 P: 0 SC: 0 QRS: -2 QRSD: 86 T: 35 QT: 363 QTc: 397 Interpretive Statements ATRIAL FLUTTER LOW QRS VOLTAGE IN PRECORDIAL LEADS [QRS DEFLECTION < 1.0 mV IN CHEST LEADS] Compared to ECG 12/05/2024 16:02:39 Low QRS voltage now present T-wave abnormality no longer present Electronically Signed On 12-05-2024 22:26:37 CDT by Naga Celis M.D. [email or web address]
[2024-12-05 18:33] LABS: Troponin 5 2HR 10.17 ng/L (0-15)
[2024-12-05 18:35] LABS: Troponin 5 2HR Delta -0.83 ABS# (0-10)
[2024-12-05 19:13] LABS: Phenytoin Dilantin 8.7 ug/mL (10-20)
[2024-12-05 20:16] LABS: Thyroid Stimulating Hormone 1.44 uIU/mL (0.27-4.20)
[2024-12-05] MEDS: phenytoin ER 100 mg Capsule PO (20:43)
[2024-12-05] MEDS: pantoprazole 40 mg SDV IVP (20:43)
[2024-12-05] MEDS: enoxaparin 40 mg/0.4 mL Syringe SUBCUT (20:44)
[2024-12-05] MEDS: metoprolol tartrate 50 mg Tablet PO (20:44)
--- NOTE | 2024-12-05 20:53 | PM.CONSULT ---
Providers/Reason For Consult Consulting Physician/Specialty*: LUZ Turner MD/cardiology Reason for Consult*: Patient with atrial fibrillation with rapid ventricular rate/bradycardia and hypotension with IV metoprolol Requesting Physician: Dr. Strauss Attending Physician: Rodrigo Strauss MD Primary Care Provider: Darell Jackson MD History of Present Illness History of Present Illness Jesus Avilez is a 84 year old male with a history of atrial flutter/fibrillation?, he is presenting with the complaints of palpitation and weakness. This patient is diagnosed with atrial flutter?/Fibrillation approximately a year and a half ago. He has been taking metoprolol 100 mg p.o. twice daily for some time. He is scheduled to see an records management assistant next Thursday to consider ablation. According the patient, he may have had at least a dozen episodes of palpitations since the onset a year and a half ago. He had a minimal 3 hospital admissions for these so far. Usually these episodes last for 2 to 3 hours and then subsided spontaneously back to regular rhythm. Occasionally takes an extra dose of metoprolol 50 mg. This morning he started having the palpitations and he took an extra dose of metoprolol 50 mg. Apparently he continued to be in flutter/fibrillation with rapid ventricular rate. In the emergency room the heart rate was in the 140s. He was given a push of IV Cardizem. He developed episodes of sinus pauses followed by sinus bradycardia. For this reason, he is admitted to the hospital for further monitoring and management. Patient has no history for any coronary disease, myocardial infarction or congestive heart failure. Based on the history, he had a stress test done at the [facility] in [place] recently and was told to be okay. He also had echocardiogram which were told to be unremarkable. Details are not available. He has no history for hypertension, diabetes or dyslipidemia. He has a history of seizure disorder since childhood. However he has not had any seizure episode for the last 25 years or so. No history for any CVA or peripheral artery disease. No history for kidney disease, liver disease or bleeding disorders. He used to drink moderately. He quit a year and a half ago. No smoking abuse or any other substance abuse. No relative family history for cardiac arrhythmia or coronary artery disease. Review of Systems Narrative: CONSTITUTIONAL: No fever or chills. EYES: No blurring of vision or other visual disturbances lately. ENT: No hoarseness of voice, auditory disturbances or sore throat. CARDIOVASCULAR: As mentioned above. RESPIRATORY: No significant cough. GASTROINTESTINAL: No hematemesis or melena. GENITOURINARY: No dysuria or hematuria. INTEGUMENTARY: No skin rashes or history of skin cancer. NEURO: No transient ischemic attacks or amaurosis. PSYCHIATRIC: No history of psychosis or major depression. HEMATOLOGIC: No bleeding disorders or significant anemia. ENDOCRINE: No history of polyuria or polydipsia. MUSCULOSKELETAL: No recent joint pain or swelling. ALLERGY/IMMUNOLOGY: As mentioned above. Medications/Allergies Home Medications ?Medication ?Instructions ?Recorded ?Confirmed ?Last Taken ?Type melatonin 5 mg tablet 5 mg PO BEDTIME 06/02/23 12/05/24 09/16/24 History omega-3 fatty acids 1,000 mg 1,000 mg PO QAM 06/02/23 12/05/24 09/14/24 History capsule phenytoin sodium extended 100 mg 100 mg PO BID 09/06/23 12/05/24 09/14/24 History capsule (Dilantin Extended) vit C 250 mg-vit E 90 mg-zinc 40 1 tab PO BID 09/06/23 12/05/24 09/17/24 History mg-copper 1 [id number] capsule (PreserVision AREDS-2) aspirin 81 mg tablet,delayed 81 mg PO DAILY 01/01/24 12/05/24 09/17/24 History release metoprolol tartrate 100 mg tablet 100 mg PO BID #60 tabs 09/17/24 12/05/24 Unknown Rx Allergies Allergy/AdvReac Type Severity Reaction Status Date / Time levetiracetam (From [facility]) Allergy ADR-Halluci Verified 12/05/24 16:06 nating Current Medications Generic Name Dose Route Start Last Admin Trade Name Freq PRN Reason Stop Dose Admin Enoxaparin Sodium 40 mg 12/05/24 20:00 12/05/24 20:44 Enoxaparin 40 Mg/0.4 Ml Syringe SUBCUT 40 mg Q24H [place] Administration Metoprolol Tartrate 50 mg 12/05/24 21:00 12/05/24 20:44 Metoprolol Tartrate 50 Mg Tablet PO 12/05/24 21:01 50 mg ONCE ONE Administration Pantoprazole Sodium 40 mg 12/05/24 19:26 12/05/24 20:43 Pantoprazole 40 Mg Sdv IVP 40 mg Q24H [place] Administration Phenytoin 100 mg 12/05/24 19:26 12/05/24 20:43 Phenytoin Er 100 Mg Capsule PO 100 mg BID [place] Administration PFSH Acute PFSH: Medical History Anxiety Atrial fibrillation with rapid ventricular response Atrial fibrillation, new onset Urethral stricture Lower urinary tract symptoms (LUTS) Surgical History Hx of tonsillectomy H/O arthroscopy of knee left History of carpal tunnel release left H/O rotator cuff surgery left Family History Father , at age 63 Cancer tongue Mother , at age 64 Lung disease Social History Smoking and tobacco/nicotine status: never used tobacco/nicotine Alcohol intake: current Alcohol intake frequency: 0-2 Drinks per Day Marital status: Current occupational status: retired Vitals/I&O/Wt Last Vital Signs Temp 99.6 F 12/05/24 16:04 Pulse 75 12/05/24 20:00 Resp 24 H 12/05/24 20:00 BP 126/73 12/05/24 20:00 Pulse Ox 97 12/05/24 20:00 O2 Del Method Room Air 12/05/24 20:00 Weight last 48 hrs Weight 155 lb Weight 155 lb Physical Exam Narrative: GENERAL: The patient is alert and oriented times three. Not in any acute distress. HEENT: No significant pallor, icterus or lymphadenopathy.Oral cavity: There are no mucous membrane lesions. NECK: Trachea appears to be central. No masses noted. No JVD or thyromegaly appreciated. RESPIRATORY: Chest is symmetrical. No intercostals muscle retraction or any accessory muscle activation. There is no chest wall tenderness. Breath sounds are heard bilaterally. No rales or rhonchi heard. No evidence of any consolidation. BREASTS: Deferred. HEART: The heart sounds are normal. No S3 or S4. No significant murmurs. No pericardial rub ABDOMEN: No vessel pulsations or distention. No tenderness. No organomegaly appreciated. Bowel sounds are normally heard. : Deferred. RECTAL: Deferred. LYMPHATIC: No lymphadenopathy noted in the neck. EXTREMITIES: No edema or cyanosis. No clubbing. MUSCULOSKELETAL: No acute joint deformities or swelling SKIN: There are no significant rashes or ecchymosis NEUROPSYCHIATRIC: The patient is alert and oriented x3. Appears to be in a good mood. No tremors or rigidity noted. Data 12/05/24 16:19 12/05/24 16:19 Other Labs: Laboratory Last Values WBC 6.79 10^3/uL (3.29-11.43) 12/05/24 16:19 RBC 4.64 10^6/uL (3.85-5.65) 12/05/24 16:19 Hgb 15.30 g/dL (11.27-16.99) 12/05/24 16:19 Hct 45.6 % (37-53) 12/05/24 16:19 MCV 98.3 fl (82-101) 12/05/24 16:19 MCH 33.0 pg (27-33) 12/05/24 16:19 MCHC 33.6 g/dL (30-55) 12/05/24 16:19 RDW 13.2 % (12.1-15.1) 12/05/24 16:19 Plt Count 223 10^3/cmm (157-399) 12/05/24 16:19 MPV 8.9 fL (7.4-10.4) 12/05/24 16:19 Neut % (Auto) 47.1 % 12/05/24 16:19 Lymph % (Auto) 39.9 % 12/05/24 16:19 [place] % (Auto) 9.9 % 12/05/24 16:19 Eos % (Auto) 1.8 % 12/05/24 16:19 Baso % (Auto) 1.0 % 12/05/24 16:19 Neut # (Auto) 3.20 10^3/uL (1.8-7.7) 12/05/24 16:19 Lymph # (Auto) 2.7 10^3/uL (0.8-4.8) 12/05/24 16:19 [place] # (Auto) 0.7 10^3/uL (0.2-0.9) 12/05/24 16:19 Eos # (Auto) 0.1 10^3/uL (0.0-0.8) 12/05/24 16:19 Baso # (Auto) 0.1 10^3/uL (0.0-0.1) 12/05/24 16:19 Nucleated RBC % (auto) 0 % 12/05/24 16:19 Nucleated RBCs # 0.0 /100WBC 12/05/24 16:19 PT 13.60 SECONDS (12.1-14.9) 12/05/24 16:19 INR 0.97 (0.8-1.2) 12/05/24 16:19 Sodium 138 mmol/L (136-145) 12/05/24 16:19 Potassium 4.8 mmol/L (3.5-5.1) 12/05/24 16:19 Chloride 105 mmol/L (98-107) 12/05/24 16:19 Carbon Dioxide 23 mmol/L (22-29) 12/05/24 16:19 Anion Gap 14.8 (5-19) 12/05/24 16:19 BUN 16 mg/dL (8-23) 12/05/24 16:19 Creatinine 0.6 mg/dL (0.7-1.2) L 12/05/24 16:19 GFR Calculation Not Reportable 12/05/24 16:19 Glucose 130 mg/dL (65-115) H 12/05/24 16:19 Calculated Osmolality 289 mOsm/kg (285-295) 12/05/24 16:19 Calcium 9.2 mg/dL (8.5-10.5) 12/05/24 16:19 Phosphorus 2.7 mg/dL (2.5-4.5) 12/05/24 16:19 Magnesium 2.4 mg/dL (1.7-2.3) H 12/05/24 16:19 Total Bilirubin 0.2 mg/dL (0.15-1.2) 12/05/24 16:19 AST 25 U/L (0-40) 12/05/24 16:19 ALT 17 U/L (0-41) 12/05/24 16:19 Alkaline Phosphatase 135 U/L (40-130) H 12/05/24 16:19 Troponin T Baseline 11 ng/L (0-15) 12/05/24 16:19 Troponin T 120 Minute 10.17 ng/L (0-15) 12/05/24 18:06 Delta Troponin T -0.83 ABS# (0-10) L 12/05/24 18:06 Total Protein 6.8 g/dL (6.6-8.7) 12/05/24 16:19 Albumin 4.3 g/dL (3.5-5.2) 12/05/24 16:19 Globulin 2.5 g/dL (1.3-4.6) 12/05/24 16:19 Lipase 46 U/L (13-60) 12/05/24 16:19 TSH 1.44 uIU/mL (0.27-4.20) 12/05/24 18:06 Phenytoin 8.7 ug/mL (10-20) L 12/05/24 16:19 Other data: EKG shows atrial flutter with rapid ventricular rate of 144 bpm some nonspecific changes A&P Assessment and plan (1) Atrial flutter with rapid ventricular response: Patient is converted back into sinus rhythm at this time. Patient apparently has been having these episodes off and on for the last year and a half. Since he is scheduled for the EP studies on Thursday, I may hold off on any antiarrhythmic drugs at this time. I may contact the records management assistant in [place] regarding this. (2) Bradycardia: The heart rate is back in the normal range at this time. Most likely related to the IV Cardizem. (3) Chest discomfort: According the patient, he had a stress test done in [place] and was unremarkable. Since he has no evidence of myocardial injury or any ischemic EKG changes, I may hold off on any further evaluation at this time. (4) Nocturnal seizure: Patient is on a phenytoin sodium. This may be continued. Plan Patient will be closely monitored today. He may be kept on the current medication. I may contact the records management assistant in the morning to discuss about further management. Since he is remaining in sinus rhythm at this time and also for possible ablation next Thursday?, I may hold off on any antiarrhythmic drugs at this point Thank you for the opportunity to evaluate this patient and make these recommendations PDMP PDMP Reviewed: Not Reviewed Coding Level of Care Code 21402 Diagnoses Atrial flutter with rapid ventricular response I48.92 Bradycardia R00.1 Chest discomfort R07.89 Nocturnal seizure R56.9
[2024-12-05] MEDS: dilTIAZem 5 mg/mL SDV 5 mL IVP (21:20)
--- NOTE | 2024-12-05 21:27 | PC.NURSE ---
Got report from ER that patient was in sinus rhythm. Upon hooking patient up to telemetry, after arriving to unit, patient was back in afib rvr with rates in 120s. Patient was very anxious appearing and was having palpitations. Contacted Dr. Miles via [employer] with no response. Patient had concerns that we were not doing anything for his heart rate. He then pulled off all telemetry and VS monitoring, got dressed, and attempted to leave unit. Called Dr. Miles to explain situation. Given orders for a one time dose of Cardizem 5mg IVP, and additionally for Cardizem IV if the IVP didn't convert patient back into Sinus rhythm. Patient hooked back up to telemetry and VS monitoring. Cardizem IVP given and patient converted to Sinus rhythm with rates in the 60s. Patient resting comfortably in bed, bedside table and call light with in reach. No other needs were voiced by the patient at this time.
--- NOTE | 2024-12-05 22:10 | ECG_ITS ---
[facility] Date: 2024-12[facility]05 Pat Name: Jesus Avilez Department: Room: 112 Gender: Male Emr Trainer: : 1940 Requested By: Jorge Cao Order Number: [id number] Crawford MD: Naga Celis M.D. Measurements Intervals [place] Rate: 64 P: 60 DC: 226 QRS: -1 QRSD: 87 T: 54 QT: 375 QTc: 389 Interpretive Statements SINUS RHYTHM WITH FIRST DEGREE AV BLOCK LOW QRS VOLTAGE IN PRECORDIAL LEADS [QRS DEFLECTION < 1.0 mV IN CHEST LEADS] Compared to ECG 12/05/2024 17:58:08 First degree AV block now present Atrial flutter no longer present Electronically Signed On 12-05-2024 22:25:57 CDT by Naga Celis M.D. [email or web address]
[2024-12-05 22:29] LABS: Troponin 5 6HR 10.67 ng/L (0-15)
[2024-12-05 22:34] LABS: Troponin 5 6HR Delta -0.33 ng/L (0-12)
[2024-12-06] VITALS (9 sets, daily range): BP systolic 112–158; BP diastolic 62–87; PULSE 56–66; RESP 12–18; TEMP 36.3–36.9; O2SAT 95–99
[2024-12-06 01:16] LABS: Bacteria Urine None Seen /hpf; RBC Urine 0-2 /hpf (0-2); Squamous Epithelial Cell Urine 0-5 /hpf (0-5); WBC Urine 0-5 /hpf (0-5)
[2024-12-06 01:23] LABS: Add Urine Microscopic? YES; Bilirubin Urine Neg (Negative); Blood Urine Neg (Negative); Glucose Urine UA Norm (Normal); Ketones Urine Negative (Negative); Leukocyte Esterase Urine Negative (Negative); Nitrate Urine Negative (Negative); Protein Urine Neg (Negative); Urine Appearance Clear (CLEAR); Urine Color Yellow (Yellow); Urobilinogen Urine Neg (Negative); pH Urine 6.5 (5-7)
[2024-12-06 03:12] LABS: Basophils # 0.1 10^3/uL (0.0-0.1); Basophils % 0.6 %; Eosinophils # 0.2 10^3/uL (0.0-0.8); Eosinophils % 2.3 %; Hematocrit 41.7 % (37-53); Lymphocytes # 3.6 10^3/uL (0.8-4.8); Mean Corpuscular HGB Conc 33.1 g/dL (30-55); Mean Corpuscular Hemoglobin 32.9 pg (27-33); Mean Corpuscular Volume 99.3 fl (82-101); Mean Platelet Volume 8.9 fL (7.4-10.4); Monocytes # 0.8 10^3/uL (0.2-0.9); Monocytes % 9.4 %; Neutrophils # 3.39 10^3/uL (1.8-7.7); Neutrophils % 42.6 %; Nucleated Red Blood Cells % 0 %; Platelet Count 210 10^3/cmm (157-399); Red Cell Distribution Width 13.2 % (12.1-15.1); White Blood Count 7.96 10^3/uL (3.29-11.43)
[2024-12-06 03:30] LABS: Anion Gap 11.2 (5-19); Blood Urea Nitrogen 15 mg/dL (8-23); Calcium 8.3 mg/dL (8.5-10.5); Carbon Dioxide 25 mmol/L (22-29); Chloride 106 mmol/L (98-107); Creatinine Clr Calc Pharmacy 68.2535; Potassium 4.2 mmol/L (3.5-5.1); Sodium 138 mmol/L (136-145); Total Bilirubin 0.2 mg/dL (0.15-1.2); Total Protein 6.3 g/dL (6.6-8.7)
[2024-12-06 03:51] LABS: Alanine Aminotransferase 16 U/L (0-41); Albumin Level 3.8 g/dL (3.5-5.2); Alkaline Phosphatase 122 U/L (40-130); Aspartate Amino Transferase 20 U/L (0-40); Globulin 2.5 g/dL (1.3-4.6); Glucose 86 mg/dL (65-115); Osmolality Calculated 286 mOsm/kg (285-295)
--- NOTE | 2024-12-06 08:16 | PM.PN ---
Subjective Subjective: This patient had an episode of atrial flutter with rapid ventricular rate last night. He was given IV Cardizem and currently is converted to sinus rhythm. I also found out that this patient had a Watchman procedure last year since he could not take the oral anticoagulant along with phenytoin. I also had a discussion with the at the [facility] in [place], who is planning to do the ablation on next Thursday. Dr. Thapa is okay with starting this patient on some antiarrhythmic drug namely flecainide. Medications: Medication Review Details: Current Medications Acetaminophen (Acetaminophen 325 Mg Tablet) 650 mg PO Q6H PRN PRN Reason: Mild/Mod Pain Or Temp >/= 101 Aspirin (Aspirin 81 Mg Ec Tablet) 81 mg PO DAILY [place] Enoxaparin Sodium (Enoxaparin 40 Mg/0.4 Ml Syringe) 40 mg SUBCUT Q24H [facility] Last Admin: 12/05/24 20:44 Dose: 40 mg Diltiazem HCl 100 mg/ Sodium (Chloride) 100 mls @ 0 mls/hr IV .Q0M [facility]; Protocol Metoprolol Tartrate (Metoprolol Tartrate 50 Mg Tablet) 100 mg PO BID [place] Morphine Sulfate (Morphine 4 Mg/Ml Sdv 1 Ml) 2 mg IVP Q4H PRN PRN Reason: SEVERE PAIN Naloxone HCl (Naloxone 0.4 Mg/Ml Sdv) 0.1 mg IVP Q2M PRN PRN Reason: OPIATERV Ondansetron HCl (Ondansetron 2 Mg/Ml Sdv 2 Ml) 4 mg IVP Q8H PRN PRN Reason: vomiting, or N/V if npo Pantoprazole Sodium (Pantoprazole 40 Mg Sdv) 40 mg IVP Q24H [facility] Last Admin: 12/05/24 20:43 Dose: 40 mg Phenytoin (Phenytoin Er 100 Mg Capsule) 100 mg PO BID [place] Last Admin: 12/05/24 20:43 Dose: 100 mg Vitals/I&O/Wt Last Vital Signs Temp 97.4 F L 12/06/24 04:00 Pulse 64 12/06/24 06:00 Resp 12 12/06/24 04:00 BP 120/62 12/06/24 04:00 Pulse Ox 98 12/06/24 04:00 O2 Del Method Room Air 12/06/24 04:00 12/05/24 12/06/24 12/06/24 22:59 06:59 14:59 Intake Total 400 / 400 0 / 400 Output Total 0 / 0 0 / 0 Balance 400 / 400 0 / 400 Weight last 48 hrs Weight 161 lb 6.4 oz Weight 155 lb Weight 155 lb Physical Exam Narrative: GENERAL: The patient is alert and oriented times three. Not in any acute distress. HEENT: No significant pallor, icterus or lymphadenopathy.Oral cavity: There are no mucous membrane lesions. NECK: Trachea appears to be central. No masses noted. No JVD or thyromegaly appreciated. RESPIRATORY: Chest is symmetrical. No intercostals muscle retraction or any accessory muscle activation. There is no chest wall tenderness. Breath sounds are heard bilaterally. No rales or rhonchi heard. No evidence of any consolidation. BREASTS: Deferred. HEART: The heart sounds are normal. No S3 or S4. No significant murmurs. No pericardial rub ABDOMEN: No vessel pulsations or distention. No tenderness. No organomegaly appreciated. Bowel sounds are normally heard. : Deferred. RECTAL: Deferred. LYMPHATIC: No lymphadenopathy noted in the neck. EXTREMITIES: No edema or cyanosis. No clubbing. MUSCULOSKELETAL: No acute joint deformities or swelling SKIN: There are no significant rashes or ecchymosis NEUROPSYCHIATRIC: The patient is alert and oriented x3. Appears to be in a good mood. No tremors or rigidity noted. Data 12/06/24 02:30 12/06/24 02:30 Other Labs: Laboratory Last Values WBC 7.96 10^3/uL (3.29-11.43) 12/06/24 02:30 RBC 4.20 10^6/uL (3.85-5.65) 12/06/24 02:30 Hgb 13.80 g/dL (11.27-16.99) 12/06/24 02:30 Hct 41.7 % (37-53) 12/06/24 02:30 MCV 99.3 fl (82-101) 12/06/24 02:30 MCH 32.9 pg (27-33) 12/06/24 02:30 MCHC 33.1 g/dL (30-55) 12/06/24 02:30 RDW 13.2 % (12.1-15.1) 12/06/24 02:30 Plt Count 210 10^3/cmm (157-399) 12/06/24 02:30 MPV 8.9 fL (7.4-10.4) 12/06/24 02:30 Neut % (Auto) 42.6 % 12/06/24 02:30 Lymph % (Auto) 45.0 % 12/06/24 02:30 [place] % (Auto) 9.4 % 12/06/24 02:30 Eos % (Auto) 2.3 % 12/06/24 02:30 Baso % (Auto) 0.6 % 12/06/24 02:30 Neut # (Auto) 3.39 10^3/uL (1.8-7.7) 12/06/24 02:30 Lymph # (Auto) 3.6 10^3/uL (0.8-4.8) 12/06/24 02:30 [place] # (Auto) 0.8 10^3/uL (0.2-0.9) 12/06/24 02:30 Eos # (Auto) 0.2 10^3/uL (0.0-0.8) 12/06/24 02:30 Baso # (Auto) 0.1 10^3/uL (0.0-0.1) 12/06/24 02:30 Nucleated RBC % (auto) 0 % 12/06/24 02:30 Nucleated RBCs # 0.0 /100WBC 12/06/24 02:30 PT 13.60 SECONDS (12.1-14.9) 12/05/24 16:19 INR 0.97 (0.8-1.2) 12/05/24 16:19 Sodium 138 mmol/L (136-145) 12/06/24 02:30 Potassium 4.2 mmol/L (3.5-5.1) 12/06/24 02:30 Chloride 106 mmol/L (98-107) 12/06/24 02:30 Carbon Dioxide 25 mmol/L (22-29) 12/06/24 02:30 Anion Gap 11.2 (5-19) 12/06/24 02:30 BUN 15 mg/dL (8-23) 12/06/24 02:30 Creatinine 0.7 mg/dL (0.7-1.2) 12/06/24 02:30 GFR Calculation Not Reportable 12/06/24 02:30 Glucose 86 mg/dL (65-115) 12/06/24 02:30 Calculated Osmolality 286 mOsm/kg (285-295) 12/06/24 02:30 Calcium 8.3 mg/dL (8.5-10.5) L 12/06/24 02:30 Phosphorus 2.7 mg/dL (2.5-4.5) 12/05/24 16:19 Magnesium 2.4 mg/dL (1.7-2.3) H 12/05/24 16:19 Total Bilirubin 0.2 mg/dL (0.15-1.2) 12/06/24 02:30 AST 20 U/L (0-40) 12/06/24 02:30 ALT 16 U/L (0-41) 12/06/24 02:30 Alkaline Phosphatase 122 U/L (40-130) 12/06/24 02:30 Troponin T Baseline 11 ng/L (0-15) 12/05/24 16:19 Troponin T 120 Minute 10.17 ng/L (0-15) 12/05/24 18:06 Delta Troponin T -0.83 ABS# (0-10) L 12/05/24 18:06 Troponin T Hi Sens 6Hr 10.67 ng/L (0-15) 12/05/24 22:07 Troponin T Hi Sens 6Hr Delta -0.33 ng/L (0-12) L 12/05/24 22:07 Total Protein 6.3 g/dL (6.6-8.7) L 12/06/24 02:30 Albumin 3.8 g/dL (3.5-5.2) 12/06/24 02:30 Globulin 2.5 g/dL (1.3-4.6) 12/06/24 02:30 Lipase 46 U/L (13-60) 12/05/24 16:19 TSH 1.44 uIU/mL (0.27-4.20) 12/05/24 18:06 Urine Color Yellow (Yellow) 12/06/24 00:42 Urine Appearance Clear (CLEAR) 12/06/24 00:42 Urine pH 6.5 (5-7) 12/06/24 00:42 Ur Specific [place] 1.010 (1.005-1.030) 12/06/24 00:42 Urine Protein Neg (Negative) 12/06/24 00:42 Urine Glucose (UA) Norm (Normal) 12/06/24 00:42 Urine Ketones Negative (Negative) 12/06/24 00:42 Urine Blood Neg (Negative) 12/06/24 00:42 Urine Nitrate Negative (Negative) 12/06/24 00:42 Urine Bilirubin Neg (Negative) 12/06/24 00:42 Urine Urobilinogen Neg mg/dL (Negative) 12/06/24 00:42 Ur Leukocyte Esterase Negative (Negative) 12/06/24 00:42 Urine RBC 0-2 /hpf (0-2) 12/06/24 00:42 Urine WBC 0-5 /hpf (0-5) 12/06/24 00:42 Ur Squamous Epith Cells 0-5 /hpf (0-5) 12/06/24 00:42 Amorphous Sediment Not Reportable 12/06/24 00:42 Urine Bacteria None seen /hpf (NONE) 12/06/24 00:42 [place] Casts 0.40 /lpf 12/06/24 00:42 Phenytoin 8.7 ug/mL (10-20) L 12/05/24 16:19 A&P Assessment and plan (1) Atrial flutter with rapid ventricular response: Patient is converted back into sinus rhythm at this time. Patient apparently has been having these episodes off and on for the last year and a half. Since he is scheduled for the EP studies on Thursday, I may hold off on any antiarrhythmic drugs at this time. I may contact the pearl maker in [place] regarding this. I may go ahead start this patient on flecainide 50 mg p.o. twice daily. Possible side effects were discussed with the patient. (2) Bradycardia: The heart rate is back in the normal range at this time. Will continue on the other current medications at this time. (3) Chest discomfort: According the patient, he had a stress test done in [place] and was unremarkable. Since he has no evidence of myocardial injury or any ischemic EKG changes, I may hold off on any further evaluation at this time. (4) Nocturnal seizure: Patient is on a phenytoin sodium. This may be continued. Plan Patient will be watched closely today. If he continues to remain stable, may be discharged home this evening PDMP PDMP Reviewed: Not Reviewed Attestations Medical Necessity Statement*: Possible discharge home this evening Coding Level of Care Code Acute Code for Chg Fwd Diagnoses Atrial flutter with rapid ventricular response I48.92 Bradycardia R00.1 Chest discomfort R07.89 Nocturnal seizure R56.9
--- NOTE | 2024-12-06 09:15 | PC.NURSE ---
Spoke with Dr. Turner regarding patient's dose of 100mg of metoprolol and HR 62 currently. Order to go ahead with the 100mg dose of metoprolol. Wait one hour and give tambocor.
[2024-12-06] MEDS: aspirin 81 mg EC Tablet PO (09:42)
[2024-12-06] MEDS: phenytoin ER 100 mg Capsule PO ×2 (09:42→18:08)
[2024-12-06] MEDS: metoprolol tartrate 50 mg Tablet 100 MG PO ×2 (09:42→18:08)
[2024-12-06] MEDS: flecainide 100 mg Tablet 50 MG PO ×2 (10:34→20:23)
--- NOTE | 2024-12-06 15:41 | P.PN_ITS ---
Subjective 2 Subjective: Patient was seen this morning he is alert oriented x 3, following all commands, denies any chest pain, palpitations he tells me that last night he did develop a episode of A-fib with RVR requiring a Cardizem push, currently he is in normal sinus rhythm, heart rates in the 60s, Vitals/I&O/Wt Last Vital Signs Temp 98.5 F 12/06/24 12:00 Pulse 60 12/06/24 14:00 Resp 18 12/06/24 12:00 BP 112/66 12/06/24 12:00 Pulse Ox 95 12/06/24 12:00 O2 Del Method Room Air 12/06/24 12:00 12/06/24 12/06/24 12/06/24 06:59 14:59 22:59 Intake Total 0 / 400 360 / 360 Output Total 0 / 0 Balance 0 / 400 360 / 360 Weight last 48 hrs Weight 73.21 kg Weight 70.307 kg Weight 70.307 kg Physical Exam 2 Const: COMMON NORMALS: no acute distress and patient oriented x3 Resp: COMMON NORMALS: normal respiratory effort, No retractions, No use of accessory muscles and clear to auscultation bilaterally AUSCULTATION: clear to auscultation bilaterally Cardio: COMMON NORMALS: regular rate, regular rhythm, S1 normal heart sound present and S2 normal heart sound present RATE: regular rate RHYTHM: r egular rhythm HEART SOUNDS: S1 normal heart sound present and S2 normal heart sound present GI: COMMON NORMALS: Normal to inspection, nondistended, normoactive bowel sounds present and non-tender Extremity: COMMON NORMALS: no pedal edema Neuro: COMMON NORMALS: patient oriented x3 Psych: COMMON NORMALS: mental status grossly normal Data 12/06/24 02:30 12/06/24 02:30 A&P Assessment and plan (1) Atrial fibrillation with RVR: Plan Atrial fibrillation with rapid ventricular response -History of Watchman device -Plans on EP ablation in the next few weeks - Currently in normal sinus rhythm, with MAP at 65 -Telemetry monitoring - Continue metoprolol 100 twice daily -Status post Cardizem push last night for A-fib with RVR -Flecainide will be started today 50 every 12 hours - Monitor heart rate, monitor blood pressure - Cardiology consulted - Full code - Lovenox for DVT prophylaxis PDMP PDMP Reviewed: Not Reviewed Attestations 2 Medical Necessity Statement*: Patient requires hospitalization for A-fib with RVR, requiring inpatient admission Diagnoses Atrial fibrillation with RVR I48.91
[2024-12-06] MEDS: pantoprazole 40 mg SDV IVP (20:23)
[2024-12-06] MEDS: enoxaparin 40 mg/0.4 mL Syringe SUBCUT (20:23)
[2024-12-07] VITALS: BP 113/65; PULSE 54; RESP 14; TEMP 36.3; O2SAT 94
[2024-12-07 04:00] VITALS: BP 128/76; PULSE 58; RESP 12; TEMP 36.3; O2SAT 100
[2024-12-07 04:13] LABS: Basophils # 0.1 10^3/uL (0.0-0.1); Basophils % 0.8 %; Eosinophils # 0.2 10^3/uL (0.0-0.8); Eosinophils % 2.2 %; Hematocrit 43.2 % (37-53); Lymphocytes # 3.3 10^3/uL (0.8-4.8); Lymphocytes % 42.6 %; Mean Corpuscular HGB Conc 33.1 g/dL (30-55); Mean Corpuscular Hemoglobin 32.4 pg (27-33); Mean Platelet Volume 8.8 fL (7.4-10.4); Monocytes # 0.7 10^3/uL (0.2-0.9); Monocytes % 9.4 %; Neutrophils # 3.41 10^3/uL (1.8-7.7); Neutrophils % 44.7 %; Nucleated Red Blood Cells % 0 %; Platelet Count 198 10^3/cmm (157-399); Red Blood Count 4.41 10^6/uL (3.85-5.65); White Blood Count 7.63 10^3/uL (3.29-11.43)
[2024-12-07 04:41] LABS: Alanine Aminotransferase 14 U/L (0-41); Alkaline Phosphatase 121 U/L (40-130); Anion Gap 14.2 (5-19); Aspartate Amino Transferase 20 U/L (0-40); Blood Urea Nitrogen 14 mg/dL (8-23); Calcium 8.6 mg/dL (8.5-10.5); Carbon Dioxide 24 mmol/L (22-29); Chloride 103 mmol/L (98-107); Creatinine Clr Calc Pharmacy 69.2125; Globulin 2.4 g/dL (1.3-4.6); Glucose 89 mg/dL (65-115); Osmolality Calculated 284 mOsm/kg (285-295); Potassium 4.2 mmol/L (3.5-5.1); Sodium 137 mmol/L (136-145); Total Bilirubin 0.3 mg/dL (0.15-1.2); Total Protein 6.4 g/dL (6.6-8.7)
[2024-12-07 05:43] VITALS: PULSE 56
[2024-12-07 08:00] VITALS: BP 137/76; PULSE 61; RESP 12; TEMP 36.3; O2SAT 97
[2024-12-07] MEDS: phenytoin ER 100 mg Capsule PO (08:13)
[2024-12-07] MEDS: aspirin 81 mg EC Tablet PO (08:13)
[2024-12-07] MEDS: flecainide 100 mg Tablet 50 MG PO (08:13)
[2024-12-07] MEDS: metoprolol tartrate 50 mg Tablet 100 MG PO (08:13)
--- NOTE | 2024-12-07 09:25 | P.PN_ITS ---
Subjective 2 Subjective: Patient is feeling okay. He is staying in sinus rhythm. Heart rates in the 50s and 60s. Tolerating the flecainide well. EKG from this morning shows a normal QRS duration. Medications: Medication Review Details: Current Medications Acetaminophen (Acetaminophen 325 Mg Tablet) 650 mg PO Q6H PRN PRN Reason: Mild/Mod Pain Or Temp >/= 101 Aspirin (Aspirin 81 Mg Ec Tablet) 81 mg PO DAILY [facility] Last Admin: 12/07/24 08:13 Dose: 81 mg Enoxaparin Sodium (Enoxaparin 40 Mg/0.4 Ml Syringe) 40 mg SUBCUT Q24H [facility] Last Admin: 12/06/24 20:23 Dose: 40 mg Flecainide Acetate (Flecainide 100 Mg Tablet) 50 mg PO Q12H [facility] Last Admin: 12/07/24 08:13 Dose: 50 mg Metoprolol Tartrate (Metoprolol Tartrate 50 Mg Tablet) 100 mg PO BID [facility] Last Admin: 12/07/24 08:13 Dose: 100 mg Morphine Sulfate (Morphine 4 Mg/Ml Sdv 1 Ml) 2 mg IVP Q4H PRN PRN Reason: SEVERE PAIN Naloxone HCl (Naloxone 0.4 Mg/Ml Sdv) 0.1 mg IVP Q2M PRN PRN Reason: OPIATERV Ondansetron HCl (Ondansetron 2 Mg/Ml Sdv 2 Ml) 4 mg IVP Q8H PRN PRN Reason: vomiting, or N/V if npo Pantoprazole Sodium (Pantoprazole 40 Mg Sdv) 40 mg IVP Q24H [facility] Last Admin: 12/06/24 20:23 Dose: 40 mg Phenytoin (Phenytoin Er 100 Mg Capsule) 100 mg PO BID [facility] Last Admin: 12/07/24 08:13 Dose: 100 mg Vitals/I&O/Wt Last Vital Signs Temp 97.3 F L 12/07/24 08:00 Pulse 61 12/07/24 08:00 Resp 12 12/07/24 08:00 BP 137/76 12/07/24 08:00 Pulse Ox 97 12/07/24 08:00 O2 Del Method Room Air 12/07/24 08:00 12/06/24 12/07/24 12/07/24 22:59 06:59 14:59 Intake Total 540 / 900 200 / 1100 Balance 540 / 900 200 / 1100 Weight last 48 hrs Weight 160 lb 4 oz Weight 161 lb 6.4 oz Weight 155 lb Weight 155 lb Physical Exam 2 Narrative: GENERAL: The patient is alert and oriented times three. Not in any acute distress. HEENT: No significant pallor, icterus or lymphadenopathy.Oral cavity: There are no mucous membrane lesions. NECK: Trachea appears to be central. No masses noted. No JVD or thyromegaly appreciated. RESPIRATORY: Chest is symmetrical. No intercostals muscle retraction or any accessory muscle activation. There is no chest wall tenderness. Breath sounds are heard bilaterally. No rales or rhonchi heard. No evidence of any consolidation. BREASTS: Deferred. HEART: The heart sounds are normal. No S3 or S4. No significant murmurs. No pericardial rub ABDOMEN: No vessel pulsations or distention. No tenderness. No organomegaly appreciated. Bowel sounds are normally heard. : Deferred. RECTAL: Deferred. LYMPHATIC: No lymphadenopathy noted in the neck. EXTREMITIES: No edema or cyanosis. No clubbing. MUSCULOSKELETAL: No acute joint deformities or swelling SKIN: There are no significant rashes or ecchymosis NEUROPSYCHIATRIC: The patient is alert and oriented x3. Appears to be in a good mood. No tremors or rigidity noted. Data 12/07/24 03:53 12/07/24 03:53 Other Labs: Laboratory Last Values WBC 7.63 10^3/uL (3.29-11.43) 12/07/24 03:53 RBC 4.41 10^6/uL (3.85-5.65) 12/07/24 03:53 Hgb 14.30 g/dL (11.27-16.99) 12/07/24 03:53 Hct 43.2 % (37-53) 12/07/24 03:53 MCV 98.0 fl (82-101) 12/07/24 03:53 MCH 32.4 pg (27-33) 12/07/24 03:53 MCHC 33.1 g/dL (30-55) 12/07/24 03:53 RDW 13.0 % (12.1-15.1) 12/07/24 03:53 Plt Count 198 10^3/cmm (157-399) 12/07/24 03:53 MPV 8.8 fL (7.4-10.4) 12/07/24 03:53 Neut % (Auto) 44.7 % 12/07/24 03:53 Lymph % (Auto) 42.6 % 12/07/24 03:53 [place] % (Auto) 9.4 % 12/07/24 03:53 Eos % (Auto) 2.2 % 12/07/24 03:53 Baso % (Auto) 0.8 % 12/07/24 03:53 Neut # (Auto) 3.41 10^3/uL (1.8-7.7) 12/07/24 03:53 Lymph # (Auto) 3.3 10^3/uL (0.8-4.8) 12/07/24 03:53 [place] # (Auto) 0.7 10^3/uL (0.2-0.9) 12/07/24 03:53 Eos # (Auto) 0.2 10^3/uL (0.0-0.8) 12/07/24 03:53 Baso # (Auto) 0.1 10^3/uL (0.0-0.1) 12/07/24 03:53 Nucleated RBC % (auto) 0 % 12/07/24 03:53 Nucleated RBCs # 0.0 /100WBC 12/07/24 03:53 PT 13.60 SECONDS (12.1-14.9) 12/05/24 16:19 INR 0.97 (0.8-1.2) 12/05/24 16:19 APTT 33.0 SECONDS (23.9-36.7) 12/07/24 03:53 Sodium 137 mmol/L (136-145) 12/07/24 03:53 Potassium 4.2 mmol/L (3.5-5.1) 12/07/24 03:53 Chloride 103 mmol/L (98-107) 12/07/24 03:53 Carbon Dioxide 24 mmol/L (22-29) 12/07/24 03:53 Anion Gap 14.2 (5-19) 12/07/24 03:53 BUN 14 mg/dL (8-23) 12/07/24 03:53 Creatinine 0.8 mg/dL (0.7-1.2) 12/07/24 03:53 GFR Calculation Not Reportable 12/07/24 03:53 Glucose 89 mg/dL (65-115) 12/07/24 03:53 Calculated Osmolality 284 mOsm/kg (285-295) L 12/07/24 03:53 Calcium 8.6 mg/dL (8.5-10.5) 12/07/24 03:53 Phosphorus 2.7 mg/dL (2.5-4.5) 12/05/24 16:19 Magnesium 2.4 mg/dL (1.7-2.3) H 12/05/24 16:19 Total Bilirubin 0.3 mg/dL (0.15-1.2) 12/07/24 03:53 AST 20 U/L (0-40) 12/07/24 03:53 ALT 14 U/L (0-41) 12/07/24 03:53 Alkaline Phosphatase 121 U/L (40-130) 12/07/24 03:53 Troponin T Baseline 11 ng/L (0-15) 12/05/24 16:19 Troponin T 120 Minute 10.17 ng/L (0-15) 12/05/24 18:06 Delta Troponin T -0.83 ABS# (0-10) L 12/05/24 18:06 Troponin T Hi Sens 6Hr 10.67 ng/L (0-15) 12/05/24 22:07 Troponin T Hi Sens 6Hr Delta -0.33 ng/L (0-12) L 12/05/24 22:07 Total Protein 6.4 g/dL (6.6-8.7) L 12/07/24 03:53 Albumin 4.0 g/dL (3.5-5.2) 12/07/24 03:53 Globulin 2.4 g/dL (1.3-4.6) 12/07/24 03:53 Lipase 46 U/L (13-60) 12/05/24 16:19 TSH 1.44 uIU/mL (0.27-4.20) 12/05/24 18:06 Urine Color Yellow (Yellow) 12/06/24 00:42 Urine Appearance Clear (CLEAR) 12/06/24 00:42 Urine pH 6.5 (5-7) 12/06/24 00:42 Ur Specific [place] 1.010 (1.005-1.030) 12/06/24 00:42 Urine Protein Neg (Negative) 12/06/24 00:42 Urine Glucose (UA) Norm (Normal) 12/06/24 00:42 Urine Ketones Negative (Negative) 12/06/24 00:42 Urine Blood Neg (Negative) 12/06/24 00:42 Urine Nitrate Negative (Negative) 12/06/24 00:42 Urine Bilirubin Neg (Negative) 12/06/24 00:42 Urine Urobilinogen Neg mg/dL (Negative) 12/06/24 00:42 Ur Leukocyte Esterase Negative (Negative) 12/06/24 00:42 Urine RBC 0-2 /hpf (0-2) 12/06/24 00:42 Urine WBC 0-5 /hpf (0-5) 12/06/24 00:42 Ur Squamous Epith Cells 0-5 /hpf (0-5) 12/06/24 00:42 Amorphous Sediment Not Reportable 12/06/24 00:42 Urine Bacteria None seen /hpf (NONE) 12/06/24 00:42 Hyaline Casts 0.40 /lpf 12/06/24 00:42 Phenytoin 8.7 ug/mL (10-20) L 12/05/24 16:19 A&P Assessment and plan (1) Atrial flutter with rapid ventricular response: Patient is converted back into sinus rhythm at this time. Patient apparently has been having these episodes off and on for the last year and a half. Since he is scheduled for the EP studies on Thursday, I may hold off on any antiarrhythmic drugs at this time. I may contact the security assistant in [place] regarding this. I may go ahead start this patient on flecainide 50 mg p.o. twice daily. Possible side effects were discussed with the patient. Patient is tolerating his medication well (2) Bradycardia: The heart rate stays in the 50s and 60s throughout his hospital admission. Will continue on the current medication. (3) Chest discomfort: According the patient, he had a stress test done in [place] and was unremarkable. Since he has no evidence of myocardial injury or any ischemic EKG changes, I may hold off on any further evaluation at this time. (4) Nocturnal seizure: Patient is on a phenytoin sodium. This may be continued. Plan Since the patient is vomiting on telemetry with no complaints and no recurrence of flutter/fibrillation, he may be discharged home today on the current dose of the medications. Advised to keep the appointment with the security assistant at the [facility] in or next Thursday PDMP PDMP Reviewed: Not Reviewed Attestations 2 Medical Necessity Statement*: Disposition as per the primary Coding Level of Care Code Acute Code for Chg Fwd Diagnoses Atrial flutter with rapid ventricular response I48.92 Bradycardia R00.1 Chest discomfort R07.89 Nocturnal seizure R56.9
--- NOTE | 2024-12-07 09:25 | PC.CHAP ---
Pastoral Care Encounter/Spiritual Assessment Type of Contact [] Declined cigarette and filter chief inspector visit [] Patient/Family/Request visit [] Outpatient visit [] Follow-up visit [] Physician referral [] Code/Alert [x] Routine visit [] Staff referral [] Actively dying [] Patient sleeping [] Family support [] [] Out of room [] Palliative care [] [] Receiving care in room [] Pre-surgical visit [] Trauma [] Long length of stay [] ICU visit [] Other: Relational/Emotional Strength [x] Patient feels connected with others/family/visitors/staff [] Distress [] Loneliness/isolation [] Abandonment Spirituality of Patient [x] Person of Marycarmen [] Attends Episcopalian of their Marycarmen [x] Believes in Prayer [] Reads Bible or Presybeterian materials [] There are Spiritual issues to be addressed [employer] Advisor Interventions [x] Prayer [x] Active listening [] Non-anxious presence [x] Spiritual/emotional support [] Crisis/trauma care [] Spiritual counseling [] Bereavement support [] Provided bereavement packet [] Provided Bible/devotional materials [] Provided toy/stuffed animal, coloring book to patient or family member [] Provided Communion [] Anointing/[place] [] Salvation [x] Completed spiritual assessment [] Other: Impact on Illness or Injury [] Angry [] Fearful [] Anxious [] Often cries [] Exhaustion [] Unable to work [] Unable to attend christian [] Unable to walk/stand [] Unable to read [] Unable to drive [] Unable to eat/drink [] Unable to sleep [] Unable to be with family [] Patient intubated [] Other: Summary Time spent with patient 5 min
[2024-12-07 09:52] VITALS: PULSE 68
--- NOTE | 2024-12-07 09:52 | ECG_ITS ---
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 Measurements Intervals [place] Rate: 55 P: 77 CO: 228 QRS: 5 QRSD: 104 T: 58 QT: 402 QTc: 385 Interpretive Statements SINUS BRADYCARDIA WITH FIRST DEGREE AV BLOCK LOW QRS VOLTAGE IN PRECORDIAL LEADS [QRS DEFLECTION < 1.0 mV IN CHEST LEADS] Compared to ECG 12/05/2024 22:10:23 Sinus rhythm no longer present Electronically Signed On 12-07-2024 15:58:56 CDT by Jens Turner M.D. [email or web address]
--- NOTE | 2024-12-07 10:41 | PM.DCS ---
Discharge Providers Date of Admission: 12/06/24 09:40 Date of Discharge: December 07, 2024 Attending Provider at Admission: Rodrigo Strauss MD Attending Provider at Discharge: Rodrigo Strauss MD Primary Care Provider: Darell Jackson MD Diagnoses at Discharge Discharge Diagnosis (1) Atrial flutter with rapid ventricular response: Status: Acute (2) Bradycardia: Status: Acute (3) Chest discomfort: Status: Acute (4) Nocturnal seizure: Status: Acute Reason for Visit Reason for Visit: chest pain, a fib Hospital Course Hospital Course Jesus Avilez is a 84 year old male with a past medical history of atrial fibrillation, status post Watchman procedure, with plans on ablation at [facility] by EP in the next few weeks, who presents to [facility] due to chest palpitations. Patient reports chest palpitations this morning, he took an extra 50 of his metoprolol, total of 150 mg this morning but continued to have palpitations so he presented to emergency room for evaluation. Currently alert oriented x 3, following all commands, MAP is greater than 65 heart rates in the 60s, normal sinus rhythm, he is alert awake, following all commands, has no pain complaints, no chest pain, shortness of breath, abdominal pain, no fevers, no chills Patient was admitted to [facility] for A-fib with RVR, history of Watchman device, plans on EP ablation on next Thursday, cardiology was consulted, kept on metoprolol 100 twice daily, was placed on flecainide 50 twice daily, patient remains in normal sinus rhythm, ambulating without significant symptomatology, discharged with close follow-up with cardiology as at [facility], follow-up with primary care Physical Exam Const: COMMON NORMALS: no acute distress and patient oriented x3 Resp: COMMON NORMALS: normal respiratory effort, No retractions, No use of accessory muscles and clear to auscultation bilaterally AUSCULTATION: clear to auscultation bilaterally Cardio: COMMON NORMALS: regular rate, regular rhythm, S1 normal heart sound present and S2 normal heart sound present RATE: regular rate RHYTHM: regular rhythm HEART SOUNDS: S1 normal heart sound present and S2 normal heart sound present GI: COMMON NORMALS: Normal to inspection, nondistended, normoactive bowel sounds present, Soft to palpation and non-tender PALPATION: Yes Soft to palpation Extremity: COMMON NORMALS: no pedal edema Neuro: COMMON NORMALS: patient oriented x3 Psych: COMMON NORMALS: mental status grossly normal Discharge Data Studies Completed and Pending Completed Studies During Hospitalization Category Date Time Status XR chest 1V portable [id number] Stat Exams 12/05/24 16:00 Completed Pending at discharge Category Date Time Status Complete Blood Count w/Auto AM LABS Lab 12/08/24 04:00 Ordered Comprehensive Metabolic Panel AM LABS Lab 12/08/24 04:00 Ordered Radiology Impressions Chest X-Ray 12/05/24 16:00 IMPRESSION: No acute findings. Laboratory Results WBC 7.63 10^3/uL (3.29-11.43) 12/07/24 03:53 RBC 4.41 10^6/uL (3.85-5.65) 12/07/24 03:53 Hgb 14.30 g/dL (11.27-16.99) 12/07/24 03:53 Hct 43.2 % (37-53) 12/07/24 03:53 MCV 98.0 fl (82-101) 12/07/24 03:53 MCH 32.4 pg (27-33) 12/07/24 03:53 MCHC 33.1 g/dL (30-55) 12/07/24 03:53 RDW 13.0 % (12.1-15.1) 12/07/24 03:53 Plt Count 198 10^3/cmm (157-399) 12/07/24 03:53 MPV 8.8 fL (7.4-10.4) 12/07/24 03:53 Neut % (Auto) 44.7 % 12/07/24 03:53 Lymph % (Auto) 42.6 % 12/07/24 03:53 [facility] % (Auto) 9.4 % 12/07/24 03:53 Eos % (Auto) 2.2 % 12/07/24 03:53 Baso % (Auto) 0.8 % 12/07/24 03:53 Neut # (Auto) 3.41 10^3/uL (1.8-7.7) 12/07/24 03:53 Lymph # (Auto) 3.3 10^3/uL (0.8-4.8) 12/07/24 03:53 [facility] # (Auto) 0.7 10^3/uL (0.2-0.9) 12/07/24 03:53 Eos # (Auto) 0.2 10^3/uL (0.0-0.8) 12/07/24 03:53 Baso # (Auto) 0.1 10^3/uL (0.0-0.1) 12/07/24 03:53 Nucleated RBC % (auto) 0 % 12/07/24 03:53 Nucleated RBCs # 0.0 /100WBC 12/07/24 03:53 PT 13.60 SECONDS (12.1-14.9) 12/05/24 16:19 INR 0.97 (0.8-1.2) 12/05/24 16:19 APTT 33.0 SECONDS (23.9-36.7) 12/07/24 03:53 Sodium 137 mmol/L (136-145) 12/07/24 03:53 Potassium 4.2 mmol/L (3.5-5.1) 12/07/24 03:53 Chloride 103 mmol/L (98-107) 12/07/24 03:53 Carbon Dioxide 24 mmol/L (22-29) 12/07/24 03:53 Anion Gap 14.2 (5-19) 12/07/24 03:53 BUN 14 mg/dL (8-23) 12/07/24 03:53 Creatinine 0.8 mg/dL (0.7-1.2) 12/07/24 03:53 GFR Calculation Not Reportable 12/07/24 03:53 Glucose 89 mg/dL (65-115) 12/07/24 03:53 Calculated Osmolality 284 mOsm/kg (285-295) L 12/07/24 03:53 Calcium 8.6 mg/dL (8.5-10.5) 12/07/24 03:53 Phosphorus 2.7 mg/dL (2.5-4.5) 12/05/24 16:19 Magnesium 2.4 mg/dL (1.7-2.3) H 12/05/24 16:19 Total Bilirubin 0.3 mg/dL (0.15-1.2) 12/07/24 03:53 AST 20 U/L (0-40) 12/07/24 03:53 ALT 14 U/L (0-41) 12/07/24 03:53 Alkaline Phosphatase 121 U/L (40-130) 12/07/24 03:53 Troponin T Baseline 11 ng/L (0-15) 12/05/24 16:19 Troponin T 120 Minute 10.17 ng/L (0-15) 12/05/24 18:06 Delta Troponin T -0.83 ABS# (0-10) L 12/05/24 18:06 Troponin T Hi Sens 6Hr 10.67 ng/L (0-15) 12/05/24 22:07 Troponin T Hi Sens 6Hr Delta -0.33 ng/L (0-12) L 12/05/24 22:07 Total Protein 6.4 g/dL (6.6-8.7) L 12/07/24 03:53 Albumin 4.0 g/dL (3.5-5.2) 12/07/24 03:53 Globulin 2.4 g/dL (1.3-4.6) 12/07/24 03:53 Lipase 46 U/L (13-60) 12/05/24 16:19 TSH 1.44 uIU/mL (0.27-4.20) 12/05/24 18:06 Urine Color Yellow (Yellow) 12/06/24 00:42 Urine Appearance Clear (CLEAR) 12/06/24 00:42 Urine pH 6.5 (5-7) 12/06/24 00:42 Ur Specific [place] 1.010 (1.005-1.030) 12/06/24 00:42 Urine Protein Neg (Negative) 12/06/24 00:42 Urine Glucose (UA) Norm (Normal) 12/06/24 00:42 Urine Ketones Negative (Negative) 12/06/24 00:42 Urine Blood Neg (Negative) 12/06/24 00:42 Urine Nitrate Negative (Negative) 12/06/24 00:42 Urine Bilirubin Neg (Negative) 12/06/24 00:42 Urine Urobilinogen Neg mg/dL (Negative) 12/06/24 00:42 Ur Leukocyte Esterase Negative (Negative) 12/06/24 00:42 Urine RBC 0-2 /hpf (0-2) 12/06/24 00:42 Urine WBC 0-5 /hpf (0-5) 12/06/24 00:42 Ur Squamous Epith Cells 0-5 /hpf (0-5) 12/06/24 00:42 Amorphous Sediment Not Reportable 12/06/24 00:42 Urine Bacteria None seen /hpf (NONE) 12/06/24 00:42 Hyaline Casts 0.40 /lpf 12/06/24 00:42 Phenytoin 8.7 ug/mL (10-20) L 12/05/24 16:19 Vitals Last Vital Signs Temp 97.3 F L 12/07/24 08:00 Pulse 61 12/07/24 08:00 Resp 12 12/07/24 08:00 BP 137/76 12/07/24 08:00 Pulse Ox 97 12/07/24 08:00 O2 Del Method Room Air 12/07/24 08:00 Discharge Plan Discharge Patient Disposition: Home Condition: Stable Prescriptions: New flecainide 100 mg Tablet 50 mg PO Q12H 30 Days Qty: 30 0RF Continued melatonin 5 mg Tablet 5 mg PO BEDTIME omega-3 fatty acids 1,000 mg Capsule 1,000 mg PO QAM phenytoin sodium extended [Dilantin Extended] 100 mg capsule 100 mg PO BID PreserVision AREDS-2 250-90-40-1 mg Capsule 1 tab PO BID aspirin [Aspir-81] 81 mg Tablet,Delayed Release (Dr/Ec) 81 mg PO DAILY metoprolol tartrate 100 mg tablet 100 mg PO BID Qty: 60 0RF Discharge Orders: Discharge Order (Routine); Ordered 12/07/24 Ordered By: Rodrigo Strauss Referrals: Darell Jackson MD [Primary Care Provider] - 12/12/24 10:30 am Discharge Diet: Cardiac Discharge Activity: Resume usual activity Patient Instructions: Atrial Fibrillation, Bradycardia, Flecainide (By mouth), Chest Pain (DC), Opioid Safety Discharge Attestations Time Spent in Discharge Care*: greater than 30 min Quality Metrics Clinical Quality Measures [ No reported AMI, CVA or VTE this stay] Coding Level of Care Code 81936 Total time (in minutes) for Discharge: 45 Diagnoses Atrial flutter with rapid ventricular response I48.92 Bradycardia R00.1 Chest discomfort R07.89 Nocturnal seizure R56.9
[2024-12-07 10:59] VITALS: BP 137/76; PULSE 61; RESP 16; TEMP 36.3; O2SAT 97
== END 2024-12-07 10:58 | disposition home or self-care (01) | DRG 309 ==
LOC: ER 17:32 → CSU 17:43
PROVIDERS: Emergency Medicine; Internal Medicine Cardiovascular Disease; Admitting Provider Family Medicine; Emergency Provider Family Medicine; PCP Family Medicine; Visit Provider Family Medicine
DX: I48.91 Unspecified atrial fibrillation (principal); G40.89 Other seizures; R00.1 Bradycardia, unspecified; I95.9 Hypotension, unspecified; Z79.82 Long term (current) use of aspirin
CPT/HCPCS: 36415; 71045; 80053; 80185; 81001; 83690; 83735; 84100; 84443; 84484; 85025; 85610; 85730; 93005; 94664; 96365; 96372; 96375; 96376; 99285; A9270; G0378; J1650; J2470; J3490; J9999

== ENCOUNTER → 2024-12-20 07:55 | Outpatient (BNVA) | payer MEDICARE, SELFPAY | PROVIDERS: PCP Family Medicine; Visit Provider Podiatrist Foot & Ankle Surgery | DX: L60.0 Ingrowing nail (principal) | CPT/HCPCS: 99213 ==

== ENCOUNTER 2025-01-08 01:07 | Emergency (ER) | payer MEDICARE, SELFPAY ==
--- NOTE | 2025-01-08 01:12 | ECG_ITS ---
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 Measurements Intervals [place] Rate: 108 P: 0 IN: 0 QRS: 0 QRSD: 87 T: 85 QT: 313 QTc: 420 Interpretive Statements ATRIAL FIBRILLATION WITH RAPID VENTRICULAR RESPONSE NONSPECIFIC ST & T-WAVE ABNORMALITY ABNORMAL RHYTHM ECG Compared to ECG 12/07/2024 09:54:52 T-wave abnormality now present Sinus bradycardia no longer present First degree AV block no longer present Electronically Signed On 01-08-2025 21:10:08 CDT by Jens Turner M.D. [email or web address]
[2025-01-08 01:22] VITALS: BP 116/86; PULSE 118; RESP 16; TEMP 36.6; O2SAT 98; BMI 23.5
--- NOTE | 2025-01-08 01:41 | XRR_ITS ---
PROCEDURE INFORMATION: Exam: XR Chest Exam date and time: 01/08/2025 1:43 AM Age: 84 years old Clinical indication: Prior surgery; Surgery date: 1-6 months; Surgery type: Node ablation one month ago. Watchman; C/O palpitations. History of afib. TECHNIQUE: Imaging protocol: Radiologic exam of the chest. Views: 1 view. COMPARISON: CR XR chest 1V portable [id number] 12/05/2024 4:11 PM FINDINGS: Tubes, catheters and devices: Watchman device. Lungs: No consolidation. Pleural spaces: No pleural effusion. No pneumothorax. Heart/Mediastinum: No cardiomegaly. 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 XR/XR chest 1V portable [id number] IMPRESSION: No acute chest findings.
--- NOTE | 2025-01-08 01:44 | W.ED.ARRPALP ---
HPI - Arrhythmia/Palpitations General: Chief Complaint: Arrhythmia/Palpitations Stated Complaint: CP flutters post surg on hear Time Seen by Provider: 01/08/25 01:29 History of Present Illness: 84-year-old male gentleman with a history of atrial fibrillation. He had an ablation procedure at [facility] in [place] 1 month ago. He was told that he may go in and out of atrial fibrillation for up to 3 months afterward. He presents in atrial fibrillation with rapid ventricular rate. He is asymptomatic. He checked his heart rate and noticed that it was elevated and irregular. No chest pain. No shortness of breath. No symptoms. No leg swelling. Related Data Home Medications ?Medication ?Instructions ?Recorded ?Confirmed melatonin 5 mg tablet 5 mg PO BEDTIME 06/02/23 12/20/24 omega-3 fatty acids 1,000 mg 1,000 mg PO QAM 06/02/23 12/20/24 capsule phenytoin sodium extended 100 mg 100 mg PO BID 09/06/23 12/20/24 capsule (Dilantin Extended) vit C 250 mg-vit E 90 mg-zinc 40 1 tab PO BID 09/06/23 12/20/24 mg-copper 1 [id number] capsule (PreserVision AREDS-2) aspirin 81 mg tablet,delayed 81 mg PO DAILY 01/01/24 12/20/24 release Previous Rx's ?Medication ?Instructions ?Recorded metoprolol tartrate 100 mg tablet 100 mg PO BID #60 tabs 09/17/24 Allergies Allergy/AdvReac Type Severity Reaction Status Date / Time levetiracetam (From [facility]) Allergy ADR-Halluci Verified 12/20/24 07:58 venancio [facility] ED PFS: Medical History Anxiety Atrial fibrillation with rapid ventricular response Atrial fibrillation, new onset Urethral stricture Lower urinary tract symptoms (LUTS) Surgical History Hx of tonsillectomy H/O arthroscopy of knee left History of carpal tunnel release left H/O rotator cuff surgery left Family History Father , at age 63 Cancer tongue Mother , at age 64 Lung disease Social History Smoking and tobacco/nicotine status: never used tobacco/nicotine Alcohol intake: current Alcohol intake frequency: 0-2 Drinks per Day Marital status: Current occupational status: retired Physical Exam Const: COMMON NORMALS: no acute distress GENERAL APPEARANCE: cooperative; not ill appearing and not frail appearing HENMT: COMMON NORMALS: normocephalic, atraumatic and Normal external nose present HEAD & SCALP: normocephalic and atraumatic FACE & SINUS: normal facial exam and face symmetric NOSE: Normal external nose present Eye: COMMON NORMALS: Equal, round and reactive pupils present and EOMs intact bilaterally PUPIL: Yes Equal, round and reactive pupils present Neck/C-Spine: GENERAL: Yes trachea midline Chest: CHEST: Yes Symmetrical chest wall rise Resp: COMMON NORMALS: normal respiratory effort, No retractions, No use of accessory muscles and clear to auscultation bilaterally AUSCULTATION: clear to auscultation bilaterally Cardio: RATE: tachycardic RHYTHM: abnormal rhythm irregularly irregular GI: COMMON NORMALS: Normal to inspection, nondistended, normoactive bowel sounds present Extremity: COMMON NORMALS: no pedal edema Neuro: BEVERLEY COMA SCALE: document GCS findings Beverley coma scale eye opening: Spontaneous Darby coma scale verbal response: Orientated Beverley coma scale motor response: Obey commands Beverley coma scale total score: 15 SENSORY EXAM: Yes extremities (intact) Psych: COMMON NORMALS: speech normal SPEECH: Yes normal speech Skin: COMMON NORMALS: no rashes or lesions noted GENERAL SKIN EXAM: no rashes or lesions noted Course Vital Signs: Vital signs: Vital Signs Temperature 98 F 01/08/25 01:22 Pulse Rate 65 01/08/25 03:01 Respiratory Rate 16 01/08/25 03:01 Blood Pressure 109/70 01/08/25 03:01 Pulse Oximetry 97 01/08/25 03:01 Oxygen Delivery Me thod Room Air 01/08/25 03:00 MDM - Arrhythmia/Palpitations Medical Decision Making This patient has been seen multiple times in the past for irregular and elevated heart rates. He seems to be quite concerned when he is in atrial fibrillation. He is normotensive. Currently heart rate is below 100. He is given 10 mg of diltiazem IV. Heart rate is maintained at 65 to 70 post diltiazem. And he continues to be asymptomatic. His vitals are stable otherwise. Laboratory shows normal CMP, CBC, TSH, BNP. Chest X-ray is non acute. He will be discharged to outpatient follow up. Lab Data 01/08/25 01:28 01/08/25 01:28 Radiology Impressions Chest X-Ray 01/08/25 01:41 IMPRESSION: No acute chest findings. Laboratory Results WBC 7.87 10^3/uL (3.29-11.43) 01/08/25 01:28 RBC 4.55 10^6/uL (3.85-5.65) 01/08/25 01:28 Hgb 14.90 g/dL (11.27-16.99) 01/08/25 01: Hct 43.8 % (37-53) 01/08/25 01: MCV 96.3 fl (82-101) 01/08/25 01:28 MCH 32.7 pg (27-33) 01/08/25 01: MCHC 34.0 g/dL (30-55) 01/08/25 01:28 RDW 13.1 % (12.1-15.1) 01/08/25 01:28 Plt Count 201 10^3/cmm (157-399) 01/08/25 01:28 MPV 8.9 fL (7.4-10.4) 01/08/25 01:28 Neut % (Auto) 45.9 % 01/08/25 01:28 Lymph % (Auto) 40.8 % 01/08/25 01:28 Traverse % (Auto) 9.8 % 01/08/25 01:28 Eos % (Auto) 2.3 % 01/08/25 01:28 Baso % (Auto) 0.9 % 01/08/25 01:28 Neut # (Auto) 3.62 10^3/uL (1.8-7.7) 01/08/25 01:28 Lymph # (Auto) 3.2 10^3/uL (0.8-4.8) 01/08/25 01:28 Traverse # (Auto) 0.8 10^3/uL (0.2-0.9) 01/08/25 01:28 Eos # (Auto) 0.2 10^3/uL (0.0-0.8) 01/08/25 01:28 Baso # (Auto) 0.1 10^3/uL (0.0-0.1) 01/08/25 01: Nucleated RBC % (auto) 0 % 01/08/25 01: Nucleated RBCs # 0.0 /100WBC 01/08/25 01: PT 13.10 SECONDS (12.1-14.9) 01/08/25 01: INR 0.93 (0.8-1.2) 01/08/25 01: APTT 27.4 SECONDS (23.9-36.7) 01/08/25 01:28 Sodium 139 mmol/L (136-145) 01/08/25 01: Potassium 3.9 mmol/L (3.5-5.1) 01/08/25 01: Chloride 103 mmol/L (98-107) 01/08/25 01: Carbon Dioxide 27 mmol/L (22-29) 01/08/25: Anion Gap 12.9 (5-19) 01/08/25 01:28 BUN 16 mg/dL (8-23) 01/08/25 01: Creatinine 0.7 mg/dL (0.7-1.2) 01/08/25 01: GFR Calculation Not Reportable 01/08/25 01: Glucose 108 mg/dL (65-115) 01/08/25 01:28 Calculated Osmolality 290 mOsm/kg (285-295) 01/08/25 01:28 Calcium 9.3 mg/dL (8.5-10.5) 01/08/25 01:28 Magnesium 2.3 mg/dL (1.7-2.3) 01/08/25 01:28 Total Bilirubin 0.2 mg/dL (0.15-1.2) 01/08/25 01:28 AST 27 U/L (0-40) 01/08/25: ALT 18 U/L (0-41) 01/08/25 01:28 Alkaline Phosphatase 146 U/L (40-130) H 01/08/25 01:28 NT-Pro-B Natriuret Pep 439 pg/mL (0-450) 01/08/25 01:28 Total Protein 7.5 g/dL (6.6-8.7) 01/08/25 01:28 Albumin 4.4 g/dL (3.5-5.2) 01/08/25 01:28 Globulin 3.1 g/dL (1.3-4.6) 01/08/25 01:28 TSH 2.59 uIU/mL (0.27-4.20) 01/08/25 01:28 All radiology interpretation(s) finalized by discharge Discharge Plan Discharge Patient Disposition: Home Clinical Impression: Atrial fibrillation Qualifiers: Atrial fibrillation type: unspecified Qualified Code(s): I48.91 - Unspecified atrial fibrillation Condition: Stable Prescriptions: No Action melatonin 5 mg Tablet 5 mg PO BEDTIME omega-3 fatty acids 1,000 mg Capsule 1,000 mg PO QAM phenytoin sodium extended [Dilantin Extended] 100 mg capsule 100 mg PO BID PreserVision AREDS-2 250-90-40-1 mg Capsule 1 tab PO BID aspirin 81 mg Tablet,Delayed Release (Dr/Ec) 81 mg PO DAILY metoprolol tartrate 100 mg tablet 100 mg PO BID Qty: 60 0RF Discharge Orders: Discharge ED (Routine); Ordered 01/08/25 Ordered By: Robbie Somers Referrals: Darell Jackson MD [Primary Care Provider, Family Practice] - 1-3 days Patient Instructions: A-fib (Atrial Fibrillation) (ED), Opioid Safety, Pain Management Print Language: Kiswahili Coding Level of Care Code 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
[2025-01-08 01:49] LABS: Basophils # 0.1 10^3/uL (0.0-0.1); Basophils % 0.9 %; Eosinophils # 0.2 10^3/uL (0.0-0.8); Eosinophils % 2.3 %; Hematocrit 43.8 % (37-53); Lymphocytes # 3.2 10^3/uL (0.8-4.8); Lymphocytes % 40.8 %; Mean Corpuscular Hemoglobin 32.7 pg (27-33); Mean Corpuscular Volume 96.3 fl (82-101); Mean Platelet Volume 8.9 fL (7.4-10.4); Monocytes # 0.8 10^3/uL (0.2-0.9); Monocytes % 9.8 %; Neutrophils # 3.62 10^3/uL (1.8-7.7); Neutrophils % 45.9 %; Nucleated Red Blood Cells % 0 %; Platelet Count 201 10^3/cmm (157-399); Red Blood Count 4.55 10^6/uL (3.85-5.65); Red Cell Distribution Width 13.1 % (12.1-15.1); White Blood Count 7.87 10^3/uL (3.29-11.43)
[2025-01-08 01:56] LABS: INR 0.93 (0.8-1.2)
[2025-01-08 01:57] LABS: Partial Thromboplastin Time 27.4 SECONDS (23.9-36.7)
[2025-01-08] MEDS: dilTIAZem 5 mg/mL SDV 5 mL 10 MG IVP (01:58)
[2025-01-08 02:17] LABS: Alanine Aminotransferase 18 U/L (0-41); Albumin Level 4.4 g/dL (3.5-5.2); Alkaline Phosphatase 146 U/L (40-130); Anion Gap 12.9 (5-19); Aspartate Amino Transferase 27 U/L (0-40); Blood Urea Nitrogen 16 mg/dL (8-23); Calcium 9.3 mg/dL (8.5-10.5); Carbon Dioxide 27 mmol/L (22-29); Chloride 103 mmol/L (98-107); Globulin 3.1 g/dL (1.3-4.6); Glucose 108 mg/dL (65-115); Magnesium 2.3 mg/dL (1.7-2.3); NT Pro B Type Natriuretic Pept 439 pg/mL (0-450); Osmolality Calculated 290 mOsm/kg (285-295); Potassium 3.9 mmol/L (3.5-5.1); Sodium 139 mmol/L (136-145); Thyroid Stimulating Hormone 2.59 uIU/mL (0.27-4.20); Total Bilirubin 0.2 mg/dL (0.15-1.2); Total Protein 7.5 g/dL (6.6-8.7)
[2025-01-08 03:00] VITALS: BP 93/67; PULSE 73; RESP 16; O2SAT 96
[2025-01-08 03:01] VITALS: BP 109/70; PULSE 65; RESP 16; O2SAT 97
== END 2025-01-08 03:07 | disposition home or self-care (01) ==
PROVIDERS: Emergency Provider Emergency Medicine; PCP Family Medicine
DX: I48.91 Unspecified atrial fibrillation (principal); Z79.82 Long term (current) use of aspirin; Z79.84 Long term (current) use of oral hypoglycemic drugs
CPT/HCPCS: 71045; 80053; 83735; 83880; 84443; 85025; 85610; 85730; 93005; 96374; 99285; J3490

== ENCOUNTER 2025-01-10 00:54 | Emergency (ER) | payer MEDICARE, SELFPAY ==
[2025-01-10 01:01] VITALS: BP 126/71; PULSE 105; RESP 18; TEMP 36.6; O2SAT 96; BMI 24.3
--- NOTE | 2025-01-10 01:04 | ECG_ITS ---
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
[2025-01-10 01:20] LABS: Basophils # 0.1 10^3/uL (0.0-0.1); Basophils % 0.9 %; Eosinophils # 0.2 10^3/uL (0.0-0.8); Eosinophils % 2.3 %; Hematocrit 44.3 % (37-53); Lymphocytes # 2.8 10^3/uL (0.8-4.8); Lymphocytes % 38.1 %; Mean Corpuscular HGB Conc 33.6 g/dL (30-55); Mean Corpuscular Hemoglobin 32.4 pg (27-33); Mean Corpuscular Volume 96.3 fl (82-101); Mean Platelet Volume 8.7 fL (7.4-10.4); Monocytes # 0.7 10^3/uL (0.2-0.9); Monocytes % 9.7 %; Neutrophils # 3.61 10^3/uL (1.8-7.7); Neutrophils % 48.7 %; Nucleated Red Blood Cells % 0 %; Platelet Count 198 10^3/cmm (157-399); White Blood Count 7.41 10^3/uL (3.29-11.43)
[2025-01-10 01:21] VITALS: BP 126/71; PULSE 88; RESP 16; O2SAT 94
--- NOTE | 2025-01-10 01:23 | W.ED.CHESTPA ---
HPI - Chest Pain General: Chief Complaint: Chest Pain Stated Complaint: A Fib Time Seen by Provider: 01/10/25 01:06 History of Present Illness: Patient is a well-appearing 84-year-old male seen for tachycardia. He states that he feels palpitations in his chest and he checked his heart rate and found it to be 130 at home. He underwent ablation for atrial fibrillation on December 12 2024 and since then has had several bouts of atrial fibrillation. He was told by the senior care manager that this may occur for the next 3 months. Currently takes metoprolol and aspirin. He was seen in the emergency department 2 days ago for the same. He states that when he gets atrial fibrillation he comes emergency department they give him an infusion and he gets better. He denies lightheadedness, chest pressure, nausea, vomiting, recent sickness or fever and has no other acute complaints. He has been taking 100 mg metoprolol twice daily and took an extra 50 mg when he noticed he was tachycardic at his senior care manager recommendation. Related Data Home Medications ?Medication ?Instructions ?Recorded ?Confirmed melatonin 5 mg tablet 5 mg PO BEDTIME 06/02/23 12/20/24 omega-3 fatty acids 1,000 mg 1,000 mg PO QAM 06/02/23 12/20/24 capsule phenytoin sodium extended 100 mg 100 mg PO BID 09/06/23 12/20/24 capsule (Dilantin Extended) vit C 250 mg-vit E 90 mg-zinc 40 1 tab PO BID 09/06/23 12/20/24 mg-copper 1 [id number]-tddmeh capsule (PreserVision AREDS-2) aspirin 81 mg tablet,delayed 81 mg PO DAILY 01/01/24 12/20/24 release Previous Rx's ?Medication ?Instructions ?Recorded metoprolol tartrate 100 mg tablet 100 mg PO BID #60 tabs 09/17/24 Allergies Allergy/AdvReac Type Severity Reaction Status Date / Time levetiracetam (From [facility]) Allergy ADR-Halluci Verified 01/10/25 01:07 venancio [facility] ED [facility]: Medical History Anxiety Atrial fibrillation with rapid ventricular response Atrial fibrillation, new onset Urethral stricture Lower urinary tract symptoms (LUTS) Surgical History Hx of tonsillectomy H/O arthroscopy of knee left History of carpal tunnel release left H/O rotator cuff surgery left Family History Father , at age 63 Cancer tongue Mother , at age 64 Lung disease Social History Smoking and tobacco/nicotine status: never used tobacco/nicotine Alcohol intake: current Alcohol intake frequency: 0-2 Drinks per Day Marital status: Current occupational status: retired Physical Exam Const: COMMON NORMALS: no acute distress, patient oriented x3 and alert HENMT: COMMON NORMALS: normocephalic and atraumatic HEAD & SCALP: normocephalic and atraumatic Eye: COMMON NORMALS: Equal, round and reactive pupils present, EOMs intact bilaterally and no scleral icterus PUPIL: Yes Equal, round and reactive pupils present Resp: COMMON NORMALS: normal respiratory effort and No retractions Cardio: COMMON NORMALS: No murmurs present (Cardio) (Irregularly irregular rhythm, tachycardic) GI: COMMON NORMALS: Normal to inspection, nondistended, normoactive bowel sounds present, Soft to palpation and non-tender PALPATION: Yes Soft to palpation Neuro: COMMON NORMALS: patient oriented x3 SENSORIUM/ORIENTATION: Yes alert Skin: COMMON NORMALS: no rashes or lesions noted GENERAL SKIN EXAM: no rashes or lesions noted Course Vital Signs: Vital signs: Vital Signs Temperature 97.9 F 01/10/25 01:01 Pulse Rate 52 L 01/10/25 04:45 Respiratory Rate 17 01/10/25 04:45 Blood Pressure 118/65 01/10/25 04:45 Pulse Oximetry 97 01/10/25 04:45 Oxygen Delivery Me thod Room Air 01/10/25 03:34 MDM - Chest Pain Medical Decision Making In summary, patient is a well-appearing 84-year-old male with history of atrial fibrillation who underwent ablation roughly 1 month ago but has had multiple bouts of atrial fibrillation with RVR since then. He continues to take his metoprolol as prescribed. After receiving a dose of metoprolol and Cardizem heart rate is now stable in the 60s though he does remain in atrial fibrillation. He will be discharged in stable and improved condition with instructions to follow-up closely with his senior care manager to see if they would like to augment his medication regimen. Troponin is stable and EKG does not show ST segment changes and I do not suspect any other emergent process warranting further with workup at this time. Lab Data 01/10/25 01:14 01/10/25 01:14 Laboratory Results WBC 7.41 10^3/uL (3.29-11.43) 01/10/25 01:14 RBC 4.60 10^6/uL (3.85-5.65) 01/10/25 01:14 Hgb 14.90 g/dL (11.27-16.99) 01/10/25 01:14 Hct 44.3 % (37-53) 01/10/25 01:14 MCV 96.3 fl (82-101) 01/10/25 01:14 MCH 32.4 pg (27-33) 01/10/25 01:14 MCHC 33.6 g/dL (30-55) 01/10/25 01:14 RDW 13.0 % (12.1-15.1) 01/10/25 01:14 Plt Count 198 10^3/cmm (157-399) 01/10/25 01:14 MPV 8.7 fL (7.4-10.4) 01/10/25 01:14 Neut % (Auto) 48.7 % 01/10/25 01:14 Lymph % (Auto) 38.1 % 01/10/25 01:14 Wallace % (Auto) 9.7 % 01/10/25 01:14 Eos % (Auto) 2.3 % 01/10/25 01:14 Baso % (Auto) 0.9 % 01/10/25 01:14 Neut # (Auto) 3.61 10^3/uL (1.8-7.7) 01/10/25 01:14 Lymph # (Auto) 2.8 10^3/uL (0.8-4.8) 01/10/25 01:14 Wallace # (Auto) 0.7 10^3/uL (0.2-0.9) 01/10/25 01:14 Eos # (Auto) 0.2 10^3/uL (0.0-0.8) 01/10/25 01:14 Baso # (Auto) 0.1 10^3/uL (0.0-0.1) 01/10/25 01:14 Nucleated RBC % (auto) 0 % 01/10/25 01:14 Nucleated RBCs # 0.0 /100WBC 01/10/25 01:14 Sodium 137 mmol/L (136-145) 01/10/25 01:14 Potassium 4.3 mmol/L (3.5-5.1) 01/10/25 01:14 Chloride 101 mmol/L (98-107) 01/10/25 01:14 Carbon Dioxide 25 mmol/L (22-29) 01/10/25 01:14 Anion Gap 15.3 (5-19) 01/10/25 01:14 BUN 17 mg/dL (8-23) 01/10/25 01:14 Creatinine 0.9 mg/dL (0.7-1.2) 01/10/25 01:14 GFR Calculation Not Reportable 01/10/25 01:14 Glucose 109 mg/dL (65-115) 01/10/25 01:14 Calculated Osmolality 286 mOsm/kg (285-295) 01/10/25 01:14 Calcium 9.4 mg/dL (8.5-10.5) 01/10/25 01:14 Total Bilirubin 0.2 mg/dL (0.15-1.2) 01/10/25 01:14 AST 26 U/L (0-40) 01/10/25 01:14 ALT 18 U/L (0-41) 01/10/25 01:14 Alkaline Phosphatase 142 U/L (40-130) H 01/10/25 01:14 Troponin T Baseline 11 ng/L (0-15) 01/10/25 01:14 Total Protein 7.1 g/dL (6.6-8.7) 01/10/25 01:14 Albumin 4.5 g/dL (3.5-5.2) 01/10/25 01:14 Globulin 2.6 g/dL (1.3-4.6) 01/10/25 01:14 All radiology interpretation(s) finalized by discharge EKG Data EKG 1: Interpretation: Time?0104?atrial fibrillation with RVR, rate of 105, no ST segment elevation or depression, no T wave inversions, intervals within normal limits. QTc = 357. Discharge Plan Discharge Patient Disposition: Home Clinical Impression: Atrial fibrillation Condition: Stable Prescriptions: No Action melatonin 5 mg Tablet 5 mg PO BEDTIME omega-3 fatty acids 1,000 mg Capsule 1,000 mg PO QAM phenytoin sodium extended [Dilantin Extended] 100 mg capsule 100 mg PO BID PreserVision AREDS-2 250-90-40-1 mg Capsule 1 tab PO BID aspirin 81 mg Tablet,Delayed Release (Dr/Ec) 81 mg PO DAILY metoprolol tartrate 100 mg tablet 100 mg PO BID Qty: 60 0RF Discharge Orders: Discharge ED (Routine); Ordered 01/10/25 Ordered By: Rodrick Ruelas Referrals: Darell Jackson MD [Primary Care Provider, [facility]] Discharge Diet: Usual diet Discharge Activity: Increase activity as tolerated Patient Instructions: Atrial Fibrillation Activity Restrictions/Additional Instructions: Please call your senior care manager who performed your ablation to see whether they recommend changes in your medication to avoid fast heart rate in the future. They may want you to start a calcium channel joanna in addition to your beta-joanna you are currently taking. Print Language: Georgian Coding Level of Care Code ED Jigsawyer for More Mallory
[2025-01-10 01:35] VITALS: BP 98/60; PULSE 84; RESP 16; O2SAT 96
[2025-01-10 01:38] LABS: Troponin(5th) Baseline 11 ng/L (0-15)
[2025-01-10] MEDS: sodium chloride 0.9% 1,000 ML 999 ML IV (01:39)
[2025-01-10 01:41] LABS: Alanine Aminotransferase 18 U/L (0-41); Albumin Level 4.5 g/dL (3.5-5.2); Alkaline Phosphatase 142 U/L (40-130); Anion Gap 15.3 (5-19); Aspartate Amino Transferase 26 U/L (0-40); Blood Urea Nitrogen 17 mg/dL (8-23); Calcium 9.4 mg/dL (8.5-10.5); Carbon Dioxide 25 mmol/L (22-29); Chloride 101 mmol/L (98-107); Creatinine Clr Calc Pharmacy 60.6698; Globulin 2.6 g/dL (1.3-4.6); Glucose 109 mg/dL (65-115); Osmolality Calculated 286 mOsm/kg (285-295); Potassium 4.3 mmol/L (3.5-5.1); Sodium 137 mmol/L (136-145); Total Bilirubin 0.2 mg/dL (0.15-1.2); Total Protein 7.1 g/dL (6.6-8.7)
[2025-01-10 02:45] VITALS: BP 136/83; PULSE 81; RESP 13; O2SAT 97
[2025-01-10] MEDS: metoprolol tartrate 1 mg/1 mL SDV 5 mL 5 MG IVP (03:14)
[2025-01-10 03:34] VITALS: BP 151/105; PULSE 118; RESP 15; O2SAT 99
[2025-01-10] MEDS: dilTIAZem 5 mg/mL SDV 5 mL 10 MG IVP (03:36)
[2025-01-10 04:45] VITALS: BP 118/65; PULSE 52; RESP 17; O2SAT 97
== END 2025-01-10 04:47 | disposition home or self-care (01) ==
PROVIDERS: Emergency Provider Student in an Organized Health Care Education/Training Program; PCP Family Medicine
DX: I48.91 Unspecified atrial fibrillation (principal); Z79.82 Long term (current) use of aspirin
CPT/HCPCS: 80053; 84484; 85025; 93005; 96361; 96374; 96375; 99284; J3490; J7030

== ENCOUNTER 2025-01-11 16:31 | Emergency (ER) | payer MEDICARE, SELFPAY ==
--- NOTE | 2025-01-11 16:32 | ECG_ITS ---
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
--- NOTE | 2025-01-11 16:32 | XRR_ITS ---
PROCEDURE INFORMATION: Exam: XR Chest Exam date and time: 01/11/2025 4:55 PM Age: 84 years old Clinical indication: Pain; Chest pressure; Prior surgery; Surgery date: 6+ months; Surgery type: Watchman; Additional info: Cp TECHNIQUE: Imaging protocol: Radiologic exam of the chest. Views: 1 view. COMPARISON: CR (CHEST, ) 01/08/2025 1:43 AM FINDINGS: Lungs: Unremarkable. No consolidation. Pleural spaces: Unremarkable. No pleural effusion. No pneumothorax. Heart/Mediastinum: Unremarkable. No cardiomegaly. Bones/joints: Unremarkable. XR/XR chest 1V portable 18050 IMPRESSION: No acute findings.
[2025-01-11 16:47] VITALS: BP 117/81; PULSE 135; RESP 18; TEMP 36.2; O2SAT 97
--- NOTE | 2025-01-11 16:49 | ED_ITS ---
HPI - Arrhythmia/Palpitations 2 General: Chief Complaint: Arrhythmia/Palpitations Stated Complaint: high heart rate, chest tightness Time Seen by Provider: 01/11/25 16:45 Source: patient Mode of arrival: ambulatory Limitations: no limitations History of Present Illness: 84-year-old male has history of A-fib ayon s been seen multiple times A-fib RVR he had an ablation a month ago was seen last night for tachycardia states his heart started started racing again his heart rate when he initially arrived was in the 130s he denies any shortness of breath denies any severe pain. Associated symptoms: Deny nausea or vomiting Related Data Home Medications ?Medication ?Instructions ?Recorded ?Confirmed melatonin 5 mg tablet 5 mg PO BEDTIME 06/02/23 omega-3 fatty acids 1,000 mg 1,000 mg PO QAM 06/02/23 12/20/24 capsule phenytoin sodium extended 100 mg 100 mg PO BID 4 12/20/24 capsule (Dilantin Extended) vit C 250 mg-vit E 90 mg-zinc 40 1 tab PO BID 09/06/23 12/20/24 mg-copper 1 [id number]-gprqah capsule (PreserVision AREDS-2) aspirin 81 mg tablet,delayed 81 mg PO DAILY 01/01/24 0 12/20/24 release Previous Rx's ?Medication ?Instructions ?Recorded metoprolol tartrate 100 mg tablet 100 mg PO BID #60 ta bs 09/17/24 Allergies Allergy/AdvReac Type Severity Reaction Status Date / Time levetiracetam (From [facility] [place]) Allergy ADR-Halluci Verified 01/10/25 01:07 venancio Review of Systems 2 Const: Denies: fever(s), chills, body aches or change in appetite ENMT: Denies: throat pain or dental pain Card: Reports: palpitations and irregular heart rhythm Resp: Denies: dyspnea GI: Denies: abdominal pain, nausea, vomiting or diarrhea Musc: Denies: neck pain or back pain Skin/Breast: Denies: rash Neuro: Denies: headache(s) PFSH ED 2 PFSH: Medical History Anxiety Atrial fibrillation with rapid ventricular response Atrial fibrillation, new onset Urethral stricture Lower urinary tract symptoms (LUTS) Surgical History Hx of tonsillectomy H/O arthroscopy of knee left History of carpal tunnel release left H/O rotator cuff surgery left Family History Father , at age 63 Cancer tongue Mother , at age 64 Lung disease Social History Smoking and tobacco/nicotine status: never used tobacco/nicotine Alcohol intake: current Alcohol intake frequency: 0-2 Drinks per Day Marital status: Current occupational status: retired Physical Exam 2 Const: COMMON NORMALS: no acute distress, patient oriented x3 and healthy appearing HENMT: COMMON NORMALS: normocephalic and atraumatic HEAD & SCALP: n ormocephalic and atraumatic Neck/C-Spine: COMMON NORMALS: full ROM and supple Chest: COMMONS NORMALS: normal inspection of the chest Resp: COMMON NORMALS: normal respiratory effort, No retractions, No use of accessory muscles and clear to auscultation bilaterally AUSCULTATION: clear to auscultation bilaterally Cardio: COMMON NORMALS: regular rate, regular rhythm and No murmurs present (Cardio) RATE: regular rate RHYTHM: regular rhythm GI: COMMON NORMALS: Normal to inspection, nondistended, normoactive bowel sounds present, Soft to palpation, non-tender and no masses PALPATION: Yes Soft to palpation Extremity: COMMON NORMALS: normal to inspection and full ROM Neuro: COMMON NORMALS: patient oriented x3, moves all extremities and no focal motor deficits Psych: COMMON NORMALS: mental status grossly normal, Normal thought process present and cooperative THOUGHT PROCESS: Normal thought process present Skin: COMMON NORMALS: no rashes or lesions noted and no wounds GENERAL SKIN EXAM: no rashes or lesions noted Course 2 Vital Signs: Vital signs: Vital Signs Temperature 97.1 F L 01/11/25 16:47 Pulse Rate 74 01/11/25 17:25 Respiratory Rate 16 01/11/25 17:01 Blood Pressure 107/73 01/11/25 17:25 Pulse Oximetry 96 01/11/25 17:25 Oxygen Delivery Me thod Room Air 01/11/25 17:25 MDM - Arrhythmia/Palpitations Medical Decision Making Patient presents with atrial fibs heart rates much improved he feels improved as well blood works normal he stable for discharge 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 Medical Records I reviewed the patient's medical records. Lab Data I reviewed the patient's lab results. 01/11/25 16:43 01/11/25 16:43 Laboratory Results WBC 9.76 10^3/uL (3.29-11.43) 01/11/25 16:43 RBC 4.92 10^6/uL (3.85-5.65) 01/11/25 16:43 Hgb 16.00 g/dL (11.27-16.99) 01/11/25 16:43 Hct 48.2 % (37-53) 01/11/25 16:43 MCV 98.0 fl (82-101) 01/11/25 16:43 MCH 32.5 pg (27-33) 01/11/25 16:43 MCHC 33.2 g/dL (30-55) 01/11/25 16:43 RDW 12.9 % (12.1-15.1) 01/11/25 16:43 Plt Count 164 10^3/cmm (157-399) 01/11/25 16:43 MPV 9.5 fL (7.4-10.4) 01/11/25 16:43 Neut % (Auto) 56.9 % 01/11/25 16:43 Lymph % (Auto) 31.8 % 01/11/25 16:43 [place] % (Auto) 8.9 % 01/11/25 16:43 Eos % (Auto) 1.8 % 01/11/25 16:43 Baso % (Auto) 0.4 % 01/11/25 16:43 Neut # (Auto) 5.55 10^3/uL (1.8-7.7) 01/11/25 16:43 Lymph # (Auto) 3.1 10^3/uL (0.8-4.8) 01/11/25 16:43 [place] # (Auto) 0.9 10^3/uL (0.2-0.9) 01/11/25 16:43 Eos # (Auto) 0.2 10^3/uL (0.0-0.8) 01/11/25 16:43 Baso # (Auto) 0.0 10^3/uL (0.0-0.1) 01/11/25 16:43 Nucleated RBC % (auto) 0 % 01/11/25 16:43 Nucleated RBCs # 0.0 /100WBC 01/11/25 16:43 PT 12.90 SECONDS (12.1-14.9) 01/11/25 16:43 INR 0.91 (0.8-1.2) 01/11/25 16:43 Sodium 137 mmol/L (136-145) 01/11/25 16:43 Potassium 4.2 mmol/L (3.5-5.1) 01/11/25 16:43 Chloride 99 mmol/L (98-107) 01/11/25 16:43 Carbon Dioxide 27 mmol/L (22-29) 01/11/25 16:43 Anion Gap 15.2 (5-19) 01/11/25 16:43 BUN 17 mg/dL (8-23) 01/11/25 16:43 Creatinine 0.8 mg/dL (0.7-1.2) 01/11/25 16:43 GFR Calculation Not Reportable 01/11/25 16:43 Glucose 120 mg/dL (65-115) H 01/11/25 16:43 Calculated Osmolality 287 mOsm/kg (285-295) 01/11/25 16:43 Calcium 9.7 mg/dL (8.5-10.5) 01/11/25 16:43 Total Bilirubin 0.3 mg/dL (0.15-1.2) 01/11/25 16:43 AST 30 U/L (0-40) 01/11/25 16:43 ALT 21 U/L (0-41) 01/11/25 16:43 Alkaline Phosphatase 161 U/L (40-130) H 01/11/25 16:43 Troponin T Baseline 12 ng/L (0-15) 01/11/25 16:43 Total Protein 7.6 g/dL (6.6-8.7) 01/11/25 16:43 Albumin 4.8 g/dL (3.5-5.2) 01/11/25 16:43 Globulin 2.8 g/dL (1.3-4.6) 01/11/25 16:43 Phenytoin 10.2 ug/mL (10-20) 01/11/25 16:43 All radiology interpretation(s) finalized by discharge Discharge Plan Discharge Patient Disposition: Home Clinical Impression: Atrial fibrillation Condition: Stable Prescriptions: No Action melatonin 5 mg Tablet 5 mg PO BEDTIME omega-3 fatty acids 1,000 mg Capsule 1,000 mg PO QAM phenytoin sodium extended [Dilantin Extended] 100 mg capsule 100 mg PO BID PreserVision AREDS-2 250-90-40-1 mg Capsule 1 tab PO BID aspirin 81 mg Tablet,Delayed Release (Dr/Ec) 81 mg PO DAILY metoprolol tartrate 100 mg tablet 100 mg PO BID Qty: 60 0RF Discharge Orders: Discharge ED (Routine); Ordered 01/11/25 Ordered By: Jorge Cao Referrals: Darell Jackson MD [Primary Care Provider, Family Practice] - 4-7 days Discharge Diet: Advance as tolerated Discharge Activity: Resume usual activity Patient Instructions: A-fib (Atrial Fibrillation) (ED) Print Language: Cape Verdean Coding Level of Care Code ED Tree Farmer for [facility]
[2025-01-11] MEDS: dilTIAZem 5 mg/mL SDV 5 mL 15 MG IVP (16:51)
[2025-01-11 16:55] LABS: Basophils % 0.4 %; Eosinophils # 0.2 10^3/uL (0.0-0.8); Eosinophils % 1.8 %; Hematocrit 48.2 % (37-53); Lymphocytes # 3.1 10^3/uL (0.8-4.8); Lymphocytes % 31.8 %; Mean Corpuscular HGB Conc 33.2 g/dL (30-55); Mean Corpuscular Hemoglobin 32.5 pg (27-33); Mean Platelet Volume 9.5 fL (7.4-10.4); Monocytes # 0.9 10^3/uL (0.2-0.9); Monocytes % 8.9 %; Neutrophils # 5.55 10^3/uL (1.8-7.7); Neutrophils % 56.9 %; Nucleated Red Blood Cells % 0 %; Platelet Count 164 10^3/cmm (157-399); Red Blood Count 4.92 10^6/uL (3.85-5.65); Red Cell Distribution Width 12.9 % (12.1-15.1); White Blood Count 9.76 10^3/uL (3.29-11.43)
[2025-01-11] MEDS: sodium chloride 0.9% 1,000 ML 999 ML IV (17:00)
[2025-01-11 17:01] VITALS: BP 105/60; PULSE 70; RESP 16; O2SAT 100
[2025-01-11 17:10] LABS: INR 0.91 (0.8-1.2)
[2025-01-11 17:12] LABS: Slide Review Slide Review Perform
[2025-01-11 17:14] LABS: Troponin(5th) Baseline 12 ng/L (0-15)
[2025-01-11 17:15] LABS: Alanine Aminotransferase 21 U/L (0-41); Albumin Level 4.8 g/dL (3.5-5.2); Alkaline Phosphatase 161 U/L (40-130); Aspartate Amino Transferase 30 U/L (0-40); Blood Urea Nitrogen 17 mg/dL (8-23); Calcium 9.7 mg/dL (8.5-10.5); Carbon Dioxide 27 mmol/L (22-29); Chloride 99 mmol/L (98-107); Creatinine Clr Calc Pharmacy 68.2535; Globulin 2.8 g/dL (1.3-4.6); Glucose 120 mg/dL (65-115); Osmolality Calculated 287 mOsm/kg (285-295); Phenytoin Dilantin 10.2 ug/mL (10-20); Sodium 137 mmol/L (136-145); Total Bilirubin 0.3 mg/dL (0.15-1.2); Total Protein 7.6 g/dL (6.6-8.7)
[2025-01-11 17:16] LABS: Anion Gap 15.2 (5-19); Potassium 4.2 mmol/L (3.5-5.1)
[2025-01-11 17:25] VITALS: BP 107/73; PULSE 74; O2SAT 96
[2025-01-11 17:35] VITALS: BP 105/63; PULSE 91; O2SAT 97
[2025-01-11] MEDS: metoprolol succinate ER (24 HR) 25 mg Tablet PO (17:44)
== END 2025-01-11 17:44 | disposition home or self-care (01) ==
PROVIDERS: Emergency Provider Emergency Medicine; PCP Family Medicine
DX: I48.91 Unspecified atrial fibrillation (principal); Z79.82 Long term (current) use of aspirin
CPT/HCPCS: 71045; 80053; 80185; 84484; 85025; 85610; 93005; 96374; 99285; J3490; J7030; J9999

== ENCOUNTER 2025-01-11 18:46 | Emergency (ER) | payer MEDICARE, SELFPAY ==
[2025-01-11] VITALS (7 sets, daily range): BP systolic 113–119; BP diastolic 55–96; PULSE 78–144; RESP 15–20; TEMP 36.8; O2SAT 94–98; BMI 24.0
--- NOTE | 2025-01-11 18:56 | ECG_ITS ---
[facility] Test Date: 2025-01-11 Pat Name: Jesus Avilez Department: Room: Gender: Male Bilingual Nanny: : 1940 Requested By: Kaela Arita Order Number: [id number] Yvette MD: GLEN PAZ Measurements Intervals [place] Rate: 125 P: 0 SC: 0 QRS: 0 QRSD: 86 T: 86 QT: 269 QTc: 388 Interpretive Statements ATRIAL FLUTTER/TACHYCARDIA WITH RAPID VENTRICULAR RESPONSE NONSPECIFIC ST & T-WAVE ABNORMALITY ABNORMAL RHYTHM ECG Compared to ECG 01/11/2025 16:36:07 Atrial fibrillation no longer present T-wave abnormality still present Electronically Signed On 01-12-2025 23:31:06 CDT by GLEN PAZ [id number]
--- NOTE | 2025-01-11 18:59 | XRR_ITS ---
PROCEDURE INFORMATION: Exam: XR Chest Exam date and time: 01/11/2025 7:14 PM Age: 84 years old Clinical indication: Chest wall pain; Additional info: Chest pain TECHNIQUE: Imaging protocol: Radiologic exam of the chest. Views: 1 view. COMPARISON: CR (CHEST, ) 01/11/2025 4:55 PM FINDINGS: Lungs: Unremarkable. No consolidation. Pleural spaces: Unremarkable. No pleural effusion. No pneumothorax. Heart/Mediastinum: Unremarkable. No cardiomegaly. Bones/joints: Right proximal humerus enchondroma XR/XR chest 1V portable [id number] IMPRESSION: No acute findings.
[2025-01-11] MEDS: dilTIAZem 5 mg/mL SDV 5 mL 10 MG IVP (19:07)
[2025-01-11 19:08] LABS: Basophils # 0.1 10^3/uL (0.0-0.1); Basophils % 0.6 %; Eosinophils # 0.1 10^3/uL (0.0-0.8); Eosinophils % 1.3 %; Hematocrit 45.7 % (37-53); Lymphocytes # 3.3 10^3/uL (0.8-4.8); Mean Corpuscular HGB Conc 33.9 g/dL (30-55); Mean Corpuscular Hemoglobin 32.7 pg (27-33); Mean Corpuscular Volume 96.4 fl (82-101); Mean Platelet Volume 8.7 fL (7.4-10.4); Monocytes % 9.8 %; Neutrophils # 5.76 10^3/uL (1.8-7.7); Neutrophils % 56.1 %; Nucleated Red Blood Cells % 0 %; Platelet Count 188 10^3/cmm (157-399); Red Blood Count 4.74 10^6/uL (3.85-5.65); Red Cell Distribution Width 12.9 % (12.1-15.1); White Blood Count 10.26 10^3/uL (3.29-11.43)
[2025-01-11] MEDS: dilTIAZem 100 MG in sodium chloride 0.9% (add-van) 100 ML IV (19:20)
[2025-01-11 19:25] LABS: Troponin(5th) Baseline 15 ng/L (0-15)
[2025-01-11 19:38] LABS: Alanine Aminotransferase 18 U/L (0-41); Albumin Level 4.3 g/dL (3.5-5.2); Alkaline Phosphatase 130 U/L (40-130); Anion Gap 16.2 (5-19); Aspartate Amino Transferase 23 U/L (0-40); Blood Urea Nitrogen 18 mg/dL (8-23); Calcium 8.9 mg/dL (8.5-10.5); Carbon Dioxide 24 mmol/L (22-29); Chloride 103 mmol/L (98-107); Creatinine Clr Calc Pharmacy 68.0525; Globulin 2.3 g/dL (1.3-4.6); Glucose 129 mg/dL (65-115); NT Pro B Type Natriuretic Pept 425 pg/mL (0-450); Osmolality Calculated 292 mOsm/kg (285-295); Potassium 4.2 mmol/L (3.5-5.1); Sodium 139 mmol/L (136-145); Total Bilirubin 0.2 mg/dL (0.15-1.2); Total Protein 6.6 g/dL (6.6-8.7)
--- NOTE | 2025-01-11 19:46 | W.ED.CHESTPA ---
HPI - Chest Pain General: Chief Complaint: Chest Pain Stated Complaint: heart rate 160 shakey Time Seen by Provider: 01/11/25 18:56 History of Present Illness: 84-year-old man with a history of anxiety, A-fib with recurrent rapid ventricular response who presents emergency room for the second time today with A-fib with RVR. He had been here earlier today and was converted back to normal response but still in A-fib. He presents here with rapid ventricular response again. Apparently was in the 160s. When I see him he is in the 140s. He has some weakness and jitteriness he says. No chest pain. No altered mental status. No lightheadedness. He had a cardioversion about 10 days ago. He was told that he needed to be admitted that he should be sent back to [facility] in [place]. Related Data Home Medications ?Medication ?Instructions ?Recorded ?Confirmed melatonin 5 mg tablet 5 mg PO BEDTIME 06/02/23 12/20/24 omega-3 fatty acids 1,000 mg 1,000 mg PO QAM 06/02/23 12/20/24 capsule phenytoin sodium extended 100 mg 100 mg PO BID 09/06/23 12/20/24 capsule (Dilantin Extended) vit C 250 mg-vit E 90 mg-zinc 40 1 tab PO BID 09/06/23 12/20/24 mg-copper 1 [id number]-dhfhbr capsule (PreserVision AREDS-2) aspirin 81 mg tablet,delayed 81 mg PO DAILY 01/01/24 12/20/24 release Previous Rx's ?Medication ?Instructions ?Recorded metoprolol tartrate 100 mg tablet 100 mg PO BID #60 tabs 09/17/24 Allergies Allergy/AdvReac Type Severity Reaction Status Date / Time levetiracetam (From [facility]) Allergy ADR-Halluci Verified 01/11/25 19:03 nating Review of Systems Narrative: Constitutional symptoms: Negative except as documented in HPI. Skin symptoms: Negative except as documented in HPI. Eye symptoms: Negative except as documented in HPI. ENMT symptoms: Negative except as documented in HPI. Respiratory symptoms: Negative except as documented in HPI. Cardiovascular symptoms: Negative except as documented in HPI. Gastrointestinal symptoms: Negative except as documented in HPI. Genitourinary symptoms: Negative except as documented in HPI. Musculoskeletal symptoms: Negative except as documented in HPI. Neurologic symptoms: Negative except as documented in HPI. Psychiatric symptoms: Negative except as documented in HPI. Endocrine symptoms: Negative except as documented in HPI. PFSH ED PFSH: Medical History Anxiety Atrial fibrillation with rapid ventricular response Atrial fibrillation, new onset Urethral stricture Lower urinary tract symptoms (LUTS) Surgical History Hx of tonsillectomy H/O arthroscopy of knee left History of carpal tunnel release left H/O rotator cuff surgery left Family History Father , at age 63 Cancer tongue Mother , at age 64 Lung disease Social History Smoking and tobacco/nicotine status: never used tobacco/nicotine Alcohol intake: current Alcohol intake frequency: 0-2 Drinks per Day Marital status: Current occupational status: retired Physical Exam Narrative: EXAM NARRATIVE: General: Alert, no acute distress. Skin: Warm, dry. Head: Normocephalic, atraumatic. Neck: Supple, trachea midline. Eye: Extraocular movements are intact. Ears, nose, mouth and throat: mucosa moist. Cardiovascular: Irregularly irregular, tachycardic, normal peripheral perfusion. Respiratory: Lungs are clear to auscultation, respirations are non-labored, breath sounds are equal, Symmetrical chest wall expansion. Gastrointestinal: Soft, Nontender, Non distended Musculoskeletal: Normal ROM, no deformity. Neurological: Alert and oriented, No focal neurological deficit observed. Psychiatric: Cooperative, appropriate mood & affect. Course Vital Signs: Vital signs: Vital Signs Temperature 98.2 F 01/11/25 18:57 Pulse Rate 78 01/11/25 19:36 Respiratory Rate 15 01/11/25 19:36 Blood Pressure 115/67 01/11/25 19:36 Pulse Oximetry 94 01/11/25 19:36 Oxygen Delivery Me thod Room Air 01/11/25 19:36 MDM - Chest Pain Medical Decision Making Medical decision making: Differential diagnosis including but not limited to and based on the above HPI, review of systems and physical exam: for patient with palpitations: atrial fibrillation with rapid ventricular response. ventricular tachycardia. sinus tachycardia. PVCs. also concern for underlying issues causing tachycardia. Infection, electrolyte abnormalities and thyroid issues. Orders placed to evaluate differential diagnosis based on the above differential, HPI and physical exam EKG: Time 1955. Rate 125 atrial fibrillation with rapid ventricular response, No ST-T changes, no ectopy, This was reviewed and interpreted by myself the ER physician at 1900. Chest x-ray: No acute process. No infiltrate. No pneumothorax. This was reviewed and interpreted by myself the emergency room physician. I also reviewed the radiology report. Lab Review: Laboratory results were reviewed and interpreted by myself the emergency room physician. No leukocytosis. No anemia. No renal failure. proBNP is 425. LFTs are normal. I reviewed the patient's medical record. Reexamination: Patient has a slowed rate now. He has been in the 60s to 80s since he received diltiazem. He remains on a drip. No altered mental status. No increased work of breathing. Consultation: I spoke with Dr. Ball with cardiology at [facility] and he recommends transfer to the hospitalist service for EP evaluation. Consultation: I spoke with Dr. Simons with the hospitalist service at [facility] and she will admit the patient to cardiac stepdown unit. Assessment and plan: Atrial fibrillation with rapid ventricular response -I discussed the patient with the accepting physician on-call. - Discussed findings and plan with patient. Answered any questions. - All laboratory values were reviewed and interpreted personally by myself, the ER physician - All imaging was reviewed and interpreted personally by myself, the ER physician. - Evaluation and treatment of this problem were appropriate in the emergency setting Lab Data 01/11/25 19:00 01/11/25 19:00 Radiology Impressions Chest X-Ray 01/11/25 18:59 IMPRESSION: No acute findings. Laboratory Results WBC 10.26 10^3/uL (3.29-11.43) 01/11/25 19:00 RBC 4.74 10^6/uL (3.85-5.65) 01/11/25 19:00 Hgb 15.50 g/dL (11.27-16.99) 01/11/25 19:00 Hct 45.7 % (37-53) 01/11/25 19:00 MCV 96.4 fl (82-101) 01/11/25 19:00 MCH 32.7 pg (27-33) 01/11/25 19:00 MCHC 33.9 g/dL (30-55) 01/11/25 19:00 RDW 12.9 % (12.1-15.1) 01/11/25 19:00 Plt Count 188 10^3/cmm (157-399) 01/11/25 19:00 MPV 8.7 fL (7.4-10.4) 01/11/25 19:00 Neut % (Auto) 56.1 % 01/11/25 19:00 Lymph % (Auto) 32.0 % 01/11/25 19:00 [place] % (Auto) 9.8 % 01/11/25 19:00 Eos % (Auto) 1.3 % 01/11/25 19:00 Baso % (Auto) 0.6 % 01/11/25 19:00 Neut # (Auto) 5.76 10^3/uL (1.8-7.7) 01/11/25 19:00 Lymph # (Auto) 3.3 10^3/uL (0.8-4.8) 01/11/25 19:00 [place] # (Auto) 1.0 10^3/uL (0.2-0.9) H 01/11/25 19:00 Eos # (Auto) 0.1 10^3/uL (0.0-0.8) 01/11/25 19:00 Baso # (Auto) 0.1 10^3/uL (0.0-0.1) 01/11/25 19:00 Nucleated RBC % (auto) 0 % 01/11/25 19:00 Nucleated RBCs # 0.0 /100WBC 01/11/25 19:00 Sodium 139 mmol/L (136-145) 01/11/25 19:00 Potassium 4.2 mmol/L (3.5-5.1) 01/11/25 19:00 Chloride 103 mmol/L (98-107) 01/11/25 19:00 Carbon Dioxide 24 mmol/L (22-29) 01/11/25 19:00 Anion Gap 16.2 (5-19) 01/11/25 19:00 BUN 18 mg/dL (8-23) 01/11/25 19:00 Creatinine 0.7 mg/dL (0.7-1.2) 01/11/25 19:00 GFR Calculation Not Reportable 01/11/25 19:00 Glucose 129 mg/dL (65-115) H 01/11/25 19:00 Calculated Osmolality 292 mOsm/kg (285-295) 01/11/25 19:00 Calcium 8.9 mg/dL (8.5-10.5) 01/11/25 19:00 Total Bilirubin 0.2 mg/dL (0.15-1.2) 01/11/25 19:00 AST 23 U/L (0-40) 01/11/25 19:00 ALT 18 U/L (0-41) 01/11/25 19:00 Alkaline Phosphatase 130 U/L (40-130) 01/11/25 19:00 Troponin T Baseline 15 ng/L (0-15) 01/11/25 19:00 NT-Pro-B Natriuret Pep 425 pg/mL (0-450) 01/11/25 19:00 Total Protein 6.6 g/dL (6.6-8.7) 01/11/25 19:00 Albumin 4.3 g/dL (3.5-5.2) 01/11/25 19:00 Globulin 2.3 g/dL (1.3-4.6) 01/11/25 19:00 All radiology interpretation(s) finalized by discharge Discharge Plan Discharge Patient Disposition: Xfer Short-Term Hosp Clinical Impression: Atrial fibrillation with rapid ventricular response Condition: Stable Referrals: Darell Jackson MD [Primary Care Provider, [facility]] Print Language: Icelandic Coding Level of Care Code ED 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
--- NOTE | 2025-01-11 20:59 | ECG_ITS ---
[employer] Test Date: 2025-01-11 Pat Name: Jesus Avilez Department: Room: Gender: Male Pharmacist Critical Care: : 1940 Requested By: Kaela Arita Order Number: [id number] Yvette MD: GLEN PAZ Measurements Intervals [place] Rate: 86 P: 0 DC: 0 QRS: -12 QRSD: 89 T: 74 QT: 335 QTc: 402 Interpretive Statements ATRIAL FIBRILLATION NONSPECIFIC T-WAVE ABNORMALITY ABNORMAL RHYTHM ECG Compared to ECG 01/11/2025 18:56:48 Atrial flutter no longer present T-wave abnormality still present Electronically Signed On 01-12-2025 23:39:05 CDT by GLEN PAZ [id number]
[2025-01-11 21:33] LABS: Troponin 5 2HR 13.62 ng/L (0-15)
[2025-01-11 21:34] LABS: Troponin 5 2HR Delta -1.38 ABS# (0-10)
--- NOTE | 2025-01-12 02:11 | PC.NURSE ---
[facility].
== END 2025-01-11 21:46 | disposition short-term general hospital (02) ==
PROVIDERS: Emergency Provider Emergency Medicine; PCP Family Medicine
DX: I48.20 Chronic atrial fibrillation, unspecified (principal)
CPT/HCPCS: 36415; 71045; 80053; 83880; 84484; 85025; 93005; 96365; 96366; 96375; 99285; J3490; J9999

== ENCOUNTER 2025-01-14 21:34 | Emergency (ER) | payer MEDICARE, SELFPAY ==
[2025-01-14 21:50] VITALS: BP 132/79; PULSE 135; RESP 18; TEMP 36.7; O2SAT 96; BMI 24.3
--- NOTE | 2025-01-14 22:21 | XRR_ITS ---
PROCEDURE INFORMATION: Exam: XR Chest Exam date and time: 01/14/2025 10:44 PM Age: 84 years old Clinical indication: Prior surgery; Surgery date: 6+ months; Surgery type: makers, cardiac ablation; Palpitations; Halter monitor in place TECHNIQUE: Imaging protocol: Radiologic exam of the chest. Views: 1 view. COMPARISON: CR (CHEST, ) 01/11/2025 7:14 PM FINDINGS: Lungs: Lungs are hyperinflated. Clear parenchyma. Pleural spaces: No pleural effusion. No pneumothorax. Heart/Mediastinum: Cardiac silhouette is normal in size for technique. Bones/joints: Bilateral shoulder arthropathy. Truncated left distal clavicle. XR/XR chest 1V portable [id number] IMPRESSION: Hyperinflated but clear lungs. No other acute cardiopulmonary abnormality.
[2025-01-14] MEDS: dilTIAZem 5 mg/mL SDV 5 mL 15 MG IVP (22:22)
--- NOTE | 2025-01-14 22:22 | ECG_ITS ---
[facility] Date: [facility]25-01[facility]14 Pat Name: Jesus Avilez Department: Room: Gender: Male Explosive Ordnance Manager: : 1940 Requested By: Robbie Lee Order Number: [id number] Yvette MD: Norberto Lozoya M.D. Measurements Intervals [place] Rate: 145 P: 0 AK: 0 QRS: -6 QRSD: 98 T: 101 QT: 285 QTc: 444 Interpretive Statements ATRIAL FLUTTER/TACHYCARDIA WITH RAPID VENTRICULAR RESPONSE NONSPECIFIC ST & T-WAVE ABNORMALITY Compared to ECG 01/11/2025 20:56:12 T-wave abnormality still present Electronically Signed On 01-15-2025 12:30:56 CDT by Norberto Lozoya M.D. [id number]
[2025-01-14 22:37] LABS: Basophils # 0.1 10^3/uL (0.0-0.1); Basophils % 0.7 %; Eosinophils # 0.1 10^3/uL (0.0-0.8); Eosinophils % 1.4 %; Hematocrit 41.6 % (37-53); Lymphocytes # 2.9 10^3/uL (0.8-4.8); Lymphocytes % 29.5 %; Mean Corpuscular HGB Conc 33.9 g/dL (30-55); Mean Corpuscular Hemoglobin 32.5 pg (27-33); Mean Corpuscular Volume 95.9 fl (82-101); Mean Platelet Volume 9.1 fL (7.4-10.4); Monocytes # 1.2 10^3/uL (0.2-0.9); Monocytes % 11.9 %; Neutrophils # 5.45 10^3/uL (1.8-7.7); Neutrophils % 56.3 %; Nucleated Red Blood Cells % 0 %; Platelet Count 207 10^3/cmm (157-399); Red Blood Count 4.34 10^6/uL (3.85-5.65); Red Cell Distribution Width 12.9 % (12.1-15.1); White Blood Count 9.69 10^3/uL (3.29-11.43)
[2025-01-14 22:41] LABS: INR 0.96 (0.8-1.2)
[2025-01-14 22:42] LABS: Partial Thromboplastin Time 28.3 SECONDS (23.9-36.7)
[2025-01-14 22:48] LABS: Troponin(5th) Baseline 15 ng/L (0-15)
[2025-01-14 22:55] VITALS: BP 95/56; PULSE 84; RESP 18; O2SAT 98
[2025-01-14 22:58] LABS: Alanine Aminotransferase 18 U/L (0-41); Albumin Level 4.1 g/dL (3.5-5.2); Alkaline Phosphatase 152 U/L (40-130); Anion Gap 15.3 (5-19); Aspartate Amino Transferase 22 U/L (0-40); Blood Urea Nitrogen 21 mg/dL (8-23); Carbon Dioxide 24 mmol/L (22-29); Chloride 99 mmol/L (98-107); Creatinine Clr Calc Pharmacy 60.6698; Globulin 2.6 g/dL (1.3-4.6); Glucose 121 mg/dL (65-115); Magnesium 2.5 mg/dL (1.7-2.3); NT Pro B Type Natriuretic Pept 293 pg/mL (0-450); Osmolality Calculated 282 mOsm/kg (285-295); Potassium 4.3 mmol/L (3.5-5.1); Sodium 134 mmol/L (136-145); Total Bilirubin 0.2 mg/dL (0.15-1.2); Total Protein 6.7 g/dL (6.6-8.7)
[2025-01-14 23:40] LABS: Bilirubin Urine Negative (Negative); Blood Urine Negative (Negative); Glucose Urine UA Negative (Normal); Ketones Urine Negative (Negative); Leukocyte Esterase Urine 1+ (Negative); Nitrate Urine Positive (Negative); Protein Urine Negative (Negative); Specific Gravity, Urine 1.013 (1.005-1.030); Urine Appearance Clear (CLEAR); Urine Color Yellow (Yellow); Urobilinogen Urine 0.2 mg/dL (Negative)
[2025-01-14 23:43] LABS: Add Urine Microscopic? YES; Bacteria Urine 4+ /hpf; Hyaline Casts Urine 22.73 /lpf; RBC Urine 0-2 /hpf (0-2); Squamous Epithelial Cell Urine 0-5 /hpf (0-5); WBC Urine 21-50 /hpf (0-5)
[2025-01-14 23:59] LABS: Add Urine Culture? Yes; UA Slide Review UA Slide Review Perf
[2025-01-15] MEDS: dilTIAZem 100 MG in sodium chloride 0.9% (add-van) 100 ML IV
--- NOTE | 2025-01-15 00:22 | ECG_ITS ---
[facility] [employer] Test Date: 2025-01-15 Pat Name: Jesus Avilez Department: Room: Gender: Male Non Destructive Testing Inspector: : 1940 Requested By: Robbie Lee Order Number: [id number] Yvette MD: Norberto Lozoya M.D. Measurements Intervals [place] Rate: 63 P: 64 [place]: 212 QRS: -7 QRSD: 110 T: 56 QT: 390 QTc: 401 Interpretive Statements SINUS RHYTHM WITH FIRST DEGREE AV BLOCK Compared to ECG 01/11/2025 20:56:12 First degree AV block now present Atrial fibrillation no longer present T-wave abnormality no longer present Electronically Signed On 01-15-2025 12:39:01 CDT by Norberto Lozoya M.D. [email or web address]
[2025-01-15 00:59] LABS: Troponin 5 2HR 13.71 ng/L (0-15)
[2025-01-15 01:08] LABS: Troponin 5 2HR Delta -1.29 ABS# (0-10)
[2025-01-15] MEDS: cefTRIAXone 1,000 mg SDV 1000 MG IVP (01:30)
[2025-01-15] MEDS: sodium chloride 0.9% (100 ml) 100 ML (01:49)
[2025-01-15] MEDS: dilTIAZem 30 mg Tablet PO (01:49)
--- NOTE | 2025-01-15 01:50 | W.ED.ARRPALP ---
HPI - Arrhythmia/Palpitations General: Chief Complaint: Arrhythmia/Palpitations Stated Complaint: Heart Rate spiking up to 140 Time Seen by Provider: 01/14/25 22:17 History of Present Illness: 84-year-old male patient with a history of atrial fibrillation. He had ablation procedure in [place] on 12/03. He has been back to see us multiple times with A-fib with RVR and palpitations since that time. He was recently sent back to [facility] in [place] for further workup regarding this. He was allowed back home. Evidently his metoprolol was increased in dosage. He felt palpitations at home, did not feel well, checked his pulse, and it was in the 140s. He denies chest pain currently. He is mildly short of breath. Related Data Home Medications ?Medication ?Instructions ?Recorded ?Confirmed melatonin 5 mg tablet 5 mg PO BEDTIME 06/02/23 12/20/24 omega-3 fatty acids 1,000 mg 1,000 mg PO QAM 06/02/23 12/20/24 capsule phenytoin sodium extended 100 mg 100 mg PO BID 09/06/23 12/20/24 capsule (Dilantin Extended) vit C 250 mg-vit E 90 mg-zinc 40 1 tab PO BID 09/06/23 12/20/24 mg-copper 1 gp-fomjma-parvoj capsule (PreserVision AREDS-2) aspirin 81 mg tablet,delayed 81 mg PO DAILY 01/01/24 12/20/24 release Previous Rx's ?Medication ?Instructions ?Recorded metoprolol tartrate 100 mg tablet 100 mg PO BID #60 tabs 09/17/24 cefdinir 300 mg capsule 300 mg PO BID #14 caps 01/15/25 diltiazem HCl 30 mg tablet 30 mg PO Q8H #30 tabs 01/15/25 Allergies Allergy/AdvReac Type Severity Reaction Status Date / Time levetiracetam (From [facility]) Allergy A[facility]uci [facility] Medical History Anxiety Atrial fibrillation with rapid ventricular response Atrial fibrillation, new onset Urethral stricture Lower urinary tract symptoms (LUTS) Surgical History Hx of tonsillectomy H/O arthroscopy of knee left History of carpal tunnel release left H/O rotator cuff surgery left Family History Father , at age 63 Cancer tongue Mother , at age 64 Lung disease Social History Smoking and tobacco/nicotine status: never used tobacco/nicotine Alcohol intake: current Alcohol intake frequency: 0-2 Drinks per Day Marital status: Current occupational status: retired Physical Exam Const: COMMON NORMALS: no acute distress GENERAL APPEARANCE: cooperative; not ill appearing and not frail appearing HENMT: COMMON NORMALS: normocephalic, atraumatic and Normal external nose present HEAD & SCALP: normocephalic and atraumatic FACE & SINUS: normal facial exam and face symmetric NOSE: Normal external nose present Eye: COMMON NORMALS: Equal, round and reactive pupils present and EOMs intact bilaterally PUPIL: Yes Equal, round and reactive pupils present Neck/C-Spine: GENERAL: Yes trachea midline Chest: CHEST: Yes Symmetrical chest wall rise Resp: COMMON NORMALS: normal respiratory effort, No retractions, No use of accessory muscles and clear to auscultation bilaterally AUSCULTATION: clear to auscultation bilaterally Cardio: RATE: tachycardic RHYTHM: abnormal rhythm irregularly irregular GI: COMMON NORMALS: Normal to inspection, nondistended, normoactive bowel sounds present Extremity: COMMON NORMALS: no pedal edema Neuro: AUTUMN COMA SCALE: document GCS findings [place] coma scale eye opening: Spontaneous [place] coma scale verbal response: Orientated [place] coma scale motor response: Obey commands [place] coma scale total score: 15 SENSORY EXAM: Yes extremities (intact) Psych: COMMON NORMALS: speech normal SPEECH: Yes normal speech Skin: COMMON NORMALS: no rashes or lesions noted GENERAL SKIN EXAM: no rashes or lesions noted Course Vital Signs: Vital signs: Vital Signs Temperature 98.1 F 01/14/25 21:50 Pulse Rate 74 01/15/25 02:10 Respiratory Rate 18 01/15/25 02:10 Blood Pressure 112/64 01/15/25 02:10 Pulse Oximetry 98 01/15/25 02:10 Oxygen Delivery Me thod Room Air 01/14/25 21:50 MDM - Arrhythmia/Palpitations Medical Decision Making Patient responded rate rosenberg to bolus of diltiazem, but rate slowly came back up to the 120s. He was placed on a drip, with resolution of his atrial fibs/flutter on the monitor. He is now in sinus rhythm. Drip was stopped with no recurrence of the atrial fibrillation. He is given oral diltiazem to prevent this. He is normotensive. Other vitals are normal. His laboratory was not remarkable, however his urinalysis shows significant urinary tract infection, which is treated with IV Rocephin. Lungs are clear. No sign of pulmonary edema. We spoke with Wilma Arndt in [place]. This is regarding potential transfer for recalcitrant atrial fibs with RVR despite ablation procedure, as we do not have EP here. They have no beds currently. We counseled the patient on this. He wishes to go home since he is back in sinus, to follow-up as an outpatient. He will be allowed home on antibiotics, and oral diltiazem to stop for rates below 55. Lab Data 01/14/25 22:15 01/14/25 22:15 Radiology Impressions Chest X-Ray 01/14/25 22:21 IMPRESSION: Hyperinflated but clear lungs. No other acute cardiopulmonary abnormality. Laboratory Results WBC 9.69 10^3/uL (3.29-11.43) 01/14/25 22:15 RBC 4.34 10^6/uL (3.85-5.65) 01/14/25 22:15 Hgb 14.10 g/dL (11.27-16.99) 01/14/25 22:15 Hct 41.6 % (37-53) 01/14/25 22:15 MCV 95.9 fl (82-101) 01/14/25 22:15 MCH 32.5 pg (27-33) 01/14/25 22:15 MCHC 33.9 g/dL (30-55) 01/14/25 22:15 RDW 12.9 % (12.1-15.1) 01/14/25 22:15 Plt Count 207 10^3/cmm (157-399) 01/14/25 22:15 MPV 9.1 fL (7.4-10.4) 01/14/25 22:15 Neut % (Auto) 56.3 % 01/14/25 22:15 Lymph % (Auto) 29.5 % 01/14/25 22:15 [place] % (Auto) 11.9 % 01/14/25 22:15 Eos % (Auto) 1.4 % 01/14/25 22:15 Baso % (Auto) 0.7 % 01/14/25 22:15 Neut # (Auto) 5.45 10^3/uL (1.8-7.7) 01/14/25 22:15 Lymph # (Auto) 2.9 10^3/uL (0.8-4.8) 01/14/25 22:15 Mingo # (Auto) 1.2 10^3/uL (0.2-0.9) H 01/14/25 22:15 Eos # (Auto) 0.1 10^3/uL (0.0-0.8) 01/14/25 22:15 Baso # (Auto) 0.1 10^3/uL (0.0-0.1) 01/14/25 22:15 Nucleated RBC % (auto) 0 % 01/14/25 22:15 Nucleated RBCs # 0.0 /100WBC 01/14/25 22:15 PT 13.40 SECONDS (12.1-14.9) 01/14/25 22:15 INR 0.96 (0.8-1.2) 01/14/25 22:15 APTT 28.3 SECONDS (23.9-36.7) 01/14/25 22:15 Sodium 134 mmol/L (136-145) L 01/14/25 22:15 Potassium 4.3 mmol/L (3.5-5.1) 01/14/25 22:15 Chloride 99 mmol/L (98-107) 01/14/25 22:15 Carbon Dioxide 24 mmol/L (22-29) 01/14/25 22:15 Anion Gap 15.3 (5-19) 01/14/25 22:15 BUN 21 mg/dL (8-23) 01/14/25 22:15 Creatinine 0.9 mg/dL (0.7-1.2) 01/14/25 22:15 GFR Calculation Not Reportable 01/14/25 22:15 Glucose 121 mg/dL (65-115) H 01/14/25 22:15 Calculated Osmolality 282 mOsm/kg (285-295) L 01/14/25 22:15 Calcium 9.0 mg/dL (8.5-10.5) 01/14/25 22:15 Magnesium 2.5 mg/dL (1.7-2.3) H 01/14/25 22:15 Total Bilirubin 0.2 mg/dL (0.15-1.2) 01/14/25 22:15 AST 22 U/L (0-40) 01/14/25 22:15 ALT 18 U/L (0-41) 01/14/25 22:15 Alkaline Phosphatase 152 U/L (40-130) H 01/14/25 22:15 Troponin T Baseline 15 ng/L (0-15) 01/14/25 22:15 Troponin T 120 Minute 13.71 ng/L (0-15) 01/15/25 00:31 Delta Troponin T -1.29 ABS# (0-10) L 01/15/25 00:31 NT-Pro-B Natriuret Pep 293 pg/mL (0-450) 01/14/25 22:15 Total Protein 6.7 g/dL (6.6-8.7) 01/14/25 22:15 Albumin 4.1 g/dL (3.5-5.2) 01/14/25 22:15 Globulin 2.6 g/dL (1.3-4.6) 01/14/25 22:15 Urine Color Yellow (Yellow) 01/14/25: Urine Appearance Clear (CLEAR) 01/14/25: Urine pH 7.0 (5-7) 01/14/25: Ur Specific [place] 1.013 (1.005-1.030) 01/14/25 23: Urine Protein Negative (Negative) 01/14/25: Urine Glucose (UA) Negative (Normal) 01/14/25: Urine Ketones Negative (Negative) 01/14/25: Urine Blood Negative (Negative) 01/14/25 23: Urine Nitrate Positive (Negative) A 01/14/25: Urine Bilirubin Negative (Negative) 01/14/25: Urine Urobilinogen 0.2 mg/dL (Negative) 01/14/25: Ur Leukocyte Esterase 1+ (Negative) A 01/14/25 23:29 Urine RBC 0-2 /hpf (0-2) 01/14/25 23:29 Urine WBC 21-50 /hpf (0-5) H 01/14/25 23:29 Ur Squamous Epith Cells 0-5 /hpf (0-5) 01/14/25 23:29 Amorphous Sediment Not Reportable 01/14/25 23:29 Urine Bacteria 4+ /hpf (NONE) H 01/14/25 23:29 Hyaline Casts 22.73 /lpf 01/14/25 23:29 All radiology interpretation(s) finalized by discharge Discharge Plan Discharge Patient Disposition: Home Clinical Impression: Atrial fibrillation with rapid ventricular response, UTI (urinary tract infection) Condition: Stable Prescriptions: New diltiazem HCl 30 mg tablet 30 mg PO Q8H Qty: 30 0RF cefdinir 300 mg capsule 300 mg PO BID Qty: 14 0RF No Action melatonin 5 mg Tablet 5 mg PO BEDTIME omega-3 fatty acids 1,000 mg Capsule 1,000 mg PO QAM phenytoin sodium extended [Dilantin Extended] 100 mg capsule 100 mg PO BID PreserVision AREDS-2 250-90-40-1 mg Capsule 1 tab PO BID aspirin 81 mg Tablet,Delayed Release (Dr/Ec) 81 mg PO DAILY metoprolol tartrate 100 mg tablet 100 mg PO BID Qty: 60 0RF Discharge Orders: Discharge ED (Routine); Ordered 01/15/25 Ordered By: Robbie Somers Referrals: Darell Jackson MD [Primary Care Provider, [facility]] - 1-3 days Patient Instructions: A-fib (Atrial Fibrillation) (ED), Urinary Tract Infection in Men (ED), Opioid Safety, Pain Management Activity Restrictions/Additional Instructions: Antibiotics as directed for urinary tract infection. Take the diltiazem 3 times daily. Measure your heart rate at least 3 times daily. Do not take the diltiazem if your heart rate falls below 55. Call your heart doctor Thursday morning for a follow-up appointment. Let them know you were seen here again with rapid heart rates. Print Language: Ecuadorean Coding Level of Care Code ED Marriage Performer for More Mallory
[2025-01-15 02:10] VITALS: BP 112/64; PULSE 74; RESP 18; O2SAT 98
== END 2025-01-15 02:12 | disposition home or self-care (01) ==
PROVIDERS: Emergency Provider Emergency Medicine; PCP Family Medicine
DX: I48.20 Chronic atrial fibrillation, unspecified (principal); N39.0 Urinary tract infection, site not specified; Z79.82 Long term (current) use of aspirin; Z95.818 Presence of other cardiac implants and grafts
CPT/HCPCS: 36415; 71045; 80053; 81001; 83735; 83880; 84484; 85025; 85610; 85730; 87086; 93005; 96374; 96375; 99285; J0696; J3490; J9999

== ENCOUNTER 2025-03-08 14:32 | Emergency (ER) | payer MEDICARE, SELFPAY ==
--- OUTSIDE RECORDS SUMMARY | 2024-09-09 06:30 | XMS_ITS ---
Author Organization [facility] Address [address] [place] [address] Care Team Providers Care Old Coin Dealer Name Role Phone Manuel PASCAL, Darell Primary Care Provider Alyssia Mohr [phone] REASON FOR VISIT 2 mo per 07/15/24 drk ov/lg Encounters Encounter Location Date Provider Diagnosis [facility] [address] [place] [phone] 09/09/2024 Alyssia Carter Plan Of Treatment No Information Progress Notes * CABRERAJesus DDOB: [birth year] (84 yo M)Acc No.[id number]:09/09/2024 Progress Notes Patient: Jesus LLAMAS Provider: Ellen Carter MD :1940 A ge:84 Y S ex:Male Date:09/09/2024 Address:[facility] [phone] Pcp:Darell Jackson MD Subjective: * Chief Complaints: * 1 . 2 mo per 07/15/24 drk ov/lg. * Medical History: Objective: * Vitals: Assessment: Plan: * Treatment: * Billing Information: * Visit Code: * Procedure Codes: * Electronic signature of Page Carter MD on 03/08/2025 at 08:44 AM CDT Sign off status: Pending * Provider: Ellen Carter MD Date: 0 09/09/2024 Generated for Madhu pagan/Lalo/Heber on: 0 03/08/2025 08:44 AM CDT
--- OUTSIDE RECORDS SUMMARY | 2024-09-27 05:45 | XMS_ITS ---
Author Organization [facility] Address [address] [place] [address] Care Team Providers Care Communications Consultant Name Role Phone Manuel PASCAL, Darell Primary Care Provider Alyssia Mohr [phone] REASON FOR VISIT 2 mo per 07/15/24 drk ov/lg Encounters Encounter Location Date Provider Diagnosis [facility] [address] [place] [phone] 09/27/2024 Alyssia Carter Plan Of Treatment No Information Progress Notes * CABRERAJesus DDOB: [birth year] (84 yo M)Acc No.[id number]:09/27/2024 Progress Notes Patient: Jesus LLAMAS Provider: Ellen Carter MD :1940 A ge:84 Y S ex:Male Date:09/27/2024 Address:[facility] [id number] Pcp:Darell Jackson MD Subjective: * Chief Complaints: * 1 . 2 mo per 07/15/24 drk ov/lg. * Medical History: Objective: * Vitals: Assessment: Plan: * Treatment: * Billing Information: * Visit Code: * Procedure Codes: * Electronic signature of Page Carter MD on 03/08/2025 at 08:44 AM CDT Sign off status: Pending * Provider: Ellen Carter MD Date: 09/27/2024 Generated for Madhu pagan/Lalo/Heber on: 0 03/08/2025 08:44 AM CDT
--- NOTE | 2025-03-08 14:33 | XRR_ITS ---
PROCEDURE INFORMATION: Exam: XR Chest Exam date and time: 03/08/2025 2:42 PM Age: 84 years old Clinical indication: Pain; Angina pectoris; Additional info: Cp TECHNIQUE: Imaging protocol: Radiologic exam of the chest. Views: 1 view. COMPARISON: CR XR chest 1V portable [id number] 01/14/2025 10:44 PM FINDINGS: Lungs: Mild left basilar streaky opacities. Left apical calcified granuloma. Pleural spaces: No pleural effusion pneumothorax. Heart/Mediastinum: No cardiomegaly. Watchman device. Vasculature: Aortic calcifications. Bones/joints: Advanced degenerative changes of the right shoulder. Suggested postoperative changes of distal left clavicle resection. XR/XR chest 1V portable [id number] IMPRESSION: Mild left basilar atelectasis scarring versus airspace disease.
[2025-03-08 14:34] VITALS: BP 123/90; PULSE 96; TEMP 36.5; O2SAT 95
--- OUTSIDE RECORDS SUMMARY | 2025-03-08 14:38 | XMS_ITS | Patient Health Record ---
Author Organization [facility] Address [address] [place] [address] Care Team Providers Care Scale Tester Name Role Phone Manuel PASCAL, Darell Primary Care Provider Alyssia Mohr Unavailable [phone] Edwin Tan Unavailable [phone] Majo Elkins Unavailable [phone] Muriel Perdomo Unavailable [phone] Allergies No Known Allergies Results Component Value Reference Range Notes Echo Complete [id number] Reviewed date:07/15/2024 11:25:58 AM Interpretation: Performing Lab: Notes/Report: Echo Complete [id number] Reviewed date:07/29/2024 11:07:21 AM Interpretation: Performing Lab: Notes/Report: arx=[id number]=iSite NM Lexiscan Cardiolite-[id number] Reviewed date:08/02/2024 04:12:49 PM Interpretation: Performing Lab: Notes/Report: See Below For Report NM Lexiscan Cardiolite Read See Below For Report NM Lexiscan Cardiolite-[id number] Reviewed date:08/02/2024 04:12:59 PM Interpretation: Performing Lab: Notes/Report: vgd=[id number]&org=iSite Echo Complete [id number] Reviewed date:07/29/2024 11:07:15 AM Interpretation: Performing Lab: Notes/Report: Cardiopulmonary Services Name: ADITHYA REES Study Date: 07/26/2024 : 1940 Patient Location: [facility] Age: 84 yrs Gender: Male HR: 65 Reason For Study: afib Interpretation Summary The left ventricle is normal in size. Left ventricular systolic function is normal. Left Ventricular Function is estimated to be 60-65%. Trace aortic regurgitation. Mild pulmonic valvular regurgitation. There is no pericardial effusion. Recommendations Continue present medication. Will continue to follow regularly. Left Ventricle The left ventricle is normal in size. There is moderate concentric left ventricular hypertrophy. Left ventricular systolic function is normal. Left Ventricular Function is estimated to be 60-65%. Right Ventricle The right ventricle is normal size. Atria The left atrial size is normal. Right atrial size is normal. Pericardium/Pleural There is no pericardial effusion. There is no pleural effusion. Mitral Valve The mitral valve leaflets appear normal. There is no evidence of stenosis, fluttering, or prolapse. There is trace mitral regurgitation. Aortic Valve The aortic valve opens well. Trace aortic regurgitation. Tricuspid Valve The tricuspid valve is not well visualized, but is grossly normal. Pulmonic Valve The pulmonic valve is not well visualized. Mild pulmonic valvular regurgitation. MMode/2D Measurements & Calculations RVDd: 3.3 cm LVIDd: 3.5 cm FS: 33.3 % IVSd: 1.6 cm LVIDs: 2.3 cm EDV(Teich): 50.6 ml ESV(Teich): 18.7 ml EF(Teich): 63.0 % Ao root diam: 3.6 cm asc Aorta Diam: 3.7 cm LVOT diam: 1.9 cm Ao root area: 10.3 cm2 LVOT area: 2.8 cm2 ACS: 2.2 cm LA dimension: 3.4 cm Time Measurements Aortic HR: 61.9 BPM MM HR: 61.3 BPM Doppler Measurements & Calculations MV E max mary ellen: 77.3 cm/sec MV dec slope: 299.4 cm/sec2 Ao V2 max: 107.6 cm/sec MV A max mary ellen: 83.7 cm/sec MV dec time: 0.26 sec Ao max P.6 mmHg MV E/A: 0.92 Ao V2 mean: 64.4 cm/sec Ao mean P.0 mmHg Ao V2 VTI: 18.7 cm CAYETANO(I,D): 3.3 cm2 CAYETANO(V,D): 2.2 cm2 LV V1 max P.7 mmHg CO(LVOT): 3.8 l/min PA V2 max: 93.0 cm/sec LV V1 mean P.3 mmHg SV(LVOT): 61.0 ml PA max P.5 mmHg LV V1 max: 82.9 cm/sec LV V1 mean: 50.7 cm/sec LV V1 VTI: 21.5 cm PI end-d mary ellen: 177.0 cm/sec TR max mary ellen: 188.5 cm/sec RAP systole: 10.0 mmHg TR max P.2 mmHg RVSP(TR): 24.2 mmHg Ordering Physician: Alyssia Carter Referring Physician: Alyssia Carter Performed By: Veronica Gilliland, Echo Holter -[id number] Reviewed date:07/15/2024 11:25:07 AM Interpretation: Performing Lab: Notes/Report: Holter -[id number] Reviewed date:07/15/2024 11:25:07 AM Interpretation: Performing Lab: Notes/Report: Holter 7 day-[id number] Reviewed date:07/15/2024 11:25:07 AM Interpretation: Performing Lab: Notes/Report: CLIFTON Harris Cardiolite-[id number] Reviewed date:07/20/2024 03:47:19 PM Interpretation: Performing Lab: Notes/Report: Reason For Referral Reason APPT 07/15/[address] GUILLORY Diagnosis 1 Unspecified atrial f ibrillation (I48.91) Referring Provider First Name Darell Referring Provider Last Name Manuel Referring Provider Speciality Family [facility] Referred Organization [facility] [place] Referred Provider Alyssia Carter Referred Address [address] [place] [address],[place],[id number], Referred Provider Specialty Cardiology Referral Priority Routine Medications Medication SIG (Take, Route, Frequency, Duration) Notes Start Date End Date Status Melatonin 3 MG 1 tablet at bedtime as needed Orally Once a day Active Reglan 10 MG 1 tablet as directed Orally once for 1 day 03/14/2024 Not-Taking Metamucil 4 in 1 Fiber 55.6 % as directed Orally 2 times a day Active Fish Oil 300 MG 1 capsule Orally Thr ee times a day Active Reglan 10 MG 1 tablet as directed Orally once for 1 day 10/28/2023 Not-Taking Flaxseed Oil 1000 MG as directed Orally daily Active Reglan 10 MG 1 tablet as directed Orally once for 1 day 03/14/2024 Not-Taking Aspirin 81 MG 1 tablet Orally Once a day Active Vitamin D 50 MCG (2000 UT) 1 tablet Orally Once a day Active Dilantin 100 MG 1 capsule Orally twi ce a day Active Calcium & Magnesium Carbonates 975-232 MG as directed Orally daily Active Vitamin B Complex - as directed Orally daily Active Vitamin C 100 MG 1 tablet Orally Once a day Active Metoprolol Tartrate 25 MG 1 tablet with food Orally Twice a day Active PreserVision AREDS 2 - as directed Orall y daily Active Selenium 50 MCG 1 tablet Orally Once a day Active Metoprolol Tartrate 100 MG 1 tablet with food Orally Twice a day Active Social History Tobacco Use: Social History Observation Description Date Details (start date - stop date) Never Smoker NA - NA Tobacco Control (Standard) Question Answer Notes Tobacco use: Nonsmoker AUDIT-C (Standard) Question Answer Notes Did you have a drink contain ing alcohol in the past year? Yes How often did you have six o r more drinks on one occasion in the past year? 2 to 4 times a month (2 points) How many drinks did you have on a typical day when you were drinking in the past year? 1 or 2 drinks (0 point) How often did you have a dri nk containing alcohol in the past year? Never (0 point) Points 2 Interpretation Negative Problems Problem Type SNOMED Code ICD Code Onset Dates Problem Status W/U Status Risk Notes Problem Atrial fibrillation (48412455) Unspecified atrial fibrillation (I48.91) Active confirmed Problem 45779009 Constipation, unspecified constipation type (K59.00) Active confirmed Problem Atrial fibrillation (38591955) Atrial fibrillation (I48.91) Active confirmed Problem Palpitations (74330628) Palpitation (R00.2) Active confirmed Problem Chest pain (59073649) Chest pain (R07.9) Active confirmed Vital Signs Heart Rate 62 /min 07/15/2024 Height-cm 167.64 cm 08/19/2024 Oximetry 97 % 07/15/2024 Blood pressure diastolic 76 mm Hg 07/15/2024 Weight-kg 70.76 kg 08/19/2024 Height 66 in 08/19/2024 Blood pressure systolic 122 mm Hg 07/15/2024 Weight 156 lbs 08/19/2024 BMI 25.18 kg/m2 08/19/2024 Encounters Encounter Location Date Provider Diagnosis [facility] [address] [place] [address] 03/14/[address] [facility] [address] [place] [address] 03/14/2024 Muriel Perdomo [facility] [address] [place] [address] 03/15/2024 Edwin Tan [facility] [address] [place] [address] 04/18/[address] [facility] [address] [place] [address] 05/19/2024 Majo Elkins [facility] [address] [place] [address] 06/01/2024 [facility] [address] [place] [address] 06/23/2024 [facility] [address] [place] [address] 07/22/2024 [facility] [address] [place] [address] 07/22/2024 [facility] [address] [place] [address] 07/26[facility]2024 [facility] [address] [place] [address] 08/01/2024 [facility] [address] [place] [address] 08/03/2024 [facility] [address] [place] [address], [place] [address] 08/05/2024 [facility] [address] [place] [address] 08/09/2024 [facility] [address] [place] [address], [place] [address] 07/15/2024 Akihiro Emma Chest pain R07.9 ; Palpitation R00.2 and Atrial fibrillation I48.91 [facility] [address] [place] [address], [place] [address] 08/19/2024 Akinhro Emma Chest pain R07.9 ; Palpitation R00.2 and Atrial fibrillation I48.91 [facility] [address] [place] [address], [place] [address] 07/26/2024 [facility] [address] [place] [address], [place] [address] 08/01/2024 [facility] [address] [place] [address], [place] [address] 08/01/2024 Akinhro Emma Palpitation R00.2 Assessments Encounter Date Diagnosis (ICD Code) Assessment Notes Treatment Notes Treatment Clinical Notes Section Notes 07/15/2024 Palpitation (ICD-10 - R00.2) Obtain 1 week of monitor to evaluate his A-fib burden. Holter device was applied today. Patient was instructed on number of days to wear device. Patient was instructed that there device is water resistant. They can wear the device in the shower as long as the device itself does not become submerged in water. There are extra patches in the kit provided dressing changes were reviewed today if needed. The importance of shipping their device back was stressed. Patient will need to replace the device into the box and take this to the nearest UPS dropbox. We will contact them with results once the report is received. EKG in office today indication is history of A-fib s/p watchman palpitation chest pain findings are sinus bradycardia heart rate is 59 borderline first-degree AV block 07/15/2024 Chest pain (ICD-10 - R07.9) Talked about benefit of echocardiogram, CT calcium score, nuclear stress test for evaluation of ischemic cause of heart A-fib. He is 85 years old, obtain chemical stress test. EKG in office today indication is history of A-fib s/p watchman palpitation chest pain findings are sinus bradycardia heart rate is 59 borderline first-degree AV block 08/01/2024 Palpitation (ICD-10 - R00.2) 08/19/2024 Palpitation (ICD-10 - R00.2) As far as palpitation it is associated with A-fib. She had a watchman in place in [facility] in [facility]. Continue aspirin. However he continued to have episode of A-fib at least twice a month. At this point I advised the patient to [place] back to see electrophysiology in the spring. To discuss potential option for A-fib ablation. For now continue aspirin and the metoprolol. 08/19/2024 Chest pain (ICD-10 - R07.9) Denied any more chest pain. Stress test was negative for ischemia. 07/15/2024 Atrial fibrillation (ICD-10 - I48.91) S/p Watchman procedure in October 2023 at the [place]. Continue aspirin and metoprolol. He reported frequent episode of palpitation. Obtain 1 week of monitor. Will consider referral for electrophysiology for ablation procedure. EKG in office today indication is history of A-fib s/p watchman palpitation chest pain findings are sinus bradycardia heart rate is 59 borderline first-degree AV block 08/19/2024 Atrial fibrillation (ICD-10 - I48.91) S/p Watchman procedure and a [facility] back in October 2023. Continue aspirin and metoprolol. His time to go to see electrophysiology for potential A-fib ablation. 08/19/2024 Other Maddy Javed, am scribing for Alyssia Carter MD. Alyssia Javed MD, personally performed the services prescribed in this documentatio n, as scribed by Maddy Oliveira and it is both accurate and complete. Plan Of Treatment Pending Test Test Name Order Date Electrocardiogram (EKG) - 17417 07/15/[address] Cardiac Scoring Diagnostic-[id number] 07/01 Insurance Providers Payer Name Payer Address Payer Phone Subscriber Number Group Number Insured Name Patient Relationship to Insured Coverage Start Date Coverage End Date [place] [address] [address] [place] [address] [id number] Adithya Rees Self - patient is the insured [facility] Medicare Supplement [address] [place] [address] [id number] Adithya Rees Self - patient is the insured Medical (General) History Medical History History ICD Code Atrial Fibrillation Arthritis Epilepsy cataracts covid vacc Surgical History Surgery Date(Month/Year) left rotator cuff repair x3 2001 right hip replacement 2017 urolift procedure 2017 watchman 2023 Hospitalization History Reason Date(Month/Year) A-FIB SPIKE 07/2024
--- OUTSIDE RECORDS SUMMARY | 2025-03-08 14:38 | XMS_ITS | Clinical Summary ---
Author Organization [facility] (Formerly [facility])[3] Romeo rubio Tony Address [address] [place] [address] Phone Care Team Providers Care Laboratory Analyst Name Role Phone Bianca Moore MD, Inocencio Brady Primary Care Provider Allergies Active Allergy Reactions Criticality Noted Date Comments Unclassified Drug Other (See Comments) 09/30/19 11 Opthalmic steroid caused increased pressure. Medications phenytoin sodium extended release (DILANTIN EXTENDED) 100 mg Oral capsule Take 100 mg by mouth 2 times daily. Active ANTIOX #8/OM3/DHA/EPA/ LUT/ZEAX (PRESERVISION AREDS 2 ORAL) Active doxycycline hyclate (VIBRAMYCIN) 100 mg capsuleIndicati ons:acne rosacea Take 1 Capsule (100 mg) by mouth 2 times daily Decrease dose to one capsule daily when Rosacea improves.. 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 Family History Relation Name Status Comments Maternal Grandfather Maternal Grandmother Paternal Grandfather Paternal Grandmother Social History Tobacco Use Types Packs/Day Years Used Date Smoking Tobacco: Never Alcohol Use Standard Drinks/Week Comments Yes 0.8 (1 standard drink = 0.6 oz p ure alcohol) Sex and Gender Information Value Date Recorded Sex Assigned at Not on file Legal Sex Male 12:37 PM [employer] Gender Identity Not on file Sexual Orientation Not on file Occupation Industry Job Start Date Job End Date Not on file Not on file Not on file Not on file Last Filed Vital Signs Vital Sign Reading Time Taken Comments Blood Pressure 131/83 02/14/2016 9:13 AM CDT Pulse 71 02/14/2016 9:13 AM CDT Temperature - - Respiratory Rate - - Oxygen Saturation - - Inhaled Oxygen Concentration - - Weight 74.8 kg (165 lb) 02/14/2016 9:13 AM CDT Height 175.3 cm (5' 9 ) 02/14/2016 9:13 AM CDT Body Mass Index 24.37 02/14/2016 9:13 AM CDT Plan of Treatment Health Maintenance Due Date Last Done Comments DTAP/TDAP/TD VACCINES (1 - Tdap) 1959 PNEUMOCOCCAL VACCINE 50+ YEARS (1 of 1 - PCV) 04/25/19 92 ZOSTER VACCINE (1 of 2) 1992 RSV VACCINE (60+ or ) (1 - 1-dose 75+ series) 2017 INFLUENZA VACCINE (#1) 2025 Insurance MEDICARE PART A AND B [facility] [employer] Address: [address] [place] [address] Care Teams Laboratory Analyst Relationship Specialty Start Date End Date Inocencio Valenzuela Jr., MD [address] [phone] PCP - General Family Practice 09/30/10
--- OUTSIDE RECORDS SUMMARY | 2025-03-08 14:38 | XMS_ITS | Clinical Summary ---
Author Organization [facility] Address [address] [place]: Epic Prelude ADT [place] [address] Care Team Providers Care Lighting Technician Name Role Phone Bianca Moore MD, Inocencio Brady Primary Care Provider Allergies Active Allergy Reactions Criticality Noted Date Comments Unclassified Drug Other (See Comments) 09/30/19 11 Opthalmic steroid caused increased pressure. Medications doxycycline hyclate (VIBRAMYCIN) 100 mg capsule Take 1 Capsule (100 mg) by mouth 2 times daily Decrease dose to one capsule daily when Rosacea improves.. 60 Capsule 6 02/14/2016 Active phenytoin sodium extended 100 mg capsule Take 100 mg by mouth. 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 Family History Relation Name Status Comments Maternal Grandfather Maternal Grandmother Paternal Grandfather Paternal Grandmother Social History Tobacco Use Types Packs/Day Years Used Date Smoking Tobacco: Never Tobacco Cessation:Counseling Given: No Alcohol Use Standard Drinks/Week Comments Yes 0.8 (1 standard drink = 0.6 oz p ure alcohol) Sex and Gender Information Value Date Recorded Sex Assigned at Not on file Legal Sex Male 1:32 AM [employer] Gender Identity Not on file Sexual Orientation Not on file Last Filed Vital Signs Vital Sign Reading Time Taken Comments Blood Pressure 138/80 11/20/2022 10:47 AM CDT Pulse 71 02/14/2016 9:13 AM CDT Temperature - - Respiratory Rate - - Oxygen Saturation - - Inhaled Oxygen Concentration - - Weight 74.8 kg (165 lb) 11/20/2022 10:47 AM CDT Height 175.3 cm (5' 9 ) 09/26/2022 10:10 AM STORE MGR Body Mass Index 24.37 09/26/2022 10:10 AM STORE MGR Plan of Treatment Health Maintenance Due Date Last Done Comments DTAP/TDAP/TD VACCINES (1 - Tdap) 1961 PNEUMOCOCCAL VACCINE 50+ YEARS (1 of 1 - PCV) 04/25/19 92 ZOSTER VACCINE (1 of 2) 1992 RSV VACCINE (60+ or ) (1 - 1-dose 75+ series) 2017 INFLUENZA VACCINE (#1) 2025 Insurance MEDICARE PART A AND B [facility] [id number] Care Teams Lighting Technician Relationship Specialty Start Date End Date Inocencio Valenzuela Jr., MD [address] [phone] PCP - General Family Practice 09/30/10
--- OUTSIDE RECORDS SUMMARY | 2025-03-08 14:38 | XMS_ITS ---
Author Organization Unknown Vital Signs BpStanding BpSitting BpSupine Date Temperature HeartRate Weight Hei ght Spo2 Respiration Bmi HeadCircumference FieldCount TimeRecorded NeckCircumferen ce WaistCircumference Pulse 112/60 05/09 00:00 :00 97.7 151,16. 00 5,7 99 23.8 00:00 58 122/80 01/30 00:00 :00 97 156,0.0 0 5,7 93 24.4 00:00 57 120/74 09/14 00:00 :00 98.5 176,0.0 0 5,7 98 27.6 00:00 84 132/78 09/15 00:00 :00 97.2 156,0.0 0 5,7 95 24.4 00:00 54 128/80 09/05 00:00 :00 98.2 157,16. 00 5,7 97 16 24.7 00:00 68 126/72 09/27 00:00 :00 97.6 157,16. 00 5,7 97 24.7 00:00 60 122/60 12/14 00:00 :00 97.6 156,0.0 0 5,7 99 24.4 00:00 83 122/70 10/03 00:00 :00 97.8 156,0.0 0 5,7 99 24.4 00:00 58 105/60 06/28 00:00 :00 96.3 151,16. 00 5,7 97 23.8 00:00 62 112/60 03/28 00:00 :00 97.9 153,16. 00 5,7 97 24.1 00:00 60 112/66 07/25 00:00 :00 97.8 156,0.0 0 5,7 96 24.4 00:00 60 116/62 06/09 00:00 :00 97.7 156,16. 00 5,7 97 24.6 00:00 71 120/78 09/08 00:00 :00 97.3 156,16. 00 5,7 98 24.6 00:00 58 120/80 08/11 00:00 :00 97.2 156,16. 00 5,7 97 24.6 00:00 67 122/78 01/24 00:00 :00 97.1 155,0.0 0 5,7 96 24.3 00:00 56 118/62 01/17 00:00 :00 97.5 156,0.0 0 5,7 97 24.4 00:00 62 130/70 12/16 00:00 :00 97.9 156,16. 00 5,7 98 16 24.6 00:00 68
--- NOTE | 2025-03-08 14:39 | ECG_ITS ---
[facility] Test Date: 2025-03-08 Pat Name: Jesus Avilez Department: Room: Gender: Male Healthcare Translator: : 1940 Requested By: Jorge Cao Order Number: [id number] Yvette MD: Jens Turner M.D. Measurements Intervals [place] Rate: 110 P: 0 MT: 0 QRS: 7 QRSD: 98 T: 86 QT: 293 QTc: 397 Interpretive Statements ATRIAL FIBRILLATION WITH RAPID VENTRICULAR RESPONSE NONSPECIFIC T-WAVE ABNORMALITY ABNORMAL RHYTHM ECG Compared to ECG 01/15/2025 00:31:33 T-wave abnormality now present Sinus rhythm no longer present First degree AV block no longer present Electronically Signed On 03-08-2025 20:01:14 CDT by Jens Turner M.D. [email or web address]
--- OUTSIDE RECORDS SUMMARY | 2025-03-08 14:39 | XMS_ITS | Data Portability ---
Author Organization [facility] Address [address] [place] [address] Care Team Providers Care Law Firm Partner Name Role Phone KRISTEL JACKSON Primary Care Provider Unavailabl e Assessment Encounter Date Assessment Date Assessment LastModified by Organization Details LastModified Time 01/17/2025 01/17/2025 apparently went through cardioversion 3 days ago. he is ignoring er advice to reduce his metoprolol to 25 mg when starting the diltiazem. he is taking 50 mg metoprolol ER daily. his HR has been 60-75. Not available 01/17/2025 12:07:46 Plan of Treatment Reminders Order Date Submit Date Provider Last Modified By Organization Details Last Modified Time Details Appointments None recorded. Lab urinalysis, complete 2024 025 [facility], [address] [place] [address] [place], [address], 12:33:16 culture, urine 2024 025 [facility], [address] [place] [address], [facility] [address] [place], [address], 19:22:00 Referral None recorded. Procedures None recorded. Surgeries None recorded. Imaging electrocard iogram 2024 025 [email or web address] [facility] ([facility]), [address] [place], [address], 15:49:11 Medication Orders cephalexin 500 mg capsule 2024 025 [facility], [address], [place], [address], 10:54:55 Patient TargetsNo targets recorded. Patient InstructionsNo instructions recorded. Reason for Referral None Reported. Results Created Date Observation Date Name Description Value Unit Range Abnormal Flag Note LastModifiedBy Organization Detail LastModifiedTime 01/18/2001/17/2025 URINA LYSIS WITH MICRO color YELLOW Not Available [facility] [address], [place], [address], 01/17/2025 12:33:16 01/18/20 25 01/17/2025 URINA LYSIS WITH MICRO clarity CLEAR Not Available [facility] [address], [place], [address], 01/17/2025 12:33:16 01/18/20 25 01/17/2025 URINA LYSIS WITH MICRO glu NEGATI VE Not Available [facility] [address], [place], [address], 01/17/2025 12:33:16 01/18/20 25 01/17/2025 URINA LYSIS WITH MICRO bili NEGATI VE Not Available [facility] [address], [place], [address], 01/17/2025 12:33:16 01/18/20 25 01/17/2025 URINA LYSIS WITH MICRO ket NEGATI VE Not Available [facility] [address], [place], [address], 01/17/2025 12:33:16 01/18/20 25 01/17/2025 URINA LYSIS WITH MICRO S.g 1.010 1.005- 1.025 Not Available [facility] [address], [place], [address], 01/17/2025 12:33:16 01/18/20 25 01/17/2025 URINA LYSIS WITH MICRO pH 6.0 5.0-7. 0 Not Available [facility] [address], [place], [address], 01/17/2025 12:33:16 01/18/20 25 01/17/2025 URINA LYSIS WITH MICRO pro NEGATI VE Not Available [facility] [address], [place], [address], 01/17/2025 12:33:16 01/18/20 25 01/17/2025 URINA LYSIS WITH MICRO uro 0.2 E.U./D L Not Available [facility] [address], [place], [address], 01/17/2025 12:33:16 01/18/20 25 01/17/2025 URINA LYSIS WITH MICRO nit NEGATI VE Not Available [facility] [address], [place], [address], 01/17/2025 12:33:16 01/18/20 25 01/17/2025 URINA LYSIS WITH MICRO blo NEGATI VE Not Available [facility] [address], [place], [address], 01/17/2025 12:33:16 01/18/20 25 01/17/2025 URINA LYSIS WITH MICRO abraham NEGATI VE Not Available [facility] [address], [place], [address], 01/17/2025 12:33:16 01/18/20 25 01/17/2025 URINA LYSIS WITH MICRO WBC 0-1 Not Available [facility] [address], [place], [address], 01/17/2025 12:33:16 01/18/20 25 01/17/2025 URINA LYSIS WITH MICRO RBC 0-1 Not Available [facility] [address] [facility] [address], [place], [address], 01/17/2025 12:33:16 01/18/20 25 01/17/2025 URINA LYSIS WITH MICRO epi cells NEGATI VE Not Available [facility] [address] [facility] [address], [place], [address], 01/17/2025 12:33:16 01/18/20 25 01/17/2025 URINA LYSIS WITH MICRO bacteria NEGATI VE Not Available [facility] [address] [facility] [address], [place], [address], 01/17/2025 12:33:16 01/18/20 25 01/17/2025 URINA LYSIS WITH MICRO other NG Not Available [facility] [address] [facility] [address], [place], [address], 01/17/2025 12:33:16 01/18/20 25 01/18/2025 CULTU RE, URINE , ROUTI NE culture, urine, routine SEE NOTE CULTU RE, URINE , ROUTI NE Micro Numbe r: [id number] Test Statu s: Final Speci men Sourc e: Urine Speci men Quali ty: Adequ ate Resul t: No Growt h Not Available [facility] [address] [place], [address], 01/18/2025 19:22:00 01/31/20 25 01/30/2025 elect rocar diogr am No observ ation record ed. [email or web address] [facility] ([facility]) [address] [place], [address], 01/30/2025 16:09:51 02/02/20 25 01/30/2025 elect rocar diogr am No observ ation record ed. [facility] ([facility]) [address] [place], [address], 02/01/2025 16:44:56 Result Notes None recorded. Problems Name Problem SNOMED Code Status Onset Date Resolution Date Notes Provider Name and Address Organization Details Recorded Time Benign prostatic hyperplasi a 447919481 Active 2022 BPH with urinary obstruct ion; 10/31/19 23 9:58AM by Sarah Taylor RN, Office Visit; Promoted ; acuity set as *; CECILE reilly [facility] 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 3 10:46:31 Atrial fibrillati on with rapid ventricula r response 389443757023 109 Active 2022 CECILE reilly [facility] 4 10:49:47 Chest pain 77550293 Active 2024 Sarah reilly [facility] 5 14:31:47 Problem Notes None recorded. Procedures Surgical History Date Name Laterality Status Provider Name and Address Organization Details Recorded Time 08/01/20 24 cardiovascular stress testing completed CECILE DAY [facility] 08/05/2024 11:09:31 07/01/20 18 total replacement of hip completed CECILE DAY [facility] 05/21/2023 10:59:02 left atrial appendage closure completed Kristel Jackson MD [address] [place], [address], [facility] 06/09/2024 09:43:25 cardiac ablation for atrial fibrillation completed CECILE DAY [facility] 12/14/2024 12:07:15 [facility] 10:59:28 tonsillectomy completed [facility] Evin 05/21/2023 10:59:37 arthroscopy of knee [facility] 05/21/2023 10:59:54 Imaging Results None recorded. Procedure Notes None recorded. Medical Equipment None Reported. Allergies No known drug allergies Medications Name Sig Start Date Stop Date Status Note LastModified by Organization Details LastModified Time Miralax 17 gram/dose oral powder Take 17 g by oral route for 14 days. 05/21 completed Not Available Not Available Not Available doxycycli ne hyclate 100 mg capsule Take 1 capsule twice a day by oral route. 08/04 completed Not Available Not Available Not Available azithromy jori 250 mg tablet TAKE 2 TABLETS BY MOUTH ON DAY 1, AND THEN TAKE 1 TABLET BY MOUTH ONCE A DAY ON DAY 2 THROUGH DAY 5 09/27 completed Not Available Not Available Not Available aspirin 325 mg tablet Take 1 tablet every day by oral route. 03/16 completed Not Available Not Available Not Available metoprolo l tartrate 100 mg tablet TAKE 1 TABLET BY MOUTH TWICE DAILY 01/17 completed Not Available Not Available Not Available prednison e 20 mg tablet TAKE 2 TABLETS BY MOUTH IN THE MORNING ONCE DAILY WITH FOOD FOR 5 DAYS THEN 1 TAB DAILY 08/11 completed Not Available Not Available Not Available Milk of Magnesia 400 mg/5 mL oral suspensio n 2 tablespo ons once with dulcolax supposit ories. repeat once in 4 hours if no large result 05/21 completed Not Available Not Available Not Available clopidogr el 75 mg tablet TAKE 1 TABLET BY MOUTH ONCE DAILY 06/09 completed Not Available Not Available Not Available ciproflox acin 500 mg tablet TAKE 1 TABLET BY MOUTH EVERY 12 HOURS FOR 5 DAYS 06/09 completed Not Available Not Available Not Available sulfameth oxazole 800 mg-trimet hoprim 160 mg tablet TAKE 1 TABLET BY MOUTH EVERY 12 HOURS FOR 10 DAYS 01/04 completed Not Available Not Available Not Available aspirin 81 mg tablet,de layed release Take 1 tablet every day by oral route. active Not Available Not Available No t Available ondansetr on 8 mg disintegr ating tablet Place 1 tablet twice a day by translin gual route for 5 days. 06/05 completed Not Available Not Available Not Available Dulcolax (bisacody l) 10 mg rectal supposito ry take 2 pr with your M.O.M. X 1 repeat in 4 hours if no signific ant result once only 05/21 completed Not Available Not Available Not Available methenami ne hippurate 1 gram tablet TAKE 1 TABLET BY MOUTH TWICE DAILY BEGINNIN G AFTER COMPLETI NG ANTIBIOT IC. TAKE 1000MG OF VITAMIN C WITH EACH DOSE OF METHENAM INE 12/09 completed Not Available Not Available Not Available cephalexi n 500 mg capsule Take 1 capsule twice a day by oral route for 5 days. 01/17 completed Not Available Not Available Not Available neomycin- polymyxin -dexameth 3.5 mg/mL-10, 000 unit/mL-0 .1% eye drops INSTILL 1 DROP INTO LEFT EYE 4 TIMES DAILY FOR 7 DAYS 10/12 completed Not Available Not Available Not Available tobramyci n 0.3 % eye drops 09/14 completed Not Available Not Available Not Available flecainid e 50 mg tablet TAKE 1 TABLET BY MOUTH EVERY 12 HOURS active Not Available Not Available No t Available flecainid e 100 mg tablet TAKE 1/2 (ONE-QIANA F) TABLET BY MOUTH EVERY 12 HOURS FOR 30 DAYS 12/14 completed Not Available Not Available Not Available metoprolo l tartrate 50 mg tablet Take 1 tablet twice a day by oral route. 11/01 completed Not Available Not Available Not Available diclofena c sodium 75 mg tablet,de layed release 01/04 completed Not Available Not Available Not Available metoprolo l succinate ER 25 mg tablet,ex tended release 24 hr TAKE 1 TABLET BY MOUTH ONCE DAILY active Not Available Not Available No t Available azelastin e 137 mcg (0.1 %) nasal spray USE 2 SPRAY(S) IN EACH NOSTRIL TWICE DAILY FOR 14 DAYS 12/14 completed Not Available Not Available Not Available methylpre dnisolone 4 mg tablets in a dose pack TAKE BY MOUTH DIRECTED ON INSIDE OF PACKAGE 02/10 completed Not Available Not Available Not Available diltiazem 30 mg tablet TAKE 1 TABLET BY MOUTH EVERY 8 HOURS active Not Available Not Available No t Available cefdinir 300 mg capsule TAKE 1 CAPSULE BY MOUTH TWICE DAILY 01/24 completed Not Available Not Available Not Available doxycycli ne hyclate 100 mg tablet 01/04 completed Not Available Not Available Not Available metoclopr amide 10 mg tablet 03/16 completed Not Available Not Available Not Available amoxicill in 875 mg-potass ium clavulana te 125 mg tablet Take 1 tablet every 12 hours by oral route for 7 days. 09/27 completed Not Available Not Available Not Available metoprolo l tartrate 25 mg tablet TAKE ONE ADDITION AL TABLET BY MOUTH AT THE ONSET OF RAPID HEART RATE 08/11 completed Not Available Not Available Not Available Dilantin two times daily 05/21 completed requests and feels he requires brand name only please do not substitu te. AM/sd; 436; Recorded 03/07/20 22 10:00AM by Senait Fine (i tanner through Kristel Jackson MD), Refill Request; Refill Quantity : 180; Capsule; Not Available Not Available Not Available ibuprofen as needed 05/21 completed 0; Recorded 10/31/19 23 9:58AM by Sarah Taylor RN, Office Visit; Not Available Not Available Not Available Metamucil daily active 0; Recorded 10/31/19 23 9:58AM by Sarah Taylor RN, Office Visit; Not Available Not Available Not Available peg 3350-elec trolytes 236 gram-22.7 4 gram-6.74 gram-5.86 gram solution 03/16 completed Not Available Not Available Not Available Mucinex 1,200 mg tablet, extended release Take 1 tablet twice a day by oral route for 10 days. 12/14 completed Not Available Not Available Not Available Dilantin Extended 100 mg capsule TAKE 1 CAPSULE BY MOUTH TWICE DAILY active Not Available Not Available No t Available diclofena c 1 % topical gel APPLY 2 GRAMS TO THE AFFECTED AREA(S) BY TOPICAL ROUTE 4 TIMES PER DAY 03/16 completed Not Available Not Available Not Available levetirac etam ER 750 mg tablet,ex tended release 24 hr Take 1 tablet every day by oral route for 90 days. 10/20 completed Not Available Not Available Not Available Eliquis 5 mg tablet 10/20 completed Not Available Not Available Not Available Artificia l Tears (cmc) active Not Available Not Available Not Available Vitals Date Recorded Body height Body mass index (BMI) Body weight Oxygen saturation Oxygen saturation in Arterial blood by Pulse oximetry Heart rate Respiratory rate Body temperature Systolic And Diastolic Provider Name and Address Organization Details Last Updated DateTime 5 170.18 cm 24.6 kg/m2 63561 g 98 % 98 % 68 /min 16 /min 97.9 [degF] 130/70 mm[Hg] Stacey Rosa [facility] 5 12:52:48 Date Recorded Body height Body mass index (BMI) Body weight Body temperature Heart rate Oxygen saturation Oxygen saturation in Arterial blood by Pulse oximetry Systolic And Diastolic Provider Name and Address Organization Details Last Updated DateTime 5 170.18 cm 24.4 kg/m2 43517.4 1 g 97.5 [degF] 62 /min 97 % 97 % 118/62 mm[Hg] CECILE DAY [facility] 5 10:53:00 Date Recorded Body height Body mass index (BMI) Body weight Body temperature Heart rate Oxygen saturation Oxygen saturation in Arterial blood by Pulse oximetry Systolic And Diastolic Provider Name and Address Organization Details Last Updated DateTime 5 170.18 cm 24.3 kg/m2 03066.8 2 g 97.1 [degF] 56 /min 96 % 96 % 122/78 mm[Hg] Sarah Robb [facility] 5 11:05:19 Date Recorded Body height Body mass index (BMI) Body weight Body temperature Heart rate Oxygen saturation Oxygen saturation in Arterial blood by Pulse oximetry Systolic And Diastolic Provider Name and Address Organization Details Last Updated DateTime 5 170.18 cm 24.4 kg/m2 88070.4 1 g 97 [degF] 57 /min 93 % 93 % 122/80 mm[Hg] Sarah Robb [facility] 5 14:30:04 Social History Question Answer Notes LastModified by [email or web address] Details LastModified Time Tobacco Smoking Status Never Smoker CECILE reilly [facility] 12/09/2022 11:09:09 What Was The Date Of Your Most Recent Tobacco Screening? 01/24/2025 Information not available 01/24/2025 Have You Ever Been Counseled For Unhealthy Alcohol Use? No [email or web address] Information not available 12/09/2022 Sex: Unknown Functional Status Question Answer Note LastModified by [employer] Details LastModified Time Do you use any illicit or recreational drugs? No Information not available 02/11/2024 Do you or have you ever used any other forms of tobacco or nicotine? No [email or web address] Information not available 05/21/2023 What is your level of alcohol consumption? None Information not available 02/11/2024 Do you or have you ever used any nicotine-free cigarettes, vape, or chewing tobacco? No [email or web address] Information not available 03/16/2024 Mental Status None recorded. Family History Relationship Description Onset Age of this Age Resolved Age Notes LastModified by Organization Details LastModified Time Father Malignant tumor of oral cavity Not available 10:47:20 Father Alcoholism [email or web address] Not avail able 05/21/2023 10:47:26 Sister Asthma [email or web address] Not available 05/21/2023 10:47:32 Medical History No medical history recorded. Immunizations Vaccine Type Date Status Note Provider Nam e and Address Organization Details Recorded Time COVID-19, mRNA, LNP-S, PF, 30 mcg/0.3 mL dose 09/28/2020 completed CECILE reilly [facility] 05/21/2023 10:44:40 COVID-19, mRNA, LNP-S, PF, 30 mcg/0.3 mL dose 10/26/2020 completed CECILE reilly, [facility] 05/21/2023 10:44:40 COVID-19, mRNA, LNP-S, PF, 30 mcg/0.3 mL dose 06/04/2021 completed Not Available [facility] 11:15:10 COVID-19, mRNA, LNP-S, PF, 30 mcg/0.3 mL dose 05/28/2021 completed CECILE reilly, [facility] 05/21/2023 10:44:40 COVID-19, mRNA, LNP-S, PF, 30 mcg/0.3 mL dose, bhavana-sucrose 12/24/2021 completed CECILE reilly [facility] 05/21/2023 10:44:40 COVID-19, mRNA, LNP-S, bivalent, PF, 30 mcg/0.3 mL dose 05/20/2022 completed CECILE reilly, [facility] 05/21/2023 10:44:40 Past Encounters Encounter ID Performer Location Encounter Start Date Encounter Closed Date Diagnosis/Indication Diagnosis SNOMED-CT Code Diagnosis ICD10 Code Diagnosis Note [id number] Kristel Jackson MD [facility] ([facility]) [address] [place] [id number] 5 12/09/2022 10:52:34 12/15/2022 15:23:49 Abdominal pain 12330788 R10.9 Pain in scrotum 33435438 N50.82 germán has had multiple urology evaluaiton s for scrotal irritation . he relates it as a rash and when the urologists and dermatolog ist cannot see a visible rash and am not sure what he is describing , he and they get frustrated . this has been going on for a few years and he has seen myself, a dermatolgi st and multiple urologists . he has had imaging of the scrotum etc. no identifyin g cause has been found. what he really experience s is more of a nerve related pain/sensa tion that he describes as itchy or burning sometimes so bad he cannot sleep. he is averse to just doing trials of medication without an answer such as tricyclics or gabapentin etc. he has multiple possible causes of nerve related pain in the scrotum and i think this may ultimately be the diagnosis. hewas referred to [facility] urology which told him they could not help and he shoud see [facility] . unfortunat preeti he has not heard from that referral whch he was told was initiated in august. so, i will askf or the same. 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 we have change systems and data port is nt completed but we will try to collect all of this as well. [id number] Kristel Jackson MD [facility] ([facility]) [address] [place] [id number] 02/19/2023 13:39:35 02/19/2023 14:48:23 Constipation 92160337 K59.00 Taking Metamucil [id number] JOSE VENCES NP [facility] ([facility]) [address] [place] [id number] 5 04/02/2023 11:53:44 04/02/2023 14:58:29 Viral screening 500390036 Z11.52 Negative test in clinic todayDiscu ssed if any symptoms start to return for test or perform a home test 24-48 hours after symptoms onsetIncre ase PO fluidsRetu rn to clinic if any changes, any worsening, any concernsPa tient verbalized understand ing of plan [id number] Kristel Jackson MD [facility] ([facility]) [address] [place] [id number] 5 05/21/2023 10:36:31 05/21/2023 11:43:42 Nausea 356358744 R11.0 d/c doxycyclin ef/u if recurrence of any change in urinary sx stream etc. [id number] Kristel Jackson MD [facility] ([facility]) [address] [place] [address] [id number] 5 06/02/2023 12:35:28 06/02/2023 16:41:29 Tachycardia 7473157 R00.0 Abdominal pain 86705229 R10.9 Atrial fib rillation with rapid ventricular response 5612260674 22267 I48.91 was tachycardi c at 160 on presentati on not aware of the issue. bp is stable and no secondary sx. i have asked him to allow us to drive him to the ER and he agrees. Manuela will escort him to the ER after he gets his phone from his car. she will help him with a wheelchair . I have called the ER and they are anticipati ng his arrival [id number] Kristel Jackson MD [facility] ([facility]) [address] [place] [address] [id number] 5 06/05/2023 11:12:34 06/05/2023 12:44:37 Atrial fibrillation 79856989 I48.91 I spent greater than 35 mins in counseling and answering questions on atrial fibrillati oin. all questions were answered to the patient's satisfacti on. the patient was given the opportunit y to ask additional questions and acknowledg ed he had no additional questions at this time and will call if any questions arise. [id number] Kristel Jackson MD [facility] ([facility]) [address] [place] [address] [id number] 5 06/15/2023 11:36:39 06/15/2023 11:43:06 [id number] Kristel Jackson MD [facility] ([facility]) [address] [place] [address] [id number] 07/06/2023 12:20:10 07/06/2023 14:38:11 Atrial fibrillation 09060077 I48.[address] is conferring with their neurology colleagues and will have a plan of care regarding the medicaton. he is aware dilantin will need to be tapered. 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 He will call for an appointmen t today. go to ER if chest discomfort , dyspnea, rapid heart beat, light headed/diz zywe once again over rate controllin g methods for home if needed and what to do. he understand s the plan and will call cardiology today for evaluation of rate control. [id number] Kristel Jackson MD [facility] ([facility]) [address] [place] [address] [id number] 5 08/06/2023 12:41:52 08/06/2023 14:15:41 Atrial fibrillation 59386834 I48.91 he is here to update me regarding his cardiology [employer]LY[employer] visit. roxanne álvarez, he does not have an update on rhythm control etc. he says that they didn't talk about that. [id number] FABIAN WOOD [facility] ([facility]) [address] [place] [address] [id number] 5 08/19/2023 17:14:11 09/05/2023 16:46:55 [id number] Ghulam Gee MD [facility] ([facility]) [address] [place] [address] [id number] 08/20/2023 09:31:51 08/26/2023 13:37:28 Upper respiratory infection 64588636 J06.9 [id number] Kristel Jackson MD [facility] ([facility]) [address] [place] [address] [id number] 5 09/08/2023 11:53:25 09/08/2023 14:33:40 Nocturnal epilepsy 287902953 G40.802 Atrial fibrillation 4943 6004 I48.91 he is here to update me regarding his cardiology [employer] A[employer]LYST visit. roxanne álvarez, he does not have an update on rhythm control etc. he says that they didn't talk about that. [id number] Kristel Jackson MD [facility] ([facility]) [address] [place] [address] [id number] 5 10/12/2023 11:09:46 10/12/2023 12:18:27 Nocturnal epilepsy 602155753 G40.384 [id number] Kristel Jackson MD [facility] ([facility]) [address] [place] [address] [id number] 5 10/20/2023 11:14:51 10/20/2023 12:57:40 Atrial fibrillation [id number] I48.91 we discussed ins and outs risks and benefits of watchman [id number] Kristel Jackson MD [facility] ([facility]) [address] [place] [address] [phone] 5 11/02/2023 13:10:37 11/02/2023 14:13:05 Suprapubic pain [id number] R10.30 he last needed to catheteriz e the night before last. [id number] Kristel Jackson MD [facility] ([facility]) [address] [place] [address] [phone] 5 01/05/2024 12:08:52 01/06/2024 12:53:44 Bursitis of bursa of ankle and/or foot 530024294 M76.899 on walking he over inverts due to his hip issues.i will refer to consider structural suport for the foot/ankle to prevent over rotation of the ankle on ambulating and toconsider injection if he is not improving. compressiv e sleeveice and rest the ankle [id number] Kristel Jackson MD [facility] ([facility]) [address] [place] [address] [phone] 5 02/11/2024 13:16:43 02/11/2024 14:22:17 Xerostomia [id number] K11.7 we discussed supportive tx, avoidance of acidic beverages and inquire about whether he mouth breathes with his .he has a good bit of saliva on exam today [id number] Kristel Jackson MD [facility] ([facility]) [address] [place] [address] [phone] 5 03/16/2024 10:32:45 03/16/2024 12:29:16 Atrial fibrillation 65268143 I48.91 we discussed ins and outs risks and benefits of watchman Bursitis o f bursa of ankle and/or foot [id number] M76.899 on walking he over inverts due to his hip issues.i will refer to consider structural support for the foot/ankle to prevent over rotation of the ankle on ambulating and to consider injection if he is not improving. compressiv e sleeveice and rest the ankle [id number] Kristel Jackson MD [facility] ([facility]) [address] [place] [address] [phone] 5 03/28/2024 12:14:25 03/28/2024 13:29:05 Atrial fibrillation with rapid ventricular response [id number] 19040 I48.91 f/u as neededcont inue to consult with your cardiologi st and discuss rhythm control in two weeks. [id number] Kristel Jackson MD [facility] ([facility]) [address] [place], [place] [phone] 05/09/2024 13:37:20 05/09/2024 15:00:33 Lower urinary tract symptoms 040189368 R39.9 [id number] Kristel Jackson MD [facility] ([facility]) [address] [place] [address] [phone] 5 06/09/2024 09:12:45 06/09/2024 10:44:06 Atrial fibrillation 81190858 I48.91 we discussed ins and outs risks and benefits of watchman we discussed maneuvers to lower heart rate once again. he is back to normal.it has been some time since his last spell. Atrial fib rillation with rapid ventricular response [id number] 85148 I48.91 f/u as neededcont inue to consult with your cardiologi st and discuss rhythm control in two weeks. Hoarse 61274010 R49.0 [id number] Kristel Jackson MD [facility] ([facility]) [address] [place] [address] [phone] 5 06/28/2024 09:54:21 06/28/2024 10:49:36 Atrial fibrillation with rapid ventricular response [id number] 99552 I48.91 f/u with cardiology for rhythm control in two weeks as planned. his two er visits from this past week are included [id number] Kristel Jackson MD [facility] ([facility]) [address] [place] [address] [phone] 5 07/25/2024 13:53:05 07/26/2024 22:18:34 Excessive daytime sleepiness - normal night sleep 393786349 G47.19 Atrial fib rillation with rapid ventricular response 1268230059 60992 I48.91 f/u with cardiology for rhythm control in two weeks as planned. his two er visits from this past week are included [id number] Kristel Jackson MD [facility] ([facility]) [address] [place] [address] [phone] 5 08/11/2024 11:41:41 08/11/2024 14:15:44 Atrial fibrillation with rapid ventricular response [id number] 78291 I48.91 f/u with cardiology for rhythm control in two weeks as planned. his two er visits from this past week are included. once again, we discussed extensive recommenda tions for plan of care if he has afib with rvr. we discussed signs to need to go to the ER. his recent stress test was normal. he will see his cardiologi st in 4 weeks. [id number] RENETTA VALENCIA [facility] ([facility]) [address] [place] [address] [phone] 5 09/05/2024 14:51:20 09/07/2024 12:07:34 Acute bacterial bronchitis 323048651 J20.9 Discussed use of otc medication s for symptom management .Push oral fluids and rest.If you develop fever, sob, or start feeling worse then return for re-evaluat ion. [id number] Kristel Jackson MD [facility] ([facility]) [address] [place] [address] [phone] 5 09/08/2024 12:19:13 09/08/2024 13:24:25 Acute bronchitis 65269352 J20.9 f/u if any fever productive cough dyspnea or any other concern. [id number] RENETTA VALENCIA [facility] ([facility]) [address] [place] [address] [phone] 5 09/14/2024 09:03:40 09/17/2024 10:09:12 Acute bacterial bronchitis 322484601 J20.9 Discussed use of otc medication s for symptom management .Push oral fluids and rest.If you develop fever, sob, or start feeling worse then return for re-evaluat ion. [id number] Kristel Jackson MD [facility] ([facility]) [address] [place] [address] [phone] 5 09/15/2024 10:12:31 09/15/2024 13:24:33 Atrial fibrillation with rapid ventricular response [id number] 58660 I48.91 previous planf/u with cardiology for rhythm control in two weeks as planned. his two er visits from this past week are included. once again, we discussed extensive recommenda tions for plan of care if he has afib with rvr. we discussed signs to need to go to the ER. his recent stress test was normal. he will see his cardiologi st in 4 weeks. Acute bronchitis 1632324 2 J20.9 f/u if any fever productive cough dyspnea or any other concern. Acute uppe r respiratory infection 49113569 J06.9 [id number] Kristel Jackson MD [facility] ([facility]) [address] [place] [address] [phone] 5 09/27/2024 10:49:48 09/28/2024 10:44:16 Acute upper respiratory infection 77182128 J06.9 Cough 41218269 R05.9 Atrial fib rillation with rapid ventricular response [id number] 38729 I48.91 [id number] Kristel Jackson MD [facility] ([facility]) [address] [place] [address] [phone] 5 10/03/2024 11:47:59 10/03/2024 14:39:27 Cough 58725776 R05.9 [id number] Kristel Jackson MD [facility] ([facility]) [address] [place] [address] [phone] 5 12/14/2024 11:59:24 12/14/2024 18:35:03 History of radiofrequency ablation operation for arrhythmia 869247422 Z98.772 [id number] RENETTA MEDINA [facility] ([facility]) [address] [place] [address] [phone] 5 12/16/2024 12:32:41 12/16/2024 14:36:20 Infection of toenail [id number] L60.0 Patient wishes to follow up with Dr Verduzco next week for possible partial nail removal. RTC with any new or worsening symptoms. [id number] Kristel Jackson MD [facility] ([facility]) [address] [place] [address] [phone] 5 01/17/2025 10:43:21 01/18/2025 10:09:17 Atrial fibrillation with rapid ventricular response [id number] 63594 I48.91 he should f/u with his cardiologi st/legal financial specialist . he will call to reschedule . he missed his last apt to go to the ER it sounds like. extensive counseling on medication s and next steps what ifs where and what to do in all scenarios. too much to possibly individual ly recap today Acute urin ho tract infection 461136158 N39.0 any fever go to erany urinary sx's other than fever call. [id number] Kristel Jackson MD [facility] ([facility]) [address] [place] [address] [phone] 5 01/24/2025 10:54:45 01/24/2025 16:28:46 Atrial fibrillation with rapid ventricular response 0116549608 72328 I48.91 he should f/u with his cardiologi st/legal financial specialist . he will call to reschedule . he missed his last apt to go to the ER it sounds like. extensive counseling on medication s and next steps what ifs where and what to do in all scenarios. too much to possibly individual ly recap today [id number] Kristel Jackson MD [facility] ([facility]) [address] [place] [address] [phone] 5 01/30/2025 14:04:19 02/04/2025 13:58:22 [id number] Kristel Jackson MD [facility] ([facility]) [address] [place] [address] [phone] 5 01/30/2025 14:16:36 01/30/2025 15:22:28 Chest pain 01842036 R07.9 Atypical chest pain 1025 67982 R07.89 to er if sx's recur. ekg no signs of ischemiasi nus rhythm with 1st degree av block Health Concerns Section Related Observation LastModified by Organization Detai ls LastModified Time None Recorded Concern Status LastModified by Organization Details LastModified Time None Recorded Advance Directives Directive None Recorded Payers Insurance Date Sequence Insurance Name Policy Number Policy Guillen Covered Member ID Guillen Member ID Guarantor Name 03/01/2025 [place] [employer] [place] - [id number] (MEDICARE) Germán Lovell Paramus [id number] Germán Lovell Fatmata 03/01/2025 2 [employer] (MEDICARE SUPPLEMENT) Germán Lovell Fatmata [id number] Germán Lovell Paramus 01/02/2025 2 [facility] Germán Lovell Paramus [id number] Germán Lovell Fatmata 03/01/2025 1 [place]: [place]PS Germán Lovell Paramus [id number] Germán Lovell Fatmata Notes Date Note Type Note Provider Name and Address Organization Details Recorded Time 5 text/html walk in patientpatient is here today for left big toe pain, swelling that started a couple of days ago. Hx of ingrown toenail and nail fungus. Usually sees Dr Verduzco but he was unavailable today. MARGA BOWERS, [facility] [address] [place] [address], [phone], [facility], L.LAnnabellaC. 12/16/2024 14:18:21 5 text/html Atrial FibrillationReported bypatient.Associated Symptoms:no dyspnea; no awareness of palpitation; not tachycardic;dizzinessNote s:Patient was admitted to [facility] for a. fib. He was transferred from the ER at [facility]. He was admitted for 3 days. He was d/c from the hospital on Thursday and then Thursday evening he went back to the ER after his HR went up to 150. He was found to have a UTI as well while he was there. He was not having any UTI sxs at that time. He continues to take his prescribed ABX. Patient was prescribed flecainide and metoprolol ER at [facility], and then Thursday evening at the ER he was placed on diltiazem and cefdinir. No [facility] records are ever fwd with pt discharges so i will ask him to sign a release today. no f/u apt with cardiology/ep was made apparently. however i cannot confirm thi iit is just Germán's recollection. records from his 2 separate ER visits reviewed and d/w with Germán today. I spent greater than 35 mins in counseling and answering questions on atrial fibrillation, his recent evaluations and medicaton changes. all questions were answered to the patient's satisfaction. the patient was given the opportunity to ask additional questions and acknowledged he had no additional questions at this time and will call if any questions arise. Kristel Jackson MD [address] [place] [address], [phone], [facility], L[facility] 01/17/2025 12:08:23 5 text/html Atrial FibrillationReported bypatient.Associated Symptoms:no dyspnea; no awareness of palpitation; not tachycardic;dizzinessNote s:Patient was admitted to [facility] for a. fib. He was transferred from the ER at [facility]. He was admitted for 3 days. He was d/c from the hospital on Thursday and then Thursday evening he went back to the ER after his HR went up to 150. He was found to have a UTI as well while he was there. He was not having any UTI sxs at that time. He continues to take his prescribed ABX. Patient was prescribed flecainide and metoprolol ER at [facility], and then Thursday evening at the ER he was placed on diltiazem and cefdinir. Pt states his HR has not spiked since his last appt. He has a little nausea today. He is not having any UTI symptoms otherwise. he will see cardiology (EP) in one month now and will return his heart monitor on Thursday. his HR has been 59-70 at rest Pt is here for a 1 week f/u from his hospital f/u. Kristel Jackson MD [address] [place] [address], [phone], [facility] 01/24/2025 11:24:00 5 text/html Pt states he did some light exercise this morning and didn't feel well afterwards. He began to get light headed and have left sided chest pain. He is currently having the chest pain. He is not currently short of breath. he felt the discomfort afterward (he was doing cable pull downs and rows.) he had not done these in quite some time or very sporadically over the last month just a few times he corrects. his breathing was normal. he reports no abnormal HR/palpitations at the time. it was 70-72 (plus) he will monitor bp and hrsats were 95 plus during the spell. Kristel Jackson MD [address] [place] [address], [phone], [facility], Evin 01/30/2025 14:58:05
--- NOTE | 2025-03-08 14:42 | W.ED.GENADLT ---
HPI - General Adult General: Chief complaint: Arrhythmia/Palpitations Stated complaint: Chest Pain Time Seen by Provider: 03/08/25 14:35 Source: patient Mode of arrival: ambulatory Limitations: no limitations History of Present Illness: 84-year-old male with a history of A-fib states he started having palpitations just prior to arrival. States has had some slight chest discomfort states it feels like when he is in A-fib with RVR in the past. Heart rate here is of 110. Denies any shortness of breath denies any vomiting or diarrhea Associated symptoms: Reports chest pain and palpitations; Deny dyspnea, headache(s), nausea, rash or vomiting Related Data Home Medications ?Medication ?Instructions ?Recorded ?Confirmed melatonin 5 mg tablet 5 mg PO BEDTIME 06/02/23 12/20/24 omega-3 fatty acids 1,000 mg 1,000 mg PO QAM 06/02/23 12/20/24 capsule phenytoin sodium extended 100 mg 100 mg PO BID 09/06/23 12/20/24 capsule (Dilantin Extended) vit C 250 mg-vit E 90 mg-zinc 40 1 tab PO BID 09/06/23 12/20/24 mg-copper 1 [id number] capsule (PreserVision AREDS-2) aspirin 81 mg tablet,delayed 81 mg PO DAILY 01/01/24 12/20/24 release Previous Rx's ?Medication ?Instructions ?Recorded metoprolol tartrate 100 mg tablet 100 mg PO BID #60 tabs 09/17/24 cefdinir 300 mg capsule 300 mg PO BID #14 caps 01/15/25 diltiazem HCl 30 mg tablet 30 mg PO Q8H #30 tabs 01/15/25 Allergies Allergy/AdvReac Type Severity Reaction Status Date / Time levetiracetam (From [facility]) Allergy ADR-Halluci Verified 03/08/25 14:43 nating Review of Systems Const: Denies: fever(s), chills, body aches or change in appetite Eyes: Denies: eye discomfort ENMT: Denies: throat pain or dental pain Card: Reports: chest pain and palpitations Resp: Denies: dyspnea GI: Denies: abdominal pain, nausea, vomiting or diarrhea : Denies: dysuria Musc: Denies: neck pain or back pain Skin/Breast: Denies: rash Neuro: Denies: headache(s) PFSH ED PFSH: Medical History Anxiety Atrial fibrillation with rapid ventricular response Atrial fibrillation, new onset Urethral stricture Lower urinary tract symptoms (LUTS) Surgical History Hx of tonsillectomy H/O arthroscopy of knee left History of carpal tunnel release left H/O rotator cuff surgery left Family History Father , at age 63 Cancer tongue Mother , at age 64 Lung disease Social History Smoking and tobacco/nicotine status: never used tobacco/nicotine Alcohol intake: current Alcohol intake frequency: 0-2 Drinks per Day Marital status: Current occupational status: retired Physical Exam Const: COMMON NORMALS: no acute distress, patient oriented x3 and healthy appearing HENMT: COMMON NORMALS: normocephalic and atraumatic HEAD & SCALP: normocephalic and atraumatic Eye: COMMON NORMALS: conjunctivae normal CONJUNCTIVA: Yes conjunctivae normal Neck/C-Spine: COMMON NORMALS: full ROM and supple Chest: COMMONS NORMALS: normal inspection of the chest Resp: COMMON NORMALS: normal respiratory effort and clear to auscultation bilaterally AUSCULTATION: clear to auscultation bilaterally Cardio: COMMON NORMALS: No murmurs present (Cardio) RATE: tachycardic RHYTHM: abnormal rhythm irregularly irregular GI: COMMON NORMALS: Normal to inspection, nondistended, normoactive bowel sounds present, Soft to palpation, non-tender and no masses PALPATION: Yes Soft to palpation Extremity: COMMON NORMALS: normal to inspection and full ROM Neuro: COMMON NORMALS: patient oriented x3, moves all extremities and no focal motor deficits Psych: COMMON NORMALS: mental status grossly normal, Normal thought process present and cooperative THOUGHT PROCESS: Normal thought process present Skin: COMMON NORMALS: no rashes or lesions noted and no wounds GENERAL SKIN EXAM: no rashes or lesions noted Course Vital Signs: Vital signs: Vital Signs Temperature 97.7 F 03/08/25 14:34 Pulse Rate 96 03/08/25 14:34 Blood Pressure 123/90 03/08/25 14:34 Pulse Oximetry 95 03/08/25 14:34 Oxygen Delivery Me thod Room Air 03/08/25 14:34 MDM - General Adult Medical Decision Making Patient presents here in A-fib with RVR troponin here is negative no signs of acute coronary syndrome his heart rates improved to the 60s after Cardizem he feels much improved he stable for discharge follow-up PCP return if worsening. Medical Records I reviewed the patient's medical records. Lab Data I reviewed the patient's lab results. 03/08/25 14:42 03/08/25 14:42 Radiology Impressions Chest X-Ray 03/08/25 14:33 IMPRESSION: Mild left basilar atelectasis scarring versus airspace disease. Laboratory Results WBC 7.17 10^3/uL (3.29-11.43) 03/08/25 14:42 RBC 4.63 10^6/uL (3.85-5.65) 03/08/25 14:42 Hgb 15.10 g/dL (11.27-16.99) 03/08/25 14:42 Hct 45.0 % (37-53) 03/08/25 14:42 MCV 97.2 fl (82-101) 03/08/25 14:42 MCH 32.6 pg (27-33) 03/08/25 14:42 MCHC 33.6 g/dL (30-55) 03/08/25 14:42 RDW 12.9 % (12.1-15.1) 03/08/25 14:42 Plt Count 203 10^3/cmm (157-399) 03/08/25 14:42 MPV 8.5 fL (7.4-10.4) 03/08/25 14:42 Neut % (Auto) 49.2 % 03/08/25 14:42 Lymph % (Auto) 38.8 % 03/08/25 14:42 [place] % (Auto) 9.5 % 03/08/25 14:42 Eos % (Auto) 1.4 % 03/08/25 14:42 Baso % (Auto) 0.8 % 03/08/25 14:42 Neut # (Auto) 3.53 10^3/uL (1.8-7.7) 03/08/25 14:42 Lymph # (Auto) 2.8 10^3/uL (0.8-4.8) 03/08/25 14:42 [place] # (Auto) 0.7 10^3/uL (0.2-0.9) 03/08/25 14:42 Eos # (Auto) 0.1 10^3/uL (0.0-0.8) 03/08/25 14:42 Baso # (Auto) 0.1 10^3/uL (0.0-0.1) 03/08/25 14:42 Nucleated RBC % (auto) 0 % 03/08/25 14:42 Nucleated RBCs # 0.0 /100WBC 03/08/25 14:42 Sodium 137 mmol/L (136-145) 03/08/25 14:42 Potassium 4.2 mmol/L (3.5-5.1) 03/08/25 14:42 Chloride 99 mmol/L (98-107) 03/08/25 14:42 Carbon Dioxide 27 mmol/L (22-29) 03/08/25 14:42 Anion Gap 15.2 (5-19) 03/08/25 14:42 BUN 16 mg/dL (8-23) 03/08/25 14:42 Creatinine 0.8 mg/dL (0.7-1.2) 03/08/25 14:42 GFR Calculation Not Reportable 03/08/25 14:42 Glucose 107 mg/dL (65-115) 03/08/25 14:42 Calculated Osmolality 286 mOsm/kg (285-295) 03/08/25 14:42 Calcium 9.5 mg/dL (8.5-10.5) 03/08/25 14:42 Total Bilirubin 0.2 mg/dL (0.15-1.2) 03/08/25 14:42 AST 22 U/L (0-40) 03/08/25 14:42 ALT 15 U/L (0-41) 03/08/25 14:42 Alkaline Phosphatase 150 U/L (40-130) H 03/08/25 14:42 Troponin T Baseline 10 ng/L (0-15) 03/08/25 14:42 Total Protein 7.2 g/dL (6.6-8.7) 03/08/25 14:42 Albumin 4.3 g/dL (3.5-5.2) 03/08/25 14:42 Globulin 2.9 g/dL (1.3-4.6) 03/08/25 14:42 All radiology interpretation(s) finalized by discharge EKG Data EKG 1: I personally reviewed and interpreted this EKG as follows: EKG interpretation date: 03/08/25 EKG interpretation time: 14:39 Interpretation: AFIB WITH RVR hr [address] or t wave abnormalities qrs 98 qtc 358 Computer generated interpretation: Chest X-Ray 03/08/25 14:33 IMPRESSION: Mild left basilar atelectasis scarring versus airspace disease. Discharge Plan Discharge Patient Disposition: Home Clinical Impression: Atrial fibrillation Qualifiers: Atrial fibrillation type: unspecified Qualified Code(s): I48.91 - Unspecified atrial fibrillation Condition: Stable Prescriptions: No Action melatonin 5 mg Tablet 5 mg PO BEDTIME omega-3 fatty acids 1,000 mg Capsule 1,000 mg PO QAM phenytoin sodium extended [Dilantin Extended] 100 mg capsule 100 mg PO BID PreserVision AREDS-2 250-90-40-1 mg Capsule 1 tab PO BID aspirin 81 mg Tablet,Delayed Release (Dr/Ec) 81 mg PO DAILY diltiazem HCl 30 mg tablet 30 mg PO Q8H Qty: 30 0RF cefdinir 300 mg capsule 300 mg PO BID Qty: 14 0RF metoprolol tartrate 100 mg tablet 100 mg PO BID Qty: 60 0RF Discharge Orders: Discharge ED (Routine); Ordered 03/08/25 Ordered By: Jorge Cao Referrals: Darell Jackson MD [Primary Care Provider, [facility]] - 4-7 days Discharge Diet: Advance as tolerated Discharge Activity: Resume usual activity Patient Instructions: A-fib (Atrial Fibrillation) (ED) Print Language: Macedonian Coding Level of Care Code 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
[2025-03-08 14:47] LABS: Hematocrit 45.0 % (37-53); Hemoglobin 15.10 g/dL (11.27-16.99); Mean Corpuscular HGB Conc 33.6 g/dL (30-55); Mean Corpuscular Hemoglobin 32.6 pg (27-33); Mean Corpuscular Volume 97.2 fl (82-101); Nucleated Red Blood Cells % 0 %; Platelet Count 203 10^3/cmm (157-399); Red Blood Count 4.63 10^6/uL (3.85-5.65); White Blood Count 7.17 10^3/uL (3.29-11.43)
[2025-03-08] MEDS: dilTIAZem 5 mg/mL SDV 5 mL 10 MG IVP (14:58)
[2025-03-08 15:00] VITALS: BP 89/59; PULSE 71; RESP 18; O2SAT 93
[2025-03-08 15:06] LABS: Troponin(5th) Baseline 10 ng/L (0-15)
[2025-03-08 15:10] LABS: Alanine Aminotransferase 15 U/L (0-41); Albumin Level 4.3 g/dL (3.5-5.2); Alkaline Phosphatase 150 U/L (40-130); Anion Gap 15.2 (5-19); Aspartate Amino Transferase 22 U/L (0-40); Blood Urea Nitrogen 16 mg/dL (8-23); Calcium 9.5 mg/dL (8.5-10.5); Carbon Dioxide 27 mmol/L (22-29); Chloride 99 mmol/L (98-107); Creatinine Clr Calc Pharmacy 67.3400; Globulin 2.9 g/dL (1.3-4.6); Glucose 107 mg/dL (65-115); Osmolality Calculated 286 mOsm/kg (285-295); Potassium 4.2 mmol/L (3.5-5.1); Sodium 137 mmol/L (136-145); Total Protein 7.2 g/dL (6.6-8.7)
[2025-03-08 15:44] VITALS: BP 92/52; PULSE 70; RESP 14; O2SAT 95
== END 2025-03-08 15:44 | disposition home or self-care (01) ==
PROVIDERS: Emergency Provider Emergency Medicine; PCP Family Medicine
DX: I48.91 Unspecified atrial fibrillation (principal); Z79.82 Long term (current) use of aspirin
CPT/HCPCS: 71045; 80053; 84484; 85025; 93005; 96374; 99285; J3490

== ENCOUNTER 2025-07-10 23:47 | Emergency (ER) | payer MEDICARE, SELFPAY ==
--- OUTSIDE RECORDS SUMMARY | 2024-06-03 06:30 | XMS_ITS ---
Author Organization [facility] Address [address] [place] [address] Care Team Providers Care Mover Helper Name Role Phone Manuel PASCAL, Darell Primary Care Provider Alyssia Mohr Unavailable [phone] Majo Elkins Unavailable [phone] REASON FOR VISIT Change in Bowel Habits, constipation Encounters Encounter Location Date Provider Diagnosis [facility] [address] [place] [address] 06/03/2024 Majo Elkins Plan Of Treatment Next Appt Details Provider Name:Alyssia del rio, 07/11/2025 11:00:00 AM, [address], [address], Progress Notes * Jesus REES DDOB: [birth year] (85 yo M)Acc No.[id number]:06/03/2024 History and Physical Patient: Jesus Baoteng Provider: Ellen Elkins MD :1940 A ge:84 Y S ex:Male Date:06/03/2024 Address: [address], [id number] Pcp:Darell Jackson MD Subjective: * Chief Complaints: * C hange in Bowel Habits, constipation Billing Information: * Procedure Codes: * Electronic signature of Gilma Elkins MD on 07/10/2025 at 11:55 PM ON SITE COORDINATOR Sign off status: Pending * Provider: Ellen Elkins MD Date: 1 Generated for Madhu pagan/Lalo/Heber on: 1 09/09/2024 11:55 PM ON SITE COORDINATOR
--- OUTSIDE RECORDS SUMMARY | 2024-06-27 04:00 | XMS_ITS ---
Author Organization [facility] Address [address] [place] [address] Care Team Providers Care Conditioning Coach Name Role Phone Manuel PASCAL, Darell Primary Care Provider Alyssia Mohr Unavailable [phone] Majo Elkins Unavailable [phone] REASON FOR VISIT Change in Bowel Habits, constipation Encounters Encounter Location Date Provider Diagnosis [facility] [address] [place] [address] 06/27/2024 Majo Elkins Plan Of Treatment Next Appt Details Provider Name:Alyssia del rio, 07/11/2025 11:00:00 AM, [address], [address], Progress Notes * Jesus REES DDOB: [birth year] (85 yo M)Acc No.[id number]:06/27/2024 History and Physical Patient: Jesus Boateng Provider: Ellen Elkins MD :1940 A ge:84 Y S ex:Male Date:06/27/2024 Address: [address], [id number] Pcp:Darell Jackson MD Subjective: * Chief Complaints: * C hange in Bowel Habits, constipation Billing Information: * Procedure Codes: * Electronic signature of Gilma Elkins MD on 07/10/2025 at 11:56 PM [employer] Sign off status: Pending * Provider: Ellen Elkins MD Date: 1 Generated for Madhu pagan/Lalo/Heber on: 1 09/09/2024 11:56 PM [employer]
--- OUTSIDE RECORDS SUMMARY | 2024-07-18 07:30 | XMS_ITS ---
Author Organization [facility] Address [address] [place] [address] Care Team Providers Care Second Watch Sergeant Name Role Phone Manuel PASCAL, Darell Primary Care Provider Alyssia Mohr [phone] REASON FOR VISIT Afib per Dr. Jackson- 06/23/24 Encounters Encounter Location Date Provider Diagnosis [facility] [address] [place] [id number] 07/18/2024 Alyssia Carter Plan Of Treatment Next Appt Details Provider Name:Alyssia del rio, 07/11/2025 11:00:00 AM, [address] [place] [address], [phone], Progress Notes * Jesus REES DDOB: [birth year] (85 yo M)Acc No.[id number]:07/18/2024 Progress Notes Patient: Edwin zitanormaJesus Provider: Ellen Carter MD :1940 A ge:84 Y S ex:Male Date:07/18/2024 Address: [address] [id number] Pcp:Darell Jackson MD Subjective: * Chief Complaints: * A fib per Dr. Jackson- 06/23/24 * Electronic signature of Page Carter MD on 07/10/2025 at 11:56 PM MAIL DELIVERER Sign off status: Pending * Provider: Ellen Carter MD Date: 09/17/2023 Generated for Madhu pagan/Lalo/Heber on: 09/09/2024 11:56 PM MAIL DELIVERER
--- OUTSIDE RECORDS SUMMARY | 2024-07-26 02:45 | XMS_ITS ---
Author Organization [facility] Address [address] [place] [address] Care Team Providers Care Cooky Packer Name Role Phone Manuel PASCAL, Darell Primary Care Provider Alyssia Mohr [phone] Encounters Encounter Location Date Provider Diagnosis [facility] [address] [place] [address], [place] [address] 07/26/2024 Alyssia Carter Plan Of Treatment Next Appt Details Provider Name:Alyssia del rio, 07/11/2025 11:00:00 AM, [address] [place], [address], Progress Notes * Jesus REES DDOB: [birth year] (85 yo M)Acc No.[id number]:07/26/2024 Patient: Jesus Boateng Provider: Ellen Carter MD :1940 A ge:84 Y S ex:Male Date:07/26/2024 Address:[address] Pcp:Darell Jackson MD Check In:08:32 AM CSTCheck O ut:08:32 AM TUBER MACHINE CUTTER Billing Information: * Procedure Codes: * Electronic signature of Page Carter MD on 07/10/2025 at 11:55 PM TUBER MACHINE CUTTER Sign off status: Pending * Provider: Ellen Carter MD Date: 09/25/2023 Generated for Madhu pagan/Lalo/Heber on: 1 09/09/2024 11:55 PM TUBER MACHINE CUTTER
--- OUTSIDE RECORDS SUMMARY | 2024-08-01 06:45 | XMS_ITS ---
Author Organization [facility] Address [address] [place] [address] Care Team Providers Care Interpreter And Translator Name Role Phone Manuel PASCAL, Darell Primary Care Provider Alyssia Mohr [phone] Encounters Encounter Location Date Provider Diagnosis [facility] [address] [place] [address], [place] [address] 08/01/2024 Alyssia Carter Plan Of Treatment Next Appt Details Provider Name:Alyssia del rio, 07/11/2025 11:00:00 AM, [address] [place], [address], Progress Notes * Jesus REES DDOB: [birth year] (85 yo M)Acc No.[id number]:08/01/2024 Patient: Jesus Boateng Provider: Ellen Carter MD :1940 A ge:84 Y S ex:Male Date:08/01/2024 Address:[address] Pcp:Darell Jackson MD Check In:12:36 PM TOOL CHASER Billing Information: * Procedure Codes: * Electronic signature of Page Carter MD on 07/10/2025 at 11:56 PM TOOL CHASER Sign off status: Pending * Provider: Ellen Carter MD Date: 1 10/02/2023 Generated for Printi ng/Faxing/eTransmitting on: 1 09/09/2024 11:56 PM TOOL CHASER
--- OUTSIDE RECORDS SUMMARY | 2024-09-09 05:30 | XMS_ITS ---
Author Organization [facility] Address [address] [place] [address] Care Team Providers Care Field Control Inspector Name Role Phone Manuel PASCAL, Darell Primary Care Provider Alyssia Mohr [phone] REASON FOR VISIT 2 mo per 07/15/24 drk ov/lg Encounters Encounter Location Date Provider Diagnosis [facility] [address] [place] [phone] 09/09/2024 Alyssia Carter Plan Of Treatment Next Appt Details Provider Name:Alyssia del rio, 07/11/2025 11:00:00 AM, [address] [place] [address], [phone], Progress Notes * Jesus REES DDOB: 2 (85 yo M)Acc No.[id number]:09/09/2024 Progress Notes Patient: Edwin zitanormaJesus Provider: Ellen Carter MD :1940 A ge:84 Y S ex:Male Date:09/09/2024 Address: [address], [phone] Pcp:Darell Jackson MD Subjective: * Chief Complaints: * 2 mo per 07/15/24 drk ov/lg * Electronic signature of Page Carter MD on 07/10/2025 at 11:55 PM CONTRACTOR GENERAL ENGINEERING Sign off status: Pending * Provider: Ellen Carter MD Date: 0 09/09/2024 Generated for Madhu pagan/Lalo/Elvaitting on: 1 09/09/2024 11:55 PM [employer]INEER[employer]
--- OUTSIDE RECORDS SUMMARY | 2024-09-27 04:45 | XMS_ITS ---
Author Organization [facility] Address [address] [place] [address] Care Team Providers Care Community Relations Assistant Name Role Phone Manuel PASCAL, Darell Primary Care Provider Alyssia Mohr [phone] REASON FOR VISIT 2 mo per 07/15/24 drk ov/lg Encounters Encounter Location Date Provider Diagnosis [facility] [address] [place] [id number] 09/27/2024 Alyssia Carter Plan Of Treatment Next Appt Details Provider Name:Alyssia del rio, 07/11/2025 11:00:00 AM, [address] [place] [address], [phone], Progress Notes * Jesus REES DDOB: [birth year] (85 yo M)Acc No.[id number]:09/27/2024 Progress Notes Patient: Jesus Boateng Provider: Ellen Carter MD :1940 A ge:84 Y S ex:Male Date:09/27/2024 Address: [address], [phone] Pcp:Darell Jackson MD Subjective: * Chief Complaints: * 2 mo per 07/15/24 drk ov/lg * Electronic signature of Page Carter MD on 07/10/2025 at 11:55 PM COPY CENTER OPERATOR Sign off status: Pending * Provider: Ellen Carter MD Date: 0 09/27/2024 Generated for Madhu pagan/Lalo/Elvaitting on: 1 09/09/2024 11:55 PM COPY CENTER OPERATOR
[2025-07-10 23:50] VITALS: BP 140/81; PULSE 109; RESP 18; TEMP 36.3; O2SAT 94; BMI 23.5
--- OUTSIDE RECORDS SUMMARY | 2025-07-10 23:55 | XMS_ITS | Clinical Summary ---
Author Organization [facility] Address [address] 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 Gender Identity Not on file Sexual Orientation [...] cm (5' 9 ) 09/26/2022 10:10 AM METALLURGICAL TESTER Body Mass Index 24.37 09/26/2022 10:10 AM METALLURGICAL TESTER Plan of Treatment Health Maintenance Due Date Last Done Comments DTAP/TDAP/TD VACCINES (1 - Tdap) 1961 PNEUMOCOCCAL VACCINE 50+ YEARS (1 of 1 - PCV) 04/25/19 92 ZOSTER VACCINE (1 of 2) 1992 RSV VACCINE (60+ or ) (1 - 1-dose 75+ series) 2017 INFLUENZA VACCINE (#1) 2025 Insurance MEDICARE PART A AND B [facility] [id number] Care Teams Refinery Operator Helper Relationship Specialty Start Date End Date Inocencio Valenzuela Jr., MD [address] [address] PCP - General Family Practice 09/30/10
--- OUTSIDE RECORDS SUMMARY | 2025-07-10 23:55 | XMS_ITS | Clinical Summary ---
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
--- NOTE | 2025-07-10 23:56 | ECG_ITS ---
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 Measurements Intervals [place] Rate: 109 P: -85 NV: 195 QRS: -50 QRSD: 127 T: 85 QT: 376 QTc: 507 Interpretive Statements ATRIAL FIBRILLATION LEFT ANTERIOR FASCICULAR BLOCK [QRS AXIS <= -45, QR IN I, RS IN II] POSSIBLE SEPTAL MYOCARDIAL INFARCTION , OF INDETERMINATE AGE [30 ms Q WAVE IN V1/V2] Compared to ECG 03/08/2025 14:39:01 Left anterior fascicular block now present T-wave abnormality no longer present Electronically Signed On 07-12-2025 20:37:42 [employer] by Roldan Cabello M.D. [email or web address]
--- OUTSIDE RECORDS SUMMARY | 2025-07-10 23:56 | XMS_ITS | Patient Health Record ---
Author Organization [facility] Address [address] [place] [address] Care Team Providers Care Hvac Service Manager Name Role Phone Darell Jackson MD Primary Care Provider Alyssia Mohr Unavailable [phone] Majo Elkins Unavailable [phone] Allergies No Known Allergies Results Component Value Reference Range Notes NM Lexiscan Cardiolite-[id number] Reviewed date:08/02/2024 04:12:59 PM Interpretation: Performing Lab: Notes/Report: [id number]=iSite Echo Complete [id number] Reviewed date:07/29/2024 11:07:21 AM Interpretation: Performing Lab: Notes/Report: [id number]=iSite Echo Complete [id number] Reviewed date:07/15/2024 11:25:58 AM Interpretation: Performing Lab: Notes/Report: NM Lexiscan Cardiolite-[id number] Reviewed date:08/02/2024 04:12:49 PM Interpretation: Performing Lab: Notes/Report: See Below For Report NM Lexiscan Cardiolite Read See Below For Report Echo Complete EC-[id number] Reviewed date:07/29/2024 11:07:15 AM Interpretation: Performing Lab: Notes/Report: Cardiopulmonary Services Name: ADITHYA REES Study Date: 07/26/2024 : 1940 Patient Location: [facility] Age: 84 yrs Gender: Male HR: 65 [...] Referring Physician: Alyssia Carter Performed By: Veronica Gilliland Echo Holter -,[id number] Reviewed date:07/15/2024 11:25:07 AM Interpretation: Performing Lab: Notes/Report: Holter -[id number] Reviewed date:07/15/2024 11:25:07 AM Interpretation: Performing Lab: Notes/Report: Holter -241 Reviewed date:07/15/2024 11:25:07 AM Interpretation: Performing Lab: Notes/Report: CLIFTON Harris Cardiolite-[id number] Reviewed date:07/20/2024 03:47:19 PM Interpretation: Performing Lab: Notes/Report: Reason For Referral No Information Medications Medication SIG (Take, Route, Frequency, Duration) Notes Start Date End Date Status Melatonin 3 MG Tablet 1 tablet at bedtim e as needed Orally Once a day Active Reglan 10 MG Tablet 1 tablet as directed Orally once; Duration: 1 day 03/14/2024 Not-Taking Metamucil 4 in 1 Fiber 55.6 % Powder as directed Orally 2 times a day Active Fish Oil 300 MG Capsule 1 capsule Orally Three times a day Active Reglan 10 MG Tablet 1 tablet as directed Orally once; Duration: 1 day 10/28/2023 Not-Taking Flaxseed Oil 1000 MG Capsule as directed Orally daily Active Reglan 10 MG Tablet 1 tablet as directed Orally once; Duration: 1 day 03/14/2024 Not-Taking Aspirin 81 MG Capsule 1 tablet Orally On ce a day Active Vitamin D 50 MCG (2000 UT) Tablet 1 tablet Orally Once a day Active Dilantin 100 MG Capsule 1 capsule Orally twice a day Active Calcium & Magnesium Carbonates 975-232 MG Tablet as directed Orally daily Active Vitamin B Complex - Tablet as directed Orally daily Active Vitamin C 100 MG Tablet 1 tablet Orally Once a day Active Metoprolol Tartrate 25 MG Tablet 1 tablet with food Orally Twice a day Active PreserVision AREDS 2 - Capsule as directed Orally daily Active Selenium 50 MCG Tablet 1 tablet Orally O nce a day Active Metoprolol Tartrate 100 MG Tablet 1 tablet with food Orally Twice a day Active Social History Tobacco Use: Social History Observation Description Date Details (start date - stop date) Never Smoker NA - NA Social History Drugs/Alcohol: Social Info Question Answer Notes Caffeine Intake: 1-2 cups per day Drug/Alcohol: Social Info Question Answer Notes AUDIT-C (Standard) Did you have a drink containing alcohol in the past year? Yes How often did you have six or more drinks on one occasion in the past year? 2 to 4 times a month (2 points) How many drinks did you have on a typical day when you were drinking in the past year? 1 or 2 drinks (0 point) How often did you have a drink containing alcohol in the past year? Never (0 point) Points 2 Interpretation Negative Tobacco Use: Social Info Question Answer Notes Tobacco Control (Standard) Tobacco use: Nonsmoker Additional Details Category Social Info Options Details Drugs/Alcohol: Do you smoke marijuana? De nies Do you drink alcohol? No Problems Problem Type SNOMED Code ICD Code Onset Dates Problem Status W/U Status Risk Notes Problem Atrial fibrillation (55583910) Unspecified atrial fibrillation (I48.91) Active confirmed Problem Constipation (12333611) Constipation, unspecified constipation type (K59.00) Active confirmed Problem Atrial fibrillation (86753573) Atrial fibrillation (I48.91) Active confirmed Problem Palpitations (48521273) Palpitation (R00.2) Active confirmed Problem Chest pain (80560911) Chest pain (R07.9) Active confirmed Vital Signs Heart Rate 62 /min 07/15/2024 Blood pressure diastolic 76 mm Hg 07/15/2024 Oximetry 97 % 07/15/2024 Height-cm 167.64 cm 08/19/2024 Weight-kg 70.76 kg 08/19/2024 Height 66 in 08/19/2024 Blood pressure systolic 122 mm Hg 07/15/2024 Weight 156 lbs 08/19/2024 BMI 25.18 kg/m2 08/19/2024 Encounters Encounter Location Date Provider Diagnosis [facility] [address] [place] [address], [place] [address] 08/19/2024 Alyssia Phelpsshi Chest pain R07.9 ; Palpitation R00.2 and Atrial fibrillation I48.91 [facility] [address] [place] [address], [place] [address] 07/15/2024 Akihiro Emma Chest pain R07.9 ; Palpitation R00.2 and Atrial fibrillation I48.91 [facility] [address] [place] [address], [place] [address] 07/26/2024 Alyssia Carter [facility] [address] [place] [address], [place] [address] 08/01/2024 Akimananro Emma Palpitation R00.2 [facility] [address] [place] [address], [place] [address] 08/01/2024 Alyssia Cartre [facility] [address] [place] [address] 07/22/2024 [facility] [address] [place] [address] 08/09/[address] [facility] [address] [place] [address] 08/05/[address] [facility] [address] [place] [address] 08/03/2024 [facility] [address] [place] [address] 08/01/2024 [facility] [address] [place] [address] 07/26/[address] [facility] [address] [place] [address] 07/22/2024 [facility] Assessments Encounter Date Diagnosis (ICD Code) Assessment [...] She had a watchman in place in [facility]. Continue aspirin. However he continued to have episode of A-fib at least twice a month. At this point I advised the patient to yocha dehe back to see electrophysiology in the spring. To discuss potential option for A-fib ablation. For now continue aspirin and the metoprolol. 08/19/2024 Chest pain (ICD-10 - R07.9) Denied any more chest pain. Stress test was negative for ischemia. 07/15/2024 Atrial fibrillation (ICD-10 - I48.91) S/p Watchman procedure in October 2023 at the [facility]. Continue aspirin and metoprolol. He reported frequent [...] Test Name Order Date Electrocardiogram (EKG) - [id number] 07/15/[address] Cardiac Scoring Diagnostic-[id number] 07/01 Next Appt Details Provider Name:Alyssia del rio, 07/11/2025 11:00:00 AM, [address] [place] [address], [phone], Insurance Providers Payer Name Payer Address Payer Phone Subscriber Number Group Number Insured Name Patient Relationship to Insured Coverage Start Date Coverage End Date [place] [address] [address] [place] [address] [id number] Adithya Rees Self - patient is the insured [facility] Medicare Supplement [address] [place] [address] [id number] Adithya Rees Self - patient is the insured Medical (General) History Medical History History ICD Code Atrial Fibrillation Arthritis Epilepsy cataracts covid vacc Surgical History Surgery Date(Month/Year) left rotator cuff repair x3 2000 right hip replacement 2017 urolift procedure 2017 [facility] 2023 Hospitalization History Reason Date(Month/Year) A-FIB SPIKE 07/2024
--- OUTSIDE RECORDS SUMMARY | 2025-07-10 23:56 | XMS_ITS | Data Portability ---
Author Organization [facility] Address [address] [facility] [address] [place] [address] Care Team Providers Care Linux Administrator Name Role Phone KRISTEL JACKSON Primary Care Provider Unavailabl e Assessment Encounter Date Assessment Date Assessment LastModified by Organization Details LastModified Time 05/17/2025 05/17/2025 rice therapy f/u if worsening or not improving weekly. lower respiratory infeciton is significantly improved [email or web address] Not available 05/17/2025 10:11:18 Plan of Treatment Reminders Order Date Submit Date Provider Last Modified By Organization Details Last Modified Time Details Appointments None recorded. Lab respiratory pathogens DNA and RNA panel, PCR, nasopharynx 2024 025 [email or web address] [facility] ([facility]), [address] [place] [address], [address], 5 13:38:02 urinalysis, complete [address] [facility], [address] [place] [address], [address], 5 07:39:19 Referral None recorded. Procedures None recorded. Surgeries None recorded. Imaging electrocard iogram 2024 025 [email or web address] [facility] ([facility]), [address] [place], [address], 5 16:21:23 XR, knee, 3 view 2024 025 [email or web address] [facility] ([facility]), [address] [place], [address], 18:04:16 XR, chest, 2 view 2024 025 [email or web address] 5 [facility] ([facility]), [address] [place], [address], 14:03:58 Medication Orders azithromyci n 250 mg tablet 2024 025 [facility], [address], [place], [address], 13:01:19 amoxicillin 875 mg-potassiu m clavulanate 125 mg tablet 2024 025 [facility], [address], [place], [address], 05:01:15 Patient TargetsNo targets recorded. Patient InstructionsNo instructions recorded. Reason for Referral None Reported. Results Created Date Observation Date Name Description Value Unit Range Abnormal Flag Note LastModifiedBy Organization Detail LastModifiedTime 05/04/2005/04/2025 URINA LYSIS WITH MICRO color YELLOW Not Available [facility] [address] [facility] [address], [place], [address], 05/04/2025 14:20:15 05/04/2005/04/2025 URINA LYSIS WITH MICRO clarity CLEAR Not Available [facility] [address] [facility] [address], [place], [address], 05/04/2025 14:20:15 05/04/2005/04/2025 URINA LYSIS WITH MICRO glu NEGATI VE Not Available [facility] [address] [facility] [address], [place], [address], 05/04/2025 14:20:15 05/04/20 25 05/04/2025 URINA LYSIS WITH MICRO bili NEGATI VE Not Available [facility] [address], [place], [address], 05/04/2025 14:20:15 05/04/20 25 05/04/2025 URINA LYSIS WITH MICRO ket NEGATI VE Not Available [facility] [address], [place], [address], 05/04/2025 14:20:15 05/04/20 25 05/04/2025 URINA LYSIS WITH MICRO S.g 1.010 1.005- 1.025 Not Available [facility] [address], [place], [address], 05/04/2025 14:20:15 05/04/20 25 05/04/2025 URINA LYSIS WITH MICRO pH 7.0 5.0-7. 0 Not Available [facility] [address], [place], [address], 05/04/2025 14:20:15 05/04/20 25 05/04/2025 URINA LYSIS WITH MICRO pro NEGATI VE Not Available [facility] [address], [place], [address], 05/04/2025 14:20:15 05/04/20 25 05/04/2025 URINA LYSIS WITH MICRO uro 0.2 Not Available [facility] [address], [place], [address], 05/04/2025 14:20:15 05/04/20 25 05/04/2025 URINA LYSIS WITH MICRO nit POSITI VE Not Available [facility] [address], [place], [address], 05/04/2025 14:20:15 05/04/20 25 05/04/2025 URINA LYSIS WITH MICRO blo NEGATI VE Not Available [facility] [address] [facility], [place], [address], 05/04/2025 14:20:15 05/04/20 25 05/04/2025 URINA LYSIS WITH MICRO abraham 1+ Not Available [facility] [address] [facility] [address], [place], [address], 05/04/2025 14:20:15 05/04/20 25 05/04/2025 URINA LYSIS WITH MICRO WBC 80-100 Not Available [facility] [address] [facility] [address], [place], [address], 05/04/2025 14:20:15 05/04/20 25 05/04/2025 URINA LYSIS WITH MICRO RBC 0 Not Available [facility] [address] [facility] [address], [place], [address], 05/04/2025 14:20:15 05/04/20 25 05/04/2025 URINA LYSIS WITH MICRO epi cells 0 Not Available [facility] [address] [facility] [address], [place], [address], 05/04/2025 14:20:15 05/04/20 25 05/04/2025 URINA LYSIS WITH MICRO bacteria 1+ AMORPH OUS Not Available [facility] [address] [facility] [address], [place], [address], 05/04/2025 14:20:15 05/04/20 25 05/04/2025 URINA LYSIS WITH MICRO other NEGATI VE Not Available [facility] [address] [facility] [address], [place], [address], 05/04/2025 14:20:15 04/28/20 25 04/28/2025 respi rator y patho gens DNA and RNA panel , PCR, nasop haryn x Covid negati ve Not Available [facility] ([facility]) [address] [place] [address], [address], 04/28/2025 13:23:21 04/28/20 25 04/28/2025 respi rator y patho gens DNA and RNA panel , PCR, nasop haryn x Rhinovirus positi ve Not Available [facility] ([facility]) [address] [place] [address], [address], 04/28/2025 13:23:21 04/28/20 25 04/28/2025 respi rator y patho gens DNA and RNA panel , PCR, nasop haryn x Influenza A negati ve Not Available [facility] ([facility]) [address] [place] [address], [address], 04/28/2025 13:23:21 04/28/20 25 04/28/2025 respi rator y patho gens DNA and RNA panel , PCR, nasop haryn x Influenza B negati ve Not Available [facility] ([facility]) [address] [place] [address], [address], 04/28/2025 13:23:21 04/28/20 25 04/28/2025 respi rator y patho gens DNA and RNA panel , PCR, nasop haryn x RSV negati ve Not Available [facility] ([facility]) [address] [place] [address], [address], 04/28/2025 13:23:21 05/04/20 25 05/06/2025 CULTU RE, URINE , ROUTI NE culture, urine, routine SEE NOTE abnormal CULTU RE, URINE , ROUTI NE Micro Numbe r: [id number] Test Statu s: Final Speci men Sourc e: Urine , clean catch Speci men Quali ty: Adequ ate Resul t: 50,00 0-100 ,000 CFU/m L of Coagu lase negat mannie staph yloco ccus, not S. sapro phyti cus May repre sent colon izers from exter nal and inter nal genit niall. No furth er testi ng (incl uding vickyce ptibi lity) will be perfo rmed. Not Available [employer] [facility] [address] [place], [address], 05/06/2025 04:48:52 05/15/2005/15/2025 respi rator y patho gens DNA and RNA panel , PCR, nasop haryn x Covid negati ve Not Available [facility] ([facility]) [address] [place] [address], [address], 05/15/2025 12:52:26 05/15/2005/15/2025 respi rator y patho gens DNA and RNA panel , PCR, nasop haryn x Rhinovirus negati ve Not Available [facility] ([facility]) [address] [place] [address], [address], 05/15/2025 12:52:26 05/15/2005/15/2025 respi rator y patho gens DNA and RNA panel , PCR, nasop haryn x Influenza A negati ve Not Available [facility] ([facility]) [address] [place] [address], [address], 05/15/2025 12:52:26 05/15/2005/15/2025 respi rator y patho gens DNA and RNA panel , PCR, nasop haryn x Influenza B negati ve Not Available [facility] ([facility]) [address] [place] [address], [address], 05/15/2025 12:52:26 05/15/20 25 05/15/2025 respi rator y patho gens DNA and RNA panel , PCR, nasop haryn x RSV negati ve Not Available [facility] ([facility]) [address] [place], [address], 05/15/2025 12:52:26 05/15/20 25 05/15/2025 XR, chest , 2 view No observ ation record ed. [facility] ([facility]) [address] [place], [address], 05/15/2025 15:43:12 05/15/20 25 05/15/2025 XR, chest , 2 view No observ ation record ed. [facility] ([facility]) [address] [place], [address], 05/15/2025 16:02:23 05/17/2005/17/2025 XR, knee, 3 view No observ ation record ed. [facility] [address] [place], [address], 05/17/2025 16:42:58 05/24/20 25 05/24/2025 elect rocar diogr am No observ ation record ed. [facility] ([facility]) [address] [place], [address], 05/29/2025 09:00:21 05/24/20 25 05/24/2025 elect rocar diogr am No observ ation record ed. [facility] ([facility]) [address] [place], [address], 05/25/2025 12:57:20 Result Notes None recorded. 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 Procedures Surgical History Date Name Laterality Status Provider Name and Address Organization Details Recorded Time 08/01/20 24 cardiovascular stress testing completed [facility] L[facility]CAnnabella 08/05/2024 11:09:31 07/01/20 18 total replacement of hip completed [facility] L.L.CAnnabella 05/21/2023 10:59:02 left atrial appendage closure completed Kristel Jackson MD [address] [place] [address], [phone] 06/09/2024 09:43:25 cardiac ablation for atrial fibrillation completed [facility] 12/14/2024 12:07:15 arthroscopy of shoulder completed [facility] 05/21/2023 10:59:28 tonsillectomy completed [facility] 05/21/2023 10:59:37 arthroscopy of knee completed [facility] 05/21/2023 10:59:54 Imaging Results None recorded. Procedure [...] Available Not Available Not Available flecainid e 150 mg tablet TAKE 1 TABLET BY MOUTH EVERY 12 HOURS active Not Available Not Available No t Available azithromy jori 250 mg tablet TAKE 2 TABLETS BY MOUTH ON DAY 1, AND THEN TAKE 1 TABLET BY MOUTH ONCE A DAY ON DAY 2 THROUGH DAY 5 06/08 completed Not Available Not Available Not Available [...] completed Not Available Not Available Not Available benzonata te 100 mg capsule TAKE 1 CAPSULE BY MOUTH THREE TIMES DAILY NEEDED FOR COUGH 06/08 completed Not Available Not Available Not Available [...] 1 TABLET BY MOUTH EVERY 12 HOURS 05/04 completed Not Available Not Available Not Available flecainid e 100 mg tablet TAKE [...] 1 TABLET BY MOUTH EVERY 8 HOURS 06/08 completed Not Available Not Available Not Available cefdinir 300 mg capsule TAKE 1 [...] every 12 hours by oral route for 10 days. 06/01 completed Not Available Not Available Not Available metoprolo l tartrate 25 mg tablet TAKE ONE ADDITION AL TABLET BY MOUTH AT THE ONSET OF RAPID HEART RATE 08/11 completed Not Available Not Available Not Available Dilantin two times daily 05/21 completed requests and feels he requires brand name only please do not substitu te. AM/sd; 436; Recorded 03/07/20 10:00AM by Senait Fine (Authori zed through Kristel Jackson MD), Refill Request; Refill [...] Details Last Updated DateTime 5 170.18 cm 24 kg/m2 02988.6 3 g 96.9 [degF] 52 /min 96 % 96 % 118/60 mm[Hg] [facility] 5 12:27:53 Date Recorded Body height Body mass index (BMI) Body weight Body temperature Heart rate Oxygen saturation Oxygen saturation in Arterial blood by Pulse oximetry Systolic And Diastolic Provider Name and Address Organization Details Last Updated DateTime 5 170.18 cm 24.1 kg/m2 05563.2 2 g 97.2 [degF] 56 /min 97 % 97 % 118/74 mm[Hg] [facility] 5 12:39:38 Date Recorded Body height Body mass index (BMI) Body weight Body temperature Heart rate Oxygen saturation Oxygen saturation in Arterial blood by Pulse oximetry Systolic And Diastolic Provider Name and Address Organization Details Last Updated DateTime 5 170.18 cm 24 kg/m2 77269.6 3 g 97.4 [degF] 67 /min 96 % 96 % 110/60 mm[Hg] CECILE DAY [facility] 5 09:51:18 Date Recorded Body height Body mass index (BMI) Body weight Body temperature Heart rate Oxygen saturation Oxygen saturation in Arterial blood by Pulse oximetry Systolic And Diastolic Provider Name and Address Organization Details Last Updated DateTime 5 170.18 cm 24 kg/m2 31793.6 3 g 97.4 [degF] 62 /min 96 % 96 % 112/58 mm[Hg] CECILE DAY [facility]CAnnabella 5 13:00:49 Social History Question Answer Notes LastModified by Organizat ion Details LastModified Time Tobacco Smoking Status Never Smoker CECILE ADY [facility] L.L[facility]CAnnabella 12/09/2022 11:09:09 What Was The Date Of Your Most Recent Tobacco Screening? 04/28/2025 [email or web address] Information not available 04/28/2025 Have You Ever Been Counseled For Unhealthy Alcohol Use? No [email or web address] Information not available 12/09/2022 Sex: Unknown Functional Status Question Answer Note LastModified by Organizat ion Details LastModified Time Do you use any illicit or recreational drugs? [email or web address] Information not available 02/11/2024 Do you or have you ever used any other forms of tobacco or nicotine? No [email or web address] Information not available 05/21/2023 What is your level of alcohol consumption? None Information not available 02/11/2024 Do you or have you ever used any nicotine-free cigarettes, vape, or chewing tobacco? No [email or web address] Information not available 03/16/2024 Mental Status None recorded. Family History Relationship Description Onset Age of this Age Resolved Age Notes LastModified by Organization Details LastModified Time Father Malignant neoplasm of oral cavity [email or web address] Not available 10:47:20 Father Alcoholism [email or web address] Not avail able 05/21/2023 10:47:26 Sister Asthma [email or web address] Not available 05/21/2023 10:47:32 Medical History No medical history recorded. Immunizations Vaccine Type Date Status Note Provider Nam e and Address Organization Details Recorded Time COVID-19, mRNA, LNP-S, PF, 30 mcg/0.3 mL dose 09/28/2020 completed CECILE reilly [facility] 05/21/2023 10:44:40 COVID-19, mRNA, LNP-S, PF, 30 mcg/0.3 mL dose 10/26/2020 completed CECILE reilly [facility] 05/21/2023 10:44:40 COVID-19, mRNA, LNP-S, PF, 30 mcg/0.3 mL dose 06/04/2021 completed Not Available [facility] 11:15:10 COVID-19, mRNA, LNP-S, PF, 30 mcg/0.3 mL dose 05/28/2021 completed CECILE reilly [facility] 05/21/2023 10:44:40 COVID-19, mRNA, LNP-S, PF, 30 mcg/0.3 mL dose, bhavana-sucrose 12/24/2021 completed CECILE reilly [facility] 05/21/2023 10:44:40 COVID-19, mRNA, LNP-S, bivalent, PF, 30 mcg/0.3 mL dose 05/20/2022 completed CECILE reilly [facility] 05/21/2023 10:44:40 Past Encounters Encounter ID Performer Location Encounter Start Date Encounter Closed Date Diagnosis/Indication Diagnosis SNOMED-CT Code Diagnosis ICD10 Code Diagnosis IMO Codes Diagnosis Note [id number] Kristel Jackson MD [facility] ([facility]) [address] [place] [address] 12/09/2022 10:52:34 12/15/2022 15:23:49 Abdominal pain 72472372 R10.9 Pain in scrotum 30381255 N50.82 germán has had multiple urology evaluaiton [...] ultimately be the diagnosis. [facility]was [facility] which told him they could not help and he shoud see [facility] . unfortunat preeti he has not heard [...] to collect all of this as well. [id number] Kristel Jackson MD [facility] ([facility]) [address] [place] [phone] 02/19/2023 13:39:35 02/19/2023 14:48:23 Constipation 50709926 K59.00 Taking Metamucil [id number] JSOE VNECES NP [facility] ([facility]) [address] [place] [phone] 04/02/2023 11:53:44 04/02/2023 14:58:29 Viral screening 314609628 Z11.52 Negative test in clinic todayDiscu ssed if any symptoms start to return for test or perform a home test 24-48 hours after symptoms onsetIncre ase PO fluidsRetu rn to clinic if any changes, any worsening, any concernsPa tient verbalized understand ing of plan [id number] Kristel Jackson MD [facility] ([facility]) [address] [place] [phone] 05/21/2023 10:36:31 05/21/2023 11:43:42 Nausea 213362997 R11.0 d/c doxycyclin ef/u if recurrence of any change in urinary sx stream etc. [id number] Kristel Jackson MD [facility] ([facility]) [address] [place] [phone] 06/02/2023 12:35:28 06/02/2023 16:41:29 Tachycardia 4416262 R00.0 Abdominal pain 73587160 R10.9 Atrial fib rillation with rapid ventricular response 2657268620 43482 I48.91 was tachycardi c at 160 on [...] and they are anticipati ng his arrival [id number] Kristel Jackson MD [facility] ([facility]) [address] [place] [phone] 06/05/2023 11:12:34 06/05/2023 12:44:37 Atrial fibrillation 38977843 I48.91 I spent greater than 35 mins in counseling and answering questions on atrial fibrillati oin. all questions were answered to the patient's satisfacti on. the patient was given the opportunit y to ask additional questions and acknowledg ed he had no additional questions at this time and will call if any questions arise. [id number] Kristel Jackson MD [facility] ([facility]) [address] [place] [phone] 06/15/2023 11:36:39 06/15/2023 11:43:06 [id number] Kristel Jackson MD [facility] ([facility]) [address] [place] [phone] 07/06/2023 12:20:10 07/06/2023 14:38:11 Atrial fibrillation 11969604 I48.[address] is conferring with their neurology colleagues and will have a plan of care regarding the medicaton. he is aware dilantin will need to be tapered. 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 717863448 G40.643 [id number] Kristel Jackson MD [facility] ([facility]) [address] [place] [phone] 07/14/2023 09:20:28 07/14/2023 10:43:21 Nausea 475500446 R11.0 Decreased stool caliber 1502377 R19.5 [id number] Kristel Jackson MD [facility] ([facility]) [address] [place] [phone] 08/04/2023 08:04:53 08/04/2023 08:46:17 Paroxysmal atrial fibrillation with rapid ventricular response 3367350873 I48.0 I recommende d that he see [...] cardiology today for evaluation of rate control. [id number] Kristel Jackson MD [facility] ([facility]) [address] [place] [phone] 08/06/2023 12:41:52 08/06/2023 14:15:41 Atrial fibrillation 19653961 I48.91 he is here to update me regarding his cardiology [employer] visit. unfortunat preeti, he does not have an update on rhythm control etc. he says that they didn't talk about that. [id number] MARJAN WOODP-C [facility] ([facility]) [address] [place] [phone] 08/19/2023 17:14:11 09/05/2023 16:46:55 [id number] Ghulam Gee MD [facility] ([facility]) [address] [place] [phone] 08/20/2023 09:31:51 08/26/2023 13:37:28 Upper respiratory infection 56083015 J06.9 [id number] Kristel Jackson MD [facility] ([facility]) [address] [place] [phone] 5 09/08/2023 11:53:25 09/08/2023 14:33:40 Nocturnal epilepsy 899876532 G40.802 Atrial fibrillation 4943 6004 I48.91 he is here to update me regarding his cardiology [employer] visit. unfortjulia álvarez, he does not have an update on rhythm control etc. he says that they didn't talk about that. [id number] Kristel Jackson MD [facility] ([facility]) [address] [place] [phone] 10/12/2023 11:09:46 10/12/2023 12:18:27 Nocturnal epilepsy 475692168 G40.263 [id number] Kristel Jackson MD [facility] ([facility]) [address] [place] [phone] 5 10/20/2023 11:14:51 10/20/2023 12:57:40 Atrial fibrillation 67339973 I48.91 we discussed ins and outs risks and benefits of watchman [id number] Kristel Jackson MD [facility] ([facility]) [address] [place] [phone] 5 11/02/2023 13:10:37 11/02/2023 14:13:05 Suprapubic pain 383713986 R10.30 he last needed to catheteriz e the night before last. [id number] Kristel Jackson MD [facility] ([facility]) [address] [place] [phone] 5 01/05/2024 12:08:52 01/06/2024 12:53:44 Bursitis of bursa of ankle and/or foot 786761638 M76.899 on walking he over inverts due to his hip issues.i will refer to consider structural suport for the foot/ankle to prevent over rotation of the ankle on ambulating and toconsider injection if he is not improving. compressiv e sleeveice and rest the ankle [id number] Kristel Jackson MD [facility] ([facility]) [address] [place] [id number] 02/11/2024 13:16:43 02/11/2024 14:22:17 Xerostomia 48052259 K11.7 we discussed supportive tx, avoidance of acidic beverages and inquire about whether he mouth breathes with his .he has a good bit of saliva on exam today [id number] Kristel Jackson MD [facility] ([facility]) [address] [place] [phone] 5 03/16/2024 10:32:45 03/16/2024 12:29:16 Atrial fibrillation 61295224 I48.91 we discussed ins and outs risks and benefits of watchman Bursitis o f bursa of ankle and/or foot 561053727 M76.899 on walking he over inverts due to his hip issues.i will refer to consider structural support for the foot/ankle to prevent over rotation of the ankle on ambulating and to consider injection if he is not improving. compressiv e sleeveice and rest the ankle [id number] Kristel Jackson MD [facility] ([facility]) [address] [place] [phone] 5 03/28/2024 12:14:25 03/28/2024 13:29:05 Atrial fibrillation with rapid ventricular response 1910484227 87102 I48.91 f/u as neededcont inue to consult with your cardiologi st and discuss rhythm control in two weeks. [id number] Kristel Jackson MD [facility] ([facility]) [address] [place] [address] [phone] 5 05/09/2024 13:37:20 05/09/2024 15:00:33 Lower urinary tract symptoms [id number] R39.9 [id number] Kristel Jackson MD [facility] ([facility]) [address] [place] [address] [phone] 5 06/09/2024 09:12:45 06/09/2024 10:44:06 Atrial fibrillation 36149818 I48.91 we discussed ins and outs risks and benefits of watchman we discussed maneuvers to lower heart rate once again. he is back to normal.it has been some time since his last spell. Atrial fib rillation with rapid ventricular response [id number] 08832 I48.91 f/u as neededcont inue to consult with your cardiologi st and discuss rhythm control in two weeks. Hoarse 36438369 R49.0 [id number] Kristel Jackson MD [facility] ([facility]) [address] [place] [address] [phone] 5 06/28/2024 09:54:21 06/28/2024 10:49:36 Atrial fibrillation with rapid ventricular response [id number] 59208 I48.91 f/u with cardiology for rhythm control in two weeks as planned. his two er visits from this past week are included [id number] Kristel Jackson MD [facility] ([facility]) [address] [place] [address] [phone] 5 07/25/2024 13:53:05 07/26/2024 22:18:34 Excessive daytime sleepiness - normal night sleep 829862621 G47.19 Atrial fib rillation with rapid ventricular response [id number] 90783 I48.91 f/u with cardiology for rhythm control in two weeks as planned. his two er visits from this past week are included [id number] Kristel Jackson MD [facility] ([facility]) [address] [place] [address] [phone] 5 08/11/2024 11:41:41 08/11/2024 14:15:44 Atrial fibrillation with rapid ventricular response [id number] 25161 I48.91 f/u with cardiology for rhythm control [...] see his cardiologi st in 4 weeks. [id number] [facility] [address] [place] [address] [phone] 5 09/05/2024 14:51:20 09/07/2024 12:07:34 Acute bacterial bronchitis 940272226 J20.9 Discussed use of otc medication s for symptom management .Push oral fluids and rest.If you develop fever, sob, or start feeling worse then return for re-evaluat ion. [id number] Kristel Jackson MD [facility] ([facility]) [address] [place] [address] [phone] 5 09/08/2024 12:19:13 09/08/2024 13:24:25 Acute bronchitis 41009847 J20.9 f/u if any fever productive cough dyspnea or any other concern. [id number] R[facility]Y [facility] ([facility]) [address] [place] [address] [phone] 5 09/14/2024 09:03:40 09/17/2024 10:09:12 Acute bacterial bronchitis 703610850 J20.9 Discussed use of otc medication s for symptom management .Push oral fluids and rest.If you develop fever, sob, or start feeling worse then return for re-evaluat ion. [id number] Kristel Jackson MD [facility] ([facility]) [address] [place] [address] [phone] 5 09/15/2024 10:12:31 09/15/2024 13:24:33 Atrial fibrillation with rapid ventricular response [id number] 63297 I48.91 previous planf/u with cardiology for rhythm [...] cardiologi st in 4 weeks. Acute bronchitis 0315995 2 J20.9 f/u if any fever productive cough dyspnea or any other concern. Acute uppe r respiratory infection 28798752 J06.9 [id number] Kristel Jcakson MD [facility] ([facility]) [address] [place] [address] [phone] 5 09/27/2024 10:49:48 09/28/2024 10:44:16 Acute upper respiratory infection 83552595 J06.9 Cough 71900776 R05.9 Atrial fib rillation with rapid ventricular response 4361681935 48746 I48.91 [id number] Kristel Jackson MD [facility] ([facility]) [address] [place] [address] [phone] 5 10/03/2024 11:47:59 10/03/2024 14:39:27 Cough 95067848 R05.9 [id number] Kristel Jackson MD [facility] ([facility]) [address] [place] [address] [phone] 5 12/14/2024 11:59:24 12/14/2024 18:35:03 History of radiofrequency ablation operation for arrhythmia 926707072 Z98.296 [id number] RENETTA MEDINA [facility] ([facility]) [address] [place] [address] [phone] 5 12/16/2024 12:32:41 12/16/2024 14:36:20 Infection of toenail 3063036320 9761447 L60.0 39674560 Patient wishes to follow up with Dr Verduzco next week for possible partial nail removal. RTC with any new or worsening symptoms. 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 he will call to reschedule . he missed his last apt to go to the ER it sounds like. extensive counseling on medication s and next steps what ifs where and what to do in all scenarios. too much to possibly individual ly recap today Acute urin ho tract infection 829358350 N39.0 573748 any fever go to erany urinary sx's other than fever call. 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 he will call to reschedule . he missed his last apt to go to the ER it sounds like. extensive counseling on medication s and next steps what ifs where and what to do in all scenarios. too much to possibly individual ly recap today [id number] Kristel Jackson MD [facility] ([facility]) [address] [place] [address] [phone] 5 01/30/2025 14:04:19 02/04/2025 13:58:22 [id number] Kristel Jackson MD [facility] ([facility]) [address] [place] [address] [phone] 5 01/30/2025 14:16:36 01/30/2025 15:22:28 Chest pain 96796443 R07.9 77202696 Atypical chest pain 1025 91945 R07.89 324859 to er if sx's recur. ekg no signs of ischemiasi nus rhythm with 1st degree av block [id number] RENETTA MEDINA [facility] ([facility]) [address] [place] [address] [phone] 5 04/28/2025 13:10:11 04/28/2025 14:26:33 Acute cough 3534633282 15322464 R05.1 4043617821 Disease ca used by Rhinovirus 54608286 B34.8 552382 Increase po fluids. Rest. May use otc meds as needed for symptoms. Return to clinic with any new or worsening symptoms. [id number] Kristel Jackson MD [facility] ([facility]) [address] [place] [address] [phone] 5 05/04/2025 12:16:04 05/05/2025 09:34:58 Dysuria 63660918 R30.0 15344 Vertigo 585357072 R42 71733 [id number] Kristel Jackson MD [facility] ([facility]) [address] [place] [address] [phone] 5 05/04/2025 12:07:52 05/06/2025 04:03:49 Dysuria 34249880 R30.0 52524 [id number] Kristel Jackson MD [facility] ([facility]) [address] [place] [address] [phone] 5 05/15/2025 12:32:00 05/16/2025 10:05:38 Viral upper respiratory tract infection 505099179 J06.9 500485 Productive cough 1897477 5 R05.8 429538 cxr i do not see acute findings. however recent onset production to cough with abnormal breath sounds will tx for CAP [id number] Kristel Jackson MD [facility] ([facility]) [address] [place] [address] [phone] 5 05/17/2025 09:46:29 05/18/2025 18:04:16 Pain of left knee joint 7476212970 79914 M25.562 788021 Fall in home 34798165 W1 9.XXXA Y92.009 44199058 [id number] Kristel Jackson MD [facility] ([facility]) [address] [place] [address] [phone] 5 05/24/2025 12:57:50 05/24/2025 16:21:23 Preoperative procedure 569232145 Z01.733 [id number] Kristel Jackson MD [facility] ([facility]) [address] [place] [address] [phone] 5 06/08/2025 12:55:57 06/13/2025 12:01:17 Right lower quadrant pain 983175713 R10.31 986769 mosly likely hernia have noted before. it is not too bothersome . he will be careful and would only want surgery if worsening. Health Concerns Section Related Observation LastModified by Organization Detai ls LastModified Time None Recorded Concern Status LastModified by Organization Details LastModified Time None Recorded Advance Directives Directive None Recorded Payers Insurance Date Sequence Insurance Name Policy Number Policy Guillen Covered Member ID Guillen Member ID Guarantor Name 06/07/2025 [place] - [id number] (MEDICARE) Germán Lovell Fatmata [id number] Germán Lovell Fatmata 06/13/2025 2 [employer] (MEDICARE SUPPLEMENT) Germán Lovell Fatmata [id number] Germán Lovell Fatmata 04/28/2025 2 [facility] Germán Lovell Fatmata [id number] Germán Lovell [place] 06/07/2025 1 [place]IC[place]: [place] Germán Lovell [place] [id number] Germán Lovell Fatmata Notes Date Note Type Note Provider Name and Address Organization Details Recorded Time 5 text/html Pt states he believes he has a UTI due to feeling off-balance. He has felt this way for about 2 weeks. He has had no fevers, dysuria, flank pain, abdominal pain, back pain, hematuria, etc. over the past 3-4 weeks his stream is slightly diminished but none of the above symtpoms.these are little spells that don't last but a few seconds. they came and went over the weekend and just a tad this morning there is no associated palpitation or abnormal heart beat. the symptoms are a sense of slight quick movement when he is not. he has had rhinovirus. runny nose and cough this is better. Kristel Jackson MD [address] [place] [address], [phone], [facility] 05/04/2025 12:52:29 5 text/html Upper Respiratory SymptomsReported by PatientUpper Respiratory SymptomsFor quality, patient reportsproductive cough. For location, patient reportschest. For duration, patient reportssymptoms lasting less than 2 weeks (2-3 days). For associated symptoms, patient reportsno chest pain,no fever,no sore throat,no vomiting,no diarrhea,no nausea, andno chills. ROS as noted in the HPI his previous sx's had improved steadily. however he developed a new cough or worsening 3 days ago.he has been taking mucinex. he is better today than he was over the weekend.he has some clear to cloudy sputum on occasion.he will cough for a 2-3 minute spell Kristel Jackson MD [address] [place] [address], [phone], [facility] 05/15/2025 14:01:19 5 text/html Joint PainReported by PatientHPIFor location, patient reportsleft knee. For severity, patient reportsno change. For duration, patient reportspresent <1 month (3 days). For timing, patient reportssudden. For context, patient reportstrauma(patient fell when he tripped over a limb and his knee hit concrete). For associated symptoms, (edema, bruising, knee pain (worse if bearing weight)).ROS as noted in the HPI Kristel Jackson MD [address] [place], [phone], [facility] 05/17/2025 10:11:29 5 text/html Abdominal PainReported by PatientAbdominal PainFor quality, patient reportsbloating. For associated symptoms, patient reportsnausea (not nauseated since thursday)andvomiting (last time vomiting was thursday)but reportsno fever,no blood in the urine,no heartburn,no diarrhea,no blood in stool, andnormal appetite. For severity, patient reportsbetter. For onset/timing, patient reportsacute (4 days).Patient reports that Thursday he had liver for dinner and then shortly after started vomiting. Pt feels these sxs are much better now. Musculoskeletal PainReported by PatientHPIFor quality, patient reportssharp. For severity, patient reportsno change. For duration, patient reportspresent for 1-6 months. For timing, patient reportsintermittent. For aggravating factors, patient reportsmovement/position ing(coughing, twisting, lifting something heavy). For location, (right groin).Patient reports that he doesn't have any bulge. He just feels a painROS as noted in the HPI Kristel Jackson MD [address] [place] [address], [phone], [facility] [place] 06/08/2025 13:25:52
[2025-07-11] VITALS: BP 140/81; PULSE 78; O2SAT 92
--- NOTE | 2025-07-11 00:04 | W.ED.ARRPALP ---
HPI - Arrhythmia/Palpitations General: Chief Complaint: Arrhythmia/Palpitations Stated Complaint: Heart Palpatations Time Seen by Provider: 07/10/25 23:57 Source: patient Mode of arrival: ambulatory Limitations: no limitations History of Present Illness: 85-year-old male history of A-fib states that time he started having some palpitations. He did take a metoprolol this evening his heart rate now has been in the 70s and 80s. He denies any chest pain denies any shortness of breath states he has had some constipation denies any vomiting or diarrhea. Has had a history of ablation Related Data Home Medications ?Medication ?Instructions ?Recorded ?Confirmed melatonin 5 mg tablet 5 mg PO BEDTIME 06/02/23 12/20/24 omega-3 fatty acids 1,000 mg 1,000 mg PO QAM 06/02/23 12/20/24 capsule phenytoin sodium extended 100 mg 100 mg PO BID 09/06/23 12/20/24 capsule (Dilantin Extended) vit C 250 mg-vit E 90 mg-zinc 40 1 tab PO BID 09/06/23 12/20/24 mg-copper 1 xe-horxnf-hrrewi capsule (PreserVision AREDS-2) aspirin 81 mg tablet,delayed 81 mg PO DAILY 01/01/24 12/20/24 release Previous Rx's ?Medication ?Instructions ?Recorded metoprolol tartrate 100 mg tablet 100 mg PO BID #60 tabs 09/17/24 cefdinir 300 mg capsule 300 mg PO BID #14 caps 01/15/25 diltiazem HCl 30 mg tablet 30 mg PO Q8H #30 tabs 01/15/25 Allergies Allergy/AdvReac Type Severity Reaction Status Date / Time levetiracetam (From [facility]) Allergy ADR-Halluci Verified 03/08/25 14:43 luizing Review of Systems Card: Reports: palpitations [facility] PFSH: Medical History Anxiety Atrial fibrillation with rapid ventricular response Atrial fibrillation, new onset Urethral stricture Lower urinary tract symptoms (LUTS) Surgical History Hx of tonsillectomy H/O arthroscopy of knee left History of carpal tunnel release left H/O rotator cuff surgery left Family History Father , at age 63 Cancer tongue Mother , at age 64 Lung disease Social History Smoking and tobacco/nicotine status: never used tobacco/nicotine Alcohol intake: current Alcohol intake frequency: 0-2 Drinks per Day Marital status: Current occupational status: retired Physical Exam Const: COMMON NORMALS: no acute distress, patient oriented x3 and healthy appearing HENMT: COMMON NORMALS: normocephalic and atraumatic HEAD & SCALP: normocephalic and atraumatic Eye: COMMON NORMALS: conjunctivae normal CONJUNCTIVA: Yes conjunctivae normal Neck/C-Spine: COMMON NORMALS: full ROM and supple Chest: COMMONS NORMALS: normal inspection of the chest Resp: COMMON NORMALS: normal respiratory effort, No retractions, No use of accessory muscles and clear to auscultation bilaterally AUSCULTATION: clear to auscultation bilaterally Cardio: COMMON NORMALS: regular rate and No murmurs present (Cardio) RATE: regular rate RHYTHM: abnormal rhythm irregularly irregular GI: COMMON NORMALS: Normal to inspection, nondistended, normoactive bowel sounds present, Soft to palpation, non-tender and no masses PALPATION: Yes Soft to palpation Extremity: COMMON NORMALS: normal to inspection and full ROM Neuro: COMMON NORMALS: patient oriented x3, moves all extremities and no focal motor deficits Psych: COMMON NORMALS: mental status grossly normal, Normal thought process present and cooperative THOUGHT PROCESS: Normal thought process present Skin: COMMON NORMALS: no rashes or lesions noted and no wounds GENERAL SKIN EXAM: no rashes or lesions noted Course Vital Signs: Vital signs: Vital Signs Temperature 97.4 F L 07/10/25 23:50 Pulse Rate 71 07/11/25 00:40 Respiratory Rate 18 07/10/25 23:50 Blood Pressure 91/39 07/11/25 00:40 Pulse Oximetry 92 07/11/25 00:40 Oxygen Delivery Me thod Room Air 07/11/25 00:17 MDM - Arrhythmia/Palpitations Medical Decision Making Patient presents here with palpitations. Differential includes A-fib with RVR atrial flutter with RVR. Initial EKG here did not show sinus tachycardia heart rate [address] elevation QRS 127. Patient had taken metoprolol at home and his heart rate while he is here did decrease repeat EKG showed heart rate of 78 normal sinus rhythm with supraventricular premature complexes. No ST elevation QRS 109 QTc 432. He has been asymptomatic. Had no chest pain no shortness of breath. He stable for discharge follow-up PCP return if worsening I did go over these findings with him he understands and agrees. Did review his labs that showed no signs of anemia or electrolyte abnormalities Medical Records I reviewed the patient's medical records. Lab Data I reviewed the patient's lab results. 07/11/25 00:11 07/11/25 00:11 Laboratory Results WBC 8.01 10^3/uL (3.29-11.43) 07/11/25 00:11 RBC 4.30 10^6/uL (3.85-5.65) 07/11/25 00:11 Hgb 14.00 g/dL (11.27-16.99) 07/11/25 00:11 Hct 41.5 % (37-53) 07/11/25 00:11 MCV 96.5 fl (82-101) 07/11/25 00:11 MCH 32.6 pg (27-33) 07/11/25 00:11 MCHC 33.7 g/dL (30-55) 07/11/25 00:11 RDW 12.9 % (12.1-15.1) 07/11/25 00:11 Plt Count 204 10^3/cmm (157-399) 07/11/25 00:11 MPV 8.7 fL (7.4-10.4) 07/11/25 00:11 Neut % (Auto) 50.0 % 07/11/25 00:11 Lymph % (Auto) 35.8 % 07/11/25 00:11 [place] % (Auto) 10.5 % 07/11/25 00:11 Eos % (Auto) 2.9 % 07/11/25 00:11 Baso % (Auto) 0.6 % 07/11/25 00:11 Neut # (Auto) 4.00 10^3/uL (1.8-7.7) 07/11/25 00:11 Lymph # (Auto) 2.9 10^3/uL (0.8-4.8) 11/11/25 00:11 [place] # (Auto) 0.8 10^3/uL (0.2-0.9) 07/11/25 00:11 Eos # (Auto) 0.2 10^3/uL (0.0-0.8) 07/11/25 00:11 Baso # (Auto) 0.1 10^3/uL (0.0-0.1) 07/11/25 00:11 Nucleated RBC % (auto) 0 % 07/11/25 00:11 Nucleated RBCs # 0.0 /100WBC 07/11/25 00:11 Sodium 135 mmol/L (136-145) L 07/11/25 00:11 Potassium 4.1 mmol/L (3.5-5.1) 07/11/25 00:11 Chloride 98 mmol/L (98-107) 07/11/25 00:11 Carbon Dioxide 27 mmol/L (22-29) 07/11/25 00:11 Anion Gap 14.1 (5-19) 07/11/25 00:11 BUN 20 mg/dL (8-23) 07/11/25 00:11 Creatinine 0.8 mg/dL (0.7-1.2) 07/11/25 00:11 GFR Calculation Not Reportable 07/11/25 00:11 Glucose 123 mg/dL (65-115) H 07/11/25 00:11 Calculated Osmolality 284 mOsm/kg (285-295) L 07/11/25 00:11 Calcium 8.9 mg/dL (8.5-10.5) 07/11/25 00:11 All radiology interpretation(s) finalized by discharge EKG Data EKG 1: I personally reviewed and interpreted this EKG as follows: EKG interpretation date: 07/10/25 EKG interpretation time: 23:56 Interpretation: sinus tach hr [address] elevation qrs 127 qtc 440 Discharge Plan Discharge Patient Disposition: Home Clinical Impression: Palpitations Condition: Stable Prescriptions: No Action melatonin 5 mg Tablet 5 mg PO BEDTIME omega-3 fatty acids 1,000 mg Capsule 1,000 mg PO QAM phenytoin sodium extended [Dilantin Extended] 100 mg capsule 100 mg PO BID PreserVision AREDS-2 250-90-40-1 mg Capsule 1 tab PO BID aspirin 81 mg Tablet,Delayed Release (Dr/Ec) 81 mg PO DAILY diltiazem HCl 30 mg tablet 30 mg PO Q8H Qty: 30 0RF cefdinir 300 mg capsule 300 mg PO BID Qty: 14 0RF metoprolol tartrate 100 mg tablet 100 mg PO BID Qty: 60 0RF Discharge Orders: Discharge ED (Routine); Ordered 07/11/25 Ordered By: Jorge Cao Referrals: Darell Jackson MD [Primary Care Provider, [facility]] - 4-7 days Discharge Diet: Advance as tolerated Discharge Activity: Resume usual activity Patient Instructions: Heart Palpitations (ED) Print Language: [place]ican Coding Level of Care Code ED Chain Splitter for More Mallory
[2025-07-11 00:17] VITALS: BP 97/55; PULSE 76; O2SAT 93
[2025-07-11 00:21] LABS: Hematocrit 41.5 % (37-53); Hemoglobin 14.00 g/dL (11.27-16.99); Mean Corpuscular HGB Conc 33.7 g/dL (30-55); Mean Corpuscular Hemoglobin 32.6 pg (27-33); Mean Corpuscular Volume 96.5 fl (82-101); Nucleated Red Blood Cells % 0 %; Platelet Count 204 10^3/cmm (157-399); Red Blood Count 4.30 10^6/uL (3.85-5.65); White Blood Count 8.01 10^3/uL (3.29-11.43)
--- NOTE | 2025-07-11 00:21 | ECG_ITS ---
[employer] Test Date: 2025-07-11 Pat Name: Jesus Avilez Department: Room: Gender: Male Log Manager: : 1940 Requested By: Jorge Cao Order Number: [id number] Reading MD: Measurements Intervals Dahlgren Rate: 78 P: 60 OK: 268 QRS: -27 QRSD: 109 T: 71 QT: 398 QTc: 456 Interpretive Statements SINUS RHYTHM WITH FIRST DEGREE AV BLOCK WITH FREQUENT SUPRAVENTRICULAR PREMATURE COMPLEXES BORDERLINE LEFT AXIS DEVIATION [QRS AXIS < -20] MODERATE VOLTAGE CRITERIA FOR LVH, CONSIDER NORMAL VARIANT [MEETS CRITERIA IN ONE OF: R(aVL), S(V1), R(V5), R(V5/V6)+S(V1)] NONSPECIFIC T-WAVE ABNORMALITY No previous ECG available for comparison [email or web address]
[2025-07-11 00:35] LABS: Anion Gap 14.1 (5-19); Blood Urea Nitrogen 20 mg/dL (8-23); Calcium 8.9 mg/dL (8.5-10.5); Carbon Dioxide 27 mmol/L (22-29); Chloride 98 mmol/L (98-107); Creatinine Clr Calc Pharmacy 66.1790; Glucose 123 mg/dL (65-115); Osmolality Calculated 284 mOsm/kg (285-295); Potassium 4.1 mmol/L (3.5-5.1); Sodium 135 mmol/L (136-145)
[2025-07-11 00:40] VITALS: BP 91/39; PULSE 71; O2SAT 92
== END 2025-07-11 00:46 | disposition home or self-care (01) ==
PROVIDERS: Emergency Provider Emergency Medicine; PCP Family Medicine
DX: R00.2 Palpitations (principal); Z79.82 Long term (current) use of aspirin
CPT/HCPCS: 80048; 85025; 93005; 99284; J3490

== ENCOUNTER 2025-07-30 00:59 | Emergency (ER) | payer MEDICARE, SELFPAY ==
--- OUTSIDE RECORDS SUMMARY | 2024-07-18 07:30 | XMS_ITS ---
Author Organization [facility] Address [address] [place] [address] Care Team Providers Care It Systems Analyst Name Role Phone Manuel PASCAL, Darell Primary Care Provider Alyssia Mohr [phone] REASON FOR VISIT Afib per Dr. Jackson- 06/23/24 Encounters Encounter Location Date Provider Diagnosis [facility] [address] [address] 07/18/2024 Alyssia Carter Plan Of Treatment Next Appt Details Provider Name:Annel mcneil, 09/20/2025 11:00:00 AM, [place], [address], Provider Name:Alyssia del rio, 01/10/2026 11:30:00 AM, [address], [phone], Progress Notes * Jesus REES DDOB: [birth year] (85 yo M)Acc No.[id number]:07/18/2024 Progress Notes Patient: Jesus Boateng Provider: Ellen Carter MD :1940 A ge:84 Y S ex:Male Date:07/18/2024 Address: [address], [id number] Pcp:Darell Jackson MD Subjective: * Chief Complaints: * A fib per Dr. Jackson- 06/23/24 * Electronic signature of Page Carter MD on 07/30/2025 at 01:04 AM HANDCREW FOREMAN Sign off status: Pending * Provider: Ellen Carter MD Date: 09/17/2023 Generated for Madhu pagan/Lalo/Heber on: 09/29/2024 01:04 AM HANDCREW FOREMAN
--- OUTSIDE RECORDS SUMMARY | 2024-07-26 02:45 | XMS_ITS ---
Author Organization [facility] Address [address] [place] [address] Care Team Providers Care Tar And Ammonia Pump Operator Name Role Phone Manuel PASCAL, Darell Primary Care Provider Alyssia Mohr [phone] Encounters Encounter Location Date Provider Diagnosis [facility] [address] [place] [address], [place] [address] 07/26/2024 Alyssia Carter Plan Of Treatment Next Appt Details Provider Name:Annel mcneil, 09/20/2025 11:00:00 AM, [address], [place], [address], Provider Name:Alyssia del rio, 01/10/2026 11:30:00 AM, [address] [place], [address], Progress Notes * Jesus REES DDOB: [birth year] (85 yo M)Acc No.[id number]:07/26/2024 Patient: Jesus Boateng Provider: Ellen Carter MD :1940 A ge:84 Y S ex:Male Date:07/26/2024 Address:[address], [facility] Pcp:Darell Jackson MD Check In:08:32 AM CSTCheck O ut:08:32 AM SKIDDER LEVER OPERATOR Billing Information: * Procedure Codes: * Electronic signature of Page Carter MD on 07/30/2025 at 01:04 AM SKIDDER LEVER OPERATOR Sign off status: Pending * Provider: Ellen Carter MD Date: 09/25/2023 Generated for Madhu pagan/Lalo/Heber on: 09/29/2024 01:04 AM SKIDDER LEVER OPERATOR
--- OUTSIDE RECORDS SUMMARY | 2024-08-01 06:45 | XMS_ITS ---
Author Organization [facility] Address [address] [place] [address] Care Team Providers Care Inspector Electromechanical Name Role Phone Manuel PASCAL, Darell Primary Care Provider Alyssia Mohr [phone] Encounters Encounter Location Date Provider Diagnosis [facility] [address] [place] [address], [place] [address] 08/01/2024 Alyssia Carter Plan Of Treatment Next Appt Details Provider Name:Annel mcneil, 09/20/2025 11:00:00 AM, [address], [place], [address], Provider Name:Alyssia del rio, 01/10/2026 11:30:00 AM, [address] [place], [address], Progress Notes * Jesus REES DDOB: [birth year] (85 yo M)Acc No.[id number]:08/01/2024 Patient: Jesus Boateng Provider: Ellen Carter MD :1940 A ge:84 Y S ex:Male Date:08/01/2024 Address:[address], [facility] Pcp:Darell Jackson MD Check In:12:36 PM CHEMISTRY TECHNOLOGIST Billing Information: * Procedure Codes: * Electronic signature of Page Carter MD on 07/30/2025 at 01:04 AM CHEMISTRY TECHNOLOGIST Sign off status: Pending * Provider: Ellen Carter MD Date: 10/02/2023 Generated for Madhu pagan/Lalo/Heber on: 09/29/2024 01:04 AM CHEMISTRY TECHNOLOGIST
--- OUTSIDE RECORDS SUMMARY | 2024-09-09 05:30 | XMS_ITS ---
Author Organization [facility] Address [address] [place] [address] Care Team Providers Care Home Energy Rater Name Role Phone Manuel PASCAL, Darell Primary Care Provider Alyssia Mohr [phone] REASON FOR VISIT 2 mo per 07/15/24 drk ov/lg Encounters Encounter Location Date Provider Diagnosis [facility] [address] [address] 09/09/2024 Alyssia Carter Plan Of Treatment Next Appt Details Provider Name:Annel mcneil, 09/20/2025 11:00:00 AM, [address] [place], [address], Provider Name:Alyssia del rio, 01/10/2026 11:30:00 AM, [address], [address], Progress Notes * Jesus REES DDOB: [birth year] (85 yo M)Acc No.[id number]:09/09/2024 Progress Notes Patient: Edwin ahumadanormaJesus Provider: Ellen Carter MD :1940 A ge:84 Y S ex:Male Date:09/09/2024 Address:[address], [id number] Pcp:Darell Jackson MD Subjective: * Chief Complaints: * 2 mo per 07/15/24 drk ov/lg * Electronic signature of Page Carter MD on 07/30/2025 at 01:03 AM EXTRA HAND Sign off status: Pending * Provider: Ellen Carter MD Date: 0 09/09/2024 Generated for Madhu pagan/Lalo/Hawasmitting on: 1 09/29/2024 01:03 AM EXTRA HAND
--- OUTSIDE RECORDS SUMMARY | 2024-09-27 04:45 | XMS_ITS ---
Author Organization [facility] Address [address] [place] [address] Care Team Providers Care Branch Lending Manager Name Role Phone Manuel PASCAL, Darell Primary Care Provider Alyssia Mohr [phone] REASON FOR VISIT 2 mo per 07/15/24 drk ov/lg Encounters Encounter Location Date Provider Diagnosis [facility] [address] [id number] 09/27/2024 Alyssia Carter Plan Of Treatment Next Appt Details Provider Name:Annel mcneil, 09/20/2025 11:00:00 AM, [address] [place], [id number], Provider Name:Alyssia del rio, 01/10/2026 11:30:00 AM, [address], [phone], Progress Notes * Jesus REES DDOB: [birth year] (85 yo M)Acc No.[id number]:09/27/2024 Progress Notes Patient: Jesus Boateng Provider: Ellen Carter MD :1940 A ge:84 Y S ex:Male Date:09/27/2024 Address:[address], [id number] Pcp:Darell Jackson MD Subjective: * Chief Complaints: * 2 mo per 07/15/24 drk ov/lg * Electronic signature of Page Carter MD on 07/30/2025 at 01:03 AM CRYSTAL GAZER Sign off status: Pending * Provider: Ellen Carter MD Date: 0 09/27/2024 Generated for Madhu pagan/Lalo/Hawasmitting on: 09/29/2024 01:03 AM CRYSTAL GAZER
--- OUTSIDE RECORDS SUMMARY | 2025-07-11 05:00 | XMS_ITS ---
Author Organization [facility] Address [address] [place] [address] Care Team Providers Care Animal Shelter Clerk Name Role Phone Manuel PASCAL, Darell Primary Care Provider Alyssia Mohr Unavailable [phone] REASON FOR VISIT Overdue FU * RS from 09/27 Encounters Encounter Location Date Provider Diagnosis [facility] [address] [address] 07/11/2025 Alyssia Carter Plan Of Treatment Next Appt Details Provider Name:Annel mcneil, 09/20/2025 11:00:00 AM, [place], [address], Provider Name:Alyssia del rio, 01/10/2026 11:30:00 AM, [address] [place] [address], [phone], Progress Notes * Jesus REES DDOB: [birth year] (85 yo M)Acc No.[id number]:07/11/2025 Progress Notes Patient: Edwin moyerJesus Provider: Ellen Carter MD :1940 A ge:85 Y S ex:Male Date:07/11/2025 Address: [address] Pcp:Darell Jackson MD Subjective: * Chief Complaints: * O verdue FU * RS from 09/27 Billing Information: * Procedure Codes: Care Plan Details* * Electronic signature of Page Carter MD on 07/30/2025 at 01:03 AM BAR EXAMINER Sign off status: Pending * Provider: Ellen Carter MD Date: 09/10/2024 Generated for Madhu pagan/Lalo/Elvaitting on: 09/29/2024 01:03 AM BAR EXAMINER
--- OUTSIDE RECORDS SUMMARY | 2025-07-30 01:03 | XMS_ITS | Continuity of Care Document ---
Author Organization KEL[facility] Evin Ren, [facility] ([facility]) Address [address] [place] [address] Care Team Providers Care Data Collector Name Role Phone DARELL GUILLORY Primary Care Provider Unavailabl e Assessment No assessment recorded. Plan of Treatment Reminders Order Date Submit Date Provider Last Modified By Organization Details Last Modified Time Details Appointments None record ed. Lab None record ed. Referral None record ed. Procedures None record ed. Surgeries None record ed. Imaging None record ed. Medication Orders None record ed. Patient TargetsNo targets recorded. Patient InstructionsNo instructions recorded. Reason for Referral None Reported. Results Created Date Observation Date Name Description Value Unit Range Abnormal Flag Note LastModifiedBy Organization Detail LastModifiedTime 05/15/2005/15/2025 respi rator y patho gens DNA and RNA panel , PCR, nasop haryn x Covid negati ve Not Available [facility] ([facility]) [address] [place], [address], 05/15/2025 12:52:26 05/15/20 25 05/15/2025 respi rator y patho gens DNA and RNA panel , PCR, nasop haryn x Rhinovirus negati ve Not Available [facility] ([facility]) [address] [place], [address], 05/15/2025 12:52:26 05/15/20 25 05/15/2025 respi rator y patho gens DNA and RNA panel , PCR, nasop haryn x Influenza A negati ve Not Available [facility] ([facility]) [address] [place], [address], 05/15/2025 12:52:26 05/15/20 25 05/15/2025 respi rator y patho gens DNA and RNA panel , PCR, nasop haryn x Influenza B negati ve Not Available [facility] ([facility]) [address] [place], [address], 05/15/2025 12:52:26 05/15/20 25 05/15/2025 respi rator y patho gens DNA and RNA panel , PCR, nasop haryn x RSV negati ve Not Available [facility] ([facility]) [address] [place], [address], 05/15/2025 12:52:26 05/15/20 25 05/15/2025 XR, chest , 2 view No observ ation record ed. [facility] ([facility]) [address] [place], [address], 05/15/2025 15:43:12 05/15/2005/15/2025 XR, chest , 2 view No observ ation record ed. [facility] ([facility]) [address] [place], [address], 05/15/2025 16:02:23 05/17/2005/17/2025 XR, knee, 3 view No observ ation record ed. [facility] [address] [place], [address], 05/17/2025 16:42:58 05/24/2005/24/2025 elect rocar diogr am No observ ation record ed. [facility] ([facility]) [address] [place], [address], 05/29/2025 09:00:21 09/24/05/24/2025 sun smith am No observ ation record ed. WIC[facility] ([facility]) [address] [place], [address], 05/25/2025 12:57:20 Result Notes None recorded. 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 3 10:46:31 Atrial fibrillati on with rapid ventricula r response 795271946812 109 Active 2022 CECILE reilly [facility] 4 10:49:47 Problem Notes None recorded. Procedures Surgical History Date Name Laterality Status Provider Name and Address Organization Details Recorded Time 08/01/20 24 cardiovascular stress testing completed CECILE DAY [facility] 08/05/2024 11:09:31 07/01/20 18 total replacement of hip completed CECILE DAY [facility] 05/21/2023 10:59:02 left atrial appendage closure completed Darell Guillory MD [address] [place], [address], [facility] 06/09/2024 09:43:25 cardiac ablation for atrial fibrillation completed CECILE DAY [facility] 12/14/2024 12:07:15 arthroscopy of shoulder completed CECILE DAY [facility] 05/21/2023 10:59:28 [facility]/21/2023 10:59:37 arthroscopy of knee completed [facility] [place] 05/21/2023 10:59:54 Imaging Results None recorded. Procedure Notes None recorded. Medical Equipment None Reported. Allergies Allergen ID Allergen Name Allergen Category Reaction Reaction Severity Criticality Documentation Date Start Date Code Code System Note Provider Name and Address Organization Details Recorded Time 02454 levetirac etam medicatio n Not available Not available Not available 07/14/20252024 58411 7 RxNorm Sarah reilly [facility], Evin 12:10:04 Medications Name Sig Start Date Stop Date [...] completed Not Available Not Available Not Available hydrocodo ne 5 mg-acetam inophen 325 mg tablet TAKE 1 TO 2 TABLETS BY MOUTH EVERY 5 HOURS NEEDED FOR PAIN 07/14 completed Not Available Not Available Not Available [...] Recorded 03/07/20 22 10:00AM by Senait Fine (Authori zed through Darell Guillory MD), Refill Request; Refill Quantity : 180; [...] weight Body temperature Heart rate Oxygen saturation Systolic And Diastolic Provider Name and Address Organization Details Last Updated DateTime 170.18 cm 24 kg/m2 08395.6 3 g 97.4 [degF] 62 /min 96 % 112/58 mm[Hg] CECILE DAY [facility] 13:00:49 Social History Question Answer Notes LastModified by Organizat ion Details LastModified Time Tobacco Smoking Status Never Smoker CECILE reilly [facility] 12/09/2022 11:09:09 What Was The Date Of Your Most Recent Tobacco Screening? 04/28/2025 [email or web address] Information not available 04/28/2025 Have You Ever Been Counseled For Unhealthy Alcohol Use? No [email or web address] Information not available 12/09/2022 Sex: Unknown Functional Status Question Answer Note LastModified by Organizat ion Details LastModified Time Do you use any illicit or recreational drugs? No [email or web address] Information not available 02/11/2024 Do you or have you ever used any other forms of tobacco or nicotine? No [email or web address] Information not available 05/21/2023 What is your level of alcohol consumption? None [email or web address] Information not available 02/11/2024 Do you or have you ever used any nicotine-free cigarettes, vape, or chewing tobacco? No Information not available 03/16/2024 Mental Status None recorded. Family History Relationship Description Onset Age of this Age Resolved Age Notes LastModified by Organization Details LastModified Time Father Malignant neoplasm of oral cavity [email or web address] Not available 10:47:20 Father Alcoholism [email or web address] Not avail able 05/21/2023 10:47:26 Sister Asthma [email or web address] Not available 05/21/2023 10:47:32 Medical History No medical history recorded. Immunizations Vaccine Type Date Status Note Provider Nam e and Address Organization Details Recorded Time COVID-19, mRNA, LNP-S, PF, 30 mcg/0.3 mL dose 09/28/2020 completed CECILE reilly [facility] 05/21/2023 10:44:40 COVID-19, mRNA, LNP-S, PF, 30 mcg/0.3 mL dose 10/26/2020 completed CECILE reilly [facility] 05/21/2023 10:44:40 COVID-19, mRNA, LNP-S, PF, 30 mcg/0.3 mL dose 06/04/2021 completed Not Available [facility] 11:15:10 COVID-19, mRNA, LNP-S, PF, 30 mcg/0.3 mL dose 05/28/2021 completed CECILE reilly [facility] 05/21/2023 10:44:40 COVID-19, mRNA, LNP-S, PF, 30 mcg/0.3 mL dose, bhavana-sucrose 12/24/2021 completed CECILE reilly [facility] 05/21/2023 10:44:40 COVID-19, mRNA, LNP-S, bivalent, PF, 30 mcg/0.3 mL dose 05/20/2022 completed CECILE reilly [facility] 05/21/2023 10:44:40 Past Encounters Encounter ID Performer Location Encounter Start Date Encounter Closed Date Diagnosis/Indication Diagnosis SNOMED-CT Code Diagnosis ICD10 Code Diagnosis IMO Codes Diagnosis Note [id number] Darell Guillory MD [facility] ([facility]) [address] [place] [address] 5 05/15/2025 12:32:00 05/16/2025 10:05:38 Viral upper respiratory tract infection 155455107 J06.9 390188 Productive cough 6686008 5 R05.8 353295 cxr i do not see acute findings. however recent onset production to cough with abnormal breath sounds will tx for CAP [id number] Darell Guillory MD [facility] ([facility]) [address] [place] [address] 5 05/17/2025 09:46:29 05/18/2025 18:04:16 Pain of left knee joint 7682760745 61117 M25.562 915235 Fall in home 11043265 W1 9.XXXA Y92.009 [id number] Darell Guillory MD [facility] ([facility]) [address] [place] [address]49[address]157 5 05/24/2025 12:57:50 05/24/2025 16:21:23 Preoperative procedure 516818539 Z01.861 [id number] Darell Guillory MD [facility] ([facility]) [address] [place] [address] 5 06/08/2025 12:55:57 06/13/2025 12:01:17 Right lower quadrant pain 907644325 R10.31 864839 mosly likely hernia have noted before. it is not too bothersome . he will be careful and would only want surgery if worsening. Health Concerns Section Related Observation LastModified by Organization Detai ls LastModified Time None Recorded Concern Status LastModified by Organization Details LastModified Time None Recorded Payers Encounter Date Sequence Insurance Name Policy Number Policy Guillen Covered Member ID Guillen Member ID Guarantor Name 06/08/2025 1 [place] Jesus Avilez [id number] Jesus Avilez 06/08/2025 2 [employer] (MEDICARE SUPPLEMENT) Jesus Avilez [id number] Jesus Avilez Notes Date Note Type Note Provider Name and Address Organization Details Recorded Time text/html Abdominal PainReported by PatientAbdominal PainFor quality, [...] a painROS as noted in the HPI Darell Guillory MD [address] [place] [address], [phone], [facility] [place] 06/08/2025 13:25:52
--- OUTSIDE RECORDS SUMMARY | 2025-07-30 01:03 | XMS_ITS | Clinical Summary ---
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 Gender Identity Not on file Sexual Orientation [...] cm (5' 9 ) 09/26/2022 10:10 AM LUMP INSPECTOR Body Mass Index 24.37 09/26/2022 10:10 AM LUMP INSPECTOR Plan of Treatment Health Maintenance Due Date Last Done Comments DTAP/TDAP/TD VACCINES (1 - Tdap) 1961 PNEUMOCOCCAL VACCINE 50+ YEARS (1 of 1 - PCV) 04/25/19 92 ZOSTER VACCINE (1 of 2) 1992 RSV VACCINE (60+ or ) (1 - 1-dose 75+ series) 2017 INFLUENZA VACCINE (#1) 2025 Insurance MEDICARE PART A AND B [facility] [id number] Care Teams Children'S Nursery Assistant Relationship Specialty Start Date End Date Inocencio Valenzuela Jr., MD [address] [address] PCP - General Family Practice 09/30/10
--- OUTSIDE RECORDS SUMMARY | 2025-07-30 01:03 | XMS_ITS | Continuity of Care Document ---
Author Organization [place] - [facility] Evin Ren, [facility] ([facility]) Address [address] [place] [address] Care Team Providers Care Pan Devulcanizer Helper Name Role Phone KRISTEL GUILLORY Primary Care Provider Unavailabl e Assessment No assessment recorded. Plan of Treatment Reminders Order Date Submit Date Provider Last Modified By Organization Details Last Modified Time Details Appointments None recorded. Lab None recorded. Referral None recorded. Procedures None recorded. Surgeries None recorded. Imaging electrocard iogram 2024 025 [email or web address] [facility] ([facility]), [address] [place], [address], 16:21:23 Medication Orders None recorded. Patient TargetsNo targets recorded. Patient InstructionsNo instructions recorded. Reason for Referral None Reported. Results Created Date Observation Date Name Description Value Unit Range Abnormal Flag Note LastModifiedBy Organization Detail LastModifiedTime 05/04/2005/04/2025 URINA LYSIS WITH MICRO color YELLOW Not Available [facility] [address], [place], [address], 05/04/2025 14:20:15 05/04/20 25 05/04/2025 URINA LYSIS WITH MICRO clarity CLEAR Not Available [facility] [address], [place], [address], 05/04/2025 14:20:15 05/04/20 25 05/04/2025 URINA LYSIS WITH MICRO glu NEGATI VE Not Available [facility] [address] [facility] [address], [place], [address], 05/04/2025 14:20:15 05/04/20 25 05/04/2025 URINA LYSIS WITH MICRO bili NEGATI VE Not Available [facility] [address], [place], [address], 05/04/2025 14:20:15 05/04/20 25 05/04/2025 URINA LYSIS WITH MICRO ket NEGATI VE Not Available [facility] [address], [place], [address], 05/04/2025 14:20:15 05/04/20 25 05/04/2025 URINA LYSIS WITH MICRO S.g 1.010 1.005- 1.025 Not Available [facility] [address], [place], [address], 05/04/2025 14:20:15 05/04/20 25 05/04/2025 URINA LYSIS WITH MICRO pH 7.0 5.0-7. 0 Not Available [facility] [address], [place], [address], 05/04/2025 14:20:15 05/04/20 25 05/04/2025 URINA LYSIS WITH MICRO pro NEGATI VE Not Available [facility] [address], [place], [address], 05/04/2025 14:20:15 05/04/20 25 05/04/2025 URINA LYSIS WITH MICRO uro 0.2 Not Available [facility] [address], [place], [address], 05/04/2025 14:20:15 05/04/20 25 05/04/2025 URINA LYSIS WITH MICRO nit POSITI VE Not Available [facility] [address], [place], [address], 05/04/2025 14:20:15 05/04/20 25 05/04/2025 URINA LYSIS WITH MICRO blo NEGATI VE Not Available [facility] [address], [place], [address], 05/04/2025 14:20:15 05/04/20 25 05/04/2025 URINA LYSIS WITH MICRO abraham 1+ Not Available [facility] [address], [place], [address], 05/04/2025 14:20:15 05/04/20 25 05/04/2025 URINA LYSIS WITH MICRO WBC 80-100 Not Available [facility] [address], [place], [address], 05/04/2025 14:20:15 05/04/20 25 05/04/2025 URINA LYSIS WITH MICRO RBC 0 Not Available [facility] [address], [place], [address], 05/04/2025 14:20:15 05/04/20 25 05/04/2025 URINA LYSIS WITH MICRO epi cells 0 Not Available [facility] [address], [place], [address], 05/04/2025 14:20:15 05/04/20 25 05/04/2025 URINA LYSIS WITH MICRO bacteria 1+ AMORPH OUS Not Available [facility] [address], [place], [address], 05/04/2025 14:20:15 05/04/20 25 05/04/2025 URINA LYSIS WITH MICRO other NEGATI VE Not Available [facility] [address], [place], [address], 05/04/2025 14:20:15 04/28/20 25 04/28/2025 respi rator y patho gens DNA and RNA panel , PCR, nasop haryn x Covid negati ve Not Available [facility] ([facility]) [address] [place], [address], 04/28/2025 13:23:21 04/28/20 25 04/28/2025 respi rator y patho gens DNA and RNA panel , PCR, nasop haryn x Rhinovirus positi ve Not Available [facility] ([facility]) [address] [place], [address], 04/28/2025 13:23:21 04/28/20 25 04/28/2025 respi rator y patho gens DNA and RNA panel , PCR, nasop haryn x Influenza A negati ve Not Available [facility] ([facility]) [address] [place], [address], 04/28/2025 13:23:21 04/28/20 25 04/28/2025 respi rator y patho gens DNA and RNA panel , PCR, nasop haryn x Influenza B negati ve Not Available [facility] ([facility]) [address] [place], [address], 04/28/2025 13:23:21 04/28/20 25 04/28/2025 respi rator y patho gens DNA and RNA panel , PCR, nasop haryn x RSV negati ve Not Available [facility] ([facility]) [address] [place], [address], 04/28/2025 13:23:21 05/04/20 25 05/06/2025 CULTU RE, URINE , ROUTI NE culture, urine, routine SEE NOTE abnormal CULTU RE, URINE , ROUTI NE Micro Numbe r: [id number] Test Statu s: Final Speci men [...] lity) will be perfo rmed. Not Available [facility] [address] [place], [address], 05/06/2025 04:48:52 05/15/2005/15/2025 respi rator y patho gens DNA and RNA panel , PCR, nasop haryn x Covid negati ve Not Available [facility] ([facility]) [address] [place] [address], [address], 05/15/2025 12:52:26 05/15/2005/15/2025 respi rator y patho gens DNA and RNA panel , PCR, nasop haryn x Rhinovirus negati ve Not Available [facility] ([facility]) [address] [place] [address], [address], 05/15/2025 12:52:26 05/15/2005/15/2025 respi rator y patho gens DNA and RNA panel , PCR, nasop haryn x Influenza A negati ve Not Available [facility] ([facility]) [address] [place] [address], [address], 05/15/2025 12:52:26 05/15/2005/15/2025 respi rator y patho gens DNA and RNA panel , PCR, nasop haryn x Influenza B negati ve Not Available [facility] ([facility]) [address] [place] [address], [address], 05/15/2025 12:52:26 05/15/2005/15/2025 respi rator y patho gens DNA and RNA panel , PCR, nasop haryn x RSV negati ve Not Available [facility] ([facility]) [address] [place], [address], 05/15/2025 12:52:26 05/15/20 25 05/15/2025 XR, chest , 2 view No observ ation record ed. [facility] ([facility]) [address] [place], [address], 05/15/2025 15:43:12 05/15/20 25 05/15/2025 XR, chest , 2 view No observ ation record ed. [facility] ([facility]) [address] [place], [address], 05/15/2025 16:02:23 05/17/20 25 05/17/2025 XR, knee, 3 view No observ ation record ed. [facility] [address] [place], [address], 05/17/2025 16:42:58 05/24/20 25 05/24/2025 elect rocar diogr am No observ ation record ed. [facility] ([facility]) [address] [place], [address], 05/29/2025 09:00:21 05/24/2005/24/2025 elect rocar diogr am No observ ation record ed. [facility] ([facility]) [address] [place], [address], 05/25/2025 12:57:20 Result Notes None recorded. Problems Name Problem SNOMED Code Status Onset Date Resolution Date Notes Provider Name and Address Organization Details Recorded Time Benign prostatic hyperplasi a 796170852 Active 2022 BPH with urinary obstruct ion; 10/31/19 23 9:58AM by Sarah Taylor RN, Office Visit; Promoted ; acuity set as *; CECILE reilly, [facility], L.L.CAnnabella 5 12:02:34 Nocturnal epilepsy 015900785 [facility] 10:46:31 Atrial fibrillati on with rapid ventricula r response 236338480408 109 Active 2022 CECILE reilly [facility], L.L.CAnnabella 4 10:49:47 Problem Notes None recorded. Procedures Surgical History Date Name Laterality Status Provider Name and Address Organization Details Recorded Time 08/01/20 24 cardiovascular stress testing completed [facility], AdryL.CAnnabella 08/05/2024 11:09:31 07/01/20 18 total replacement of hip completed [facility], AdryLAnnabellaCAnnabella 05/21/2023 10:59:02 left atrial appendage closure completed Kristel Guillory MD [address] [place] [address], [phone], L.L.CAnnabella 06/09/2024 09:43:25 cardiac ablation for atrial fibrillation completed [facility], L[facility] 12/14/2024 12:07:15 arthroscopy of shoulder completed [facility], L.L.CAnnabella 05/21/2023 10:59:[address] [facility], L[facility] 05/21/2023 10:59:37 arthroscopy of knee completed [facility], L.L.CAnnabella 05/21/2023 10:59:54 Imaging Results None recorded. Procedure Notes None recorded. Medical Equipment None Reported. Allergies Allergen ID Allergen Name Allergen Category Reaction Reaction Severity Criticality Documentation Date Start Date Code Code System Note Provider Name and Address Organization Details Recorded Time 85662 levetirac etam medicatio n Not available Not available Not available 07/14/20252024 97186 7 RxNorm Sarahjamee GallagherCezarjenifer reilly, [facility], .Annabella. 12:10:04 Medications Name Sig Start Date Stop [...] by Senait Fine (Authori zed through Kristel Guillory MD), Refill Request; Refill Quantity : [...] Not Available Not Available Not Available Vitals None Recorded Social History Question Answer Notes LastModified by Organizat ion Details LastModified Time Tobacco Smoking Status Never Smoker CECILE DAY [facility] 12/09/2022 11:09:09 What Was The Date Of Your Most Recent Tobacco Screening? 04/28/2025 [email or web address] Information not available 04/28/2025 Have You Ever Been Counseled For Unhealthy Alcohol Use? No [email or web address] Information not available 12/09/2022 Sex: Unknown Functional Status Question Answer Note LastModified by Organizat ion Details LastModified Time Do you use any illicit or recreational drugs? No Information not available 02/11/2024 Do you or have you ever used any other forms of tobacco or nicotine? No [email or web address] Information not available 05/21/2023 What is your level of alcohol consumption? None Information not available 02/11/2024 Do you or have you ever used any nicotine-free cigarettes, vape, or chewing tobacco? No [email or web address] Information not available 03/16/2024 Mental Status None recorded. Family History Relationship Description Onset Age of this Age Resolved Age Notes LastModified by Organization Details LastModified Time Father Malignant neoplasm of oral cavity [email or web address] Not available 10:47:20 Father Alcoholism [email or web address] Not avail able 05/21/2023 10:47:26 Sister Asthma Not available 05/21/2023 10:47:32 Medical History No medical history recorded. Immunizations Vaccine Type Date Status Note Provider Nam e and Address Organization Details Recorded Time COVID-19, mRNA, LNP-S, PF, 30 mcg/0.3 mL dose 09/28/2020 completed CECILE reilly, [facility] 05/21/2023 10:44:40 COVID-19, mRNA, LNP-S, PF, 30 mcg/0.3 mL dose 10/26/2020 completed CECILE reilly, [facility] 05/21/2023 10:44:40 COVID-19, mRNA, LNP-S, PF, 30 mcg/0.3 mL dose 06/04/2021 completed Not Available [facility] 11:15:10 COVID-19, mRNA, LNP-S, PF, 30 mcg/0.3 mL dose 05/28/2021 completed CECILE reilly, [facility] 05/21/2023 10:44:40 COVID-19, mRNA, LNP-S, PF, 30 mcg/0.3 mL dose, bhavana-sucrose 12/24/2021 completed CECILE reilly, [facility] 05/21/2023 10:44:40 COVID-19, mRNA, LNP-S, bivalent, PF, 30 mcg/0.3 mL dose 05/20/2022 completed CECILE reilly, [facility] 05/21/2023 10:44:40 Past Encounters Encounter ID Performer Location Encounter Start Date Encounter Closed Date Diagnosis/Indication Diagnosis SNOMED-CT Code Diagnosis ICD10 Code Diagnosis IMO Codes Diagnosis Note [id number] RENETTA MEDINA [facility] ([facility]) [address] [place] [address] 04/28/2025 13:10:11 04/28/2025 14:26:33 Acute cough 5559868890 50367665 R05.1 4772822318 Disease ca used by Rhinovirus 49734509 B34.8 099876 Increase po fluids. Rest. May use otc meds as needed for symptoms. Return to clinic with any new or worsening symptoms. [id number] Kristel Guillory MD [facility] ([facility]) [address] [place] [phone] 05/04/2025 12:16:04 05/05/2025 09:34:58 Dysuria 38433228 R30.0 14375 Vertigo 929540780 R42 26847 [id number] Kristel Guillory MD [facility] ([facility]) [address] [place] [address] 05/04/2025 12:07:52 05/06/2025 04:03:49 Dysuria 79629255 R30.0 73629 [id number] Kristel Guillory MD [facility] ([facility]) [address] [place] [address] 05/15/2025 12:32:00 05/16/2025 10:05:38 Viral upper respiratory tract infection 373457455 J06.9 619325 Productive cough 4359821 5 R05.8 217167 cxr i do not see acute findings. however recent onset production to cough with abnormal breath sounds will tx for CAP [id number] Kristel Guillory MD [facility] ([facility]) [address] [place] [address] 05/17/2025 09:46:29 05/18/2025 18:04:16 Pain of left knee joint 2311783981 79499 M25.562 710013 Fall in home 70470496 W1 9.XXXA Y92.009 59851391 [id number] Kristel Guillory MD [facility] ([facility]) [address] [place] [address] 05/24/2025 12:57:50 05/24/2025 16:21:23 Preoperative procedure 441486861 Z01.512 [id number] Health Concerns Section Related Observation LastModified by Organization Detai ls LastModified Time None Recorded Concern Status LastModified by Organization Details LastModified Time None Recorded Payers Encounter Date Sequence Insurance Name Policy Number Policy Guillen Covered Member ID Guillen Member ID Guarantor Name 05/24/2025 1 [place] Jesus Avilez [id number] Jesus Avilez 05/24/2025 2 AARP (MEDICARE SUPPLEMENT) Jesus Avilez [id number] Jesus Avilez
--- OUTSIDE RECORDS SUMMARY | 2025-07-30 01:03 | XMS_ITS | Continuity of Care Document ---
Author Organization [facility] Evin Ren, [facility] ([facility]) Address [address] [place] [address] Care Team Providers Care Slate Picker Name Role Phone DARELL GUILLORY Primary Care Provider Unavailabl e Assessment Encounter Date Assessment Date Assessment LastModified by Organization Details LastModified Time 07/25/2025 07/25/2025 if sx's recur will need to contact cardiology for repeat stress testing but this is very atypical chest pain in a pt with a nromal stress test within the year. Not available 07/25/2025 12:39:34 Plan of Treatment Reminders Order Date Submit Date Provider Last Modified By Organization Details Last Modified Time Details Appointments None record ed. Lab None record ed. Referral None record ed. Procedures None record ed. Surgeries None record ed. Imaging None record ed. Medication Orders None record ed. Patient TargetsNo targets recorded. Patient InstructionsNo instructions recorded. Reason for Referral None Reported. 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 Procedures Surgical History Date Name Laterality Status Provider Name and Address Organization Details Recorded Time 08/01/20 24 cardiovascular stress testing completed [facility] 08/05/2024 11:09:31 07/01/20 18 total replacement of hip completed [facility] 05/21/2023 10:59:02 left atrial appendage closure completed Darell Guillory MD [address] [place] [address], [phone], L.L.CAnnabella 06/09/2024 09:43:25 cardiac ablation for atrial fibrillation completed [facility], L.L.CAnnabella 12/14/2024 12:07:15 arthroscopy of shoulder completed [facility] 05/21/2023 10:59:28 tonsillectomy completed [facility] 05/21/2023 10:59:37 arthroscopy of knee completed [facility] 05/21/2023 10:59:54 Imaging Results None recorded. Procedure Notes None recorded. Medical Equipment None Reported. Allergies Allergen ID Allergen Name Allergen Category Reaction Reaction Severity Criticality Documentation Date Start Date Code Code System Note Provider Name and Address Organization Details Recorded Time 17104 levetirac etam medicatio n Not available Not available Not available 07/14/20252024 21099 7 RxNorm Sarah Robb [facility], L.L.CAnnabella 12:10:04 Medications Name Sig Start Date Stop [...] day by oral route for 90 days. 01/09/ 2024 02/20 /2024 completed Not Available Not Available Not Available [...] Updated DateTime 5 170.18 cm 24 kg/m2 99054.6 3 g 97.4 [degF] 53 /min 97 % 120/68 mm[Hg] Sarah Cezar [facility] 5 12:11:29 Social History Question Answer Notes LastModified by Organizat ion Details LastModified Time Tobacco Smoking Status Never [facility]oker [facility] 12/09/2022 11:09:09 What Was The Date Of Your Most Recent Tobacco Screening? 04/28/2025 [email or web address] Information not available 04/28/2025 Have You Ever Been Counseled For Unhealthy Alcohol Use? No [email or web address] Information not available 12/09/2022 Sex: Unknown Functional Status Question Answer Note LastModified by Organizat ion Details LastModified Time Do you use any illicit or recreational drugs? No Information not available 02/11/2024 Do you or have you ever used any other forms of tobacco or nicotine? No [email or web address] Information not available 05/21/2023 What is your level of alcohol consumption? None Information not available 02/11/2024 Do you or have you ever used any nicotine-free cigarettes, vape, or chewing tobacco? No Information not available 03/16/2024 Mental Status None recorded. Family History Relationship Description Onset Age of this Age Resolved Age Notes LastModified by Organization Details LastModified Time Father Malignant neoplasm of oral cavity [email or web address] Not available 10:47:20 Father Alcoholism [email or web address] Not avail able 05/21/2023 10:47:26 Sister Asthma [email or web address] Not available 05/21/2023 10:47:32 Medical History No medical history recorded. Immunizations Vaccine Type Date Status Note Provider Nam e and Address Organization Details Recorded Time COVID-19, mRNA, LNP-S, PF, 30 mcg/0.3 mL dose 09/28/2020 completed CECILE reilly, [facility] 05/21/2023 10:44:40 COVID-19, mRNA, LNP-S, PF, 30 mcg/0.3 mL dose 10/26/2020 completed CECILE reilly, [facility] 05/21/2023 10:44:40 COVID-19, mRNA, LNP-S, PF, 30 mcg/0.3 mL dose 06/04/2021 completed Not Available [facility] 11:15:10 COVID-19, mRNA, LNP-S, PF, 30 mcg/0.3 mL dose 05/28/2021 completed CECILE reilly, [facility] 05/21/2023 10:44:40 COVID-19, mRNA, LNP-S, PF, 30 mcg/0.3 mL dose, bhavana-sucrose 12/24/2021 completed CECILE reilly, [facility] 05/21/2023 10:44:40 COVID-19, mRNA, LNP-S, bivalent, PF, 30 mcg/0.3 mL dose 05/20/2022 completed CECILE reilly, [facility] 05/21/2023 10:44:40 Past Encounters Encounter ID Performer Location Encounter Start Date Encounter Closed Date Diagnosis/Indication Diagnosis SNOMED-CT Code Diagnosis ICD10 Code Diagnosis IMO Codes Diagnosis Note [id number] Darell Guillory MD [facility] ([facility]) [address] [place] [phone] 07/14/2025 12:59:34 07/14/2025 13:53:14 Acute constipation 144802942 K59.00 936205 Taking Metamucilh e took just 30 ml of mom. repeat mom today up to 2 doses. f/u if not improved. [id number] Darell Guillory MD [facility] ([facility]) [address] [place] [phone] 07/25/2025 12:03:40 07/26/2025 09:52:16 Health Concerns Section Related Observation LastModified by Organization Detai ls LastModified Time None Recorded Concern Status LastModified by Organization Details LastModified Time None Recorded Payers Encounter Date Sequence Insurance Name Policy Number Policy Guillen Covered Member ID Guillen Member ID Guarantor Name 07/25/2025 1 [place]: [place] Jesus Avilez [id number] Jesus Avilez 07/25/2025 2 AARP (MEDICARE SUPPLEMENT) Jesus Lawsonlett [id number] Jesus Lovell [place] Notes Date Note Type Note Provider Name and Address Organization Details Recorded Time text/html ConstipationReported by PatientHPIFor quality, patient reportsimproving. For duration, patient reportspresent <1 month. For alleviating factors, patient reportshaving bowel movement. For associated symptoms, patient reportsno abdominal pain,no excess gas,no nausea,no vomiting,no blood in stool, andno black or tarry stools.his stool is soft and fored now.ROS as noted in the HPI Pt is here for a follow up on his constipation. He states he is back to having regular BMs and this issue is resolved. He did have right sided chest pain wake him up last night. It started about 1:00am. He fell back asleep and woke up intermittently throughout the course of 3 hours. After that it went away. He did not take anything when his chest was hurting. He declines SOB, arm pain, diaphoresis, etc. normal stress test 11 months ago. Darell Guillory MD [address] [place] [address], [phone], [facility] 07/25/2025 12:40:24
--- OUTSIDE RECORDS SUMMARY | 2025-07-30 01:03 | XMS_ITS | Continuity of Care Document ---
Author Organization [facility] Ortega [facility] Evin Ren, [facility] ([facility]) Address [address] [place] [address] Care Team Providers Care Sales Development Specialist Name Role Phone KRISTEL GUILLORY Primary Care Provider Unavailabl e Assessment No assessment recorded. Plan of Treatment Reminders Order Date Submit Date Provider Last Modified By Organization Details Last Modified Time Details Appointments None recorded. Lab urinalysis , complete 2024 025 WICHO [facility], [address], [address], [place], [address], 14:20:15 culture, urine 2024 025 Kenandy [facility], [address] [place] [address] [address], [address] [place], [address], 04:48:52 Referral None recorded. Procedures None recorded. Surgeries None recorded. Imaging None recorded. Medication Orders None recorded. Patient TargetsNo targets recorded. Patient InstructionsNo instructions recorded. Reason for Referral None Reported. Results Created Date Observation Date Name Description Value Unit Range Abnormal Flag Note LastModifiedBy Organization Detail LastModifiedTime 05/04/2005/04/2025 URINA LYSIS WITH MICRO color YELLOW Not Available [facility] [address], [place], [address], 05/04/2025 14:20:15 05/04/20 25 05/04/2025 URINA LYSIS WITH MICRO clarity CLEAR Not Available [facility] [address] [facility] [address], [place], [address], 05/04/2025 14:20:15 05/04/20 25 05/04/2025 URINA LYSIS WITH MICRO glu NEGATI VE Not Available [facility] [address], [place], [address], 05/04/2025 14:20:15 05/04/20 25 05/04/2025 URINA LYSIS WITH MICRO bili NEGATI VE Not Available [facility] [address], [place], [address], 05/04/2025 14:20:15 05/04/20 25 05/04/2025 URINA LYSIS WITH MICRO ket NEGATI VE Not Available [facility] [address], [place], [address], 05/04/2025 14:20:15 05/04/20 25 05/04/2025 URINA LYSIS WITH MICRO S.g 1.010 1.005- 1.025 Not Available [facility] [address], [place], [address], 05/04/2025 14:20:15 05/04/20 25 05/04/2025 URINA LYSIS WITH MICRO pH 7.0 5.0-7. 0 Not Available [facility] [address], [place], [address], 05/04/2025 14:20:15 05/04/20 25 05/04/2025 URINA LYSIS WITH MICRO pro NEGATI VE Not Available [facility] [address], [place], [address], 05/04/2025 14:20:15 05/04/20 25 05/04/2025 URINA LYSIS WITH MICRO uro 0.2 Not Available [facility] [address], [place], [address], 05/04/2025 14:20:15 05/04/20 25 05/04/2025 URINA LYSIS WITH MICRO nit POSITI VE Not Available [facility] [address], [place], [address], 05/04/2025 14:20:15 05/04/20 25 05/04/2025 URINA LYSIS WITH MICRO blo NEGATI VE Not Available [facility] [address], [place], [address], 05/04/2025 14:20:15 05/04/20 25 05/04/2025 URINA LYSIS WITH MICRO abraham 1+ Not Available [facility] [address], [place], [address], 05/04/2025 14:20:15 05/04/20 25 05/04/2025 URINA LYSIS WITH MICRO WBC 80-100 Not Available [facility] [address], [place], [address], 05/04/2025 14:20:15 05/04/20 25 05/04/2025 URINA LYSIS WITH MICRO RBC 0 Not Available [facility] [address], [place], [address], 05/04/2025 14:20:15 05/04/20 25 05/04/2025 URINA LYSIS WITH MICRO epi cells 0 Not Available [facility] [address], [place], [address], 05/04/2025 14:20:15 05/04/20 25 05/04/2025 URINA LYSIS WITH MICRO bacteria 1+ AMORPH OUS Not Available [facility] [address], [place], [address], 05/04/2025 14:20:15 05/04/20 25 05/04/2025 URINA LYSIS WITH MICRO other NEGATI VE Not Available [facility] [address] [place] [address], [address], 05/04/2025 14:20:15 04/28/20 25 04/28/2025 respi rator y patho gens DNA and RNA panel , PCR, nasop haryn x Covid negati ve Not Available [facility] ([facility]) [address] [place], [address], 04/28/2025 13:23:21 04/28/20 25 04/28/2025 respi rator y patho gens DNA and RNA panel , PCR, nasop haryn x Rhinovirus positi ve Not Available [facility] ([facility]) [address] [place], [address], 04/28/2025 13:23:21 04/28/20 25 04/28/2025 respi rator y patho gens DNA and RNA panel , PCR, nasop haryn x Influenza A negati ve Not Available [facility] ([facility]) [address] [place], [address], 04/28/2025 13:23:21 04/28/20 25 04/28/2025 respi rator y patho gens DNA and RNA panel , PCR, nasop haryn x Influenza B negati ve Not Available [facility] ([facility]) [address] [place], [address], 04/28/2025 13:23:21 04/28/20 25 04/28/2025 respi rator y patho gens DNA and RNA panel , PCR, nasop haryn x RSV negati ve Not Available [facility] ([facility]) [address] [place], [address], 04/28/2025 13:23:21 05/04/20 25 05/06/2025 CULTU RE, URINE , ROUTI NE culture, urine, routine SEE NOTE abnormal CULTU RE, URINE , ROUTI NE Micro Numbe r: [id number] Test Statu s: Final Speci men Sourc e: Urine , clean catch Speci men Quali ty: Adequ ate Resul t: 50,00 0-100 ,000 CFU/m L of Coagu lase negat mannie staph yloco ccus, not S. sapro phyti cus May repre sent colon izers from exter nal and inter nal genit niall. No furth er testi ng (incl uding susce ptibi lity) will be perfo rmed. Not Available [place] [address] [place], [address], 05/06/2025 04:48:52 05/15/20 25 05/15/2025 XR, chest , 2 view No observ ation record ed. [facility] ([facility]) [address] [place], [address], 05/15/2025 15:43:12 05/15/20 25 05/15/2025 XR, chest , 2 view No observ ation record ed. [facility] ([facility]) [address] [place], [address], 05/15/2025 16:02:23 05/17/20 25 05/17/2025 XR, knee, 3 view No observ ation record ed. [facility] [address] [place], [address], 05/17/2025 16:42:58 05/24/20 25 05/24/2025 elect rocar diogr am No observ ation record ed. [facility] ([facility]) [address] [place], [address], 05/29/2025 09:00:21 05/24/20 25 05/24/2025 elect rocar diogr am No observ ation record ed. W[facility] [address] [place], [address], 05/25/2025 12:57:20 Result Notes None recorded. Problems Name Problem SNOMED Code Status Onset Date Resolution Date Notes Provider Name and Address Organization Details Recorded Time Benign prostatic hyperplasi a 061889455 Active 2022 BPH with urinary obstruct ion; 10/31/19 23 9:58AM by Sarah Taylor RN, Office Visit; Promoted ; acuity set as *; CECILE reilly [facility] 5 12:02:34 Nocturnal epilepsy 421713869 Active [address] [facility] 3 10:46:31 Atrial fibrillati on with rapid ventricula r response 056833433051 109 Active [address] [facility] 4 10:49:47 Problem Notes None recorded. Procedures Surgical History Date Name Laterality Status Provider Name and Address Organization Details Recorded Time 08/01/20 24 cardiovascular stress testing completed CECILE DAY [facility] 08/05/2024 11:09:31 07/01/20 18 total replacement of hip completed CECILE DAY [facility] 05/21/2023 10:59:02 left atrial appendage closure completed Kristel Guillory MD [address] [place], [address], [facility] 06/09/2024 09:43:25 cardiac ablation for atrial fibrillation completed CECILE DAY [facility] 12/14/2024 12:07:15 arthroscopy of shoulder completed CECILE DAY [facility] 05/21/2023 10:59:28 [facility] 10:59:37 [facility] 10:59:54 Imaging Results None recorded. Procedure Notes None recorded. Medical Equipment None Reported. Allergies Allergen ID Allergen Name Allergen Category Reaction Reaction Severity Criticality Documentation Date Start Date Code Code System Note Provider Name and Address Organization Details Recorded Time 97530 levetirac etam medicatio n Not available Not available Not available 07/14/20252024 73809 7 RxNorm Sarahjamee GallagherCezarjenifer reilly [facility], Evin 12:10:04 Medications Name Sig Start Date [...] 03/07/20 22 10:00AM by Senait Fine (Authori tanner through Kristel Guillory MD), Refill Request; Refill Quantity : 180; Capsule; Not Available Not Available Not Available ibuprofen as needed 05/21 completed 0; Recorded 10/31/19 23 9:58AM by Sarah Taylor RN, Office Visit; Not Available Not Available Not Available Metamucil daily active 0; Recorded 10/31/19 9:58AM by Sarah Taylor RN, Office [...] Last Updated DateTime 170.18 cm 24 kg/m2 09954.6 3 g 96.9 [degF] 52 /min 96 % 118/60 mm[Hg] Sarah Robb [facility] 12:27:53 Social History Question Answer Notes LastModified by [employer] Details LastModified Time Tobacco Smoking Status Never Smoker CECILE reilly [facility] 12/09/2022 11:09:09 What Was The Date Of Your Most Recent Tobacco Screening? 04/28/2025 [email or web address] Information not available 04/28/2025 Have You Ever Been Counseled For Unhealthy Alcohol Use? No [email or web address] Information not available 12/09/2022 Sex: Unknown Functional Status Question Answer Note LastModified by Organizat ion Details LastModified Time Do you use any illicit or recreational drugs? No [email or web address] Information not available 02/11/2024 Do you or have you ever used any other forms of tobacco or nicotine? No Information not available 05/21/2023 What is your level of alcohol consumption? [email or web address] Information not available 02/11/2024 Do you or have you ever used any nicotine-free cigarettes, vape, or chewing tobacco? No [email or web address] Information not available 03/16/2024 Mental Status None recorded. Family History Relationship Description Onset Age of this Age Resolved Age Notes LastModified by Organization Details LastModified Time Father Malignant neoplasm of oral cavity Not available 10:47:20 Father Alcoholism [email or web address] Not avail able 05/21/2023 10:47:26 Sister Asthma [email or web address] Not available 05/21/2023 10:47:32 Medical History No medical history recorded. Immunizations Vaccine Type Date Status Note Provider Nam e and Address Organization Details Recorded Time COVID-19, mRNA, LNP-S, PF, 30 mcg/0.3 mL dose 09/28/[address] [facility] 05/21/2023 10:44:40 COVID-19, mRNA, LNP-S, PF, 30 mcg/0.3 mL dose 10/26/[address] [facility] 05/21/2023 10:44:40 COVID-19, mRNA, LNP-S, PF, 30 mcg/0.3 mL dose 06/04/2021 completed Not Available [facility] 11:15:10 COVID-19, mRNA, LNP-S, PF, 30 mcg/0.3 mL dose 05/28/[address] [facility] 05/21/2023 10:44:40 COVID-19, mRNA, LNP-S, PF, 30 mcg/0.3 mL dose, bhavana-sucrose 12/24/[address] [facility] 05/21/2023 10:44:40 COVID-19, mRNA, LNP-S, bivalent, PF, 30 mcg/0.3 mL dose 05/20/2022 completed CECILE DAY [facility], AdryLOtf 05/21/2023 10:44:40 Past Encounters Encounter ID Performer Location Encounter Start Date Encounter Closed Date Diagnosis/Indication Diagnosis SNOMED-CT Code Diagnosis ICD10 Code Diagnosis IMO Codes Diagnosis Note [id number] RENETTA MEDINA [facility] ([facility]) [address] [place], [place] [phone] 04/28/2025 13:10:11 04/28/2025 14:26:33 Acute cough 3021056123 46367724 R05.5 1635754199 Disease ca used by Rhinovirus 29895584 B34.8 977822 Increase po fluids. Rest. May use otc meds as needed for symptoms. Return to clinic with any new or worsening symptoms. [id number] Kristel Guillory MD [facility] ([facility]) [address] [place], [place] [phone] 05/04/2025 12:16:04 05/05/2025 09:34:58 Dysuria 30638184 R30.0 20422 Vertigo 779426831 R42 01249 [id number] Kristel Guillory MD [facility] ([facility]) [address] [place] [address] 05/04/2025 12:07:52 05/06/2025 04:03:49 Dysuria 80263859 R30.0 76207 Health Concerns Section Related Observation LastModified by Organization Detai ls LastModified Time None Recorded Concern Status LastModified by Organization Details LastModified Time None Recorded Payers Encounter Date Sequence Insurance Name Policy Number Policy Guillen Covered Member ID Guillen Member ID Guarantor Name 05/04/2025 1 [place] Jesus Avilez [id number] Jesus Avilez 05/04/2025 2 [employer] (MEDICARE SUPPLEMENT) Jesus Avilez [id number] Jesus Avilez Notes Date Note Type Note Provider Name and Address Organization Details Recorded Time 05/04/2025 text/html Pt states he believes he has [...] nose and cough this is better. Kristel Guillory MD [address] [place] [address], [phone], [facility], Evin 05/04/2025 12:52:29
--- OUTSIDE RECORDS SUMMARY | 2025-07-30 01:04 | XMS_ITS | Continuity of Care Document ---
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 Plan of Treatment Reminders Order Date Submit Date Provider Last Modified By Organization Details Last Modified Time Details Appointments None recorded. Lab respiratory pathogens DNA and RNA panel, PCR, nasopharynx 2024 025 [facility] ([facility]), [address] [place], [address], 13:38:02 Referral None recorded. Procedures None recorded. Surgeries None recorded. Imaging XR, chest, 2 view 2024 025 [email or web address] [facility] ([facility]), [address] [place], [address], 14:03:58 Medication Orders azithromyci n 250 mg tablet 2024 025 [facility], [address], [place], [address], 13:01:19 amoxicillin 875 mg-potassiu m clavulanate 125 mg tablet 2024 025 [facility], [address], [place], [address], 05:01:15 Patient TargetsNo targets recorded. Patient InstructionsNo instructions recorded. Reason for Referral None Reported. Results Created Date Observation Date Name Description Value Unit Range Abnormal Flag Note LastModifiedBy Organization Detail LastModifiedTime 05/04/2005/04/2025 URINA LYSIS WITH MICRO color YELLOW Not Available [facility] [address], [place], [address], 05/04/2025 14:20:15 05/04/20 25 05/04/2025 URINA LYSIS WITH MICRO clarity CLEAR Not Available [facility] [address], [place], [address], 05/04/2025 14:20:15 05/04/20 25 05/04/2025 URINA LYSIS WITH MICRO glu NEGATI VE Not Available [facility] [address], [place], [address], 05/04/2025 14:20:15 05/04/20 25 05/04/2025 URINA LYSIS WITH MICRO bili NEGATI VE Not Available [facility] [address], [place], [address], 05/04/2025 14:20:15 05/04/20 25 05/04/2025 URINA LYSIS WITH MICRO ket NEGATI VE Not Available [facility] [address], [place], [address], 05/04/2025 14:20:15 05/04/20 25 05/04/2025 URINA LYSIS WITH MICRO S.g 1.010 1.005- 1.025 Not Available [facility] [address], [place], [address], 05/04/2025 14:20:15 05/04/20 25 05/04/2025 URINA LYSIS WITH MICRO pH 7.0 5.0-7. 0 Not Available [facility] [address], [place], [address], 05/04/2025 14:20:15 05/04/20 25 05/04/2025 URINA LYSIS WITH MICRO pro NEGATI VE Not Available [facility] [address], [place], [address], 05/04/2025 14:20:15 05/04/20 25 05/04/2025 URINA LYSIS WITH MICRO uro 0.2 Not Available [facility] [address], [place], [address], 05/04/2025 14:20:15 05/04/20 25 05/04/2025 URINA LYSIS WITH MICRO nit POSITI VE Not Available [facility] [address], [place], [address], 05/04/2025 14:20:15 05/04/20 25 05/04/2025 URINA LYSIS WITH MICRO blo NEGATI VE Not Available [facility] [address], [place], [address], 05/04/2025 14:20:15 05/04/20 25 05/04/2025 URINA LYSIS WITH MICRO abraham 1+ Not Available [facility] [address], [place], [address], 05/04/2025 14:20:15 05/04/20 25 05/04/2025 URINA LYSIS WITH MICRO WBC 80-100 Not Available [facility] [address], [place], [address], 05/04/2025 14:20:15 05/04/20 25 05/04/2025 URINA LYSIS WITH MICRO RBC 0 Not Available [facility] [address], [place], [address], 05/04/2025 14:20:15 05/04/20 25 05/04/2025 URINA LYSIS WITH MICRO epi cells 0 Not Available [facility] [address] [facility] [address], [place], [address], 05/04/2025 14:20:15 05/04/20 25 05/04/2025 URINA LYSIS WITH MICRO bacteria 1+ AMORPH OUS Not Available [facility] [address] [facility] [address], [place], [address], 05/04/2025 14:20:15 05/04/20 25 05/04/2025 URINA LYSIS WITH MICRO other NEGATI VE Not Available [facility] [address] [facility] [address], [place], [address], 05/04/2025 14:20:15 04/28/20 25 04/28/2025 respi rator y patho gens DNA and RNA panel , PCR, nasop haryn x Covid negati ve Not Available [facility] ([facility]) [address] [place] [address], [address], 04/28/2025 13:23:21 04/28/20 25 04/28/2025 respi rator y patho gens DNA and RNA panel , PCR, nasop haryn x Rhinovirus positi ve Not Available [facility] ([facility]) [address] [place] [address], [address], 04/28/2025 13:23:21 04/28/20 25 04/28/2025 respi rator y patho gens DNA and RNA panel , PCR, nasop haryn x Influenza A negati ve Not Available [facility] ([facility]) [address] [place] [address], [address], 04/28/2025 13:23:21 04/28/20 25 04/28/2025 respi rator y patho gens DNA and RNA panel , PCR, nasop haryn x Influenza B negati ve Not Available [facility] ([facility]) [address] [place], [address], 04/28/2025 13:23:21 04/28/20 25 04/28/2025 respi rator y patho gens DNA and RNA panel , PCR, nasop haryn x RSV negati ve Not Available [facility] ([facility]) [address] [place], [address], 04/28/2025 13:23:21 05/04/20 25 05/06/2025 CULTU RE, URINE , ROUTI NE culture, urine, routine SEE NOTE abnormal CULTU RE, URINE , ROUTI NE Micro Numbe r: [id number] Test Statu s: Final Speci men [...] lity) will be perfo rmed. Not Available [facility] [address], [place], [address], 05/06/2025 04:48:52 05/15/2005/15/2025 respi rator y patho gens DNA and RNA panel , PCR, nasop haryn x Covid negati ve Not Available [facility] ([facility]) [address] [place], [address], 05/15/2025 12:52:26 05/15/20 25 05/15/2025 respi rator y patho gens DNA and RNA panel , PCR, nasop haryn x Rhinovirus negati ve Not Available [facility] ([facility]) [address] [place], [address], 05/15/2025 12:52:26 05/15/20 25 05/15/2025 respi rator y patho gens DNA and RNA panel , PCR, nasop haryn x Influenza A negati ve Not Available [facility] ([facility]) [address] [place], [address], 05/15/2025 12:52:26 05/15/20 25 05/15/2025 respi rator y patho gens DNA and RNA panel , PCR, nasop haryn x Influenza B negati ve Not Available [facility] ([facility]) [address] [place], [address], 05/15/2025 12:52:26 05/15/20 25 05/15/2025 respi rator y patho gens DNA and RNA panel , PCR, nasop haryn x RSV negati ve Not Available [facility] ([facility]) [address] [place], [address], 05/15/2025 12:52:26 05/15/2005/15/2025 XR, chest , 2 view No observ ation record ed. [facility] ([facility]) [address] [place], [address], 05/15/2025 15:43:12 05/15/2005/15/2025 XR, chest , 2 view No observ ation record ed. [facility] ([facility]) [address] [place], [address], 05/15/2025 16:02:23 05/17/2005/17/2025 XR, knee, 3 view No observ ation record ed. [facility] [address] [place], [address], 05/17/2025 16:42:58 05/24/20 25 05/24/2025 elect rocar diogr am No observ ation record ed. [facility] ([facility]) [address] [place], [address], 05/29/2025 09:00:21 05/24/20 25 05/24/2025 elect rocar diogr am No observ ation record ed. [facility] ([facility]) [address] [place], [address], 05/25/2025 12:57:20 Result Notes None recorded. Problems Name Problem SNOMED Code Status Onset Date Resolution Date Notes Provider Name and Address Organization Details Recorded Time Benign prostatic hyperplasi a 758910545 Active 2022 BPH with urinary obstruct ion; 10/31/19 9:58AM by Sarah Taylor RN, Office Visit; Promoted ; acuity set as *; CECILE reilly [facility] 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 3 10:46:31 Atrial fibrillati on with rapid ventricula r response 810284249041 109 Active 2022 CECILE reilly [facility] 4 10:49:47 Problem Notes None recorded. Procedures Surgical History Date Name Laterality Status Provider Name and Address Organization Details Recorded Time 08/01/20 24 cardiovascular stress testing completed CECILE DAY [facility] 08/05/2024 11:09:31 07/01/20 18 total replacement of hip completed CECILE DAY [facility] 05/21/2023 10:59:02 left atrial appendage closure completed Kristel Jackson MD [address] [place], [address], [facility] 06/09/2024 09:43:25 cardiac ablation for atrial fibrillation completed [facility] [place] 12/14/2024 12:07:15 arthroscopy of shoulder completed [facility], L[facility]abellaLOtf 05/21/2023 10:59:28 tonsillectomy completed [facility], Evin 05/21/2023 10:59:37 arthroscopy of knee completed [facility], Evin 05/21/2023 10:59:54 Imaging Results None recorded. Procedure Notes None recorded. Medical Equipment None Reported. Allergies Allergen ID Allergen Name Allergen Category Reaction Reaction Severity Criticality Documentation Date Start Date Code Code System Note Provider Name and Address Organization Details Recorded Time 48812 levetirac etam medicatio n Not available Not available Not available 07/14/20252024 44693 7 RxNorm Sarah Robb [facility] 12:10:04 Medications Name Sig Start Date Stop [...] 436; Recorded 03/07/20 10:00AM by Senait Fine (i tanner through Kristel Jackson MD), Refill Request; Refill Quantity : 180; Capsule; Not Available Not Available Not Available ibuprofen as needed 05/21 completed 0; Recorded 10/31/19 9:58AM by Sarah Taylor [...] Updated DateTime 5 170.18 cm 24.1 kg/m2 85945.2 2 g 97.2 [degF] 56 /min 97 % 118/74 mm[Hg] Sarah Robb [facility] 5 12:39:38 Social History Question Answer Notes LastModified by Organizat ion Details LastModified Time Tobacco Smoking Status Never Smoker CECILE reilly [facility] 12/09/2022 11:09:09 What Was The Date Of Your Most Recent Tobacco Screening? 04/28/2025 [email or web address] Information not available 04/28/2025 Have You Ever Been Counseled For Unhealthy Alcohol Use? No [email or web address] Information not available 12/09/2022 Sex: Unknown Functional Status Question Answer Note LastModified by Organizat ion Details LastModified Time Do you use any illicit or recreational drugs? No Information not available 02/11/2024 Do you or have you ever used any other forms of tobacco or nicotine? No [email or web address] Information not available 05/21/2023 What is your level of alcohol consumption? None Information not available 02/11/2024 Do you or have you ever used any nicotine-free cigarettes, vape, or chewing tobacco? No [email or web address] Information not available 03/16/2024 Mental Status None recorded. Family History Relationship Description Onset Age of this Age Resolved Age Notes LastModified by Organization Details LastModified Time Father Malignant neoplasm of oral cavity [email or web address] Not available 10:47:20 Father Alcoholism [email or web address] Not avail able 05/21/2023 10:47:26 Sister Asthma [email or web address] Not available 05/21/2023 10:47:32 Medical History No medical history recorded. Immunizations Vaccine Type Date Status Note Provider Nam e and Address Organization Details Recorded Time COVID-19, mRNA, LNP-S, PF, 30 mcg/0.3 mL dose 09/28/2020 [facility] 05/21/2023 10:44:40 COVID-19, mRNA, LNP-S, PF, 30 mcg/0.3 mL dose 10/26/2020 [facility] 05/21/2023 10:44:40 COVID-19, mRNA, LNP-S, PF, 30 mcg/0.3 mL dose 06/04/2021 completed Not Available [facility] 11:15:10 COVID-19, mRNA, LNP-S, PF, 30 mcg/0.3 mL dose 05/28/2021 completed CECILE reilly [facility] 05/21/2023 10:44:40 COVID-19, mRNA, LNP-S, PF, 30 mcg/0.3 mL dose, bhavana-sucrose 12/24/2021 completed CECILE reilly, [facility] 05/21/2023 10:44:40 COVID-19, mRNA, LNP-S, bivalent, PF, 30 mcg/0.3 mL dose 05/20/2022 completed CECILE reilly, [facility] 05/21/2023 10:44:40 Past Encounters Encounter ID Performer Location Encounter Start Date Encounter Closed Date Diagnosis/Indication Diagnosis SNOMED-CT Code Diagnosis ICD10 Code Diagnosis IMO Codes Diagnosis Note [id number] RENETTA MEDINA [facility] ([facility]) [address] [place] [phone] 04/28/2025 13:10:11 04/28/2025 14:26:33 Acute cough 6961587916 24421071 R05.5 3260170105 Disease ca used by Rhinovirus 81178717 B34.8 363078 Increase po fluids. Rest. May use otc meds as needed for symptoms. Return to clinic with any new or worsening symptoms. [id number] Kristel Jackson MD [facility] ([facility]) [address] [place] [phone] 05/04/2025 12:16:04 05/05/2025 09:34:58 Dysuria 43057398 R30.0 [id number] Vertigo 867216004 R42 [id number] [id number] Kristel Jackson MD [facility] ([facility]) [address] [place] [phone] 05/04/2025 12:07:52 05/06/2025 04:03:49 Dysuria 90524301 R30.0 [id number] Kristel Jackson MD [facility] ([facility]) [address] [place] [phone] 05/15/2025 12:32:00 05/16/2025 10:05:38 Viral upper respiratory tract infection 786751655 J06.9 464490 Productive cough 9586250 5 R05.8 209920 cxr i do not see acute findings. however recent onset production to cough with abnormal breath sounds will tx for [facility] Concerns Section Related Observation LastModified by Organization Detai ls LastModified Time None Recorded Concern Status LastModified by Organization Details LastModified Time None Recorded Payers Encounter Date Sequence Insurance Name Policy Number Policy Guillen Covered Member ID Guillen Member ID Guarantor Name 05/15/2025 1 [place] Jesus Lovell [place] [id number] Jesus Lovell [employer] 05/15/2025 2 [employer] (MEDICARE SUPPLEMENT) Jesus Lovell [place] [id number] Jesus Lovell [employer] Notes Date Note Type Note Provider Name and Address Organization Details Recorded Time 05/15/2025 text/html Upper Respirator y SymptomsReported by PatientUpper Respiratory SymptomsFor quality, patient [...] occasion.he will cough for a 2-3 minute [email or web address] Kristel Jackson MD [address] [place] [address], [address], [facility] 05/15/2025 14:01:19
--- OUTSIDE RECORDS SUMMARY | 2025-07-30 01:04 | XMS_ITS | Continuity of Care Document ---
Author Organization [facility] Jordan Vale [facility] Evin Ren, [facility] ([facility]) Address [address] [place] [place] [address] Care Team Providers Care Paper Machine Back Tender Name Role Phone KRISTEL GUILLORY Primary Care Provider Unavailabl e Assessment Encounter Date Assessment Date Assessment LastModified by Organization Details LastModified Time 05/17/2025 05/17/2025 rice therapy f/u if worsening or not improving weekly. lower respiratory infeciton is significantly improved [email or web address] Not available 05/17/2025 10:11:18 Plan of Treatment Reminders Order Date Submit Date Provider Last Modified By Organization Details Last Modified Time Details Appointments None record ed. Lab None record ed. Referral None record ed. Procedures None record ed. Surgeries None record ed. Imaging XR, knee, 3 view 025 05/17/20 25 [email or web address] [facility] ([facility]), [address] [place], [address], 18:04:16 Medication Orders None record ed. Patient TargetsNo targets recorded. Patient InstructionsNo instructions recorded. Reason for Referral None Reported. Results Created Date Observation Date Name Description Value Unit Range Abnormal Flag Note LastModifiedBy Organization Detail LastModifiedTime 05/04/2005/04/2025 URINA LYSIS WITH MICRO color YELLOW Not Available [facility] [address] [facility] [address], [place], [address], 05/04/2025 14:20:15 05/04/20 25 05/04/2025 URINA LYSIS WITH MICRO clarity CLEAR Not Available [facility] [address] [facility] [address], [place], [address], 05/04/2025 14:20:15 05/04/20 25 05/04/2025 URINA LYSIS WITH MICRO glu NEGATI VE Not Available [facility] [address], [place], [address], 05/04/2025 14:20:15 05/04/20 25 05/04/2025 URINA LYSIS WITH MICRO bili NEGATI VE Not Available [facility] [address], [place], [address], 05/04/2025 14:20:15 05/04/20 25 05/04/2025 URINA LYSIS WITH MICRO ket NEGATI VE Not Available [facility] [address], [place], [address], 05/04/2025 14:20:15 05/04/20 25 05/04/2025 URINA LYSIS WITH MICRO S.g 1.010 1.005- 1.025 Not Available [facility] [address], [place], [address], 05/04/2025 14:20:15 05/04/20 25 05/04/2025 URINA LYSIS WITH MICRO pH 7.0 5.0-7. 0 Not Available [facility] [address], [place], [address], 05/04/2025 14:20:15 05/04/20 25 05/04/2025 URINA LYSIS WITH MICRO pro NEGATI VE Not Available [facility] [address], [place], [address], 05/04/2025 14:20:15 05/04/20 25 05/04/2025 URINA LYSIS WITH MICRO uro 0.2 Not Available [facility] [address], [place], [address], 05/04/2025 14:20:15 05/04/20 25 05/04/2025 URINA LYSIS WITH MICRO nit POSITI VE Not Available [facility] [address], [place], [address], 05/04/2025 14:20:15 05/04/20 25 05/04/2025 URINA LYSIS WITH MICRO blo NEGATI VE Not Available [facility] [address], [place], [address], 05/04/2025 14:20:15 05/04/20 25 05/04/2025 URINA LYSIS WITH MICRO abraham 1+ Not Available [facility] [address], [place], [address], 05/04/2025 14:20:15 05/04/20 25 05/04/2025 URINA LYSIS WITH MICRO WBC 80-100 Not Available [facility] [address], [place], [address], 05/04/2025 14:20:15 05/04/20 25 05/04/2025 URINA LYSIS WITH MICRO RBC 0 Not Available [facility] [address], [place], [address], 05/04/2025 14:20:15 05/04/20 25 05/04/2025 URINA LYSIS WITH MICRO epi cells 0 Not Available [facility] [address], [place], [address], 05/04/2025 14:20:15 05/04/20 25 05/04/2025 URINA LYSIS WITH MICRO bacteria 1+ AMORPH OUS Not Available [facility] [address], [place], [address], 05/04/2025 14:20:15 05/04/20 25 05/04/2025 URINA LYSIS WITH MICRO other NEGATI VE Not Available [facility] [address] [place] [address], [address], 05/04/2025 14:20:15 04/28/20 25 04/28/2025 respi rator y patho gens DNA and RNA panel , PCR, nasop haryn x Covid negati ve Not Available [facility] ([facility]) [address] [place], [address], 04/28/2025 13:23:21 04/28/20 25 04/28/2025 respi rator y patho gens DNA and RNA panel , PCR, nasop haryn x Rhinovirus positi ve Not Available [facility] ([facility]) [address] [place] [address], [address], 04/28/2025 13:23:21 04/28/20 25 04/28/2025 respi rator y patho gens DNA and RNA panel , PCR, nasop haryn x Influenza A negati ve Not Available [facility] ([facility]) [address] [place] [address], [address], 04/28/2025 13:23:21 04/28/20 25 04/28/2025 respi rator y patho gens DNA and RNA panel , PCR, nasop haryn x Influenza B negati ve Not Available [facility] ([facility]) [address] [place], [address], 04/28/2025 13:23:21 04/28/20 25 04/28/2025 respi rator y patho gens DNA and RNA panel , PCR, nasop haryn x RSV negati ve Not Available [facility] ([facility]) [address] [place] [address], [address], 04/28/2025 13:23:21 05/04/20 25 05/06/2025 CULTU RE, URINE , ROUTI NE culture, urine, routine SEE NOTE abnormal CULTU RE, URINE , ROUTI NE Micro Numbe r: [id number] Test Statu s: Final Speci men [...] lity) will be perfo rmed. Not Available [facility] [address] [place], [address], 05/06/2025 04:48:52 05/15/2005/15/2025 respi rator y patho gens DNA and RNA panel , PCR, nasop haryn x Covid negati ve Not Available [facility] ([facility]) [address] [place] [address], [address], 05/15/2025 12:52:26 05/15/2005/15/2025 respi rator y patho gens DNA and RNA panel , PCR, nasop haryn x Rhinovirus negati ve Not Available [facility] ([facility]) [address] [place] [address], [address], 05/15/2025 12:52:26 05/15/2005/15/2025 respi rator y patho gens DNA and RNA panel , PCR, nasop haryn x Influenza A negati ve Not Available [facility] ([facility]) [address] [place], [address], 05/15/2025 12:52:26 05/15/20 25 05/15/2025 respi rator y patho gens DNA and RNA panel , PCR, nasop haryn x Influenza B negati ve Not Available [facility] ([facility]) [address] [place], [address], 05/15/2025 12:52:26 05/15/2005/15/2025 respi rator y patho gens DNA and RNA panel , PCR, nasop haryn x RSV negati ve Not Available [facility] ([facility]) [address] [place], [address], 05/15/2025 12:52:26 05/15/20 25 05/15/2025 XR, chest , 2 view No observ ation record ed. [facility] ([facility]) [address] [place], [address], 05/15/2025 15:43:12 05/15/20 25 05/15/2025 XR, chest , 2 view No observ ation record ed. [facility] ([facility]) [address] [place], [address], 05/15/2025 16:02:23 05/17/2005/17/2025 XR, knee, 3 view No observ ation record ed. [facility] [address] [place], [address], 05/17/2025 16:42:58 05/24/20 25 05/24/2025 elect rocar diogr am No observ ation record ed. [facility] ([facility]) [address] [place], [address], 05/29/2025 09:00:21 05/24/2005/24/2025 elect rocar diogr am No observ ation record ed. [facility] ([facility]) [address] [place], [address], 05/25/2025 12:57:20 Result Notes None recorded. 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 Procedures Surgical History Date Name Laterality Status Provider Name and Address Organization Details Recorded Time 08/01/20 24 cardiovascular stress testing completed [facility][note 3], L.L.CAnnabella 08/05/2024 11:09:31 07/01/20 18 total replacement of hip completed [facility][note 3], L.L.CAnnabella 05/21/2023 10:59:02 left atrial appendage closure completed Kristel Guillory MD [address] [place] [address], [phone], L.L.CAnnabella 06/09/2024 09:43:25 cardiac ablation for atrial fibrillation completed [facility][note 3], L[facility]L.C. 12/14/2024 12:07:15 arthroscopy of shoulder completed [facility][note 3], L.L.CAnnabella 05/21/2023 10:59:28 tonsillectomy completed [facility][note 3], L.L.C. 05/21/2023 10:59:37 arthroscopy of knee completed [facility][note 3], L.L.CAnnabella 05/21/2023 10:59:54 Imaging Results None recorded. Procedure Notes None recorded. Medical Equipment None Reported. Allergies Allergen ID Allergen Name Allergen Category Reaction Reaction Severity Criticality Documentation Date Start Date Code Code System Note Provider Name and Address Organization Details Recorded Time 14529 levetirac etam medicatio n Not available Not available Not available 07/14/20252024 72436 7 RxNorm Sarah Gallagherjenifer [facility] 12:10:04 Medications Name Sig Start Date Stop [...] Last Updated DateTime 170.18 cm 24 kg/m2 54295.6 3 g 97.4 [degF] 67 /min 96 % 110/60 mm[Hg] CECILE DAY [facility], L.L.CAnnabella 09:51:18 Social History Question Answer Notes LastModified by [employer] Details LastModified Time Tobacco Smoking Status Never Smoker CECILE DAY [facility], L.L.CAnnabella 12/09/2022 11:09:09 What Was The Date Of Your Most Recent Tobacco Screening? 04/28/2025 [email or web address] Information not available 04/28/2025 Have You Ever Been Counseled For Unhealthy Alcohol Use? No samantha Information not available 12/09/2022 Sex: Unknown Functional Status Question Answer Note LastModified by [employer] Details LastModified Time Do you use any illicit or recreational drugs? No Information not available 02/11/2024 Do you or have you ever used any other forms of tobacco or nicotine? No [email or web address] Information not available 05/21/2023 What is your level of alcohol consumption? None Information not available 02/11/2024 Do you or have you ever used any nicotine-free cigarettes, vape, or chewing tobacco? No [email or web address] Information not available 03/16/2024 Mental Status None recorded. Family History Relationship Description Onset Age of this Age Resolved Age Notes LastModified by Organization Details LastModified Time Father Malignant neoplasm of oral cavity [email or web address] Not available 10:47:20 Father Alcoholism [email or web address] Not avail able 05/21/2023 10:47:26 Sister Asthma [email or web address] Not available 05/21/2023 10:47:32 Medical History No medical history recorded. Immunizations Vaccine Type Date Status Note Provider Nam e and Address Organization Details Recorded Time COVID-19, mRNA, LNP-S, PF, 30 mcg/0.3 mL dose 09/28/2020 completed CECILE reilly [facility], [facility] 05/21/2023 10:44:40 COVID-19, mRNA, LNP-S, PF, 30 mcg/0.3 mL dose 10/26/2020 completed CECILE reilly [facility] 05/21/2023 10:44:40 COVID-19, mRNA, LNP-S, PF, 30 mcg/0.3 mL dose 06/04/2021 completed Not Available [facility] 11:15:10 COVID-19, mRNA, LNP-S, PF, 30 mcg/0.3 mL dose 05/28/2021 completed CECILE reilly [facility] 05/21/2023 10:44:40 COVID-19, mRNA, LNP-S, PF, 30 mcg/0.3 mL dose, bhavana-sucrose 12/24/2021 completed CECILE reilly [facility] 05/21/2023 10:44:40 COVID-19, mRNA, LNP-S, bivalent, PF, 30 mcg/0.3 mL dose 05/20/2022 completed CECILE reilly [facility] 05/21/2023 10:44:40 Past Encounters Encounter ID Performer Location Encounter Start Date Encounter Closed Date Diagnosis/Indication Diagnosis SNOMED-CT Code Diagnosis ICD10 Code Diagnosis IMO Codes Diagnosis Note [id number] RENETTA MEDINA [facility] ([facility]) [address] [place] [address] 04/28/2025 13:10:11 04/28/2025 14:26:33 Acute cough 9160796787 22703766 R05.0 9176200803 Disease ca used by Rhinovirus 90231857 B34.8 013203 Increase po fluids. Rest. May use otc meds as needed for symptoms. Return to clinic with any new or worsening symptoms. [id number] Kristel Guillory MD [facility] ([facility]) [address] [place] [address] 05/04/2025 12:16:04 05/05/2025 09:34:58 Dysuria 62013304 R30.0 70286 Vertigo 184493945 R42 75744 [id number] Kristel Guillory MD [facility] ([facility]) [address] [place] [address] 05/04/2025 12:07:52 05/06/2025 04:03:49 Dysuria 12388218 R30.0 20031 [id number] Kristel Guillory MD [facility] ([facility]) [address] [place] [phone] 05/15/2025 12:32:00 05/16/2025 10:05:38 Viral upper respiratory tract infection 316190585 J06.9 821582 Productive cough 6934953 5 R05.8 872613 cxr i do not see acute findings. however recent onset production to cough with abnormal breath sounds will tx for CAP [id number] Kristel Guillory MD [facility] ([facility]) [address] [place] [address] 05/17/2025 09:46:29 05/18/2025 18:04:16 Pain of left knee joint 9598108050 23866 M25.562 595789 Fall in home 83840269 W1 9.XXXA Y92.009 [id number] Health Concerns Section Related Observation LastModified by Organization Detai ls LastModified Time None Recorded Concern Status LastModified by Organization Details LastModified Time None Recorded Payers Encounter Date Sequence Insurance Name Policy Number Policy Guillen Covered Member ID Guillen Member ID Guarantor Name 05/17/2025 1 [place] Jesus Avilez [id number] Jesus Avilez 05/17/2025 2 [employer] (MEDICARE SUPPLEMENT) Jesus Avilez [id number] Jesus Lovell [place] Notes Date Note Type Note Provider Name and Address Organization Details Recorded Time 05/17/2025 text/html Joint PainReport ed by PatientHPIFor location, patient reportsleft knee. For severity, patient reportsno change. For duration, patient reportspresent <1 month (3 days). For timing, patient reportssudden. For context, patient reportstrauma(claudia casillas fell when he tripped over a limb and his knee hit concrete). For associated symptoms, (edema, bruising, knee pain (worse if bearing weight)).ROS as noted in the HPI Kristel Guillory MD [address] [place] [address], [phone], [facility] 05/17/2025 10:11:29
--- OUTSIDE RECORDS SUMMARY | 2025-07-30 01:04 | XMS_ITS | Clinical Summary ---
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
--- OUTSIDE RECORDS SUMMARY | 2025-07-30 01:04 | XMS_ITS | Patient Health Record ---
Author Organization [facility] Address [address] [place] [address] Care Team Providers Care Student Education Specialist Name Role Phone Darell Jackson MD Primary Care Provider Alyssia Mohr [phone] Allergies No Known Allergies Results Component Value Reference Range Notes NM Lexiscan Cardiolite-[id number] Reviewed date:08/02/2024 04:12:49 PM Interpretation: Performing Lab: Notes/Report: See Below For Report NM Lexiscan Cardiolite Read See Below For Report NM Lexiscan Cardiolite-[id number] Reviewed date:08/02/2024 04:12:59 PM Interpretation: Performing Lab: Notes/Report: [id number] Electrocardiogram (EKG) - 93 000 Reviewed date:07/12/2025 04:15:41 PM Interpretation: Performing Lab: Notes/Report: Reason For Referral No Information Medications Medication SIG (Take, Route, Frequency, Duration) Notes Start Date End Date Status Fish Oil 300 MG Capsule 1 capsule Orally daily Active Dilantin 100 MG Capsule 1 capsule Orally twice a day Active Flaxseed Oil 1000 MG Capsule as directed Orally daily Act mannie Flecainide Acetate 150 MG Tablet as directed Orally twice a day Active Vitamin B Complex - Tablet as directed Orally daily Active Selenium 50 MCG Tablet 1 tablet Orally O nce a day Active Calcium & Magnesium Carbonates 975-232 MG Tablet as directed Orally daily Act mannie Vitamin D 50 MCG (2000 UT) Tablet 1 tablet Orally Once a day Active Aspirin 81 MG Capsule 1 tablet Orally On ce a day Active Vitamin C 100 MG Tablet 1 tablet Orally Once a day Active Metamucil 4 in 1 Fiber 55.6 % Powder as directed Orally 2 times a day Active Melatonin 3 MG Tablet 1 tablet at bedtim e as needed Orally Once a day Active PreserVision AREDS 2 - Capsule as directed Orally daily Act mannie Metoprolol Tartrate 25 MG Tablet 1 tablet with food Orally daily Active Social History Tobacco Use: Social History [...] Problem Status W/U Status Risk Notes Problem Information temporarily unavailable Wheezing (R06.2) Active confirmed Problem Information temporarily unavailable Unspecified atrial fibrillation (I48.91) Active confirmed Problem Information temporarily unavailable Constipation, unspecified constipation type (K59.00) Active confirmed Problem Information temporarily unavailable Atrial fibrillation (I48.91) Active confirmed Problem Information temporarily unavailable Palpitation (R00.2) Active confirmed Problem Information temporarily unavailable Chest pain (R07.9) Active confirmed Vital Signs Heart Rate 57 /min 07/12/2025 Blood pressure diastolic 78 mm Hg 07/12/2025 Oximetry 99 % 07/12/2025 Height-cm 167.64 cm 07/12/2025 Weight-kg 69.4 kg 07/12/2025 Height 66 in 07/12/2025 Blood pressure systolic 130 mm Hg 07/12/2025 Weight 153 lbs 07/12/2025 BMI 24.69 kg/m2 07/12/2025 Encounters Encounter Location Date Provider Diagnosis [facility] [address] [place] [address] 08/01/2024 Alyssia Hernandezi [facility] [address] [place] [address], [place] [address] 08/01/2024 Alyssia Phelpsshi Palpitation R00.[address] [place] [address] 08/19/2024 Alyssia Phelpsshi Chest pain R07.9 ; Palpitation R00.2 and Atrial fibrillation I48.[address] [place] [address] 07/12/2025 Alyssia Phelpsshi Palpitation R00.2 ; Atrial fibrillation I48.91 and Wheezing R06.[address] [place] [address] 08/01/2024 Everettevtjoseph Phelpsshi [address] [place] [address] 08/03/2024 Everettevtjoseph Phelpsshi [facility] [address] [place] [address] 08/05/2024 Alyssia Phelpsshi [facility] [address] [place] [address], [place] [address] 08/09/2024 Alyssia Hernandezi Assessments Encounter Date Diagnosis (ICD Code) Assessment Notes Treatment Notes Treatment Clinical Notes Section Notes 08/01/2024 Palpitation (ICD-10 - R00.2) 08/19/2024 Palpitation (ICD-10 - R00.2) As far as palpitation it is associated with A-fib. She had a watchman in place in [facility] in [facility]. Continue aspirin. However he continued to have episode of A-fib at least twice a month. At this point I advised the patient to [place] back to see electrophysiology in the spring. To discuss potential option for A-fib ablation. For now continue aspirin and the metoprolol. 08/19/2024 Chest pain (ICD-10 - R07.9) Denied any more chest pain. Stress test was negative for ischemia. 07/12/2025 Atrial fibrillation (ICD-10 - I48.91) S/p Watchman procedure and a [facility] back in October 2023. S/p A-fib ablation in November 30/2025 in [place] EKG in office today indication is palpitation history of A-fib status post watchman and ablation findings sinus bradycardia heart rate of 56 first-degree AV block 07/12/2025 Palpitation (ICD-10 - R00.2) The patient reports rare episode of palpitation. The patient report 3 episodes of palpitation since ablation at the [facility] in November 2024. He is also s/p Watchman procedure in [facility]. Continue aspirin therapy along with metoprolol. Continue to monitor rare episode of palpitation and follow-up in 6 months. EKG in office today indication is palpitation history of A-fib status post watchman and ablation findings sinus bradycardia heart rate of 56 first-degree AV block 07/12/2025 Wheezing (ICD-10 - R06.2) Today on examination patient was found to have a wheezing. Denied any chest pain chest pressure cough fevers. Advised the patient to have follow-up with primary doctor. Denied any history of COPD. EKG in office today indication is palpitation history of A-fib status post watchman and ablation findings sinus bradycardia heart rate of 56 first-degree AV block 08/19/2024 Atrial fibrillation (ICD-10 - I48.91) S/p Watchman procedure and a [facility] health back in October 2023. Continue aspirin and metoprolol. His time to go to see electrophysiology for potential A-fib ablation. 08/19/2024 Other Maddy Javed, am scribing for Alyssia Carter MD. Alyssia Javed MD, personally performed the services prescribed in this documentatio n, as scribed by Maddy Oliveira and it is both accurate and complete. 07/12/2025 Other Amadna Javed medical doctor md, am scribing for Alyssia Carter MD. Alyssia Javed MD, personally performed the services described in this documentatio n, as scribed by Amanda Cervantes in my presence, and it is both accurate and complete. EKG in office today indication is palpitation history of A-fib status post watchman and ablation findings sinus bradycardia heart rate of 56 first-degree AV block Plan Of Treatment Pending Test Test Name Order Date Electrocardiogram (EKG) - 87750 07/15/[address] Cardiac Scoring Diagnostic-[id number] 07/01 Next Appt Details Provider Name:Annel mcneil, 09/20/2025 11:00:00 AM, [address], [place], [address], Provider Name:Alyssia del rio, 01/10/2026 11:30:00 AM, [address], [place], [address], Insurance Providers Payer Name Payer Address Payer Phone Subscriber Number Group Number Insured Name Patient Relationship to Insured Coverage Start Date Coverage End Date [place] [address] [address] [place] [address] [id number] Jesus Avilez Self - patient is the insured [facility] Medicare Supplement [address] [place] [phone] [id number] Jesus Avilez Self - patient is the insured Medical (General) History Medical History History ICD Code Atrial Fibrillation Arthritis Epilepsy cataracts covid vacc Surgical History Surgery Date(Month/Year) left rotator cuff repair x3 2000 right hip replacement 2017 urolift procedure 2017 watchman 2023 [place] - Ablation 01/2025 Hospitalization History Reason Date(Month/Year) [place] [facility] - HR spike, constipated 1 08/2024 A-FIB SPIKE 07/2024
--- OUTSIDE RECORDS SUMMARY | 2025-07-30 01:04 | XMS_ITS | Continuity of Care Document ---
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 Plan of Treatment Reminders Order Date Submit Date Provider Last Modified By Organization Details Last Modified Time Details Appointments None recorded. Lab urinalysis , complete 2024 025 [facility], [address], [place], [address], 07:39:19 Referral None recorded. Procedures None recorded. Surgeries None recorded. Imaging None recorded. Medication Orders None recorded. Patient TargetsNo targets recorded. Patient InstructionsNo instructions recorded. Reason for Referral None Reported. Results Created Date Observation Date Name Description Value Unit Range Abnormal Flag Note LastModifiedBy Organization Detail LastModifiedTime 05/04/2005/04/2025 URINA LYSIS WITH MICRO color YELLOW Not Available [facility] [address], [place], [address], 05/04/2025 14:20:15 05/04/20 25 05/04/2025 URINA LYSIS WITH MICRO clarity CLEAR Not Available [facility] [address], [place], [address], 05/04/2025 14:20:15 05/04/20 25 05/04/2025 URINA LYSIS WITH MICRO glu NEGATI VE Not Available [facility] [address], [place], [address], 05/04/2025 14:20:15 05/04/20 25 05/04/2025 URINA LYSIS WITH MICRO bili NEGATI VE Not Available [facility] [address], [place], [address], 05/04/2025 14:20:15 05/04/20 25 05/04/2025 URINA LYSIS WITH MICRO ket NEGATI VE Not Available [facility] [address], [place], [address], 05/04/2025 14:20:15 05/04/20 25 05/04/2025 URINA LYSIS WITH MICRO S.g 1.010 1.005- 1.025 Not Available [facility] [address], [place], [address], 05/04/2025 14:20:15 05/04/20 25 05/04/2025 URINA LYSIS WITH MICRO pH 7.0 5.0-7. 0 Not Available [facility] [address], [place], [address], 05/04/2025 14:20:15 05/04/20 25 05/04/2025 URINA LYSIS WITH MICRO pro NEGATI VE Not Available [facility] [address], [place], [address], 05/04/2025 14:20:15 05/04/20 25 05/04/2025 URINA LYSIS WITH MICRO uro 0.2 Not Available [facility] [address], [place], [address], 05/04/2025 14:20:15 05/04/20 25 05/04/2025 URINA LYSIS WITH MICRO nit POSITI VE Not Available [facility] [address], [place], [address], 05/04/2025 14:20:15 05/04/20 25 05/04/2025 URINA LYSIS WITH MICRO blo NEGATI VE Not Available [facility] [address], [place], [address], 05/04/2025 14:20:15 05/04/20 25 05/04/2025 URINA LYSIS WITH MICRO abraham 1+ Not Available [facility] [address], [place], [address], 05/04/2025 14:20:15 05/04/20 25 05/04/2025 URINA LYSIS WITH MICRO WBC 80-100 Not Available [facility] [address], [place], [address], 05/04/2025 14:20:15 05/04/20 25 05/04/2025 URINA LYSIS WITH MICRO RBC 0 Not Available [facility] [address], [place], [address], 05/04/2025 14:20:15 05/04/20 25 05/04/2025 URINA LYSIS WITH MICRO epi cells 0 Not Available [facility] [address], [place], [address], 05/04/2025 14:20:15 05/04/20 25 05/04/2025 URINA LYSIS WITH MICRO bacteria 1+ AMORPH OUS Not Available [facility] [address], [place], [address], 05/04/2025 14:20:15 05/04/20 25 05/04/2025 URINA LYSIS WITH MICRO other NEGATI VE Not Available [facility] [address], [place], [address], 05/04/2025 14:20:15 04/28/20 25 04/28/2025 respi rator y patho gens DNA and RNA panel , PCR, nasop haryn x Covid negati ve Not Available [facility] ([facility]) [address] [place], [address], 04/28/2025 13:23:21 04/28/20 25 04/28/2025 respi rator y patho gens DNA and RNA panel , PCR, nasop haryn x Rhinovirus positi ve Not Available [facility] ([facility]) [address] [place], [address], 04/28/2025 13:23:21 04/28/20 25 04/28/2025 respi rator y patho gens DNA and RNA panel , PCR, nasop haryn x Influenza A negati ve Not Available [facility] ([facility]) [address] [place], [address], 04/28/2025 13:23:21 04/28/20 25 04/28/2025 respi rator y patho gens DNA and RNA panel , PCR, nasop haryn x Influenza B negati ve Not Available [facility] ([facility]) [address] [place] [address], [address], 04/28/2025 13:23:21 04/28/20 25 04/28/2025 respi rator y patho gens DNA and RNA panel , PCR, nasop haryn x RSV negati ve Not Available [facility] ([facility]) [address] [place], [address], 04/28/2025 13:23:21 05/04/20 25 05/06/2025 CULTU RE, URINE , ROUTI NE culture, urine, routine SEE NOTE abnormal CULTU RE, URINE , ROUTI NE Micro Numbe r: [id number] Test Statu s: Final Speci men [...] lity) will be perfo rmed. Not Available [facility] [address] [place], [address], 05/06/2025 04:48:52 05/15/2005/15/2025 XR, chest , 2 view No observ ation record ed. [facility] ([facility]) [address] [place], [address], 05/15/2025 15:43:12 05/15/2005/15/2025 XR, chest , 2 view No observ ation record ed. [facility] ([facility]) [address] [place], [address], 05/15/2025 16:02:23 05/17/2005/17/2025 XR, knee, 3 view No observ ation record ed. [facility] [address] [place], [address], 05/17/2025 16:42:58 05/24/2005/24/2025 elect rocar diogr am No observ ation record ed. [facility] ([facility]) [address] [place], [address], 05/29/2025 09:00:21 05/24/2005/24/2025 elect rocar diogr am No observ ation record ed. [facility] ([facility]) [address] [place], [address], 05/25/2025 12:57:20 Result Notes None recorded. 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 Procedures Surgical History Date Name Laterality Status Provider Name and Address Organization Details Recorded Time 08/01/20 24 cardiovascular stress testing completed [facility] 08/05/2024 11:09:31 07/01/20 18 total replacement of hip completed [facility] 05/21/2023 10:59:02 left atrial appendage closure completed Kristel Guillory MD [address] [place] [address], [phone] [place] [address], L.L.CAnnabella 06/09/2024 09:43:25 cardiac ablation for atrial fibrillation completed [facility] 12/14/2024 12:07:15 arthroscopy of shoulder completed [facility] 05/21/2023 10:59:28 tonsillectomy completed [facility] 05/21/2023 10:59:37 arthroscopy of knee completed [facility] 05/21/2023 10:59:54 Imaging Results None recorded. Procedure Notes None recorded. Medical Equipment None Reported. Allergies Allergen ID Allergen Name Allergen Category Reaction Reaction Severity Criticality Documentation Date Start Date Code Code System Note Provider Name and Address Organization Details Recorded Time 39405 levetirac etam medicatio n Not available Not available Not available 07/14/20252024 91577 7 RxNorm [facility]04 Medications Name Sig Start Date Stop [...] Recorded 03/07/20 10:00AM by Senait Fine (Authori tanner through [...] Last Updated DateTime 170.18 cm 24 kg/m2 39017.6 3 g 96.9 [degF] 52 /min 96 % 118/60 mm[Hg] Sarah Robb [facility] 12:27:53 Social History Question Answer Notes LastModified by [facility] Details LastModified Time Tobacco Smoking Status Never Smoker CECILE reilly [facility] 12/09/2022 11:09:09 What Was The Date Of Your Most Recent Tobacco Screening? 04/28/2025 [email or web address] Information not available 04/28/2025 Have You Ever Been Counseled For Unhealthy Alcohol Use? No [email or web address] Information not available 12/09/2022 Sex: Unknown Functional Status Question Answer Note LastModified by [facility] Details LastModified Time Do you use any illicit or recreational drugs? No Information not available 02/11/2024 Do you or have you ever used any other forms of tobacco or nicotine? No [email or web address] Information not available 05/21/2023 What is your level of alcohol consumption? None Information not available 02/11/2024 Do you or have you ever used any nicotine-free cigarettes, vape, or chewing tobacco? No [email or web address] Information not available 03/16/2024 Mental Status None recorded. Family History Relationship Description Onset Age of this Age Resolved Age Notes LastModified by Organization Details LastModified Time Father Malignant neoplasm of oral cavity Not available 10:47:20 Father Alcoholism [email or web address] Not avail able 05/21/2023 10:47:26 Sister Asthma [email or web address] Not available 05/21/2023 10:47:32 Medical History No medical history recorded. Immunizations Vaccine Type Date Status Note Provider Nam e and Address Organization Details Recorded Time COVID-19, mRNA, LNP-S, PF, 30 mcg/0.3 mL dose 09/28/2020 completed CECILE reilly [facility] 05/21/2023 10:44:40 COVID-19, mRNA, LNP-S, PF, 30 mcg/0.3 mL dose 10/26/2020 completed CECILE reilly, [facility] 05/21/2023 10:44:40 COVID-19, mRNA, LNP-S, PF, 30 mcg/0.3 mL dose 06/04/2021 completed Not Available [facility] 11:15:10 COVID-19, mRNA, LNP-S, PF, 30 mcg/0.3 mL dose 05/28/2021 completed CECILE reilly [facility] 05/21/2023 10:44:40 COVID-19, mRNA, LNP-S, PF, 30 mcg/0.3 mL dose, bhavana-sucrose 12/24/2021 completed CECILE reilly [facility] 05/21/2023 10:44:40 COVID-19, mRNA, LNP-S, bivalent, PF, 30 mcg/0.3 mL dose 05/20/2022 completed CECILE reilly [facility] 05/21/2023 10:44:40 Past Encounters Encounter ID Performer Location Encounter Start Date Encounter Closed Date Diagnosis/Indication Diagnosis SNOMED-CT Code Diagnosis ICD10 Code Diagnosis IMO Codes Diagnosis Note [id number] RENETTA MEDINA [facility] ([facility]) [address] [place] [address] 04/28/2025 13:10:11 04/28/2025 14:26:33 Acute cough 1303675443 43475515 R05.8 5670716634 Disease ca used by Rhinovirus 19641221 B34.8 856955 Increase po fluids. Rest. May use otc meds as needed for symptoms. Return to clinic with any new or worsening symptoms. [id number] Kristel Guillory MD [facility] ([facility]) [address] [place] [phone] 05/04/2025 12:16:04 05/05/2025 09:34:58 Dysuria 16180205 R30.0 02593 Vertigo 875198151 R42 66379 [id number] Kristel Guillory MD [facility] ([facility]) [address] [place] [phone] 05/04/2025 12:07:52 05/06/2025 04:03:49 Dysuria 34916001 R30.0 98015 Health Concerns Section Related Observation LastModified by Organization Detai ls LastModified Time None Recorded Concern Status LastModified by Organization Details LastModified Time None Recorded Payers Encounter Date Sequence Insurance Name Policy Number Policy Guillen Covered Member ID Guillen Member ID Guarantor Name 05/04/2025 1 [place] Jesus Lovell [place] [id number] Jesus Lovell [place] 05/04/2025 2 [employer] (MEDICARE SUPPLEMENT) Jesus Lovell [place] [id number] Jesus Lovell Fatmata Notes Date Note Type [...] cough this is better. Kristel Guillory MD [address] [place] [address], [phone], [facility], Evin 05/04/2025 12:52:29
--- OUTSIDE RECORDS SUMMARY | 2025-07-30 01:04 | XMS_ITS | Continuity of Care Document ---
Author Organization [facility] Evin Ren, [facility] ([facility]) Address [address] [place] [address] Care Team Providers Care Congressional Aide Name Role Phone DARELL GUILLORY Primary Care Provider Unavailabl e Assessment Encounter Date Assessment Date Assessment LastModified by Organization Details LastModified Time 07/14/2025 07/14/2025 continue fiber daily [email or web address] Not available 07/14/2025 13:39:18 Plan of Treatment Reminders Order Date Submit [...] Details Recorded Time Benign prostatic hyperplasi a 340255704 Active 2022 BPH with urinary obstruct ion; 10/31/19 23 9:58AM by Sarah Taylor RN, Office Visit; Promoted ; acuity set as *; [facility] 12:02:34 Nocturnal epilepsy 581991911 Active 2022 [facility] 3 10:46:31 Atrial fibrillati on with rapid ventricula r response 917614921321 109 Active 2022 [facility] 4 10:49:47 Problem Notes None recorded. Procedures Surgical History Date Name Laterality Status Provider Name and Address Organization Details Recorded Time 08/01/20 24 cardiovascular stress testing completed [facility] 08/05/2024 11:09:31 07/01/20 18 total replacement of hip completed [facility] 05/21/2023 10:59:02 left atrial appendage closure completed Darell Guillory MD [address] [place] [address], [phone] 06/09/2024 09:43:25 cardiac ablation for atrial fibrillation completed [facility] 12/14/2024 12:07:15 arthroscopy of shoulder completed [facility] 05/21/2023 10:59:28 tonsillectomy completed [facility] 05/21/2023 10:59:37 arthroscopy of knee completed [facility] 05/21/2023 10:59:54 Imaging Results None recorded. Procedure Notes None recorded. Medical Equipment None Reported. Allergies Allergen ID Allergen Name Allergen Category Reaction Reaction Severity Criticality Documentation Date Start Date Code Code System Note Provider Name and Address Organization Details Recorded Time 51956 levetirac etam medicatio n Not available Not available Not available 07/14/20252024 43281 7 RxNorm Sarah reilly [facility] 12:10:04 Medications Name Sig Start Date Stop [...] 10:00AM by Senait Fine (Authori tanner through Darell Guillory MD), Refill Request; Refill [...] Details Last Updated DateTime 5 170.18 cm 23.8 kg/m2 12998.0 4 g 97.8 [degF] 63 /min 96 % 110/62 mm[Hg] CECILE DAY [facility] 13:08:14 Social History Question Answer Notes LastModified by Zaiseoul Details LastModified Time Tobacco Smoking Status Never Smoker CECILE reilly [facility] 12/09/2022 11:09:09 What Was The Date Of Your Most Recent Tobacco Screening? 04/28/2025 [email or web address] Information not available 04/28/2025 Have You Ever Been Counseled For Unhealthy Alcohol Use? No [email or web address] Information not available 12/09/2022 Sex: Unknown Functional Status Question Answer Note LastModified by Zaiseoul Details LastModified Time Do you use any illicit or recreational drugs? No Information not available 02/11/2024 Do you or have you ever used any other forms of tobacco or nicotine? No [email or web address] Information not available 05/21/2023 What is your level of alcohol consumption? None Information not available 02/11/2024 Do you or have you ever used any nicotine-free cigarettes, vape, or chewing tobacco? No [email or web address] Information not available 03/16/2024 Mental Status None recorded. Family History Relationship Description Onset Age of this Age Resolved Age Notes LastModified by Organization Details LastModified Time Father Malignant neoplasm of oral cavity [email or web address] Not available 10:47:20 Father Alcoholism [email or web address] Not avail able 05/21/2023 10:47:26 Sister Asthma [email or web address] Not available 05/21/2023 10:47:32 Medical History No medical history recorded. Immunizations Vaccine Type Date Status Note Provider Nam e and Address Organization Details Recorded Time COVID-19, mRNA, LNP-S, PF, 30 mcg/0.3 mL dose 09/28/2020 completed CECILE reilly [facility] 05/21/2023 10:44:40 COVID-19, mRNA, LNP-S, PF, 30 mcg/0.3 mL dose 10/26/2020 completed CECILE reilly, [facility] 05/21/2023 10:44:40 COVID-19, mRNA, LNP-S, PF, 30 mcg/0.3 mL dose 06/04/2021 [facility] COVID-19, mRNA, LNP-S, PF, 30 mcg/0.3 mL dose 05/28/2021 completed CECILE reilly [facility] 05/21/2023 10:44:40 COVID-19, mRNA, LNP-S, PF, 30 mcg/0.3 mL dose, bhavana-sucrose 12/24/2021 completed CECILE reilly [facility] 05/21/2023 10:44:40 COVID-19, mRNA, LNP-S, bivalent, PF, 30 mcg/0.3 mL dose 05/20/2022 completed CECILE reilly, [facility] 05/21/2023 10:44:40 Past Encounters Encounter ID Performer Location Encounter Start Date Encounter Closed Date Diagnosis/Indication Diagnosis SNOMED-CT Code Diagnosis ICD10 Code Diagnosis IMO Codes Diagnosis Note [id number] Darell Guillory MD [facility] ([facility]) [address] [place] [address] 07/14/2025 12:59:34 07/14/2025 13:53:14 Acute constipation 842951127 K59.00 134571 Taking Metamucilh e took just 30 ml of mom. repeat mom today up to 2 doses. f/u if not improved. Health Concerns Section Related Observation LastModified by Organization Detai ls LastModified Time None Recorded Concern Status LastModified by Organization Details LastModified Time None Recorded Payers Encounter Date Sequence Insurance Name Policy Number Policy Guillen Covered Member ID Guillen Member ID Guarantor Name 07/14/2025 1 [place] Jesus Lawsonlett [id number] Jesus Lovell Fatmata 07/14/2025 2 [employer] (MEDICARE SUPPLEMENT) Jesus Lovell Fatmata [id number] Jesus Lovell [place] Notes Date Note Type Note Provider Name and Address Organization Details Recorded Time 5 text/html ConstipationReported by PatientHPIFor quality, patient reportsstraining. For duration, patient reportspresent <1 month. For alleviating factors, patient reportshaving bowel movement(mom). For associated symptoms, patient reportsno abdominal pain,no excess gas,no nausea,no vomiting,no blood in stool, andno black or tarry stools.he had a bm this a.m. he used MOM the last 2-3 days. prior to this 3 days he had been going every 3 days having formed soft non lumpy bmsROS as noted in the HPI Darell Guillory MD [address] [place] [address], [phone], [facility] [place] [facility] 07/14/2025 13:43:23
--- OUTSIDE RECORDS SUMMARY | 2025-07-30 01:05 | XMS_ITS | Data Portability ---
Author Organization [facility] Jordan Patton [facility], [facility] Address [address] [facility] [address] [place] [address] Care Team Providers Care Buttermaker Helper Name Role Phone JACKSONKRISTEL Primary Care Provider Unavailabl e Assessment Encounter Date Assessment Date Assessment LastModified by Organization Details LastModified Time 05/17/2025 05/17/2025 rice therapy f/u if worsening or not improving weekly. lower respiratory infeciton is significantly improved [email or web address] Not available 05/17/2025 10:11:18 07/14/2025 07/14/2025 continue fiber daily [email or web address] Not available 07/14/2025 13:39:18 07/25/2025 07/25/2025 if sx's recur will need to contact cardiology for repeat stress testing but this is very atypical chest pain in a pt with a nromal stress test within the year. [email or web address] Not available 07/25/2025 12:39:34 Plan of Treatment Reminders Order Date Submit Date Provider Last Modified By Organization Details Last Modified Time Details Appointments None recorded. Lab None recorded. Referral None recorded. Procedures None recorded. Surgeries None recorded. Imaging electrocard iogram 2024 025 [email or web address] [facility] ([facility]), [address] [place] [address], [phone], 16:21:23 XR, knee, 3 view 2024 025 [email or web address] [facility] ([facility]), [address] [place] [address], [phone], 18:04:16 Medication Orders None recorded. Patient TargetsNo targets recorded. Patient InstructionsNo instructions recorded. Reason for Referral None Reported. Results Created Date Observation Date Name Description Value Unit Range Abnormal Flag Note LastModifiedBy Organization Detail LastModifiedTime 05/04/2005/04/2025 URINA LYSIS WITH MICRO color YELLOW Not Available [facility] [address], [place], [address], 05/04/2025 14:20:15 05/04/2005/04/2025 URINA LYSIS WITH MICRO clarity CLEAR Not Available [facility] [address], [place], [address], 05/04/2025 14:20:15 05/04/2005/04/2025 URINA LYSIS WITH MICRO glu NEGATI VE Not Available [facility] [address], [place], [address], 05/04/2025 14:20:15 05/04/20 25 05/04/2025 URINA LYSIS WITH MICRO bili NEGATI VE Not Available [facility] [address], [place], [address], 05/04/2025 14:20:15 05/04/20 25 05/04/2025 URINA LYSIS WITH MICRO ket NEGATI VE Not Available [facility] [address] [facility] [address], [place], [address], 05/04/2025 14:20:15 05/04/20 25 05/04/2025 URINA LYSIS WITH MICRO S.g 1.010 1.005- 1.025 Not Available [facility] [address], [place], [address], 05/04/2025 14:20:15 05/04/20 25 05/04/2025 URINA LYSIS WITH MICRO pH 7.0 5.0-7. 0 Not Available [facility] [address], [place], [address], 05/04/2025 14:20:15 05/04/20 25 05/04/2025 URINA LYSIS WITH MICRO pro NEGATI VE Not Available [facility] [address], [place], [address], 05/04/2025 14:20:15 05/04/20 25 05/04/2025 URINA LYSIS WITH MICRO uro 0.2 Not Available [facility] [address], [place], [address], 05/04/2025 14:20:15 05/04/20 25 05/04/2025 URINA LYSIS WITH MICRO nit POSITI VE Not Available [facility] [address], [place], [address], 05/04/2025 14:20:15 05/04/20 25 05/04/2025 URINA LYSIS WITH MICRO blo NEGATI VE Not Available [facility] [address], [place], [address], 05/04/2025 14:20:15 05/04/20 25 05/04/2025 URINA LYSIS WITH MICRO abraham 1+ Not Available [facility] [address], [place], [address], 05/04/2025 14:20:15 05/04/20 25 05/04/2025 URINA LYSIS WITH MICRO WBC 80-100 Not Available [facility] [address], [place], [address], 05/04/2025 14:20:15 05/04/20 25 05/04/2025 URINA LYSIS WITH MICRO RBC 0 Not Available [facility] [address], [place], [address], 05/04/2025 14:20:15 05/04/20 25 05/04/2025 URINA LYSIS WITH MICRO epi cells 0 Not Available [facility] [address] [facility] [address], [place], [address], 05/04/2025 14:20:15 05/04/20 25 05/04/2025 URINA LYSIS WITH MICRO bacteria 1+ AMORPH OUS Not Available [facility] [address] [facility] [address], [place], [address], 05/04/2025 14:20:15 05/04/20 25 05/04/2025 URINA LYSIS WITH MICRO other NEGATI VE Not Available [facility] [address] [facility] [address], [place], [address], 05/04/2025 14:20:15 04/28/20 25 04/28/2025 respi rator y patho gens DNA and RNA panel , PCR, nasop haryn x Covid negati ve Not Available [facility] ([facility]) [address] [place] [address], [address], 04/28/2025 13:23:21 04/28/20 25 04/28/2025 respi rator y patho gens DNA and RNA panel , PCR, nasop haryn x Rhinovirus positi ve Not Available [facility] ([facility]) [address] [place] [address], [phone], 04/28/2025 13:23:21 04/28/20 25 04/28/2025 respi rator y patho gens DNA and RNA panel , PCR, nasop haryn x Influenza A negati ve Not Available [facility] ([facility]) [address] [place] [address], [phone], 04/28/2025 13:23:21 04/28/20 25 04/28/2025 respi rator y patho gens DNA and RNA panel , PCR, nasop haryn x Influenza B negati ve Not Available [facility] ([facility]) [address] [place], [address], 04/28/2025 13:23:21 04/28/20 25 04/28/2025 respi rator y patho gens DNA and RNA panel , PCR, nasop haryn x RSV negati ve Not Available [facility] ([facility]) [address] [place], [address], 04/28/2025 13:23:21 05/04/20 25 05/06/2025 CULTU RE, URINE , ROUTI NE culture, urine, routine SEE NOTE abnormal CULTU RE, URINE , ROUTI NE Micro Numbe r: [id number] Test Statu s: Final Speci men [...] lity) will be perfo rmed. Not Available [facility] [address] , [place], [address], 05/06/2025 04:48:52 05/15/2005/15/2025 respi rator y patho gens DNA and RNA panel , PCR, nasop haryn x Covid negati ve Not Available [facility] ([facility]) [address] [place], [address], 05/15/2025 12:52:26 05/15/20 25 05/15/2025 respi rator y patho gens DNA and RNA panel , PCR, nasop haryn x Rhinovirus negati ve Not Available [facility] ([facility]) [address] [place], [address], 05/15/2025 12:52:26 05/15/20 25 05/15/2025 respi rator y patho gens DNA and RNA panel , PCR, nasop haryn x Influenza A negati ve Not Available [facility] ([facility]) [address] [place], [address], 05/15/2025 12:52:26 05/15/20 25 05/15/2025 respi rator y patho gens DNA and RNA panel , PCR, nasop haryn x Influenza B negati ve Not Available [facility] ([facility]) [address] [place], [address], 05/15/2025 12:52:26 05/15/20 25 05/15/2025 respi rator y patho gens DNA and RNA panel , PCR, nasop haryn x RSV negati ve Not Available [facility] ([facility]) [address] [place], [address], 05/15/2025 12:52:26 05/15/20 25 05/15/2025 XR, chest , 2 view No observ ation record ed. [facility] ([facility]) [address] [place], [address], 05/15/2025 15:43:12 05/15/20 25 05/15/2025 XR, chest , 2 view No observ ation record ed. [facility] ([facility]) [address] [place], [address], 05/15/2025 16:02:23 05/17/20 25 05/17/2025 XR, knee, 3 view No observ ation record ed. [facility] [address] [place], [address], 05/17/2025 16:42:58 05/24/20 25 05/24/2025 elect rocar diogr am No observ ation record ed. [facility] ([facility]) [address] [place], [address], 05/29/2025 09:00:21 05/24/20 25 05/24/2025 elect rocar diogr am No observ ation record ed. [facility] ([facility]) [address] [place], [address], 05/25/2025 12:57:20 Result Notes None recorded. 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 4 10:49:47 Problem Notes None recorded. Procedures Surgical History Date Name Laterality Status Provider Name and Address Organization Details Recorded Time 08/01/20 24 cardiovascular stress testing completed CECILE DAY [facility] 08/05/2024 11:09:31 07/01/20 18 total replacement of hip completed CECILE DAY [facility] 05/21/2023 10:59:02 left atrial appendage closure completed Kristel Jackson MD [address] [place], [address], [facility], L[facility]abella 06/09/2024 09:43:25 cardiac ablation for atrial fibrillation completed [facility], [place] 12/14/2024 12:07:15 arthroscopy of shoulder completed [facility], [place] 05/21/2023 10:59:28 tonsillectomy completed [facility], [place] 05/21/2023 10:59:37 arthroscopy of knee completed [facility], [place] 05/21/2023 10:59:54 Imaging Results None recorded. Procedure Notes None recorded. Medical Equipment None Reported. Allergies Allergen ID Allergen Name Allergen Category Reaction Reaction Severity Criticality Documentation Date Start Date Code Code System Note Provider Name and Address Organization Details Recorded Time 29035 levetirac etam medicatio n Not available Not available Not available 07/14/20252024 84641 7 RxNorm Sarah Robb [facility], [place] 12:10:04 Medications Name Sig Start Date [...] MOUTH EVERY 5 HOURS NEEDED FOR PAIN 11/14 /2025 completed Not Available Not Available Not Available [...] by Senait Fine (Authori tanner through Kristel Jackson MD), Refill Request; [...] Updated DateTime 5 170.18 cm 24 kg/m2 05037.6 3 g 97.4 [degF] 67 /min 96 % 110/60 mm[Hg] CECILE DOLAN [facility] 5 09:51:18 Date Recorded Body height Body mass index (BMI) Body weight Body temperature Heart rate Oxygen saturation Systolic And Diastolic Provider Name and Address Organization Details Last Updated DateTime 5 170.18 cm 24 kg/m2 96655.6 3 g 97.4 [degF] 62 /min 96 % 112/58 mm[Hg] CECILE DAY [facility] 5 13:00:49 Date Recorded Body height Body mass index (BMI) Body weight Body temperature Heart rate Oxygen saturation Systolic And Diastolic Provider Name and Address Organization Details Last Updated DateTime 5 170.18 cm 23.8 kg/m2 20285.0 4 g 97.8 [degF] 63 /min 96 % 110/62 mm[Hg] CECILE DAY [facility] 5 13:08:14 Date Recorded Body height Body mass index (BMI) Body weight Body temperature Heart rate Oxygen saturation Systolic And Diastolic Provider Name and Address Organization Details Last Updated DateTime 5 170.18 cm 24 kg/m2 71982.6 3 g 97.4 [degF] 53 /min 97 % 120/68 mm[Hg] Sarah Robb [facility] 5 12:11:29 Social History Question Answer Notes LastModified by [employer] ion Details LastModified Time Tobacco Smoking Status Never Smoker CECILE DAY [facility] 12/09/2022 11:09:09 What Was The Date Of Your Most Recent Tobacco Screening? 04/28/2025 outs Information not available 04/28/2025 Have You Ever [...] nicotine-free cigarettes, vape, or chewing tobacco? No [email or web address] Information not available 03/16/2024 Mental Status None recorded. Family History Relationship Description Onset Age of this Age Resolved Age Notes LastModified by Organization Details LastModified Time Father Malignant neoplasm of oral cavity samantha Not available 10:47:20 Father Alcoholism samantha Not avail able 05/21/2023 10:47:26 Sister Asthma samantha Not available 05/21/2023 10:47:32 Medical History No medical history recorded. Immunizations Vaccine Type Date Status Note Provider Nam e and Address Organization Details Recorded Time COVID-19, mRNA, LNP-S, PF, 30 mcg/0.3 mL dose 09/28/2020 completed CECILE reilly [facility] 05/21/2023 10:44:40 COVID-19, mRNA, LNP-S, PF, 30 mcg/0.3 mL dose 10/26/2020 completed CECILE reilly [facility] 05/21/2023 10:44:40 COVID-19, mRNA, LNP-S, PF, 30 mcg/0.3 mL dose 06/04/2021 completed Not Available [facility] 11:15:10 COVID-19, mRNA, LNP-S, PF, 30 mcg/0.3 mL dose 05/28/2021 completed CECILE reilly [facility] 05/21/2023 10:44:40 COVID-19, mRNA, LNP-S, PF, 30 mcg/0.3 mL dose, bhavana-sucrose 12/24/2021 completed CECILE reilly [facility] 05/21/2023 10:44:40 COVID-19, mRNA, LNP-S, bivalent, PF, 30 mcg/0.3 mL dose 05/20/2022 completed CECILE reilly [facility] 05/21/2023 10:44:40 Past Encounters Encounter ID Performer Location Encounter Start Date Encounter Closed Date Diagnosis/Indication Diagnosis SNOMED-CT Code Diagnosis ICD10 Code Diagnosis IMO Codes Diagnosis Note [id number] Kristel Jackson MD [facility] ([facility]) [address] [place] [address] 12/09/2022 10:52:34 12/15/2022 15:23:49 Abdominal pain 83790582 R10.9 Pain in scrotum N50.82 germán has had multiple urology evaluaiton [...] diagnosis. [facility]was [facility] which told him they could not help and he shoud see [facility] . unfortunat preeti he has not [...] to collect all of this as well. [id number] Kristel Jackson MD [facility] ([facility]) [address] [place] [id number] 02/19/2023 13:39:35 02/19/2023 14:48:23 Constipation 15989598 K59.00 Taking Metamucil [id number] JOSE VENCES NP [facility] ([facility]) [address] [place] [address] 04/02/2023 11:53:44 04/02/2023 14:58:29 Viral screening 850664408 Z11.52 Negative test in clinic todayDiscu ssed if any symptoms start to return for test or perform a home test 24-48 hours after symptoms onsetIncre ase PO Fabiolau rn to clinic if any changes, any worsening, any concernsPa tient verbalized understand ing of plan [id number] Kritsel Jackson MD [facility] ([facility]) [address] [place] [id number] 05/21/2023 10:36:31 05/21/2023 11:43:42 Nausea 640595317 R11.0 d/c doxycyclin ef/u if recurrence of any change in urinary sx stream etc. [id number] Kristel Jackson MD [facility] ([facility]) [address] [place] [id number] 06/02/2023 12:35:28 06/02/2023 16:41:29 Tachycardia 8452506 R00.0 Abdominal pain 43580990 R10.9 Atrial fib rillation with rapid ventricular response 3343830579 76695 I48.91 was tachycardi c at 160 on [...] and they are anticipati ng his arrival [id number] Kristel Jackson MD [facility] ([facility]) [address] [place] [id number] 06/05/2023 11:12:34 06/05/2023 12:44:37 Atrial fibrillation 63911392 I48.91 I spent greater than 35 mins in counseling and answering questions on atrial fibrillati oin. all questions were answered to the patient's satisfacti on. the patient was given the opportunit y to ask additional questions and acknowledg ed he had no additional questions at this time and will call if any questions arise. [id number] rKistel Jackson MD [facility] ([facility]) [address] [place] [id number] 06/15/2023 11:36:39 06/15/2023 11:43:06 [id number] Kristel Jackson MD [facility] ([facility]) [address] [place] [id number] 07/06/2023 12:20:10 07/06/2023 14:38:11 Atrial fibrillation 43723535 I48.[address] is conferring with their neurology colleagues and will have a plan of care regarding the medicaton. he is aware dilantin will need to be tapered. 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 [id number] Kristel Jackson MD [facility] ([facility]) [address] [place] [id number] 08/06/2023 12:41:52 08/06/2023 14:15:41 Atrial fibrillation 35545824 I48.91 he is here to update me regarding his cardiology [employer] visit. unfortunat preeti, he does not have an update on rhythm control etc. he says that they didn't talk about that. [id number] FABIAN WOOD [facility] ([facility]) [address] [place] [id number] 08/19/2023 17:14:11 09/05/2023 16:46:55 [id number] Ghulam Gee MD [facility] ([facility]) [address] [place] [id number] 08/20/2023 09:31:51 08/26/2023 13:37:28 Upper respiratory infection 13113455 J06.9 [id number] Kristel Jackson MD [facility] ([facility]) [address] [place] [id number] 09/08/2023 11:53:25 09/08/2023 14:33:40 Nocturnal epilepsy 240804836 G40.802 Atrial fibrillation 4943 6004 I48.91 he is here to update me regarding his cardiology [employer] visit. unfortunat preeti, he does not have an update on rhythm control etc. he says that they didn't talk about that. [id number] Kristel Jackson MD [facility] ([facility]) [address] [place] [id number] 5 10/12/2023 11:09:46 10/12/2023 12:18:27 Nocturnal epilepsy 914366905 G40.517 [id number] Kristel Jackson MD [facility] ([facility]) [address] [place] [id number] 5 10/20/2023 11:14:51 10/20/2023 12:57:40 Atrial fibrillation 86634212 I48.91 we discussed ins and outs risks and benefits of watchman [id number] Kristel Jackson MD [facility] ([facility]) [address] [place] [id number] 11/02/2023 13:10:37 11/02/2023 14:13:05 Suprapubic pain 183600997 R10.30 he last needed to catheteriz e the night before last. [id number] Kristel Jackson MD [facility] ([facility]) [address] [place] [id number] 01/05/2024 12:08:52 01/06/2024 12:53:44 Bursitis of bursa of ankle and/or foot 453157898 M76.899 on walking he over inverts due to his hip issues.i will refer to consider structural suport for the foot/ankle to prevent over rotation of the ankle on ambulating and toconsider injection if he is not improving. compressiv e sleeveice and rest the ankle [id number] Kristel Jackson MD [facility] ([facility]) [address] [place] [id number] 5 02/11/2024 13:16:43 02/11/2024 14:22:17 Xerostomia 96826815 K11.7 we discussed supportive tx, avoidance of acidic beverages and inquire about whether he mouth breathes with his .he has a good bit of saliva on exam today [id number] Kristel Jackson MD [facility] ([facility]) [address] [place] [id number] 5 03/16/2024 10:32:45 03/16/2024 12:29:16 Atrial fibrillation 00490223 I48.91 we discussed ins and outs risks and benefits of watchman Bursitis o f bursa of ankle and/or foot 166847422 M76.899 on walking he over inverts due to his hip issues.i will refer to consider structural support for the foot/ankle to prevent over rotation of the ankle on ambulating and to consider injection if he is not improving. compressiv e sleeveice and rest the ankle [id number] Kristel Jackson MD [facility] ([facility]) [address] [place] [id number] 5 03/28/2024 12:14:25 03/28/2024 13:29:05 Atrial fibrillation with rapid ventricular response 2559739255 78387 I48.91 f/u as neededcont inue to consult with your cardiologi st and discuss rhythm control in two weeks. [id number] Kristel Jackson MD [facility] ([facility]) [address] [place] [id number] 5 05/09/2024 13:37:20 05/09/2024 15:00:33 Lower urinary tract symptoms 750593472 R39.9 [id number] Kristel Jackson MD [facility] ([facility]) [address] [place] [id number] 5 06/09/2024 09:12:45 06/09/2024 10:44:06 Atrial fibrillation 52680414 I48.91 we discussed ins and outs risks and benefits of watchman we discussed maneuvers to lower heart rate once again. he is back to normal.it has been some time since his last spell. Atrial fib rillation with rapid ventricular response 5152412902 00177 I48.91 f/u as neededcont inue to consult with your cardiologi st and discuss rhythm control in two weeks. Hoarse 90444862 R49.0 [id number] Kristel Jackson MD [facility] ([facility]) [address] [place] [id number] 5 06/28/2024 09:54:21 06/28/2024 10:49:36 Atrial fibrillation with rapid ventricular response 7008390064 76067 I48.91 f/u with cardiology for rhythm control in two weeks as planned. his two er visits from this past week are included [id number] Kristel Jackson MD [facility] ([facility]) [address] [place] [id number] 5 07/25/2024 13:53:05 07/26/2024 22:18:34 Excessive daytime sleepiness - normal night sleep 802595335 G47.19 Atrial fib rillation with rapid ventricular response 5332285894 47706 I48.91 f/u with cardiology for rhythm control in two weeks as planned. his two er visits from this past week are included [id number] Kristel Jackson MD [facility] ([facility]) [address] [place] [id number] 5 08/11/2024 11:41:41 08/11/2024 14:15:44 Atrial fibrillation with rapid ventricular response 3708907388 97587 I48.91 f/u with cardiology for rhythm control [...] see his cardiologi st in 4 weeks. [id number] RENETTA VALENCIA [facility] ([facility]) [address] [place] [id number] 5 09/05/2024 14:51:20 09/07/2024 12:07:34 Acute bacterial bronchitis 165335068 J20.9 Discussed use of otc medication s for symptom management .Push oral fluids and rest.If you develop fever, sob, or start feeling worse then return for re-evaluat ion. [id number] Kristel Jacskon MD [facility] ([facility]) [address] [place] [id number] 5 09/08/2024 12:19:13 09/08/2024 13:24:25 Acute bronchitis 31270972 J20.9 f/u if any fever productive cough dyspnea or any other concern. [id number] RENETTA VALENCIA [facility] ([facility]) [address] [place] [address] 5 09/14/2024 09:03:40 09/17/2024 10:09:12 Acute bacterial bronchitis 065014805 J20.9 Discussed use of otc medication s for symptom management .Push oral fluids and rest.If you develop fever, sob, or start feeling worse then return for re-evaluat ion. [id number] Kristel Jackson MD [facility] ([facility]) [address] [place] [address] [phone] 5 09/15/2024 10:12:31 09/15/2024 13:24:33 Atrial fibrillation with rapid ventricular response [id number] 29767 I48.91 previous planf/u with cardiology for rhythm [...] cardiologi st in 4 weeks. Acute bronchitis 1005661 2 J20.9 f/u if any fever productive cough dyspnea or any other concern. Acute uppe r respiratory infection 01106531 J06.9 [id number] Kristel Jackson MD [facility] ([facility]) [address] [place] [address] [phone] 5 09/27/2024 10:49:48 09/28/2024 10:44:16 Acute upper respiratory infection [id number] J06.9 Cough 70811953 R05.9 Atrial fib rillation with rapid ventricular response [id number] 66000 I48.91 [id number] Kristel Jackson MD [facility] ([facility]) [address] [place], [place] [phone] 10/03/2024 11:47:59 10/03/2024 14:39:27 Cough 01942307 R05.9 [id number] Kristel Jackson MD [facility] ([facility]) [address] [place], [place] [phone] 12/14/2024 11:59:24 12/14/2024 18:35:03 History of radiofrequency ablation operation for arrhythmia [id number] Z98.350 [id number] RENETTA MEDINA [facility] ([facility]) [address] [place], [place] [phone] 12/16/2024 12:32:41 12/16/2024 14:36:20 Infection of toenail [id number] L60.0 [id number] Patient wishes to follow up with Dr Verduzco next week for possible partial nail removal. RTC with any new or worsening symptoms. [id number] Kristel Jackson MD [facility] ([facility]) [address] [place], [place] [phone] 01/17/2025 10:43:21 01/18/2025 10:09:17 Atrial fibrillation with rapid ventricular response [id number] 22747 I48.91 he should f/u with his cardiologi st/tuberculosis specialist . he will call to reschedule . he missed his last apt to go to the ER it sounds like. extensive counseling on medication s and next steps what ifs where and what to do in all scenarios. too much to possibly individual ly recap today Acute urin ho tract infection [id number] N39.0 728666 any fever go to [facility] urinary sx's other than fever call. [id number] Kristel Jackson MD [facility] ([facility]) [address] [place] [address] [phone] 01/24/2025 10:54:45 01/24/2025 16:28:46 Atrial fibrillation with rapid ventricular response [id number] 98713 I48.91 he should f/u with his cardiologi st/tuberculosis specialist . he will call to reschedule . he missed his last apt to go to the ER it sounds like. extensive counseling on medication s and next steps what ifs where and what to do in all scenarios. too much to possibly individual ly recap today [id number] Kristel Jackson MD [facility] ([facility]) [address] [place] [address] [phone] 5 01/30/2025 14:04:19 02/04/2025 13:58:22 [id number] Kristel Jackson MD [facility] ([facility]) [address] [place] [address] [phone] 5 01/30/2025 14:16:36 01/30/2025 15:22:28 Chest pain 42015633 R07.9 [id number] Atypical chest pain 1025 52868 R07.89 226496 to er if sx's recur. ekg no signs of ischemiasi nus rhythm with 1st degree av block [id number] RENETTA MEDINA [facility] ([facility]) [address] [place] [address] [phone] 5 04/28/2025 13:10:11 04/28/2025 14:26:33 Acute cough [id number] 89290969 R05.3 [id number] Disease ca used by Rhinovirus 51440236 B34.8 159795 Increase po fluids. Rest. May use otc meds as needed for symptoms. Return to clinic with any new or worsening symptoms. [id number] Kristel Jackson MD [facility] ([facility]) [address] [place] [address] [phone] 5 05/04/2025 12:16:04 05/05/2025 09:34:58 Dysuria 25009693 R30.0 19425 Vertigo 439447640 R42 87942 [id number] Kristel Jackson MD [facility] ([facility]) [address] [place] [address] [phone] 5 05/04/2025 12:07:52 05/06/2025 04:03:49 Dysuria 19412890 R30.0 84379 [id number] Kristel Jackson MD [facility] ([facility]) [address] [place] [address] [phone] 5 05/15/2025 12:32:00 05/16/2025 10:05:38 Viral upper respiratory tract infection 026136700 J06.9 841936 Productive cough 7479693 5 R05.8 206689 cxr i do not see acute findings. however recent onset production to cough with abnormal breath sounds will tx for CAP [id number] Kristel Jackson MD [facility] ([facility]) [address] [place] [address] [phone] 5 05/17/2025 09:46:29 05/18/2025 18:04:16 Pain of left knee joint [id number] 20164 M25.562 359582 Fall in home 48690909 W1 9.XXXA Y92.009 60122441 [id number] Kristel Jackson MD [facility] ([facility]) [address] [place] [address] [id number] 5 05/24/2025 12:57:50 05/24/2025 16:21:23 Preoperative procedure 728184131 Z01.268 0215343 [id number] Kristel Jackson MD [facility] ([facility]) [address] [place] [address] [phone] 5 06/08/2025 12:55:57 06/13/2025 12:01:17 Right lower quadrant pain 833625491 R10.31 105686 mosly likely hernia have noted before. it is not too bothersome . he will be careful and would only want surgery if worsening. [id number] Kristel Jackson MD [facility] ([facility]) [address] [place] [address] [phone] 5 07/14/2025 12:59:34 07/14/2025 13:53:14 Acute constipation 095946932 K59.00 [id number] Taking Metamucilh e took just 30 ml of mom. repeat mom today up to 2 doses. f/u if not improved. [id number] Kristel Jackson MD [facility] ([facility]) [address] [place] [address] [phone] 5 07/25/2025 12:03:40 07/26/2025 09:52:16 Health Concerns Section Related Observation LastModified by Organization Detai ls LastModified Time None Recorded Concern Status LastModified by Organization Details LastModified Time None Recorded Advance Directives Directive None Recorded Payers Insurance Date Sequence Insurance Name Policy Number Policy Guillen Covered Member ID Guillen Member ID Guarantor Name 07/14/2025 [place] - [id number] (MEDICARE) Germán Lovell [place] [id number] Germán Lovell [place] 07/26/2025 2 [employer] (MEDICARE SUPPLEMENT) Germán Lovell [place] [id number] Germán Lovell [place] 07/14/2025 2 [facility] Germán Lovell [place] [id number] Germán Lovell [place] 07/14/2025 1 [place]IC[place]: [place] Germán Lovell [place] [id number] Germán Lovell [place] Notes Date Note Type Note Provider Name and Address Organization Details Recorded Time 5 text/html Joint PainReported by PatientHPIFor location, patient reportsleft knee. For severity, patient reportsno change. For duration, patient reportspresent <1 month (3 days). For timing, patient reportssudden. For context, patient reportstrauma(patient fell when he tripped over a limb and his knee hit concrete). For associated symptoms, (edema, bruising, knee pain (worse if bearing weight)).ROS as noted in the HPI Kristel Jackson MD [address] [place] [address], [phone], [facility], [place]in 05/17/2025 10:11:29 5 text/html Abdominal PainReported by [...] timing, patient reportsintermittent. For aggravating factors, patient reportsmovement/positioni ng(coughing, twisting, lifting something heavy). For location, (right groin).Patient reports that he doesn't have any bulge. He just feels a painROS as noted in the HPI Kristel Jackson MD [address] [place] [address], [phone], [facility] 06/08/2025 13:25:52 5 text/html ConstipationReported by PatientIFor quality, patient reportsstraining. For duration, patient reportspresent [...] lumpy bmsROS as noted in the HPI Kristel Jackson MD [address] [place] [address], [phone], [facility] 07/14/2025 13:43:23 5 text/html ConstipationReported by PatientIFor quality, patient reportsimproving. For duration, patient reportspresent [...] etc. normal stress test 11 months ago. Kristel Jackson MD [address] [place] [address], [phone], [facility] 07/25/2025 12:40:24
[2025-07-30 01:11] VITALS: BP 127/76; PULSE 93; RESP 18; TEMP 36.6; O2SAT 95; BMI 23.5
--- NOTE | 2025-07-30 01:11 | ECG_ITS ---
[place] [employer] Test Date: 2025-07-30 Pat Name: Jesus Avilez Department: Room: Gender: Male Mba Intern: : 1940 Requested By: Robbie Lee Order Number: [id number] Crawford MD: Roldan Cabello M.D. Measurements Intervals [place] Rate: 104 P: 0 SD: 0 QRS: -44 QRSD: 90 T: 106 QT: 361 QTc: 476 Interpretive Statements ATRIAL FIBRILLATION WITH RAPID VENTRICULAR RESPONSE LEFT AXIS DEVIATION [QRS AXIS < -30] INCOMPLETE RIGHT BUNDLE BRANCH BLOCK MINIMAL VOLTAGE CRITERIA FOR LVH, CONSIDER NORMAL VARIANT [MEETS CRITERIA IN ONE OF: R(aVL), S(V1), R(V5), R(V5/V6)+S(V1)] MODERATE T-WAVE ABNORMALITY, CONSIDER LATERAL ISCHEMIA [-0.1+ mV T-WAVE IN I/aVL/V5/V6] Compared to ECG 07/11/2025 00:21:09 Sinus rhythm no longer present Electronically Signed On 07-30-2025 11:45:03 AUTOMATIC LOG CUT OFF SAWYER by Roldan Cabello M.D. [email or web address]
--- NOTE | 2025-07-30 01:37 | XRR_ITS ---
PROCEDURE INFORMATION: Exam: XR Chest Exam date and time: 07/30/2025 1:54 AM Age: 85 years old Clinical indication: Pain; Prior surgery; Surgery date: 6+ months; Surgery type: Node ablation; C/O palpitations TECHNIQUE: Imaging protocol: Radiologic exam of the chest. Views: 1 view. COMPARISON: CR XR chest 2V* [id number] 05/15/2025 12:34 PM FINDINGS: Tubes, catheters and devices: Left atrial appendage occlusion device present. Lungs: Unremarkable. No consolidation. Pleural spaces: Unremarkable. No pleural effusion. No pneumothorax. Heart/Mediastinum: Unremarkable cardiac silhouette. Bones/joints: Widening left acromioclavicular joint. XR/XR chest 1V portable [id number] IMPRESSION: Negative for acute chest pathology.
[2025-07-30 01:46] LABS: Hematocrit 43.0 % (37-53); Hemoglobin 14.50 g/dL (11.27-16.99); Mean Corpuscular HGB Conc 33.7 g/dL (30-55); Mean Corpuscular Hemoglobin 32.4 pg (27-33); Mean Corpuscular Volume 96.2 fl (82-101); Nucleated Red Blood Cells % 0 %; Platelet Count 214 10^3/cmm (157-399); Red Blood Count 4.47 10^6/uL (3.85-5.65); White Blood Count 8.51 10^3/uL (3.29-11.43)
[2025-07-30] MEDS: metoprolol tartrate 1 mg/1 mL SDV 5 mL 2.5 MG IVP (01:47)
[2025-07-30] MEDS: digoxin 250 mcg/ml INJ 2 mL 125 MCG IVP (01:47)
[2025-07-30 01:59] LABS: Troponin(5th) Baseline 13 ng/L (0-15)
[2025-07-30 02:09] LABS: Alanine Aminotransferase 15 U/L (0-41); Albumin Level 4.5 g/dL (3.5-5.2); Alkaline Phosphatase 145 U/L (40-130); Anion Gap 13.5 (5-19); Aspartate Amino Transferase 24 U/L (0-40); Blood Urea Nitrogen 18 mg/dL (8-23); Calcium 9.1 mg/dL (8.5-10.5); Carbon Dioxide 26 mmol/L (22-29); Chloride 101 mmol/L (98-107); Globulin 2.2 g/dL (1.3-4.6); Glucose 105 mg/dL (65-115); NT Pro B Type Natriuretic Pept 318 pg/mL (0-450); Osmolality Calculated 284 mOsm/kg (285-295); Potassium 4.5 mmol/L (3.5-5.1); Sodium 136 mmol/L (136-145); Thyroid Stimulating Hormone 3.05 uIU/mL (0.27-4.20); Total Protein 6.7 g/dL (6.6-8.7)
[2025-07-30 02:11] VITALS: BP 99/72; PULSE 94; O2SAT 95
--- NOTE | 2025-07-30 02:32 | W.ED.ARRPALP ---
HPI - Arrhythmia/Palpitations General: Chief Complaint: Arrhythmia/Palpitations Stated Complaint: fast heart rate mild chest pain Time Seen by Provider: 07/30/25 01:33 History of Present Illness: Patient is an 85-year-old male with a known history of atrial fibrillation who presents today reporting a recent spike in his heart rate. He describes feeling lightheaded at times during these episodes. When questioned about chest pain, he reports experiencing a little bit, but not much discomfort. He denies significant shortness of breath. The patient states his symptoms are improving at the time of this encounter. 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 He also reports recent constipation that has since resolved and denies any other concurrent illnesses, fever, cough, or diarrhea. Related Data Home Medications ?Medication ?Instructions ?Recorded ?Confirmed melatonin 5 mg tablet 5 mg PO BEDTIME 06/02/23 12/20/24 omega-3 fatty acids 1,000 mg 1,000 mg PO QAM 06/02/23 12/20/24 capsule phenytoin sodium extended 100 mg 100 mg PO BID 09/06/23 12/20/24 capsule (Dilantin Extended) vit C 250 mg-vit E 90 mg-zinc 40 1 tab PO BID 09/06/23 12/20/24 mg-copper 1 [id number] capsule (PreserVision AREDS-2) aspirin 81 mg tablet,delayed 81 mg PO DAILY 01/01/24 12/20/24 release Previous Rx's ?Medication ?Instructions ?Recorded metoprolol tartrate 100 mg tablet 100 mg PO BID #60 tabs 09/17/24 cefdinir 300 mg capsule 300 mg PO BID #14 caps 01/15/25 diltiazem HCl 30 mg tablet 30 mg PO Q8H #30 tabs 01/15/25 Allergies Allergy/AdvReac Type Severity Reaction Status Date / Time levetiracetam (From [facility]) Allergy ADR-Halluci Verified 03/08/25 14:43 venancio ON LICENSE OF [facility] ED ON LICENSE OF [facility]: Medical History (Updated 07/30/25 @ 02:45 by Robbie Somers DO) Anxiety Atrial fibrillation with rapid ventricular response Atrial fibrillation, new onset Urethral stricture Lower urinary tract symptoms (LUTS) Surgical History Hx of tonsillectomy H/O arthroscopy of knee left History of carpal tunnel release left H/O rotator cuff surgery left Family History Father , at age 63 Cancer tongue Mother , at age 64 Lung disease Social History Smoking and tobacco/nicotine status: never used tobacco/nicotine Alcohol intake: current Alcohol intake frequency: 0-2 Drinks per Day Marital status: Current occupational status: retired Physical Exam Const: COMMON NORMALS: no acute distress GENERAL APPEARANCE: cooperative; not ill appearing and not frail appearing HENMT: COMMON NORMALS: normocephalic, atraumatic and Normal external nose present HEAD & SCALP: normocephalic and atraumatic FACE & SINUS: normal facial exam and face symmetric NOSE: Normal external nose present Eye: COMMON NORMALS: Equal, round and reactive pupils present and EOMs intact bilaterally PUPIL: Yes Equal, round and reactive pupils present Neck/C-Spine: GENERAL: Yes trachea midline Chest: CHEST: Yes Symmetrical chest wall rise Resp: COMMON NORMALS: normal respiratory effort, No retractions, No use of accessory muscles and clear to auscultation bilaterally AUSCULTATION: clear to auscultation bilaterally Cardio: RATE: tachycardic RHYTHM: abnormal rhythm irregularly irregular GI: COMMON NORMALS: Normal to inspection, nondistended, normoactive bowel sounds present Extremity: COMMON NORMALS: no pedal edema Neuro: BEVERLEY COMA SCALE: document GCS findings Beverley coma scale eye opening: Spontaneous Beverley coma scale verbal response: Orientated Stem coma scale motor response: Obey commands Beverley coma scale total score: 15 SENSORY EXAM: Yes extremities (intact) Psych: COMMON NORMALS: speech normal SPEECH: Yes normal speech Skin: COMMON NORMALS: no rashes or lesions noted GENERAL SKIN EXAM: no rashes or lesions noted Course Vital Signs: Vital signs: Vital Signs Temperature 97.8 F 07/30/25 01:11 Pulse Rate 53 L 07/30/25 03:03 Respiratory Rate 18 07/30/25 01:11 Blood Pressure 96/60 07/30/25 03:03 Pulse Oximetry 95 07/30/25 03:03 MDM - Arrhythmia/Palpitations Medical Decision Making Patient's symptoms are essentially resolved on my examination. He has been seen frequently for this. Heart rate is around 100 and irregular. He is given metoprolol, and a small dose of digoxin. Heart rate seemed improved to some degree, but was still in the 90s. He was given a small dose of diltiazem bolus, with resolution, and conversion to sinus rhythm in the 50s and 60s. He is asymptomatic at this point. Chest x-ray is negative. CBC is normal. BMP is normal. TSH is 3. Troponin is 13. BNP is 318. No other laboratory abnormalities. With resolution of his symptoms, conversion, he was discharged. He is stable at this point. Return for any return or worsening symptoms. Lab Data 07/30/25 01:18 07/30/25 01:18 Radiology Impressions Chest X-Ray 07/30/25 01:37 IMPRESSION: Negative for acute chest pathology. Laboratory Results WBC 8.51 10^3/uL (3.29-11.43) 07/30/25 01:18 RBC 4.47 10^6/uL (3.85-5.65) 07/30/25 01:18 Hgb 14.50 g/dL (11.27-16.99) 07/30/25 01:18 Hct 43.0 % (37-53) 07/30/25 01:18 MCV 96.2 fl (82-101) 07/30/25 01:18 MCH 32.4 pg (27-33) 07/30/25 01:18 MCHC 33.7 g/dL (30-55) 07/30/25 01:18 RDW 12.9 % (12.1-15.1) 07/30/25 01:18 Plt Count 214 10^3/cmm (157-399) 07/30/25 01:18 MPV 8.8 fL (7.4-10.4) 07/30/25 01:18 Neut % (Auto) 53.4 % 07/30/25 01:18 Lymph % (Auto) 32.0 % 07/30/25 01:18 Gove % (Auto) 10.8 % 07/30/25 01:18 Eos % (Auto) 2.6 % 07/30/25 01:18 Baso % (Auto) 0.8 % 07/30/25 01:18 Neut # (Auto) 4.55 10^3/uL (1.8-7.7) 07/30/25 01:18 Lymph # (Auto) 2.7 10^3/uL (0.8-4.8) 07/30/25 01:18 Gove # (Auto) 0.9 10^3/uL (0.2-0.9) 07/30/25 01:18 Eos # (Auto) 0.2 10^3/uL (0.0-0.8) 07/30/25 01:18 Baso # (Auto) 0.1 10^3/uL (0.0-0.1) 07/30/25 01:18 Nucleated RBC % (auto) 0 % 07/30/25 01:18 Nucleated RBCs # 0.0 /100WBC 07/30/25 01:18 Sodium 136 mmol/L (136-145) 07/30/25 01:18 Potassium 4.5 mmol/L (3.5-5.1) 07/30/25 01:18 Chloride 101 mmol/L (98-107) 07/30/25 01:18 Carbon Dioxide 26 mmol/L (22-29) 07/30/25 01:18 Anion Gap 13.5 (5-19) 07/30/25 01:18 BUN 18 mg/dL (8-23) 07/30/25 01:18 Creatinine 0.9 mg/dL (0.7-1.2) 07/30/25 01:18 GFR Calculation Not Reportable 07/30/25 01:18 Glucose 105 mg/dL (65-115) 07/30/25 01:18 Calculated Osmolality 284 mOsm/kg (285-295) L 07/30/25 01:18 Calcium 9.1 mg/dL (8.5-10.5) 07/30/25 01:18 Total Bilirubin 0.2 mg/dL (0.15-1.2) 07/30/25 01:18 AST 24 U/L (0-40) 07/30/25 01:18 ALT 15 U/L (0-41) 07/30/25 01:18 Alkaline Phosphatase 145 U/L (40-130) H 07/30/25 01:18 Troponin T Baseline 13 ng/L (0-15) 07/30/25 01:18 NT-Pro-B Natriuret Pep 318 pg/mL (0-450) 07/30/25 01:18 Total Protein 6.7 g/dL (6.6-8.7) 07/30/25 01:18 Albumin 4.5 g/dL (3.5-5.2) 07/30/25 01:18 Globulin 2.2 g/dL (1.3-4.6) 07/30/25 01:18 TSH 3.05 uIU/mL (0.27-4.20) 07/30/25 01:18 All radiology interpretation(s) finalized by discharge EKG Data EKG 1: Interpretation: EKG time: 110. Read 011 Atrial fib. Rate 100. LAD. QTc 476. no acute ST wave change. Other EKG comments: Chest X-Ray 07/30/25 01:37 IMPRESSION: Negative for acute chest pathology. Discharge Plan Discharge Patient Disposition: Home Clinical Impression: Atrial fibrillation Qualifiers: Atrial fibrillation type: unspecified Qualified Code(s): I48.91 - Unspecified atrial fibrillation Condition: Stable Prescriptions: No Action melatonin 5 mg Tablet 5 mg PO BEDTIME omega-3 fatty acids 1,000 mg Capsule 1,000 mg PO QAM phenytoin sodium extended [Dilantin Extended] 100 mg capsule 100 mg PO BID PreserVision AREDS-2 250-90-40-1 mg Capsule 1 tab PO BID aspirin 81 mg Tablet,Delayed Release (Dr/Ec) 81 mg PO DAILY diltiazem HCl 30 mg tablet 30 mg PO Q8H Qty: 30 0RF cefdinir 300 mg capsule 300 mg PO BID Qty: 14 0RF metoprolol tartrate 100 mg tablet 100 mg PO BID Qty: 60 0RF Discharge Orders: Discharge ED (Routine); Ordered 07/30/25 Ordered By: Robbie Somers Referrals: Darell Jackson MD [Primary Care Provider, Family Practice] - 1-3 days Patient Instructions: A-fib (Atrial Fibrillation) (ED), Opioid Safety, Pain Management, Patient Portal & Danielle Instructions Activity Restrictions/Additional Instructions: Return for repeated episodes of chest discomfort, palpitations or fast heart rate, any other concerns. Follow-up with your doctor next week. Print Language: Cook Islander Coding Level of Care Code ED [employer] Supervisor for [facility]
[2025-07-30] MEDS: dilTIAZem 5 mg/mL SDV 5 mL 15 MG IVP (02:37)
[2025-07-30 02:38] VITALS: BP 119/87; PULSE 90; O2SAT 95
[2025-07-30 03:03] VITALS: BP 96/60; PULSE 53; O2SAT 95
== END 2025-07-30 03:05 | disposition home or self-care (01) ==
PROVIDERS: Emergency Provider Emergency Medicine; PCP Family Medicine
DX: I48.91 Unspecified atrial fibrillation (principal); Z79.82 Long term (current) use of aspirin
CPT/HCPCS: 71045; 80053; 83880; 84443; 84484; 85025; 93005; 96374; 96375; 99285; J1160; J3490